=== PATIENT | male | born 1950 | race African-American/Black ===

== ENCOUNTER 2018-11-25 09:31 | Inpatient (IN) | payer MEDICARE, MEDICAID ==
[~2018-11-25] VITALS: Ht 177.8 cm; Wt 110.2 kg
[~2018-11-25 09:31] MED LIST: ALLOPURINOL100 M1 ORAL; ASPIRIN81 MG ORAL; ATORVASTATIN CA20 MG ORAL; CARVEDILOL25 MG ORAL; CATAPRES0.2 MG ORAL; DIGOXIN125 MCG ORAL; DILTIAZEM 24HR120 M1 ORAL; DOCUSATE SODIU100 MG ORAL; ELESTAT5 ML BOTH EYES; FERROUS SULFAT325 MG ORAL; FUROSEMIDE40 MG ORAL; HYDRALAZINE HCL50 MG PO; LANTUS5 UNITS SUBQ; LISINOPRIL10 MG ORAL; METOPROLOL SUCC50 MG ORAL; MILK OF MA400 MG/51 ORAL; NIFEDIPINE ER90 M3 ORAL; NITROGLYCERIN0.4 MG SL; POTASSIUM CHLO20 ME1 ORAL; REDNESS RELIEF15 M1 BOTH EYES; VITAMIN D1000 UNI1 ORAL; WARFARIN SODIU7.5 MG ORAL; ZAROXOLYN2.5 MG ORAL
[2018-11-25] MEDS ORDERED: ZOLOFT25 MG ORAL (09:39)
[2018-11-25] MEDS ORDERED: COZAAR25 MG ORAL (09:39)
[2018-11-25] MEDS ORDERED: ABILIFY2 MG ORAL (09:39)
[2018-11-25] MEDS ORDERED: ATORVASTATIN CA10 MG ORAL (09:39)
[2018-11-25] MEDS ORDERED: COUMADIN1 MG ORAL (09:39)
[2018-11-25] MEDS ORDERED: PROTONIX40 MG ORAL (09:39)
[2018-11-25 09:40] VITALS: BP 127/64
--- NOTE | 2018-11-25 09:40 | NUR ---
ED Nurse Note: BROUGHT IN BY RA 60 FROM HOME DUE TO ALOC. MISSED DIALYSIS TODAY; T/TH/SAT. BS WAS 20 AT SCENE, GLUCAGON GIVEN BY EMS. BS IS 90 AT THE BEDSIDE. PT IS A/OX3.
--- NOTE | 2018-11-25 09:45 | NUR ---
ED Nurse Note: PACEMAKER ON THE LEFT CHEST NOTED
--- NOTE | 2018-11-25 09:51 | Emergency Room Report ---
History of Present Illness General Chief Complaint: Altered Level of Consciousness Source: Medical Record, EMS Present Illness HPI Patient has history of diabetes hypertension and cardiac disease. Patient apparently is on a blood thinner. Patient also has a history of renal failure and is on dialysis. Usually gets dialysis Tuesdays and Saturdays. Patient was TO get dialysis today. Patient apparently was more confused since yesterday and this morning was very difficult to arouse. Paramedics were contacted about the patient here for further evaluation. On arrival they found that the patient was hypoglycemic. They gave patient sugar in the mouth and it appeared to improve but then he was again hypoglycemic and the paramedics gave him one dose of glucagon. Patient now is more responsive but still appears to be confused. No further history is available as time. Symptoms noted to be highly severe. No noted history of fever cough runny nose or sore throat.No other modifying factors. No other associated signs and symptoms. No other complaints were noted. Allergies: Coded Allergies: No Known Allergies (Verified , 07/21/11) Patient History Past Medical History: DM, HTN, CAD, AFib, renal disease, dialysis - Saturday Past Surgical History: other - Right AV fistula Social History Narrative no history of alcohol drug or tobacco use Reviewed Nursing Documentation: PMH: Agreed; PSxH: Agreed Nursing Documentation-PMH Past Medical History: No History, Except For Hx Cardiac Problems: Yes Hx Hypertension: Yes Hx Pacemaker: No Hx Asthma: Yes - PNA Hx COPD: Yes Hx Diabetes: Yes Hx Cancer: No Hx Gastrointestinal Problems: Yes Hx Dialysis: No - POOR KIDNEY FUNCTION Hx Neurological Problems: Yes Hx Cerebrovascular Accident: Yes Hx Headaches: Yes Hx Weakness: Yes - lower extreities Review of Systems All Other Systems: limited - Poor mental status Physical Exam Vital Signs Date Time Temp Pulse Resp B/P (MAP) Pulse Ox O2 Delivery O2 Flow Rate FiO2 11/25/18 09:35 97.3 69 18 110/67 98 Room Air Sp02 EP Interpretation: reviewed, normal General Appearance: alert, other - Appears confused, Chronically Ill Head: atraumatic Eyes: bilateral eye normal inspection ENT: dry mucus membranes Neck: normal inspection, supple, no bony tend Respiratory: normal inspection, lungs clear, normal breath sounds, no respiratory distress, no retraction, no wheezing Cardiovascular #1: no edema, irregularly irregular Gastrointestinal: normal inspection, normal bowel sounds, soft, no hernia Genitourinary: no CVA tenderness Musculoskeletal: normal inspection, back normal Neurologic: alert, responsive, other - Grossly nonfocal Psychiatric: depressed affect Skin: normal inspection, normal color, no rash Procedures Critical Care Time Critical Care Time Patient had a critical medical condition which untreated could potentially result in life or limb threatening injury. Total critical care time excluding procedures was approximately 45 minutes. Medical Decision Making Diagnostic Impression: Primary Impression: Altered level of consciousness Additional Impressions: Hypoglycemia Fluid overload Elevated troponin ER Course Patient presents emergency department today complaining severe weakness shortness of breath hypoglycemia. Differential diagnoses include acute electrolyte abnormality, sepsis, acute DC, dietary noncompliance just name a few.Given the severity of the patient's presentation I felt this is a highly complex patient. This patient required extensive workup. Patient's laboratory workup shows glucose which is appropriate. Patient chest x-ray shows fluid congestion. Given the patient has altered mental status hypoglycemia which require repeated doses of intervention patient will be admitted to telemetry for further treatment case was discussed with Dr. Donohue for admission. Case also discussed with Dr. Francisco Javier Abraham from nephrology. Labs Test 11/25/18 10:20 11/25/18 12:10 White Blood Count 10.6 K/UL (4.8-10.8) Red Blood Count 4.81 M/UL (4.70-6.10) Hemoglobin 15.4 G/DL (14.2-18.0) Hematocrit 48.5 % (42.0-52.0) Mean Corpuscular Volume 101 FL (80-99) Mean Corpuscular Hemoglobin 32.1 PG (27.0-31.0) Mean Corpuscular Hemoglobin Concent 31.8 G/DL (32.0-36.0) Red Cell Distribution Width 15.4 % (11.6-14.8) Platelet Count 201 K/UL (150-450) Mean Platelet Volume 9.7 FL (6.5-10.1) Neutrophils (%) (Auto) 79.3 % (45.0-75.0) Lymphocytes (%) (Auto) 11.3 % (20.0-45.0) Monocytes (%) (Auto) 5.5 % (1.0-10.0) Eosinophils (%) (Auto) 2.6 % (0.0-3.0) Basophils (%) (Auto) 1.2 % (0.0-2.0) Prothrombin Time 16.5 SEC (9.30-11.50) Prothromb Time International Ratio 1.6 (0.9-1.1) Activated Partial Thromboplast Time 28 SEC (23-33) Sodium Level 134 MMOL/L (136-145) Potassium Level 6.3 MMOL/L (3.5-5.1) Chloride Level 93 MMOL/L (98-107) Carbon Dioxide Level 19 MMOL/L (21-32) Anion Gap 22 mmol/L (5-15) Blood Urea Nitrogen 93 mg/dL (7-18) Creatinine 10.2 MG/DL (0.55-1.30) Estimat Glomerular Filtration Rate 6.2 mL/min (>60) Glucose Level 226 MG/DL (74-106) Calcium Level 8.5 MG/DL (8.5-10.1) Total Bilirubin 0.6 MG/DL (0.2-1.0) Aspartate Amino Transf (AST/SGOT) 35 U/L (15-37) Alanine Aminotransferase (ALT/SGPT) 30 U/L (12-78) Alkaline Phosphatase 86 U/L (46-116) Total Creatine Kinase 406 U/L (26-308) Creatine Kinase MB 7.7 NG/ML (0.0-3.6) Creatine Kinase MB Relative Index 1.8 Troponin I 0.078 ng/mL (0.000-0.056) C-Reactive Protein, Quantitative 1.5 mg/dL (0.00-0.90) Pro-B-Type Natriuretic Peptide 35280 pg/mL (0-125) Total Protein 7.8 G/DL (6.4-8.2) Albumin 3.5 G/DL (3.4-5.0) Globulin 4.3 g/dL Albumin/Globulin Ratio 0.8 (1.0-2.7) Lipase 89 U/L (73-393) EKG Diagnostic Results Rate: normal Rhythm: other - Atrial flutter, irregular ST Segments: no acute changes Rhythm Strip Diag. Results EP Interpretation: yes Rate: 80s Rhythm: no PVC's, other - Atrial flutter, no other ectopy Chest X-Ray Diagnostic Results Chest X-Ray Diagnostic Results : Chest X-Ray Ordered: Yes # of Views/Limited/Complete: 1 View Indication: Shortness of Breath EP Interpretation: No Impression: Other - Cardiomegaly, CHF, pacemaker Last Vital Signs Date Time Temp Pulse Resp B/P (MAP) Pulse Ox O2 Delivery O2 Flow Rate FiO2 11/25/18 09:35 97.3 69 18 110/67 98 Room Air Status: improved Disposition: ADMITTED INPATIENT Condition: Serious Viraj Alanis MD Nov 25, 2018 09:51
--- NOTE | 2018-11-25 10:10 | NUR ---
ED Nurse Note: UNABLE TO GET IV ACCESS. CONTACTED SECURITY COMPLIANCE ENGINEER TO DRAW BLOOD. NOTIFIED DR. YEH.
--- NOTE | 2018-11-25 10:13 | NUR ---
ED Nurse Note: no iv access. apple juice was given. bs 90
[2018-11-25] MEDS ORDERED: Heparin 2000 units/Ns 1000ml INJ ONE (10:15)
[2018-11-25] MEDS ORDERED: Lidocaine 1% Plain 30 ml INJ ONE (10:15)
--- NOTE | 2018-11-25 10:15 | NUR ---
ED Nurse Note: VENTILATION EQUIPMENT TENDER AT THE BEDSIDE. PER PT, HE NO LONGER PRODUCE URINE. NOTIFIED DR. YEH. PER DR. YEH, IT'S OK NOT TO COLLECT URINE.
--- NOTE | 2018-11-25 10:20 | NUR ---
ED Nurse Note: RECEIVED PICC ORDERED. PICC LINE TEAM CONTACTED. PT SIGNED PICC LINE CONSENT FORM, VERBALIZED UNDERSTANDING.
[2018-11-25] MEDS ORDERED: Heparin 2000 units/Ns 1000ml INJ SCH (10:30)
[2018-11-25] MEDS ORDERED: Lidocaine 1% Plain 30 ml INJ SCH (10:30)
[2018-11-25 10:38] LABS: BASOPHILS % (AUTO) 1.2 % (0.0-2.0); EOSINOPHILS % (AUTO) 2.6 % (0.0-3.0); HEMATOCRIT 48.5 % (42.0-52.0); HEMOGLOBIN 15.4 G/DL (14.2-18.0); LYMPHOCYTES % (AUTO) 11.3 % (20.0-45.0); MEAN CORPUSCULAR VOLUME 101 FL (80-99); MONOCYTES % (AUTO) 5.5 % (1.0-10.0); NEUTROPHILS % (AUTO) 79.3 % (45.0-75.0); PLATELET COUNT 201 K/UL (150-450); RED BLOOD COUNT 4.81 M/UL (4.70-6.10); RED CELL DISTRIBUTION WIDTH 15.4 % (11.6-14.8); WHITE BLOOD COUNT 10.6 K/UL (4.8-10.8)
[2018-11-25 10:44] LABS: INR 1.6 (0.9-1.1)
--- NOTE | 2018-11-25 10:50 | NUR ---
ED Nurse Note: PT WENT DOWN FOR PICC LINE INSERTION VIA GURNEY
[2018-11-25] MEDS ORDERED: Miralax 17gm pkt ORAL PRN (11:30)
[2018-11-25] MEDS ORDERED: Albuterol/Ipratropium 3ml neb HHN PRN (11:30)
[2018-11-25 11:40] VITALS: BP 146/84
--- NOTE | 2018-11-25 12:04 | Diagnostic Imaging Report ---
Indications: Needs long-term IV access Technique: Ultrasound confirms patent compressible left basilic vein. Total sterile technique, including sterile probe cover and sterile gel, hat, mask, sterile gown, large sterile drape, and preparation with 2% chlorhexidine utilized. Local anesthesia with 1% lidocaine. Under real-time ultrasound guidance, puncture basilic vein using 21-gauge needle, documented and archived, passage 0.018 guidewire under direct fluoroscopy, over which was passed a 5 Green[place]ic peel-away sheath. Guidewire would not pass beyond the innominate vein, despite attempts at manipulating with a Kumpe catheter, presumably due to the presence of a pacemaker. Right-sided access not possible due to the presence of a dialysis fistula. Guidewire was used to determine appropriate catheter length. 5 Green[place]ic Bard dual-lumen power PICC cut to 22 cm. It was inserted through the peel-away sheath. Peel-away sheath and guidewire removed. Catheter fixed to the skin. Both catheter ports aspirated and flushed. Patient tolerated procedure well, without immediate complication. Digital radiograph documents satisfactory catheter tip position, at the level of the left axillary vein. Total fluoroscopy time 149 seconds. Total dose area product [id number] mGycm2 Total number of images: 2 Impression: Placement of left arm PICC, as described, cut short due to inability to pass a guidewire centrally, suitable only for use as a midline Procedure discussed by phone with Dr. Alanis in the emergency room
--- NOTE | 2018-11-25 12:13 | NUR ---
ED Nurse Note: MIDLINE IN PLACED ON THE LEFT UPPER ARM. BS 174;
--- NOTE | 2018-11-25 12:43 | NUR ---
ED Nurse Note: VRE/CRE/MRSA SWAB SENT DOWN TO THE AL[facility]. [place] LIST DONE. WAITING FOR THE REMAINING LAB RESULTS TO COME BACK.
[2018-11-25 12:57] LABS: ALANINE AMINOTRANSFERASE 30 U/L (12-78); ALBUMIN 3.5 G/DL (3.4-5.0); ALBUMIN/GLOBULIN RATIO 0.8 (1.0-2.7); ALKALINE PHOSPHATASE 86 U/L (46-116); ANION GAP 22 mmol/L (5-15); ASPARTATE AMINO TRANSFERASE 35 U/L (15-37); BILIRUBIN,TOTAL 0.6 MG/DL (0.2-1.0); BLOOD UREA NITROGEN 93 mg/dL (7-18); CALCIUM 8.5 MG/DL (8.5-10.1); CARBON DIOXIDE 19 MMOL/L (21-32); CHLORIDE 93 MMOL/L (98-107); CKMB 7.7 NG/ML (0.0-3.6); CREATINE KINASE 406 U/L (26-308); CREATININE 10.2 MG/DL (0.55-1.30); SODIUM 134 MMOL/L (136-145)
[2018-11-25 13:02] LABS: POTASSIUM 6.3 MMOL/L (3.5-5.1)
--- NOTE | 2018-11-25 13:07 | Diagnostic Imaging Report ---
Indication: Cough Technique: One view of the chest Comparison: 10/19/2013 Findings: The heart is enlarged. There is a left chest pacemaker. There is mild interstitial congestion, similar to the prior study. There may be a small amount of pleural fluid on the left Impression: Cardiomegaly with evidence of congestive heart failure and possible left pleural effusion
--- NOTE | 2018-11-25 13:08 | NUR ---
ED Nurse Note: NOTIFIED DR. YEH REGARDING PT'S K OF 6.4, PER DR. YEH, PT IS RENAL FAILURE AND HE IS OKAY TO BE TRANSFER TO TELEMETRY. WILL CALL FOR THE REPORT.
--- NOTE | 2018-11-25 13:11 | NUR ---
ED Nurse Note: TELEPHONE REPORT GIVEN TO KALEIGH GANNON FROM TELEMETRY. ENDORSED TO KALEIGH GANNON THAT POTASSIUM IS 6.3. WILL TRANSFER THE PATIENT.
--- NOTE | 2018-11-25 13:20 | NUR ---
TRANSFER TO FLOOR: Patient transferred to #[id number] as ordered via gurney with mfts. Report given to KALEIGH Covington. Belongings given to patient. No s/s of distress.
--- NOTE | 2018-11-25 13:21 | NUR ---
NURSE NOTES: Patient is transferred from ED and received report from KALEIGH Cruz. Patient is alert and oriented x3. Able to follow direction. Drowsy and fatigue. Left upper arm midline double lumens noted. patent and intact. Skin intact. Inventory check done. Put cna hha on. VSS. Will continue plan of care.
--- NOTE | 2018-11-25 14:01 | History and Physical ---
History of Present Illness General Date patient seen: Nov 25, 2018 Reason for Hospitalization: Altered Level of Consciousness Present Illness HPI 68 year old male with hx of DM, HTN, CAD, AFib, end stage renal disease on dialysis. on Tuesdays and Saturdays brought in to ER because he was apparently more confused and was very difficult to arouse. Paramedics found that the patient was hypoglycemic. They gave patient sugar in the mouth and it appeared to improve but then he was again hypoglycemic and the paramedics gave him one dose of glucagon. He is admitted to telemetry for persistent hypoglycemia. Allergies: Coded Allergies: No Known Allergies (Verified , 07/21/11) Medication History Scheduled Allopurinol* (Allopurinol*), 100 MG ORAL BID, (Reported) Aripiprazole* (Abilify*), Unknown Dose ORAL DAILY, (Reported) Aspirin* (Aspirin*), 81 MG ORAL DAILY, (Reported) Atorvastatin Calcium* (Atorvastatin Calcium*), 10 MG ORAL BEDTIME, (Reported) Atorvastatin Calcium* (Lipitor*), Unknown Dose ORAL BEDTIME, (Reported) Cholecalciferol (Vitamin D3)* (Vitamin D*), 1,000 UNIT ORAL DAILY, (Reported) Digoxin* (Digoxin*), 125 MCG ORAL DAILY, (Reported) Docusate Sodium* (Docusate Sodium*), 100 MG ORAL TID, (Reported) Ferrous Sulfate* (Ferrous Sulfate*), 325 MG ORAL BID, (Reported) Furosemide* (Lasix*), 40 MG ORAL DAILY, (Reported) Hydralazine Hcl* (Hydralazine Hcl*), 50 MG PO EVERY 8 HOURS, (Reported) Insulin Glargine (Lantus), 35 UNITS SUBQ BID, (Reported) Lisinopril* (Lisinopril*), 20 MG ORAL DAILY, (Reported) Losartan Potassium* (Cozaar*), Unknown Dose ORAL DAILY, (Reported) Metolazone (Metolazone), 2.5 MG ORAL DAILY, (Reported) Metoprolol Succinate* (Metoprolol Succinate*), 50 MG ORAL EVERY 8 HOURS, ( Reported) Nifedipine Er* (Nifedipine Er*), 60 MG ORAL BID, (Reported) Nitroglycerin (Nitroglycerin), 0.4 MG SL PRN, (Reported) Pantoprazole* (Protonix*), Unknown Dose ORAL DAILY, (Reported) Potassium Chloride* (K-Dur*), 20 MEQ ORAL DAILY, (Reported) Sertraline Hcl* (Zoloft*), Unknown Dose ORAL DAILY, (Reported) Warfarin Sod* (Warfarin Sod*), 7.5 MG ORAL DAILY, (Reported) Warfarin Sod* (Coumadin*), Unknown Dose ORAL DAILY, (Reported) Patient History Healthcare decision maker Resuscitation status Advanced Directive on File Past Medical/Surgical History Past Medical/Surgical History: (1) Diabetes (2) COPD (chronic obstructive pulmonary disease) (3) ESRF (end stage renal failure) Review of Systems All Other Systems: negative except mentioned in HPI Physical Exam General Appearance: WD/WN Lines, tubes and drains: peripheral HEENT: normocephalic, atraumatic Neck: non-tender, normal alignment Respiratory/Chest: chest wall non-tender, lungs clear Breasts: no masses Cardiovascular/Chest: normal peripheral pulses Abdomen: non tender Last 24 Hour Vital Signs Date Time Temp Pulse Resp B/P (MAP) Pulse Ox O2 Delivery O2 Flow Rate FiO2 11/25/18 11:40 97.3 92 18 146/84 98 Nasal Cannula 2.0 11/25/18 09:40 97.3 92 18 127/64 98 Room Air 11/25/18 09:40 69 18 Room Air 11/25/18 09:35 97.3 69 18 110/67 98 Room Air Laboratory Tests Test 11/25/18 10:20 11/25/18 12:10 White Blood Count 10.6 K/UL (4.8-10.8) Red Blood Count 4.81 M/UL (4.70-6.10) Hemoglobin 15.4 G/DL (14.2-18.0) Hematocrit 48.5 % (42.0-52.0) Mean Corpuscular Volume 101 FL (80-99) H Mean Corpuscular Hemoglobin 32.1 PG (27.0-31.0) H Mean Corpuscular Hemoglobin Concent 31.8 G/DL (32.0-36.0) L Red Cell Distribution Width 15.4 % (11.6-14.8) H Platelet Count 201 K/UL (150-450) Mean Platelet Volume 9.7 FL (6.5-10.1) Neutrophils (%) (Auto) 79.3 % (45.0-75.0) H Lymphocytes (%) (Auto) 11.3 % (20.0-45.0) L Monocytes (%) (Auto) 5.5 % (1.0-10.0) Eosinophils (%) (Auto) 2.6 % (0.0-3.0) Basophils (%) (Auto) 1.2 % (0.0-2.0) Prothrombin Time 16.5 SEC (9.30-11.50) H Prothromb Time International Ratio 1.6 (0.9-1.1) H Activated Partial Thromboplast Time 28 SEC (23-33) Sodium Level 134 MMOL/L (136-145) L Potassium Level 6.3 MMOL/L (3.5-5.1) *H Chloride Level 93 MMOL/L (98-107) L Carbon Dioxide Level 19 MMOL/L (21-32) L Anion Gap 22 mmol/L (5-15) H Blood Urea Nitrogen 93 mg/dL (7-18) H Creatinine 10.2 MG/DL (0.55-1.30) H Estimat Glomerular Filtration Rate 6.2 mL/min (>60) Glucose Level 226 MG/DL (74-106) H Calcium Level 8.5 MG/DL (8.5-10.1) Total Bilirubin 0.6 MG/DL (0.2-1.0) Aspartate Amino Transf (AST/SGOT) 35 U/L (15-37) Alanine Aminotransferase (ALT/SGPT) 30 U/L (12-78) Alkaline Phosphatase 86 U/L (46-116) Total Creatine Kinase 406 U/L (26-308) H Creatine Kinase MB 7.7 NG/ML (0.0-3.6) H Creatine Kinase MB Relative Index 1.8 Troponin I 0.078 ng/mL (0.000-0.056) Pro-B-Type Natriuretic Peptide 89901 pg/mL (0-125) H Total Protein 7.8 G/DL (6.4-8.2) Albumin 3.5 G/DL (3.4-5.0) Globulin 4.3 g/dL Albumin/Globulin Ratio 0.8 (1.0-2.7) L Lipase 89 U/L (73-393) Height (Feet): 5 Height (Inches): 10.00 Weight (Pounds): 250 Medications Current Medications Medications (Trade) Dose Ordered Sig/Divya Route PRN Reason Start Time Stop Time Status Last Admin Dose Admin Acetaminophen (Tylenol) 650 mg Q4H PRN ORAL Fever (temp>100.5F) 11/25/18 11:30 12/25/18 11:29 Albuterol/ Ipratropium (Albuterol/ Ipratropium) 3 ml Q4H PRN HHN Shortness of Breath 11/25/18 11:30 11/30/18 11:29 Allopurinol (Zyloprim) 100 mg BID ORAL 11/25/18 18:00 12/25/18 17:59 Aripiprazole (Abilify) 10 mg DAILY ORAL 11/26/18 09:00 12/26/18 08:59 Chlorhexidine Gluconate (Pia-Hex 2%) 1 applic DAILY@2000 TOPIC 11/25/18 20:00 12/25/18 19:59 Dextrose (Dextrose 50%) 25 ml Q30M PRN IV Hypoglycemia 11/25/18 11:30 12/25/18 11:29 Dextrose (Dextrose 50%) 50 ml Q30M PRN IV Hypoglycemia 11/25/18 11:30 12/25/18 11:29 Digoxin (Lanoxin) 0.125 mg DAILY ORAL 11/26/18 09:00 12/26/18 08:59 Heparin Sodium (Porcine) (Heparin 5000 units/ml) 5,000 units EVERY 12 HOURS SUBQ 11/25/18 21:00 12/25/18 20:59 Hydralazine HCl (Apresoline) 50 mg EVERY 8 HOURS ORAL 11/25/18 14:00 12/25/18 13:59 Nifedipine (Procardia XL) 60 mg BID ORAL 11/25/18 18:00 12/25/18 17:59 Ondansetron HCl (Zofran) 4 mg Q6H PRN IVP Nausea & Vomiting 11/25/18 11:30 12/25/18 11:29 Polyethylene Glycol (Miralax) 17 gm DAILYPRN PRN ORAL Constipation 11/25/18 11:30 12/25/18 11:29 Temazepam (Restoril) 15 mg HSPRN PRN ORAL Insomnia 11/25/18 11:30 2/19/19 11:29 Assessment/Plan Problem List: (1) Acute metabolic encephalopathy ICD Codes: G93.41 - Metabolic encephalopathy SNOMED: 59882111, 257666736 (2) Hypoglycemia ICD Codes: E16.2 - Hypoglycemia, unspecified SNOMED: 260085218 (3) ESRF (end stage renal failure) ICD Codes: N18.6 - End stage renal disease SNOMED: 87437526 (4) COPD (chronic obstructive pulmonary disease) ICD Codes: J44.9 - COPD (chronic obstructive pulmonary disease) SNOMED: 22201772 (5) Diabetes ICD Codes: E11.9 - Diabetes SNOMED: 33637635 Assessment/Plan telemetry neuro evaluation Nephrology for HD symptomatic treatment check electrolytes endocrinology to see Luis Miguel Donohue MD Nov 25, 2018 14:01
[2018-11-25] MEDS: HydrALAZINE 50mg tab ORAL SCH ×2 (14:38→22:00)
--- NOTE | 2018-11-25 14:38 | Consultation ---
Consult Note Consult Note asked to eval for dialysis management Patient has history of diabetes hypertension and cardiac disease. Patient apparently is on a blood thinner. Patient also has a history of renal failure and is on dialysis. Usually gets dialysis Tuesdays and Saturdays. Patient was post get dialysis today. Patient apparently was more confused since yesterday and this morning was very difficult to arouse. Paramedics were contacted about the patient here for further evaluation. On arrival they found that the patient was hypoglycemic. They gave patient sugar in the mouth and it appeared to improve but then he was again hypoglycemic and the paramedics gave him one dose of glucagon. Patient now is more responsive but still appears to be confused. No further history is available as time. Symptoms noted to be highly severe. No noted history of fever cough runny nose or sore throat.No other modifying factors. No other associated signs and symptoms. No other complaints were noted. No Known Allergies (Verified , 07/21/11) Past Medical History: DM, HTN, CAD, AFib, renal disease, dialysis - Saturday Past Surgical History: other - Right AV fistula Social History Narrative no history of alcohol drug or tobacco use Reviewed Nursing Documentation: PMH: Agreed; PSxH: Agreed Nursing Documentation-PMH Past Medical History: No History, Except For Hx Cardiac Problems: Yes Hx Hypertension: Yes Hx Asthma: Yes - PNA Hx COPD: Yes Hx Diabetes: Yes Hx Gastrointestinal Problems: Yes Hx Dialysis: No - POOR KIDNEY FUNCTION Hx Neurological Problems: Yes Hx Cerebrovascular Accident: Yes Hx Headaches: Yes Hx Weakness: Yes - lower extreities examined data reviewed encephalopathic Assessment/Plan ESRD, Presents with ALOC and High K Encephalopathy DM HTN Atrial Fib Flutter elevated Troponin I HD + UF on 1 K bath Iker Keep BP and BS under control Nitro dermal Francisco aJvier Abraham MD Nov 25, 2018 14:38
[2018-11-25] MEDS: D5NS 1,000 ML IV SCH (14:45)
[2018-11-25 15:34] VITALS: BP 126/74
[2018-11-25] MEDS: Nitroglycerin Patch 0.4mg TDERMAL SCH (15:38)
[2018-11-25 16:00] VITALS: BP 104/76
--- NOTE | 2018-11-25 17:05 | NUR ---
NURSE NOTES: Called [facility] and talked with Michael. Patient will be dialyzed tonight.
[2018-11-25] MEDS ORDERED: Allopurinol 100mg Tab ORAL SCH (18:00)
--- NOTE | 2018-11-25 18:35 | NUR ---
NURSE NOTES: Obtained consent for first hemodialysis.
--- NOTE | 2018-11-25 19:10 | NUR ---
NURSE NOTES: Received pt. and report from KALEIGH Covington. Pt. is A/Ox2. Pt. is currently receiving dialysis in bed. IV site is intact, asymptomatic, and patent; currently running D5 NS @50cc/hr. vocal artist is in placed, bed is in the lowest position and locked, call light within reach. No acute distress noted at this time. Will continue plan of care. Addendum: 11/26/18 at 0004 by Jen Oneal Mai, RN ELAN AV shunt. JIMMIE witt currently running D5 NS @ 50cc/hr.
--- NOTE | 2018-11-25 19:25 | NUR ---
HAND-OFF: Report given to KALEIGH Agarwal. Patient is in stable condition and receiving dialysis. Endorsed plan of care.
[2018-11-25 20:00] VITALS: BP 95/49
--- NOTE | 2018-11-25 20:00 | NUR ---
NURSE NOTES: Dialysis nurse, Gerardo, endorsed that she did not remove any fluids and filtered only blood due to low BP.
--- NOTE | 2018-11-25 20:05 | NUR ---
NURSE NOTES: Paged Dr. Abraham to inform that dialysis nurse, Gerardo, did not remove any fluids; only filtered blood due to decreased BP of 90/49. Awaiting call back.
[2018-11-25] MEDS: Dyna-Hex 2% Top Sol 2oz TOPIC SCH (20:25)
[2018-11-25] MEDS: Pantoprazole Inj IVP SCH (20:26)
[2018-11-25] MEDS: Heparin 5000 units/ml inj SUBQ SCH (21:00)
--- NOTE | 2018-11-25 23:12 | Physician Query ---
--------- THIS DOCUMENT IS A PERMANENT PART OF THE MEDICAL RECORD --------- PLEASE COMPLETE DOCUMENT BEFORE SIGNING Dear Dr. Geri ABRAHAM Date: __11/25/18 Geophysics Scientist/CDS Name: Aime KRUGER Geophysics Scientist / CDS Phone # Exercise your independent professional judgment when responding to query. Question asked do not imply a particular answer is desired/expected. Clinical Documentation States: "ENCEPHALOPATHY" documented in Dr. Abraham's Consultation Note "Patient apparently was more confused since yesterday and this morning was very difficult to arouse. Paramedics were contacted about the patient here for further evaluation. On arrival they found that the patient was hypoglycemic. They gave patient sugar in the mouth and it appeared to improve but then he was again hypoglycemic and the paramedics gave him one dose of glucagon" -- documented in ED Report Clinical Findings Show: Na = 134 mmol/l K = 6.3 mmol/l Creatinine = 10.2 mg/dl Glucose = 226 mg/dl Please indicate the nature and chronicity of the condition below: [] Metabolic Encephalopathy [] Toxic Encephalopathy [*] Toxic - Metabolic Encephalopathy [] Progressive Encephalopathy [] Encephalopathy, Other [] Other: [] Not Applicable Severity [] Acute [] Chronic [*] Acute on Chronic [] Unable to determine Condition Present on Admission: [*] Yes [] No []Clinically Undeterminable Please also document in your Progress Notes and/or Discharge Summary and indicate if the condition was present on admission. KARISSA ABRAHAM M.D DATE & TIME [facility]
[2018-11-26] VITALS: BP 105/55
[2018-11-26 04:00] VITALS: BP_SYST 106; BP_SYST 119; BP_DIAS 69; BP_DIAS 70
[2018-11-26] MEDS: HydrALAZINE 50mg tab ORAL SCH (06:00)
--- NOTE | 2018-11-26 06:50 | NUR ---
NURSE NOTES: Pt.'s BP has been low all night. Last BP was 107/61. Non-admit Hydralazine to prevent BP from dropping lower. Informed Dr. Donohue.
--- NOTE | 2018-11-26 07:17 | NUR ---
HAND-OFF: Report given to KALEIGH Covington.
--- NOTE | 2018-11-26 07:19 | NUR ---
NURSE NOTES: Received report from KALEIGH Agarwal. Patient is in stable condition and alert and oriented x3. No acute distress/SOB noted. Patient denies any pain/discomfort at this time. Will continue plan of care.
[2018-11-26 07:21] LABS: BASOPHILS % (AUTO) 1.6 % (0.0-2.0); EOSINOPHILS % (AUTO) 2.8 % (0.0-3.0); HEMATOCRIT 46.4 % (42.0-52.0); HEMOGLOBIN 14.8 G/DL (14.2-18.0); LYMPHOCYTES % (AUTO) 17.1 % (20.0-45.0); MEAN CORPUSCULAR VOLUME 100 FL (80-99); MONOCYTES % (AUTO) 9.7 % (1.0-10.0); NEUTROPHILS % (AUTO) 68.9 % (45.0-75.0); PLATELET COUNT 160 K/UL (150-450); RED BLOOD COUNT 4.66 M/UL (4.70-6.10); RED CELL DISTRIBUTION WIDTH 15.3 % (11.6-14.8); WHITE BLOOD COUNT 8.3 K/UL (4.8-10.8)
[2018-11-26 07:46] LABS: ALANINE AMINOTRANSFERASE 34 U/L (12-78); ALBUMIN 3.9 G/DL (3.4-5.0); ALBUMIN/GLOBULIN RATIO 0.9 (1.0-2.7); ALKALINE PHOSPHATASE 90 U/L (46-116); ANION GAP 21 mmol/L (5-15); ASPARTATE AMINO TRANSFERASE 33 U/L (15-37); BILIRUBIN,TOTAL 0.7 MG/DL (0.2-1.0); BLOOD UREA NITROGEN 82 mg/dL (7-18); CALCIUM 9.2 MG/DL (8.5-10.1); CARBON DIOXIDE 22 MMOL/L (21-32); CHLORIDE 94 MMOL/L (98-107); CREATININE 9.2 MG/DL (0.55-1.30); PHOSPHORUS 6.7 MG/DL (2.5-4.9); POTASSIUM 5.4 MMOL/L (3.5-5.1); SODIUM 137 MMOL/L (136-145)
[2018-11-26 08:00] VITALS: BP 106/70
[2018-11-26] MEDS: ARIPiprazole 10mg tab ORAL SCH (08:48)
[2018-11-26] MEDS: Pantoprazole Inj IVP SCH (08:49)
[2018-11-26] MEDS: Heparin 5000 units/ml inj SUBQ SCH ×2 (08:57→21:40)
[2018-11-26] MEDS ORDERED: Digoxin 0.125mg tab ORAL SCH (09:00)
--- NOTE | 2018-11-26 10:26 | NUR ---
NURSE NOTES: Informed Dr. Donohue that pt's blood culture is positive for gram positive cocci in clusters.
[2018-11-26] MEDS ORDERED: Sodium Polystyrene Sulfonate 15gm Powder ORAL SCH (10:30)
[2018-11-26] MEDS: D5NS 1,000 ML IV SCH (10:42)
[2018-11-26 12:00] VITALS: BP 138/85
--- NOTE | 2018-11-26 12:41 | Pulmonology Progress Note ---
Assessment/Plan Problems: (1) Acute metabolic encephalopathy (2) Hypoglycemia (3) ESRF (end stage renal failure) (4) COPD (chronic obstructive pulmonary disease) (5) Diabetes Assessment/Plan mental status better continue telemetry neuro evaluation Nephrology for HD symptomatic treatment check electrolytes awaiting endocrinology Subjective ROS Limited/Unobtainable: No Constitutional: Reports: no symptoms HEENT: Repors: no symptoms Allergies: Coded Allergies: No Known Allergies (Verified , 07/21/11) Objective Last 24 Hour Vital Signs Date Time Temp Pulse Resp B/P (MAP) Pulse Ox O2 Delivery O2 Flow Rate FiO2 11/26/18 12:00 97.9 93 20 138/85 (102) 98 11/26/18 09:00 Room Air 11/26/18 08:49 77 11/26/18 08:00 97.9 77 18 106/70 (82) 98 11/26/18 08:00 77 11/26/18 06:00 107/61 11/26/18 04:00 97.7 77 18 106/69 (81) 100 11/26/18 03:24 85 11/26/18 00:00 97.2 78 18 105/55 (72) 98 11/25/18 23:26 84 11/25/18 22:00 95/49 11/25/18 21:00 Room Air 11/25/18 20:00 97.7 87 17 95/49 (64) 100 11/25/18 20:00 109 11/25/18 17:16 114 104/76 11/25/18 16:00 98.6 98 20 104/76 (85) 99 11/25/18 16:00 114 11/25/18 15:38 126/74 11/25/18 15:34 96.8 91 18 126/74 (91) 98 11/25/18 14:38 126/74 11/25/18 14:00 Nasal Cannula 2.0 11/25/18 13:20 97.3 92 18 146/84 98 Nasal Cannula 2.0 Intake and Output 11/25/18 11/26/18 19:00 07:00 Intake Total 263 ml 600 ml Balance 263 ml 600 ml Intake IV Total 263 ml 600 ml General Appearance: WD/WN HEENT: normocephalic Cardiovascular: normal peripheral pulses, regular rhythm Abdomen: normal bowel sounds Microbiology Date/Time Source Procedure Growth Status 11/25/18 12:10 Blood Blood Culture - Preliminary Resulted 11/25/18 11:50 Blood Blood Culture - Preliminary Resulted Laboratory Tests 11/26/18 04:35: White Blood Count 8.3, Red Blood Count 4.66L, Hemoglobin 14.8, Hematocrit 46.4, Mean Corpuscular Volume 100H, Mean Corpuscular Hemoglobin 31.9H, Mean Corpuscular Hemoglobin Concent 32.0, Red Cell Distribution Width 15.3H, Platelet Count 160, Mean Platelet Volume 8.0, Neutrophils (%) (Auto) 68.9, Lymphocytes (%) (Auto) 17.1L, Monocytes (%) (Auto) 9.7, Eosinophils (%) (Auto) 2.8, Basophils (%) (Auto) 1.6, Sodium Level 137, Potassium Level 5.4H, Chloride Level 94L, Carbon Dioxide Level 22, Anion Gap 21H, Blood Urea Nitrogen 82H, Creatinine 9.2H, Estimat Glomerular Filtration Rate 6.9, Glucose Level 72#L, Hemoglobin A1c 10.1H, Uric Acid 6.6, Calcium Level 9.2, Phosphorus Level 6.7H, Magnesium Level 2.4, Total Bilirubin 0.7, Aspartate Amino Transf (AST/SGOT) 33, Alanine Aminotransferase (ALT/SGPT) 34, Alkaline Phosphatase 90, Troponin I 0.077H, Pro-B-Type Natriuretic Peptide 65525U, Total Protein 8.2, Albumin 3.9, Globulin 4.3, Albumin/Globulin Ratio 0.9L, Vitamin B12 Level 1176H, Folate 95.1H , Thyroid Stimulating Hormone (TSH) 1.473 Current Medications Medications (Trade) Dose Ordered Sig/Divya Route PRN Reason Start Time Stop Time Status Last Admin Dose Admin Acetaminophen (Tylenol) 650 mg Q4H PRN ORAL Fever (temp>100.5F) 11/25/18 11:30 12/25/18 11:29 Albuterol/ Ipratropium (Albuterol/ Ipratropium) 3 ml Q4H PRN HHN Shortness of Breath 11/25/18 11:30 11/30/18 11:29 Aripiprazole (Abilify) 10 mg DAILY ORAL 11/26/18 09:00 12/26/18 08:59 11/26/18 08:48 Chlorhexidine Gluconate (Pia-Hex 2%) 1 applic DAILY@2000 TOPIC 11/25/18 20:00 12/25/18 19:59 11/25/18 20:25 Dextrose (Dextrose 50%) 25 ml Q30M PRN IV Hypoglycemia 11/25/18 11:30 12/25/18 11:29 Dextrose (Dextrose 50%) 50 ml Q30M PRN IV Hypoglycemia 11/25/18 11:30 12/25/18 11:29 Dextrose/Sodium Chloride 1,000 ml @ 50 mls/hr Q20H IV 11/25/18 14:45 12/25/18 14:44 11/26/18 10:42 Digoxin (Lanoxin) 0.125 mg DAILY ORAL 11/26/18 09:00 12/26/18 08:59 11/26/18 08:49 Heparin Sodium (Porcine) (Heparin 5000 units/ml) 5,000 units EVERY 12 HOURS SUBQ 11/25/18 21:00 12/25/18 20:59 11/26/18 08:57 Hydralazine HCl (Apresoline) 10 mg Q8HR ORAL 11/26/18 14:00 12/26/18 13:59 Nitroglycerin (Ntg) 1 patch Q24H TDERMAL 11/25/18 15:00 12/25/18 14:59 11/25/18 15:38 Ondansetron HCl (Zofran) 4 mg Q6H PRN IVP Nausea & Vomiting 11/25/18 11:30 12/25/18 11:29 Pantoprazole (Protonix) 40 mg EVERY 12 HOURS IVP 11/25/18 21:00 12/25/18 20:59 11/26/18 08:49 Polyethylene Glycol (Miralax) 17 gm DAILYPRN PRN ORAL Constipation 11/25/18 11:30 12/25/18 11:29 Temazepam (Restoril) 15 mg HSPRN PRN ORAL Insomnia 11/25/18 11:30 12/02/18 11:29 Luis Miguel Donohue MD Nov 26, 2018 12:41
--- NOTE | 2018-11-26 13:03 | Consultation ---
History of Present Illness General Chief Complaint: Altered Level of Consciousness Present Illness HPI 68 yo male with history of depression and anxiety, diabetes hypertension and cardiac disease. the pt pw confusion. during the eval the pt was unable to provide meaningful hx. the pt has waxing and waning of consciousness. The pt is forgetful Allergies: Coded Allergies: No Known Allergies (Verified , 07/21/11) Medication History Scheduled Allopurinol* (Allopurinol*), 100 MG ORAL BID, (Reported) Aripiprazole* (Abilify*), Unknown Dose ORAL DAILY, (Reported) Aspirin* (Aspirin*), 81 MG ORAL DAILY, (Reported) Atorvastatin Calcium* (Atorvastatin Calcium*), 10 MG ORAL BEDTIME, (Reported) Atorvastatin Calcium* (Lipitor*), Unknown Dose ORAL BEDTIME, (Reported) Cholecalciferol (Vitamin D3)* (Vitamin D*), 1,000 UNIT ORAL DAILY, (Reported) Digoxin* (Digoxin*), 125 MCG ORAL DAILY, (Reported) Docusate Sodium* (Docusate Sodium*), 100 MG ORAL TID, (Reported) Ferrous Sulfate* (Ferrous Sulfate*), 325 MG ORAL BID, (Reported) Furosemide* (Lasix*), 40 MG ORAL DAILY, (Reported) Hydralazine Hcl* (Hydralazine Hcl*), 50 MG PO EVERY 8 HOURS, (Reported) Insulin Glargine (Lantus), 35 UNITS SUBQ BID, (Reported) Lisinopril* (Lisinopril*), 20 MG ORAL DAILY, (Reported) Losartan Potassium* (Cozaar*), Unknown Dose ORAL DAILY, (Reported) Metolazone (Metolazone), 2.5 MG ORAL DAILY, (Reported) Metoprolol Succinate* (Metoprolol Succinate*), 50 MG ORAL EVERY 8 HOURS, ( Reported) Nifedipine Er* (Nifedipine Er*), 60 MG ORAL BID, (Reported) Nitroglycerin (Nitroglycerin), 0.4 MG SL PRN, (Reported) Pantoprazole* (Protonix*), Unknown Dose ORAL DAILY, (Reported) Potassium Chloride* (K-Dur*), 20 MEQ ORAL DAILY, (Reported) Sertraline Hcl* (Zoloft*), Unknown Dose ORAL DAILY, (Reported) Warfarin Sod* (Warfarin Sod*), 7.5 MG ORAL DAILY, (Reported) Warfarin Sod* (Coumadin*), Unknown Dose ORAL DAILY, (Reported) Patient History Limited by: medical condition History Provided By: Medical Record, PMD Healthcare decision maker Resuscitation status Full Code Advanced Directive on File No Past Medical/Surgical History Past Medical/Surgical History: (1) ESRF (end stage renal failure) (2) Atrial fibrillation with RVR (3) Anemia (4) Pulmonary hypertension (5) Hypercoagulable state (6) COPD (chronic obstructive pulmonary disease) (7) Pneumonia (8) Sepsis (9) UTI (lower urinary tract infection) (10) Diabetes (11) Acute metabolic encephalopathy (12) Hypoglycemia Review of Systems Psychiatric: Reports: prior hx, anxiety, depressed feelings, emotional problems Physical Exam General Appearance: alert, agitated Neurologic: responsive, disoriented, depressed affect Last 24 Hour Vital Signs Date Time Temp Pulse Resp B/P (MAP) Pulse Ox O2 Delivery O2 Flow Rate FiO2 11/26/18 12:00 97.9 93 20 138/85 (102) 98 11/26/18 09:00 Room Air 11/26/18 08:49 77 11/26/18 08:00 97.9 77 18 106/70 (82) 98 11/26/18 08:00 77 11/26/18 06:00 107/61 11/26/18 04:00 97.7 77 18 106/69 (81) 100 11/26/18 03:24 85 11/26/18 00:00 97.2 78 18 105/55 (72) 98 11/25/18 23:26 84 11/25/18 22:00 95/49 11/25/18 21:00 Room Air 11/25/18 20:00 97.7 87 17 95/49 (64) 100 11/25/18 20:00 109 11/25/18 17:16 114 104/76 11/25/18 16:00 98.6 98 20 104/76 (85) 99 11/25/18 16:00 114 11/25/18 15:38 126/74 11/25/18 15:34 96.8 91 18 126/74 (91) 98 11/25/18 14:38 126/74 11/25/18 14:00 Nasal Cannula 2.0 11/25/18 13:20 97.3 92 18 146/84 98 Nasal Cannula 2.0 Intake and Output 11/25/18 11/26/18 18:59 06:59 Intake Total 250 ml 563 ml Balance 250 ml 563 ml Intake IV Total 250 ml 563 ml Laboratory Tests Test 11/26/18 04:35 White Blood Count 8.3 K/UL (4.8-10.8) Red Blood Count 4.66 M/UL (4.70-6.10) L Hemoglobin 14.8 G/DL (14.2-18.0) Hematocrit 46.4 % (42.0-52.0) Mean Corpuscular Volume 100 FL (80-99) H Mean Corpuscular Hemoglobin 31.9 PG (27.0-31.0) H Mean Corpuscular Hemoglobin Concent 32.0 G/DL (32.0-36.0) Red Cell Distribution Width 15.3 % (11.6-14.8) H Platelet Count 160 K/UL (150-450) Mean Platelet Volume 8.0 FL (6.5-10.1) Neutrophils (%) (Auto) 68.9 % (45.0-75.0) Lymphocytes (%) (Auto) 17.1 % (20.0-45.0) L Monocytes (%) (Auto) 9.7 % (1.0-10.0) Eosinophils (%) (Auto) 2.8 % (0.0-3.0) Basophils (%) (Auto) 1.6 % (0.0-2.0) Sodium Level 137 MMOL/L (136-145) Potassium Level 5.4 MMOL/L (3.5-5.1) H Chloride Level 94 MMOL/L (98-107) L Carbon Dioxide Level 22 MMOL/L (21-32) Anion Gap 21 mmol/L (5-15) H Blood Urea Nitrogen 82 mg/dL (7-18) H Creatinine 9.2 MG/DL (0.55-1.30) H Estimat Glomerular Filtration Rate 6.9 mL/min (>60) Glucose Level 72 MG/DL (74-106) #L Hemoglobin A1c 10.1 % (4.3-6.0) H Uric Acid 6.6 MG/DL (2.6-7.2) Calcium Level 9.2 MG/DL (8.5-10.1) Phosphorus Level 6.7 MG/DL (2.5-4.9) H Magnesium Level 2.4 MG/DL (1.8-2.4) Total Bilirubin 0.7 MG/DL (0.2-1.0) Aspartate Amino Transf (AST/SGOT) 33 U/L (15-37) Alanine Aminotransferase (ALT/SGPT) 34 U/L (12-78) Alkaline Phosphatase 90 U/L (46-116) Troponin I 0.077 ng/mL (0.000-0.056) Pro-B-Type Natriuretic Peptide 08145 pg/mL (0-125) H Total Protein 8.2 G/DL (6.4-8.2) Albumin 3.9 G/DL (3.4-5.0) Globulin 4.3 g/dL Albumin/Globulin Ratio 0.9 (1.0-2.7) L Vitamin B12 Level 1176 PG/ML (193-986) H Folate 95.1 NG/ML (8.6-58.9) H Thyroid Stimulating Hormone (TSH) 1.473 uiU/mL (0.358-3.740) Height (Feet): 5 Height (Inches): 10.00 Weight (Pounds): 248 Medications Current Medications Medications (Trade) Dose Ordered Sig/Divya Route PRN Reason Start Time Stop Time Status Last Admin Dose Admin Acetaminophen (Tylenol) 650 mg Q4H PRN ORAL Fever (temp>100.5F) 11/25/18 11:30 12/25/18 11:29 Albuterol/ Ipratropium (Albuterol/ Ipratropium) 3 ml Q4H PRN HHN Shortness of Breath 11/25/18 11:30 11/30/18 11:29 Aripiprazole (Abilify) 10 mg DAILY ORAL 11/26/18 09:00 12/26/18 08:59 11/26/18 08:48 Chlorhexidine Gluconate (Pia-Hex 2%) 1 applic DAILY@2000 TOPIC 11/25/18 20:00 12/25/18 19:59 11/25/18 20:25 Dextrose (Dextrose 50%) 25 ml Q30M PRN IV Hypoglycemia 11/25/18 11:30 12/25/18 11:29 Dextrose (Dextrose 50%) 50 ml Q30M PRN IV Hypoglycemia 11/25/18 11:30 12/25/18 11:29 Dextrose/Sodium Chloride 1,000 ml @ 50 mls/hr Q20H IV 11/25/18 14:45 12/25/18 14:44 11/26/18 10:42 Digoxin (Lanoxin) 0.125 mg DAILY ORAL 11/26/18 09:00 12/26/18 08:59 11/26/18 08:49 Heparin Sodium (Porcine) (Heparin 5000 units/ml) 5,000 units EVERY 12 HOURS SUBQ 11/25/18 21:00 12/25/18 20:59 11/26/18 08:57 Hydralazine HCl (Apresoline) 10 mg Q8HR ORAL 11/26/18 14:00 12/26/18 13:59 Nitroglycerin (Ntg) 1 patch Q24H TDERMAL 11/25/18 15:00 12/25/18 14:59 11/25/18 15:38 Ondansetron HCl (Zofran) 4 mg Q6H PRN IVP Nausea & Vomiting 11/25/18 11:30 12/25/18 11:29 Pantoprazole (Protonix) 40 mg EVERY 12 HOURS IVP 11/25/18 21:00 12/25/18 20:59 11/26/18 08:49 Polyethylene Glycol (Miralax) 17 gm DAILYPRN PRN ORAL Constipation 11/25/18 11:30 12/25/18 11:29 Temazepam (Restoril) 15 mg HSPRN PRN ORAL Insomnia 11/25/18 11:30 12/02/18 11:29 Assessment/Plan Problem List: (1) Acute metabolic encephalopathy ICD Codes: G93.41 - Metabolic encephalopathy SNOMED: 98050334, 603845658 (2) MDD (major depressive disorder), recurrent episode, moderate ICD Codes: F33.1 - Major depressive disorder, recurrent, moderate SNOMED: 02425963, 786065167 (3) Anxiety disorder ICD Codes: F41.9 - Anxiety disorder, unspecified SNOMED: 788859257 Assessment/Plan Abilify 10mg po qam Zoloft 25mg qam provide ro/Glenda Cuellar MD Nov 26, 2018 13:03
[2018-11-26] MEDS ORDERED: HydrALAZINE 10mg Tab ORAL SCH (14:00)
[2018-11-26] MEDS: Nitroglycerin Patch 0.4mg TDERMAL SCH (14:21)
--- NOTE | 2018-11-26 14:42 | Nephrology Progress Note ---
Assessment/Plan Problem List: (1) ESRF (end stage renal failure) (2) Acute metabolic encephalopathy (3) Cardiomyopathy (4) Elevated troponin I level Assessment ESRD, Presents with ALOC and High K Encephalopathy DM HTN Atrial Fib Flutter elevated Troponin I Plan HD done , no UF as BP was low adjust BP meds HD in am 11/27 kayexelate as needed Keep BP and BS under control Nitro dermal echo: global hypokinesis Subjective ROS Limited/Unobtainable: No Constitutional: Reports: malaise, weakness Objective Objective Last 24 Hour Vital Signs Date Time Temp Pulse Resp B/P (MAP) Pulse Ox O2 Delivery O2 Flow Rate FiO2 11/26/18 14:21 114/55 11/26/18 13:41 114/55 11/26/18 12:00 97.9 93 20 138/85 (102) 98 11/26/18 12:00 88 11/26/18 09:00 Room Air 11/26/18 08:49 77 11/26/18 08:00 97.9 77 18 106/70 (82) 98 11/26/18 08:00 77 11/26/18 06:00 107/61 11/26/18 04:00 97.7 77 18 106/69 (81) 100 11/26/18 03:24 85 11/26/18 00:00 97.2 78 18 105/55 (72) 98 11/25/18 23:26 84 11/25/18 22:00 95/49 11/25/18 21:00 Room Air 11/25/18 20:00 97.7 87 17 95/49 (64) 100 11/25/18 20:00 109 11/25/18 17:16 114 104/76 11/25/18 16:00 98.6 98 20 104/76 (85) 99 11/25/18 16:00 114 11/25/18 15:38 126/74 11/25/18 15:34 96.8 91 18 126/74 (91) 98 Intake and Output 11/25/18 11/26/18 18:59 06:59 Intake Total 250 ml 563 ml Balance 250 ml 563 ml Intake IV Total 250 ml 563 ml Laboratory Tests 11/26/18 04:35: White Blood Count 8.3, Red Blood Count 4.66L, Hemoglobin 14.8, Hematocrit 46.4, Mean Corpuscular Volume 100H, Mean Corpuscular Hemoglobin 31.9H, Mean Corpuscular Hemoglobin Concent 32.0, Red Cell Distribution Width 15.3H, Platelet Count 160, Mean Platelet Volume 8.0, Neutrophils (%) (Auto) 68.9, Lymphocytes (%) (Auto) 17.1L, Monocytes (%) (Auto) 9.7, Eosinophils (%) (Auto) 2.8, Basophils (%) (Auto) 1.6, Sodium Level 137, Potassium Level 5.4H, Chloride Level 94L, Carbon Dioxide Level 22, Anion Gap 21H, Blood Urea Nitrogen 82H, Creatinine 9.2H, Estimat Glomerular Filtration Rate 6.9, Glucose Level 72#L, Hemoglobin A1c 10.1H, Uric Acid 6.6, Calcium Level 9.2, Phosphorus Level 6.7H, Magnesium Level 2.4, Total Bilirubin 0.7, Aspartate Amino Transf (AST/SGOT) 33, Alanine Aminotransferase (ALT/SGPT) 34, Alkaline Phosphatase 90, Troponin I 0.077H, Pro-B-Type Natriuretic Peptide 68007X, Total Protein 8.2, Albumin 3.9, Globulin 4.3, Albumin/Globulin Ratio 0.9L, Vitamin B12 Level 1176H, Folate 95.1H , Thyroid Stimulating Hormone (TSH) 1.473 11/26/18 12:40: Troponin I 0.065H Height (Feet): 5 Height (Inches): 10.00 Weight (Pounds): 248 General Appearance: no apparent distress Cardiovascular: arrhythmia Respiratory/Chest: decreased breath sounds Abdomen: distended Francisco Javier Abraham MD Nov 26, 2018 14:42
--- NOTE | 2018-11-26 15:37 | NUR ---
NURSE NOTES: called dialysis spoke with Eric and scheduled for tomorrow
[2018-11-26 15:54] VITALS: BP 101/71
--- NOTE | 2018-11-26 18:07 | NUR ---
CASE MANAGEMENT: REVIEW 68/M BIBA FROM HOME CC: ALOC . MISSED HD SI: FLUID OVERLOAD . ESRD ON HD . A-FIB T 97.3 HR 69 RR 18 BP 146/84 SAT 98% NC/2L GLUCOSE 72 K 5.4 BUN 21 CR 82 TROPONIN I 0.077 BNP 27420 IS: D50W BOLUS X1 HEPARIN INJ X1 LIDOCAINE INJ X1 KAYEXALATE PO X1 DIGOXIN PO X1 PATIENT ADMITTED TO TELEMETRY UNIT 11/25/2018 DCP: PATIENT IS FROM HOME
--- NOTE | 2018-11-26 19:30 | NUR ---
NURSE NOTES: Received pt. from KALEIGH Covington. Observed pt. resting in bed and watching TV. Pt. is A/Ox3. residential monitor is in placed, IV site is intact, asymptomatic and patent. Bed is in the lowest position and locked, call light is within reach. No acute distress noted at this time. Will continue plan of care.
--- NOTE | 2018-11-26 19:40 | NUR ---
HAND-OFF: Report given to KALEIGH Agarwal. Patient is in stable condition. Endorsed parish of care.
[2018-11-26 20:00] VITALS: BP 139/95
[2018-11-26] MEDS: Dyna-Hex 2% Top Sol 2oz TOPIC SCH (20:06)
[2018-11-26] MEDS: HydrALAZINE 10mg Tab ORAL SCH (21:39)
[2018-11-27] VITALS: BP 125/74
[2018-11-27 04:00] VITALS: BP 143/76
[2018-11-27] MEDS: HydrALAZINE 10mg Tab ORAL SCH ×3 (06:06→22:00)
[2018-11-27] MEDS: NovoLOG Insulin Flexpen SUBQ SCH ×4 (06:30→22:06)
[2018-11-27 06:40] LABS: BASOPHILS % (AUTO) 1.3 % (0.0-2.0); EOSINOPHILS % (AUTO) 4.2 % (0.0-3.0); HEMATOCRIT 41.5 % (42.0-52.0); HEMOGLOBIN 13.5 G/DL (14.2-18.0); LYMPHOCYTES % (AUTO) 19.2 % (20.0-45.0); MEAN CORPUSCULAR VOLUME 99 FL (80-99); MONOCYTES % (AUTO) 10.5 % (1.0-10.0); NEUTROPHILS % (AUTO) 64.8 % (45.0-75.0); PLATELET COUNT 149 K/UL (150-450); RED BLOOD COUNT 4.17 M/UL (4.70-6.10); RED CELL DISTRIBUTION WIDTH 15.5 % (11.6-14.8)
--- NOTE | 2018-11-27 07:22 | NUR ---
NURSE NOTES: Contacted [facility] D[facility] and spoke to Tab to confirm that pt. will be receiving dialysis today.
[2018-11-27 07:23] LABS: ALANINE AMINOTRANSFERASE 31 U/L (12-78); ALBUMIN 3.5 G/DL (3.4-5.0); ALBUMIN/GLOBULIN RATIO 0.9 (1.0-2.7); ALKALINE PHOSPHATASE 88 U/L (46-116); ANION GAP 24 mmol/L (5-15); ASPARTATE AMINO TRANSFERASE 29 U/L (15-37); BILIRUBIN,TOTAL 0.7 MG/DL (0.2-1.0); BLOOD UREA NITROGEN 91 mg/dL (7-18); CALCIUM 8.5 MG/DL (8.5-10.1); CARBON DIOXIDE 20 MMOL/L (21-32); CHLORIDE 94 MMOL/L (98-107); CREATININE 11.4 MG/DL (0.55-1.30); PHOSPHORUS 8.8 MG/DL (2.5-4.9); POTASSIUM 4.4 MMOL/L (3.5-5.1); SODIUM 138 MMOL/L (136-145)
--- NOTE | 2018-11-27 07:26 | NUR ---
HAND-OFF: Report given to KALEIGH Romero.
[2018-11-27 08:00] VITALS: BP_SYST 107; BP_SYST 116; BP_DIAS 55; BP_DIAS 59
--- NOTE | 2018-11-27 09:00 | Consultation ---
DATE OF CONSULTATION: 11/27/2018 ENDOCRINOLOGY CONSULTATION CONSULTING PHYSICIAN: Kaiser Alvarado M.D. REFERRING PHYSICIAN: Luis Miguel Donohue M.D. REASON FOR CONSULTATION: Hypoglycemia. HISTORY OF PRESENT ILLNESS: The patient is a 68-year-old male with a history of diabetes, on insulin as an outpatient as well as end-stage renal disease, on hemodialysis, who presented to the hospital with altered mental status. He was hypoglycemic, was treated with glucose load and admitted to the floor for observation and treatment. PAST MEDICAL HISTORY: 1. Diabetes. 2. Hypertension. 3. Coronary artery disease. 4. Atrial fibrillation. 5. End-stage renal disease on Saturday, , and Saturday. MEDICATIONS: Reviewed and reconciled. For diabetes, he is on Lantus 35 units b.i.d. REVIEW OF SYSTEMS: As per HPI. ALLERGIES TO MEDICATIONS: None. FAMILY HISTORY: Noncontributory. SOCIAL HISTORY: No smoking, alcohol, or drug use. LABORATORY VALUES: WBC 8, hemoglobin 14, hematocrit 46, and platelet count 160. Sodium 137, potassium 5.4, chloride 94, bicarb 22, BUN 82, creatinine 9.2, hemoglobin A1c of 10. Troponin 0.07. BNP 22,171. TSH 1.4. PHYSICAL EXAMINATION: GENERAL: He is awake and alert. VITAL SIGNS: Blood pressure is 143/76, pulse 83, temperature 97.8, and respiratory rate 19. HEENT: Pupils are equal and reactive to light. Sclerae anicteric. NECK: No JVD. HEART: Irregular. LUNGS: Clear. ABDOMEN: Positive bowel sounds. EXTREMITIES: Positive for edema. DIAGNOSES: 1. Hypoglycemia secondary to Lantus. 2. Diabetes, out of control. 3. End-stage renal disease, on hemodialysis. 4. CHF. PLAN: 1. Discontinue basal insulin. 2. Start blood glucose monitoring before meals and at bedtime. 3. Once the glucose start rising, we will start scheduled insulin. 4. I will follow the patient closely during hospital stay. Thank you, Dr. Donohue, for the courtesy of this consultation. Kaiser Alvarado M.D. DR: RN/YANNI JOB#: [id number] CC: [place]
[2018-11-27] MEDS: ARIPiprazole 10mg tab ORAL SCH (09:34)
[2018-11-27] MEDS: Heparin 5000 units/ml inj SUBQ SCH ×2 (09:36→22:07)
--- NOTE | 2018-11-27 10:26 | NUR ---
NURSE NOTES: Received pt. from KALEIGH Agarwal. Observed pt. resting in bed and watching TV. Pt. is A/Ox3. regulator assembler is in placed, IV site is intact, asymptomatic and patent. Bed is in the lowest position, x2 side rail up and locked, and call light is within reach. No acute distress noted at this time and patient denies pain. Will continue plan of care. @8:15am Patient had 1 bowel movement and linen changed. @8:30am: Dressing noted small serous exudate. Dressing was changed.
--- NOTE | 2018-11-27 11:53 | Pulmonology Progress Note ---
Assessment/Plan Problems: (1) Acute metabolic encephalopathy (2) Hypoglycemia (3) ESRF (end stage renal failure) (4) COPD (chronic obstructive pulmonary disease) (5) Diabetes Assessment/Plan mental status better continue telemetry neuro evaluation Nephrology for HD symptomatic treatment check electrolytes PT/ot evaluation social service consult for home safety Subjective ROS Limited/Unobtainable: No Constitutional: Reports: no symptoms HEENT: Repors: no symptoms Respiratory: Reports: no symptoms Allergies: Coded Allergies: No Known Allergies (Verified , 07/21/11) Objective Last 24 Hour Vital Signs Date Time Temp Pulse Resp B/P (MAP) Pulse Ox O2 Delivery O2 Flow Rate FiO2 11/27/18 09:00 Room Air 11/27/18 08:00 97.9 90 16 107/59 (75) 96 11/27/18 07:50 87 11/27/18 06:06 120/66 11/27/18 04:00 79 11/27/18 04:00 98.1 72 19 143/76 (98) 97 11/27/18 00:00 98.5 88 18 125/74 (91) 95 11/27/18 00:00 91 11/26/18 21:39 139/95 11/26/18 21:00 Room Air 11/26/18 20:00 98.1 83 19 139/95 (110) 93 11/26/18 19:35 82 11/26/18 16:00 76 11/26/18 15:54 97.7 84 18 101/71 (81) 97 93 11/26/18 15:09 102 11/26/18 14:21 114/55 11/26/18 13:41 114/55 11/26/18 12:00 97.9 93 20 138/85 (102) 98 11/26/18 12:00 88 Intake and Output 11/26/18 11/27/18 19:00 07:00 Intake Total 360 ml Output Total 600 ml Balance 360 ml -600 ml Intake Oral 360 ml Output Urine Total 600 ml # Bowel Movements 3 General Appearance: WD/WN HEENT: normocephalic Respiratory/Chest: chest wall non-tender, lungs clear Cardiovascular: normal peripheral pulses, normal rate Abdomen: normal bowel sounds, soft, non tender Genitourinary: normal external genitalia Neurologic/Psychiatric: apparel stock checker II-XII grossly normal Microbiology Date/Time Source Procedure Growth Status 2/12/19 12:10 Blood Blood Culture - Preliminary Staphylococcus Species Resulted 11/25/18 11:50 Blood Blood Culture - Preliminary Staphylococcus Species Resulted 11/25/18 10:00 Rectum VRE Culture - Final NO VANCOMYCIN RESISTANT ENTEROCOCCUS ... Complete 11/25/18 10:00 Rectum - Final NO CARBAPENEM-RESISTANT ENTEROBACTERI... Complete Laboratory Tests 11/26/18 12:40: Troponin I 0.065H 11/27/18 04:55: Troponin I 0.077H, White Blood Count 6.0, Red Blood Count 4.17L, Hemoglobin 13.5L, Hematocrit 41.5L, Mean Corpuscular Volume 99, Mean Corpuscular Hemoglobin 32.4H, Mean Corpuscular Hemoglobin Concent 32.5, Red Cell Distribution Width 15.5H, Platelet Count 149L, Mean Platelet Volume 7.9, Neutrophils (%) (Auto) 64.8, Lymphocytes (%) (Auto) 19.2L, Monocytes (%) (Auto) 10.5H, Eosinophils (%) (Auto) 4.2H, Basophils (%) (Auto) 1.3, Sodium Level 138, Potassium Level 4.4, Chloride Level 94L, Carbon Dioxide Level 20L, Anion Gap 24H , Blood Urea Nitrogen 91H, Creatinine 11.4H, Estimat Glomerular Filtration Rate 5.5, Glucose Level 92, Uric Acid 7.6H, Calcium Level 8.5, Phosphorus Level 8.8H , Total Bilirubin 0.7, Aspartate Amino Transf (AST/SGOT) 29, Alanine Aminotransferase (ALT/SGPT) 31, Alkaline Phosphatase 88, Pro-B-Type Natriuretic Peptide 64143T, Total Protein 7.4, Albumin 3.5, Globulin 3.9, Albumin/Globulin Ratio 0.9L, Digoxin Level 0.6 Current Medications Medications (Trade) Dose Ordered Sig/Divya Route PRN Reason Start Time Stop Time Status Last Admin Dose Admin Acetaminophen (Tylenol) 650 mg Q4H PRN ORAL Fever (temp>100.5F) 11/25/18 11:30 12/25/18 11:29 Albuterol/ Ipratropium (Albuterol/ Ipratropium) 3 ml Q4H PRN HHN Shortness of Breath 11/25/18 11:30 11/30/18 11:29 Aripiprazole (Abilify) 10 mg DAILY ORAL 11/26/18 09:00 12/26/18 08:59 11/27/18 09:34 Chlorhexidine Gluconate (Pia-Hex 2%) 1 applic DAILY@2000 TOPIC 11/25/18 20:00 12/25/18 19:59 11/26/18 20:06 Dextrose (Dextrose 50%) 25 ml Q30M PRN IV Hypoglycemia 11/27/18 06:30 12/27/18 06:29 Dextrose (Dextrose 50%) 50 ml Q30M PRN IV Hypoglycemia 11/27/18 06:30 12/27/18 06:29 Heparin Sodium (Porcine) (Heparin 5000 units/ml) 5,000 units EVERY 12 HOURS SUBQ 11/25/18 21:00 12/25/18 20:59 11/27/18 09:36 Hydralazine HCl (Apresoline) 10 mg Q8HR ORAL 11/26/18 22:00 12/26/18 13:59 11/27/18 06:06 Insulin Aspart (NovoLOG) BEFORE MEALS AND HS SUBQ 11/27/18 06:30 12/27/18 06:29 Nitroglycerin (Ntg) 1 patch Q24H TDERMAL 11/25/18 15:00 12/25/18 14:59 11/26/18 14:21 Ondansetron HCl (Zofran) 4 mg Q6H PRN IVP Nausea & Vomiting 11/25/18 11:30 12/25/18 11:29 Pantoprazole (Protonix) 40 mg EVERY 12 HOURS ORAL 11/26/18 21:00 12/26/18 20:59 11/27/18 09:34 Polyethylene Glycol (Miralax) 17 gm DAILYPRN PRN ORAL Constipation 11/25/18 11:30 12/25/18 11:29 Temazepam (Restoril) 15 mg HSPRN PRN ORAL Insomnia 11/25/18 11:30 12/02/18 11:29 Luis Miguel Donohue MD Nov 27, 2018 11:53
--- NOTE | 2018-11-27 11:58 | General Progress Note ---
Assessment/Plan Problem List: (1) Acute metabolic encephalopathy ICD Codes: G93.41 - Metabolic encephalopathy SNOMED: 98392415, 888886656 (2) MDD (major depressive disorder), recurrent episode, moderate ICD Codes: F33.1 - Major depressive disorder, recurrent, moderate SNOMED: 21044753, 548941780 (3) Anxiety disorder ICD Codes: F41.9 - Anxiety disorder, unspecified SNOMED: 659715820 Status: stable, progressing Assessment/Plan Abilify 10mg po qam Zoloft 25mg qam provide ro/st. Subjective Neurologic/Psychiatric: Reports: anxiety, depressed Allergies: Coded Allergies: No Known Allergies (Verified , 07/21/11) Subjective the pt is doing better and is more alert nad no agitation Objective Last 24 Hour Vital Signs Date Time Temp Pulse Resp B/P (MAP) Pulse Ox O2 Delivery O2 Flow Rate FiO2 11/27/18 09:00 Room Air 11/27/18 08:00 97.9 90 16 107/59 (75) 96 11/27/18 07:50 87 11/27/18 06:06 120/66 11/27/18 04:00 79 11/27/18 04:00 98.1 72 19 143/76 (98) 97 11/27/18 00:00 98.5 88 18 125/74 (91) 95 11/27/18 00:00 91 11/26/18 21:39 139/95 11/26/18 21:00 Room Air 11/26/18 20:00 98.1 83 19 139/95 (110) 93 11/26/18 19:35 82 11/26/18 16:00 76 11/26/18 15:54 97.7 84 18 101/71 (81) 97 93 11/26/18 15:09 102 11/26/18 14:21 114/55 11/26/18 13:41 114/55 11/26/18 12:00 97.9 93 20 138/85 (102) 98 11/26/18 12:00 88 Intake and Output 11/26/18 11/27/18 19:00 07:00 Intake Total 360 ml Output Total 600 ml Balance 360 ml -600 ml Intake Oral 360 ml Output Urine Total 600 ml # Bowel Movements 3 Laboratory Tests 11/26/18 12:40: Troponin I 0.065H 11/27/18 04:55: Troponin I 0.077H, White Blood Count 6.0, Red Blood Count 4.17L, Hemoglobin 13.5L, Hematocrit 41.5L, Mean Corpuscular Volume 99, Mean Corpuscular Hemoglobin 32.4H, Mean Corpuscular Hemoglobin Concent 32.5, Red Cell Distribution Width 15.5H, Platelet Count 149L, Mean Platelet Volume 7.9, Neutrophils (%) (Auto) 64.8, Lymphocytes (%) (Auto) 19.2L, Monocytes (%) (Auto) 10.5H, Eosinophils (%) (Auto) 4.2H, Basophils (%) (Auto) 1.3, Sodium Level 138, Potassium Level 4.4, Chloride Level 94L, Carbon Dioxide Level 20L, Anion Gap 24H , Blood Urea Nitrogen 91H, Creatinine 11.4H, Estimat Glomerular Filtration Rate 5.5, Glucose Level 92, Uric Acid 7.6H, Calcium Level 8.5, Phosphorus Level 8.8H , Total Bilirubin 0.7, Aspartate Amino Transf (AST/SGOT) 29, Alanine Aminotransferase (ALT/SGPT) 31, Alkaline Phosphatase 88, Pro-B-Type Natriuretic Peptide 34030K, Total Protein 7.4, Albumin 3.5, Globulin 3.9, Albumin/Globulin Ratio 0.9L, Digoxin Level 0.6 Height (Feet): 5 Height (Inches): 10.00 Weight (Pounds): 248 General Appearance: no apparent distress, alert Neurologic: oriented x 3, responsive, normal mood/affect Glenda Rene MD Nov 27, 2018 11:58
[2018-11-27 12:00] VITALS: BP 125/63
--- NOTE | 2018-11-27 13:22 | Nephrology Progress Note ---
Assessment/Plan Problem List: (1) ESRF (end stage renal failure) (2) Acute metabolic encephalopathy (3) Cardiomyopathy (4) Elevated troponin I level Assessment ESRD, Presents with ALOC and High K Encephalopathy DM HTN Atrial Fib Flutter elevated Troponin I Plan HD today , adjust BP meds kayexelate as needed Keep BP and BS under control Nitro dermal echo: global hypokinesis phos binder monitor dig level Subjective ROS Limited/Unobtainable: No Constitutional: Reports: malaise Objective Objective Last 24 Hour Vital Signs Date Time Temp Pulse Resp B/P (MAP) Pulse Ox O2 Delivery O2 Flow Rate FiO2 11/27/18 12:00 98.0 84 16 125/63 (83) 96 11/27/18 11:40 73 11/27/18 09:00 Room Air 11/27/18 08:00 97.9 90 16 107/59 (75) 96 11/27/18 07:50 87 11/27/18 06:06 120/66 11/27/18 04:00 79 11/27/18 04:00 98.1 72 19 143/76 (98) 97 11/27/18 00:00 98.5 88 18 125/74 (91) 95 11/27/18 00:00 91 11/26/18 21:39 139/95 11/26/18 21:00 Room Air 11/26/18 20:00 98.1 83 19 139/95 (110) 93 11/26/18 19:35 82 11/26/18 16:00 76 11/26/18 15:54 97.7 84 18 101/71 (81) 97 93 11/26/18 15:09 102 11/26/18 14:21 114/55 11/26/18 13:41 114/55 Intake and Output 11/26/18 11/27/18 19:00 07:00 Intake Total 360 ml Output Total 600 ml Balance 360 ml -600 ml Intake Oral 360 ml Output Urine Total 600 ml # Bowel Movements 3 Laboratory Tests 11/27/18 04:55: White Blood Count 6.0, Red Blood Count 4.17L, Hemoglobin 13.5L, Hematocrit 41.5L , Mean Corpuscular Volume 99, Mean Corpuscular Hemoglobin 32.4H, Mean Corpuscular Hemoglobin Concent 32.5, Red Cell Distribution Width 15.5H, Platelet Count 149L, Mean Platelet Volume 7.9, Neutrophils (%) (Auto) 64.8, Lymphocytes (%) (Auto) 19.2L, Monocytes (%) (Auto) 10.5H, Eosinophils (%) (Auto ) 4.2H, Basophils (%) (Auto) 1.3, Sodium Level 138, Potassium Level 4.4, Chloride Level 94L, Carbon Dioxide Level 20L, Anion Gap 24H, Blood Urea Nitrogen 91H, Creatinine 11.4H, Estimat Glomerular Filtration Rate 5.5, Glucose Level 92, Uric Acid 7.6H, Calcium Level 8.5, Phosphorus Level 8.8H, Total Bilirubin 0.7, Aspartate Amino Transf (AST/SGOT) 29, Alanine Aminotransferase ( ALT/SGPT) 31, Alkaline Phosphatase 88, Troponin I 0.077H, Pro-B-Type Natriuretic Peptide 22537Z, Total Protein 7.4, Albumin 3.5, Globulin 3.9, Albumin/Globulin Ratio 0.9L, Digoxin Level 0.6 Height (Feet): 5 Height (Inches): 10.00 Weight (Pounds): 248 General Appearance: no apparent distress Cardiovascular: arrhythmia Respiratory/Chest: decreased breath sounds Abdomen: distended Objective no change Francisco Javier Abraham MD Nov 27, 2018 13:22
[2018-11-27] MEDS: Aspirin Baby 81mg ORAL SCH (13:36)
[2018-11-27] MEDS ORDERED: Nitroglycerin Patch 0.4mg TDERMAL SCH (14:00)
[2018-11-27] MEDS: Nitroglycerin Patch 0.4mg TDERMAL SCH (15:00)
[2018-11-27 16:00] VITALS: BP 123/63
--- NOTE | 2018-11-27 17:41 | NUR ---
Social Service Note SW met with patient to assess for home safety. Patient is alert, oriented and verbally responsive. Patient states he lives at home with his Ryan Kaba. Patient states he uses a FWW however has had recent falls at home and states his knees have buckled. Patient receives dialysis T TH Sat but cannot recall which dialysis unit he goes too. Patient states he is seen at his PMD office once a month for blood draws. Patient believes his is his [facility] provider and thinks a nurse visits him from a company. Message left for patient's Ryan [phone] for clarity of home care. patient prefers to go home upon discharge. Will monitor and follow up.
[2018-11-27] MEDS: Docusate 100mg cap ORAL SCH (18:00)
--- NOTE | 2018-11-27 19:20 | NUR ---
HAND-OFF: Report given to KALEIGH Miller.
--- NOTE | 2018-11-27 19:41 | NUR ---
NURSE NOTES: RECEIVED PATIENT RESTING IN BED, NO COMPLAINTS OF PAIN AT THIS TIME. FALL AND ASPIRATION PRECAUTIONS IN PLACE: CALL LIGHT AND BEDSIDE TABLE WITHIN REACH, BED IN LOW POSITION AND BED ALARM ON, HOB ELEVATED 30 DEGREES. PLAN OF CARE REVIEWED.
[2018-11-27 20:00] VITALS: BP 110/68
--- NOTE | 2018-11-27 21:24 | Cardiology Progress Note ---
Assessment/Plan Assessment/Plan (1) acute chf (2) Atrial fibrillation with RVR (3) Anemia (4) Pulmonary hypertension (5) COPD (chronic obstructive pulmonary disease) (6) Hypoxemia 7. abn trop like related to ernal insuf seems to be oka t the momoent dialysis follwo ekg may need acie once stable on dialysis [id number] Subjective Cardiovascular: Denies: chest pain, lightheadedness, palpitations Respiratory: Denies: shortness of breath Gastrointestinal/Abdominal: Denies: abdominal pain Genitourinary: Denies: burning Objective Last 24 Hour Vital Signs Date Time Temp Pulse Resp B/P (MAP) Pulse Ox O2 Delivery O2 Flow Rate FiO2 11/27/18 16:00 97.9 82 16 123/63 (83) 95 11/27/18 15:35 78 11/27/18 15:00 125/63 11/27/18 13:37 84 11/27/18 13:37 125/63 11/27/18 12:00 98.0 84 16 125/63 (83) 96 11/27/18 11:40 73 11/27/18 09:00 Room Air 11/27/18 08:00 97.9 90 16 107/59 (75) 96 11/27/18 07:50 87 11/27/18 06:06 120/66 11/27/18 04:00 79 11/27/18 04:00 98.1 72 19 143/76 (98) 97 11/27/18 00:00 98.5 88 18 125/74 (91) 95 11/27/18 00:00 91 11/26/18 21:39 139/95 General Appearance: no apparent distress, alert, obese Neck: supple Cardiovascular: irregularly irregular Respiratory/Chest: crackles/rales Abdomen: normal bowel sounds, non tender, soft Extremities: non-tender, trace edema Intake and Output 11/26/18 11/27/18 19:00 07:00 Intake Total 360 ml Output Total 600 ml Balance 360 ml -600 ml Intake Oral 360 ml Output Urine Total 600 ml # Bowel Movements 3 Laboratory Tests Test 11/27/18 04:55 White Blood Count 6.0 K/UL (4.8-10.8) Red Blood Count 4.17 M/UL (4.70-6.10) L Hemoglobin 13.5 G/DL (14.2-18.0) L Hematocrit 41.5 % (42.0-52.0) L Mean Corpuscular Volume 99 FL (80-99) Mean Corpuscular Hemoglobin 32.4 PG (27.0-31.0) H Mean Corpuscular Hemoglobin Concent 32.5 G/DL (32.0-36.0) Red Cell Distribution Width 15.5 % (11.6-14.8) H Platelet Count 149 K/UL (150-450) L Mean Platelet Volume 7.9 FL (6.5-10.1) Neutrophils (%) (Auto) 64.8 % (45.0-75.0) Lymphocytes (%) (Auto) 19.2 % (20.0-45.0) L Monocytes (%) (Auto) 10.5 % (1.0-10.0) H Eosinophils (%) (Auto) 4.2 % (0.0-3.0) H Basophils (%) (Auto) 1.3 % (0.0-2.0) Sodium Level 138 MMOL/L (136-145) Potassium Level 4.4 MMOL/L (3.5-5.1) Chloride Level 94 MMOL/L (98-107) L Carbon Dioxide Level 20 MMOL/L (21-32) L Anion Gap 24 mmol/L (5-15) H Blood Urea Nitrogen 91 mg/dL (7-18) H Creatinine 11.4 MG/DL (0.55-1.30) H Estimat Glomerular Filtration Rate 5.5 mL/min (>60) Glucose Level 92 MG/DL (74-106) Uric Acid 7.6 MG/DL (2.6-7.2) H Calcium Level 8.5 MG/DL (8.5-10.1) Phosphorus Level 8.8 MG/DL (2.5-4.9) H Total Bilirubin 0.7 MG/DL (0.2-1.0) Aspartate Amino Transf (AST/SGOT) 29 U/L (15-37) Alanine Aminotransferase (ALT/SGPT) 31 U/L (12-78) Alkaline Phosphatase 88 U/L (46-116) Troponin I 0.077 ng/mL (0.000-0.056) Pro-B-Type Natriuretic Peptide 83863 pg/mL (0-125) H Total Protein 7.4 G/DL (6.4-8.2) Albumin 3.5 G/DL (3.4-5.0) Globulin 3.9 g/dL Albumin/Globulin Ratio 0.9 (1.0-2.7) L Digoxin Level 0.6 NG/ML (0.5-2.0) Microbiology Date/Time Source Procedure Growth Status 11/25/18 12:10 Blood Blood Culture - Preliminary Staphylococcus Species Resulted 11/25/18 11:50 Blood Blood Culture - Preliminary Staphylococcus Species Resulted 11/25/18 10:00 Nasal Nares MRSA Culture - Final NO METHICILLIN RESISTANT STAPH AUREUS... Complete 11/25/18 10:00 Rectum VRE Culture - Final NO VANCOMYCIN RESISTANT ENTEROCOCCUS ... Complete 11/25/18 10:00 Rectum - Final NO CARBAPENEM-RESISTANT ENTEROBACTERI... Complete Preston Perla MD Nov 27, 2018 21:24
[2018-11-27] MEDS: Dyna-Hex 2% Top Sol 2oz TOPIC SCH (22:10)
[2018-11-28] VITALS: BP 126/76
[2018-11-28 04:00] VITALS: BP 115/73
--- NOTE | 2018-11-28 05:15 | Consultation ---
DATE OF CONSULTATION: 11/27/2018 NOTE: INAUDIBLE DICTATION NEUROLOGIC CONSULTATION CONSULTING PHYSICIAN: Gustavo Torres M.D. CHIEF COMPLAINT: This 68-year-old right-handed man with end-stage renal disease, AODM type 2 for years, hypertension, atrial fibrillation, and coronary artery disease. He has also had a stroke in the past, but cannot give a history. The patient was brought to the hospital because he was difficult to arouse. The patient has end-stage renal disease, on hemodialysis. He gets dialysis on Tuesdays, , and Saturdays. He was brought into the emergency room on 11/25/2018. He was confused. He was found to be hypoglycemic. He was given sugar by mouth and did improve. He was given a dose of glucagon by the time he was admitted to telemetry. The patient is blind in the left eye and had a stroke, but cannot tell me exactly when it occurred. There is no family history of neurologic disease. ALLERGIES: No known allergies. PAST MEDICAL HISTORY: PAST MEDICAL ILLNESSES: 1. Gout. On allopurinol 100 mg twice a day. 2. Hypertension. On losartan , , Cozaar and , metoprolol succinate, . . 3. Hyperlipidemia. He is now on atorvastatin. . 4. . FAMILY HISTORY: Unavailable. REVIEW OF SYSTEMS: Unavailable. PHYSICAL EXAMINATION: GENERAL: He is an obese man . VITAL SIGNS: Blood pressure 175/63, respiratory rate and pulse rate of 84. NECK: It is nontender . LUNGS: Clear to auscultation with an occasional wheeze. CARDIOVASCULAR: . ABDOMEN: Mildly obese. Bowel sounds . EXTREMITIES: . in the right upper hand. . NEUROLOGIC: . CRANIAL NERVE EXAMINATION: . IMPRESSION: . renal failure, on hemodialysis, diabetes, . decreased mental status and troponins are a bit high. . Renal failure is also contributing to his altered mental status . contrast CT scan of the brain. It should be CT scan of the brain . Gustavo Torres MD DR: MARRY JOB#: [id number] CC:
[2018-11-28] MEDS: NovoLOG Insulin Flexpen SUBQ SCH ×4 (06:10→21:58)
[2018-11-28] MEDS: HydrALAZINE 10mg Tab ORAL SCH ×3 (06:18→21:26)
--- NOTE | 2018-11-28 06:50 | General Progress Note ---
Assessment/Plan Problem List: (1) Diabetes ICD Codes: E11.9 - Diabetes SNOMED: 94420475 (2) Acute metabolic encephalopathy ICD Codes: G93.41 - Metabolic encephalopathy SNOMED: 45059893, 016194547 (3) Hypoglycemia ICD Codes: E16.2 - Hypoglycemia, unspecified SNOMED: 564843411 (4) COPD (chronic obstructive pulmonary disease) ICD Codes: J44.9 - COPD (chronic obstructive pulmonary disease) SNOMED: 03871551 (5) ESRF (end stage renal failure) ICD Codes: N18.6 - End stage renal disease SNOMED: 01721119 Assessment/Plan no need for basal insulin since glucose values are not elevated continue Novolog sliding scale ac / hs Subjective Allergies: Coded Allergies: No Known Allergies (Verified , 07/21/11) All Systems: reviewed and negative except above Subjective events noted glucose values are stable without hypoglycemia without basal insulin Item Value Date Time Bedside Blood Glucose 148 mg/dl H 11/28/18 0610 Bedside Blood Glucose 158 mg/dl H 11/27/18 2206 Bedside Blood Glucose 104 mg/dl 11/27/18 1630 Bedside Blood Glucose 124 mg/dl H 11/27/18 1226 Bedside Blood Glucose 94 mg/dl 11/27/18 0642 Objective Last 24 Hour Vital Signs Date Time Temp Pulse Resp B/P (MAP) Pulse Ox O2 Delivery O2 Flow Rate FiO2 11/28/18 06:18 140/89 11/28/18 04:00 81 11/28/18 04:00 98.0 88 18 115/73 (87) 97 11/28/18 00:00 97.9 77 19 126/76 (93) 98 11/28/18 00:00 79 11/27/18 22:00 110/68 11/27/18 21:00 Room Air 11/27/18 20:00 100 11/27/18 20:00 98.1 96 19 110/68 (82) 96 11/27/18 16:00 97.9 82 16 123/63 (83) 95 11/27/18 15:35 78 11/27/18 15:00 125/63 11/27/18 13:37 84 11/27/18 13:37 125/63 11/27/18 12:00 98.0 84 16 125/63 (83) 96 11/27/18 11:40 73 11/27/18 09:00 Room Air 11/27/18 08:00 97.9 90 16 107/59 (75) 96 11/27/18 07:50 87 Intake and Output 11/27/18 11/28/18 19:00 07:00 Intake Total 480 ml 240 ml Output Total 400 ml Balance 80 ml 240 ml Intake Oral 480 ml 240 ml Output Urine Total 400 ml # Voids 1 # Bowel Movements 1 2 Height (Feet): 5 Height (Inches): 10.00 Weight (Pounds): 245 General Appearance: no apparent distress Neck: normal alignment Cardiovascular: normal rate Respiratory/Chest: lungs clear Abdomen: normal bowel sounds Objective Current Medications Medications (Trade) Dose Ordered Sig/Divya Route PRN Reason Start Time Stop Time Status Last Admin Dose Admin Acetaminophen (Tylenol) 650 mg Q4H PRN ORAL Fever (temp>100.5F) 11/25/18 11:30 12/25/18 11:29 Albuterol/ Ipratropium (Albuterol/ Ipratropium) 3 ml Q4H PRN HHN Shortness of Breath 11/25/18 11:30 11/30/18 11:29 Aripiprazole (Abilify) 10 mg DAILY ORAL 11/26/18 09:00 12/26/18 08:59 11/27/18 09:34 Aspirin (ASA) 81 mg DAILY ORAL 11/27/18 13:30 12/27/18 13:29 11/27/18 13:36 Chlorhexidine Gluconate (Pia-Hex 2%) 1 applic DAILY@2000 TOPIC 11/25/18 20:00 12/25/18 19:59 11/27/18 22:10 Dextrose (Dextrose 50%) 25 ml Q30M PRN IV Hypoglycemia 11/27/18 06:30 12/27/18 06:29 Dextrose (Dextrose 50%) 50 ml Q30M PRN IV Hypoglycemia 11/27/18 06:30 12/27/18 06:29 Digoxin (Lanoxin) 0.25 mg DAILY ORAL 11/28/18 09:00 12/28/18 08:59 Docusate Sodium (Colace) 100 mg THREE TIMES A DAY ORAL 11/27/18 18:00 12/27/18 17:59 Heparin Sodium (Porcine) (Heparin 5000 units/ml) 5,000 units EVERY 12 HOURS SUBQ 2/12/19 21:00 12/25/18 20:59 11/27/18 22:07 Hydralazine HCl (Apresoline) 10 mg Q8HR ORAL 11/26/18 22:00 12/26/18 13:59 11/28/18 06:18 Insulin Aspart (NovoLOG) BEFORE MEALS AND HS SUBQ 11/27/18 06:30 12/27/18 06:29 11/28/18 06:10 Nitroglycerin (Ntg) 1 patch Q24H TDERMAL 11/25/18 15:00 12/25/18 14:59 11/26/18 14:21 Ondansetron HCl (Zofran) 4 mg Q6H PRN IVP Nausea & Vomiting 11/25/18 11:30 12/25/18 11:29 Pantoprazole (Protonix) 40 mg EVERY 12 HOURS ORAL 11/26/18 21:00 12/26/18 20:59 11/27/18 22:05 Polyethylene Glycol (Miralax) 17 gm DAILYPRN PRN ORAL Constipation 11/25/18 11:30 12/25/18 11:29 Sevelamer Carbonate (Renvela) 2,400 mg THREE TIMES A DAY ORAL 11/27/18 18:00 12/27/18 17:59 Temazepam (Restoril) 15 mg HSPRN PRN ORAL Insomnia 11/25/18 11:30 12/02/18 11:29 Kaiser Alvarado MD Nov 28, 2018 06:50
--- NOTE | 2018-11-28 07:15 | NUR ---
HAND-OFF: Report given to KALEIGH MANDUJANO. PATIENT RESTING IN BED, NO SIGNS OF DISTRESS NOTED.
[2018-11-28 07:52] LABS: ALANINE AMINOTRANSFERASE 29 U/L (12-78); ALBUMIN 3.4 G/DL (3.4-5.0); ALBUMIN/GLOBULIN RATIO 0.8 (1.0-2.7); ALKALINE PHOSPHATASE 89 U/L (46-116); ANION GAP 18 mmol/L (5-15); ASPARTATE AMINO TRANSFERASE 41 U/L (15-37); BILIRUBIN,TOTAL 0.4 MG/DL (0.2-1.0); BLOOD UREA NITROGEN 61 mg/dL (7-18); CALCIUM 8.1 MG/DL (8.5-10.1); CARBON DIOXIDE 26 MMOL/L (21-32); CHLORIDE 94 MMOL/L (98-107); CREATININE 9.8 MG/DL (0.55-1.30); POTASSIUM 3.6 MMOL/L (3.5-5.1); SODIUM 138 MMOL/L (136-145)
[2018-11-28 08:00] VITALS: BP 124/72
[2018-11-28 08:04] LABS: BASOPHILS % (AUTO) 1.6 % (0.0-2.0); EOSINOPHILS % (AUTO) 2.4 % (0.0-3.0); HEMOGLOBIN 13.8 G/DL (14.2-18.0); LYMPHOCYTES % (AUTO) 14.6 % (20.0-45.0); MEAN CORPUSCULAR VOLUME 101 FL (80-99); NEUTROPHILS % (AUTO) 69.4 % (45.0-75.0); PLATELET COUNT 122 K/UL (150-450); RED BLOOD COUNT 4.18 M/UL (4.70-6.10); RED CELL DISTRIBUTION WIDTH 15.5 % (11.6-14.8)
[2018-11-28 08:11] LABS: PHOSPHORUS 8.6 MG/DL (2.5-4.9)
[2018-11-28] MEDS: ARIPiprazole 10mg tab ORAL SCH (09:44)
[2018-11-28] MEDS: Docusate 100mg cap ORAL SCH ×3 (09:44→17:12)
[2018-11-28] MEDS: Aspirin Baby 81mg ORAL SCH (09:45)
[2018-11-28] MEDS: Heparin 5000 units/ml inj SUBQ SCH ×2 (09:47→21:30)
--- NOTE | 2018-11-28 11:09 | NUR ---
NURSE NOTES: Spoke to Dr. Torres to clarify cT head order. States no contrast. Relayed to line service technician.
--- NOTE | 2018-11-28 11:13 | NUR ---
HAND-OFF: Report given to spoke with Nick from [facility] for HD for 11/29/18.
[2018-11-28 12:00] VITALS: BP 131/68
--- NOTE | 2018-11-28 12:08 | Pulmonology Progress Note ---
Assessment/Plan Problems: (1) Acute metabolic encephalopathy (2) Hypoglycemia (3) ESRF (end stage renal failure) (4) COPD (chronic obstructive pulmonary disease) (5) Diabetes Assessment/Plan sitting up in the chair mental status better continue telemetry neuro evaluation Nephrology for HD symptomatic treatment check electrolytes PT/ot evaluation social service consult for home safety Subjective ROS Limited/Unobtainable: No Constitutional: Reports: no symptoms HEENT: Repors: no symptoms Allergies: Coded Allergies: No Known Allergies (Verified , 07/21/11) Objective Last 24 Hour Vital Signs Date Time Temp Pulse Resp B/P (MAP) Pulse Ox O2 Delivery O2 Flow Rate FiO2 11/28/18 09:45 80 11/28/18 09:00 Room Air 11/28/18 08:00 80 11/28/18 08:00 97.5 80 20 124/72 (89) 100 11/28/18 06:18 140/89 11/28/18 04:00 81 11/28/18 04:00 98.0 88 18 115/73 (87) 97 11/28/18 00:00 97.9 77 19 126/76 (93) 98 11/28/18 00:00 79 11/27/18 22:00 110/68 11/27/18 21:00 Room Air 11/27/18 20:00 100 11/27/18 20:00 98.1 96 19 110/68 (82) 96 11/27/18 16:00 97.9 82 16 123/63 (83) 95 11/27/18 15:35 78 11/27/18 15:00 125/63 11/27/18 13:37 84 11/27/18 13:37 125/63 Intake and Output 11/27/18 11/28/18 18:59 06:59 Intake Total 480 ml 240 ml Output Total 400 ml Balance 80 ml 240 ml Intake Oral 480 ml 240 ml Output Urine Total 400 ml # Voids 1 # Bowel Movements 1 2 General Appearance: WD/WN HEENT: normocephalic Respiratory/Chest: chest wall non-tender, lungs clear Cardiovascular: normal peripheral pulses, normal rate Abdomen: normal bowel sounds, soft, non tender Genitourinary: normal external genitalia Neurologic/Psychiatric: no motor/sensory deficits, normal mood/affect Microbiology Date/Time Source Procedure Growth Status 11/25/18 12:10 Blood Blood Culture - Final Staphylococcus Epidermidis Complete Laboratory Tests 11/28/18 06:43: White Blood Count 6.0, Red Blood Count 4.18L, Hemoglobin 13.8L, Hematocrit 42.0 , Mean Corpuscular Volume 101H, Mean Corpuscular Hemoglobin 33.0H, Mean Corpuscular Hemoglobin Concent 32.8, Red Cell Distribution Width 15.5H, Platelet Count 122L, Mean Platelet Volume 7.4, Neutrophils (%) (Auto) 69.4, Lymphocytes (%) (Auto) 14.6L, Monocytes (%) (Auto) 12.0H, Eosinophils (%) (Auto ) 2.4, Basophils (%) (Auto) 1.6, Sodium Level 138, Potassium Level 3.6, Chloride Level 94L, Carbon Dioxide Level 26, Anion Gap 18H, Blood Urea Nitrogen 61H, Creatinine 9.8H, Estimat Glomerular Filtration Rate 6.4, Glucose Level 161H , Uric Acid 5.9, Calcium Level 8.1L, Phosphorus Level 8.6H, Magnesium Level 2.3 , Total Bilirubin 0.4, Aspartate Amino Transf (AST/SGOT) 41H, Alanine Aminotransferase (ALT/SGPT) 29, Alkaline Phosphatase 89, C-Reactive Protein, Quantitative 3.1H, Pro-B-Type Natriuretic Peptide 13482L, Total Protein 7.6, Albumin 3.4, Globulin 4.2, Albumin/Globulin Ratio 0.8L, Digoxin Level 0.8 Current Medications Medications (Trade) Dose Ordered Sig/Divya Route PRN Reason Start Time Stop Time Status Last Admin Dose Admin Acetaminophen (Tylenol) 650 mg Q4H PRN ORAL Fever (temp>100.5F) 11/25/18 11:30 12/25/18 11:29 Albuterol/ Ipratropium (Albuterol/ Ipratropium) 3 ml Q4H PRN HHN Shortness of Breath 11/25/18 11:30 11/30/18 11:29 Aripiprazole (Abilify) 10 mg DAILY ORAL 11/26/18 09:00 12/26/18 08:59 11/28/18 09:44 Aspirin (ASA) 81 mg DAILY ORAL 11/27/18 13:30 12/27/18 13:29 11/28/18 09:45 Chlorhexidine Gluconate (Pia-Hex 2%) 1 applic DAILY@2000 TOPIC 11/25/18 20:00 12/25/18 19:59 11/27/18 22:10 Dextrose (Dextrose 50%) 25 ml Q30M PRN IV Hypoglycemia 11/27/18 06:30 12/27/18 06:29 Dextrose (Dextrose 50%) 50 ml Q30M PRN IV Hypoglycemia 11/27/18 06:30 12/27/18 06:29 Digoxin (Lanoxin) 0.25 mg DAILY ORAL 11/28/18 09:00 12/28/18 08:59 11/28/18 09:45 Docusate Sodium (Colace) 100 mg THREE TIMES A DAY ORAL 11/27/18 18:00 12/27/18 17:59 11/28/18 09:44 Heparin Sodium (Porcine) (Heparin 5000 units/ml) 5,000 units EVERY 12 HOURS SUBQ 11/25/18 21:00 12/25/18 20:59 11/28/18 09:47 Hydralazine HCl (Apresoline) 10 mg Q8HR ORAL 11/26/18 22:00 12/26/18 13:59 11/28/18 06:18 Insulin Aspart (NovoLOG) BEFORE MEALS AND HS SUBQ 11/27/18 06:30 12/27/18 06:29 11/28/18 06:10 Nitroglycerin (Ntg) 1 patch Q24H TDERMAL 11/25/18 15:00 12/25/18 14:59 11/26/18 14:21 Ondansetron HCl (Zofran) 4 mg Q6H PRN IVP Nausea & Vomiting 11/25/18 11:30 12/25/18 11:29 Pantoprazole (Protonix) 40 mg EVERY 12 HOURS ORAL 11/26/18 21:00 12/26/18 20:59 11/28/18 09:45 Polyethylene Glycol (Miralax) 17 gm DAILYPRN PRN ORAL Constipation 11/25/18 11:30 12/25/18 11:29 Sevelamer Carbonate (Renvela) 2,400 mg THREE TIMES A DAY ORAL 11/27/18 18:00 12/27/18 17:59 11/28/18 09:45 Temazepam (Restoril) 15 mg HSPRN PRN ORAL Insomnia 11/25/18 11:30 12/02/18 11:29 Luis Miguel Donohue MD Nov 28, 2018 12:08
--- NOTE | 2018-11-28 12:08 | NUR ---
RD ASSESSMENT & RECOMMENDATIONS SEE CARE ACTIVITY FOR COMPLETE ASSESSMENT DAILY ESTIMATED NEEDS: Needs based on ESRD on HD, 84kg adj 25-30 kcals/kg [id number] total kcals 1.2-1.8 g protein/kg 101-151 g total protein Fluid per MD, on HD NUTRITION DIAGNOSIS: Increased kcal and protein needs r/t renal dysfunction as evidenced by pt w/ ESRD on HD Altered nutrition related lab values r/t DM as evidenced by A1C 10.1. CURRENT DIET:renal puree PO DIET RECOMMENDATIONS: RENAL/ CCHO MED (texture per [employer]IC) ADDITIONAL RECOMMENDATIONS: 1) Add NEPRO x1 daily 2) Nephrovite x1 daily 3) Obtain a calibrated bed scale wt; standing preferred 4) HIGH PROTEIN SNACKS BID in b/w meal s 5) [employer]IC eval for appropriate texture for improved po intake
--- NOTE | 2018-11-28 14:50 | Cardiology Report ---
APPROVED REPORT EXAM: Two-dimensional and M-mode echocardiogram with Doppler and color Doppler. INDICATION Congestive Heart Failure M-Mode DIMENSIONS IVSd1.4 (0.7-1.1cm)Left Atrium (MM)3.9 (1.6-4.0cm) LVDd4.8 (3.5-5.6cm)Aortic Root3.7 (2.0-3.7cm) PWd1.0 (0.7-1.1cm)Aortic Cusp Exc.1.7 (1.5-2.0cm) IVSs2.1 cm LVDs3.5 (2.5-4.0cm) PWs1.1 cm Study quality precludes accurate assessment of regional wall motion. Global left ventricular hypokinesis . Left ventricular ejection fraction estimated to be mildly depressed . Mild left ventricular hypertrophy. Anterior Echo-free space, may be due to pericardial fat or effusion. All other cardiac chamber sizes are not well visualized . Mild aortic valve sclerosis with adequate cusp excursion. Moderately thickened mitral valve leaflets with normal excursion. Mild mitral annulus and aortic root calcification. Echogenic material noted on posterior mitral valve leaflet . Pulmonic valve not well visualized. IVC at size 2.0 cm without physiologic collapse suggestive of increased RA pressure. Pacemaker wire present in the right side chambers. A color flow and spectral Doppler study was performed and revealed: No aortic regurgitation. Mitral diastolic velocities suggest reduced left ventricular relaxation c/w mild LV diastolic dysfunction (Grade I ) Trace mitral regurgitation. Trace tricuspid regurgitation. Tricuspid systolic velocities suggests peak right ventricular systolic pressure of 23 mmHg
--- NOTE | 2018-11-28 15:06 | NUR ---
Social Work This SW followed up with patients spouse, Ryan ([phone]) who is insisting on patient discharging to home with her to assist. Spouse explains patient has been going to dialysis at [facility] ([phone]), [address], [place]. Spouse also is requesting [facility] to follow ([phone] fax: [phone]).
--- NOTE | 2018-11-28 15:15 | NUR ---
P.T Note: P.T evaluation completed and treatment initiated. Please refer to P.T evaluation for current functional status. Pt presented generalized weakness affecting balance and safety in performing ADL/functional mobilities. Pt currently require MIN A X 1 for bed mobilities, and transfers and CGA for gait/ambulation activities using the FWW. Skilled P.T service is warranted to improve strength, balance and endurance to increase safety and independence in functional mobilities. Recommend home with P.T follow up. DME to include FWW and bedside commode if none at home. Thank you this referral.
--- NOTE | 2018-11-28 15:57 | Diagnostic Imaging Report ---
Indications: Altered mental status Technique: Spiral acquisitions obtained through the brain. Angled axial and coronal 5 x 5 mm slices were reconstructed. Total dose length product 1449.98 mGycm. CTDI vol(s) 70.38 mGy. Dose reduction achieved using automated exposure control Comparison: None. Findings: There is minimal age-related prominence of the ventricles and extra axial CSF spaces. There is minimal periventricular deep white matter low-attenuation, consistent with chronic ischemic change. Otherwise normal crook-white differentiation. No acute intracranial hemorrhage nor edema, mass effect, nor midline shift. Intact calvarium. Visualized orbits and sinuses are unremarkable. Impression: Mild chronic and age-related changes, as described Negative for acute intracranial bleed or mass effect The CT scanner at [facility] is accredited by the [employer] and the scans are performed using protocols designed to limit radiation exposure to as low as reasonably achievable to attain images of sufficient resolution adequate for diagnostic evaluation.
[2018-11-28 16:00] VITALS: BP 156/88
[2018-11-28] MEDS: Nitroglycerin Patch 0.4mg TDERMAL SCH (17:19)
--- NOTE | 2018-11-28 17:48 | Nephrology Progress Note ---
Assessment/Plan Problem List: (1) ESRF (end stage renal failure) (2) Acute metabolic encephalopathy (3) Cardiomyopathy (4) Elevated troponin I level Assessment ESRD, Presents with ALOC and High K Encephalopathy DM HTN Atrial Fib Flutter elevated Troponin I Plan HD in am adjust BP meds kayexelate as needed Keep BP and BS under control Nitro dermal echo: global hypokinesis phos binder monitor dig level Subjective ROS Limited/Unobtainable: No Constitutional: Reports: malaise Objective Objective Last 24 Hour Vital Signs Date Time Temp Pulse Resp B/P (MAP) Pulse Ox O2 Delivery O2 Flow Rate FiO2 11/28/18 17:19 156/88 11/28/18 16:00 79 11/28/18 16:00 98.1 80 20 156/88 (110) 97 11/28/18 13:30 131/68 11/28/18 12:00 97.5 84 18 131/68 (89) 100 11/28/18 11:44 87 11/28/18 09:45 80 11/28/18 09:00 Room Air 11/28/18 08:00 80 11/28/18 08:00 97.5 80 20 124/72 (89) 100 11/28/18 06:18 140/89 11/28/18 04:00 81 11/28/18 04:00 98.0 88 18 115/73 (87) 97 11/28/18 00:00 97.9 77 19 126/76 (93) 98 11/28/18 00:00 79 11/27/18 22:00 110/68 11/27/18 21:00 Room Air 11/27/18 20:00 100 11/27/18 20:00 98.1 96 19 110/68 (82) 96 Intake and Output 11/27/18 11/28/18 19:00 07:00 Intake Total 480 ml 240 ml Output Total 400 ml Balance 80 ml 240 ml Intake Oral 480 ml 240 ml Output Urine Total 400 ml # Voids 1 # Bowel Movements 1 2 Laboratory Tests 11/28/18 06:43: White Blood Count 6.0, Red Blood Count 4.18L, Hemoglobin 13.8L, Hematocrit 42.0 , Mean Corpuscular Volume 101H, Mean Corpuscular Hemoglobin 33.0H, Mean Corpuscular Hemoglobin Concent 32.8, Red Cell Distribution Width 15.5H, Platelet Count 122L, Mean Platelet Volume 7.4, Neutrophils (%) (Auto) 69.4, Lymphocytes (%) (Auto) 14.6L, Monocytes (%) (Auto) 12.0H, Eosinophils (%) (Auto ) 2.4, Basophils (%) (Auto) 1.6, Sodium Level 138, Potassium Level 3.6, Chloride Level 94L, Carbon Dioxide Level 26, Anion Gap 18H, Blood Urea Nitrogen 61H, Creatinine 9.8H, Estimat Glomerular Filtration Rate 6.4, Glucose Level 161H , Uric Acid 5.9, Calcium Level 8.1L, Phosphorus Level 8.6H, Magnesium Level 2.3 , Total Bilirubin 0.4, Aspartate Amino Transf (AST/SGOT) 41H, Alanine Aminotransferase (ALT/SGPT) 29, Alkaline Phosphatase 89, C-Reactive Protein, Quantitative 3.1H, Pro-B-Type Natriuretic Peptide 33995E, Total Protein 7.6, Albumin 3.4, Globulin 4.2, Albumin/Globulin Ratio 0.8L, Digoxin Level 0.8 Height (Feet): 5 Height (Inches): 10.00 Weight (Pounds): 245 General Appearance: no apparent distress Objective no change Francisco Javier Abraham MD Nov 28, 2018 17:48
--- NOTE | 2018-11-28 19:08 | Cardiology Progress Note ---
Assessment/Plan Assessment/Plan (1) acute chf (2) Atrial fibrillation with RVR (3) Anemia (4) Pulmonary hypertension (5) COPD (chronic obstructive pulmonary disease) (6) Hypoxemia 7. abn lft like related to renal insuf mentally seem better neuro noted dialysis tomorrow follow ekg may need acie once stable on dialysis follwo tele Subjective Cardiovascular: Denies: chest pain, lightheadedness Respiratory: Denies: shortness of breath Gastrointestinal/Abdominal: Denies: abdominal pain Genitourinary: Reports: no symptoms Objective Last 24 Hour Vital Signs Date Time Temp Pulse Resp B/P (MAP) Pulse Ox O2 Delivery O2 Flow Rate FiO2 11/28/18 17:19 156/88 11/28/18 16:00 79 11/28/18 16:00 98.1 80 20 156/88 (110) 97 11/28/18 13:30 131/68 11/28/18 12:00 97.5 84 18 131/68 (89) 100 11/28/18 11:44 87 11/28/18 09:45 80 11/28/18 09:00 Room Air 11/28/18 08:00 80 11/28/18 08:00 97.5 80 20 124/72 (89) 100 11/28/18 06:18 140/89 11/28/18 04:00 81 11/28/18 04:00 98.0 88 18 115/73 (87) 97 11/28/18 00:00 97.9 77 19 126/76 (93) 98 11/28/18 00:00 79 11/27/18 22:00 110/68 11/27/18 21:00 Room Air 11/27/18 20:00 100 11/27/18 20:00 98.1 96 19 110/68 (82) 96 General Appearance: no apparent distress, alert, obese Neck: supple Cardiovascular: normal rate, regular rhythm Respiratory/Chest: lungs clear Abdomen: normal bowel sounds, non tender, soft Extremities: moderate edema Intake and Output 11/27/18 11/28/18 19:00 07:00 Intake Total 480 ml 240 ml Output Total 400 ml Balance 80 ml 240 ml Intake Oral 480 ml 240 ml Output Urine Total 400 ml # Voids 1 # Bowel Movements 1 2 Laboratory Tests Test 11/28/18 06:43 White Blood Count 6.0 K/UL (4.8-10.8) Red Blood Count 4.18 M/UL (4.70-6.10) L Hemoglobin 13.8 G/DL (14.2-18.0) L Hematocrit 42.0 % (42.0-52.0) Mean Corpuscular Volume 101 FL (80-99) H Mean Corpuscular Hemoglobin 33.0 PG (27.0-31.0) H Mean Corpuscular Hemoglobin Concent 32.8 G/DL (32.0-36.0) Red Cell Distribution Width 15.5 % (11.6-14.8) H Platelet Count 122 K/UL (150-450) L Mean Platelet Volume 7.4 FL (6.5-10.1) Neutrophils (%) (Auto) 69.4 % (45.0-75.0) Lymphocytes (%) (Auto) 14.6 % (20.0-45.0) L Monocytes (%) (Auto) 12.0 % (1.0-10.0) H Eosinophils (%) (Auto) 2.4 % (0.0-3.0) Basophils (%) (Auto) 1.6 % (0.0-2.0) Sodium Level 138 MMOL/L (136-145) Potassium Level 3.6 MMOL/L (3.5-5.1) Chloride Level 94 MMOL/L (98-107) L Carbon Dioxide Level 26 MMOL/L (21-32) Anion Gap 18 mmol/L (5-15) H Blood Urea Nitrogen 61 mg/dL (7-18) H Creatinine 9.8 MG/DL (0.55-1.30) H Estimat Glomerular Filtration Rate 6.4 mL/min (>60) Glucose Level 161 MG/DL (74-106) H Uric Acid 5.9 MG/DL (2.6-7.2) Calcium Level 8.1 MG/DL (8.5-10.1) L Phosphorus Level 8.6 MG/DL (2.5-4.9) H Magnesium Level 2.3 MG/DL (1.8-2.4) Total Bilirubin 0.4 MG/DL (0.2-1.0) Aspartate Amino Transf (AST/SGOT) 41 U/L (15-37) H Alanine Aminotransferase (ALT/SGPT) 29 U/L (12-78) Alkaline Phosphatase 89 U/L (46-116) C-Reactive Protein, Quantitative 3.1 mg/dL (0.00-0.90) H Pro-B-Type Natriuretic Peptide 95847 pg/mL (0-125) H Total Protein 7.6 G/DL (6.4-8.2) Albumin 3.4 G/DL (3.4-5.0) Globulin 4.2 g/dL Albumin/Globulin Ratio 0.8 (1.0-2.7) L Digoxin Level 0.8 NG/ML (0.5-2.0) Preston Perla MD Nov 28, 2018 19:08
[2018-11-28 20:00] VITALS: BP 156/96
[2018-11-28] MEDS: Dyna-Hex 2% Top Sol 2oz TOPIC SCH (20:00)
--- NOTE | 2018-11-28 20:36 | General Progress Note ---
Assessment/Plan Problem List: (1) Acute metabolic encephalopathy ICD Codes: G93.41 - Metabolic encephalopathy SNOMED: 55809819, 961592606 (2) MDD (major depressive disorder), recurrent episode, moderate ICD Codes: F33.1 - Major depressive disorder, recurrent, moderate SNOMED: 53659015, 521513389 (3) Anxiety disorder ICD Codes: F41.9 - Anxiety disorder, unspecified SNOMED: 988401961 Assessment/Plan Abilify 10mg po qam Zoloft 25mg qam provide ro/st. Subjective Neurologic/Psychiatric: Reports: anxiety, depressed, emotional problems Allergies: Coded Allergies: No Known Allergies (Verified , 07/21/11) Subjective the pt is doing better and is more alert nad no agitation Objective Last 24 Hour Vital Signs Date Time Temp Pulse Resp B/P (MAP) Pulse Ox O2 Delivery O2 Flow Rate FiO2 11/28/18 17:19 156/88 11/28/18 16:00 79 11/28/18 16:00 98.1 80 20 156/88 (110) 97 11/28/18 13:30 131/68 11/28/18 12:00 97.5 84 18 131/68 (89) 100 11/28/18 11:44 87 11/28/18 09:45 80 11/28/18 09:00 Room Air 11/28/18 08:00 80 11/28/18 08:00 97.5 80 20 124/72 (89) 100 11/28/18 06:18 140/89 11/28/18 04:00 81 11/28/18 04:00 98.0 88 18 115/73 (87) 97 11/28/18 00:00 97.9 77 19 126/76 (93) 98 11/28/18 00:00 79 11/27/18 22:00 110/68 11/27/18 21:00 Room Air Intake and Output 11/27/18 11/28/18 19:00 07:00 Intake Total 480 ml 240 ml Output Total 400 ml Balance 80 ml 240 ml Intake Oral 480 ml 240 ml Output Urine Total 400 ml # Voids 1 # Bowel Movements 1 2 Laboratory Tests 11/28/18 06:43: White Blood Count 6.0, Red Blood Count 4.18L, Hemoglobin 13.8L, Hematocrit 42.0 , Mean Corpuscular Volume 101H, Mean Corpuscular Hemoglobin 33.0H, Mean Corpuscular Hemoglobin Concent 32.8, Red Cell Distribution Width 15.5H, Platelet Count 122L, Mean Platelet Volume 7.4, Neutrophils (%) (Auto) 69.4, Lymphocytes (%) (Auto) 14.6L, Monocytes (%) (Auto) 12.0H, Eosinophils (%) (Auto ) 2.4, Basophils (%) (Auto) 1.6, Sodium Level 138, Potassium Level 3.6, Chloride Level 94L, Carbon Dioxide Level 26, Anion Gap 18H, Blood Urea Nitrogen 61H, Creatinine 9.8H, Estimat Glomerular Filtration Rate 6.4, Glucose Level 161H , Uric Acid 5.9, Calcium Level 8.1L, Phosphorus Level 8.6H, Magnesium Level 2.3 , Total Bilirubin 0.4, Aspartate Amino Transf (AST/SGOT) 41H, Alanine Aminotransferase (ALT/SGPT) 29, Alkaline Phosphatase 89, C-Reactive Protein, Quantitative 3.1H, Pro-B-Type Natriuretic Peptide 62384H, Total Protein 7.6, Albumin 3.4, Globulin 4.2, Albumin/Globulin Ratio 0.8L, Digoxin Level 0.8 Height (Feet): 5 Height (Inches): 10.00 Weight (Pounds): 245 Glenda Rene MD Nov 28, 2018 20:36
--- NOTE | 2018-11-28 21:06 | NUR ---
HAND-OFF: Report given to KALEIGH Goodrich.
--- NOTE | 2018-11-28 23:00 | Progress Note ---
DATE: 11/28/2018 SUBJECTIVE: The patient is doing better. He is walking this morning using a walker. He was answering questions this morning. We just woke him up. The patient did have a CT scan of the brain done, which revealed no acute lesions. There is a chronic ischemic change, which is minimal. OBJECTIVE: VITAL SIGNS: Blood pressure is 156/88, pulse is 79 to 80, respirations 20, SpO2 is 97, and temperature is 98.1 degrees. MENTAL STATUS: He is lethargic, can do 1 step commands, knows his name, but cannot tell me where he is. He does not know the date including the year. Cranial nerves II through XII revealed essentially no change, a small symmetric extraocular motility and horizontal extraocular motility is full. in the midline. Muscle examination, he moves all 4 extremities fairly symmetrically. Reflexes is 0 in the upper and lower extremities. Coordination could not be done in this patient, he is bedbound at this time. IMPRESSION: The patient is probably sundowning and I just awakened him from sleep, so he is probably still a little confused. Still has a metabolic encephalopathy. Microbiology studies reveal blood cultures positive for Staphylococcus epidermidis, which is probably related to . Other studies are pending. Subdural hematoma was ruled out. He has a metabolic encephalopathy, most likely related to multiple factors including his end-stage renal disease. He may have an underlying dementia as well. Recently, he has small vessel disease from his hypertension and his diabetes. PLAN: Continue to follow the patient. Gustavo Torres MD DR: KONSTANTIN JOB#: [id number] CC:
[2018-11-29] VITALS: BP 140/104
[2018-11-29 04:00] VITALS: BP 128/75
[2018-11-29] MEDS: NovoLOG Insulin Flexpen SUBQ SCH ×2 (06:30→12:21)
[2018-11-29] MEDS: HydrALAZINE 10mg Tab ORAL SCH ×2 (06:37→13:18)
--- NOTE | 2018-11-29 07:14 | NUR ---
NURSE NOTES: Report given to on coming RN
--- NOTE | 2018-11-29 07:16 | NUR ---
NURSE NOTES: Report given to on coming RN
--- NOTE | 2018-11-29 07:20 | NUR ---
NURSE NOTES: Received pt. and report from KALEIGH Goodrich. Patient is resting in bed, sleeping. dragline oiler is in placed. Call light and bed side table within reach, Call light on. Bed is in the lowest position with two side rails up and locked. No acute distress noted at this time. Patient will get Hemodialysis today. Will continue to monitor and follow plan of care.
[2018-11-29 08:00] VITALS: BP 134/72
--- NOTE | 2018-11-29 08:17 | General Progress Note ---
Assessment/Plan Problem List: (1) Diabetes ICD Codes: E11.9 - Diabetes SNOMED: 31466676 (2) Acute metabolic encephalopathy ICD Codes: G93.41 - Metabolic encephalopathy SNOMED: 26228141, 512654113 (3) Hypoglycemia ICD Codes: E16.2 - Hypoglycemia, unspecified SNOMED: 590733695 (4) COPD (chronic obstructive pulmonary disease) ICD Codes: J44.9 - COPD (chronic obstructive pulmonary disease) SNOMED: 15349015 (5) ESRF (end stage renal failure) ICD Codes: N18.6 - End stage renal disease SNOMED: 49196747 Assessment/Plan no need for basal insulin since glucose values are not elevated continue Novolog sliding scale ac / hs Subjective Allergies: Coded Allergies: No Known Allergies (Verified , 07/21/11) All Systems: reviewed and negative except above Subjective events noted glucose values are stable without hypoglycemia without basal insulin Item Value Date Time Bedside Blood Glucose 106 mg/dl 11/29/18 0630 Bedside Blood Glucose 113 mg/dl 11/28/18 2158 Bedside Blood Glucose 143 mg/dl H 11/28/18 1725 Bedside Blood Glucose 138 mg/dl H 11/28/18 1244 Objective Last 24 Hour Vital Signs Date Time Temp Pulse Resp B/P (MAP) Pulse Ox O2 Delivery O2 Flow Rate FiO2 11/29/18 06:37 128/75 11/29/18 04:00 97.5 89 18 128/75 (92) 96 11/29/18 04:00 76 11/29/18 00:00 75 11/29/18 00:00 97.0 79 20 140/104 (116) 98 11/28/18 21:26 156/96 11/28/18 21:00 Room Air 11/28/18 20:00 97.0 84 20 156/96 (116) 100 11/28/18 20:00 83 11/28/18 17:19 156/88 11/28/18 16:00 79 11/28/18 16:00 98.1 80 20 156/88 (110) 97 11/28/18 13:30 131/68 11/28/18 12:00 97.5 84 18 131/68 (89) 100 11/28/18 11:44 87 11/28/18 09:45 80 11/28/18 09:00 Room Air Intake and Output 11/28/18 11/29/18 19:00 07:00 Intake Total 360 ml 120 ml Balance 360 ml 120 ml Intake Oral 360 ml 120 ml # Bowel Movements 1 1 Height (Feet): 5 Height (Inches): 10.00 Weight (Pounds): 243 General Appearance: no apparent distress Neck: normal alignment Cardiovascular: normal rate Respiratory/Chest: decreased breath sounds Abdomen: normal bowel sounds Objective Current Medications Medications (Trade) Dose Ordered Sig/Divya Route PRN Reason Start Time Stop Time Status Last Admin Dose Admin Acetaminophen (Tylenol) 650 mg Q4H PRN ORAL Fever (temp>100.5F) 11/25/18 11:30 12/25/18 11:29 Albuterol/ Ipratropium (Albuterol/ Ipratropium) 3 ml Q4H PRN HHN Shortness of Breath 11/25/18 11:30 11/30/18 11:29 Aripiprazole (Abilify) 10 mg DAILY ORAL 11/26/18 09:00 12/26/18 08:59 11/28/18 09:44 Aspirin (ASA) 81 mg DAILY ORAL 11/27/18 13:30 12/27/18 13:29 11/28/18 09:45 Chlorhexidine Gluconate (Pia-Hex 2%) 1 applic DAILY@2000 TOPIC 11/25/18 20:00 12/25/18 19:59 11/27/18 22:10 Dextrose (Dextrose 50%) 25 ml Q30M PRN IV Hypoglycemia 11/27/18 06:30 12/27/18 06:29 Dextrose (Dextrose 50%) 50 ml Q30M PRN IV Hypoglycemia 11/27/18 06:30 12/27/18 06:29 Digoxin (Lanoxin) 0.25 mg DAILY ORAL 11/28/18 09:00 12/28/18 08:59 11/28/18 09:45 Docusate Sodium (Colace) 100 mg THREE TIMES A DAY ORAL 11/27/18 18:00 12/27/18 17:59 11/28/18 09:44 Heparin Sodium (Porcine) (Heparin 5000 units/ml) 5,000 units EVERY 12 HOURS SUBQ 11/25/18 21:00 12/25/18 20:59 11/28/18 21:30 Hydralazine HCl (Apresoline) 10 mg Q8HR ORAL 11/26/18 22:00 12/26/18 13:59 11/29/18 06:37 Insulin Aspart (NovoLOG) BEFORE MEALS AND HS SUBQ 11/27/18 06:30 12/27/18 06:29 11/28/18 21:58 Nitroglycerin (Ntg) 1 patch Q24H TDERMAL 11/25/18 15:00 12/25/18 14:59 11/28/18 17:19 Ondansetron HCl (Zofran) 4 mg Q6H PRN IVP Nausea & Vomiting 11/25/18 11:30 12/25/18 11:29 Pantoprazole (Protonix) 40 mg EVERY 12 HOURS ORAL 11/26/18 21:00 12/26/18 20:59 11/28/18 21:27 Polyethylene Glycol (Miralax) 17 gm DAILYPRN PRN ORAL Constipation 11/25/18 11:30 12/25/18 11:29 Sevelamer Carbonate (Renvela) 2,400 mg THREE TIMES A DAY ORAL 11/27/18 18:00 12/27/18 17:59 11/28/18 17:18 Temazepam (Restoril) 15 mg HSPRN PRN ORAL Insomnia 11/25/18 11:30 12/02/18 11:29 Kaiser Alvarado MD Nov 29, 2018 08:17
[2018-11-29] MEDS: Heparin 5000 units/ml inj SUBQ SCH (09:00)
[2018-11-29] MEDS: ARIPiprazole 10mg tab ORAL SCH (09:09)
[2018-11-29] MEDS: Docusate 100mg cap ORAL SCH ×2 (09:09→13:17)
[2018-11-29] MEDS: Aspirin Baby 81mg ORAL SCH (09:09)
[2018-11-29] MEDS ORDERED: APRESOLINE10 MG ORAL (10:06)
[2018-11-29] MEDS ORDERED: RENVELA800 MG ORAL (10:06)
[2018-11-29 12:00] VITALS: BP 149/84
--- NOTE | 2018-11-29 12:42 | Cardiology Progress Note ---
Assessment/Plan Assessment/Plan (1) acute chf (2) Atrial fibrillation with RVR (3) Anemia (4) Pulmonary hypertension (5) COPD (chronic obstructive pulmonary disease) (6) Hypoxemia 7. abn trop like related to ernal insuf no acei as hyperkalemic resume luluamvivian per pharmacy decerae dig to 0.125 mg dialy cahbe to metoprolol 25 mg bi may be goign jacy etoday d/w rn Subjective Cardiovascular: Denies: chest pain, lightheadedness Respiratory: Denies: shortness of breath Gastrointestinal/Abdominal: Denies: abdominal pain Genitourinary: Denies: burning Objective Last 24 Hour Vital Signs Date Time Temp Pulse Resp B/P (MAP) Pulse Ox O2 Delivery O2 Flow Rate FiO2 11/29/18 09:09 80 11/29/18 09:00 Room Air 11/29/18 08:00 73 11/29/18 08:00 97.1 80 20 134/72 (92) 97 11/29/18 06:37 128/75 11/29/18 04:00 97.5 89 18 128/75 (92) 96 11/29/18 04:00 76 11/29/18 00:00 75 11/29/18 00:00 97.0 79 20 140/104 (116) 98 11/28/18 21:26 156/96 11/28/18 21:00 Room Air 11/28/18 20:00 97.0 84 20 156/96 (116) 100 11/28/18 20:00 83 11/28/18 17:19 156/88 11/28/18 16:00 79 11/28/18 16:00 98.1 80 20 156/88 (110) 97 11/28/18 13:30 131/68 General Appearance: alert Neck: supple Cardiovascular: normal rate, regular rhythm Respiratory/Chest: lungs clear Extremities: no swelling Intake and Output 11/28/18 11/29/18 18:59 06:59 Intake Total 360 ml 120 ml Balance 360 ml 120 ml Intake Oral 360 ml 120 ml # Bowel Movements 1 1 Preston Perla MD Nov 29, 2018 12:42
[2018-11-29] MEDS ORDERED: Metoprolol 25mg tab ORAL SCH (12:45)
--- NOTE | 2018-11-29 13:07 | Nephrology Progress Note ---
Assessment/Plan Problem List: (1) ESRF (end stage renal failure) (2) Acute metabolic encephalopathy (3) Cardiomyopathy (4) Elevated troponin I level Assessment ESRD, Presents with ALOC and High K Encephalopathy DM HTN Atrial Fib Flutter elevated Troponin I Plan HD in process now- adjust BP meds kayexelate as needed Keep BP and BS under control Nitro dermal echo: global hypokinesis phos binder monitor dig level per cardio Subjective ROS Limited/Unobtainable: No Objective Objective Last 24 Hour Vital Signs Date Time Temp Pulse Resp B/P (MAP) Pulse Ox O2 Delivery O2 Flow Rate FiO2 11/29/18 09:09 80 11/29/18 09:00 Room Air 11/29/18 08:00 73 11/29/18 08:00 97.1 80 20 134/72 (92) 97 11/29/18 06:37 128/75 11/29/18 04:00 97.5 89 18 128/75 (92) 96 11/29/18 04:00 76 11/29/18 00:00 75 11/29/18 00:00 97.0 79 20 140/104 (116) 98 11/28/18 21:26 156/96 11/28/18 21:00 Room Air 11/28/18 20:00 97.0 84 20 156/96 (116) 100 11/28/18 20:00 83 11/28/18 17:19 156/88 11/28/18 16:00 79 11/28/18 16:00 98.1 80 20 156/88 (110) 97 11/28/18 13:30 131/68 Intake and Output 11/28/18 11/29/18 18:59 06:59 Intake Total 360 ml 120 ml Balance 360 ml 120 ml Intake Oral 360 ml 120 ml # Bowel Movements 1 1 Height (Feet): 5 Height (Inches): 10.00 Weight (Pounds): 243 General Appearance: no apparent distress Objective no change Francisco Javier Abraham MD Nov 29, 2018 13:06
[2018-11-29 13:20] VITALS: BP 149/84
[2018-11-29] MEDS ORDERED: Tubing IV Secondary IV ONE (14:58)
--- NOTE | 2018-11-29 14:59 | NUR ---
NURSE NOTES: Patient discharged home per dr. Donohue's order. All discharge instructions explained to patient and , verbalized understanding.Heart monitor removed and returned to color television console monitor. IV removed. ID band removed and placed in shredder. Patient discharged home, self care in stable condition and with private car.
--- NOTE | 2018-11-29 20:45 | Electroencephalogram ---
DATE OF PROCEDURE: 11/28/2018 REQUESTING PHYSICIANS: Luis Miguel Donohue M.D. and Gustavo Torres M.D. HISTORY: This EEG was performed on a 68-year-old gentleman with a history of multiple medical problems including cerebrovascular disease and an alteration in his mental state. The purpose of this EEG was to evaluate the patient for the degree and type of cerebral dysfunction. TECHNICAL NOTE: This EEG was performed on a [employer] with electrodes placed on the scalp according to the International 10-20 system. [id number] and [id number] montages were used. The EEG was technically satisfactory and was performed in the awake, drowsy, and sleep states. OBSERVATIONS: In the best awake state, the background activity consisted of 8-8.5 Hz posteriorly predominant, well developed, alpha waveforms, which attenuated on eye opening. Drowsiness was characterized by dissolution of the alpha rhythm, and the appearance of slower frequencies in the 4-5 Hz theta range. In addition, right frontal polymorphic delta activity was also seen during drowsiness. Stage II sleep was characterized by further slowing of the background in the delta and theta range, the presence of vertex waves, and 14 Hz sleep spindles. No epileptiform discharges were seen. IMPRESSION: This is an abnormal EEG characterized by right frontal polymorphic delta activity seen during drowsiness. COMMENT: This study is consistent with focal dysfunction in the right frontal area. Clinical correlation is recommended. Niall Sidhu M.D., M.S.P.H. DR: RAMONE JOB#: [id number] [place]
--- NOTE | 2018-11-29 21:15 | Consultation ---
DATE OF CONSULTATION: 11/27/2018 CARDIOLOGY CONSULTATION CONSULTING PHYSICIAN: Preston Perla M.D. REFERRING PHYSICIAN: Luis Miguel Donohue M.D. REASON FOR REFERRAL: Shortness of breath. HISTORY OF PRESENT ILLNESS: This is an elderly gentleman, who is somewhat of a poor historian. Initially, the patient was admitted because of alteration in mental status. He tells me that he had actually taken a fall because of his weak knee on the left side. Nevertheless, when he presented to the emergency room, he was confused, very difficult to arouse. Paramedics found the patient to be hypoglycemic and despite treatment for that he became more hypoglycemic. Glucagon was administered. The patient was subsequently brought to the emergency room here at [facility] where he was seen in the emergency room and because of his alteration of mental status he was subsequently admitted to the hospital for further therapy. This consultation requested because the patient appeared to be volume overloaded. Once he is more oriented, he denies having had any chest pain or shortness of breath. There is no PND, he uses 3 or 4 pillows at home. He tells me he does walk around the house where he lives with his and he does not really have any heart pounding or palpitations. Denies any dizziness or lightheadedness episodes. PAST MEDICAL HISTORY: He was last seen here at this hospital in 2012. At that time, he had basically acute congestive heart failure, atrial fibrillation, rapid ventricular response, anemia, pulmonary hypertension, COPD, and hypoxemia. During the subsequent hospitalization, he was also diagnosed with renal failure as well and previously he has had a history of systemic hypertension, hyperlipidemia, diabetes mellitus, anemia, and heart failure felt to be diastolic in origin. ALLERGIES: He is not allergic to any medication. SOCIAL HISTORY: He used to smoke and drink that was 35 years ago. Does not use drugs. He lives at home as mentioned. REVIEW OF SYSTEMS: GASTROINTESTINAL: He denies any nausea, vomiting, diarrhea, or constipation. GENITOURINARY: He makes very little urine. PULMONARY: Denies any coughing or wheezing. CONSTITUTIONAL: Negative. MEDICATIONS: His prior to admission medications reportedly included allopurinol 100 twice a day, Abilify, aspirin 81 mg, Lipitor 10 mg, and vitamin D3 injection 125 mcg daily, Colace, ferrous sulfate, Lasix 40 mg daily, hydralazine 50 mg, insulin, lisinopril 20 mg daily, losartan 25 mg, metolazone 2-1/2 mg, metoprolol 50 mg, nifedipine ER 90 mg, nitroglycerin sublingually, Protonix, potassium, Zoloft and Coumadin. Unfortunately, not clear to me if he was taking all of his medications prior to admission. PHYSICAL EXAMINATION: GENERAL: Shows to be an elderly gentleman somewhat confused, but awake and responsive. NECK: Supple. No jugular venous distention. LUNGS: Clear to auscultation and percussion. CARDIAC: Regular rate and rhythm. No heaves, thrills, or gallops noted. ABDOMEN: Soft, nontender. Positive bowel sounds. EXTREMITIES: He has 1+ edema of the lower extremities. NEUROLOGICAL: He is awake and responsive, but somewhat confused. LABORATORY AND DIAGNOSTIC VALUES: On 11/27/2018, white count 6, hemoglobin 13.5, and platelet count of 149,000. His chemistry panel on 11/27/2018 showed sodium 138, potassium 4.4, chloride 94, bicarbonate 20. BUN of 91, creatinine 11.4, and glucose of 92. His calcium level was 7.6 and phosphorus of 8.8. He has several sets of cardiac enzymes that were drawn, but remained unchanged 0.078, 0.077, 0.065, and 0.077. His proBNP was 17,605. His total protein was 7.4. Albumin of 3.5. His x-rays that he had done prior to that admission and they include a CT scan showed mild chronic age related white matter changes, no acute infarction, mass effect was noted. An echocardiogram has been performed on 11/25/2018 showed global hypokinesis. Left ventricular ejection fraction was felt to be mildly decreased, diastolic relaxation abnormality mild degree was noted, no significant valvular regurgitation was noted. He did also have x-ray of his chest at that time and that showed cardiomegaly with evidence of congestive heart failure. His EKG basically showed atrial flutter with leftward axis and right bundle-branch conduction defect ventricular paced intermittently. The patient has a history of pacemaker implantation as well. ASSESSMENT AND PLAN: 1. Permanent atrial fibrillation, on anticoagulation. 2. Altered mentation. 3. End-stage renal disease, on hemodialysis. 4. History of permanent pacemaker implantation. 5. History of diastolic heart failure. 6. Mild systolic dysfunction. 7. End-stage renal disease. 8. Hypoglycemia. 9. Abnormal troponin, felt to be related to renal insufficiency and decreased clearance with no . 10. COPD. 11. Hypoxemia The patient was seen in cardiac consultation. The patient had improvement in his symptoms. With dialysis, he has done well so far with dialysis. His EKG appears to be rate controlled. He should be on anticoagulation and continued on anticoagulation with Coumadin. The patient have a digoxin level checked again as needed. His digoxin on the day of my visit was 0.6, but prior to that it was less than 0.2 and not sure he was actually taking it. He should be back on his anticoagulation with Coumadin and he has already been seen by . neurology, who feels that the patient likely has metabolic encephalopathy as well as underlying dementia and he needs to be followed as outpatient. He should be considered for resumption of KAYLA inhibitors if okay with Nephrology after he stabilizes in light of the fact that he does have some systolic dysfunction. Preston Perla M.D. DR: MERVIN JOB#: [id number] CC:
--- NOTE | 2018-11-29 22:03 | General Progress Note ---
Assessment/Plan Problem List: (1) Acute metabolic encephalopathy ICD Codes: G93.41 - Metabolic encephalopathy SNOMED: 45259143, 190258907 (2) MDD (major depressive disorder), recurrent episode, moderate ICD Codes: F33.1 - Major depressive disorder, recurrent, moderate SNOMED: 44589832, 861627791 (3) Anxiety disorder ICD Codes: F41.9 - Anxiety disorder, unspecified SNOMED: 636049117 Assessment/Plan Abilify 10mg po qam Zoloft 25mg qam provide ro/st. Subjective Allergies: Coded Allergies: No Known Allergies (Verified , 07/21/11) Subjective the pt is doing better and is more alert nad no agitation Objective Last 24 Hour Vital Signs Date Time Temp Pulse Resp B/P (MAP) Pulse Ox O2 Delivery O2 Flow Rate FiO2 11/29/18 13:20 77 149/84 11/29/18 13:18 149/84 11/29/18 12:00 96.8 77 20 149/84 (105) 98 11/29/18 09:09 80 11/29/18 09:00 Room Air 11/29/18 08:00 73 11/29/18 08:00 97.1 80 20 134/72 (92) 97 11/29/18 06:37 128/75 11/29/18 04:00 97.5 89 18 128/75 (92) 96 11/29/18 04:00 76 11/29/18 00:00 75 11/29/18 00:00 97.0 79 20 140/104 (116) 98 Intake and Output 11/28/18 11/29/18 19:00 07:00 Intake Total 360 ml 120 ml Balance 360 ml 120 ml Intake Oral 360 ml 120 ml # Bowel Movements 1 1 Height (Feet): 5 Height (Inches): 10.00 Weight (Pounds): 243 Glenda Rene MD Nov 29, 2018 22:02
[2018-11-30] MEDS ORDERED: Digoxin 0.125mg tab ORAL SCH (09:00)
--- NOTE | 2018-12-01 13:52 | Discharge Summary ---
Discharge Summary Discharge Summary _ DATE OF ADMISSION: 11/25/2018 DATE OF DISCHARGE: 11/29/2018 DISCHARGED BY: Dr. Donohue REASON FOR ADMISSION: 68 years old male with past medical history of diabetes mellitus, hypertension, coronary artery disease, atrial fibrillation, end-stage renal disease, on hemodialysis, presented to emergency department with altered mental status. Patient was difficult to arouse. Paramedics found that patient was hypoglycemic. Paramedics provided patient with oral sugar. Patient initially improved, but then became hypoglycemic again. Patient was given dose of glucagon by paramedics . Patient was transferred to the emergency department for further management Upon evaluation vital signs were stable. Laboratory workup revealed no leukocytosis, stable hemoglobin and hematocrit. Potassium 6.3,, BUN 93 creatinine 10.2. Glucose at this time was elevated 223. Stable LFT. Troponin with mild elevation 0.078. Pro BNP 85343. Albumin 2.5. EKG revealed atrial flutter with controlled rate. Chest x-ray revealed cardiomegaly, CHF , left pacemaker, possible left pleural effusion. Patient was admitted for further management CONSULTANTS: pantry worker Dr. Perla neurologist Dr. Torres pulmonary Dr. Donohue card clothier Dr. Abraham decorator consultant Dr. Alvarado psychiatrist HOSPITAL COURSE Patient admitted to telemetry floor. Serial troponin were closely monitored, remained with mild elevation. EKG revealed atrial fibrillation , no evidence of acute ischemic changes. Per pantry worker abnormal troponin elevation was likely due to renal disease. Pattern of troponin elevation was not suggestive of acute coronary syndrome. Echocardiogram revealed global left ventricular hypokinesis with mild left ventricular hypertrophy. Right ventricular systolic pressure of 23. Patient was noted to have episode of atrial fibrillation with rapid ventricular response. Rate was controlled with beta-destiny and digoxin. Patient was on anticoagulation with Coumadin to keep INR in therapeutic range. Blood pressure was managed with beta-destiny and hydralazine. No KAYLA inhibitor given hyperkalemia. Consider further addition of isosorbide for management of congestive heart failure. Antiplatelet therapy with aspirin was continued. Statin was continued. Nitro sublingual was on board . GI prophylaxis provided. Linux Security Administrator closely followed . Per decorator consultant , no need for basal insulin, since blood glucose levels were not elevated. Linux Security Administrator recommended to continue sliding scale of insulin as needed. Hypoglycemia resolved. Hemoglobin A1c 10.1 clearly not at goal. Patient need careful further optimization of anti-glycemic regimen as outpatient to minimize risk of hypoglycemia. Supplemental oxygen provided as needed to keep pulse oximetry above 92%. Pulmonary toilet was on standby as needed. Prior to discharge pulse oximetry was stable on room air. Neurology closely followed . Per neurologist, patient had metabolic encephalopathy , most likely related to multiply factors, including end-stage renal disease. Patient may have underlying dementia as well. EEG revealed evidence consistent with focal dysfunction in the right frontal area. CT of the head revealed mild chronic and age-related changes, but was negative for acute intracranial bleeding or mass effect. Psychiatrist followed . Per psychiatrist, in addition to encephalopathy patient had major depressive disorder and anxiety disorder. Reality orientation and supportive therapy provided. Psychiatric medication regimen was optimized. Mental status improved . Patient was patient was working with physical therapist. Patient was stable for discharge home . FINAL DIAGNOSES: Acute CHF Atrial fibrillation with rapid ventricular response Acute metabolic encephalopathy-improved Anemia COPD Hyperkalemia Abnormal troponin , likely related to renal disease End-stage renal disease on hemodialysis Diabetes mellitus out of control ( [id number]) with initial hypoglycemia DISCHARGE MEDICATIONS: See Medication Reconciliation list. DISCHARGE INSTRUCTIONS: Patient was discharged home . Follow up with primary care provider. I have been assigned to dictate discharge summary for this account. I was not involved in the patient's management. Eliana Milner NP Dec 01, 2018 13:52
== END 2018-11-29 14:59 | disposition home or self-care (01) | DRG 637 ==
LOC: EDBD 09:31 → EMR 09:59 → 2E 10:01 → EDBEDREQ 11:54
PROC: 5A1D70Z Performance of Urinary Filtration, Intermittent, Less than 6 Hours Per Day (ICD-10-PCS; principal; 2018-11-25)
PROC: 05H833Z Insertion of Infusion Device into Left Axillary Vein, Percutaneous Approach (ICD-10-PCS; principal; 2018-11-25)
DX: E11.649 Type 2 diabetes mellitus with hypoglycemia without coma (principal); I50.33 Acute on chronic diastolic (congestive) heart failure; I13.2 Hypertensive heart and chronic kidney disease with heart failure and with stage 5 chronic kidney disease, or end stage renal disease; I48.92 Unspecified atrial flutter; F33.9 Major depressive disorder, recurrent, unspecified; F05 Delirium due to known physiological condition; N18.6 End stage renal disease; Z99.2 Dependence on renal dialysis; E11.22 Type 2 diabetes mellitus with diabetic chronic kidney disease; Z79.4 Long term (current) use of insulin; I48.91 Unspecified atrial fibrillation; J44.9 Chronic obstructive pulmonary disease, unspecified; G92 Toxic encephalopathy; E87.70 Fluid overload, unspecified; F41.9 Anxiety disorder, unspecified; R09.02 Hypoxemia; Z95.0 Presence of cardiac pacemaker; I25.10 Atherosclerotic heart disease of native coronary artery without angina pectoris; E87.5 Hyperkalemia; D64.9 Anemia, unspecified
CPT/HCPCS: 36415; 36569; 70450; 71045; 76937; 80053; 80162; 82550; 82553; 82607; 82746; 82962; 83036; 83690; 83735; 83880; 84100; 84443; 84484; 84550; 85025; 85610; 85730; 86140; 87040; 87081; 87181; 93005; 93306; 95819; 99291; J1815

== ENCOUNTER 2018-12-22 16:31 | Inpatient (IN) | payer MEDICARE, MEDICAID ==
[~2018-12-22] VITALS: Ht 175.3 cm; Wt 110.9 kg
[~2018-12-22 16:31] MED LIST changes: +ABILIFY2 MG ORAL; +APRESOLINE10 MG ORAL; +ATORVASTATIN CA10 MG ORAL; +COUMADIN1 MG ORAL; +COZAAR25 MG ORAL; +PROTONIX40 MG ORAL; +RENVELA800 MG ORAL; +ZOLOFT25 MG ORAL
[2018-12-22] MEDS ORDERED: COZAAR100 MG ORAL (16:35)
--- NOTE | 2018-12-22 16:42 | NUR ---
ED Nurse Note: Pt BIBA from home due to complaints of generalized weakness x a couple months and left knee pain 04/22. Non radiating. EMS was initially called at the residence due to ground level fall and noted that pt had no way to get around and could not help him. Pt has right upper arm fistula and attends dialysis T, , S. Last dialysis day was yesterday Saturday. A + O x4.
[2018-12-22 16:44] VITALS: BP 143/75
--- NOTE | 2018-12-22 16:57 | Emergency Room Report ---
History of Present Illness General Chief Complaint: Generalized Weakness Source: Patient Present Illness HPI This is a 68-year-old male with multiple medical problems, complains of generalized weakness for the last several months but has gone progressively worse over the last several days. He has an appointment to look at his left knee, and then when he got home, he was unable to walk a few steps to his house and felt very short of breath and very weak. He denies any chest pain. He states that he's had some coughing and shortness of breath for the last several days it's worse on movement and exertion. He denies any nausea, vomiting, diarrhea.. Allergies: Coded Allergies: No Known Allergies (Verified , 07/21/11) Patient History Past Medical History: HTN, CHF, arrhyth, dialysis Past Surgical History: none Pertinent Family History: none Nursing Documentation-PMH Hx Cardiac Problems: Yes Hx Hypertension: Yes Hx Pacemaker: No Hx Asthma: Yes - PNA Hx COPD: Yes Hx Diabetes: Yes Hx Cancer: No Hx Gastrointestinal Problems: Yes Hx Dialysis: No - POOR KIDNEY FUNCTION Hx Neurological Problems: Yes Hx Cerebrovascular Accident: Yes Hx Headaches: Yes Hx Weakness: Yes - lower extreities Review of Systems All Other Systems: negative except mentioned in HPI Physical Exam Vital Signs Date Time Temp Pulse Resp B/P (MAP) Pulse Ox O2 Delivery O2 Flow Rate FiO2 12/22/18 16:25 97.9 83 19 100/62 97 Room Air 12/22/18 16:44 93 General Appearance: well appearing, no apparent distress Head: normocephalic, atraumatic ENT: hearing grossly normal, normal voice Neck: full range of motion, supple Respiratory: no respiratory distress, rales, speaking full sentences Cardiovascular #1: normal peripheral pulses, regular rate, rhythm, no edema Musculoskeletal: normal inspection, no calf tenderness Neurologic: alert, oriented x3, responsive, research worker encyclopedia III-XII nml as tested Psychiatric: mood/affect normal Skin: no rash Procedures Critical Care Time Critical Care Time Critical care was done on this patient due to the life-threatening hyperkalemia. I spent 35 minutes on this patient, including review of the medical records, multiple examinations, intervention to prevent any life- threatening arrhythmia. This did not include attending to other patients. This did not include any procedures. Medical Decision Making Diagnostic Impression: Primary Impression: Hyperkalemia ER Course Patient has had multiple bedside evaluation. Patient presents significant complexity or wrists requiring emergent intervention. The patient significant hyperkalemia. Patient was given an emergent dose of bicarbonate and Kayexalate. I was concerned about EKG changes. The patient is not tachypnea, tachycardic. I discussed this with the admitting doctor as well. The patient would need to get dialyzed emergently as an inpatient. The patient be admitted to telemetry unit. Laboratory Tests Test 12/22/18 15:55 White Blood Count 9.4 K/UL (4.8-10.8) Red Blood Count 4.35 M/UL (4.70-6.10) L Hemoglobin 14.2 G/DL (14.2-18.0) Hematocrit 43.9 % (42.0-52.0) Mean Corpuscular Volume 101 FL (80-99) H Mean Corpuscular Hemoglobin 32.6 PG (27.0-31.0) H Mean Corpuscular Hemoglobin Concent 32.3 G/DL (32.0-36.0) Red Cell Distribution Width 15.9 % (11.6-14.8) H Platelet Count 164 K/UL (150-450) Mean Platelet Volume 7.5 FL (6.5-10.1) Neutrophils (%) (Auto) 76.4 % (45.0-75.0) H Lymphocytes (%) (Auto) 12.3 % (20.0-45.0) L Monocytes (%) (Auto) 7.0 % (1.0-10.0) Eosinophils (%) (Auto) 2.8 % (0.0-3.0) Basophils (%) (Auto) 1.5 % (0.0-2.0) Prothrombin Time 10.4 SEC (9.30-11.50) Prothrombin Time INR 1.0 (0.9-1.1) Sodium Level 135 MMOL/L (136-145) L Potassium Level 7.6 MMOL/L (3.5-5.1) *H Chloride Level 97 MMOL/L (98-107) L Carbon Dioxide Level 18 MMOL/L (21-32) L Anion Gap 19 mmol/L (5-15) H Blood Urea Nitrogen 72 mg/dL (7-18) H Creatinine 8.2 MG/DL (0.55-1.30) H Estimate Glomerular Filtration Rate 7.9 mL/min (>60) Glucose Level 256 MG/DL (74-106) H Calcium Level 9.8 MG/DL (8.5-10.1) Total Bilirubin 0.3 MG/DL (0.2-1.0) Aspartate Amino Transferase (AST) 23 U/L (15-37) Alanine Aminotransferase (ALT) 32 U/L (12-78) Alkaline Phosphatase 133 U/L (46-116) H Troponin I 0.045 ng/mL (0.000-0.056) Pro-B-Type Natriuretic Peptide 69415 pg/mL (0-125) H Total Protein 9.0 G/DL (6.4-8.2) H Albumin 3.9 G/DL (3.4-5.0) Globulin 5.1 g/dL Albumin/Globulin Ratio 0.8 (1.0-2.7) L EKG Diagnostic Results EKG Time: 17:16 Rate: other - A Fib with intraventricular block. no ST elevation noted Chest X-Ray Diagnostic Results Chest X-Ray Diagnostic Results : Chest X-Ray Ordered: Yes # of Views/Limited/Complete: 1 View Indication: Shortness of Breath Interpretation: other - CHF Last Vital Signs Date Time Temp Pulse Resp B/P (MAP) Pulse Ox O2 Delivery O2 Flow Rate FiO2 12/22/18 16:44 91 25 Room Air 93 12/22/18 16:44 97.9 143/75 93 Status: improved Disposition: ADMITTED INPATIENT Condition: Serious SHANIKA DASILVA Dec 22, 2018 16:57
--- NOTE | 2018-12-22 17:01 | NUR ---
ED Nurse Note: Notified ERMD of pt unable to urinate.
--- NOTE | 2018-12-22 17:02 | NUR ---
ED Nurse Note: Xray at the bedside.
[2018-12-22 17:16] LABS: BASOPHILS % (AUTO) 1.5 % (0.0-2.0); EOSINOPHILS % (AUTO) 2.8 % (0.0-3.0); HEMATOCRIT 43.9 % (42.0-52.0); HEMOGLOBIN 14.2 G/DL (14.2-18.0); LYMPHOCYTES % (AUTO) 12.3 % (20.0-45.0); MEAN CORPUSCULAR VOLUME 101 FL (80-99); NEUTROPHILS % (AUTO) 76.4 % (45.0-75.0); PLATELET COUNT 164 K/UL (150-450); RED BLOOD COUNT 4.35 M/UL (4.70-6.10); RED CELL DISTRIBUTION WIDTH 15.9 % (11.6-14.8); WHITE BLOOD COUNT 9.4 K/UL (4.8-10.8)
[2018-12-22 17:33] LABS: ALANINE AMINOTRANSFERASE 32 U/L (12-78); ALBUMIN 3.9 G/DL (3.4-5.0); ALBUMIN/GLOBULIN RATIO 0.8 (1.0-2.7); ALKALINE PHOSPHATASE 133 U/L (46-116); ANION GAP 19 mmol/L (5-15); ASPARTATE AMINO TRANSFERASE 23 U/L (15-37); BILIRUBIN,TOTAL 0.3 MG/DL (0.2-1.0); BLOOD UREA NITROGEN 72 mg/dL (7-18); CALCIUM 9.8 MG/DL (8.5-10.1); CARBON DIOXIDE 18 MMOL/L (21-32); CHLORIDE 97 MMOL/L (98-107); CREATININE 8.2 MG/DL (0.55-1.30); SODIUM 135 MMOL/L (136-145)
--- NOTE | 2018-12-22 17:36 | NUR ---
ED Nurse Note: Spoke to , According to her, last dialysis day was Saturday12/20/18
[2018-12-22 17:41] LABS: POTASSIUM 7.6 MMOL/L (3.5-5.1)
[2018-12-22] MEDS ORDERED: Sodium Bicarbonate 50ml Carp IV ONE (18:00)
[2018-12-22] MEDS ORDERED: Sodium Polystyrene Sulfonate 15gm Powder ORAL ONE (18:00)
[2018-12-22] MEDS ORDERED: Sodium Polystyrene Sulfon/Sorb 15gm/60ml Susp ORAL SCH (18:15)
[2018-12-22 18:56] VITALS: BP 135/70
--- NOTE | 2018-12-22 19:14 | NUR ---
HAND-OFF: Report given to KALEIGH Hines.
--- NOTE | 2018-12-22 19:15 | NUR ---
ED Nurse Note: Received report from Sammie/KALEIGH. Pt is a/o x4, will continue to monitor.
[2018-12-22] MEDS ORDERED: Albuterol/Ipratropium 3ml neb HHN PRN (21:00)
[2018-12-22] MEDS ORDERED: Mylanta II UD 30ml ORAL PRN (21:00)
[2018-12-22] MEDS ORDERED: Zolpidem 5mg tab ORAL PRN (21:00)
[2018-12-22] MEDS ORDERED: Miralax 17gm pkt ORAL PRN (21:00)
[2018-12-22] MEDS ORDERED: Dextrose 50% 25ml Syringe IV PRN (21:15)
[2018-12-22] MEDS ORDERED: Metoprolol Tartrate 50mg tab ORAL SCH (22:00)
[2018-12-22] MEDS: HydrALAZINE 10mg Tab ORAL SCH (22:00)
[2018-12-22 22:15] VITALS: BP 141/82
--- NOTE | 2018-12-22 22:20 | NUR ---
NURSE NOTES: Received report from Carie Arnett RN vis telephone. Pt came to 2E via estebanepi w/o incident. hall monitor applied and belonging checked. ELAN AV shunt noted, LFA 22G w/ SL, asymptomatic. K 7.6 noted and Kayexalate 30gm was given in ED. Pt had BM and pt was cleaned and repositioned. No respiratory distress in RA. HD by VIP was confirmed and will be done tonight. BS144, Novolog 3Units was given and Tuna sandwich for CCHO M, 1 cup of apple juice was given per pt's request. Will follow plans of care. Addendum: 12/23/18 at 0049 by MAURO RONQUILLO RN HD nurse, came at 2340, 12/22 and HD is in precess. Prior to HD, BP was 141/82 and Hydralazine 10mg was held d/t HD. Will continue to monitor.
[2018-12-22] MEDS ORDERED: Metoprolol Succinate XL 50mg tab ORAL SCH (22:30)
--- NOTE | 2018-12-22 22:30 | NUR ---
TRANSFER TO FLOOR: Patient transferred to [facility] as ordered . Report given to Jason/KALEIGH. Belongings sent with Pt and rechecked with RN. Pt is A/O X4. VSS.
[2018-12-22] MEDS: NovoLOG Insulin Flexpen SUBQ SCH (23:34)
[2018-12-23 02:07] VITALS: BP 109/64
[2018-12-23] MEDS: Morphine Sulfate 2mg/ml Inj(IV/IM USE ONLY) IVP PRN ×2 (02:47→17:24)
[2018-12-23 04:00] VITALS: BP 114/69
[2018-12-23] MEDS: NovoLOG Insulin Flexpen SUBQ SCH ×4 (06:30→21:07)
[2018-12-23] MEDS: HydrALAZINE 10mg Tab ORAL SCH ×3 (07:11→21:06)
--- NOTE | 2018-12-23 07:25 | NUR ---
HAND-OFF: Report given to Monica Green RN.
--- NOTE | 2018-12-23 07:30 | NUR ---
CASE MANAGEMENT:REVIEW 68 YR OLD MALE FROM HOME CC: GENERALIZED WEAKNESS. S/P FALL. LT KNEE PAIN PMH: ESRD ON HD T,TH,SAT SI: HYPERKALEMIA 97.8 83 19 100/62 97% ON RA K+7.6 BUN+72 CR+8.2 BNP+[id number] IS: IV NA BICARBONATE KAYEXALATE PO CXR : TO TELEMETRY UNIT INTERQUAL CRITERIA MET
[2018-12-23 07:33] LABS: EOSINOPHILS % (AUTO) 3.5 % (0.0-3.0); HEMOGLOBIN 13.7 G/DL (14.2-18.0); LYMPHOCYTES % (AUTO) 8.9 % (20.0-45.0); MEAN CORPUSCULAR VOLUME 102 FL (80-99); MONOCYTES % (AUTO) 9.7 % (1.0-10.0); NEUTROPHILS % (AUTO) 75.9 % (45.0-75.0); PLATELET COUNT 142 K/UL (150-450); RED BLOOD COUNT 4.23 M/UL (4.70-6.10); RED CELL DISTRIBUTION WIDTH 16.2 % (11.6-14.8); WHITE BLOOD COUNT 8.2 K/UL (4.8-10.8)
[2018-12-23 07:58] LABS: ALANINE AMINOTRANSFERASE 29 U/L (12-78); ALBUMIN 3.5 G/DL (3.4-5.0); ALBUMIN/GLOBULIN RATIO 0.7 (1.0-2.7); ALKALINE PHOSPHATASE 112 U/L (46-116); ANION GAP 16 mmol/L (5-15); ASPARTATE AMINO TRANSFERASE 22 U/L (15-37); BILIRUBIN,TOTAL 0.3 MG/DL (0.2-1.0); BLOOD UREA NITROGEN 56 mg/dL (7-18); CALCIUM 9.6 MG/DL (8.5-10.1); CARBON DIOXIDE 23 MMOL/L (21-32); CHLORIDE 99 MMOL/L (98-107); CHOLESTEROL 140 MG/DL (< 200); CREATININE 7.3 MG/DL (0.55-1.30); HDL CHOLESTEROL 47 MG/DL (40-60); POTASSIUM 5.4 MMOL/L (3.5-5.1); SODIUM 138 MMOL/L (136-145); TRIGLYCERIDES 125 MG/DL (30-150)
[2018-12-23 08:00] VITALS: BP 115/58
--- NOTE | 2018-12-23 08:00 | NUR ---
NURSE NOTES: Pt in bed in low position, HOB in high fowlers eating breakfast, pt denies pain, Ox3 but doesnt seem confused as he awake and alert but cannot verbalize where he is at but knows he is in a hospital, pt did state he had a bowel movement and is wet and wants to be cleaned, IV site patent and asymptomatic, AV shunt brill and thrill on auscultation, bed alarm on, 2 rails up, urinal at bedside, no s/s of distress or sob noted.
[2018-12-23] MEDS ORDERED: Allopurinol 100mg Tab ORAL SCH (09:00)
--- NOTE | 2018-12-23 10:10 | Diagnostic Imaging Report ---
Indication: Dyspnea Technique: One view of the chest Comparison: 11/25/2018 Findings: The heart is enlarged. There is equivocal mild interstitial congestion, which appears similar to the previous study. There is a left chest pacemaker. Patient's chin obscures the upper mediastinum. Impression: Cardiomegaly. Mild interstitial congestion
[2018-12-23] MEDS: Lisinopril 20mg tab ORAL SCH (10:43)
[2018-12-23] MEDS: ARIPiprazole 10mg tab ORAL SCH (10:44)
[2018-12-23] MEDS: Digoxin 0.125mg tab ORAL SCH (10:44)
[2018-12-23] MEDS: Sertraline 50mg tab ORAL SCH (10:45)
[2018-12-23] MEDS: Heparin 5000 units/ml inj SUBQ SCH ×2 (10:51→21:07)
[2018-12-23 12:00] VITALS: BP 154/90
--- NOTE | 2018-12-23 12:42 | Consultation ---
History of Present Illness General Date patient seen: Dec 23, 2018 Chief Complaint: Generalized Weakness Present Illness HPI 68 year old male with hx of DM, a-fib, ESRF on dialysis presented to ER with CC of increased weakness and inability to walk. He also had an event of mechanical fall and couldn't get up. He lives with his who is one year younger than her and usually takes care of him. Allergies: Coded Allergies: No Known Allergies (Verified , 07/21/11) Medication History Scheduled Allopurinol* (Allopurinol*), 100 MG ORAL BID, (Reported) Aripiprazole* (Abilify*), Unknown Dose ORAL DAILY, (Reported) Aspirin* (Aspirin*), 81 MG ORAL DAILY, (Reported) Atorvastatin Calcium* (Atorvastatin Calcium*), 10 MG ORAL BEDTIME, (Reported) Atorvastatin Calcium* (Lipitor*), Unknown Dose ORAL BEDTIME, (Reported) Cholecalciferol (Vitamin D3)* (Vitamin D*), 1,000 UNIT ORAL DAILY, (Reported) Digoxin* (Digoxin*), 125 MCG ORAL DAILY, (Reported) Docusate Sodium* (Docusate Sodium*), 100 MG ORAL TID, (Reported) Ferrous Sulfate* (Ferrous Sulfate*), 325 MG ORAL BID, (Reported) Furosemide* (Lasix*), 40 MG ORAL DAILY, (Reported) Hydralazine HCl (Hydralazine HCl), 10 MG ORAL Q8HR Hydralazine Hcl* (Hydralazine Hcl*), 50 MG PO EVERY 8 HOURS, (Reported) Insulin Glargine (Lantus), 35 UNITS SUBQ BID, (Reported) Lisinopril* (Lisinopril*), 20 MG ORAL DAILY, (Reported) Losartan Potassium (Cozaar), 100 MG ORAL DAILY, (Reported) Losartan Potassium* (Cozaar*), Unknown Dose ORAL DAILY, (Reported) Metolazone (Metolazone), 2.5 MG ORAL DAILY, (Reported) Metoprolol Succinate* (Metoprolol Succinate*), 50 MG ORAL EVERY 8 HOURS, ( Reported) Nifedipine Er* (Nifedipine Er*), 60 MG ORAL BID, (Reported) Nitroglycerin (Nitroglycerin), 0.4 MG SL PRN, (Reported) Pantoprazole* (Protonix*), Unknown Dose ORAL DAILY, (Reported) Potassium Chloride* (K-Dur*), 20 MEQ ORAL DAILY, (Reported) Sertraline Hcl* (Zoloft*), Unknown Dose ORAL DAILY, (Reported) Sevelamer Carbonate (Renvela), 2,400 MG ORAL THREE TIMES A DAY Warfarin Sod* (Warfarin Sod*), 7.5 MG ORAL DAILY, (Reported) Warfarin Sod* (Coumadin*), Unknown Dose ORAL DAILY, (Reported) Patient History Healthcare decision maker Resuscitation status Full Code Advanced Directive on File Past Medical/Surgical History Past Medical/Surgical History: (1) Atrial fibrillation (2) Cardiomyopathy (3) ESRF (end stage renal failure) (4) Diabetes (5) COPD (chronic obstructive pulmonary disease) (6) Anemia Review of Systems All Other Systems: negative except mentioned in HPI Physical Exam General Appearance: WD/WN Lines, tubes and drains: peripheral HEENT: normocephalic, atraumatic Neck: non-tender, normal alignment Respiratory/Chest: chest wall non-tender, lungs clear Breasts: no masses Cardiovascular/Chest: normal peripheral pulses Abdomen: normal bowel sounds Genitourinary/Rectal: normal genital exam Extremities: normal range of motion Last 24 Hour Vital Signs Date Time Temp Pulse Resp B/P (MAP) Pulse Ox O2 Delivery O2 Flow Rate FiO2 12/23/18 10:45 86 115/58 12/23/18 10:44 86 12/23/18 10:43 115/58 12/23/18 08:51 Room Air 12/23/18 08:00 98.1 86 20 115/58 (77) 94 12/23/18 07:11 114/69 12/23/18 04:00 97.5 80 20 114/69 (84) 100 12/23/18 03:23 81 12/23/18 02:07 109/64 (79) 12/23/18 01:33 Room Air 12/23/18 00:15 85 12/22/18 23:19 95 12/22/18 22:30 98.2 68 20 135/88 99 Room Air 21 68 12/22/18 22:15 98.4 73 20 141/82 (101) 96 12/22/18 22:00 80 114/69 12/22/18 22:00 141/82 12/22/18 21:29 68 10 100 Room Air 21 12/22/18 21:22 68 25 100 Room Air 21 12/22/18 18:56 98.0 97 17 135/70 100 Room Air 93 12/22/18 16:44 91 25 Room Air 93 12/22/18 16:44 97.9 91 25 143/75 93 Room Air 12/22/18 16:25 97.9 83 19 100/62 97 Room Air Laboratory Tests Test 12/22/18 15:55 12/23/18 06:50 White Blood Count 9.4 K/UL (4.8-10.8) 8.2 K/UL (4.8-10.8) Red Blood Count 4.35 M/UL (4.70-6.10) L 4.23 M/UL (4.70-6.10) L Hemoglobin 14.2 G/DL (14.2-18.0) 13.7 G/DL (14.2-18.0) L Hematocrit 43.9 % (42.0-52.0) 43.0 % (42.0-52.0) Mean Corpuscular Volume 101 FL (80-99) H 102 FL (80-99) H Mean Corpuscular Hemoglobin 32.6 PG (27.0-31.0) H 32.3 PG (27.0-31.0) H Mean Corpuscular Hemoglobin Concent 32.3 G/DL (32.0-36.0) 31.9 G/DL (32.0-36.0) L Red Cell Distribution Width 15.9 % (11.6-14.8) H 16.2 % (11.6-14.8) H Platelet Count 164 K/UL (150-450) 142 K/UL (150-450) L Mean Platelet Volume 7.5 FL (6.5-10.1) 7.2 FL (6.5-10.1) Neutrophils (%) (Auto) 76.4 % (45.0-75.0) H 75.9 % (45.0-75.0) H Lymphocytes (%) (Auto) 12.3 % (20.0-45.0) L 8.9 % (20.0-45.0) L Monocytes (%) (Auto) 7.0 % (1.0-10.0) 9.7 % (1.0-10.0) Eosinophils (%) (Auto) 2.8 % (0.0-3.0) 3.5 % (0.0-3.0) H Basophils (%) (Auto) 1.5 % (0.0-2.0) 2.0 % (0.0-2.0) Prothrombin Time 10.4 SEC (9.30-11.50) Prothromb Time International Ratio 1.0 (0.9-1.1) Sodium Level 135 MMOL/L (136-145) L 138 MMOL/L (136-145) Potassium Level 7.6 MMOL/L (3.5-5.1) *H 5.4 MMOL/L (3.5-5.1) H Chloride Level 97 MMOL/L (98-107) L 99 MMOL/L (98-107) Carbon Dioxide Level 18 MMOL/L (21-32) L 23 MMOL/L (21-32) Anion Gap 19 mmol/L (5-15) H 16 mmol/L (5-15) H Blood Urea Nitrogen 72 mg/dL (7-18) H 56 mg/dL (7-18) H Creatinine 8.2 MG/DL (0.55-1.30) H 7.3 MG/DL (0.55-1.30) H Estimat Glomerular Filtration Rate 7.9 mL/min (>60) 9.1 mL/min (>60) Glucose Level 256 MG/DL (74-106) H 117 MG/DL (74-106) #H Calcium Level 9.8 MG/DL (8.5-10.1) 9.6 MG/DL (8.5-10.1) Total Bilirubin 0.3 MG/DL (0.2-1.0) 0.3 MG/DL (0.2-1.0) Aspartate Amino Transf (AST/SGOT) 23 U/L (15-37) 22 U/L (15-37) Alanine Aminotransferase (ALT/SGPT) 32 U/L (12-78) 29 U/L (12-78) Alkaline Phosphatase 133 U/L (46-116) H 112 U/L (46-116) Troponin I 0.045 ng/mL (0.000-0.056) Pro-B-Type Natriuretic Peptide 13691 pg/mL (0-125) H Total Protein 9.0 G/DL (6.4-8.2) H 8.3 G/DL (6.4-8.2) H Albumin 3.9 G/DL (3.4-5.0) 3.5 G/DL (3.4-5.0) Globulin 5.1 g/dL 4.8 g/dL Albumin/Globulin Ratio 0.8 (1.0-2.7) L 0.7 (1.0-2.7) L Hemoglobin A1c 8.6 % (4.3-6.0) H Triglycerides Level 125 MG/DL (30-150) Cholesterol Level 140 MG/DL (< 200) LDL Cholesterol 71 mg/dL (<100) HDL Cholesterol 47 MG/DL (40-60) Cholesterol/HDL Ratio 3.0 (3.3-4.4) L Thyroid Stimulating Hormone (TSH) 1.233 uiU/mL (0.358-3.740) Height (Feet): 5 Height (Inches): 9.00 Weight (Pounds): 239 Medications Current Medications Medications (Trade) Dose Ordered Sig/Divya Route PRN Reason Start Time Stop Time Status Last Admin Dose Admin Acetaminophen (Tylenol) 650 mg Q4H PRN ORAL fever 12/22/18 21:00 01/21/19 20:59 Al Hydroxide/Mg Hydroxide (Mylanta II) 30 ml Q6H PRN ORAL dyspepsia 12/22/18 21:00 01/21/19 20:59 Albuterol/ Ipratropium (Albuterol/ Ipratropium) 3 ml Q6H PRN HHN dyspnea 12/22/18 21:00 12/27/18 20:59 12/22/18 21:25 Allopurinol (Zyloprim) 100 mg BID ORAL 12/23/18 09:00 01/22/19 08:59 12/23/18 10:45 Aripiprazole (Abilify) 10 mg DAILY ORAL 12/23/18 09:00 01/22/19 08:59 12/23/18 10:44 Clonidine HCl (Catapres Tab) 0.1 mg Q4H PRN ORAL SBP>160 12/22/18 21:00 01/21/19 20:59 Dextrose (Dextrose 50%) 25 ml Q30M PRN IV Hypoglycemia 12/22/18 21:15 01/21/19 21:00 Dextrose (Dextrose 50%) 50 ml Q30M PRN IV hypoglycemia 12/22/18 21:15 01/21/19 21:14 Digoxin (Lanoxin) 0.125 mg DAILY ORAL 12/23/18 09:00 01/22/19 08:59 12/23/18 10:44 Furosemide (Lasix) 100 mg EVERY 8 HOURS PRN IV dyspnea 12/22/18 21:00 01/21/19 20:59 Heparin Sodium (Porcine) (Heparin 5000 units/ml) 5,000 units EVERY 12 HOURS SUBQ 12/23/18 09:00 01/22/19 08:59 12/23/18 10:51 Hydralazine HCl (Apresoline) 10 mg Q8HR ORAL 12/22/18 22:00 01/21/19 21:59 12/23/18 07:11 Insulin Aspart (NovoLOG) BEFORE MEALS AND HS SUBQ 12/22/18 21:00 01/21/19 20:59 12/23/18 12:03 Lisinopril (Prinivil) 20 mg DAILY ORAL 12/23/18 09:00 01/22/19 08:59 12/23/18 10:43 Metoprolol Succinate (Toprol XL) 50 mg Q8H ORAL 12/22/18 22:30 01/21/19 22:29 Future Hold Morphine Sulfate (Morphine Sulfate) 1 mg Q4H PRN IVP For Pain 12/22/18 21:00 12/29/18 20:59 12/23/18 02:47 Nifedipine (Procardia XL) 60 mg BID ORAL 12/23/18 09:00 01/22/19 08:59 12/23/18 10:45 Ondansetron HCl (Zofran) 4 mg Q6H PRN IVP Nausea & Vomiting 12/22/18 21:00 01/21/19 20:59 Polyethylene Glycol (Miralax) 17 gm HSPRN PRN ORAL Constipation 12/22/18 21:00 01/21/19 20:59 Sertraline HCl (Zoloft) 25 mg DAILY ORAL 12/23/18 09:00 01/22/19 08:59 12/23/18 10:45 Sevelamer Carbonate (Renvela) 2,400 mg THREE TIMES A DAY ORAL 12/23/18 09:00 01/22/19 08:59 12/23/18 10:44 Zolpidem Tartrate (Ambien) 5 mg HSPRN PRN ORAL Insomnia 12/22/18 21:00 12/29/18 20:59 Assessment/Plan Problem List: (1) Physical debility ICD Codes: R53.81 - Other malaise SNOMED: 59870623 (2) COPD (chronic obstructive pulmonary disease) ICD Codes: J44.9 - COPD (chronic obstructive pulmonary disease) SNOMED: 30686932 (3) ESRF (end stage renal failure) ICD Codes: N18.6 - End stage renal disease SNOMED: 02228925 (4) Hyperkalemia ICD Codes: E87.5 - Hyperkalemia SNOMED: 40640345 (5) Cardiomyopathy ICD Codes: I42.9 - Cardiomyopathy, unspecified SNOMED: 52265057 (6) Diabetes ICD Codes: E11.9 - Diabetes SNOMED: 05012843 Assessment/Plan monitor bed renal and cardiac evaluation optimize cardiac meds respiratory treatment titrate fio2 to sat of 92% check electrolytes. antitussives dvt prophylaxis Luis Miguel Donohue MD Dec 23, 2018 12:42
--- NOTE | 2018-12-23 12:55 | Consultation ---
Consult Note Consult Note I was asked to eval for dialysis management- Known to me from his previous admission This is a 68-year-old male with multiple medical problems, complains of generalized weakness for the last several months but has gone progressively worse over the last several days. He has an appointment to look at his left knee, and then when he got home, he was unable to walk a few steps to his house and felt very short of breath and very weak. He denies any chest pain. He states that he's had some coughing and shortness of breath for the last several days it's worse on movement and exertion. He denies any nausea, vomiting, diarrhea.. No Known Allergies (Verified , 07/21/11) Past Medical History: HTN, CHF, arrhyth, dialysis Past Surgical History: none Pertinent Family History: none Hx Cardiac Problems: Yes Hx Hypertension: Yes Hx Pacemaker: No Hx Asthma: Yes - PNA Hx COPD: Yes Hx Diabetes: Yes Hx Cancer: No Hx Gastrointestinal Problems: Yes Hx Dialysis: No - POOR KIDNEY FUNCTION Hx Neurological Problems: Yes Hx Cerebrovascular Accident: Yes Hx Headaches: Yes Hx Weakness: Yes - lower extreities seen examined already had dialysis last night early this am Assessment/Plan ESRD, Presents with ALOC and High K Encephalopathy DM HTN Atrial Fib Flutter HD + UF on 1 K bath done early am wiill repeat tomorrow Keep BP and BS under control Nitro dermal per orders check dig level for high K Francisco Javier Abraham MD Dec 23, 2018 12:55
[2018-12-23 13:37] LABS: PHOSPHORUS 5.7 MG/DL (2.5-4.9)
[2018-12-23 16:00] VITALS: BP 129/75
--- NOTE | 2018-12-23 17:02 | Cardiology Report ---
APPROVED REPORT EKG Measurement Heart [id number] NM P233 [id number] Atrial flutter with variable AV block with premature ventricular or aberrantly conducted complexes Nonspecific intraventricular block Possible Lateral infarct, age undetermined Abnormal ECG
--- NOTE | 2018-12-23 19:25 | NUR ---
HAND-OFF: Report given to Jmiena FARRIS, [facility] called for HD for 12/24/18.
--- NOTE | 2018-12-23 19:39 | NUR ---
NURSE NOTES: Report received from KALEIGH Pierce. Pt is lying comfortably in semi-fowlers with no signs of distress. Pt is A+Ox3 and denies pain/SOB. Respirations are even and unlabored on room air. Bed is at lowest position, brakes engaged, siderails x3, bed alarm on, and call light within reach. Pt is in stable condition; will continue to monitor.
[2018-12-23 20:00] VITALS: BP 141/93
[2018-12-24] VITALS: BP 132/71
[2018-12-24 04:00] VITALS: BP 108/49
[2018-12-24] MEDS: HydrALAZINE 10mg Tab ORAL SCH ×3 (06:09→22:19)
[2018-12-24] MEDS: NovoLOG Insulin Flexpen SUBQ SCH ×4 (06:12→20:47)
[2018-12-24 07:44] LABS: ALANINE AMINOTRANSFERASE 22 U/L (12-78); ALBUMIN/GLOBULIN RATIO 0.7 (1.0-2.7); ALKALINE PHOSPHATASE 100 U/L (46-116); ANION GAP 17 mmol/L (5-15); ASPARTATE AMINO TRANSFERASE 15 U/L (15-37); BILIRUBIN,TOTAL 0.3 MG/DL (0.2-1.0); BLOOD UREA NITROGEN 71 mg/dL (7-18); CARBON DIOXIDE 22 MMOL/L (21-32); CHLORIDE 97 MMOL/L (98-107); CREATININE 8.9 MG/DL (0.55-1.30); POTASSIUM 5.3 MMOL/L (3.5-5.1); SODIUM 136 MMOL/L (136-145)
--- NOTE | 2018-12-24 07:45 | NUR ---
HAND-OFF: Report given to KALEIGH Barrera. Pt is in stable condition; plan of care endorsed.
[2018-12-24 07:55] LABS: BASOPHILS % (AUTO) 1.4 % (0.0-2.0); EOSINOPHILS % (AUTO) 3.9 % (0.0-3.0); HEMATOCRIT 38.9 % (42.0-52.0); HEMOGLOBIN 12.4 G/DL (14.2-18.0); LYMPHOCYTES % (AUTO) 12.9 % (20.0-45.0); MEAN CORPUSCULAR VOLUME 101 FL (80-99); MONOCYTES % (AUTO) 8.3 % (1.0-10.0); NEUTROPHILS % (AUTO) 73.6 % (45.0-75.0); PLATELET COUNT 128 K/UL (150-450); RED BLOOD COUNT 3.86 M/UL (4.70-6.10); RED CELL DISTRIBUTION WIDTH 15.9 % (11.6-14.8); WHITE BLOOD COUNT 6.4 K/UL (4.8-10.8)
[2018-12-24 08:00] VITALS: BP 108/49
[2018-12-24 08:45] LABS: PHOSPHORUS 5.9 MG/DL (2.5-4.9)
[2018-12-24] MEDS: Lisinopril 20mg tab ORAL SCH (09:00)
[2018-12-24] MEDS: Sertraline 50mg tab ORAL SCH (10:03)
[2018-12-24] MEDS: Digoxin 0.125mg tab ORAL SCH (10:04)
[2018-12-24] MEDS: ARIPiprazole 10mg tab ORAL SCH (10:04)
[2018-12-24] MEDS: Heparin 5000 units/ml inj SUBQ SCH ×2 (10:13→20:48)
[2018-12-24 12:00] VITALS: BP 145/87
--- NOTE | 2018-12-24 12:08 | Pulmonology Progress Note ---
Assessment/Plan Problems: (1) Physical debility (2) COPD (chronic obstructive pulmonary disease) (3) ESRF (end stage renal failure) (4) Hyperkalemia (5) Cardiomyopathy (6) Diabetes Assessment/Plan K better after Hd pt/ot pending sliding scale diabetic diet pt doesn't want to go to a rehab facility Subjective ROS Limited/Unobtainable: No Constitutional: Reports: no symptoms HEENT: Repors: no symptoms Allergies: Coded Allergies: No Known Allergies (Verified , 07/21/11) Objective Last 24 Hour Vital Signs Date Time Temp Pulse Resp B/P (MAP) Pulse Ox O2 Delivery O2 Flow Rate FiO2 12/24/18 10:04 82 12/24/18 06:09 108/49 12/24/18 04:00 98.6 86 18 108/49 (68) 98 12/24/18 04:00 84 12/24/18 00:00 79 12/24/18 00:00 98.3 79 18 132/71 (91) 96 12/23/18 21:06 141/93 12/23/18 21:00 Room Air 12/23/18 20:00 93 12/23/18 20:00 98.6 98 18 141/93 (109) 96 12/23/18 17:54 97.5 12/23/18 17:23 78 129/75 12/23/18 16:19 86 12/23/18 16:00 97.5 78 20 129/75 (93) 95 12/23/18 13:35 154/90 Intake and Output 12/23/18 12/24/18 19:00 07:00 Intake Total 240 ml Output Total 150 ml Balance 240 ml -150 ml Intake Oral 240 ml Output Urine Total 150 ml General Appearance: WD/WN HEENT: atraumatic Respiratory/Chest: chest wall non-tender, lungs clear, normal breath sounds Cardiovascular: normal peripheral pulses, normal rate Abdomen: normal bowel sounds, soft, non tender Genitourinary: normal external genitalia Neurologic/Psychiatric: rail layer II-XII grossly normal Lymphatic: no neck adenopathy Microbiology Date/Time Source Procedure Growth Status 12/22/18 18:05 Nasal Nares MRSA Culture - Final NO METHICILLIN RESISTANT STAPH AUREUS... Complete 12/22/18 18:05 Rectum VRE Culture - Final NO VANCOMYCIN RESISTANT ENTEROCOCCUS ... Complete 12/22/18 18:05 Rectum - Final NO CARBAPENEM-RESISTANT ENTEROBACTERI... Complete Laboratory Tests 12/24/18 05:40: White Blood Count 6.4, Red Blood Count 3.86L, Hemoglobin 12.4L, Hematocrit 38.9L , Mean Corpuscular Volume 101H, Mean Corpuscular Hemoglobin 32.0H, Mean Corpuscular Hemoglobin Concent 31.7L, Red Cell Distribution Width 15.9H, Platelet Count 128L, Mean Platelet Volume 7.1, Neutrophils (%) (Auto) 73.6, Lymphocytes (%) (Auto) 12.9L, Monocytes (%) (Auto) 8.3, Eosinophils (%) (Auto) 3.9H, Basophils (%) (Auto) 1.4, Sodium Level 136, Potassium Level 5.3H, Chloride Level 97L, Carbon Dioxide Level 22, Anion Gap 17H, Blood Urea Nitrogen 71H, Creatinine 8.9H, Estimat Glomerular Filtration Rate 7.2, Glucose Level 207H , Uric Acid 5.7, Calcium Level 9.0, Phosphorus Level 5.9H, Magnesium Level 2.2, Total Bilirubin 0.3, Gamma Glutamyl Transpeptidase 58, Aspartate Amino Transf ( AST/SGOT) 15, Alanine Aminotransferase (ALT/SGPT) 22, Alkaline Phosphatase 100, Troponin I 0.048, Pro-B-Type Natriuretic Peptide 21823P, Total Protein 7.2, Albumin 3.0L, Globulin 4.2, Albumin/Globulin Ratio 0.7L, Vitamin B12 Level 659, Digoxin Level 0.4L Current Medications Medications (Trade) Dose Ordered Sig/Divya Route PRN Reason Start Time Stop Time Status Last Admin Dose Admin Acetaminophen (Tylenol) 650 mg Q4H PRN ORAL fever 12/22/18 21:00 01/21/19 20:59 Albuterol/ Ipratropium (Albuterol/ Ipratropium) 3 ml Q6H PRN HHN dyspnea 12/22/18 21:00 12/27/18 20:59 12/22/18 21:25 Aripiprazole (Abilify) 10 mg DAILY ORAL 12/23/18 09:00 01/22/19 08:59 12/24/18 10:04 Clonidine HCl (Catapres Tab) 0.1 mg Q4H PRN ORAL SBP>160 12/22/18 21:00 01/21/19 20:59 Dextrose (Dextrose 50%) 25 ml Q30M PRN IV Hypoglycemia 12/22/18 21:15 01/21/19 21:00 Dextrose (Dextrose 50%) 50 ml Q30M PRN IV hypoglycemia 12/22/18 21:15 01/21/19 21:14 Digoxin (Lanoxin) 0.125 mg DAILY ORAL 12/23/18 09:00 01/22/19 08:59 12/24/18 10:04 Heparin Sodium (Porcine) (Heparin 5000 units/ml) 5,000 units EVERY 12 HOURS SUBQ 12/23/18 09:00 01/22/19 08:59 12/24/18 10:13 Hydralazine HCl (Apresoline) 10 mg Q8HR ORAL 12/22/18 22:00 01/21/19 21:59 12/24/18 06:09 Insulin Aspart (NovoLOG) BEFORE MEALS AND HS SUBQ 12/22/18 21:00 01/21/19 20:59 12/24/18 06:12 Lisinopril (Prinivil) 20 mg DAILY ORAL 12/23/18 09:00 01/22/19 08:59 12/23/18 10:43 Metoprolol Succinate (Toprol XL) 50 mg Q8H ORAL 12/22/18 22:30 01/21/19 22:29 Future Hold Morphine Sulfate (Morphine Sulfate) 1 mg Q4H PRN IVP For Pain 12/22/18 21:00 12/29/18 20:59 12/23/18 17:24 Nifedipine (Procardia XL) 60 mg BID ORAL 12/23/18 18:00 01/22/19 08:59 12/23/18 17:23 Ondansetron HCl (Zofran) 4 mg Q6H PRN IVP Nausea & Vomiting 12/22/18 21:00 01/21/19 20:59 Pantoprazole (Protonix) 40 mg DAILY ORAL 12/23/18 13:15 01/22/19 13:14 12/24/18 10:04 Polyethylene Glycol (Miralax) 17 gm HSPRN PRN ORAL Constipation 12/22/18 21:00 01/21/19 20:59 Sertraline HCl (Zoloft) 25 mg DAILY ORAL 12/23/18 09:00 01/22/19 08:59 12/24/18 10:03 Sevelamer Carbonate (Renvela) 2,400 mg THREE TIMES A DAY ORAL 12/23/18 09:00 01/22/19 08:59 12/24/18 10:04 Zolpidem Tartrate (Ambien) 5 mg HSPRN PRN ORAL Insomnia 12/22/18 21:00 12/29/18 20:59 Luis Miguel Donohue MD Dec 24, 2018 12:08
--- NOTE | 2018-12-24 13:27 | Nephrology Progress Note ---
Assessment/Plan Problem List: (1) ESRF (end stage renal failure) (2) Hyperkalemia (3) Anemia Assessment ESRD, Presents with ALOC and High K Encephalopathy DM HTN Atrial Fib Flutter Plan HD + UF on 1 K bath done this am Keep BP and BS under control Nitro dermal per orders check dig level for high K Subjective ROS Limited/Unobtainable: No Constitutional: Reports: other - feels stronger Objective Objective Last 24 Hour Vital Signs Date Time Temp Pulse Resp B/P (MAP) Pulse Ox O2 Delivery O2 Flow Rate FiO2 12/24/18 10:04 82 12/24/18 06:09 108/49 12/24/18 04:00 98.6 86 18 108/49 (68) 98 12/24/18 04:00 84 12/24/18 00:00 79 12/24/18 00:00 98.3 79 18 132/71 (91) 96 12/23/18 21:06 141/93 12/23/18 21:00 Room Air 12/23/18 20:00 93 12/23/18 20:00 98.6 98 18 141/93 (109) 96 12/23/18 17:54 97.5 12/23/18 17:23 78 129/75 12/23/18 16:19 86 12/23/18 16:00 97.5 78 20 129/75 (93) 95 12/23/18 13:35 154/90 Intake and Output 12/23/18 12/24/18 18:59 06:59 Intake Total 240 ml Output Total 150 ml Balance 240 ml -150 ml Intake Oral 240 ml Output Urine Total 150 ml Laboratory Tests 12/24/18 05:40: White Blood Count 6.4, Red Blood Count 3.86L, Hemoglobin 12.4L, Hematocrit 38.9L , Mean Corpuscular Volume 101H, Mean Corpuscular Hemoglobin 32.0H, Mean Corpuscular Hemoglobin Concent 31.7L, Red Cell Distribution Width 15.9H, Platelet Count 128L, Mean Platelet Volume 7.1, Neutrophils (%) (Auto) 73.6, Lymphocytes (%) (Auto) 12.9L, Monocytes (%) (Auto) 8.3, Eosinophils (%) (Auto) 3.9H, Basophils (%) (Auto) 1.4, Sodium Level 136, Potassium Level 5.3H, Chloride Level 97L, Carbon Dioxide Level 22, Anion Gap 17H, Blood Urea Nitrogen 71H, Creatinine 8.9H, Estimat Glomerular Filtration Rate 7.2, Glucose Level 207H , Uric Acid 5.7, Calcium Level 9.0, Phosphorus Level 5.9H, Magnesium Level 2.2, Total Bilirubin 0.3, Gamma Glutamyl Transpeptidase 58, Aspartate Amino Transf ( AST/SGOT) 15, Alanine Aminotransferase (ALT/SGPT) 22, Alkaline Phosphatase 100, Troponin I 0.048, Pro-B-Type Natriuretic Peptide 67451M, Total Protein 7.2, Albumin 3.0L, Globulin 4.2, Albumin/Globulin Ratio 0.7L, Vitamin B12 Level 659, Digoxin Level 0.4L Height (Feet): 5 Height (Inches): 9.00 Weight (Pounds): 266 Cardiovascular: normal rate Respiratory/Chest: decreased breath sounds Abdomen: soft Objective no change Francisco Javier Abraham MD Dec 24, 2018 13:27
[2018-12-24 16:00] VITALS: BP 127/69
--- NOTE | 2018-12-24 18:10 | NUR ---
NURSE NOTES: Patient transferred to unit via bed. Received report from Holly FARRIS. Belongings checked at bedside. LFA IV intact. Dressing over right AV fistula c/d/i. Skin is intact, dryness and scabs noted on bilateral legs. Fall precautions maintained. Side rails upx3, bed low and locked, call light in reach, bed alarm armed. Will continue to monitor.
--- NOTE | 2018-12-24 18:18 | NUR ---
Transferred patient to . repot given to Stacey FARRIS
[2018-12-24] MEDS ORDERED: Albuterol/Ipratropium 3ml neb HHN PRN (18:45)
[2018-12-24] MEDS ORDERED: Miralax 17gm pkt ORAL PRN (18:45)
--- NOTE | 2018-12-24 19:37 | NUR ---
HAND-OFF: Report given to Kenn FARRIS. Patient is in stable condition.
--- NOTE | 2018-12-24 19:45 | NUR ---
NURSE NOTES: Received pt lying in bed, AOX4, denies pain, no distress noted. IV R FA patent and intact. R upper arm AV fistula with good bruit and thrill. Bed in lowest position, locked, bed alarm on, side rails up x 2, call light within reach. Will continue to monitor.
[2018-12-24 20:00] VITALS: BP 152/78
[2018-12-24] MEDS: Metoprolol 25mg tab ORAL SCH (20:42)
[2018-12-24] MEDS ORDERED: Zolpidem 5mg tab ORAL PRN (21:00)
[2018-12-24] MEDS: Morphine Sulfate 2mg/ml Inj(IV/IM USE ONLY) IVP PRN (22:13)
[2018-12-25] VITALS: BP 144/73
[2018-12-25 04:00] VITALS: BP 146/75
[2018-12-25] MEDS: Morphine Sulfate 2mg/ml Inj(IV/IM USE ONLY) IVP PRN ×4 (04:55→20:49)
[2018-12-25] MEDS: HydrALAZINE 10mg Tab ORAL SCH ×3 (05:35→23:01)
[2018-12-25] MEDS: NovoLOG Insulin Flexpen SUBQ SCH ×4 (06:04→20:56)
[2018-12-25 06:36] LABS: BASOPHILS % (AUTO) 0.7 % (0.0-2.0); EOSINOPHILS % (AUTO) 2.7 % (0.0-3.0); HEMATOCRIT 39.8 % (42.0-52.0); HEMOGLOBIN 12.9 G/DL (14.2-18.0); LYMPHOCYTES % (AUTO) 14.6 % (20.0-45.0); MEAN CORPUSCULAR VOLUME 101 FL (80-99); MONOCYTES % (AUTO) 11.4 % (1.0-10.0); NEUTROPHILS % (AUTO) 70.6 % (45.0-75.0); PLATELET COUNT 131 K/UL (150-450); RED BLOOD COUNT 3.96 M/UL (4.70-6.10); RED CELL DISTRIBUTION WIDTH 15.9 % (11.6-14.8); WHITE BLOOD COUNT 6.8 K/UL (4.8-10.8)
--- NOTE | 2018-12-25 07:25 | NUR ---
NURSE NOTES: WALKING ROUNDS DONE WITH OUTGOING RN. PATIENT AWAKE IN BED HAVING BREAKFAST. DISCUSSED PLAN OF CARE FOR THE DAY. QUESTIONS ANSWERED. NEEDS MET.DENIES PAIN AT THIS TIME. CALL LIGHT AND PERSONAL ITEMS WITHIN REACH. SR UP AND BED IN LOW AND LOCKED POSITION.
--- NOTE | 2018-12-25 07:30 | NUR ---
HAND-OFF: Report given to KALEIGH Sandoval. Pt in stable condition.
[2018-12-25 07:33] LABS: ALANINE AMINOTRANSFERASE 21 U/L (12-78); ALBUMIN 3.1 G/DL (3.4-5.0); ALBUMIN/GLOBULIN RATIO 0.7 (1.0-2.7); ALKALINE PHOSPHATASE 105 U/L (46-116); ANION GAP 13 mmol/L (5-15); ASPARTATE AMINO TRANSFERASE 12 U/L (15-37); BILIRUBIN,TOTAL 0.3 MG/DL (0.2-1.0); BLOOD UREA NITROGEN 67 mg/dL (7-18); CALCIUM 9.1 MG/DL (8.5-10.1); CARBON DIOXIDE 23 MMOL/L (21-32); CHLORIDE 99 MMOL/L (98-107); CREATININE 8.5 MG/DL (0.55-1.30); PHOSPHORUS 5.1 MG/DL (2.5-4.9); POTASSIUM 5.5 MMOL/L (3.5-5.1); SODIUM 135 MMOL/L (136-145)
[2018-12-25 08:00] VITALS: BP 140/79
[2018-12-25] MEDS: Heparin 5000 units/ml inj SUBQ SCH ×2 (09:00→21:00)
[2018-12-25] MEDS: Sertraline 50mg tab ORAL SCH (09:10)
[2018-12-25] MEDS: ARIPiprazole 10mg tab ORAL SCH (09:11)
[2018-12-25] MEDS: Metoprolol 25mg tab ORAL SCH ×2 (09:11→20:49)
[2018-12-25] MEDS: Digoxin 0.125mg tab ORAL SCH (09:11)
[2018-12-25] MEDS: Lisinopril 20mg tab ORAL SCH (09:11)
--- NOTE | 2018-12-25 09:45 | NUR ---
PT EVALUATION NOTE Patient seen for initial evaluation, see complete evaluation for details. Patient presents with generalized weakness and pain with impaired functional mobility. Patient will benefit from skilled inpatient PT intervention to address strength, balance, safety and functional mobility. Recommend discharge short term SNF vs ARU for further rehab once cleared by MD. Further DME needs to bed determined based on discharge disposition and patient progress. Addendum: 12/25/18 at 1311 by VINNIE BERMAN PT Amended: Links added.
[2018-12-25 12:00] VITALS: BP 137/70
--- NOTE | 2018-12-25 12:01 | Pulmonology Progress Note ---
Assessment/Plan Problems: (1) Physical debility (2) COPD (chronic obstructive pulmonary disease) (3) ESRF (end stage renal failure) (4) Hyperkalemia (5) Cardiomyopathy (6) Diabetes Assessment/Plan c/o left knee pain, XR ordred K better after Hd dialyzed yesterday pt/ot pending sliding scale diabetic diet pt doesn't want to go to a rehab facility Subjective ROS Limited/Unobtainable: No Constitutional: Reports: no symptoms HEENT: Repors: no symptoms Respiratory: Reports: no symptoms Allergies: Coded Allergies: No Known Allergies (Verified , 07/21/11) Objective Last 24 Hour Vital Signs Date Time Temp Pulse Resp B/P (MAP) Pulse Ox O2 Delivery O2 Flow Rate FiO2 12/25/18 09:54 97.5 12/25/18 09:11 77 140/79 12/25/18 09:11 140/79 12/25/18 09:11 77 12/25/18 09:10 77 140/79 12/25/18 09:00 Room Air 12/25/18 08:00 97.5 77 18 140/79 (99) 94 12/25/18 05:35 146/75 12/25/18 04:00 98.6 98 18 146/75 (98) 95 12/25/18 00:00 98.7 81 19 144/73 (96) 96 12/24/18 22:19 149/80 12/24/18 21:00 Room Air 12/24/18 20:42 102 152/78 12/24/18 20:00 98.6 102 19 152/78 (102) 96 12/24/18 17:27 76 127/69 12/24/18 16:00 79 12/24/18 16:00 97.5 76 22 127/69 (88) 98 12/24/18 14:21 145/87 Intake and Output 12/24/18 12/25/18 19:00 07:00 Output Total 2800 ml Balance -2800 ml Hemodialysis UF 2800 ml # Voids 1 General Appearance: WD/WN HEENT: normocephalic, atraumatic Respiratory/Chest: chest wall non-tender, lungs clear Cardiovascular: normal peripheral pulses, normal rate Abdomen: normal bowel sounds, no organomegaly Genitourinary: normal external genitalia Skin: no lesions Neurologic/Psychiatric: manager division II-XII grossly normal Microbiology Date/Time Source Procedure Growth Status 12/22/18 22:00 Nasal Nares MRSA Culture - Final NO METHICILLIN RESISTANT STAPH AUREUS... Complete 12/22/18 18:05 Nasal Nares MRSA Culture - Final NO METHICILLIN RESISTANT STAPH AUREUS... Complete 12/22/18 22:00 Rectum VRE Culture - Final NO VANCOMYCIN RESISTANT ENTEROCOCCUS ... Complete 12/22/18 18:05 Rectum VRE Culture - Final NO VANCOMYCIN RESISTANT ENTEROCOCCUS ... Complete 12/22/18 18:05 Rectum - Final NO CARBAPENEM-RESISTANT ENTEROBACTERI... Complete Laboratory Tests 12/25/18 04:45: White Blood Count 6.8, Red Blood Count 3.96L, Hemoglobin 12.9L, Hematocrit 39.8L , Mean Corpuscular Volume 101H, Mean Corpuscular Hemoglobin 32.6H, Mean Corpuscular Hemoglobin Concent 32.3, Red Cell Distribution Width 15.9H, Platelet Count 131L, Mean Platelet Volume 8.7, Neutrophils (%) (Auto) 70.6, Lymphocytes (%) (Auto) 14.6L, Monocytes (%) (Auto) 11.4H, Eosinophils (%) (Auto ) 2.7, Basophils (%) (Auto) 0.7, Sodium Level 135L, Potassium Level 5.5H, Chloride Level 99, Carbon Dioxide Level 23, Anion Gap 13, Blood Urea Nitrogen 67H, Creatinine 8.5H, Estimat Glomerular Filtration Rate 7.6, Glucose Level 154H , Uric Acid 4.5, Calcium Level 9.1, Phosphorus Level 5.1H, Total Bilirubin 0.3, Aspartate Amino Transf (AST/SGOT) 12L, Alanine Aminotransferase (ALT/SGPT) 21, Alkaline Phosphatase 105, Troponin I 0.030, C-Reactive Protein, Quantitative 7.6H, Pro-B-Type Natriuretic Peptide 47117F, Total Protein 7.4, Albumin 3.1L, Globulin 4.3, Albumin/Globulin Ratio 0.7L Current Medications Medications (Trade) Dose Ordered Sig/Divya Route PRN Reason Start Time Stop Time Status Last Admin Dose Admin Acetaminophen (Tylenol) 650 mg Q4H PRN ORAL fever (temp>100.5F) 12/24/18 21:00 01/21/19 20:59 Albuterol/ Ipratropium (Albuterol/ Ipratropium) 3 ml Q6H PRN HHN dyspnea 12/24/18 18:45 12/27/18 18:44 Aripiprazole (Abilify) 10 mg DAILY ORAL 12/25/18 09:00 01/22/19 08:59 12/25/18 09:11 Clonidine HCl (Catapres Tab) 0.1 mg Q4H PRN ORAL SBP>160 12/24/18 18:45 01/21/19 18:44 Dextrose (Dextrose 50%) 25 ml Q30M PRN IV Hypoglycemia 12/24/18 18:45 01/21/19 21:00 Dextrose (Dextrose 50%) 50 ml Q30M PRN IV hypoglycemia 12/24/18 18:45 01/21/19 21:14 Digoxin (Lanoxin) 0.125 mg DAILY ORAL 12/25/18 09:00 01/22/19 08:59 12/25/18 09:11 Heparin Sodium (Porcine) (Heparin 5000 units/ml) 5,000 units EVERY 12 HOURS SUBQ 12/24/18 21:00 01/22/19 08:59 Hydralazine HCl (Apresoline) 10 mg Q8HR ORAL 12/24/18 22:00 01/21/19 21:59 12/25/18 05:35 Insulin Aspart (NovoLOG) BEFORE MEALS AND HS SUBQ 12/24/18 21:00 01/21/19 20:59 12/25/18 11:29 Lisinopril (Prinivil) 20 mg DAILY ORAL 12/25/18 09:00 01/22/19 08:59 12/25/18 09:11 Metoprolol Tartrate (Lopressor) 25 mg Q12HR ORAL 12/24/18 21:00 01/23/19 20:59 12/25/18 09:11 Morphine Sulfate (Morphine Sulfate) 1 mg Q4H PRN IVP For Pain 12/24/18 18:45 12/29/18 18:44 12/25/18 09:24 Nifedipine (Procardia XL) 60 mg BID ORAL 12/25/18 09:00 01/22/19 08:59 12/25/18 09:10 Ondansetron HCl (Zofran) 4 mg Q6H PRN IVP Nausea & Vomiting 12/24/18 18:45 01/21/19 18:44 Pantoprazole (Protonix) 40 mg DAILY ORAL 12/25/18 09:00 01/22/19 13:14 12/25/18 09:10 Polyethylene Glycol (Miralax) 17 gm HSPRN PRN ORAL Constipation 12/24/18 18:45 01/21/19 18:44 Sertraline HCl (Zoloft) 25 mg DAILY ORAL 12/25/18 09:00 01/22/19 08:59 12/25/18 09:10 Sevelamer Carbonate (Renvela) 2,400 mg THREE TIMES A DAY ORAL 12/25/18 09:00 01/22/19 08:59 12/25/18 09:10 Zolpidem Tartrate (Ambien) 5 mg HSPRN PRN ORAL Insomnia 12/24/18 21:00 12/29/18 20:59 Luis Miguel Donohue MD Dec 25, 2018 12:01
--- NOTE | 2018-12-25 13:34 | NUR ---
CASE MANAGEMENT:REVIEW 12/25/18 SI: COPD. ESRD ON HD 97.7 74 18 137/70 96% ON RA H/H-12.9/39.8 K+5.5 BUN+67 CR+8.5 IS: digoxin po qd lisinopril po qd procardia xl po bid zoloft po qd hydralazine po q8hrs lopressor po q12 : med/surg status 3 east dcp: patient is from home
--- NOTE | 2018-12-25 14:27 | Diagnostic Imaging Report ---
Indication: Left knee pain Technique: 3 views of the left knee Comparison: None Findings: There is degenerative narrowing of the medial joint compartment as well as small osteophytes. The lateral joint space is preserved. No acute fractures. No dislocations. No suprapatellar effusion. There are vascular calcifications Impression: Degenerative changes as described. No acute bony trauma
--- NOTE | 2018-12-25 15:06 | Nephrology Progress Note ---
Assessment/Plan Problem List: (1) ESRF (end stage renal failure) (2) Hyperkalemia (3) Anemia (4) Diabetes Assessment: HgA1c 8.6 Assessment ESRD, Presents with ALOC and High K Encephalopathy DM HTN Atrial Fib Flutter Plan HD + UF on 1 K bath done 12/24 next 12/26 Keep BP and BS under control Nitro dermal per orders check dig levelperiodically Subjective ROS Limited/Unobtainable: No Constitutional: Reports: other - feels better Objective Objective Last 24 Hour Vital Signs Date Time Temp Pulse Resp B/P (MAP) Pulse Ox O2 Delivery O2 Flow Rate FiO2 12/25/18 12:00 97.7 74 18 137/70 (92) 96 12/25/18 09:54 97.5 12/25/18 09:11 77 140/79 12/25/18 09:11 140/79 12/25/18 09:11 77 12/25/18 09:10 77 140/79 12/25/18 09:00 Room Air 12/25/18 08:00 97.5 77 18 140/79 (99) 94 12/25/18 05:35 146/75 12/25/18 04:00 98.6 98 18 146/75 (98) 95 12/25/18 00:00 98.7 81 19 144/73 (96) 96 12/24/18 22:19 149/80 12/24/18 21:00 Room Air 12/24/18 20:42 102 152/78 12/24/18 20:00 98.6 102 19 152/78 (102) 96 12/24/18 17:27 76 127/69 12/24/18 16:00 79 12/24/18 16:00 97.5 76 22 127/69 (88) 98 Intake and Output 12/24/18 12/25/18 19:00 07:00 Output Total 2800 ml Balance -2800 ml Hemodialysis UF 2800 ml # Voids 1 Laboratory Tests 12/25/18 04:45: White Blood Count 6.8, Red Blood Count 3.96L, Hemoglobin 12.9L, Hematocrit 39.8L , Mean Corpuscular Volume 101H, Mean Corpuscular Hemoglobin 32.6H, Mean Corpuscular Hemoglobin Concent 32.3, Red Cell Distribution Width 15.9H, Platelet Count 131L, Mean Platelet Volume 8.7, Neutrophils (%) (Auto) 70.6, Lymphocytes (%) (Auto) 14.6L, Monocytes (%) (Auto) 11.4H, Eosinophils (%) (Auto ) 2.7, Basophils (%) (Auto) 0.7, Sodium Level 135L, Potassium Level 5.5H, Chloride Level 99, Carbon Dioxide Level 23, Anion Gap 13, Blood Urea Nitrogen 67H, Creatinine 8.5H, Estimat Glomerular Filtration Rate 7.6, Glucose Level 154H , Uric Acid 4.5, Calcium Level 9.1, Phosphorus Level 5.1H, Total Bilirubin 0.3, Aspartate Amino Transf (AST/SGOT) 12L, Alanine Aminotransferase (ALT/SGPT) 21, Alkaline Phosphatase 105, Troponin I 0.030, C-Reactive Protein, Quantitative 7.6H, Pro-B-Type Natriuretic Peptide 88088Z, Total Protein 7.4, Albumin 3.1L, Globulin 4.3, Albumin/Globulin Ratio 0.7L Height (Feet): 5 Height (Inches): 9.00 Weight (Pounds): 244 General Appearance: no apparent distress Cardiovascular: normal rate Respiratory/Chest: decreased breath sounds Abdomen: distended Objective no change Francisco Javier Abraham MD Dec 25, 2018 15:06
[2018-12-25 16:00] VITALS: BP 136/69
--- NOTE | 2018-12-25 17:00 | NUR ---
NURSE NOTES: PLACED CALL TO [facility]. AWAITING RETURN CALL FROM ON-CALL NURSE.
--- NOTE | 2018-12-25 19:30 | NUR ---
HAND-OFF: Report given to IGGY LIMON RN.
--- NOTE | 2018-12-25 19:40 | NUR ---
NURSE NOTES: PLACED ANOTHER CALL [facility]. SP[MACEY WITH [facility]. PER [facility] AWARE OF DIALYSIS ORDER TOMORROW. STATES HE WILL BE HERE TOMORROW. INFO ENDORSED TO ONCOMING RN.
[2018-12-25 20:00] VITALS: BP 153/78
--- NOTE | 2018-12-25 20:00 | NUR ---
NURSE NOTES: Patient received in bed, awake, NAD. IV is intact and patent. Call light in reach, will continue to monitor.
[2018-12-26] VITALS: BP 154/95
[2018-12-26 04:00] VITALS: BP 130/67
[2018-12-26] MEDS: Morphine Sulfate 2mg/ml Inj(IV/IM USE ONLY) IVP PRN (04:50)
[2018-12-26] MEDS: HydrALAZINE 10mg Tab ORAL SCH ×2 (06:00→14:00)
[2018-12-26] MEDS: NovoLOG Insulin Flexpen SUBQ SCH ×3 (06:39→17:07)
--- NOTE | 2018-12-26 07:30 | NUR ---
NURSE NOTES: WALKING ROUNDS DONE WITH OUTGOING RN. PATIENT AWAKE AT BEDSIDE. QUESTIONS ANSWERED NEEDS MET. PATIENT WILL RECEIVE HD TODAY AND AWARE. CALL LIGHT WITHIN REACH. ALL PERSONAL BELONGINGS IN ARMS REACH.
--- NOTE | 2018-12-26 07:37 | NUR ---
HAND-OFF: Report given to Lori FARRIS.
[2018-12-26 08:00] VITALS: BP 132/66
[2018-12-26] MEDS: Metoprolol 25mg tab ORAL SCH (09:00)
[2018-12-26] MEDS: Heparin 5000 units/ml inj SUBQ SCH (09:00)
[2018-12-26] MEDS: Lisinopril 20mg tab ORAL SCH (09:00)
--- NOTE | 2018-12-26 11:00 | NUR ---
NURSE NOTES: PATIENT COMPLETED DIALYSIS TREATMENT. AOX4. IN BED. BED IN LOW AND LOCKED POSITION. CALL LIGHT WITHIN REACH.
[2018-12-26 12:00] VITALS: BP 100/55
[2018-12-26] MEDS: Digoxin 0.125mg tab ORAL SCH (12:40)
[2018-12-26] MEDS: ARIPiprazole 10mg tab ORAL SCH (12:40)
[2018-12-26] MEDS: Sertraline 50mg tab ORAL SCH (12:40)
--- NOTE | 2018-12-26 13:37 | Pulmonology Progress Note ---
Assessment/Plan Problems: (1) Physical debility (2) COPD (chronic obstructive pulmonary disease) (3) ESRF (end stage renal failure) (4) Hyperkalemia (5) Cardiomyopathy (6) Diabetes Assessment/Plan c/o left knee pain, XR ordred, no fractures K better after Hd dialyzed yesterday pt/ot pending sliding scale diabetic diet pt doesn't want to go to a rehab facility\ dc home today Subjective ROS Limited/Unobtainable: No Constitutional: Reports: no symptoms HEENT: Repors: no symptoms Allergies: Coded Allergies: No Known Allergies (Verified , 07/21/11) Objective Last 24 Hour Vital Signs Date Time Temp Pulse Resp B/P (MAP) Pulse Ox O2 Delivery O2 Flow Rate FiO2 12/26/18 12:40 82 12/26/18 12:00 97.9 82 20 100/55 (70) 95 12/26/18 09:00 Room Air 12/26/18 09:00 79 132/66 12/26/18 09:00 79 132/66 12/26/18 09:00 132/66 12/26/18 08:43 79 18 Room Air 21 12/26/18 08:00 97.4 70 19 132/66 (88) 95 12/26/18 06:00 130/67 12/26/18 05:20 98.6 12/26/18 04:00 98.9 71 18 130/67 (88) 94 12/26/18 00:00 98.6 75 18 154/95 (114) 96 12/25/18 23:01 160/80 12/25/18 21:00 Room Air 12/25/18 20:49 77 153/78 12/25/18 20:30 77 18 Room Air 21 12/25/18 20:00 97.6 76 18 153/78 (103) 94 12/25/18 17:50 75 136/69 12/25/18 16:00 97.7 75 18 136/69 (91) 97 12/25/18 15:34 137/70 Intake and Output 12/25/18 12/26/18 19:00 07:00 Intake Total 480 ml Output Total 100 ml Balance 480 ml -100 ml Intake Oral 480 ml Output Urine Total 100 ml General Appearance: WD/WN, no acute distress HEENT: normocephalic Respiratory/Chest: chest wall non-tender, lungs clear Cardiovascular: normal peripheral pulses, normal rate Abdomen: normal bowel sounds, soft, non tender Extremities: no cyanosis Skin: no rash, no lesions Current Medications Medications (Trade) Dose Ordered Sig/Divya Route PRN Reason Start Time Stop Time Status Last Admin Dose Admin Acetaminophen (Tylenol) 650 mg Q4H PRN ORAL fever (temp>100.5F) 12/24/18 21:00 01/21/19 20:59 Albuterol/ Ipratropium (Albuterol/ Ipratropium) 3 ml Q6H PRN HHN dyspnea 12/24/18 18:45 12/27/18 18:44 Aripiprazole (Abilify) 10 mg DAILY ORAL 12/25/18 09:00 01/22/19 08:59 12/26/18 12:40 Clonidine HCl (Catapres Tab) 0.1 mg Q4H PRN ORAL SBP>160 12/24/18 18:45 01/21/19 18:44 Dextrose (Dextrose 50%) 25 ml Q30M PRN IV Hypoglycemia 12/24/18 18:45 01/21/19 21:00 Dextrose (Dextrose 50%) 50 ml Q30M PRN IV hypoglycemia 12/24/18 18:45 01/21/19 21:14 Digoxin (Lanoxin) 0.125 mg DAILY ORAL 12/25/18 09:00 01/22/19 08:59 12/26/18 12:40 Heparin Sodium (Porcine) (Heparin 5000 units/ml) 5,000 units EVERY 12 HOURS SUBQ 12/24/18 21:00 01/22/19 08:59 Hydralazine HCl (Apresoline) 10 mg Q8HR ORAL 12/24/18 22:00 01/21/19 21:59 12/25/18 23:01 Insulin Aspart (NovoLOG) BEFORE MEALS AND HS SUBQ 12/24/18 21:00 01/21/19 20:59 12/26/18 06:39 Lisinopril (Prinivil) 20 mg DAILY ORAL 12/25/18 09:00 01/22/19 08:59 12/25/18 09:11 Metoprolol Tartrate (Lopressor) 25 mg Q12HR ORAL 12/24/18 21:00 01/23/19 20:59 12/25/18 20:49 Morphine Sulfate (Morphine Sulfate) 1 mg Q4H PRN IVP For Pain 12/24/18 18:45 12/29/18 18:44 12/26/18 04:50 Nifedipine (Procardia XL) 60 mg BID ORAL 12/25/18 09:00 01/22/19 08:59 12/25/18 17:50 Ondansetron HCl (Zofran) 4 mg Q6H PRN IVP Nausea & Vomiting 12/24/18 18:45 01/21/19 18:44 Pantoprazole (Protonix) 40 mg DAILY ORAL 12/25/18 09:00 01/22/19 13:14 12/26/18 12:40 Polyethylene Glycol (Miralax) 17 gm HSPRN PRN ORAL Constipation 12/24/18 18:45 01/21/19 18:44 Sertraline HCl (Zoloft) 25 mg DAILY ORAL 12/25/18 09:00 01/22/19 08:59 12/26/18 12:40 Sevelamer Carbonate (Renvela) 2,400 mg THREE TIMES A DAY ORAL 12/25/18 09:00 01/22/19 08:59 12/26/18 12:40 Zolpidem Tartrate (Ambien) 5 mg HSPRN PRN ORAL Insomnia 12/24/18 21:00 12/29/18 20:59 Lius Miguel Donohue MD Dec 26, 2018 13:37
--- NOTE | 2018-12-26 13:51 | NUR ---
RD ASSESSMENT & RECOMMENDATIONS SEE CARE ACTIVITY FOR COMPLETE ASSESSMENT DAILY ESTIMATED NEEDS: Needs based on ESRD on HD, 84kg adj 25-30 kcals/kg 6583-7440 total kcals 1.2-1.8 g protein/kg 101-151 g total protein Fluid per MD, on HD NUTRITION DIAGNOSIS: Increased kcal and protein needs r/t renal dysfunction as evidenced by pt w/ ESRD on HD Altered nutrition related lab values r/t DM as evidenced by A1C 8.6 PO DIET RECOMMENDATIONS: RENAL/ CCHO MED (texture per [employer]OR [employer]REATER) ADDITIONAL RECOMMENDATIONS: 1) Obtain a calibrated bed scale wt; standing preferred 2) Nephrovite x1 daily 3) HIGH PROTEIN SNACKS BID in b/w meal s 4) D[employer]REATER eval for appropriate texture for improved po intake Pt was previously on puree texture diet .
--- NOTE | 2018-12-26 14:46 | Nephrology Progress Note ---
Assessment/Plan Problem List: (1) ESRF (end stage renal failure) (2) Hyperkalemia (3) Anemia (4) Diabetes Assessment: HgA1c 8.6 Assessment ESRD, Presents with ALOC and High K Encephalopathy DM HTN Atrial Fib Flutter Plan HD + UF on 1 K bath done 12/26 next 12/29 Keep BP and BS under control Nitro dermal per orders check dig level periodically Subjective ROS Limited/Unobtainable: No Objective Objective Last 24 Hour Vital Signs Date Time Temp Pulse Resp B/P (MAP) Pulse Ox O2 Delivery O2 Flow Rate FiO2 12/26/18 12:40 82 12/26/18 12:00 97.9 82 20 100/55 (70) 95 12/26/18 09:00 Room Air 12/26/18 09:00 79 132/66 12/26/18 09:00 79 132/66 12/26/18 09:00 132/66 12/26/18 08:43 79 18 Room Air 21 12/26/18 08:00 97.4 70 19 132/66 (88) 95 12/26/18 06:00 130/67 12/26/18 05:20 98.6 12/26/18 04:00 98.9 71 18 130/67 (88) 94 12/26/18 00:00 98.6 75 18 154/95 (114) 96 12/25/18 23:01 160/80 12/25/18 21:00 Room Air 12/25/18 20:49 77 153/78 12/25/18 20:30 77 18 Room Air 21 12/25/18 20:00 97.6 76 18 153/78 (103) 94 12/25/18 17:50 75 136/69 12/25/18 16:00 97.7 75 18 136/69 (91) 97 12/25/18 15:34 137/70 Intake and Output 12/25/18 12/26/18 19:00 07:00 Intake Total 480 ml Output Total 100 ml Balance 480 ml -100 ml Intake Oral 480 ml Output Urine Total 100 ml Height (Feet): 5 Height (Inches): 9.00 Weight (Pounds): 244 General Appearance: no apparent distress Cardiovascular: normal rate Respiratory/Chest: lungs clear Abdomen: soft Objective no change Francisco Javier Abraham MD Dec 26, 2018 14:46
[2018-12-26 16:00] VITALS: BP 122/69
--- NOTE | 2018-12-26 18:15 | NUR ---
NURSE NOTES: PATIENT READY FOR DISCHARGE. SPOUSE AT BEDSIDE. DC INSTRUCTIONS REVIEWED AND EXPLAINED TO PATIENT AND . PATIENT EDUCATION FOR RENAL DIET GIVEN. QUESTIONS ANSWERED. VERBALIZED UNDERSTANDING OF INSTRUCTIONS. PATIENT/ WILL F/U WITH RENAL DOCTOR FOR FURTHER DIALYSIS SCHEDULING.
--- NOTE | 2018-12-29 12:13 | Discharge Summary ---
Discharge Summary Discharge Summary _ DATE OF ADMISSION: 12/22/2018 DATE OF DISCHARGE: 12/26/2018 DISCHARGED BY: Dr. Donohue REASON FOR ADMISSION: 68 years old male with history of diabetes mellitus, atrial fibrillation, end- stage renal disease , on hemodialysis, presented to emergency department with chief complaint of increased weakness and inability to walk due to recent mechanical fall. Patient presented with altered level of consciousness and high potassium. Patient lives with his who takes care of him. Upon evaluation vital signs were stable. Laboratory workup revealed no leukocytosis, stable hemoglobin and hematocrit. Chemistry revealed severe hyperkalemia with potassium 7.6. BUN 72, creatinine 8.2, consistent with known history of end-stage renal disease. Troponin - 0.045. Pro BNP 26106. ECG revealed atrial flutter with variable AV block with premature ventricular or aberrantly conducted complexes. Nonspecific intraventricular block. Patient admitted for further management. CONSULTANTS: licensed staff mft Dr. Abraham HOSPITAL COURSE: Patient initially admitted to monitored bed. Hyperkalemia was treated. Supplemental oxygen provided as needed to keep pulse oximetry above 92%. Pulmonary toilet provided as needed. Repeated troponin was negative. DVT prophylaxis provided. Antitussive provided as needed. Hemodialysis was arranged as per licensed staff mft with close monitoring of volumes and cardiorenal parameters. Electrolytes were further corrected as needed. Patient undergone left knee x-ray due to recent mechanical fall at home. X-ray of the left knee revealed degenerative changes, no acute bony trauma. Blood sugar was managed with sliding scale of insulin. DVT and GI prophylaxis provided. Home medication resumed. Blood pressure was managed with multiply antihypertensive medications, including hydralazine, KAYLA inhibito, r beta-destiny, and clonidine as needed was on board as well. Supportive care provided. Bowel regimen instituted. Pain management was addressed as needed. 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 Lipid panel was stable. TSH within normal limits. Patient was working with physical therapy. Fall precautions were maintained. Patient clinically stabilized and was ready for discharge home. FINAL DIAGNOSES: Hyperkalemia-resolved Encephalopathy End-stage renal disease, on hemodialysis Hypertension Atrial fibrillation/flutter COPD Physical debility Diabetes mellitus DISCHARGE MEDICATIONS: See Medication Reconciliation list. DISCHARGE INSTRUCTIONS: Patient was discharged home . Follow up with primary care provider in one week. I have been assigned to dictate discharge summary for this account. I was not involved in the patient's management. Eliana Milner NP Dec 29, 2018 12:13
== END 2018-12-26 18:11 | disposition home or self-care (01) | DRG 640 ==
LOC: EDBD 16:31 → EMR 17:00 → 2E 18:07 → EDBEDREQ 21:30 → 3E 12-24 18:34
PROC: 5A1D70Z Performance of Urinary Filtration, Intermittent, Less than 6 Hours Per Day (ICD-10-PCS; principal; 2018-12-24)
DX: E87.5 Hyperkalemia (principal); N18.6 End stage renal disease; I12.0 Hypertensive chronic kidney disease with stage 5 chronic kidney disease or end stage renal disease; I42.9 Cardiomyopathy, unspecified; G93.40 Encephalopathy, unspecified; I48.92 Unspecified atrial flutter; Z99.2 Dependence on renal dialysis; J44.9 Chronic obstructive pulmonary disease, unspecified; I12.9 Hypertensive chronic kidney disease with stage 1 through stage 4 chronic kidney disease, or unspecified chronic kidney disease; E11.22 Type 2 diabetes mellitus with diabetic chronic kidney disease; R53.81 Other malaise; I48.91 Unspecified atrial fibrillation
CPT/HCPCS: 36415; 71045; 80053; 80061; 80162; 82607; 82962; 82977; 83036; 83735; 83880; 84100; 84443; 84484; 84550; 85025; 85610; 86140; 87081; 93005; 94640; 94664; 96374; 99291; J1815; J7620

== ENCOUNTER 2019-03-13 17:00 | Inpatient (IN) | payer MEDICARE, MEDICAID ==
[~2019-03-13] VITALS: Ht 175.3 cm; Wt 90.7 kg
[~2019-03-13 17:00] MED LIST changes: +COZAAR100 MG ORAL
--- NOTE | 2019-03-13 17:05 | NUR ---
ED Nurse Note: Pt BIBA from home due to weakness x 6 hours, fell on his L knee b/c weakness. No head trauma, no LOC. Pt has dialysis on T--Sat, R thigh fistula. Upon arrival, SOB noted, 93% RA. NC given to pt per ERMD verbal order. Pain 8/10 mirtha. AOx4, other VSS. Will cont to monitor.
[2019-03-13] MEDS ORDERED: dilTIAZem HCl 25mg/5ml Inj IVP ONE ×2 (17:15→18:15)
[2019-03-13] MEDS ORDERED: Solu-MEDROL 125mg Inj IVP ONE (17:15)
--- NOTE | 2019-03-13 17:27 | Emergency Room Report ---
History of Present Illness General Chief Complaint: Generalized Weakness Source: Medical Record Present Illness HPI Patient is a 69 year old male brought in by ems after a fall and increased generalized weakness. Patient had prior hx of ESRD on dialysis every Sat . He had dialysis one day prior to arrival. Patient denies loss of consciousness. He reports injury to right hand, left knee and left ankle. He had recently been started on antibiotics for ear infection. He had prior history of atrial fibrillation. He had been feeling weak throughout the day. He was noted to have increased shortness of breath. Allergies: Coded Allergies: No Known Allergies (Verified , 07/21/11) Patient History Past Medical History: see triage record Reviewed Nursing Documentation: PMH: Agreed; PSxH: Agreed Nursing Documentation-PMH Hx Cardiac Problems: Yes Hx Hypertension: Yes Hx Pacemaker: Yes - Left upper chest Hx Asthma: Yes - PNA Hx COPD: Yes Hx Diabetes: Yes Hx Cancer: No Hx Gastrointestinal Problems: Yes Hx Dialysis: No - POOR KIDNEY FUNCTION Hx Neurological Problems: Yes Hx Cerebrovascular Accident: Yes Hx Headaches: Yes Hx Weakness: Yes - lower extreities Review of Systems All Other Systems: negative except mentioned in HPI Physical Exam Vital Signs Date Time Temp Pulse Resp B/P (MAP) Pulse Ox O2 Delivery O2 Flow Rate FiO2 03/13/19 16:56 98.8 78 25 98/51 (67) 98 Room Air General Appearance: alert, GCS 15, moderate distress, Chronically Ill ENT: normal ENT inspection, hearing grossly normal Neck: supple Respiratory: lungs clear, speaking full sentences Cardiovascular #1: no edema, tachycardia, irregularly irregular Gastrointestinal: normal inspection, soft Musculoskeletal: swelling - right hand no deformity, abrasion, slight swelling to left ankle and right knee Neurologic: alert, responsive, supervisor loading III-XII nml as tested Skin: normal inspection, normal color Medical Decision Making Diagnostic Impression: Primary Impression: ESRF (end stage renal failure) Additional Impressions: Atrial fibrillation with RVR COPD (chronic obstructive pulmonary disease) ER Course Patient presented for increased generalized weakness. Differential diagnosis include was not limited to hypoglycemia, myocardial infarction, electrolyte abnormality among others. Because of complexity of patient's case laboratory testing and imaging studies were ordered. Patient was noted to have recent fall and rapid heartbeat. EKG interpreted by me showed atrial fibrillation with a rate of [address] or T wave changes. Patient was given IV diltiazem. He was noted to have improvement in heart rate after repeat dosage. Difficulty with breathing seemed to improve after rate control. Patient was noted to have laboratory testing with normal potassium and mildly elevated white blood count. This may be due to recent trauma. Troponin was negative. CXR showed cardiomegaly without pulmonary edema. . Dr. Luis Miguel Donohue was contacted for inpatient management due to prior admission. Labs Test 03/13/19 17:10 03/14/19 04:50 Activated Partial Thromboplast Time 27 SEC (23-33) Troponin I 0.093 ng/mL (0.000-0.056) Lipase 202 U/L (73-393) Digoxin Level < 0.2 NG/ML (0.5-2.0) White Blood Count 13.1 K/UL (4.8-10.8) Red Blood Count 3.63 M/UL (4.70-6.10) Hemoglobin 11.8 G/DL (14.2-18.0) Hematocrit 36.1 % (42.0-52.0) Mean Corpuscular Volume 100 FL (80-99) Mean Corpuscular Hemoglobin 32.5 PG (27.0-31.0) Mean Corpuscular Hemoglobin Concent 32.6 G/DL (32.0-36.0) Red Cell Distribution Width 15.3 % (11.6-14.8) Platelet Count 143 K/UL (150-450) Mean Platelet Volume 7.2 FL (6.5-10.1) Neutrophils (%) (Auto) % (45.0-75.0) Lymphocytes (%) (Auto) % (20.0-45.0) Monocytes (%) (Auto) % (1.0-10.0) Eosinophils (%) (Auto) % (0.0-3.0) Basophils (%) (Auto) % (0.0-2.0) Prothrombin Time 22.1 SEC (9.30-11.50) Prothromb Time International Ratio 2.2 (0.9-1.1) Sodium Level 132 MMOL/L (136-145) Potassium Level 4.6 MMOL/L (3.5-5.1) Chloride Level 94 MMOL/L (98-107) Carbon Dioxide Level 23 MMOL/L (21-32) Anion Gap 15 mmol/L (5-15) Blood Urea Nitrogen 53 mg/dL (7-18) Creatinine 7.4 MG/DL (0.55-1.30) Estimat Glomerular Filtration Rate 8.8 mL/min (>60) Glucose Level 319 MG/DL (74-106) Hemoglobin A1c 9.6 % (4.3-6.0) Calcium Level 9.0 MG/DL (8.5-10.1) Total Bilirubin 0.5 MG/DL (0.2-1.0) Aspartate Amino Transf (AST/SGOT) 29 U/L (15-37) Alanine Aminotransferase (ALT/SGPT) 26 U/L (12-78) Alkaline Phosphatase 81 U/L (46-116) Total Protein 7.1 G/DL (6.4-8.2) Albumin 3.3 G/DL (3.4-5.0) Globulin 3.8 g/dL Albumin/Globulin Ratio 0.9 (1.0-2.7) Triglycerides Level 52 MG/DL (30-150) Cholesterol Level 180 MG/DL (< 200) LDL Cholesterol 82 mg/dL (<100) HDL Cholesterol 65 MG/DL (40-60) Cholesterol/HDL Ratio 2.8 (3.3-4.4) Thyroid Stimulating Hormone (TSH) 0.775 uiU/mL (0.358-3.740) EKG Diagnostic Results Rate: tachycardiac - 148 Rhythm: NSR ST Segments: no acute changes Last Vital Signs Date Time Temp Pulse Resp B/P (MAP) Pulse Ox O2 Delivery O2 Flow Rate FiO2 03/13/19 16:56 98.8 78 25 98/51 (67) 98 Room Air Status: improved Disposition: ADMITTED INPATIENT Tj Negrete MD March 13, 2019 17:27
[2019-03-13 17:40] VITALS: BP 129/105
[2019-03-13 17:43] LABS: BASOPHILS % (AUTO) 1.3 % (0.0-2.0); EOSINOPHILS % (AUTO) 0.7 % (0.0-3.0); HEMATOCRIT 37.3 % (42.0-52.0); HEMOGLOBIN 12.9 G/DL (14.2-18.0); LYMPHOCYTES % (AUTO) 9.1 % (20.0-45.0); MEAN CORPUSCULAR VOLUME 95 FL (80-99); MONOCYTES % (AUTO) 6.4 % (1.0-10.0); NEUTROPHILS % (AUTO) 82.4 % (45.0-75.0); PLATELET COUNT 177 K/UL (150-450); RED BLOOD COUNT 3.93 M/UL (4.70-6.10); RED CELL DISTRIBUTION WIDTH 14.8 % (11.6-14.8); WHITE BLOOD COUNT 15.1 K/UL (4.8-10.8)
[2019-03-13 17:43] LABS: ANION GAP 21 mmol/L (5-15); BLOOD UREA NITROGEN 41 mg/dL (7-18); CALCIUM 10.2 MG/DL (8.5-10.1); CARBON DIOXIDE 20 MMOL/L (21-32); CHLORIDE 95 MMOL/L (98-107); CREATININE 6.8 MG/DL (0.55-1.30); POTASSIUM 4.2 MMOL/L (3.5-5.1); SODIUM 136 MMOL/L (136-145)
--- NOTE | 2019-03-13 17:47 | NUR ---
ED Nurse Note: X-ray tech at bedside for imaging.
[2019-03-13 17:49] LABS: INR 2.1 (0.9-1.1)
[2019-03-13 17:55] LABS: ALANINE AMINOTRANSFERASE 30 U/L (12-78); ALBUMIN 3.7 G/DL (3.4-5.0); ALBUMIN/GLOBULIN RATIO 0.9 (1.0-2.7); ALKALINE PHOSPHATASE 92 U/L (46-116); ASPARTATE AMINO TRANSFERASE 40 U/L (15-37); BILIRUBIN,TOTAL 0.8 MG/DL (0.2-1.0)
--- NOTE | 2019-03-13 18:00 | Diagnostic Imaging Report ---
EXAM: XR Right Hand Complete, 3 or More Views CLINICAL HISTORY: PAIN TECHNIQUE: Frontal, lateral and oblique views of the right hand. COMPARISON: No relevant prior studies available. FINDINGS: Bones/joints: No acute fracture. Old fracture of the fifth metacarpal. Degenerative changes and osteopenia. Soft tissues: No radiodense foreign body. Vascular calcifications. IMPRESSION: No acute fracture.
--- NOTE | 2019-03-13 18:01 | Diagnostic Imaging Report ---
EXAM: XR Left Knee, 3 views CLINICAL HISTORY: PAIN TECHNIQUE: Three views of the left knee. COMPARISON: No relevant prior studies available. FINDINGS: Bones/joints: No acute fracture. Severe degenerative changes. Trace effusion. Soft tissues: No radiodense foreign body. Vascular calcification. Mild soft tissue swelling. IMPRESSION: No acute fracture.
--- NOTE | 2019-03-13 18:04 | Diagnostic Imaging Report ---
EXAM: XR Chest, 1 View CLINICAL HISTORY: SOB TECHNIQUE: Frontal view of the chest. COMPARISON: No relevant prior studies available. FINDINGS: Lungs: No consolidation. Pleural space: Unremarkable. No pneumothorax. Heart: cardiomegaly and pacemaker. Mediastinum: Unremarkable. Bones/joints: No acute fracture. IMPRESSION: No acute findings.
[2019-03-13 18:35] VITALS: BP 129/47
--- NOTE | 2019-03-13 19:06 | NUR ---
HAND-OFF: Report given to KALEIGH Guardado.
--- NOTE | 2019-03-13 19:07 | NUR ---
ED Nurse Note: Received report from Kaylee/RN. Pt is A/O X4. HR 128. Cardizen given 1830 by swathi. Waiting for transfer.
[2019-03-13] MEDS ORDERED: Zolpidem 5mg tab ORAL PRN (19:45)
[2019-03-13] MEDS ORDERED: Miralax 17gm pkt ORAL PRN (19:45)
[2019-03-13] MEDS ORDERED: Albuterol/Ipratropium 3ml neb HHN PRN (19:45)
[2019-03-13] MEDS ORDERED: Morphine Sulfate 2mg/ml Inj(IV/IM USE ONLY) IVP PRN (19:45)
--- NOTE | 2019-03-13 20:37 | Diagnostic Imaging Report ---
EXAM: XR Left Ankle Complete, 3 or More Views CLINICAL HISTORY: PAIN TECHNIQUE: Frontal, lateral and oblique views of the left ankle. COMPARISON: No relevant prior studies available. FINDINGS: Bones/joints: No acute fracture. Plantar calcaneal spur. Soft tissues: No radiodense foreign body. Soft tissue swelling. Vascular calcifications. IMPRESSION: No acute fracture.
--- NOTE | 2019-03-13 20:50 | NUR ---
TRANSFER TO FLOOR: Patient transferred to [facility] /236 as ordered . Report given to Jeannette/KALEIGH. Belongings sent with Pt and rechecked with RN. Pt is A/O X4.
[2019-03-13] MEDS ORDERED: Heparin 5000 units/ml inj SUBQ SCH (21:00)
[2019-03-13 21:05] VITALS: BP 141/49
--- NOTE | 2019-03-13 21:05 | NUR ---
NURSE NOTES: Received patient from KALEIGH SNOW from ER via александр. Will initiate plan of care.
[2019-03-13] MEDS: HydrALAZINE 50mg tab ORAL SCH (21:44)
[2019-03-13] MEDS: NovoLOG Insulin Flexpen SUBQ SCH (21:44)
[2019-03-13] MEDS: Metoprolol Tartrate 50mg tab ORAL SCH (21:45)
[2019-03-14] VITALS: BP 126/69
[2019-03-14 04:00] VITALS: BP 138/68
[2019-03-14 05:38] LABS: HEMATOCRIT 36.1 % (42.0-52.0); HEMOGLOBIN 11.8 G/DL (14.2-18.0); MEAN CORPUSCULAR VOLUME 100 FL (80-99); PLATELET COUNT 143 K/UL (150-450); RED BLOOD COUNT 3.63 M/UL (4.70-6.10); RED CELL DISTRIBUTION WIDTH 15.3 % (11.6-14.8); WHITE BLOOD COUNT 13.1 K/UL (4.8-10.8)
[2019-03-14 05:45] LABS: INR 2.2 (0.9-1.1)
[2019-03-14] MEDS: HydrALAZINE 50mg tab ORAL SCH ×3 (05:47→22:00)
[2019-03-14] MEDS: Metoprolol Tartrate 50mg tab ORAL SCH ×3 (05:47→22:00)
[2019-03-14] MEDS: NovoLOG Insulin Flexpen SUBQ SCH ×4 (05:49→21:16)
[2019-03-14 06:18] LABS: ALANINE AMINOTRANSFERASE 26 U/L (12-78); ALBUMIN 3.3 G/DL (3.4-5.0); ALBUMIN/GLOBULIN RATIO 0.9 (1.0-2.7); ALKALINE PHOSPHATASE 81 U/L (46-116); ANION GAP 15 mmol/L (5-15); ASPARTATE AMINO TRANSFERASE 29 U/L (15-37); BILIRUBIN,TOTAL 0.5 MG/DL (0.2-1.0); BLOOD UREA NITROGEN 53 mg/dL (7-18); CARBON DIOXIDE 23 MMOL/L (21-32); CHLORIDE 94 MMOL/L (98-107); CHOLESTEROL 180 MG/DL (< 200); CREATININE 7.4 MG/DL (0.55-1.30); HDL CHOLESTEROL 65 MG/DL (40-60); POTASSIUM 4.6 MMOL/L (3.5-5.1); SODIUM 132 MMOL/L (136-145); TRIGLYCERIDES 52 MG/DL (30-150)
--- NOTE | 2019-03-14 07:25 | NUR ---
HAND-OFF: Report given to Li Coley RN.
--- NOTE | 2019-03-14 07:30 | NUR ---
NURSE NOTES: Report received from Dasia Xiong RN.Pt resting in bed awake ,alert , answers appropriately,no resp distress noted,denies any c/o pain or discomfort,Afib on the monitor,pt with Rt Femoral permacath,and HL to LT hand intact ,skin warm and dry SR up x2 HOB elevated,bed lock in lowest position,will continue with plans of care.
[2019-03-14 08:00] VITALS: BP 113/72
--- NOTE | 2019-03-14 08:24 | History and Physical ---
History of Present Illness General Date patient seen: Mar 14, 2019 Time patient seen: 07:45 Reason for Hospitalization: Generalized Weakness Present Illness HPI 69 years old male with PMH of ESRD on HD, DM, COPD, hypertension, A fib, left upper chest pacemaker, history of CVA, history of heart attack, gout, depression, left eye blindness, recent history of ear infection, presented after he sustained a mechanical fall. Patient denied loss of consciousness He denied dizziness or blackouts. He denied chest pain, he reported some shortness of breath and palpitations. Patient stumbled and fell. Patient reported recurrent falls. Patient usually wheelchair-bound , but can ambulate with walker. Patient reported injury to right hand, left knee, and left ankle. Upon evaluation in the emergency department patient was found to be in atrial fibrillation with rapid ventricular risk response. Patient received diltiazem with improvement in heart rate. Laboratory work-up revealed leukocytosis WBC 15.1, hemoglobin 12.9, hematocrit 37.3. BUN of 41, creatinine 6.8, consistent with known history of end-stage renal disease. Glucose 272. Troponin elevated 0.093. EKG revealed s atrial fibrillation with rapid ventricular response . Chest x-ray revealed no acute cardiopulmonary pathology , no pulmonary edema. Patient was subsequently admitted to direct observational unit for further management. Allergies: Coded Allergies: No Known Allergies (Verified , 07/21/11) Medication History Scheduled Allopurinol* (Allopurinol*), 100 MG ORAL BID, (Reported) Aripiprazole* (Abilify*), Unknown Dose ORAL DAILY, (Reported) Aspirin* (Aspirin*), 81 MG ORAL DAILY, (Reported) Atorvastatin Calcium* (Atorvastatin Calcium*), 10 MG ORAL BEDTIME, (Reported) Atorvastatin Calcium* (Lipitor*), Unknown Dose ORAL BEDTIME, (Reported) Cholecalciferol (Vitamin D3)* (Vitamin D*), 1,000 UNIT ORAL DAILY, (Reported) Digoxin* (Digoxin*), 125 MCG ORAL DAILY, (Reported) Docusate Sodium* (Docusate Sodium*), 100 MG ORAL TID, (Reported) Ferrous Sulfate* (Ferrous Sulfate*), 325 MG ORAL BID, (Reported) Furosemide* (Lasix*), 40 MG ORAL DAILY, (Reported) Hydralazine HCl (Hydralazine HCl), 10 MG ORAL Q8HR Hydralazine Hcl* (Hydralazine Hcl*), 50 MG PO EVERY 8 HOURS, (Reported) Insulin Glargine (Lantus), 35 UNITS SUBQ BID, (Reported) Lisinopril* (Lisinopril*), 20 MG ORAL DAILY, (Reported) Losartan Potassium (Cozaar), 100 MG ORAL DAILY, (Reported) Losartan Potassium* (Cozaar*), Unknown Dose ORAL DAILY, (Reported) Metolazone (Metolazone), 2.5 MG ORAL DAILY, (Reported) Metoprolol Succinate* (Metoprolol Succinate*), 50 MG ORAL EVERY 8 HOURS, ( Reported) Nifedipine Er* (Nifedipine Er*), 60 MG ORAL BID, (Reported) Nitroglycerin (Nitroglycerin), 0.4 MG SL PRN, (Reported) Pantoprazole* (Protonix*), Unknown Dose ORAL DAILY, (Reported) Potassium Chloride* (K-Dur*), 20 MEQ ORAL DAILY, (Reported) Sertraline Hcl* (Zoloft*), Unknown Dose ORAL DAILY, (Reported) Sevelamer Carbonate (Renvela), 2,400 MG ORAL THREE TIMES A DAY Warfarin Sod* (Warfarin Sod*), 7.5 MG ORAL DAILY, (Reported) Warfarin Sod* (Coumadin*), Unknown Dose ORAL DAILY, (Reported) Medications Narrative Patient History Healthcare decision maker N Resuscitation status Full Code Advanced Directive on File Review of Systems Constitutional: Reports: weakness Eye: Reports: other - Left eye blindness ENT: Reports: ear pain - recent hx of ear infection, was prescribed abx by his PMD Respiratory: Reports: shortness of breath Cardiovascular: Reports: no symptoms, other - History of hypertension, atrial fibrillation, heart attack Gastrointestinal: Reports: constipation Genitourinary: Reports: other - ESRD, on HD, gout Musculoskeletal: Reports: muscle stiffness, other - w/chair biound, can ambulate with walker Skin: Reports: dryness Psychiatric: Reports: depressed feelings Neurological: Reports: other - hx of CVA Endocrine: Reports: other - DM Hematologic/Lymphatic: Reports: no symptoms Physical Exam General Appearance: no apparent distress, other - Awake, alert, and oriented x 3 but slow in responses , and forgetful Lines, tubes and drains: peripheral HEENT: normocephalic, atraumatic, anicteric, mucous membranes moist, EOMI, supple Respiratory/Chest: lungs clear, no respiratory distress, no accessory muscle use, other - left sided pacemaker Cardiovascular/Chest: tachycardia, irregularly irregular - A fib with HR 100- 110, other - R thigh HD catheter Abdomen: normal bowel sounds, non tender, soft - obese Extremities: no calf tenderness, normal capillary refill, trace edema - BLE Skin Exam: warm/dry Neurologic: abnormal gait - w/chait bound but can ambulate with walker , alert Musculoskeletal: atrophy - BLE Last 24 Hour Vital Signs Date Time Temp Pulse Resp B/P (MAP) Pulse Ox O2 Delivery O2 Flow Rate FiO2 03/14/19 05:47 116 126/89 03/14/19 05:47 126/89 03/14/19 04:00 98.8 109 20 138/68 (91) 100 03/14/19 04:00 122 03/14/19 04:00 Nasal Cannula 3.0 03/14/19 00:00 Nasal Cannula 3.0 03/14/19 00:00 98.4 103 20 126/69 (88) 100 03/13/19 23:36 106 03/13/19 21:45 133 141/49 03/13/19 21:44 141/49 03/13/19 21:05 97.7 125 28 141/49 (79) 98 03/13/19 21:05 Room Air 3.0 03/13/19 20:50 98.8 124 23 128/53 99 Room Air 4.0 03/13/19 18:35 98.8 110 23 129/47 99 Room Air 4.0 03/13/19 18:09 129 122/98 03/13/19 17:55 131 25 Room Air 03/13/19 17:40 98.8 131 25 129/105 99 Nasal Cannula 4.0 03/13/19 17:39 141 129/105 03/13/19 16:56 98.8 78 25 98/51 (67) 98 Room Air Intake and Output 03/13/19 03/14/19 18:59 06:59 Intake Total 600 ml Balance 600 ml Intake Oral 600 ml # Bowel Movements 4 Laboratory Tests Test 03/13/19 17:10 03/13/19 17:23 03/14/19 04:50 Prothrombin Time 21.3 SEC (9.30-11.50) H 22.1 SEC (9.30-11.50) H Prothromb Time International Ratio 2.1 (0.9-1.1) H 2.2 (0.9-1.1) H Activated Partial Thromboplast Time 27 SEC (23-33) Sodium Level 136 MMOL/L (136-145) 132 MMOL/L (136-145) L Potassium Level 4.2 MMOL/L (3.5-5.1) 4.6 MMOL/L (3.5-5.1) Chloride Level 95 MMOL/L (98-107) L 94 MMOL/L (98-107) L Carbon Dioxide Level 20 MMOL/L (21-32) L 23 MMOL/L (21-32) Anion Gap 21 mmol/L (5-15) H 15 mmol/L (5-15) Blood Urea Nitrogen 41 mg/dL (7-18) H 53 mg/dL (7-18) H Creatinine 6.8 MG/DL (0.55-1.30) H 7.4 MG/DL (0.55-1.30) H Estimat Glomerular Filtration Rate 9.8 mL/min (>60) 8.8 mL/min (>60) Glucose Level 272 MG/DL (74-106) H 319 MG/DL (74-106) H Calcium Level 10.2 MG/DL (8.5-10.1) H 9.0 MG/DL (8.5-10.1) Total Bilirubin 0.8 MG/DL (0.2-1.0) 0.5 MG/DL (0.2-1.0) Aspartate Amino Transf (AST/SGOT) 40 U/L (15-37) H 29 U/L (15-37) Alanine Aminotransferase (ALT/SGPT) 30 U/L (12-78) 26 U/L (12-78) Alkaline Phosphatase 92 U/L (46-116) 81 U/L (46-116) Troponin I 0.093 ng/mL (0.000-0.056) Total Protein 7.9 G/DL (6.4-8.2) 7.1 G/DL (6.4-8.2) Albumin 3.7 G/DL (3.4-5.0) 3.3 G/DL (3.4-5.0) L Globulin 4.2 g/dL 3.8 g/dL Albumin/Globulin Ratio 0.9 (1.0-2.7) L 0.9 (1.0-2.7) L Lipase 202 U/L (73-393) Thyroid Stimulating Hormone (TSH) 1.527 uiU/mL (0.358-3.740) 0.775 uiU/mL (0.358-3.740) Digoxin Level < 0.2 NG/ML (0.5-2.0) L White Blood Count 15.1 K/UL (4.8-10.8) H 13.1 K/UL (4.8-10.8) H Red Blood Count 3.93 M/UL (4.70-6.10) L 3.63 M/UL (4.70-6.10) L Hemoglobin 12.9 G/DL (14.2-18.0) L 11.8 G/DL (14.2-18.0) L Hematocrit 37.3 % (42.0-52.0) L 36.1 % (42.0-52.0) L Mean Corpuscular Volume 95 FL (80-99) 100 FL (80-99) H Mean Corpuscular Hemoglobin 32.8 PG (27.0-31.0) H 32.5 PG (27.0-31.0) H Mean Corpuscular Hemoglobin Concent 34.6 G/DL (32.0-36.0) 32.6 G/DL (32.0-36.0) Red Cell Distribution Width 14.8 % (11.6-14.8) 15.3 % (11.6-14.8) H Platelet Count 177 K/UL (150-450) 143 K/UL (150-450) L Mean Platelet Volume 7.6 FL (6.5-10.1) 7.2 FL (6.5-10.1) Neutrophils (%) (Auto) 82.4 % (45.0-75.0) H % (45.0-75.0) Lymphocytes (%) (Auto) 9.1 % (20.0-45.0) L % (20.0-45.0) Monocytes (%) (Auto) 6.4 % (1.0-10.0) % (1.0-10.0) Eosinophils (%) (Auto) 0.7 % (0.0-3.0) % (0.0-3.0) Basophils (%) (Auto) 1.3 % (0.0-2.0) % (0.0-2.0) Neutrophils % (Manual) Pending Lymphocytes % (Manual) Pending Platelet Estimate Pending Platelet Morphology Pending Hemoglobin A1c 9.6 % (4.3-6.0) H Triglycerides Level 52 MG/DL (30-150) Cholesterol Level 180 MG/DL (< 200) LDL Cholesterol 82 mg/dL (<100) HDL Cholesterol 65 MG/DL (40-60) H Cholesterol/HDL Ratio 2.8 (3.3-4.4) L Microbiology Date/Time Source Procedure Growth Status 03/13/19 18:40 Rectum Received Height (Feet): 5 Height (Inches): 9.00 Weight (Pounds): 210 Medications Current Medications Medications (Trade) Dose Ordered Sig/Divya Route PRN Reason Start Time Stop Time Status Last Admin Dose Admin Acetaminophen (Tylenol) 650 mg Q4H PRN ORAL fever 03/13/19 19:45 04/12/19 19:44 Albuterol/ Ipratropium (Albuterol/ Ipratropium) 3 ml Q6HRT PRN HHN dyspnea 03/13/19 19:45 03/18/19 19:44 Allopurinol (Zyloprim) 100 mg BID ORAL 03/14/19 09:00 04/13/19 08:59 Clonidine HCl (Catapres Tab) 0.1 mg Q4H PRN ORAL For High Blood Pressure 03/13/19 19:45 04/12/19 19:44 Dextrose (Dextrose 50%) 25 ml Q30M PRN IV Hypoglycemia 03/13/19 19:45 04/12/19 19:44 Dextrose (Dextrose 50%) 50 ml Q30M PRN IV Hypoglycemia 03/13/19 19:45 04/12/19 19:44 Digoxin (Lanoxin) 0.125 mg DAILY ORAL 03/14/19 09:00 04/13/19 08:59 Hydralazine HCl (Apresoline) 50 mg EVERY 8 HOURS ORAL 03/13/19 22:00 04/12/19 21:59 03/14/19 05:47 Insulin Aspart (NovoLOG) BEFORE MEALS AND HS SUBQ 03/13/19 21:00 04/12/19 20:59 03/14/19 05:49 Losartan Potassium (Cozaar) 100 mg DAILY ORAL 03/14/19 09:00 04/13/19 08:59 Metoprolol Tartrate (Lopressor) 50 mg EVERY 8 HOURS ORAL 03/13/19 22:00 04/12/19 21:59 03/14/19 05:47 Morphine Sulfate (Morphine Sulfate) 1 mg Q4H PRN IVP For Pain 03/13/19 19:45 03/20/19 19:44 03/13/19 23:33 Ondansetron HCl (Zofran) 4 mg Q6H PRN IVP Nausea & Vomiting 03/13/19 19:45 04/12/19 19:44 Polyethylene Glycol (Miralax) 17 gm HSPRN PRN ORAL Constipation 03/13/19 19:45 04/12/19 19:44 Warfarin Sodium (Coumadin per pharmacy) 1 ea DAILY PRN MISC Per rx protocol 03/13/19 19:45 04/12/19 19:44 Zolpidem Tartrate (Ambien) 5 mg HSPRN PRN ORAL Insomnia 03/13/19 19:45 03/20/19 19:44 Assessment/Plan Status Narrative ASSESSMENT Afib with RVR Elevated troponin Leukocytosis COPD recent ear infection s/p fall hypotension -resolved Hypertensive kidney disease COPD ESRD, on HD DM OOC ([id number]) Hx of CVA PLAN OF CARE [facility] rate control with Digoxin and BB a/coagulation with Coumadin, keep INR in therap. range, INR therapeutic cardio eval pending trend troponin ECG this am start ASA ECHO Venous Duplex BLE BP management with current regimen of BB, ARB and Hydralazine , optimize further as needed lipid panel ok ; TSH WNL BS management, HgA1c -high, add Levemir, continue SSI HD as per nephro, monitor volumes, cardiorenal parameters leuk trending down, no fevers CXR clear, hx of recent ear infection patient just refilled his meds when fall happened. does not remember the names of medications, incomplete hx of ear pain and symptoms leuk trending down, no fevers, no evidence of OE, will hold off on abx until ID evaluation and further recs GI prophylaxis bowel regimen supportive care fall precautions PT eval and Rx case discussed and evaluated by supervising physician Eliana Milner NP Mar 14, 2019 08:24
[2019-03-14] MEDS ORDERED: Allopurinol 100mg Tab ORAL SCH (09:00)
[2019-03-14] MEDS: Digoxin 0.125mg tab ORAL SCH (09:01)
[2019-03-14] MEDS: Aspirin Baby 81mg ORAL SCH (09:01)
[2019-03-14] MEDS: Losartan 50mg tab ORAL SCH (09:01)
[2019-03-14 12:00] VITALS: BP 127/71
--- NOTE | 2019-03-14 13:00 | NUR ---
NURSE NOTES: Dr Abraham at bedside, ordered Hemodialysis today,[facility] called and sched pt for dialysis.
[2019-03-14] MEDS: Levemir Flexpen SUBQ SCH (13:25)
--- NOTE | 2019-03-14 13:26 | Consultation ---
Consult Note Consult Note I was asked to evaluate the patient at the request of Dr avalos for dialysis management 69 years old male with PMH of ESRD on HD, DM, COPD, hypertension, A fib, left upper chest pacemaker, history of CVA, history of heart attack, gout, depression, left eye blindness, recent history of ear infection, presented after he sustained a mechanical fall. Patient denied loss of consciousness He denied dizziness or blackouts. He denied chest pain, he reported some shortness of breath and palpitations. Patient stumbled and fell. Patient reported recurrent falls. Patient usually wheelchair-bound , but can ambulate with walker. Patient reported injury to right hand, left knee, and left ankle. Upon evaluation in the emergency department patient was found to be in atrial fibrillation with rapid ventricular risk response. Patient examined- Has a cath in right femoral area somewhat SOb and slow to respond Tachycardia states that has not been dialysed for one week ! labs reviewed discussed with RN . Assessment/Plan ESRD CHF At fib with FVR DM- High BS HTN Anemia Elevated Troponin I COPD recent ear infection HD today Optimize cardiac condition BP and BS check and control per cardiology per orders Francisco Javier Abraham MD Mar 14, 2019 13:26
[2019-03-14 16:00] VITALS: BP 121/65
--- NOTE | 2019-03-14 16:00 | NUR ---
NURSE NOTES: With ongoing dialysis,HD RN at bedside.Pt resting comfortably ,no c/o presented,tolerating dialysis.
--- NOTE | 2019-03-14 16:24 | NUR ---
CASE MANAGEMENT: INITIAL REVIEW 69 YO M BIBA FROM HOME CC: GEN WEAKNESS PMHx: PACER. PNA. COPD. CVA. ARMENTA. SI:UNCONTROLLED A FIB. T 98.8 HR 78 RR 25 B/P 98/51 SATS 98% ON RA WBC 15.1 CL 95 CO2 20 BUN 41 CR 6.8 GLU 272 CA 10.2 AST 40 TROPONIN 0.093 IS: SOLU MEDROL IV X1 CARDIZEM IV X1 PATIENT ADMITTED TO SDU 03/13/2019 @ 1853 DCP: PATIENT TO BE DISCHARGED TO HOME ONCE MEDICALLY CLEARED. PLAN OF CARE: cardio eval pending trend troponin ECHO Venous Duplex BLE
[2019-03-14] MEDS ORDERED: Warfarin Sodium 5mg ORAL SCH (17:00)
--- NOTE | 2019-03-14 18:00 | NUR ---
NURSE NOTES: Hemodialysis done removed 2l of fluid,pt sitting up on bed eating dinner,no distress presented.
--- NOTE | 2019-03-14 19:30 | NUR ---
HAND-OFF: Report given to Dasia Xiong RN..
[2019-03-14 20:00] VITALS: BP 98/56
[2019-03-15] VITALS (7 sets, daily range): BP systolic 93–131; BP diastolic 58–72
[2019-03-15] MEDS: NovoLOG Insulin Flexpen SUBQ SCH ×5 (05:48→21:00)
[2019-03-15] MEDS: HydrALAZINE 50mg tab ORAL SCH (05:49)
[2019-03-15] MEDS: Metoprolol Tartrate 50mg tab ORAL SCH ×3 (05:49→21:26)
[2019-03-15 06:05] LABS: BASOPHILS % (AUTO) 0.8 % (0.0-2.0); EOSINOPHILS % (AUTO) 2.5 % (0.0-3.0); HEMATOCRIT 40.3 % (42.0-52.0); HEMOGLOBIN 13.2 G/DL (14.2-18.0); LYMPHOCYTES % (AUTO) 8.4 % (20.0-45.0); MEAN CORPUSCULAR VOLUME 102 FL (80-99); MONOCYTES % (AUTO) 7.1 % (1.0-10.0); NEUTROPHILS % (AUTO) 81.2 % (45.0-75.0); PLATELET COUNT 142 K/UL (150-450); RED BLOOD COUNT 3.96 M/UL (4.70-6.10); RED CELL DISTRIBUTION WIDTH 15.5 % (11.6-14.8); WHITE BLOOD COUNT 10.5 K/UL (4.8-10.8)
[2019-03-15 06:08] LABS: INR 2.4 (0.9-1.1)
[2019-03-15 06:37] LABS: % IRON SATURATION 27 % (15-50); IRON 39 ug/dL (50-175); TOTAL IRON BINDING CAPACITY 146 ug/dL (250-450)
[2019-03-15 06:51] LABS: ALANINE AMINOTRANSFERASE 27 U/L (12-78); ALBUMIN 3.1 G/DL (3.4-5.0); ALBUMIN/GLOBULIN RATIO 0.8 (1.0-2.7); ALKALINE PHOSPHATASE 82 U/L (46-116); ANION GAP 14 mmol/L (5-15); ASPARTATE AMINO TRANSFERASE 22 U/L (15-37); BILIRUBIN,TOTAL 0.5 MG/DL (0.2-1.0); BLOOD UREA NITROGEN 53 mg/dL (7-18); CALCIUM 8.9 MG/DL (8.5-10.1); CARBON DIOXIDE 28 MMOL/L (21-32); CHLORIDE 95 MMOL/L (98-107); CREATININE 7.7 MG/DL (0.55-1.30); FERRITIN 1540 NG/ML (8-388); PHOSPHORUS 6.9 MG/DL (2.5-4.9); POTASSIUM 3.6 MMOL/L (3.5-5.1); SODIUM 137 MMOL/L (136-145)
--- NOTE | 2019-03-15 07:24 | NUR ---
HAND-OFF: Report given to KALEIGH Huffman.
--- NOTE | 2019-03-15 07:25 | NUR ---
NURSE NOTES: RECEIVED PATIENT FROM KALEIGH LEE. PATIENT IS LYING IN BED, ASLEEP BUT AROUSABLE. HOOKED TO UNDERGROUND ELECTRICIAN. ON 3L NC. NO SIGNS OF DISTRESS. NOTED BURNT SKIN FROM HOME. IV ON HAND G22, SL. RIGHT FEMORAL PERMACATH FOR HD DIALYSIS. OLD AV SHUNT ON R UA. CALL LIGHT WITHIN REACH. BED AT LOWEST POSITION. SIDE RAILS UP. WILL CONTINUE TO MONITOR.
--- NOTE | 2019-03-15 08:30 | Pulmonology Progress Note ---
Assessment/Plan Assessment/Plan ASSESSMENT Afib with RVR Elevated troponin Leukocytosis-resolved COPD recent ear infection s/p fall hypotension -resolved Hypertensive kidney disease COPD ESRD, on HD DM OOC ([id number]-4.6) Hx of CVA PLAN OF CARE JOSIE rate control with Digoxin and BB a/coagulation with Coumadin, keep INR in therap. range, INR therapeutic cardio eval pending troponin trending down, minimal troponin elevation and absence of chest pain not c/w ACS ECG with persistent A fib, likely permanent started on ASA ECHO prior ECHO in Febr with mild depressed EF, pro BNP elevated, but not indicative in renal patients at home on Lasix and HD, HD pending for today will hold Lasix until cardio eval , given low BP this am already Venous Duplex BLE BP management with current regimen of BB, ARB and Hydralazine , optimize further as needed ( with holding parameters ) lipid panel ok ; TSH WNL BS management, HgA1c -high, added Levemir, continue SSI HD as per nephro, monitor volumes, cardiorenal parameters leuk resolved, no fevers CXR clear, hx of recent ear infection patient just refilled his meds when fall happened. does not remember the names of medications, incomplete hx of ear pain and symptoms leuk resolved, no fevers, no evidence of OE, will hold off on abx until ID evaluation and further recs GI prophylaxis bowel regimen supportive care fall precautions PT eval and Rx transfer to tele case discussed and evaluated by supervising physician Subjective Allergies: Coded Allergies: No Known Allergies (Verified , 07/21/11) Subjective leuk resolved, afebrile denies chest pain, SOB, troponin trending down remains in A fib with tachy 100-110 Objective Last 24 Hour Vital Signs Date Time Temp Pulse Resp B/P (MAP) Pulse Ox O2 Delivery O2 Flow Rate FiO2 03/15/19 07:57 60 18 100 Nasal Cannula 2.0 28 03/15/19 07:57 100 Nasal Cannula 2.0 28 03/15/19 05:49 107/71 03/15/19 05:49 98 107/71 03/15/19 04:00 110 03/15/19 04:00 99.1 110 20 114/68 (83) 99 03/15/19 04:00 Nasal Cannula 3.0 03/15/19 00:00 Nasal Cannula 3.0 03/15/19 00:00 98.4 109 20 114/71 (85) 98 03/14/19 23:37 100 03/14/19 22:00 108/61 03/14/19 22:00 98 108/61 03/14/19 20:00 Nasal Cannula 3.0 03/14/19 20:00 97.7 102 20 98/56 (70) 97 03/14/19 19:23 107 03/14/19 16:00 109 03/14/19 16:00 98.6 102 18 121/65 (83) 94 03/14/19 16:00 Nasal Cannula 3.0 03/14/19 13:26 84 127/71 03/14/19 13:26 127/71 03/14/19 12:00 98.6 84 22 127/71 (89) 100 03/14/19 12:00 128 03/14/19 12:00 Nasal Cannula 3.0 03/14/19 09:34 111 20 99 Nasal Cannula 2.0 28 03/14/19 09:33 99 Nasal Cannula 2.0 28 03/14/19 09:01 113/72 03/14/19 09:01 109 Intake and Output 03/14/19 03/15/19 18:59 06:59 Intake Total 2720 ml 500 ml Balance 2720 ml 500 ml Intake Oral 720 ml 500 ml Hemodialysis 2000 ml # Bowel Movements 2 2 Objective General Appearance: no apparent distress, awake, alert, and oriented x 3 but slow in responses and forgetful Lines, tubes and drains: peripheral HEENT: normocephalic, atraumatic, anicteric, mucous membranes moist, EOMI, supple Respiratory/Chest: lungs clear, no respiratory distress, no accessory muscle use, left sided pacemaker Cardiovascular/Chest: tachycardia, irregularly irregular - A fib with HR 100- 110, R thigh HD catheter Abdomen: normal bowel sounds, non tender, soft - obese Extremities: no calf tenderness, normal capillary refill, trace edema BLE Skin Exam: warm/dry Neurologic: abnormal gait - w/chair bound m but can ambulate with walker , alert Musculoskeletal: atrophy - BLE Microbiology Date/Time Source Procedure Growth Status 03/13/19 18:40 Rectum Received Laboratory Tests 03/14/19 15:15: Digoxin Level 0.5 03/15/19 05:30: Digoxin Level 0.3L, White Blood Count 10.5, Red Blood Count 3.96L, Hemoglobin 13.2L, Hematocrit 40.3L, Mean Corpuscular Volume 102H, Mean Corpuscular Hemoglobin 33.3H, Mean Corpuscular Hemoglobin Concent 32.7, Red Cell Distribution Width 15.5H, Platelet Count 142L, Mean Platelet Volume 8.1, Neutrophils (%) (Auto) 81.2H, Lymphocytes (%) (Auto) 8.4L, Monocytes (%) (Auto) 7.1, Eosinophils (%) (Auto) 2.5, Basophils (%) (Auto) 0.8, Prothrombin Time 24.3H, Prothromb Time International Ratio 2.4H, Sodium Level 137, Potassium Level 3.6, Chloride Level 95L, Carbon Dioxide Level 28, Anion Gap 14, Blood Urea Nitrogen 53H, Creatinine 7.7H, Estimat Glomerular Filtration Rate 8.5, Glucose Level 177#H, Hemoglobin A1c 9.5H, Uric Acid 5.3, Calcium Level 8.9, Phosphorus Level 6.9H, Magnesium Level 2.0, Iron Level 39L, Total Iron Binding Capacity 146L, Percent Iron Saturation 27, Unsaturated Iron Binding 107L, Ferritin 1540H, Total Bilirubin 0.5, Aspartate Amino Transf (AST/SGOT) 22, Alanine Aminotransferase (ALT/SGPT) 27, Alkaline Phosphatase 82, Troponin I 0.062H, C-Reactive Protein, Quantitative 4.2H, Pro-B-Type Natriuretic Peptide 54518E, Total Protein 7.0, Albumin 3.1L, Globulin 3.9, Albumin/Globulin Ratio 0.8L, Vitamin B12 Level 792, Folate 10.3 Current Medications Medications (Trade) Dose Ordered Sig/Divya Route PRN Reason Start Time Stop Time Status Last Admin Dose Admin Acetaminophen (Tylenol) 650 mg Q4H PRN ORAL fever 03/13/19 19:45 04/12/19 19:44 03/14/19 21:17 Albuterol/ Ipratropium (Albuterol/ Ipratropium) 3 ml Q6HRT PRN HHN dyspnea 03/13/19 19:45 03/18/19 19:44 Aspirin (ASA) 81 mg DAILY ORAL 03/14/19 09:00 04/13/19 08:59 03/14/19 09:01 Clonidine HCl (Catapres Tab) 0.1 mg Q4H PRN ORAL for bp of over 160 syst 03/14/19 15:45 04/12/19 19:44 Dextrose (Dextrose 50%) 25 ml Q30M PRN IV Hypoglycemia 03/13/19 19:45 04/12/19 19:44 Dextrose (Dextrose 50%) 50 ml Q30M PRN IV Hypoglycemia 03/13/19 19:45 04/12/19 19:44 Digoxin (Lanoxin) 0.125 mg DAILY ORAL 03/14/19 09:00 04/13/19 08:59 03/14/19 09:01 Hydralazine HCl (Apresoline) 50 mg EVERY 8 HOURS ORAL 03/14/19 22:00 04/12/19 21:59 Insulin Aspart (NovoLOG) BEFORE MEALS AND HS SUBQ 03/13/19 21:00 04/12/19 20:59 03/15/19 05:48 Insulin Detemir (Levemir) 10 units DAILY SUBQ 03/14/19 11:00 04/13/19 10:59 03/14/19 13:25 Losartan Potassium (Cozaar) 100 mg DAILY ORAL 03/14/19 09:00 04/13/19 08:59 03/14/19 09:01 Metoprolol Tartrate (Lopressor) 50 mg EVERY 8 HOURS ORAL 03/13/19 22:00 04/12/19 21:59 03/14/19 13:26 Morphine Sulfate (Morphine Sulfate) 1 mg Q4H PRN IVP For Pain 03/13/19 19:45 03/20/19 19:44 03/13/19 23:33 Ondansetron HCl (Zofran) 4 mg Q6H PRN IVP Nausea & Vomiting 03/13/19 19:45 04/12/19 19:44 Pantoprazole (Protonix) 40 mg DAILY ORAL 03/15/19 09:00 04/14/19 08:59 Polyethylene Glycol (Miralax) 17 gm HSPRN PRN ORAL Constipation 03/13/19 19:45 04/12/19 19:44 Warfarin Sodium (Coumadin per pharmacy) 1 ea DAILY PRN MISC Per rx protocol 03/13/19 19:45 04/12/19 19:44 Warfarin Sodium (Coumadin) 5 mg COUMADIN ORAL 03/15/19 17:00 03/20/19 16:59 Zolpidem Tartrate (Ambien) 5 mg HSPRN PRN ORAL Insomnia 03/13/19 19:45 03/20/19 19:44 Eliana Milner NP Mar 15, 2019 08:30
[2019-03-15] MEDS: Aspirin Baby 81mg ORAL SCH (08:52)
[2019-03-15] MEDS: Digoxin 0.125mg tab ORAL SCH (08:52)
[2019-03-15] MEDS: Losartan 50mg tab ORAL SCH (08:53)
[2019-03-15] MEDS: Levemir Flexpen SUBQ SCH (08:58)
--- NOTE | 2019-03-15 10:04 | NUR ---
NURSE NOTES: PATIENT SEEN WALKING IN THE HALLWAY WITH PT. HR WENT UP. BACK ON BED.NO SIGNS OF DISTRESS. WILL CONTINUE TO MONITOR.
--- NOTE | 2019-03-15 10:09 | Consultation ---
History of Present Illness General Date patient seen: Mar 15, 2019 Chief Complaint: Generalized Weakness Reason for Consultation: Leukocytosis Present Illness HPI Mr. Buchanan is a 69 yo male with PMHx of ESRD on HD, DM, COPD, hypertension, A fib, left upper chest pacemaker, history of CVA, history of heart attack, gout , depression, left eye blindness who presented to the ED on 03/13/19 after a fall. He reports that he just stummbled. No Dizziness, He denies dysuria, fever , chill, ARMENTA, ear pain ( He did have an ear infection a little while ago). In the ED he was afebrile with WBCs of 15. The leukocytosis as since resoved without abx. ID consulted for leukocytosis PMHx/PSHx ESRD on HD DM COPD HTN A fib TN S/P pacemaker, CVA Gout Depression Left eye blindness SocHx No E/T/D FamHx Not contributory Allergies: Coded Allergies: No Known Allergies (Verified , 07/21/11) Medication History Scheduled Allopurinol* (Allopurinol*), 100 MG ORAL BID, (Reported) Aripiprazole* (Abilify*), Unknown Dose ORAL DAILY, (Reported) Aspirin* (Aspirin*), 81 MG ORAL DAILY, (Reported) Atorvastatin Calcium* (Atorvastatin Calcium*), 10 MG ORAL BEDTIME, (Reported) Atorvastatin Calcium* (Lipitor*), Unknown Dose ORAL BEDTIME, (Reported) Cholecalciferol (Vitamin D3)* (Vitamin D*), 1,000 UNIT ORAL DAILY, (Reported) Digoxin* (Digoxin*), 125 MCG ORAL DAILY, (Reported) Docusate Sodium* (Docusate Sodium*), 100 MG ORAL TID, (Reported) Ferrous Sulfate* (Ferrous Sulfate*), 325 MG ORAL BID, (Reported) Furosemide* (Lasix*), 40 MG ORAL DAILY, (Reported) Hydralazine HCl (Hydralazine HCl), 10 MG ORAL Q8HR Hydralazine Hcl* (Hydralazine Hcl*), 50 MG PO EVERY 8 HOURS, (Reported) Insulin Glargine (Lantus), 35 UNITS SUBQ BID, (Reported) Lisinopril* (Lisinopril*), 20 MG ORAL DAILY, (Reported) Losartan Potassium (Cozaar), 100 MG ORAL DAILY, (Reported) Losartan Potassium* (Cozaar*), Unknown Dose ORAL DAILY, (Reported) Metolazone (Metolazone), 2.5 MG ORAL DAILY, (Reported) Metoprolol Succinate* (Metoprolol Succinate*), 50 MG ORAL EVERY 8 HOURS, ( Reported) Nifedipine Er* (Nifedipine Er*), 60 MG ORAL BID, (Reported) Nitroglycerin (Nitroglycerin), 0.4 MG SL PRN, (Reported) Pantoprazole* (Protonix*), Unknown Dose ORAL DAILY, (Reported) Potassium Chloride* (K-Dur*), 20 MEQ ORAL DAILY, (Reported) Sertraline Hcl* (Zoloft*), Unknown Dose ORAL DAILY, (Reported) Sevelamer Carbonate (Renvela), 2,400 MG ORAL THREE TIMES A DAY Warfarin Sod* (Warfarin Sod*), 7.5 MG ORAL DAILY, (Reported) Warfarin Sod* (Coumadin*), Unknown Dose ORAL DAILY, (Reported) Patient History Healthcare decision maker N Resuscitation status Full Code Advanced Directive on File Review of Systems ROS Narrative 12 point ROS negative except as note in the HPI. Physical Exam Last 24 Hour Vital Signs Date Time Temp Pulse Resp B/P (MAP) Pulse Ox O2 Delivery O2 Flow Rate FiO2 03/15/19 08:53 93/58 03/15/19 08:52 59 03/15/19 08:00 97.3 59 20 93/58 (70) 100 03/15/19 07:57 60 18 100 Nasal Cannula 2.0 28 03/15/19 07:57 100 Nasal Cannula 2.0 28 03/15/19 05:49 107/71 03/15/19 05:49 98 107/71 03/15/19 04:00 110 03/15/19 04:00 99.1 110 20 114/68 (83) 99 03/15/19 04:00 Nasal Cannula 3.0 03/15/19 00:00 Nasal Cannula 3.0 03/15/19 00:00 98.4 109 20 114/71 (85) 98 03/14/19 23:37 100 03/14/19 22:00 108/61 03/14/19 22:00 98 108/61 03/14/19 20:00 Nasal Cannula 3.0 03/14/19 20:00 97.7 102 20 98/56 (70) 97 03/14/19 19:23 107 03/14/19 16:00 109 03/14/19 16:00 98.6 102 18 121/65 (83) 94 03/14/19 16:00 Nasal Cannula 3.0 03/14/19 13:26 84 127/71 03/14/19 13:26 127/71 03/14/19 12:00 98.6 84 22 127/71 (89) 100 03/14/19 12:00 128 03/14/19 12:00 Nasal Cannula 3.0 Intake and Output 03/14/19 03/15/19 18:59 06:59 Intake Total 2720 ml 500 ml Balance 2720 ml 500 ml Intake Oral 720 ml 500 ml Hemodialysis 2000 ml # Bowel Movements 2 2 Laboratory Tests Test 03/14/19 15:15 03/15/19 05:30 Digoxin Level 0.5 NG/ML (0.5-2.0) 0.3 NG/ML (0.5-2.0) L White Blood Count 10.5 K/UL (4.8-10.8) Red Blood Count 3.96 M/UL (4.70-6.10) L Hemoglobin 13.2 G/DL (14.2-18.0) L Hematocrit 40.3 % (42.0-52.0) L Mean Corpuscular Volume 102 FL (80-99) H Mean Corpuscular Hemoglobin 33.3 PG (27.0-31.0) H Mean Corpuscular Hemoglobin Concent 32.7 G/DL (32.0-36.0) Red Cell Distribution Width 15.5 % (11.6-14.8) H Platelet Count 142 K/UL (150-450) L Mean Platelet Volume 8.1 FL (6.5-10.1) Neutrophils (%) (Auto) 81.2 % (45.0-75.0) H Lymphocytes (%) (Auto) 8.4 % (20.0-45.0) L Monocytes (%) (Auto) 7.1 % (1.0-10.0) Eosinophils (%) (Auto) 2.5 % (0.0-3.0) Basophils (%) (Auto) 0.8 % (0.0-2.0) Prothrombin Time 24.3 SEC (9.30-11.50) H Prothromb Time International Ratio 2.4 (0.9-1.1) H Sodium Level 137 MMOL/L (136-145) Potassium Level 3.6 MMOL/L (3.5-5.1) Chloride Level 95 MMOL/L (98-107) L Carbon Dioxide Level 28 MMOL/L (21-32) Anion Gap 14 mmol/L (5-15) Blood Urea Nitrogen 53 mg/dL (7-18) H Creatinine 7.7 MG/DL (0.55-1.30) H Estimat Glomerular Filtration Rate 8.5 mL/min (>60) Glucose Level 177 MG/DL (74-106) #H Hemoglobin A1c 9.5 % (4.3-6.0) H Uric Acid 5.3 MG/DL (2.6-7.2) Calcium Level 8.9 MG/DL (8.5-10.1) Phosphorus Level 6.9 MG/DL (2.5-4.9) H Magnesium Level 2.0 MG/DL (1.8-2.4) Iron Level 39 ug/dL (50-175) L Total Iron Binding Capacity 146 ug/dL (250-450) L Percent Iron Saturation 27 % (15-50) Unsaturated Iron Binding 107 ug/dL (112-346) L Ferritin 1540 NG/ML (8-388) H Total Bilirubin 0.5 MG/DL (0.2-1.0) Aspartate Amino Transf (AST/SGOT) 22 U/L (15-37) Alanine Aminotransferase (ALT/SGPT) 27 U/L (12-78) Alkaline Phosphatase 82 U/L (46-116) Troponin I 0.062 ng/mL (0.000-0.056) C-Reactive Protein, Quantitative 4.2 mg/dL (0.00-0.90) H Pro-B-Type Natriuretic Peptide 64715 pg/mL (0-125) H Total Protein 7.0 G/DL (6.4-8.2) Albumin 3.1 G/DL (3.4-5.0) L Globulin 3.9 g/dL Albumin/Globulin Ratio 0.8 (1.0-2.7) L Vitamin B12 Level 792 PG/ML (193-986) Folate 10.3 NG/ML (8.6-58.9) Height (Feet): 5 Height (Inches): 9.00 Weight (Pounds): 210 Medications Current Medications Medications (Trade) Dose Ordered Sig/Divya Route PRN Reason Start Time Stop Time Status Last Admin Dose Admin Acetaminophen (Tylenol) 650 mg Q4H PRN ORAL fever 03/13/19 19:45 04/12/19 19:44 03/14/19 21:17 Albuterol/ Ipratropium (Albuterol/ Ipratropium) 3 ml Q6HRT PRN HHN dyspnea 03/13/19 19:45 03/18/19 19:44 Aspirin (ASA) 81 mg DAILY ORAL 03/14/19 09:00 04/13/19 08:59 03/15/19 08:52 Clonidine HCl (Catapres Tab) 0.1 mg Q4H PRN ORAL for bp of over 160 syst 03/14/19 15:45 04/12/19 19:44 Dextrose (Dextrose 50%) 25 ml Q30M PRN IV Hypoglycemia 03/13/19 19:45 04/12/19 19:44 Dextrose (Dextrose 50%) 50 ml Q30M PRN IV Hypoglycemia 03/13/19 19:45 04/12/19 19:44 Digoxin (Lanoxin) 0.125 mg DAILY ORAL 03/14/19 09:00 04/13/19 08:59 03/15/19 08:52 Hydralazine HCl (Apresoline) 50 mg EVERY 8 HOURS ORAL 03/14/19 22:00 04/12/19 21:59 Insulin Aspart (NovoLOG) BEFORE MEALS AND HS SUBQ 03/13/19 21:00 04/12/19 20:59 03/15/19 05:48 Insulin Detemir (Levemir) 10 units DAILY SUBQ 03/14/19 11:00 04/13/19 10:59 03/15/19 08:58 Losartan Potassium (Cozaar) 100 mg DAILY ORAL 03/14/19 09:00 04/13/19 08:59 03/14/19 09:01 Metoprolol Tartrate (Lopressor) 50 mg EVERY 8 HOURS ORAL 03/13/19 22:00 04/12/19 21:59 03/14/19 13:26 Morphine Sulfate (Morphine Sulfate) 1 mg Q4H PRN IVP For Pain 03/13/19 19:45 03/20/19 19:44 03/13/19 23:33 Ondansetron HCl (Zofran) 4 mg Q6H PRN IVP Nausea & Vomiting 03/13/19 19:45 04/12/19 19:44 Pantoprazole (Protonix) 40 mg DAILY ORAL 03/15/19 09:00 04/14/19 08:59 03/15/19 08:52 Polyethylene Glycol (Miralax) 17 gm HSPRN PRN ORAL Constipation 03/13/19 19:45 04/12/19 19:44 Warfarin Sodium (Coumadin per pharmacy) 1 ea DAILY PRN MISC Per rx protocol 03/13/19 19:45 04/12/19 19:44 Warfarin Sodium (Coumadin) 5 mg COUMADIN ORAL 03/15/19 17:00 03/20/19 16:59 Zolpidem Tartrate (Ambien) 5 mg HSPRN PRN ORAL Insomnia 03/13/19 19:45 03/20/19 19:44 Objective Narrative Gen: NAD HEENT: NCAT, MMM, EOMI, PERRL, No Oral lesion, no scleral icterus, No ear pain NECK: full range of motion, supple, no meningismus, No LAD, No JVD LUNGS: CTAB, No W/C, No Accessory muscle use CARDS: RRR, S1, S2, No M/R/G, ABD: Soft, NT, ND, No R/G, + BS, No HSM, No Masses : Deferred Ext: C/C/E, Pulses 2+ B/L (DP, Rad): NEURO: A/O x 4, Strength and Sensation Grossly intact PSYCH: Mood/affect normal SKIN: Warm/dry, No rashes Assessment/Plan Assessment/Plan: 69 yo male with PMHx of ESRD on HD, DM, COPD, hypertension, A fib, left upper chest pacemaker, history of CVA, history of heart attack, gout, depression, left eye blindness who presented to the ED on 03/13/19 after a fall. Leukocytosis - resolved Likely secondary to fall Aferbile Hx of ear infection S/P Tx ESRD on HD DM COPD HTN A fib TN S/P pacemaker, CVA Gout Depression Left eye blindness PLAN - Continue to monitor off abx - PT/OT - Monitor CBC and Temps Thank you for this consult. We will continue to follow the patient during this hospitalization. Navneet Telles MD Mar 15, 2019 10:09
[2019-03-15] MEDS ORDERED: Morphine Sulfate 2mg/ml Inj(IV/IM USE ONLY) IVP PRN (11:23)
[2019-03-15] MEDS ORDERED: Miralax 17gm pkt ORAL PRN (11:23)
--- NOTE | 2019-03-15 11:24 | NUR ---
TRANSFER TO FLOOR: Patient transferred to [facility] [place] per александр. Report given to Carie Clark RN. Belongings and medications given t NOD. Verta informed of transfer. No signs of distress as of the moment.
--- NOTE | 2019-03-15 11:27 | NUR ---
PT Note PT tiana completed, treatment initiated. Patient's HR increased to 150's during gait training per monitor worker. Patient needs PT to increase his muscle strength and balance to improve his safety in mobility and gait to minimize his risk for falls. Addendum: 03/15/19 at 1128 by DAYNA SANCHEZ PT Amended: Links added.
--- NOTE | 2019-03-15 12:33 | NUR ---
NURSE NOTES: RECEIVED PATIENT A/A/OX4, IN BED. CALM AND COMFORTABLE. NO ACUTE RESP DISTRESS NOTED. PERSONAL BELONGINGS NOTED. DENTURES UPPER/LOWER @ BEDSIDE. ON O2 2L VIA NC. HOB ELEVATED. BLE ELEVATED WITH PILLOWS. KEEP BED IN THE LOWEST POSITION. SIDERAILS ARE UP X3. CALL LIGHT IS WITHIN REACH. WILL CONT TO MONITOR.
[2019-03-15] MEDS ORDERED: Albuterol/Ipratropium 3ml neb HHN PRN (13:00)
--- NOTE | 2019-03-15 13:59 | Nephrology Progress Note ---
Assessment/Plan Problem List: (1) ESRF (end stage renal failure) (2) Hypotension (3) Elevated troponin I level (4) Atrial fibrillation with RVR (5) Anemia Assessment ESRD CHF At [facility] with FVR DM- High BS HTN , NOW LOW BP Anemia Elevated Troponin I COPD recent ear infection Plan Hold BP meds HD 03/14 again 03/16 Optimize cardiac condition BP and BS check and control renal diet Phos binders per cardiology per orders Subjective ROS Limited/Unobtainable: No Constitutional: Reports: malaise, other - more alert and responsive Objective Objective Last 24 Hour Vital Signs Date Time Temp Pulse Resp B/P (MAP) Pulse Ox O2 Delivery O2 Flow Rate FiO2 03/15/19 13:46 106 94/58 03/15/19 13:46 94/58 03/15/19 13:45 106 94/58 (70) 03/15/19 12:00 Nasal Cannula 3.0 03/15/19 12:00 98.0 90 20 101/66 (78) 97 03/15/19 09:00 103 03/15/19 08:53 93/58 03/15/19 08:52 59 03/15/19 08:00 97.3 59 20 93/58 (70) 100 03/15/19 08:00 Nasal Cannula 3.0 03/15/19 07:57 60 18 100 Nasal Cannula 2.0 28 03/15/19 07:57 100 Nasal Cannula 2.0 28 03/15/19 05:49 107/71 03/15/19 05:49 98 107/71 03/15/19 04:00 110 03/15/19 04:00 99.1 110 20 114/68 (83) 99 03/15/19 04:00 Nasal Cannula 3.0 03/15/19 00:00 Nasal Cannula 3.0 03/15/19 00:00 98.4 109 20 114/71 (85) 98 03/14/19 23:37 100 03/14/19 22:00 108/61 03/14/19 22:00 98 108/61 03/14/19 20:00 Nasal Cannula 3.0 03/14/19 20:00 97.7 102 20 98/56 (70) 97 03/14/19 19:23 107 03/14/19 16:00 109 03/14/19 16:00 98.6 102 18 121/65 (83) 94 03/14/19 16:00 Nasal Cannula 3.0 Intake and Output 03/14/19 03/15/19 19:00 07:00 Intake Total 2720 ml 500 ml Balance 2720 ml 500 ml Intake Oral 720 ml 500 ml Hemodialysis 2000 ml # Bowel Movements 2 2 Laboratory Tests 03/14/19 15:15: Digoxin Level 0.5 03/15/19 05:30: Digoxin Level 0.3L, White Blood Count 10.5, Red Blood Count 3.96L, Hemoglobin 13.2L, Hematocrit 40.3L, Mean Corpuscular Volume 102H, Mean Corpuscular Hemoglobin 33.3H, Mean Corpuscular Hemoglobin Concent 32.7, Red Cell Distribution Width 15.5H, Platelet Count 142L, Mean Platelet Volume 8.1, Neutrophils (%) (Auto) 81.2H, Lymphocytes (%) (Auto) 8.4L, Monocytes (%) (Auto) 7.1, Eosinophils (%) (Auto) 2.5, Basophils (%) (Auto) 0.8, Prothrombin Time 24.3H, Prothromb Time International Ratio 2.4H, Sodium Level 137, Potassium Level 3.6, Chloride Level 95L, Carbon Dioxide Level 28, Anion Gap 14, Blood Urea Nitrogen 53H, Creatinine 7.7H, Estimat Glomerular Filtration Rate 8.5, Glucose Level 177#H, Hemoglobin A1c 9.5H, Uric Acid 5.3, Calcium Level 8.9, Phosphorus Level 6.9H, Magnesium Level 2.0, Iron Level 39L, Total Iron Binding Capacity 146L, Percent Iron Saturation 27, Unsaturated Iron Binding 107L, Ferritin 1540H, Total Bilirubin 0.5, Aspartate Amino Transf (AST/SGOT) 22, Alanine Aminotransferase (ALT/SGPT) 27, Alkaline Phosphatase 82, Troponin I 0.062H, C-Reactive Protein, Quantitative 4.2H, Pro-B-Type Natriuretic Peptide 00789G, Total Protein 7.0, Albumin 3.1L, Globulin 3.9, Albumin/Globulin Ratio 0.8L, Vitamin B12 Level 792, Folate 10.3 Height (Feet): 5 Height (Inches): 9.00 Weight (Pounds): 210 Francisco Javier Abraham MD Mar 15, 2019 13:59
[2019-03-15] MEDS ORDERED: Metoprolol Tartrate 50mg tab ORAL SCH (14:00)
[2019-03-15] MEDS ORDERED: HydrALAZINE 50mg tab ORAL SCH (14:00)
--- NOTE | 2019-03-15 14:00 | NUR ---
NURSE NOTES: held the 1400 meds due to SBP <110. patient is calm and verbally responsive. appetite is excellent. no acute resp distress noted. will cont to monitor.
--- NOTE | 2019-03-15 16:02 | NUR ---
NURSE NOTES: relayed 2D echo result to Eliana Milner NP. per eliana cardio will be seeing patient. will cont to monitor.
[2019-03-15] MEDS ORDERED: Warfarin Sodium 5mg ORAL SCH (17:00)
[2019-03-15] MEDS: Docusate 100mg cap ORAL SCH (17:17)
[2019-03-15] MEDS: Warfarin Sodium 5mg ORAL SCH (17:17)
[2019-03-15] MEDS ORDERED: RENA-VITE TABL0.8 M1 PO (17:37)
[2019-03-15] MEDS ORDERED: SERTRALINE HCL50 MG ORAL (17:37)
[2019-03-15] MEDS ORDERED: TRADJENTA5 MG PO (17:37)
[2019-03-15] MEDS ORDERED: WARFARIN SODIUM5 MG ORAL (17:37)
[2019-03-15] MEDS ORDERED: ISOSORBIDE MONO30 M1 PO (17:37)
[2019-03-15] MEDS ORDERED: LOPERAMIDE2 M1 PO (17:37)
[2019-03-15] MEDS ORDERED: CALCIUM ACETAT667 MG PO (17:37)
[2019-03-15] MEDS ORDERED: ABILIFY15 MG ORAL (17:37)
[2019-03-15] MEDS ORDERED: LOSARTAN POTASS50 MG ORAL (17:37)
[2019-03-15] MEDS ORDERED: ATORVASTATIN CA40 MG ORAL (17:37)
[2019-03-15] MEDS ORDERED: METOPROLOL SUC100 MG ORAL (17:37)
[2019-03-15] MEDS ORDERED: METOLAZONE5 MG PO (17:37)
[2019-03-15] MEDS ORDERED: VENTOLIN HFA18 GM INH (17:37)
--- NOTE | 2019-03-15 19:13 | NUR ---
NURSE NOTES: called [facility] and spoke with Valeria to sched for 03/16. awaiting for a callback to confirm. endorsed to Rita.
--- NOTE | 2019-03-15 19:14 | NUR ---
HAND-OFF: Report given to Rita.
--- NOTE | 2019-03-15 19:30 | NUR ---
NURSE NOTES: RECEIVED PATIENT LYING IN BED, AWAKE, ALERT/ORIENTED X4, VERBALLY RESPONSIVE, DENIES PAIN. NO SIGNS AND SYMPTOMS OF ACUTE CARDIO RESPIRATORY DISTRESS/SHORTNESS OF BREATH, DENIES CHEST PAIN. HD PATIENT/RIGHT THIGH PERMACATH, HD 03/14/19 2L REMOVED. ABDOMEN SOFT/NON DISTENDED/NON TENDER, NO N/V/D. URINAL AT BEDSIDE FOR PATIENT USAGE. SIDE RAILS UP X3/BED IN LOWEST POSITION FOR SAFETY. CALL LIGHT WITHIN REACH. NAD. CONTINUE WITH CURRENT PLAN OF CARE.
[2019-03-15] MEDS ORDERED: Zolpidem 5mg tab ORAL PRN (19:45)
[2019-03-16] VITALS: BP 135/71
[2019-03-16 04:00] VITALS: BP 131/79
[2019-03-16] MEDS: Metoprolol Tartrate 50mg tab ORAL SCH (06:00)
[2019-03-16] MEDS: NovoLOG Insulin Flexpen SUBQ SCH ×4 (06:28→21:00)
[2019-03-16 06:57] LABS: INR 2.5 (0.9-1.1)
--- NOTE | 2019-03-16 07:19 | NUR ---
HAND-OFF: Report given to KALEIGH ONTIVEROS.
[2019-03-16 07:27] LABS: ANION GAP 16 mmol/L (5-15); BLOOD UREA NITROGEN 69 mg/dL (7-18); CALCIUM 8.3 MG/DL (8.5-10.1); CARBON DIOXIDE 25 MMOL/L (21-32); CHLORIDE 94 MMOL/L (98-107); CREATININE 10.1 MG/DL (0.55-1.30); SODIUM 135 MMOL/L (136-145)
[2019-03-16 07:39] LABS: BASOPHILS % (AUTO) 0.9 % (0.0-2.0); EOSINOPHILS % (AUTO) 3.8 % (0.0-3.0); HEMATOCRIT 38.3 % (42.0-52.0); HEMOGLOBIN 12.7 G/DL (14.2-18.0); LYMPHOCYTES % (AUTO) 16.1 % (20.0-45.0); MEAN CORPUSCULAR VOLUME 99 FL (80-99); MONOCYTES % (AUTO) 11.5 % (1.0-10.0); NEUTROPHILS % (AUTO) 67.8 % (45.0-75.0); PLATELET COUNT 127 K/UL (150-450); RED BLOOD COUNT 3.89 M/UL (4.70-6.10); RED CELL DISTRIBUTION WIDTH 15.2 % (11.6-14.8); WHITE BLOOD COUNT 8.4 K/UL (4.8-10.8)
[2019-03-16 08:00] VITALS: BP 115/61
--- NOTE | 2019-03-16 08:20 | NUR ---
RADIOLOGY: PCXR COMPLETED 0815 HRS. NF
--- NOTE | 2019-03-16 08:32 | NUR ---
NURSE NOTES: received report from Rita FARRIS. Pt in bed awake having breakfast. Pt on teletypesetter monitor no signs of Cardiac or respiratory distress. Bed in lowest position and locked. Call light within reach. Will continue to follow plan of care. Left thigh AV shunt will have dialysis today. Will continue plan of care.
[2019-03-16] MEDS ORDERED: Digoxin 0.125mg tab ORAL SCH (09:00)
[2019-03-16] MEDS ORDERED: Losartan 50mg tab ORAL SCH ×2 (09:00)
[2019-03-16] MEDS: Digoxin 0.125mg tab ORAL SCH (09:00)
[2019-03-16 09:18] LABS: ALANINE AMINOTRANSFERASE 21 U/L (12-78); ALKALINE PHOSPHATASE 77 U/L (46-116); ASPARTATE AMINO TRANSFERASE 19 U/L (15-37); BILIRUBIN,DIRECT 0.1 MG/DL (0.0-0.3); BILIRUBIN,TOTAL 0.4 MG/DL (0.2-1.0); PHOSPHORUS 8.9 MG/DL (2.5-4.9)
[2019-03-16] MEDS: Aspirin Baby 81mg ORAL SCH (09:27)
[2019-03-16] MEDS: Docusate 100mg cap ORAL SCH ×3 (09:28→17:42)
[2019-03-16] MEDS: Levemir Flexpen SUBQ SCH (09:36)
[2019-03-16] MEDS ORDERED: Tubing IV Secondary IV ONE (09:36)
--- NOTE | 2019-03-16 09:45 | NUR ---
PT NOTE Attempted to see patient for PT treatment. Resting HR currently in the 120's, Nick marsh RN requesting to defer treatment at this time. Will re-attempt later as schedule permits or follow up tomorrow. Azalia cha RN notified.
--- NOTE | 2019-03-16 10:00 | Nephrology Progress Note ---
Assessment/Plan Problem List: (1) ESRF (end stage renal failure) (2) Hypotension (3) Elevated troponin I level (4) Atrial fibrillation with RVR (5) Anemia Assessment ESRD CHF At fib with FVR DM- High BS HTN , NOW LOW BP Anemia Elevated Troponin I COPD recent ear infection Plan Hold BP meds HD 03/14 again 03/16 - NO HEPARIN during HD Optimize cardiac condition BP and BS check and control renal diet adjust Phos binder doses per cardiology per orders Subjective ROS Limited/Unobtainable: No Constitutional: Reports: malaise Objective Objective Last 24 Hour Vital Signs Date Time Temp Pulse Resp B/P (MAP) Pulse Ox O2 Delivery O2 Flow Rate FiO2 03/16/19 08:00 98.0 75 18 115/61 (79) 97 03/16/19 06:00 79 111/63 03/16/19 04:00 Nasal Cannula 3.0 03/16/19 04:00 98.9 113 19 131/79 (96) 100 03/16/19 04:00 113 03/16/19 00:00 104 03/16/19 00:00 98.2 104 19 135/71 (92) 100 03/15/19 21:26 75 111/72 03/15/19 20:15 99 Nasal Cannula 2.0 28 03/15/19 20:14 107 18 99 Nasal Cannula 2.0 28 03/15/19 20:00 104 03/15/19 20:00 Nasal Cannula 3.0 03/15/19 20:00 98.8 104 18 131/72 (91) 99 03/15/19 15:54 98.6 112 18 109/64 (79) 100 03/15/19 13:46 106 94/58 03/15/19 13:46 94/58 03/15/19 13:45 106 94/58 (70) 03/15/19 12:00 Nasal Cannula 3.0 03/15/19 12:00 98.0 90 20 101/66 (78) 97 Intake and Output 03/15/19 03/16/19 18:59 06:59 Intake Total 240 ml 60 ml Output Total 150 ml 100 ml Balance 90 ml -40 ml Intake Oral 240 ml 60 ml Output Urine Total 150 ml 100 ml Laboratory Tests 03/16/19 05:20: Prothrombin Time 24.7H, Prothromb Time International Ratio 2.5H, Sodium Level 135L, Potassium Level 4.0, Chloride Level 94L, Carbon Dioxide Level 25, Anion Gap 16H, Blood Urea Nitrogen 69H, Creatinine 10.1H, Estimat Glomerular Filtration Rate 6.2, Glucose Level 146H, Calcium Level 8.3L 03/16/19 06:27: White Blood Count 8.4, Red Blood Count 3.89L, Hemoglobin 12.7L, Hematocrit 38.3L , Mean Corpuscular Volume 99, Mean Corpuscular Hemoglobin 32.8H, Mean Corpuscular Hemoglobin Concent 33.2, Red Cell Distribution Width 15.2H, Platelet Count 127L, Mean Platelet Volume 8.1, Neutrophils (%) (Auto) 67.8, Lymphocytes (%) (Auto) 16.1L, Monocytes (%) (Auto) 11.5H, Eosinophils (%) (Auto ) 3.8H, Basophils (%) (Auto) 0.9 03/16/19 06:47: Phosphorus Level 8.9H, Total Bilirubin 0.4, Direct Bilirubin 0.1, Aspartate Amino Transf (AST/SGOT) 19, Alanine Aminotransferase (ALT/SGPT) 21, Alkaline Phosphatase 77, Total Protein 6.8, Albumin 3.0L Height (Feet): 5 Height (Inches): 9.00 Weight (Pounds): 210 General Appearance: no apparent distress Cardiovascular: normal rate Respiratory/Chest: decreased breath sounds Abdomen: soft Objective no change Francisco Javier Abraham MD Mar 16, 2019 10:00
--- NOTE | 2019-03-16 10:45 | Diagnostic Imaging Report ---
Indication: Dyspnea Comparison: 03/13/2019 A single view chest radiograph was obtained. Findings: Pulmonary vascularity is mildly prominent but stable. Heart is enlarged. Pacemaker again noted on the left. Minimal right perihilar platelike atelectasis noted. IMPRESSION: Minimal right perihilar atelectasis. No change otherwise
--- NOTE | 2019-03-16 11:26 | Pulmonology Progress Note ---
Assessment/Plan Problems: (1) Atrial fibrillation with RVR (2) Anemia (3) COPD (chronic obstructive pulmonary disease) (4) Pulmonary hypertension (5) ESRF (end stage renal failure) (6) Diabetes (7) Alzheimer's dementia Assessment/Plan rate control respiratory treatment adjust cardiac meds HD by nephrology anticoagulation by cardiology sliding scale pt/ot Subjective ROS Limited/Unobtainable: No Interval Events: heart rate at 110 Constitutional: Reports: no symptoms HEENT: Repors: no symptoms Allergies: Coded Allergies: No Known Allergies (Verified , 07/21/11) Objective Last 24 Hour Vital Signs Date Time Temp Pulse Resp B/P (MAP) Pulse Ox O2 Delivery O2 Flow Rate FiO2 03/16/19 08:00 98.0 75 18 115/61 (79) 97 03/16/19 06:00 79 111/63 03/16/19 04:00 Nasal Cannula 3.0 03/16/19 04:00 98.9 113 19 131/79 (96) 100 03/16/19 04:00 113 03/16/19 00:00 104 03/16/19 00:00 98.2 104 19 135/71 (92) 100 03/15/19 21:26 75 111/72 03/15/19 20:15 99 Nasal Cannula 2.0 28 03/15/19 20:14 107 18 99 Nasal Cannula 2.0 28 03/15/19 20:00 104 03/15/19 20:00 Nasal Cannula 3.0 03/15/19 20:00 98.8 104 18 131/72 (91) 99 03/15/19 15:54 98.6 112 18 109/64 (79) 100 03/15/19 13:46 106 94/58 03/15/19 13:46 94/58 03/15/19 13:45 106 94/58 (70) 03/15/19 12:00 Nasal Cannula 3.0 03/15/19 12:00 98.0 90 20 101/66 (78) 97 Intake and Output 03/15/19 03/16/19 18:59 06:59 Intake Total 240 ml 60 ml Output Total 150 ml 100 ml Balance 90 ml -40 ml Intake Oral 240 ml 60 ml Output Urine Total 150 ml 100 ml General Appearance: WD/WN HEENT: normocephalic, atraumatic Respiratory/Chest: chest wall non-tender, lungs clear Cardiovascular: normal peripheral pulses, normal rate Abdomen: normal bowel sounds, soft, non tender Genitourinary: normal external genitalia Extremities: no clubbing Skin: no rash 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 Complete 03/14/19 18:40 Rectum VRE Culture - Final NO VANCOMYCIN RESISTANT ENTEROCOCCUS ... Complete 03/13/19 18:40 Rectum - Final NO CARBAPENEM-RESISTANT ENTEROBACTERI... Complete Laboratory Tests 03/16/19 05:20: Prothrombin Time 24.7H, Prothromb Time International Ratio 2.5H, Sodium Level 135L, Potassium Level 4.0, Chloride Level 94L, Carbon Dioxide Level 25, Anion Gap 16H, Blood Urea Nitrogen 69H, Creatinine 10.1H, Estimat Glomerular Filtration Rate 6.2, Glucose Level 146H, Calcium Level 8.3L 03/16/19 06:27: White Blood Count 8.4, Red Blood Count 3.89L, Hemoglobin 12.7L, Hematocrit 38.3L , Mean Corpuscular Volume 99, Mean Corpuscular Hemoglobin 32.8H, Mean Corpuscular Hemoglobin Concent 33.2, Red Cell Distribution Width 15.2H, Platelet Count 127L, Mean Platelet Volume 8.1, Neutrophils (%) (Auto) 67.8, Lymphocytes (%) (Auto) 16.1L, Monocytes (%) (Auto) 11.5H, Eosinophils (%) (Auto ) 3.8H, Basophils (%) (Auto) 0.9 03/16/19 06:47: Phosphorus Level 8.9H, Total Bilirubin 0.4, Direct Bilirubin 0.1, Aspartate Amino Transf (AST/SGOT) 19, Alanine Aminotransferase (ALT/SGPT) 21, Alkaline Phosphatase 77, Total Protein 6.8, Albumin 3.0L Current Medications Medications (Trade) Dose Ordered Sig/Divya Route PRN Reason Start Time Stop Time Status Last Admin Dose Admin Acetaminophen (Tylenol) 650 mg Q4H PRN ORAL fever 03/15/19 11:23 04/14/19 11:22 Albuterol/ Ipratropium (Albuterol/ Ipratropium) 3 ml Q6HRT PRN HHN dyspnea 03/15/19 13:00 03/18/19 19:44 Aspirin (ASA) 81 mg DAILY ORAL 03/16/19 09:00 04/13/19 08:59 03/16/19 09:27 Clonidine HCl (Catapres Tab) 0.1 mg Q4H PRN ORAL for bp of over 160 syst 03/15/19 11:25 04/14/19 11:24 Dextrose (Dextrose 50%) 25 ml Q30M PRN IV Hypoglycemia 03/15/19 11:45 04/12/19 19:44 Dextrose (Dextrose 50%) 50 ml Q30M PRN IV Hypoglycemia 03/15/19 11:45 04/12/19 19:44 Digoxin (Lanoxin) 0.125 mg DAILY ORAL 03/16/19 09:00 04/13/19 08:59 Docusate Sodium (Colace) 100 mg THREE TIMES A DAY ORAL 03/15/19 18:00 04/14/19 17:59 03/16/19 09:28 Insulin Aspart (NovoLOG) BEFORE MEALS AND HS SUBQ 03/15/19 11:30 04/12/19 20:59 03/16/19 06:28 Insulin Detemir (Levemir) 10 units DAILY SUBQ 03/16/19 09:00 04/13/19 10:59 03/16/19 09:36 Metoprolol Tartrate (Lopressor) 50 mg EVERY 8 HOURS ORAL 03/15/19 14:00 04/12/19 21:59 Morphine Sulfate (Morphine Sulfate) 1 mg Q4H PRN IVP For Pain 03/15/19 11:23 03/22/19 11:22 Ondansetron HCl (Zofran) 4 mg Q6H PRN IVP Nausea & Vomiting 03/15/19 11:23 04/14/19 11:22 Pantoprazole (Protonix) 40 mg DAILY ORAL 03/16/19 09:00 04/14/19 08:59 03/16/19 09:29 Polyethylene Glycol (Miralax) 17 gm HSPRN PRN ORAL Constipation 03/15/19 11:23 04/14/19 11:22 Sevelamer Carbonate (Renvela) 2,400 mg THREE TIMES A DAY ORAL 03/16/19 13:00 04/14/19 17:59 Warfarin Sodium (Coumadin per pharmacy) 1 ea DAILY PRN MISC Per rx protocol 03/16/19 09:00 04/12/19 19:44 Warfarin Sodium (Coumadin) 5 mg COUMADIN ORAL 03/15/19 17:00 03/20/19 16:59 03/15/19 17:17 Zolpidem Tartrate (Ambien) 5 mg HSPRN PRN ORAL Insomnia 03/15/19 19:45 03/20/19 19:44 Luis Miguel Donoheu MD Mar 16, 2019 11:26
--- NOTE | 2019-03-16 11:32 | Cardiac Electrophysiology PN ---
Subjective Subjective [id number] Objective Last 24 Hour Vital Signs Date Time Temp Pulse Resp B/P (MAP) Pulse Ox O2 Delivery O2 Flow Rate FiO2 03/16/19 08:00 103 03/16/19 08:00 98.0 75 18 115/61 (79) 97 03/16/19 06:00 79 111/63 03/16/19 04:00 Nasal Cannula 3.0 03/16/19 04:00 98.9 113 19 131/79 (96) 100 03/16/19 04:00 113 03/16/19 00:00 104 03/16/19 00:00 98.2 104 19 135/71 (92) 100 03/15/19 21:26 75 111/72 03/15/19 20:15 99 Nasal Cannula 2.0 28 03/15/19 20:14 107 18 99 Nasal Cannula 2.0 28 03/15/19 20:00 104 03/15/19 20:00 Nasal Cannula 3.0 03/15/19 20:00 98.8 104 18 131/72 (91) 99 03/15/19 15:54 98.6 112 18 109/64 (79) 100 03/15/19 13:46 106 94/58 03/15/19 13:46 94/58 03/15/19 13:45 106 94/58 (70) 03/15/19 12:00 Nasal Cannula 3.0 03/15/19 12:00 98.0 90 20 101/66 (78) 97 Intake and Output 03/15/19 03/16/19 18:59 06:59 Intake Total 240 ml 60 ml Output Total 150 ml 100 ml Balance 90 ml -40 ml Intake Oral 240 ml 60 ml Output Urine Total 150 ml 100 ml Laboratory Tests Test 03/16/19 05:20 03/16/19 06:27 03/16/19 06:47 Prothrombin Time 24.7 SEC (9.30-11.50) H Prothromb Time International Ratio 2.5 (0.9-1.1) H Sodium Level 135 MMOL/L (136-145) L Potassium Level 4.0 MMOL/L (3.5-5.1) Chloride Level 94 MMOL/L (98-107) L Carbon Dioxide Level 25 MMOL/L (21-32) Anion Gap 16 mmol/L (5-15) H Blood Urea Nitrogen 69 mg/dL (7-18) H Creatinine 10.1 MG/DL (0.55-1.30) H Estimat Glomerular Filtration Rate 6.2 mL/min (>60) Glucose Level 146 MG/DL (74-106) H Calcium Level 8.3 MG/DL (8.5-10.1) L White Blood Count 8.4 K/UL (4.8-10.8) Red Blood Count 3.89 M/UL (4.70-6.10) L Hemoglobin 12.7 G/DL (14.2-18.0) L Hematocrit 38.3 % (42.0-52.0) L Mean Corpuscular Volume 99 FL (80-99) Mean Corpuscular Hemoglobin 32.8 PG (27.0-31.0) H Mean Corpuscular Hemoglobin Concent 33.2 G/DL (32.0-36.0) Red Cell Distribution Width 15.2 % (11.6-14.8) H Platelet Count 127 K/UL (150-450) L Mean Platelet Volume 8.1 FL (6.5-10.1) Neutrophils (%) (Auto) 67.8 % (45.0-75.0) Lymphocytes (%) (Auto) 16.1 % (20.0-45.0) L Monocytes (%) (Auto) 11.5 % (1.0-10.0) H Eosinophils (%) (Auto) 3.8 % (0.0-3.0) H Basophils (%) (Auto) 0.9 % (0.0-2.0) Phosphorus Level 8.9 MG/DL (2.5-4.9) H Total Bilirubin 0.4 MG/DL (0.2-1.0) Direct Bilirubin 0.1 MG/DL (0.0-0.3) Aspartate Amino Transf (AST/SGOT) 19 U/L (15-37) Alanine Aminotransferase (ALT/SGPT) 21 U/L (12-78) Alkaline Phosphatase 77 U/L (46-116) Total Protein 6.8 G/DL (6.4-8.2) Albumin 3.0 G/DL (3.4-5.0) L Microbiology Date/Time Source Procedure Growth Status 03/13/19 18:40 Nasal Nares MRSA Culture - Final NO METHICILLIN RESISTANT STAPH AUREUS... Complete 03/14/19 18:40 Rectum VRE Culture - Final NO VANCOMYCIN RESISTANT ENTEROCOCCUS ... Complete 03/13/19 18:40 Rectum - Final NO CARBAPENEM-RESISTANT ENTEROBACTERI... Complete Bandar Pina MD Mar 16, 2019 11:32
[2019-03-16 12:00] VITALS: BP 168/66
--- NOTE | 2019-03-16 13:20 | NUR ---
NURSE NOTES: pt receiving dialysis will give med once it is done.
--- NOTE | 2019-03-16 14:48 | NUR ---
NURSE NOTES: Dialysis out put for today 2L.
[2019-03-16 16:00] VITALS: BP 137/71
--- NOTE | 2019-03-16 16:52 | NUR ---
CASE MANAGEMENT:REVIEW 03/16/19 SI: AFIB W/RVR. COPD. 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
--- NOTE | 2019-03-16 17:10 | Consultation ---
Consult Note Consult Note ERROR Assessment/Plan ERROR Daryl Donaldson MD Mar 16, 2019 17:10
--- NOTE | 2019-03-16 17:32 | Diagnostic Imaging Report ---
APPROVED REPORT CPT Code: 75875 Present Symptoms Shortness of breath BILATERAL: Imaging reveals a patent deep venous system bilaterally. There is no evidence of thrombus within the femoral, popliteal or tibial segments. The greater saphenous veins are also within normal limits. Doppler indicates normal spontaneous flow within these segments.
[2019-03-16] MEDS: Warfarin Sodium 5mg ORAL SCH (17:43)
--- NOTE | 2019-03-16 18:22 | Infectious Diseases Prog Note ---
Assessment/Plan Assessment/Plan 69 yo male with PMHx of ESRD on HD, DM, COPD, hypertension, A fib, left upper chest pacemaker, history of CVA, history of heart attack, gout, depression, left eye blindness who presented to the ED on 03/13/19 after a fall. Leukocytosis - resolved Likely secondary to fall Aferbile Lt ear pain x few wks ( no hearling loss or tenderness ) Hx of ear infection S/P Tx ESRD on HD DM COPD HTN A fib WA S/P pacemaker, CVA Gout Depression Left eye blindness PLAN - Continue to monitor off abx - PT/OT - Monitor CBC and Temps - Ct of Temporal bone Subjective Allergies: Coded Allergies: No Known Allergies (Verified , 07/21/11) Subjective Rt ear pain Objective Vital Signs Last 24 Hour Vital Signs Date Time Temp Pulse Resp B/P (MAP) Pulse Ox O2 Delivery O2 Flow Rate FiO2 03/16/19 17:42 65 121/71 03/16/19 12:00 98.2 71 17 168/66 (100) 94 03/16/19 08:00 103 03/16/19 08:00 98.0 75 18 115/61 (79) 97 03/16/19 06:00 79 111/63 03/16/19 04:00 Nasal Cannula 3.0 03/16/19 04:00 98.9 113 19 131/79 (96) 100 03/16/19 04:00 113 03/16/19 00:00 104 03/16/19 00:00 98.2 104 19 135/71 (92) 100 03/15/19 21:26 75 111/72 03/15/19 20:15 99 Nasal Cannula 2.0 28 03/15/19 20:14 107 18 99 Nasal Cannula 2.0 28 03/15/19 20:00 104 03/15/19 20:00 Nasal Cannula 3.0 03/15/19 20:00 98.8 104 18 131/72 (91) 99 Height (Feet): 5 Height (Inches): 9.00 Weight (Pounds): 210 HEENT: mucous membranes moist Respiratory/Chest: normal breath sounds Cardiovascular: regular rhythm Abdomen: non distended Microbiology Date/Time Source Procedure Growth Status 03/13/19 18:40 Nasal Nares MRSA Culture - Final NO METHICILLIN RESISTANT STAPH AUREUS... Complete 03/14/19 18:40 Rectum VRE Culture - Final NO VANCOMYCIN RESISTANT ENTEROCOCCUS ... Complete 03/13/19 18:40 Rectum - Final NO CARBAPENEM-RESISTANT ENTEROBACTERI... Complete Laboratory Tests Test 03/16/19 05:20 03/16/19 06:27 03/16/19 06:47 Prothrombin Time 24.7 SEC (9.30-11.50) H Prothromb Time International Ratio 2.5 (0.9-1.1) H Sodium Level 135 MMOL/L (136-145) L Potassium Level 4.0 MMOL/L (3.5-5.1) Chloride Level 94 MMOL/L (98-107) L Carbon Dioxide Level 25 MMOL/L (21-32) Anion Gap 16 mmol/L (5-15) H Blood Urea Nitrogen 69 mg/dL (7-18) H Creatinine 10.1 MG/DL (0.55-1.30) H Estimat Glomerular Filtration Rate 6.2 mL/min (>60) Glucose Level 146 MG/DL (74-106) H Calcium Level 8.3 MG/DL (8.5-10.1) L White Blood Count 8.4 K/UL (4.8-10.8) Red Blood Count 3.89 M/UL (4.70-6.10) L Hemoglobin 12.7 G/DL (14.2-18.0) L Hematocrit 38.3 % (42.0-52.0) L Mean Corpuscular Volume 99 FL (80-99) Mean Corpuscular Hemoglobin 32.8 PG (27.0-31.0) H Mean Corpuscular Hemoglobin Concent 33.2 G/DL (32.0-36.0) Red Cell Distribution Width 15.2 % (11.6-14.8) H Platelet Count 127 K/UL (150-450) L Mean Platelet Volume 8.1 FL (6.5-10.1) Neutrophils (%) (Auto) 67.8 % (45.0-75.0) Lymphocytes (%) (Auto) 16.1 % (20.0-45.0) L Monocytes (%) (Auto) 11.5 % (1.0-10.0) H Eosinophils (%) (Auto) 3.8 % (0.0-3.0) H Basophils (%) (Auto) 0.9 % (0.0-2.0) Phosphorus Level 8.9 MG/DL (2.5-4.9) H Total Bilirubin 0.4 MG/DL (0.2-1.0) Direct Bilirubin 0.1 MG/DL (0.0-0.3) Aspartate Amino Transf (AST/SGOT) 19 U/L (15-37) Alanine Aminotransferase (ALT/SGPT) 21 U/L (12-78) Alkaline Phosphatase 77 U/L (46-116) Total Protein 6.8 G/DL (6.4-8.2) Albumin 3.0 G/DL (3.4-5.0) L Current Medications Medications (Trade) Dose Ordered Sig/Divya Route PRN Reason Start Time Stop Time Status Last Admin Dose Admin Acetaminophen (Tylenol) 650 mg Q4H PRN ORAL fever 03/15/19 11:23 04/14/19 11:22 Albuterol/ Ipratropium (Albuterol/ Ipratropium) 3 ml Q6HRT PRN HHN dyspnea 03/15/19 13:00 03/18/19 19:44 Aspirin (ASA) 81 mg DAILY ORAL 03/16/19 09:00 04/13/19 08:59 03/16/19 09:27 Clonidine HCl (Catapres Tab) 0.1 mg Q4H PRN ORAL for bp of over 160 syst 03/15/19 11:25 04/14/19 11:24 Dextrose (Dextrose 50%) 25 ml Q30M PRN IV Hypoglycemia 03/15/19 11:45 04/12/19 19:44 Dextrose (Dextrose 50%) 50 ml Q30M PRN IV Hypoglycemia 03/15/19 11:45 04/12/19 19:44 Digoxin (Lanoxin) 0.125 mg DAILY ORAL 03/16/19 09:00 04/13/19 08:59 Docusate Sodium (Colace) 100 mg THREE TIMES A DAY ORAL 03/15/19 18:00 04/14/19 17:59 03/16/19 17:42 Insulin Aspart (NovoLOG) BEFORE MEALS AND HS SUBQ 03/15/19 11:30 04/12/19 20:59 03/16/19 17:35 Insulin Detemir (Levemir) 10 units DAILY SUBQ 03/16/19 09:00 04/13/19 10:59 03/16/19 09:36 Metoprolol Tartrate (Lopressor) 100 mg BID ORAL 03/16/19 18:00 04/12/19 21:59 03/16/19 17:42 Morphine Sulfate (Morphine Sulfate) 1 mg Q4H PRN IVP For Pain 03/15/19 11:23 03/22/19 11:22 Ondansetron HCl (Zofran) 4 mg Q6H PRN IVP Nausea & Vomiting 03/15/19 11:23 04/14/19 11:22 Pantoprazole (Protonix) 40 mg DAILY ORAL 03/16/19 09:00 04/14/19 08:59 03/16/19 09:29 Polyethylene Glycol (Miralax) 17 gm HSPRN PRN ORAL Constipation 03/15/19 11:23 04/14/19 11:22 Sevelamer Carbonate (Renvela) 2,400 mg THREE TIMES A DAY ORAL 03/16/19 13:00 04/14/19 17:59 03/16/19 15:25 Warfarin Sodium (Coumadin per pharmacy) 1 ea DAILY PRN MISC Per rx protocol 03/16/19 09:00 04/12/19 19:44 Warfarin Sodium (Coumadin) 5 mg COUMADIN ORAL 03/15/19 17:00 03/20/19 16:59 03/16/19 17:43 Zolpidem Tartrate (Ambien) 5 mg HSPRN PRN ORAL Insomnia 03/15/19 19:45 03/20/19 19:44 Daryl Donaldson MD Mar 16, 2019 18:22
--- NOTE | 2019-03-16 19:52 | Cardiology Progress Note ---
Assessment/Plan Assessment/Plan heart rate cotrol dialysis acei iff ok with renal ecotrin lunlikey ischmeic event in setting of sig tachy wiht min ab cardaid enzyem in settingof esrd will follow rate control with bb restarted by dr middleton coumadin for strok prevention Objective Last 24 Hour Vital Signs Date Time Temp Pulse Resp B/P (MAP) Pulse Ox O2 Delivery O2 Flow Rate FiO2 03/16/19 17:42 65 121/71 03/16/19 12:00 98.2 71 17 168/66 (100) 94 03/16/19 08:00 103 03/16/19 08:00 98.0 75 18 115/61 (79) 97 03/16/19 06:00 79 111/63 03/16/19 04:00 Nasal Cannula 3.0 03/16/19 04:00 98.9 113 19 131/79 (96) 100 03/16/19 04:00 113 03/16/19 00:00 104 03/16/19 00:00 98.2 104 19 135/71 (92) 100 03/15/19 21:26 75 111/72 03/15/19 20:15 99 Nasal Cannula 2.0 28 03/15/19 20:14 107 18 99 Nasal Cannula 2.0 28 03/15/19 20:00 104 03/15/19 20:00 Nasal Cannula 3.0 03/15/19 20:00 98.8 104 18 131/72 (91) 99 Intake and Output 03/15/19 03/16/19 19:00 07:00 Intake Total 240 ml 60 ml Output Total 150 ml 100 ml Balance 90 ml -40 ml Intake Oral 240 ml 60 ml Output Urine Total 150 ml 100 ml Laboratory Tests Test 03/16/19 05:20 03/16/19 06:27 03/16/19 06:47 Prothrombin Time 24.7 SEC (9.30-11.50) H Prothromb Time International Ratio 2.5 (0.9-1.1) H Sodium Level 135 MMOL/L (136-145) L Potassium Level 4.0 MMOL/L (3.5-5.1) Chloride Level 94 MMOL/L (98-107) L Carbon Dioxide Level 25 MMOL/L (21-32) Anion Gap 16 mmol/L (5-15) H Blood Urea Nitrogen 69 mg/dL (7-18) H Creatinine 10.1 MG/DL (0.55-1.30) H Estimat Glomerular Filtration Rate 6.2 mL/min (>60) Glucose Level 146 MG/DL (74-106) H Calcium Level 8.3 MG/DL (8.5-10.1) L White Blood Count 8.4 K/UL (4.8-10.8) Red Blood Count 3.89 M/UL (4.70-6.10) L Hemoglobin 12.7 G/DL (14.2-18.0) L Hematocrit 38.3 % (42.0-52.0) L Mean Corpuscular Volume 99 FL (80-99) Mean Corpuscular Hemoglobin 32.8 PG (27.0-31.0) H Mean Corpuscular Hemoglobin Concent 33.2 G/DL (32.0-36.0) Red Cell Distribution Width 15.2 % (11.6-14.8) H Platelet Count 127 K/UL (150-450) L Mean Platelet Volume 8.1 FL (6.5-10.1) Neutrophils (%) (Auto) 67.8 % (45.0-75.0) Lymphocytes (%) (Auto) 16.1 % (20.0-45.0) L Monocytes (%) (Auto) 11.5 % (1.0-10.0) H Eosinophils (%) (Auto) 3.8 % (0.0-3.0) H Basophils (%) (Auto) 0.9 % (0.0-2.0) Phosphorus Level 8.9 MG/DL (2.5-4.9) H Total Bilirubin 0.4 MG/DL (0.2-1.0) Direct Bilirubin 0.1 MG/DL (0.0-0.3) Aspartate Amino Transf (AST/SGOT) 19 U/L (15-37) Alanine Aminotransferase (ALT/SGPT) 21 U/L (12-78) Alkaline Phosphatase 77 U/L (46-116) Total Protein 6.8 G/DL (6.4-8.2) Albumin 3.0 G/DL (3.4-5.0) L Microbiology Date/Time Source Procedure Growth Status 03/14/19 18:40 Rectum VRE Culture - Final NO VANCOMYCIN RESISTANT ENTEROCOCCUS ... Complete Preston Perla MD Mar 16, 2019 19:52
[2019-03-16 21:00] VITALS: BP 108/68
--- NOTE | 2019-03-16 21:35 | NUR ---
HAND-OFF: Report given to Ben FARRIS.
[2019-03-16] MEDS: Atorvastatin 20mg tab ORAL SCH (21:41)
--- NOTE | 2019-03-16 22:30 | Consultation ---
DATE OF CONSULTATION: 03/16/2019 CARDIOLOGY CONSULTATION CONSULTING PHYSICIAN: Bandar Pina M.D. REFERRING PHYSICIAN: Luis Miguel Donohue M.D. REASON FOR CONSULTATION: Atrial fibrillation with rapid ventricular response and the patient has a history of pacemaker. HISTORY OF PRESENT ILLNESS: The patient is a 69-year-old gentleman with history of hypertension, diabetes, COPD, history of permanent pacemaker implantation, has history of CVA, , left eye blindness, presented after he had a mechanical fall. The patient denies loss of consciousness. EKG on 03/13/2019 showed atrial fibrillation with rapid ventricular response, heart rate of around 150 beats per minute. The patient received IV Cardizem and heart rate has slightly improved. At the time of my evaluation, the patient has no chest pain or palpitation. Heart rate is 110 to 120s. REVIEW OF SYSTEMS: Negative other than what was mentioned in the history of present illness. PAST MEDICAL HISTORY: As mentioned above. FAMILY HISTORY: Noncontributory. MEDICATIONS: Per reconciliation. PHYSICAL EXAMINATION: VITAL SIGNS: Show blood pressure of 115/61, pulse is 110 to 120, respirations 18, and temperature is 98. HEAD AND NECK: Shows no JVD or carotid bruit. LUNGS: Decreased breath sounds. CARDIOVASCULAR: Irregularly irregular. S1 and S2 with no gallop or murmur. ABDOMEN: Soft. EXTREMITIES: No pitting edema. LABORATORY AND DIAGNOSTIC STUDIES: His EKG showed atrial fibrillation with rapid ventricular response of 148. Labs show white count of 8.4, hemoglobin 12.7, hematocrit of 38.3, and platelet count of 127,000. Sodium 135, potassium 4.0, BUN of 69, creatinine of 10, and glucose of 146. Troponin is 0.08, 0.06, and 0.09. ASSESSMENT AND PLAN: 1. Atrial fibrillation with rapid ventricular response. Digoxin level is only 0.3. He is on digoxin 0.125 mg daily and metoprolol 50 mg every 8 hours, I will increase to 100 mg b.i.d. add Cardizem to his medical regimen. 2. Status post pacemaker. The brand is not clear. We will try to find the pacemaker by interrogating for further evaluation. 3. Troponin elevation. The patient does not have any chest pain, likely due to renal failure. 4. End-stage renal disease, on hemodialysis. 5. Cardiomyopathy. Echocardiogram for ejection fraction of 35% to 40%. The patient is already on hemodialysis and metoprolol. After blood pressure is stabilized, we may add hydralazine and nitrate to his medical regimen. 6. Diabetes, on insulin. It is also of note that the patient is also on anticoagulation with warfarin. INR today is 2.5. Thank you very much, Dr. Donohue, for allowing me to participate in the care of this patient. Please do not hesitate to contact me for any questions regarding my evaluation. Sincerely, Bandar Pina M.D. DR: ROSANGELA JOB#: [id number] CC:
[2019-03-17] VITALS: BP 123/79
--- NOTE | 2019-03-17 02:45 | Consultation ---
DATE OF CONSULTATION: 03/16/2019 CARDIOLOGY CONSULTATION CONSULTING PHYSICIAN: Preston Perla M.D. REFERRING PHYSICIAN: Luis Miguel Donohue M.D. REASON FOR REFERRAL: Atrial fibrillation. HISTORY OF PRESENT ILLNESS: This is an elderly gentleman who is somewhat of a poor historian. Information is obtained from the patient's chart. Apparently, the patient felt weak, called the paramedics, and was brought to the emergency room. [employer] run sheet was reviewed, they indicate that they found the patient sitting in a wheelchair in his living room. He stated that he was feeling weak and short of breath for 6 hours. He apparently was seen by his doctor on that day, was sent home and apparently fell on the way to his home. No loss of consciousness and the patient was brought to the emergency room at [facility]. When he was found, his documented blood pressure by the paramedics is 160/100, subsequently 98/51. He was brought to the emergency room at the [facility]. He has been admitted. He really did not have any chest pain. He does have a history of four pillows for comfort with breathing usage. No PND. He does not have dyspnea on exertion. He denies any pain, pressure, tightness, or heaviness in his chest. Denies any palpitations. Denies any dizziness or lightheadedness. PAST MEDICAL HISTORY: Positive for history of congestive heart failure, atrial fibrillation with rapid ventricular response, anemia, pulmonary hypertension, COPD, hypoxemia, renal insufficiency, systemic hypertension, hyperlipidemia, diabetes mellitus, anemia, diastolic heart failure. It has been noted on prior occasions as well. MEDICATIONS: His prior to admission medications according to the chart include albuterol, Abilify, aspirin 81 mg, Lipitor 40 mg, folic acid, Isordil, Imdur, Tradjenta, losartan, metolazone, metoprolol 100 mg daily, Zoloft, Renvela, and Coumadin 5 mg daily. SOCIAL HISTORY: He quit smoking and drinking and drug use many years ago, none at the present. REVIEW OF SYSTEMS: GASTROINTESTINAL: He does have some constipation. GENITOURINARY: Denies any discomfort on urination. PULMONARY: Denies coughing or wheezing. CONSTITUTIONAL: Denies fever, chills, or night sweats. PHYSICAL EXAMINATION: GENERAL: Shows to be an obese gentleman, in no respiratory distress. NECK: Supple. No jugular venous distention. LUNGS: Clear to auscultation and percussion. CARDIAC: Irregularly irregular. Borderline tachycardic. No heaves, thrills, or gallops noted. ABDOMEN: Soft and obese. Positive bowel sounds. EXTREMITIES: No edema. NEUROLOGICAL: He is awake, alert, responsive. LABORATORY AND DIAGNOSTIC DATA: Laboratory values, white count of 8.4, hemoglobin 12.7, platelet count of 127,000. Sodium 135, potassium 4.0, chloride 95, bicarbonate 25, BUN is 69, creatinine 10.0, glucose of 146, phosphorus is 8.9. His CRP is 4.2. His two sets of cardiac enzymes, 0.086 and 0.062, and a proBNP of 24,000, but a creatinine of 10. Albumin of 3.0. His B12 of 792 and folic acid of 10.3. Coags, INR of 2.5 and digoxin of 0.3. His chest x-ray shows minimal right basilar atelectasis. He did have a venous duplex study of his lower extremities that showed there was no evidence of deep venous thromboses. His electrocardiogram shows atrial fibrillation with rapid ventricular response with heart rates in the 148 range, no significant ST or T-wave abnormalities were noted despite the rapid heart rate. ASSESSMENT AND PLAN: 1. Atrial fibrillation, permanent. 2. History of hypertension. 3. End-stage renal disease, on hemodialysis. 4. Abnormal cardiac enzymes. 5. History of fall. 6. COPD. 7. Diabetes mellitus. 8. History of CVA. Dr. Donohue, this patient was seen in cardiac consultation. The patient's heart rate will be controlled with a combination of beta-blockers. He is on anticoagulation with INR therapeutic. His two sets of cardiac enzymes are minimally abnormal in light of creatinine of 10, really useless. Cardiac enzymes will be repeated. Echocardiogram has already been performed to be reviewed, ejection fraction of 35% to 40% with cardiomyopathy. I do not see any ischemia evaluation on this patient. Echocardiogram shows poor left ventricular systolic function. Review of the old chart indicates the patient has had global hypokinesis on prior occasions as well. This is suggestive of no cardiomyopathy and probable heart failure. In the setting of renal insufficiency, dialysis as planned by Dr. Abraham. The patient has been seen by Dr. Pina as well. Heart rate control will be provided with the use of beta-blockers. Anticoagulation for stroke prevention has already been initiated. The patient is therapeutic on his INR. Repeat cardiac enzymes will be ordered, although I suspect that the abnormality is likely secondary to renal insufficiency. Of note, significant tachycardia without any significantly elevated cardiac enzymes, likely ruling out patient for an acute ischemic event. Preston Perla M.D. DR: ANABELL JOB#: [id number] CC:
[2019-03-17 04:00] VITALS: BP 117/78
[2019-03-17] MEDS: NovoLOG Insulin Flexpen SUBQ SCH ×4 (06:18→22:09)
[2019-03-17 06:37] LABS: INR 2.3 (0.9-1.1)
--- NOTE | 2019-03-17 06:47 | NUR ---
PT. RESTING IN THE BED,DENIES DISCOMFORT,REPORT ENDORSE TO NURSE PEACOCK.
[2019-03-17 07:19] LABS: CHOLESTEROL 195 MG/DL (< 200); HDL CHOLESTEROL 49 MG/DL (40-60); TRIGLYCERIDES 100 MG/DL (30-150)
--- NOTE | 2019-03-17 07:26 | NUR ---
NURSE NOTES: received report from Ben Mota. Pt awake and having breakfast in bed. Pt on ekg monitor no signs of cardiac or respiratory distress. Bed in lowest position and locked. Call light within reach. Will continue to follow plan of care and monitor lab values.
[2019-03-17 08:00] VITALS: BP 130/77
[2019-03-17] MEDS: Levemir Flexpen SUBQ SCH (09:00)
[2019-03-17] MEDS: Docusate 100mg cap ORAL SCH ×3 (09:00→18:00)
[2019-03-17] MEDS: Aspirin Baby 81mg ORAL SCH (09:02)
[2019-03-17] MEDS: Digoxin 0.125mg tab ORAL SCH (09:02)
[2019-03-17 09:20] LABS: ANION GAP 14 mmol/L (5-15); BLOOD UREA NITROGEN 63 mg/dL (7-18); CALCIUM 8.5 MG/DL (8.5-10.1); CARBON DIOXIDE 26 MMOL/L (21-32); CHLORIDE 94 MMOL/L (98-107); CREATININE 8.7 MG/DL (0.55-1.30); POTASSIUM 4.4 MMOL/L (3.5-5.1); SODIUM 134 MMOL/L (136-145)
[2019-03-17 09:23] LABS: ALANINE AMINOTRANSFERASE 19 U/L (12-78); ALBUMIN 2.9 G/DL (3.4-5.0); ALBUMIN/GLOBULIN RATIO 0.8 (1.0-2.7); ALKALINE PHOSPHATASE 75 U/L (46-116); ASPARTATE AMINO TRANSFERASE 18 U/L (15-37); BILIRUBIN,TOTAL 0.4 MG/DL (0.2-1.0); PHOSPHORUS 6.1 MG/DL (2.5-4.9)
--- NOTE | 2019-03-17 09:46 | Infectious Diseases Prog Note ---
Assessment/Plan Assessment/Plan 69 yo male with PMHx of ESRD on HD, DM, COPD, hypertension, A fib, left upper chest pacemaker, history of CVA, history of heart attack, gout, depression, left eye blindness who presented to the ED on 03/13/19 after a fall. Leukocytosis - resolved Likely secondary to fall Aferbile Lt ear pain x few wks ( no hearling loss or tenderness ) Hx of ear infection S/P Tx ESRD on HD DM COPD HTN A fib OH S/P pacemaker, CVA Gout Depression Left eye blindness PLAN - Continue to monitor off abx as he is clinically stable - PT/OT - Monitor CBC and Temps - Ct of Temporal bone Subjective Allergies: Coded Allergies: No Known Allergies (Verified , 07/21/11) Subjective Aferbile Satting well on 3L NC No Leukocytosis Objective Vital Signs Last 24 Hour Vital Signs Date Time Temp Pulse Resp B/P (MAP) Pulse Ox O2 Delivery O2 Flow Rate FiO2 03/17/19 09:02 93 03/17/19 09:01 100 130/77 03/17/19 08:00 97.6 100 20 130/77 (94) 94 03/17/19 07:37 Nasal Cannula 3.0 03/17/19 07:00 80 20 99 Nasal Cannula 2.0 28 03/17/19 07:00 99 Nasal Cannula 2.0 28 03/17/19 04:00 Nasal Cannula 3.0 03/17/19 04:00 98.9 100 20 117/78 (91) 99 03/17/19 04:00 107 03/17/19 00:00 98.6 90 20 123/79 (94) 96 03/17/19 00:00 107 03/17/19 00:00 Nasal Cannula 3.0 03/17/19 00:00 90 20 123/79 (94) 96 03/16/19 21:00 18 108/68 (81) 03/16/19 20:12 99 Nasal Cannula 2.0 28 03/16/19 20:12 124 22 99 Nasal Cannula 2.0 28 03/16/19 20:00 Nasal Cannula 3.0 03/16/19 20:00 98.6 03/16/19 17:42 65 121/71 03/16/19 16:00 97.0 62 18 137/71 (93) 100 03/16/19 16:00 105 03/16/19 16:00 Nasal Cannula 3.0 03/16/19 12:00 113 03/16/19 12:00 Nasal Cannula 3.0 03/16/19 12:00 98.2 71 17 168/66 (100) 94 Height (Feet): 5 Height (Inches): 9.00 Weight (Pounds): 210 Objective GEN: NAD HEENT: NCAT, MMM Respiratory/Chest: CTAB, No W Cardiovascular: RRR, S1, S2 Abdomen: Soft, non distended Microbiology Date/Time Source Procedure Growth Status 03/14/19 18:40 Rectum VRE Culture - Final NO VANCOMYCIN RESISTANT ENTEROCOCCUS ... Complete Laboratory Tests Test 03/17/19 05:52 Prothrombin Time 23.5 SEC (9.30-11.50) H Prothromb Time International Ratio 2.3 (0.9-1.1) H Sodium Level 134 MMOL/L (136-145) L Potassium Level 4.4 MMOL/L (3.5-5.1) Chloride Level 94 MMOL/L (98-107) L Carbon Dioxide Level 26 MMOL/L (21-32) Anion Gap 14 mmol/L (5-15) Blood Urea Nitrogen 63 mg/dL (7-18) H Creatinine 8.7 MG/DL (0.55-1.30) H Estimat Glomerular Filtration Rate 7.4 mL/min (>60) Glucose Level 187 MG/DL (74-106) H Calcium Level 8.5 MG/DL (8.5-10.1) Phosphorus Level 6.1 MG/DL (2.5-4.9) H Total Bilirubin 0.4 MG/DL (0.2-1.0) Aspartate Amino Transf (AST/SGOT) 18 U/L (15-37) Alanine Aminotransferase (ALT/SGPT) 19 U/L (12-78) Alkaline Phosphatase 75 U/L (46-116) Troponin I 0.031 ng/mL (0.000-0.056) Total Protein 6.7 G/DL (6.4-8.2) Albumin 2.9 G/DL (3.4-5.0) L Globulin 3.8 g/dL Albumin/Globulin Ratio 0.8 (1.0-2.7) L Triglycerides Level 100 MG/DL (30-150) Cholesterol Level 195 MG/DL (< 200) LDL Cholesterol 97 mg/dL (<100) HDL Cholesterol 49 MG/DL (40-60) Cholesterol/HDL Ratio 4.0 (3.3-4.4) Current Medications Medications (Trade) Dose Ordered Sig/Divya Route PRN Reason Start Time Stop Time Status Last Admin Dose Admin Acetaminophen (Tylenol) 650 mg Q4H PRN ORAL fever 03/15/19 11:23 04/14/19 11:22 Albuterol/ Ipratropium (Albuterol/ Ipratropium) 3 ml Q6HRT PRN HHN dyspnea 03/15/19 13:00 03/18/19 19:44 Aspirin (ASA) 81 mg DAILY ORAL 03/16/19 09:00 04/13/19 08:59 03/17/19 09:02 Atorvastatin Calcium (Lipitor) 40 mg BEDTIME ORAL 03/16/19 21:00 04/15/19 20:59 03/16/19 21:41 Clonidine HCl (Catapres Tab) 0.1 mg Q4H PRN ORAL for bp of over 160 syst 03/15/19 11:25 04/14/19 11:24 Dextrose (Dextrose 50%) 25 ml Q30M PRN IV Hypoglycemia 03/15/19 11:45 04/12/19 19:44 Dextrose (Dextrose 50%) 50 ml Q30M PRN IV Hypoglycemia 03/15/19 11:45 04/12/19 19:44 Digoxin (Lanoxin) 0.125 mg DAILY ORAL 03/16/19 09:00 04/13/19 08:59 03/17/19 09:02 Docusate Sodium (Colace) 100 mg THREE TIMES A DAY ORAL 03/15/19 18:00 04/14/19 17:59 03/17/19 09:00 Insulin Aspart (NovoLOG) BEFORE MEALS AND HS SUBQ 03/15/19 11:30 04/12/19 20:59 03/17/19 06:18 Insulin Detemir (Levemir) 10 units DAILY SUBQ 03/16/19 09:00 04/13/19 10:59 03/16/19 09:36 Metoprolol Tartrate (Lopressor) 100 mg BID ORAL 03/16/19 18:00 04/12/19 21:59 03/17/19 09:01 Morphine Sulfate (Morphine Sulfate) 1 mg Q4H PRN IVP For Pain 03/15/19 11:23 03/22/19 11:22 Ondansetron HCl (Zofran) 4 mg Q6H PRN IVP Nausea & Vomiting 03/15/19 11:23 04/14/19 11:22 Pantoprazole (Protonix) 40 mg DAILY ORAL 03/16/19 09:00 04/14/19 08:59 03/17/19 09:00 Polyethylene Glycol (Miralax) 17 gm HSPRN PRN ORAL Constipation 03/15/19 11:23 04/14/19 11:22 Sevelamer Carbonate (Renvela) 2,400 mg THREE TIMES A DAY ORAL 03/16/19 13:00 04/14/19 17:59 03/17/19 09:00 Warfarin Sodium (Coumadin per pharmacy) 1 ea DAILY PRN MISC Per rx protocol 03/16/19 09:00 04/12/19 19:44 Warfarin Sodium (Coumadin) 5 mg COUMADIN ORAL 03/15/19 17:00 03/20/19 16:59 03/16/19 17:43 Zolpidem Tartrate (Ambien) 5 mg HSPRN PRN ORAL Insomnia 03/15/19 19:45 03/20/19 19:44 Navneet Telles MD Mar 17, 2019 09:46
--- NOTE | 2019-03-17 10:10 | Cardiac Electrophysiology PN ---
Assessment/Plan Assessment/Plan 1. Atrial fibrillation with rapid ventricular response. Digoxin level is only 0.3. He is on digoxin 0.125 mg daily, metoprolol 100 mg b.i.d. and Coumadin per Rx 2. Status post single chamber [employer] pacemaker. 3. Troponin elevation. The patient does not have any chest pain, likely due to renal failure. 4. End-stage renal disease, on hemodialysis. 5. Cardiomyopathy. Echocardiogram for ejection fraction of 35% to 40%. The patient is already on hemodialysis and metoprolol. After blood pressure is stabilized, we may add hydralazine and nitrate to his medical regimen. 6. Diabetes, on insulin. Subjective Subjective Remained in atrial fib with occasional pacing. Objective Last 24 Hour Vital Signs Date Time Temp Pulse Resp B/P (MAP) Pulse Ox O2 Delivery O2 Flow Rate FiO2 03/17/19 09:02 93 03/17/19 09:01 100 130/77 03/17/19 08:00 97.6 100 20 130/77 (94) 94 03/17/19 07:37 Nasal Cannula 3.0 03/17/19 07:00 80 20 99 Nasal Cannula 2.0 28 03/17/19 07:00 99 Nasal Cannula 2.0 28 03/17/19 04:00 Nasal Cannula 3.0 03/17/19 04:00 98.9 100 20 117/78 (91) 99 03/17/19 04:00 107 03/17/19 00:00 98.6 90 20 123/79 (94) 96 03/17/19 00:00 107 03/17/19 00:00 Nasal Cannula 3.0 03/17/19 00:00 90 20 123/79 (94) 96 03/16/19 21:00 18 108/68 (81) 03/16/19 20:12 99 Nasal Cannula 2.0 28 03/16/19 20:12 124 22 99 Nasal Cannula 2.0 28 03/16/19 20:00 Nasal Cannula 3.0 03/16/19 20:00 98.6 03/16/19 17:42 65 121/71 03/16/19 16:00 97.0 62 18 137/71 (93) 100 03/16/19 16:00 105 03/16/19 16:00 Nasal Cannula 3.0 03/16/19 12:00 113 03/16/19 12:00 Nasal Cannula 3.0 03/16/19 12:00 98.2 71 17 168/66 (100) 94 Intake and Output 03/16/19 03/17/19 19:00 07:00 Intake Total 360 ml Output Total 100 ml 100 ml Balance 260 ml -100 ml Intake Oral 360 ml Output Urine Total 100 ml 100 ml Laboratory Tests Test 03/17/19 05:52 Prothrombin Time 23.5 SEC (9.30-11.50) H Prothromb Time International Ratio 2.3 (0.9-1.1) H Sodium Level 134 MMOL/L (136-145) L Potassium Level 4.4 MMOL/L (3.5-5.1) Chloride Level 94 MMOL/L (98-107) L Carbon Dioxide Level 26 MMOL/L (21-32) Anion Gap 14 mmol/L (5-15) Blood Urea Nitrogen 63 mg/dL (7-18) H Creatinine 8.7 MG/DL (0.55-1.30) H Estimat Glomerular Filtration Rate 7.4 mL/min (>60) Glucose Level 187 MG/DL (74-106) H Calcium Level 8.5 MG/DL (8.5-10.1) Phosphorus Level 6.1 MG/DL (2.5-4.9) H Total Bilirubin 0.4 MG/DL (0.2-1.0) Aspartate Amino Transf (AST/SGOT) 18 U/L (15-37) Alanine Aminotransferase (ALT/SGPT) 19 U/L (12-78) Alkaline Phosphatase 75 U/L (46-116) Troponin I 0.031 ng/mL (0.000-0.056) Total Protein 6.7 G/DL (6.4-8.2) Albumin 2.9 G/DL (3.4-5.0) L Globulin 3.8 g/dL Albumin/Globulin Ratio 0.8 (1.0-2.7) L Triglycerides Level 100 MG/DL (30-150) Cholesterol Level 195 MG/DL (< 200) LDL Cholesterol 97 mg/dL (<100) HDL Cholesterol 49 MG/DL (40-60) Cholesterol/HDL Ratio 4.0 (3.3-4.4) Microbiology Date/Time Source Procedure Growth Status 03/14/19 18:40 Rectum VRE Culture - Final NO VANCOMYCIN RESISTANT ENTEROCOCCUS ... Complete Objective HEAD AND NECK: Shows no JVD or carotid bruit. LUNGS: Decreased breath sounds. CARDIOVASCULAR: Irregularly irregular. S1 and S2 with no gallop or murmur.Pacer left subclavian intact ABDOMEN: Soft. EXTREMITIES: No pitting edema. Bandar Pina MD Mar 17, 2019 10:10
--- NOTE | 2019-03-17 10:15 | Cardiology Progress Note ---
Assessment/Plan Assessment/Plan chronic chf Atrial fibrillation with RVR Anemia Pulmonary hypertension hx COPD (chronic obstructive pulmonary disease) abn trop like related to renal insuf esrd on HD hr is controlled better on bid bb will reveiew echo for lv function will d/w renal piror to choosing chf meds (eduardo i vs hydralazine and isordil) should eventually be on toprol xl tele reviewed d/w dr middleton pacer interrogation per dr middleton Subjective Cardiovascular: Denies: chest pain, lightheadedness Respiratory: Denies: shortness of breath Gastrointestinal/Abdominal: Denies: abdominal pain Genitourinary: Reports: burning Objective Last 24 Hour Vital Signs Date Time Temp Pulse Resp B/P (MAP) Pulse Ox O2 Delivery O2 Flow Rate FiO2 03/17/19 09:02 93 03/17/19 09:01 100 130/77 03/17/19 08:00 97.6 100 20 130/77 (94) 94 03/17/19 07:37 Nasal Cannula 3.0 03/17/19 07:00 80 20 99 Nasal Cannula 2.0 28 03/17/19 07:00 99 Nasal Cannula 2.0 28 03/17/19 04:00 Nasal Cannula 3.0 03/17/19 04:00 98.9 100 20 117/78 (91) 99 03/17/19 04:00 107 03/17/19 00:00 98.6 90 20 123/79 (94) 96 03/17/19 00:00 107 03/17/19 00:00 Nasal Cannula 3.0 03/17/19 00:00 90 20 123/79 (94) 96 03/16/19 21:00 18 108/68 (81) 03/16/19 20:12 99 Nasal Cannula 2.0 28 03/16/19 20:12 124 22 99 Nasal Cannula 2.0 28 03/16/19 20:00 Nasal Cannula 3.0 03/16/19 20:00 98.6 03/16/19 17:42 65 121/71 03/16/19 16:00 97.0 62 18 137/71 (93) 100 03/16/19 16:00 105 03/16/19 16:00 Nasal Cannula 3.0 03/16/19 12:00 113 03/16/19 12:00 Nasal Cannula 3.0 03/16/19 12:00 98.2 71 17 168/66 (100) 94 General Appearance: alert Neck: supple Cardiovascular: normal rate Respiratory/Chest: lungs clear Abdomen: normal bowel sounds, non tender, soft Extremities: no swelling Intake and Output 03/16/19 03/17/19 19:00 07:00 Intake Total 360 ml Output Total 100 ml 100 ml Balance 260 ml -100 ml Intake Oral 360 ml Output Urine Total 100 ml 100 ml Laboratory Tests Test 03/17/19 05:52 Prothrombin Time 23.5 SEC (9.30-11.50) H Prothromb Time International Ratio 2.3 (0.9-1.1) H Sodium Level 134 MMOL/L (136-145) L Potassium Level 4.4 MMOL/L (3.5-5.1) Chloride Level 94 MMOL/L (98-107) L Carbon Dioxide Level 26 MMOL/L (21-32) Anion Gap 14 mmol/L (5-15) Blood Urea Nitrogen 63 mg/dL (7-18) H Creatinine 8.7 MG/DL (0.55-1.30) H Estimat Glomerular Filtration Rate 7.4 mL/min (>60) Glucose Level 187 MG/DL (74-106) H Calcium Level 8.5 MG/DL (8.5-10.1) Phosphorus Level 6.1 MG/DL (2.5-4.9) H Total Bilirubin 0.4 MG/DL (0.2-1.0) Aspartate Amino Transf (AST/SGOT) 18 U/L (15-37) Alanine Aminotransferase (ALT/SGPT) 19 U/L (12-78) Alkaline Phosphatase 75 U/L (46-116) Troponin I 0.031 ng/mL (0.000-0.056) Total Protein 6.7 G/DL (6.4-8.2) Albumin 2.9 G/DL (3.4-5.0) L Globulin 3.8 g/dL Albumin/Globulin Ratio 0.8 (1.0-2.7) L Triglycerides Level 100 MG/DL (30-150) Cholesterol Level 195 MG/DL (< 200) LDL Cholesterol 97 mg/dL (<100) HDL Cholesterol 49 MG/DL (40-60) Cholesterol/HDL Ratio 4.0 (3.3-4.4) Microbiology Date/Time Source Procedure Growth Status 03/14/19 18:40 Rectum VRE Culture - Final NO VANCOMYCIN RESISTANT ENTEROCOCCUS ... Complete Preston Perla MD Mar 17, 2019 10:15
[2019-03-17] MEDS: Lisinopril 10mg tab ORAL SCH (10:59)
--- NOTE | 2019-03-17 11:05 | Nephrology Progress Note ---
Assessment/Plan Problem List: (1) ESRF (end stage renal failure) (2) Elevated troponin I level (3) Atrial fibrillation with RVR (4) Anemia (5) Cardiomyopathy Assessment ESRD CHF- Cardiomyopathy At fib with FVR DM- High BS HTN , NOW LOW BP Anemia Elevated Troponin I COPD recent ear infection Plan Hold BP meds HD again 03/18 - NO HEPARIN during HD Optimize cardiac condition BP and BS check and control renal diet adjust Phos binder doses per cardiology per orders 2D echo Ej Fx 35% Subjective ROS Limited/Unobtainable: No Constitutional: Reports: malaise Objective Objective Last 24 Hour Vital Signs Date Time Temp Pulse Resp B/P (MAP) Pulse Ox O2 Delivery O2 Flow Rate FiO2 03/17/19 10:59 144/71 03/17/19 09:02 93 03/17/19 09:01 100 130/77 03/17/19 08:00 97.6 100 20 130/77 (94) 94 03/17/19 07:37 Nasal Cannula 3.0 03/17/19 07:00 80 20 99 Nasal Cannula 2.0 28 03/17/19 07:00 99 Nasal Cannula 2.0 28 03/17/19 04:00 Nasal Cannula 3.0 03/17/19 04:00 98.9 100 20 117/78 (91) 99 03/17/19 04:00 107 03/17/19 00:00 98.6 90 20 123/79 (94) 96 03/17/19 00:00 107 03/17/19 00:00 Nasal Cannula 3.0 03/17/19 00:00 90 20 123/79 (94) 96 03/16/19 21:00 18 108/68 (81) 03/16/19 20:12 99 Nasal Cannula 2.0 28 03/16/19 20:12 124 22 99 Nasal Cannula 2.0 28 03/16/19 20:00 Nasal Cannula 3.0 03/16/19 20:00 98.6 03/16/19 17:42 65 121/71 03/16/19 16:00 97.0 62 18 137/71 (93) 100 03/16/19 16:00 105 03/16/19 16:00 Nasal Cannula 3.0 03/16/19 12:00 113 03/16/19 12:00 Nasal Cannula 3.0 03/16/19 12:00 98.2 71 17 168/66 (100) 94 Intake and Output 03/16/19 03/17/19 19:00 07:00 Intake Total 360 ml Output Total 100 ml 100 ml Balance 260 ml -100 ml Intake Oral 360 ml Output Urine Total 100 ml 100 ml Laboratory Tests 03/17/19 05:52: Prothrombin Time 23.5H, Prothromb Time International Ratio 2.3H, Sodium Level 134L, Potassium Level 4.4, Chloride Level 94L, Carbon Dioxide Level 26, Anion Gap 14, Blood Urea Nitrogen 63H, Creatinine 8.7H, Estimat Glomerular Filtration Rate 7.4, Glucose Level 187H, Calcium Level 8.5, Phosphorus Level 6.1H, Total Bilirubin 0.4, Aspartate Amino Transf (AST/SGOT) 18, Alanine Aminotransferase ( ALT/SGPT) 19, Alkaline Phosphatase 75, Troponin I 0.031, Total Protein 6.7, Albumin 2.9L, Globulin 3.8, Albumin/Globulin Ratio 0.8L, Triglycerides Level 100 , Cholesterol Level 195, LDL Cholesterol 97, HDL Cholesterol 49, Cholesterol/ HDL Ratio 4.0 Height (Feet): 5 Height (Inches): 9.00 Weight (Pounds): 210 General Appearance: no apparent distress Cardiovascular: tachycardia Respiratory/Chest: decreased breath sounds Abdomen: distended Objective no change Francisco Javier Abraham MD Mar 17, 2019 11:05
--- NOTE | 2019-03-17 11:37 | NUR ---
pt received Levemir late he was away from unit.
--- NOTE | 2019-03-17 11:45 | NUR ---
schedule dialysis with Rod at [facility] nephro.
[2019-03-17 12:00] VITALS: BP 124/84
--- NOTE | 2019-03-17 13:03 | Pulmonology Progress Note ---
Assessment/Plan Problems: (1) Atrial fibrillation with RVR (2) Anemia (3) COPD (chronic obstructive pulmonary disease) (4) Pulmonary hypertension (5) ESRF (end stage renal failure) (6) Diabetes (7) Alzheimer's dementia Assessment/Plan rate is better controlled didn't do PT because of tachycardia respiratory treatment adjust cardiac meds HD by nephrology anticoagulation by cardiology sliding scale pt/ot dc in one day if heart rate is controlled. Subjective ROS Limited/Unobtainable: No Interval Events: chronic afib, controlled now Constitutional: Reports: no symptoms Allergies: Coded Allergies: No Known Allergies (Verified , 07/21/11) Objective Last 24 Hour Vital Signs Date Time Temp Pulse Resp B/P (MAP) Pulse Ox O2 Delivery O2 Flow Rate FiO2 03/17/19 10:59 144/71 03/17/19 09:02 93 03/17/19 09:01 100 130/77 03/17/19 08:00 97.6 100 20 130/77 (94) 94 03/17/19 07:37 Nasal Cannula 3.0 03/17/19 07:00 80 20 99 Nasal Cannula 2.0 28 03/17/19 07:00 99 Nasal Cannula 2.0 28 03/17/19 04:00 Nasal Cannula 3.0 03/17/19 04:00 98.9 100 20 117/78 (91) 99 03/17/19 04:00 107 03/17/19 00:00 98.6 90 20 123/79 (94) 96 03/17/19 00:00 107 03/17/19 00:00 Nasal Cannula 3.0 03/17/19 00:00 90 20 123/79 (94) 96 03/16/19 21:00 18 108/68 (81) 03/16/19 20:12 99 Nasal Cannula 2.0 28 03/16/19 20:12 124 22 99 Nasal Cannula 2.0 28 03/16/19 20:00 Nasal Cannula 3.0 03/16/19 20:00 98.6 03/16/19 17:42 65 121/71 03/16/19 16:00 97.0 62 18 137/71 (93) 100 03/16/19 16:00 105 03/16/19 16:00 Nasal Cannula 3.0 Intake and Output 03/16/19 03/17/19 18:59 06:59 Intake Total 360 ml Output Total 100 ml 100 ml Balance 260 ml -100 ml Intake Oral 360 ml Output Urine Total 100 ml 100 ml General Appearance: WD/WN HEENT: atraumatic Respiratory/Chest: chest wall non-tender, lungs clear Cardiovascular: normal peripheral pulses, normal rate Abdomen: normal bowel sounds, soft, non tender, no scars Extremities: no cyanosis, no clubbing Skin: no rash Microbiology Date/Time Source Procedure Growth Status 03/14/19 18:40 Rectum VRE Culture - Final NO VANCOMYCIN RESISTANT ENTEROCOCCUS ... Complete Laboratory Tests 03/17/19 05:52: Prothrombin Time 23.5H, Prothromb Time International Ratio 2.3H, Sodium Level 134L, Potassium Level 4.4, Chloride Level 94L, Carbon Dioxide Level 26, Anion Gap 14, Blood Urea Nitrogen 63H, Creatinine 8.7H, Estimat Glomerular Filtration Rate 7.4, Glucose Level 187H, Calcium Level 8.5, Phosphorus Level 6.1H, Total Bilirubin 0.4, Aspartate Amino Transf (AST/SGOT) 18, Alanine Aminotransferase ( ALT/SGPT) 19, Alkaline Phosphatase 75, Troponin I 0.031, Total Protein 6.7, Albumin 2.9L, Globulin 3.8, Albumin/Globulin Ratio 0.8L, Triglycerides Level 100 , Cholesterol Level 195, LDL Cholesterol 97, HDL Cholesterol 49, Cholesterol/ HDL Ratio 4.0 Current Medications Medications (Trade) Dose Ordered Sig/Divya Route PRN Reason Start Time Stop Time Status Last Admin Dose Admin Acetaminophen (Tylenol) 650 mg Q4H PRN ORAL fever 03/15/19 11:23 04/14/19 11:22 Albuterol/ Ipratropium (Albuterol/ Ipratropium) 3 ml Q6HRT PRN HHN dyspnea 03/15/19 13:00 03/18/19 19:44 Aspirin (ASA) 81 mg DAILY ORAL 03/16/19 09:00 04/13/19 08:59 03/17/19 09:02 Atorvastatin Calcium (Lipitor) 40 mg BEDTIME ORAL 03/16/19 21:00 04/15/19 20:59 03/16/19 21:41 Clonidine HCl (Catapres Tab) 0.1 mg Q4H PRN ORAL for bp of over 160 syst 03/15/19 11:25 04/14/19 11:24 Dextrose (Dextrose 50%) 25 ml Q30M PRN IV Hypoglycemia 03/15/19 11:45 04/12/19 19:44 Dextrose (Dextrose 50%) 50 ml Q30M PRN IV Hypoglycemia 03/15/19 11:45 04/12/19 19:44 Digoxin (Lanoxin) 0.125 mg DAILY ORAL 03/16/19 09:00 04/13/19 08:59 03/17/19 09:02 Docusate Sodium (Colace) 100 mg THREE TIMES A DAY ORAL 03/15/19 18:00 04/14/19 17:59 03/17/19 09:00 Insulin Aspart (NovoLOG) BEFORE MEALS AND HS SUBQ 03/15/19 11:30 04/12/19 20:59 03/17/19 06:18 Insulin Detemir (Levemir) 10 units DAILY SUBQ 03/16/19 09:00 04/13/19 10:59 03/17/19 09:00 Lisinopril (Zestril) 10 mg DAILY ORAL 03/17/19 10:45 04/16/19 10:44 03/17/19 10:59 Metoprolol Tartrate (Lopressor) 100 mg BID ORAL 03/16/19 18:00 04/12/19 21:59 03/17/19 09:01 Morphine Sulfate (Morphine Sulfate) 1 mg Q4H PRN IVP For Pain 03/15/19 11:23 03/22/19 11:22 Ondansetron HCl (Zofran) 4 mg Q6H PRN IVP Nausea & Vomiting 03/15/19 11:23 04/14/19 11:22 Pantoprazole (Protonix) 40 mg DAILY ORAL 03/16/19 09:00 04/14/19 08:59 03/17/19 09:00 Polyethylene Glycol (Miralax) 17 gm HSPRN PRN ORAL Constipation 03/15/19 11:23 04/14/19 11:22 Sevelamer Carbonate (Renvela) 2,400 mg THREE TIMES A DAY ORAL 03/16/19 13:00 04/14/19 17:59 03/17/19 09:00 Warfarin Sodium (Coumadin per pharmacy) 1 ea DAILY PRN MISC Per rx protocol 03/16/19 09:00 04/12/19 19:44 Warfarin Sodium (Coumadin) 5 mg COUMADIN ORAL 03/15/19 17:00 03/20/19 16:59 03/16/19 17:43 Zolpidem Tartrate (Ambien) 5 mg HSPRN PRN ORAL Insomnia 03/15/19 19:45 03/20/19 19:44 Luis Miguel Donohue MD Mar 17, 2019 13:03
--- NOTE | 2019-03-17 13:55 | NUR ---
RD ASSESSMENT & RECOMMENDATIONS SEE CARE ACTIVITY FOR COMPLETE ASSESSMENT DAILY ESTIMATED NEEDS: Needs based on ESRD on HD, obese 78kg adj 25-30 kcals/kg [id number] total kcals 1.2-1.8 g protein/kg 94-140 g total protein Fluid per MD, on HD NUTRITION DIAGNOSIS: 1) Increased kcal and protein needs r/t renal dysfunction as evidenced by pt w/ ESRD on HD 2) Altered nutrition related lab values r/t DM as evidenced by A1C 9.6 PO DIET RECOMMENDATIONS:--->> DIET CHANGE TO RENAL/ CCHO LOW + 2X PROTEIN PORTIONS ADDITIONAL RECOMMENDATIONS: 1) Obtain a calibrated bed scale wt- pt w/ conflicting wts 2) Nephrovite x1 daily 3) Nepro x1 daily 4) Wound eval for wound photos (L thigh, abdomen) - -
--- NOTE | 2019-03-17 15:28 | Diagnostic Imaging Report ---
Indication: Left ear pain for a few weeks, history of near infections Technique: Noncontrast spiral acquisitions obtained through the temporal bones. High-resolution multiplanar reconstructions were generated. Total dose length product 525.59 mGycm. CTDIvol(s) 43.85 mGy. Radiation dose was minimized using automated exposure control Comparison: none Findings: There is very mild mucosal thickening of the external auditory canal. There is mild thickening of the tympanic membrane. The middle ear cavity is clear. The mastoids are clear. The auditory ossicles appear unremarkable. The internal auditory canal is unremarkable. On the right, there is mucosal thickening of the external auditory canal which is actually slightly more striking than on the left. There is also thickening of the tympanic membrane that is more striking than on the left. The middle ear cavity, mastoids are clear. The middle ear ossicles, inner ear structures, and internal auditory canal are unremarkable. No abnormal lucencies are seen within either temporal bone. Incidentally noted is mild bilateral maxillary sinus mucosal thickening. The mandible is edentulous. There is also some ethmoid sinus mucosal disease. Impression: Bilateral external auditory canal and tympanic membrane mucosal thickening, greater on the right than on the left. This is nonspecific, may be related to stated prior history of ear infections. Consider further evaluation with of otoscopic exam Unremarkable middle and inner ear structures. Unremarkable mastoids Paranasal sinus disease incidentally noted The CT scanner at [facility] is accredited by the [employer] and the scans are performed using protocols designed to limit radiation exposure to as low as reasonably achievable to attain images of sufficient resolution adequate for diagnostic evaluation.
[2019-03-17 16:00] VITALS: BP 123/57
[2019-03-17] MEDS: Warfarin Sodium 5mg ORAL SCH (17:58)
--- NOTE | 2019-03-17 19:57 | NUR ---
HAND-OFF: Report given to Harish RN. pt will have dialysis tomorrow.
[2019-03-17 20:00] VITALS: BP 112/64
--- NOTE | 2019-03-17 20:00 | NUR ---
NURSE NOTES: Received report from Carie Donnelly RN. Patient in bed with HOB elevated at semi fowlers with no complaints of acute pain or discomfort noted at this time. AAO X4 and is able to express needs and wants verbally with no difficulty. Kept clean, dry, and comfortable in bed. IV line intact and patent, Permacath for HD use noted. Patient able to stand up and walk with assistance to the bedside commode and is offered urinal PRN. Safety precaution in place at all times; siderails X3 up, call light within reach, bed in lowest position, brakes and alarm on at all times. Needs and wants anticipated and attended, will continue to plan of care and monitor for any changes noted. HD tomorrow with [facility].
[2019-03-17] MEDS: Atorvastatin 20mg tab ORAL SCH (21:13)
--- NOTE | 2019-03-17 23:02 | NUR ---
NURSE NOTES: Patient placed on continuous cardiac monitoring per protocol and current DX of uncontrolled Afib. Will continue to monitor.
[2019-03-18] VITALS (7 sets, daily range): BP systolic 87–150; BP diastolic 41–81
--- NOTE | 2019-03-18 01:59 | NUR ---
NURSE NOTES: Patient in bed asleep with no S/S of distress at this time. Will continue to monitor
[2019-03-18] MEDS: NovoLOG Insulin Flexpen SUBQ SCH ×4 (06:23→21:00)
--- NOTE | 2019-03-18 07:16 | NUR ---
HAND-OFF: Report given to Carie Donnelly RN. Patient in bed asleep with no complaints of acute pain or distress at this time. Endorsed plan of care.
--- NOTE | 2019-03-18 07:34 | NUR ---
NURSE NOTES: Received report from Harish FARRIS. Pt sitting on the side of the bed. Pt on surveillance monitor no signs of cardiac or respiratory distress. Pt will be having dialysis today. Morning labs unable to be collected will make dialysis nurse aware. Bed in lowest position and locked. Call light within reach. Will continue plan of care.
[2019-03-18] MEDS: Digoxin 0.125mg tab ORAL SCH (09:00)
[2019-03-18] MEDS: Lisinopril 10mg tab ORAL SCH (09:00)
[2019-03-18] MEDS: Aspirin Baby 81mg ORAL SCH (09:41)
[2019-03-18] MEDS: Docusate 100mg cap ORAL SCH ×3 (09:42→18:04)
--- NOTE | 2019-03-18 09:49 | NUR ---
waiting for levemir from pharmacy
[2019-03-18] MEDS: Levemir Flexpen SUBQ SCH (10:38)
--- NOTE | 2019-03-18 11:49 | Pulmonology Progress Note ---
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 Subjective ROS Limited/Unobtainable: No HEENT: Repors: no symptoms Respiratory: Reports: no symptoms Allergies: Coded Allergies: No Known Allergies (Verified , 07/21/11) Objective Last 24 Hour Vital Signs Date Time Temp Pulse Resp B/P (MAP) Pulse Ox O2 Delivery O2 Flow Rate FiO2 03/18/19 04:00 98.4 87 18 150/81 (104) 99 03/18/19 04:00 76 03/18/19 00:00 98.1 85 18 119/72 (88) 100 03/18/19 00:00 83 03/18/19 00:00 Nasal Cannula 3.0 03/17/19 21:00 Nasal Cannula 3.0 03/17/19 21:00 Nasal Cannula 3.0 03/17/19 20:44 99 Nasal Cannula 2.0 28 03/17/19 20:44 80 20 99 Nasal Cannula 2.0 28 03/17/19 20:00 96 03/17/19 20:00 98.2 79 20 112/64 (80) 99 03/17/19 18:04 84 123/57 03/17/19 16:00 84 03/17/19 16:00 Nasal Cannula 3.0 03/17/19 16:00 97.6 66 21 123/57 (79) 97 03/17/19 12:00 Nasal Cannula 3.0 03/17/19 12:00 97.4 82 23 124/84 (97) 94 03/17/19 12:00 85 Intake and Output 03/17/19 03/18/19 19:00 07:00 # Voids 2 100 # Bowel Movements 1 General Appearance: WD/WN HEENT: normocephalic, atraumatic Respiratory/Chest: chest wall non-tender, lungs clear Cardiovascular: normal peripheral pulses, normal rate Abdomen: normal bowel sounds, soft, non tender Genitourinary: normal external genitalia Extremities: no cyanosis Skin: no rash Neurologic/Psychiatric: nozzleman II-XII grossly normal Lymphatic: no neck adenopathy Current Medications Medications (Trade) Dose Ordered Sig/Divya Route PRN Reason Start Time Stop Time Status Last Admin Dose Admin Acetaminophen (Tylenol) 650 mg Q4H PRN ORAL fever 03/15/19 11:23 04/14/19 11:22 Albuterol/ Ipratropium (Albuterol/ Ipratropium) 3 ml Q6HRT PRN HHN dyspnea 03/15/19 13:00 03/18/19 19:44 Aspirin (ASA) 81 mg DAILY ORAL 03/16/19 09:00 04/13/19 08:59 03/18/19 09:41 Atorvastatin Calcium (Lipitor) 40 mg BEDTIME ORAL 03/16/19 21:00 04/15/19 20:59 03/17/19 21:13 Clonidine HCl (Catapres Tab) 0.1 mg Q4H PRN ORAL for bp of over 160 syst 03/15/19 11:25 04/14/19 11:24 Dextrose (Dextrose 50%) 25 ml Q30M PRN IV Hypoglycemia 03/15/19 11:45 04/12/19 19:44 Dextrose (Dextrose 50%) 50 ml Q30M PRN IV Hypoglycemia 03/15/19 11:45 04/12/19 19:44 Digoxin (Lanoxin) 0.125 mg DAILY ORAL 03/16/19 09:00 04/13/19 08:59 03/17/19 09:02 Docusate Sodium (Colace) 100 mg THREE TIMES A DAY ORAL 03/15/19 18:00 04/14/19 17:59 03/18/19 09:42 Insulin Aspart (NovoLOG) BEFORE MEALS AND HS SUBQ 03/15/19 11:30 04/12/19 20:59 03/18/19 06:23 Insulin Detemir (Levemir) 10 units DAILY SUBQ 03/16/19 09:00 04/13/19 10:59 03/18/19 10:38 Lisinopril (Zestril) 10 mg DAILY ORAL 03/17/19 10:45 04/16/19 10:44 03/17/19 10:59 Metoprolol Tartrate (Lopressor) 100 mg BID ORAL 03/16/19 18:00 04/12/19 21:59 03/17/19 18:04 Morphine Sulfate (Morphine Sulfate) 1 mg Q4H PRN IVP For Pain 03/15/19 11:23 03/22/19 11:22 Ondansetron HCl (Zofran) 4 mg Q6H PRN IVP Nausea & Vomiting 03/15/19 11:23 04/14/19 11:22 Pantoprazole (Protonix) 40 mg DAILY ORAL 03/16/19 09:00 04/14/19 08:59 03/18/19 09:41 Polyethylene Glycol (Miralax) 17 gm HSPRN PRN ORAL Constipation 03/15/19 11:23 04/14/19 11:22 Sevelamer Carbonate (Renvela) 2,400 mg THREE TIMES A DAY ORAL 03/16/19 13:00 04/14/19 17:59 03/18/19 09:41 Warfarin Sodium (Coumadin per pharmacy) 1 ea DAILY PRN MISC Per rx protocol 03/16/19 09:00 04/12/19 19:44 Warfarin Sodium (Coumadin) 5 mg COUMADIN ORAL 03/15/19 17:00 03/20/19 16:59 03/17/19 17:58 Zolpidem Tartrate (Ambien) 5 mg HSPRN PRN ORAL Insomnia 03/15/19 19:45 03/20/19 19:44 Luis Miguel Dnoohue MD Mar 18, 2019 11:48
--- NOTE | 2019-03-18 13:12 | Nephrology Progress Note ---
Assessment/Plan Problem List: (1) ESRF (end stage renal failure) (2) Elevated troponin I level (3) Atrial fibrillation with RVR (4) Anemia (5) Cardiomyopathy Assessment ESRD CHF- Cardiomyopathy At fib with FVR DM- High BS HTN , NOW LOW BP Anemia Elevated Troponin I COPD recent ear infection Plan Hold BP meds HD again 03/18 - NO HEPARIN during HD Optimize cardiac condition BP and BS check and control renal diet adjust Phos binder doses per cardiology per orders 2D echo Ej Fx 35% Subjective ROS Limited/Unobtainable: No Constitutional: Reports: malaise, weakness Objective Objective Last 24 Hour Vital Signs Date Time Temp Pulse Resp B/P (MAP) Pulse Ox O2 Delivery O2 Flow Rate FiO2 03/18/19 12:30 110/78 (89) 03/18/19 12:00 98.1 86 21 87/41 (56) 95 03/18/19 08:00 98.1 68 21 126/76 (93) 99 03/18/19 04:00 98.4 87 18 150/81 (104) 99 03/18/19 04:00 76 03/18/19 00:00 98.1 85 18 119/72 (88) 100 03/18/19 00:00 83 03/18/19 00:00 Nasal Cannula 3.0 03/17/19 21:00 Nasal Cannula 3.0 03/17/19 21:00 Nasal Cannula 3.0 03/17/19 20:44 99 Nasal Cannula 2.0 28 03/17/19 20:44 80 20 99 Nasal Cannula 2.0 28 03/17/19 20:00 96 03/17/19 20:00 98.2 79 20 112/64 (80) 99 03/17/19 18:04 84 123/57 03/17/19 16:00 84 03/17/19 16:00 Nasal Cannula 3.0 03/17/19 16:00 97.6 66 21 123/57 (79) 97 Intake and Output 03/17/19 03/18/19 19:00 07:00 # Voids 2 100 # Bowel Movements 1 Height (Feet): 5 Height (Inches): 9.00 Weight (Pounds): 200 General Appearance: no apparent distress, lethargic Respiratory/Chest: decreased breath sounds Abdomen: distended Objective no change Francisco Javier Abraham MD Mar 18, 2019 13:12
--- NOTE | 2019-03-18 13:27 | Infectious Diseases Prog Note ---
Assessment/Plan Assessment/Plan 69 yo male with PMHx of ESRD on HD, DM, COPD, hypertension, A fib, left upper chest pacemaker, history of CVA, history of heart attack, gout, depression, left eye blindness who presented to the ED on 03/13/19 after a fall. Leukocytosis - resolved Likely secondary to fall Aferbile Lt ear pain x few wks ( no hearling loss or tenderness ) Hx of ear infection S/P Tx ESRD on HD DM COPD HTN A fib [place] S/P pacemaker, CVA Gout Depression Left eye blindness PLAN - Continue to monitor off abx as he is clinically stable - PT/OT - Monitor CBC and Temps - Ct of Temporal bone Subjective Allergies: Coded Allergies: No Known Allergies (Verified , 07/21/11) Subjective Aferbile Satting well on 2L NC No Leukocytosis Objective Vital Signs Last 24 Hour Vital Signs Date Time Temp Pulse Resp B/P (MAP) Pulse Ox O2 Delivery O2 Flow Rate FiO2 03/18/19 12:30 110/78 (89) 03/18/19 12:00 98.1 86 21 87/41 (56) 95 03/18/19 08:00 98.1 68 21 126/76 (93) 99 03/18/19 04:00 98.4 87 18 150/81 (104) 99 03/18/19 04:00 76 03/18/19 00:00 98.1 85 18 119/72 (88) 100 03/18/19 00:00 83 03/18/19 00:00 Nasal Cannula 3.0 03/17/19 21:00 Nasal Cannula 3.0 03/17/19 21:00 Nasal Cannula 3.0 03/17/19 20:44 99 Nasal Cannula 2.0 28 03/17/19 20:44 80 20 99 Nasal Cannula 2.0 28 03/17/19 20:00 96 03/17/19 20:00 98.2 79 20 112/64 (80) 99 03/17/19 18:04 84 123/57 03/17/19 16:00 84 03/17/19 16:00 Nasal Cannula 3.0 03/17/19 16:00 97.6 66 21 123/57 (79) 97 Height (Feet): 5 Height (Inches): 9.00 Weight (Pounds): 200 Objective GEN: NAD, Satting well HEENT: NCAT, MMM Respiratory/Chest: CTAB, No W Cardiovascular: RRR, S1, S2 Abdomen: Soft, non distended Current Medications Medications (Trade) Dose Ordered Sig/Divya Route PRN Reason Start Time Stop Time Status Last Admin Dose Admin Acetaminophen (Tylenol) 650 mg Q4H PRN ORAL fever 03/15/19 11:23 04/14/19 11:22 Albuterol/ Ipratropium (Albuterol/ Ipratropium) 3 ml Q6HRT PRN HHN dyspnea 03/15/19 13:00 03/18/19 19:44 Aspirin (ASA) 81 mg DAILY ORAL 03/16/19 09:00 04/13/19 08:59 03/18/19 09:41 Atorvastatin Calcium (Lipitor) 40 mg BEDTIME ORAL 03/16/19 21:00 04/15/19 20:59 03/17/19 21:13 Clonidine HCl (Catapres Tab) 0.1 mg Q4H PRN ORAL for bp of over 160 syst 03/15/19 11:25 04/14/19 11:24 Dextrose (Dextrose 50%) 25 ml Q30M PRN IV Hypoglycemia 03/15/19 11:45 04/12/19 19:44 Dextrose (Dextrose 50%) 50 ml Q30M PRN IV Hypoglycemia 03/15/19 11:45 04/12/19 19:44 Digoxin (Lanoxin) 0.125 mg DAILY ORAL 03/16/19 09:00 04/13/19 08:59 03/17/19 09:02 Docusate Sodium (Colace) 100 mg THREE TIMES A DAY ORAL 03/15/19 18:00 04/14/19 17:59 03/18/19 09:42 Insulin Aspart (NovoLOG) BEFORE MEALS AND HS SUBQ 03/15/19 11:30 04/12/19 20:59 03/18/19 06:23 Insulin Detemir (Levemir) 10 units DAILY SUBQ 03/16/19 09:00 04/13/19 10:59 03/18/19 10:38 Lisinopril (Zestril) 10 mg DAILY ORAL 03/19/19 09:00 04/16/19 10:44 Metoprolol Tartrate (Lopressor) 100 mg BID ORAL 03/16/19 18:00 04/12/19 21:59 03/17/19 18:04 Morphine Sulfate (Morphine Sulfate) 1 mg Q4H PRN IVP For Pain 03/15/19 11:23 03/22/19 11:22 Ondansetron HCl (Zofran) 4 mg Q6H PRN IVP Nausea & Vomiting 03/15/19 11:23 04/14/19 11:22 Pantoprazole (Protonix) 40 mg DAILY ORAL 03/16/19 09:00 04/14/19 08:59 03/18/19 09:41 Polyethylene Glycol (Miralax) 17 gm HSPRN PRN ORAL Constipation 03/15/19 11:23 04/14/19 11:22 Sevelamer Carbonate (Renvela) 2,400 mg THREE TIMES A DAY ORAL 03/16/19 13:00 04/14/19 17:59 03/18/19 09:41 Warfarin Sodium (Coumadin per pharmacy) 1 ea DAILY PRN MISC Per rx protocol 03/16/19 09:00 04/12/19 19:44 Warfarin Sodium (Coumadin) 5 mg COUMADIN ORAL 03/15/19 17:00 03/20/19 16:59 03/17/19 17:58 Zolpidem Tartrate (Ambien) 5 mg HSPRN PRN ORAL Insomnia 03/15/19 19:45 03/20/19 19:44 Navneet Telles MD Mar 18, 2019 13:27
--- NOTE | 2019-03-18 13:32 | Cardiology Report ---
APPROVED REPORT EXAM: Two-dimensional and M-mode echocardiogram with Doppler and color Doppler. INDICATION Shortness of breath M-Mode DIMENSIONS IVSd1.5 (0.7-1.1cm)Left Atrium (MM)4.2 (1.6-4.0cm) LVDd4.2 (3.5-5.6cm)Aortic Root3.3 (2.0-3.7cm) PWd1.6 (0.7-1.1cm)Aortic Cusp Exc.1.7 (1.5-2.0cm) LVDs3.4 (2.5-4.0cm) PWs2.0 cm Technically difficult study due to poor acoustic windows. Study quality precludes accurate assessment of regional wall motion. Normal left ventricular chamber size. Global left ventricular hypokinesis. Left ventricular ejection fraction estimated to be 25-30 %. Mild left ventricular hypertrophy. No evidence of pericardial effusion. Mild bi-atrial enlargement. Right ventricular chamber size is at upper limits of normal. Focal aortic valve sclerosis with adequate cusp excursion. Mildly thickened mitral valve leaflets with normal excursion. Moderate mitral annulus and aortic root calcification. Pulmonic valve not well visualized. Pacemaker wire in right sided chambers noted. Normal tricuspid valve structure. IVC dilated at 2.2 cm with physiological collapse. A color flow and spectral Doppler study was performed and revealed: Trace aortic regurgitation. Mild mitral regurgitation. Mitral diastolic velocities suggest mild left ventricular diastolic dysfunction (Grade I). Mild tricuspid regurgitation. Tricuspid systolic velocities suggests peak right ventricular systolic pressure of 30 mmHg. Trace pulmonic regurgitation present.
--- NOTE | 2019-03-18 14:53 | Cardiac Electrophysiology PN ---
Assessment/Plan Assessment/Plan 1. Atrial fibrillation with rapid ventricular response. Digoxin level is only 0.3. He is on digoxin 0.125 mg daily, metoprolol 100 mg b.i.d. and Coumadin per Rx 2. Status post single chamber [employer] pacemaker. Interrogate as out patient 3. Troponin elevation. The patient does not have any chest pain, likely due to renal failure. 4. End-stage renal disease, on hemodialysis. 5. Cardiomyopathy. Echocardiogram for ejection fraction of 35% to 40%. The patient is already on hemodialysis and metoprolol and Lisinopril 10 6. Diabetes, on insulin. Subjective Subjective Remained in atrial fib with controlled rate Objective Last 24 Hour Vital Signs Date Time Temp Pulse Resp B/P (MAP) Pulse Ox O2 Delivery O2 Flow Rate FiO2 03/18/19 12:30 110/78 (89) 03/18/19 12:00 98.1 86 21 87/41 (56) 95 03/18/19 08:00 98.1 68 21 126/76 (93) 99 03/18/19 04:00 98.4 87 18 150/81 (104) 99 03/18/19 04:00 76 03/18/19 00:00 98.1 85 18 119/72 (88) 100 03/18/19 00:00 83 03/18/19 00:00 Nasal Cannula 3.0 03/17/19 21:00 Nasal Cannula 3.0 03/17/19 21:00 Nasal Cannula 3.0 03/17/19 20:44 99 Nasal Cannula 2.0 28 03/17/19 20:44 80 20 99 Nasal Cannula 2.0 28 03/17/19 20:00 96 03/17/19 20:00 98.2 79 20 112/64 (80) 99 03/17/19 18:04 84 123/57 03/17/19 16:00 84 03/17/19 16:00 Nasal Cannula 3.0 03/17/19 16:00 97.6 66 21 123/57 (79) 97 Intake and Output 03/17/19 03/18/19 19:00 07:00 # Voids 2 100 # Bowel Movements 1 Objective HEAD AND NECK: Shows no JVD LUNGS: Decreased breath sounds. CARDIOVASCULAR: Irregularly irregular. S1 and S2 with no gallop or murmur.Pacer left subclavian intact ABDOMEN: Soft. EXTREMITIES: No pitting edema. Bandar Pina MD Mar 18, 2019 14:53
--- NOTE | 2019-03-18 16:25 | NUR ---
CASE MANAGEMENT:REVIEW 03/18/19 SI: AFIB W/RVR. COPD. ESRF 98.1 86 21 110/78 95% ON 3L/NC IS: LISINOPRIL PO QD LOPRESSOR PO BID ASA PO QD DIGOXIN PO QD LEVEMIR SQ QD PROTONIX PO QD COUMADIN 5MG PO X1 : TELEMETRY STATUS DCP:FROM HOME PLAN: SCHEDULED FOR DIALYSIS TODAY
[2019-03-18 16:28] LABS: INR 2.9 (0.9-1.1)
[2019-03-18] MEDS ORDERED: Cathflo Alteplase 2mg Inj INJ ONE (18:00)
[2019-03-18] MEDS ORDERED: Warfarin Sodium 2.5mg ORAL ONE (18:00)
--- NOTE | 2019-03-18 20:28 | NUR ---
HAND-OFF: Report given to Jabari FARRIS. pt stable no signs of cardiac or resp. distress. Pt had dialysis to day and 1.5L were collected. Also Cath amelie was put on permacath and will remain there. Endorsed Night RN to call Dr. Rojas to confirm when Cath flow can be taken out of permacath.
--- NOTE | 2019-03-18 20:28 | Cardiology Progress Note ---
Assessment/Plan Assessment/Plan chronic chf cardiomyopathy Atrial fibrillation with RVR Anemia Pulmonary hypertension hx COPD (chronic obstructive pulmonary disease) abn trop like related to renal insuf esrd on HD hr is controlled better on bid bb agree with dig will reveiew echo for lv function should eventually be on toprol xl tele reviewed d/w dr middleton pacer interrogation per dr middleton lisiopril 20 mg dialy metoprol 100 mg bid lipitor 40 qhs coumadin dig 0.125 qd Subjective Cardiovascular: Denies: chest pain, lightheadedness Respiratory: Denies: shortness of breath Gastrointestinal/Abdominal: Denies: abdominal pain Genitourinary: Reports: no symptoms, burning Objective Last 24 Hour Vital Signs Date Time Temp Pulse Resp B/P (MAP) Pulse Ox O2 Delivery O2 Flow Rate FiO2 03/18/19 18:16 145 72/96 03/18/19 16:00 98.1 93 22 141/74 (96) 95 03/18/19 16:00 93 03/18/19 12:30 110/78 (89) 03/18/19 12:00 98.1 86 21 87/41 (56) 95 03/18/19 12:00 89 03/18/19 09:00 Nasal Cannula 3.0 03/18/19 08:00 88 03/18/19 08:00 98.1 68 21 126/76 (93) 99 03/18/19 04:00 98.4 87 18 150/81 (104) 99 03/18/19 04:00 76 03/18/19 00:00 98.1 85 18 119/72 (88) 100 03/18/19 00:00 83 03/18/19 00:00 Nasal Cannula 3.0 03/17/19 21:00 Nasal Cannula 3.0 03/17/19 21:00 Nasal Cannula 3.0 03/17/19 20:44 99 Nasal Cannula 2.0 28 03/17/19 20:44 80 20 99 Nasal Cannula 2.0 28 General Appearance: no apparent distress, alert Neck: supple Cardiovascular: irregularly irregular Respiratory/Chest: lungs clear Abdomen: normal bowel sounds, non tender, soft Extremities: no swelling Intake and Output 03/17/19 03/18/19 18:59 06:59 # Voids 2 100 # Bowel Movements 1 Laboratory Tests Test 03/18/19 16:00 Prothrombin Time 29.0 SEC (9.30-11.50) H Prothromb Time International Ratio 2.9 (0.9-1.1) H Preston Perla MD Mar 18, 2019 20:28
--- NOTE | 2019-03-18 20:29 | NUR ---
NURSE NOTES: Got report from Azalia FARRIS. Pt in stable condition. Denies any pain. No s/s of distress or discomfort noted. Pt resting in bed comfortably. Bed in low and locked position, call light within reach, bedside table within reach. Continue to monitor.
[2019-03-18] MEDS: Atorvastatin 20mg tab ORAL SCH (21:17)
[2019-03-19] VITALS: BP 110/78
[2019-03-19 04:00] VITALS: BP 127/78
[2019-03-19] MEDS: NovoLOG Insulin Flexpen SUBQ SCH ×3 (06:29→16:30)
--- NOTE | 2019-03-19 07:00 | NUR ---
HAND-OFF: Report given to Vianca FARRIS. endorsed plan of care.
--- NOTE | 2019-03-19 07:20 | NUR ---
NURSE NOTES: Report received from Viraj Barboza RN.Pt awake,alert sitting up on side of bed noted no resp distress, on 2 L NC,denies any c/o pain or discomfort,Afib on the monitor,IV site to LH intact ,HD pt with Perma cath to RT femoral site,with old whitt to LT hip and Lt side of abdomen, skin warm and dry,call berger within teach at bedside,SR up x2,bed lock in lowest position,will continue with plans of care.
[2019-03-19 08:11] VITALS: BP 112/74
[2019-03-19] MEDS: Aspirin Baby 81mg ORAL SCH (08:43)
[2019-03-19] MEDS: Docusate 100mg cap ORAL SCH ×3 (08:43→18:00)
[2019-03-19] MEDS: Digoxin 0.125mg tab ORAL SCH (08:44)
--- NOTE | 2019-03-19 08:59 | Infectious Diseases Prog Note ---
Assessment/Plan Assessment/Plan 69 yo male with PMHx of ESRD on HD, DM, COPD, hypertension, A fib, left upper chest pacemaker, history of CVA, history of heart attack, gout, depression, left eye blindness who presented to the ED on 03/13/19 after a fall. Leukocytosis - resolved Likely secondary to fall Aferbile Lt ear pain x few wks ( no hearing loss or tenderness ) Hx of ear infection S/P Tx ESRD on HD DM COPD HTN A fib NV S/P pacemaker, CVA Gout Depression Left eye blindness PLAN - Continue to monitor off abx as he is clinically stable - PT/OT - Monitor CBC and Temps - Ct of Temporal bone Subjective Allergies: Coded Allergies: No Known Allergies (Verified , 07/21/11) Subjective Aferbile No Leukocytosis Objective Vital Signs Last 24 Hour Vital Signs Date Time Temp Pulse Resp B/P (MAP) Pulse Ox O2 Delivery O2 Flow Rate FiO2 03/19/19 08:44 81 112/74 03/19/19 08:44 81 03/19/19 08:43 112/74 03/19/19 08:11 98.9 81 20 112/74 (87) 96 03/19/19 04:00 89 03/19/19 04:00 98.3 93 20 127/78 (94) 95 03/19/19 00:00 103 03/19/19 00:00 98.9 83 20 110/78 (89) 95 03/18/19 23:43 100 Nasal Cannula 2.0 28 03/18/19 21:00 Nasal Cannula 3.0 03/18/19 20:00 95 03/18/19 20:00 99.0 80 20 105/73 (84) 100 03/18/19 18:16 145 72/96 03/18/19 16:00 98.1 93 22 141/74 (96) 95 03/18/19 16:00 93 03/18/19 12:30 110/78 (89) 03/18/19 12:00 98.1 86 21 87/41 (56) 95 03/18/19 12:00 89 03/18/19 09:00 Nasal Cannula 3.0 Height (Feet): 5 Height (Inches): 9.00 Weight (Pounds): 200 Objective GEN: Comfortable HEENT: NCAT, MMM Respiratory/Chest: CTAB, No W Cardiovascular: RRR, S1, S2 Abdomen: Soft, non distended Laboratory Tests Test 03/18/19 16:00 Prothrombin Time 29.0 SEC (9.30-11.50) H Prothromb Time International Ratio 2.9 (0.9-1.1) H Current Medications Medications (Trade) Dose Ordered Sig/Divya Route PRN Reason Start Time Stop Time Status Last Admin Dose Admin Acetaminophen (Tylenol) 650 mg Q4H PRN ORAL fever 03/15/19 11:23 04/14/19 11:22 Aspirin (ASA) 81 mg DAILY ORAL 03/16/19 09:00 04/13/19 08:59 03/19/19 08:43 Atorvastatin Calcium (Lipitor) 40 mg BEDTIME ORAL 03/16/19 21:00 04/15/19 20:59 03/18/19 21:17 Clonidine HCl (Catapres Tab) 0.1 mg Q4H PRN ORAL for bp of over 160 syst 03/15/19 11:25 04/14/19 11:24 Dextrose (Dextrose 50%) 25 ml Q30M PRN IV Hypoglycemia 03/15/19 11:45 04/12/19 19:44 Dextrose (Dextrose 50%) 50 ml Q30M PRN IV Hypoglycemia 03/15/19 11:45 04/12/19 19:44 Digoxin (Lanoxin) 0.125 mg DAILY ORAL 03/16/19 09:00 04/13/19 08:59 03/19/19 08:44 Docusate Sodium (Colace) 100 mg THREE TIMES A DAY ORAL 03/15/19 18:00 04/14/19 17:59 03/19/19 08:43 Insulin Aspart (NovoLOG) BEFORE MEALS AND HS SUBQ 03/15/19 11:30 04/12/19 20:59 03/18/19 18:17 Insulin Detemir (Levemir) 10 units DAILY SUBQ 03/16/19 09:00 04/13/19 10:59 03/18/19 10:38 Lisinopril (Prinivil) 20 mg DAILY ORAL 03/19/19 09:00 04/18/19 08:59 03/19/19 08:43 Metoprolol Tartrate (Lopressor) 100 mg BID ORAL 03/16/19 18:00 04/12/19 21:59 03/19/19 08:44 Morphine Sulfate (Morphine Sulfate) 1 mg Q4H PRN IVP For Pain 03/15/19 11:23 03/22/19 11:22 Ondansetron HCl (Zofran) 4 mg Q6H PRN IVP Nausea & Vomiting 03/15/19 11:23 04/14/19 11:22 Pantoprazole (Protonix) 40 mg DAILY ORAL 03/16/19 09:00 04/14/19 08:59 03/19/19 08:44 Polyethylene Glycol (Miralax) 17 gm HSPRN PRN ORAL Constipation 03/15/19 11:23 04/14/19 11:22 Sevelamer Carbonate (Renvela) 2,400 mg THREE TIMES A DAY ORAL 03/16/19 13:00 04/14/19 17:59 03/19/19 08:44 Warfarin Sodium (Coumadin per pharmacy) 1 ea DAILY PRN MISC Per rx protocol 03/16/19 09:00 04/12/19 19:44 Zolpidem Tartrate (Ambien) 5 mg HSPRN PRN ORAL Insomnia 03/15/19 19:45 03/20/19 19:44 03/18/19 21:18 Navneet Telles MD Mar 19, 2019 08:59
[2019-03-19] MEDS ORDERED: Lisinopril 20mg tab ORAL SCH (09:00)
[2019-03-19] MEDS ORDERED: Lisinopril 10mg tab ORAL SCH (09:00)
--- NOTE | 2019-03-19 09:00 | NUR ---
NURSE NOTES: Up to bedside commode,noted SOB with minimal activity such as transfer from bed to BSC.Pt with BM to mod amount of brown soft stools.
[2019-03-19] MEDS: Levemir Flexpen SUBQ SCH (09:08)
[2019-03-19 09:51] LABS: INR 3.1 (0.9-1.1)
--- NOTE | 2019-03-19 11:30 | NUR ---
NURSE NOTES: Dr Donohue at bedside,seen pt,stable,discharge orders to home ordered.Pt informed re discharge orders.
[2019-03-19] MEDS ORDERED: Digoxin ORAL (11:38)
[2019-03-19] MEDS ORDERED: PRINIVIL20 MG ORAL (11:38)
[2019-03-19] MEDS ORDERED: METOPROLOL TAR100 M1 ORAL (11:38)
--- NOTE | 2019-03-19 11:39 | Pulmonology Progress Note ---
Assessment/Plan Problems: (1) Atrial fibrillation with RVR (2) Anemia (3) COPD (chronic obstructive pulmonary disease) (4) Pulmonary hypertension (5) ESRF (end stage renal failure) (6) Diabetes (7) Alzheimer's dementia Assessment/Plan rate is better controlled respiratory treatment adjust cardiac meds HD by nephrology anticoagulation by cardiology sliding scale pt/ot dc home Subjective ROS Limited/Unobtainable: No Constitutional: Reports: no symptoms HEENT: Repors: no symptoms Allergies: Coded Allergies: No Known Allergies (Verified , 07/21/11) Objective Last 24 Hour Vital Signs Date Time Temp Pulse Resp B/P (MAP) Pulse Ox O2 Delivery O2 Flow Rate FiO2 03/19/19 08:44 81 112/74 03/19/19 08:44 81 03/19/19 08:43 112/74 03/19/19 08:11 98.9 81 20 112/74 (87) 96 03/19/19 04:00 89 03/19/19 04:00 98.3 93 20 127/78 (94) 95 03/19/19 00:00 103 03/19/19 00:00 98.9 83 20 110/78 (89) 95 03/18/19 23:43 100 Nasal Cannula 2.0 28 03/18/19 21:00 Nasal Cannula 3.0 03/18/19 20:00 95 03/18/19 20:00 99.0 80 20 105/73 (84) 100 03/18/19 18:16 145 72/96 03/18/19 16:00 98.1 93 22 141/74 (96) 95 03/18/19 16:00 93 03/18/19 12:30 110/78 (89) 03/18/19 12:00 98.1 86 21 87/41 (56) 95 03/18/19 12:00 89 Intake and Output 03/18/19 03/19/19 19:00 07:00 Output Total 200 ml Balance -200 ml Output Urine Total 200 ml # Voids 2 General Appearance: WD/WN HEENT: atraumatic, anicteric Respiratory/Chest: chest wall non-tender, lungs clear Cardiovascular: normal peripheral pulses, normal rate Abdomen: normal bowel sounds, soft, non tender, no organomegaly 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, alert Lymphatic: no neck adenopathy Laboratory Tests 03/18/19 16:00: Prothrombin Time 29.0H, Prothromb Time International Ratio 2.9H 03/19/19 08:30: Prothrombin Time 30.7H, Prothromb Time International Ratio 3.1H Current Medications Medications (Trade) Dose Ordered Sig/Divya Route PRN Reason Start Time Stop Time Status Last Admin Dose Admin Acetaminophen (Tylenol) 650 mg Q4H PRN ORAL fever 03/15/19 11:23 04/14/19 11:22 Aspirin (ASA) 81 mg DAILY ORAL 03/16/19 09:00 04/13/19 08:59 03/19/19 08:43 Atorvastatin Calcium (Lipitor) 40 mg BEDTIME ORAL 03/16/19 21:00 04/15/19 20:59 03/18/19 21:17 Clonidine HCl (Catapres Tab) 0.1 mg Q4H PRN ORAL for bp of over 160 syst 03/15/19 11:25 04/14/19 11:24 Dextrose (Dextrose 50%) 25 ml Q30M PRN IV Hypoglycemia 03/15/19 11:45 04/12/19 19:44 Dextrose (Dextrose 50%) 50 ml Q30M PRN IV Hypoglycemia 03/15/19 11:45 04/12/19 19:44 Digoxin (Lanoxin) 0.125 mg DAILY ORAL 03/16/19 09:00 04/13/19 08:59 03/19/19 08:44 Docusate Sodium (Colace) 100 mg THREE TIMES A DAY ORAL 03/15/19 18:00 04/14/19 17:59 03/19/19 08:43 Insulin Aspart (NovoLOG) BEFORE MEALS AND HS SUBQ 03/15/19 11:30 04/12/19 20:59 03/18/19 18:17 Insulin Detemir (Levemir) 10 units DAILY SUBQ 03/16/19 09:00 04/13/19 10:59 03/19/19 09:08 Lisinopril (Prinivil) 20 mg DAILY ORAL 03/19/19 09:00 04/18/19 08:59 03/19/19 08:43 Metoprolol Tartrate (Lopressor) 100 mg BID ORAL 03/16/19 18:00 04/12/19 21:59 03/19/19 08:44 Morphine Sulfate (Morphine Sulfate) 1 mg Q4H PRN IVP For Pain 03/15/19 11:23 03/22/19 11:22 Ondansetron HCl (Zofran) 4 mg Q6H PRN IVP Nausea & Vomiting 03/15/19 11:23 04/14/19 11:22 Pantoprazole (Protonix) 40 mg DAILY ORAL 03/16/19 09:00 04/14/19 08:59 03/19/19 08:44 Polyethylene Glycol (Miralax) 17 gm HSPRN PRN ORAL Constipation 03/15/19 11:23 04/14/19 11:22 Sevelamer Carbonate (Renvela) 2,400 mg THREE TIMES A DAY ORAL 03/16/19 13:00 04/14/19 17:59 03/19/19 08:44 Warfarin Sodium (Coumadin per pharmacy) 1 ea DAILY PRN MISC Per rx protocol 03/16/19 09:00 04/12/19 19:44 Warfarin Sodium (Coumadin) 1 mg ONCE ORAL 03/19/19 17:00 03/19/19 19:00 Zolpidem Tartrate (Ambien) 5 mg HSPRN PRN ORAL Insomnia 03/15/19 19:45 03/20/19 19:44 03/18/19 21:18 Luis Miguel Donohue MD Mar 19, 2019 11:39
[2019-03-19 12:03] VITALS: BP 125/65
--- NOTE | 2019-03-19 14:28 | Nephrology Progress Note ---
Assessment/Plan Problem List: (1) ESRF (end stage renal failure) (2) Elevated troponin I level (3) Atrial fibrillation with RVR (4) Anemia (5) Cardiomyopathy Assessment ESRD CHF- Cardiomyopathy At fib with FVR DM- High BS HTN , NOW LOW BP Anemia Elevated Troponin I COPD recent ear infection Plan Hold BP meds HD again 03/20 if not discharged - NO HEPARIN during HD Optimize cardiac condition BP and BS check and control renal diet adjust Phos binder doses per cardiology per orders 2D echo Ej Fx 35% Subjective ROS Limited/Unobtainable: No Constitutional: Reports: weakness Objective Objective Last 24 Hour Vital Signs Date Time Temp Pulse Resp B/P (MAP) Pulse Ox O2 Delivery O2 Flow Rate FiO2 03/19/19 12:03 98.2 82 20 125/65 (85) 92 03/19/19 12:00 88 03/19/19 09:00 Nasal Cannula 3.0 03/19/19 08:44 81 112/74 03/19/19 08:44 81 03/19/19 08:43 112/74 03/19/19 08:11 98.9 81 20 112/74 (87) 96 03/19/19 08:00 96 03/19/19 04:00 89 03/19/19 04:00 98.3 93 20 127/78 (94) 95 03/19/19 00:00 103 03/19/19 00:00 98.9 83 20 110/78 (89) 95 03/18/19 23:43 100 Nasal Cannula 2.0 28 03/18/19 21:00 Nasal Cannula 3.0 03/18/19 20:00 95 03/18/19 20:00 99.0 80 20 105/73 (84) 100 03/18/19 18:16 145 72/96 03/18/19 16:00 98.1 93 22 141/74 (96) 95 03/18/19 16:00 93 Intake and Output 03/18/19 03/19/19 19:00 07:00 Output Total 200 ml Balance -200 ml Output Urine Total 200 ml # Voids 2 Laboratory Tests 03/18/19 16:00: Prothrombin Time 29.0H, Prothromb Time International Ratio 2.9H 03/19/19 08:30: Prothrombin Time 30.7H, Prothromb Time International Ratio 3.1H Height (Feet): 5 Height (Inches): 9.00 Weight (Pounds): 200 General Appearance: no apparent distress Cardiovascular: normal rate Respiratory/Chest: decreased breath sounds Abdomen: soft Objective no change Francisco Javier Abraham MD Mar 19, 2019 14:28
--- NOTE | 2019-03-19 15:00 | NUR ---
NURSE NOTES: Pt's Verta at bedside,inform re discharge orders.continuous pillowcase cutter Alisa inform pt for discharge needing ambulance,said to order ambulance thru other nursing order.
--- NOTE | 2019-03-19 15:00 | NUR ---
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
[2019-03-19 16:00] VITALS: BP 157/97
[2019-03-19] MEDS ORDERED: Warfarin Sodium 1mg ORAL SCH (17:00)
--- NOTE | 2019-03-19 17:55 | NUR ---
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
[2019-03-19 18:00] VITALS: BP 157/97
--- NOTE | 2019-03-20 12:13 | Discharge Summary ---
Discharge Summary Discharge Summary _ DATE OF ADMISSION: 03/13/2019 DATE OF DISCHARGE: 03/19/2019 DISCHARGED BY: Dr. Luis Miguel Donohue CONSULTANTS: Dr. Francisco Javier Donaldson BRIEF HOSPITAL COURSE: Patient is a 69-year-old male, with past medical history of end-stage renal disease on hemodialysis, diabetes mellitus, COPD, hypertension, atrial fibrillation, left upper chest pacemaker, history of CVA, history of OH, gout, depression, left eye blindness and recent ear infection, presented to ED after he sustained a mechanical fall. Patient denied loss of consciousness. Denied dizziness or blackouts. Denied chest pain. He reported some shortness of breath and palpitations. Patient stumbled and fell. He reported recurrent falls. Patient was usually wheelchair-bound but was able to ambulate with a walker. He complained of injury to the right hand, left knee and left ankle. On evaluation at ED, patient was found to be in atrial fibrillation with rapid ventricular response. He was given diltiazem with improvement of heart rate. Laboratory work-up revealed leukocytosis. WBC 15, hemoglobin 13, hematocrit 37. BUN was 41, creatinine 6.8, consistent with no known history of end-stage renal disease. Troponin was elevated to 0.0 93. Chest x-ray revealed no acute cardiopulmonary pathology, no pulmonary edema. X-rays of the left knee hand and ankle were negative for acute fracture. He was then admitted for further evaluation of rapid A. fib, elevated troponin, leukocytosis, COPD and recent fall. He was admitted to [facility]. He was given rate control with digoxin and beta- destiny. He was given anticoagulation with Coumadin. He was placed on fall precautions. He was given GI prophylaxis. Glucose was monitored. Hemoglobin A1c was elevated to 9.6. He was given Levemir and NovoLog sliding scale. Pathology Transcriptionist was consulted. He was given inpatient hemodialysis. Patient had a cath on the right femoral. Patient stated he was not dialyzed for a week. Phosphorus level was elevated. Phosphate binders were increased to 2400 mg tid. ID was consulted. There was no fever. He had a recent ear infection. There was no evidence of active infection. He was observed off antibiotic treatment. He underwent cardiac evaluation. Cardiac enzymes were minimally abnormal in light of elevated creatinine. Echocardiogram done showed ejection fraction of 35 to 40% with cardiomyopathy. Heart rate was controlled on digoxin 0.125 mg daily and metoprolol. Metoprolol dose was increased 200 mg twice daily. Lisinopril was added to his regimen. Venous duplex was negative for acute DVT. Patient had a single-chamber Medtronic pacemaker. He was advised to have pacemaker interrogated as outpatient. CT scan of the auditory canal showed bilateral external auditory canal and tympanic membrane mucosal thickening, unremarkable middle and inner ear structures, unremarkable mastoids. Heart rate was controlled. Leukocytosis resolved. He was eventually cleared for discharge. FINAL DIAGNOSES: Atrial fibrillation with RVR, resolved Cardiomyopathy End-stage renal failure, on hemodialysis Elevated troponin due to troponin leak Anemia Hypertension Diabetes mellitus [id number] Left ear pain with history of recent ear infection COPD OH status post pacemaker Gout Depression Left eye blindness This post fall DISPOSITION: Patient was discharged home. DISCHARGE MEDICATIONS: Refer to Discharge Medication List. DISCHARGE INSTRUCTIONS: Follow-up in a week. I have been assigned to complete a discharge summary on this account, I was not involved with the patient's management. Liz Betancourt NP Mar 20, 2019 12:13
[2019-03-22] MEDS ORDERED: COZAAR50 MG ORAL (08:26)
[2019-03-22] MEDS ORDERED: ZAROXOLYN (08:26)
== END 2019-03-19 18:39 | disposition home or self-care (01) | DRG 308 ==
LOC: EDBD 17:00 → EDBEDREQ 17:26 → EMR 17:30 → EDBEDREQ 18:11 → 2W 18:53 → EDBEDREQ 20:07 → EDBEDREQSVC 20:39 → EDBEDREQ 20:39 → 2E 03-15 11:20
PROC: 5A1D70Z Performance of Urinary Filtration, Intermittent, Less than 6 Hours Per Day (ICD-10-PCS; principal; 2019-03-14)
DX: I48.91 Unspecified atrial fibrillation (principal); N18.6 End stage renal disease; I12.0 Hypertensive chronic kidney disease with stage 5 chronic kidney disease or end stage renal disease; Z99.2 Dependence on renal dialysis; E11.65 Type 2 diabetes mellitus with hyperglycemia; Z95.0 Presence of cardiac pacemaker; J44.9 Chronic obstructive pulmonary disease, unspecified; Z79.01 Long term (current) use of anticoagulants; I42.9 Cardiomyopathy, unspecified; D64.9 Anemia, unspecified; I25.2 Old myocardial infarction; M10.9 Gout, unspecified; F32.9 Major depressive disorder, single episode, unspecified; H54.62 Unqualified visual loss, left eye, normal vision right eye; Z91.81 History of falling; Z86.73 Personal history of transient ischemic attack (TIA), and cerebral infarction without residual deficits; S69.91XA Unspecified injury of right wrist, hand and finger(s), initial encounter; W19.XXXA Unspecified fall, initial encounter; S89.92XA Unspecified injury of left lower leg, initial encounter; I95.9 Hypotension, unspecified; G30.9 Alzheimer's disease, unspecified; F02.80 Dementia in other diseases classified elsewhere, unspecified severity, without behavioral disturbance, psychotic disturbance, mood disturbance, and anxiety; H92.02 Otalgia, left ear
CPT/HCPCS: 36415; 70480; 71045; 80048; 80053; 80061; 80076; 80162; 82607; 82728; 82746; 82962; 83036; 83540; 83550; 83690; 83735; 83880; 84100; 84443; 84484; 84550; 85007; 85025; 85610; 85730; 86140; 87081; 87517; 93005; 93306; 93970; 94664; 96374; 96375; 99285; J1815; S5561

== ENCOUNTER 2019-05-23 16:03 | Inpatient (IN) | payer MEDICARE, MEDICAID ==
[~2019-05-23] VITALS: Ht 177.8 cm; Wt 84.8 kg
[~2019-05-23 16:03] MED LIST changes: +ABILIFY15 MG ORAL; +ATORVASTATIN CA40 MG ORAL; +CALCIUM ACETAT667 MG PO; +COZAAR50 MG ORAL; +Digoxin ORAL; +ISOSORBIDE MONO30 M1 PO; +LOPERAMIDE2 M1 PO; +LOSARTAN POTASS50 MG ORAL; +METOLAZONE5 MG PO; +METOPROLOL SUC100 MG ORAL; +METOPROLOL TAR100 M1 ORAL; +PRINIVIL20 MG ORAL; +RENA-VITE TABL0.8 M1 PO; +SERTRALINE HCL50 MG ORAL; +TRADJENTA5 MG PO; +VENTOLIN HFA18 GM INH; +WARFARIN SODIUM5 MG ORAL; +ZAROXOLYN
--- NOTE | 2019-05-23 16:03 | NUR ---
ED Nurse Note: PER EMS BS 94.
--- NOTE | 2019-05-23 16:08 | Emergency Room Report ---
History of Present Illness General Chief Complaint: Dyspnea/Respdistress Source: EMS Present Illness HPI 69-year-old male AO x1 presents with acute dyspnea, patient was at the [facility] not taking his oxygen, he is oxygen dependent has a history of COPD he was hypoxic down to the low 80s, patient is not answering questions, he is currently on a nonrebreather, history is limited secondary to patient's dementia. Onset prior to arrival, severity is severe, aggravated by not taking his oxygen , alleviated by taking his oxygen, characterization is shortness of breath Allergies: Coded Allergies: No Known Allergies (Verified , 07/21/11) Patient History Limited by: medical condition - Dementia Past Medical History: see triage record Social History: Reports: smoking - History former smoker Reviewed Nursing Documentation: PMH: Agreed; PSxH: Agreed Nursing Documentation-PMH Hx Cardiac Problems: No - RENAL FAILURE ,DIALYSIS M.W.F Hx Hypertension: Yes Hx Pacemaker: Yes Hx Asthma: Yes Hx COPD: Yes Hx Diabetes: Yes - SHUNT RT UPPER ARM ,CENTRAL LINE LEFT CHEST Hx Cancer: No Hx Gastrointestinal Problems: No Hx Dialysis: No - POOR KIDNEY FUNCTION Hx Neurological Problems: Yes Hx Cerebrovascular Accident: Yes Hx Headaches: Yes Hx Weakness: Yes - lower extremity Review of Systems All Other Systems: limited - Dementia Physical Exam Vital Signs Date Time Temp Pulse Resp B/P (MAP) Pulse Ox O2 Delivery O2 Flow Rate FiO2 05/23/19 15:56 98.4 86 20 127/66 (86) 95 Simple Mask 15.0 Sp02 EP Interpretation: reviewed, normal General Appearance: no apparent distress, alert Head: normocephalic, atraumatic Eyes: bilateral eye PERRL, bilateral eye EOMI ENT: uvula midline, moist mucus membranes Neck: supple, thyroid normal, supple/symm/no masses Respiratory: lungs clear, no respiratory distress, no retraction, no accessory muscle use, other - on non rebreather Cardiovascular #1: normal peripheral pulses, no edema, no gallop, no murmur, tachycardia Gastrointestinal: non tender, soft, no guarding, no rebound Musculoskeletal: normal inspection Neurologic: alert - Alert and oriented x1, responsive Psychiatric: mood/affect normal Skin: no rash, warm/dry Medical Decision Making Diagnostic Impression: Primary Impression: Dyspnea Qualified Codes: R06.03 - Acute respiratory distress Additional Impressions: Hypoxia UTI (lower urinary tract infection) ER Course 69-year-old male presents with agitation at the alf, patient found to have a UTI, may have been causing him to feel agitated, patient is noncombative now, tolerating supplemental O2, will send patient up to telemetry for observation, antibiotic started, patient is admitted to And in no acute distress Ceftriaxone 1g started Laboratory Tests Test 05/23/19 15:59 05/23/19 16:20 05/23/19 16:26 Arterial Blood pH 7.557 (7.350-7.450) Arterial Blood Partial Pressure CO2 29.4 mmHg (35.0-45.0) L Arterial Blood Partial Pressure O2 98.0 mmHg (75.0-100.0) Arterial Blood HCO3 25.6 mmol/L (22.0-26.0) Arterial Blood Oxygen Saturation 97.6 % (95-100) Arterial Blood Base Excess 3.7 (-2-2) H Ted Test Positive White Blood Count 10.6 K/UL (4.8-10.8) Red Blood Count 3.17 M/UL (4.70-6.10) L Hemoglobin 9.6 G/DL (14.2-18.0) L Hematocrit 29.8 % (42.0-52.0) L Mean Corpuscular Volume 94 FL (80-99) Mean Corpuscular Hemoglobin 30.2 PG (27.0-31.0) Mean Corpuscular Hemoglobin Concent 32.2 G/DL (32.0-36.0) Red Cell Distribution Width 15.1 % (11.6-14.8) H Platelet Count 260 K/UL (150-450) Mean Platelet Volume 6.0 FL (6.5-10.1) L Neutrophils (%) (Auto) 78.9 % (45.0-75.0) H Lymphocytes (%) (Auto) 12.4 % (20.0-45.0) L Monocytes (%) (Auto) 6.4 % (1.0-10.0) Eosinophils (%) (Auto) 1.6 % (0.0-3.0) Basophils (%) (Auto) 0.8 % (0.0-2.0) Prothrombin Time 64.9 SEC (9.30-11.50) H Prothrombin Time INR 6.8 (0.9-1.1) *H PTT > 150 SEC (23-33) *H Sodium Level 136 MMOL/L (136-145) Potassium Level 3.1 MMOL/L (3.5-5.1) L Chloride Level 98 MMOL/L (98-107) Carbon Dioxide Level 27 MMOL/L (21-32) Anion Gap 11 mmol/L (5-15) Blood Urea Nitrogen 16 mg/dL (7-18) Creatinine 4.9 MG/DL (0.55-1.30) H Estimate Glomerular Filtration Rate 14.3 mL/min (>60) Glucose Level 111 MG/DL (74-106) H Lactic Acid Level 1.90 mmol/L (0.4-2.0) Calcium Level 9.3 MG/DL (8.5-10.1) Phosphorus Level 2.1 MG/DL (2.5-4.9) L Magnesium Level 1.7 MG/DL (1.8-2.4) L Total Bilirubin 0.6 MG/DL (0.2-1.0) Aspartate Amino Transferase (AST) 21 U/L (15-37) Alanine Aminotransferase (ALT) 13 U/L (12-78) Alkaline Phosphatase 166 U/L (46-116) H Total Creatine Kinase 98 U/L (26-308) Creatine Kinase MB 3.0 NG/ML (0.0-3.6) Creatine Kinase MB Relative Index 3.0 Troponin I 0.003 ng/mL (0.000-0.056) Pro-B-Type Natriuretic Peptide 78028 pg/mL (0-125) H Total Protein 7.2 G/DL (6.4-8.2) Albumin 2.2 G/DL (3.4-5.0) L Globulin 5.0 g/dL Albumin/Globulin Ratio 0.4 (1.0-2.7) L Lipase 42 U/L (73-393) L Urine Color Brown Urine Appearance Turbid Urine pH 8 (4.5-8.0) Urine Specific [place] 1.015 (1.005-1.035) Urine Protein 4+ (NEGATIVE) H Urine Glucose (UA) 1+ (NEGATIVE) H Urine Ketones 1+ (NEGATIVE) H Urine Blood 5+ (NEGATIVE) H Urine Nitrite Negative (NEGATIVE) Urine Bilirubin Negative (NEGATIVE) Urine Urobilinogen Normal MG/DL (0.0-1.0) Urine Leukocyte Esterase 3+ (NEGATIVE) H Urine RBC Tntc /HPF (0 - 0) H Urine WBC Tntc /HPF (0 - 0) H Urine Squamous Epithelial Cells Many /LPF (NONE/OCC) H Urine Bacteria Many /HPF (NONE) H EKG Diagnostic Results EKG Time: 16:07 EP Interpretation: Atrial fibrillation, rate 110, QTc 544, no acute ST elevations, normal axis Rate: tachycardiac Rhythm: other - atrial fibrillation ST Segments: no acute changes Rhythm Strip Diag. Results Rhythm Strip Time: 16:10 EP Interpretation: yes Rate: 96 Rhythm: NSR, no PVC's, no ectopy Chest X-Ray Diagnostic Results Chest X-Ray Diagnostic Results : Chest X-Ray Ordered: Yes Indication: Shortness of Breath EP Interpretation: Yes Interpretation: no consolidation, no pneumothorax, no acute cardiopulmonary disease Impression: No acute disease Electronically Signed by: Daniel Gonzalez MD Last Vital Signs Date Time Temp Pulse Resp B/P (MAP) Pulse Ox O2 Delivery O2 Flow Rate FiO2 05/23/19 15:56 98.4 86 20 127/66 (86) 95 Simple Mask 15.0 Disposition: ADMITTED INPATIENT Condition: Stable Daniel Gonzalez MD May 23, 2019 16:08
[2019-05-23 16:09] VITALS: BP 127/66
--- NOTE | 2019-05-23 16:10 | NUR ---
ED Nurse Note: Pt NOA MENDOZA#58 from [facility] d/t low SPo2. Per EMT pt's SPo2 87% at the facility. Pt saturation 97% on room air in the ER. Pt is A&O x1, V/S noted with no s/s of acute distres noted at this time. Blood and urine sent down to the lab.
[2019-05-23 16:43] LABS: BASOPHILS % (AUTO) 0.8 % (0.0-2.0); EOSINOPHILS % (AUTO) 1.6 % (0.0-3.0); HEMATOCRIT 29.8 % (42.0-52.0); HEMOGLOBIN 9.6 G/DL (14.2-18.0); LYMPHOCYTES % (AUTO) 12.4 % (20.0-45.0); MEAN CORPUSCULAR VOLUME 94 FL (80-99); MONOCYTES % (AUTO) 6.4 % (1.0-10.0); NEUTROPHILS % (AUTO) 78.9 % (45.0-75.0); PLATELET COUNT 260 K/UL (150-450); RED BLOOD COUNT 3.17 M/UL (4.70-6.10); RED CELL DISTRIBUTION WIDTH 15.1 % (11.6-14.8); WHITE BLOOD COUNT 10.6 K/UL (4.8-10.8)
[2019-05-23 17:10] LABS: APPEARANCE,URINE TURBID; BILIRUBIN, URINE NEGATIVE (NEGATIVE); COLOR,URINE BROWN; GLUCOSE, URINE (UA) 1+ (NEGATIVE); KETONES,URINE 1+ (NEGATIVE); LEUKOCYTE ESTERASE ,URINE 3+ (NEGATIVE); NITRITE,URINE NEGATIVE (NEGATIVE); PH,URINE 8 (4.5-8.0); PROTEIN,URINE 4+ (NEGATIVE); UROBILINOGEN,URINE NORMAL MG/DL (0.0-1.0)
[2019-05-23 17:28] LABS: ANION GAP 11 mmol/L (5-15); BLOOD UREA NITROGEN 16 mg/dL (7-18); CALCIUM 9.3 MG/DL (8.5-10.1); CARBON DIOXIDE 27 MMOL/L (21-32); CHLORIDE 98 MMOL/L (98-107); CREATININE 4.9 MG/DL (0.55-1.30); POTASSIUM 3.1 MMOL/L (3.5-5.1); SODIUM 136 MMOL/L (136-145)
[2019-05-23 17:31] LABS: INR 6.8 (0.9-1.1)
[2019-05-23 17:32] LABS: PARTIAL THROMBOPLASTIN TIME > 150 SEC (23-33)
[2019-05-23 17:34] LABS: ALANINE AMINOTRANSFERASE 13 U/L (12-78); ALBUMIN 2.2 G/DL (3.4-5.0); ALBUMIN/GLOBULIN RATIO 0.4 (1.0-2.7); ALKALINE PHOSPHATASE 166 U/L (46-116); ASPARTATE AMINO TRANSFERASE 21 U/L (15-37); BILIRUBIN,TOTAL 0.6 MG/DL (0.2-1.0); CREATINE KINASE 98 U/L (26-308); PHOSPHORUS 2.1 MG/DL (2.5-4.9)
[2019-05-23] MEDS ORDERED: cefTRIAXone 1 GM in NS 55 ML IVPB ONE (17:45)
--- NOTE | 2019-05-23 18:00 | NUR ---
ED Nurse Note: Pt's name is Ryan Buchanan and her phone #
[2019-05-23 18:09] VITALS: BP 100/60
[2019-05-23] MEDS ORDERED: Hydromorphone 0.5mg/0.5ml inj IVP PRN (18:15)
[2019-05-23] MEDS ORDERED: Metoclopramide 10mg/2ml Inj IVP PRN (18:15)
[2019-05-23] MEDS ORDERED: Mylanta II UD 30ml ORAL PRN (18:15)
[2019-05-23] MEDS ORDERED: Albuterol/Ipratropium 3ml neb HHN PRN (18:15)
--- NOTE | 2019-05-23 19:25 | NUR ---
HAND-OFF: Report given to KALEIGH Henry.
--- NOTE | 2019-05-23 20:20 | NUR ---
Hand Off: Tranfered patient to KALEIGH Hawk.
[2019-05-23 21:00] VITALS: BP 143/90
--- NOTE | 2019-05-23 21:00 | NUR ---
NURSE NOTES: Received patient from KALEIGH Henry. patient is AO X2, responsive to name and simple commands, denies pain at this time. patient is on 2 L O2 via NC. no s/sx of respiratory distress noted at this time. registered nurse cardiac telemetry placed showing A-fib. noted skin alterations. No IV access at this time. Dialysis port noted on left upper chest. belongings noted and at patient's bedside. bed in lowest position and locked, siderails up X3, call light within reach. will continue to monitor.
--- NOTE | 2019-05-23 21:36 | NUR ---
NURSE NOTES: left message for MD regarding abnormal lab values. awaiting call back.
--- NOTE | 2019-05-23 21:38 | NUR ---
NURSE NOTES: received call back from MD regarding abnormal lab values. will carry out orders as per physician.
[2019-05-23] MEDS ORDERED: Potassium Phosphate 30 MM in NS 275 ML IV ONE (22:45)
--- NOTE | 2019-05-23 22:59 | Pulmonology Progress Note ---
Assessment/Plan Assessment/Plan Pulmonary Consultation HPI Patient is a 69-year-old male with a history of Alzheimers Dementia, COPD, Hypertension, Pacemaker, CKD on HD, Previous CVA, chronic weakness, Diabetes, AO x1, presents with acute dyspnea, patient was [facility] the [facility] not taking his oxygen, he is oxygen dependent, has a history of COPD, he was hypoxic down to the low 80s, history is limited secondary to patient's dementia. Noted to have UTI in he ED, CXR clear. 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 Allergies: No Known Allergies Past Medical History: Alzheimers Dementia, COPD, Hypertension, Pacemaker, CKD on HD, Previous CVA, chronic weakness, Diabetes All Other Systems: limited Physical Exam Vital Signs Noted Date Time Temp Pulse Resp B/P (MAP) Pulse Ox O2 Delivery O2 Flow Rate FiO2 05/23/19 15:56 98.4 86 20 127/66 (86) 95 Simple Mask 15.0 General Appearance: no apparent distress, alert Head: normocephalic, atraumatic Eyes: bilateral eye PERRL, bilateral eye EOMI ENT: uvula midline, moist mucus membranes Neck: supple, thyroid normal, supple/symmetrical/no masses Respiratory: lungs clear, no respiratory distress, no retraction, no accessory muscle use, other - on non rebreather Cardiovascular: normal HS, normal peripheral pulses, no gallop, no murmur, tachycardia, irregular Gastrointestinal: non tender, soft, no guarding, no rebound Musculoskeletal: normal inspection Neurologic: awake, oriented x1, responsive Skin: no rash, warm/dry, no edema Impression: Dyspnea COPD Hypoxia UTI (lower urinary tract infection) Alzheimer Dementa HTN Plan - O2 PRN - HHN - R/O DVT/PE - IV Antibiotics for UTI - Monitor labs - PPX Laboratory Tests Test 05/23/19 15:59 05/23/19 16:20 05/23/19 16:26 Arterial Blood pH 7.557 (7.350-7.450) Arterial Blood Partial Pressure CO2 29.4 mmHg (35.0-45.0) L Arterial Blood Partial Pressure O2 98.0 mmHg (75.0-100.0) Arterial Blood HCO3 25.6 mmol/L (22.0-26.0) Arterial Blood Oxygen Saturation 97.6 % (95-100) Arterial Blood Base Excess 3.7 (-2-2) H Ted Test Positive White Blood Count 10.6 K/UL (4.8-10.8) Red Blood Count 3.17 M/UL (4.70-6.10) L Hemoglobin 9.6 G/DL (14.2-18.0) L Hematocrit 29.8 % (42.0-52.0) L Mean Corpuscular Volume 94 FL (80-99) Mean Corpuscular Hemoglobin 30.2 PG (27.0-31.0) Mean Corpuscular Hemoglobin Concent 32.2 G/DL (32.0-36.0) Red Cell Distribution Width 15.1 % (11.6-14.8) H Platelet Count 260 K/UL (150-450) Mean Platelet Volume 6.0 FL (6.5-10.1) L Neutrophils (%) (Auto) 78.9 % (45.0-75.0) H Lymphocytes (%) (Auto) 12.4 % (20.0-45.0) L Monocytes (%) (Auto) 6.4 % (1.0-10.0) Eosinophils (%) (Auto) 1.6 % (0.0-3.0) Basophils (%) (Auto) 0.8 % (0.0-2.0) Prothrombin Time 64.9 SEC (9.30-11.50) H Prothrombin Time INR 6.8 (0.9-1.1) *H PTT > 150 SEC (23-33) *H Sodium Level 136 MMOL/L (136-145) Potassium Level 3.1 MMOL/L (3.5-5.1) L Chloride Level 98 MMOL/L (98-107) Carbon Dioxide Level 27 MMOL/L (21-32) Anion Gap 11 mmol/L (5-15) Blood Urea Nitrogen 16 mg/dL (7-18) Creatinine 4.9 MG/DL (0.55-1.30) H Estimate Glomerular Filtration Rate 14.3 mL/min (>60) Glucose Level 111 MG/DL (74-106) H Lactic Acid Level 1.90 mmol/L (0.4-2.0) Calcium Level 9.3 MG/DL (8.5-10.1) Phosphorus Level 2.1 MG/DL (2.5-4.9) L Magnesium Level 1.7 MG/DL (1.8-2.4) L Total Bilirubin 0.6 MG/DL (0.2-1.0) Aspartate Amino Transferase (AST) 21 U/L (15-37) Alanine Aminotransferase (ALT) 13 U/L (12-78) Alkaline Phosphatase 166 U/L (46-116) H Total Creatine Kinase 98 U/L (26-308) Creatine Kinase MB 3.0 NG/ML (0.0-3.6) Creatine Kinase MB Relative Index 3.0 Troponin I 0.003 ng/mL (0.000-0.056) Pro-B-Type Natriuretic Peptide 23768 pg/mL (0-125) H Total Protein 7.2 G/DL (6.4-8.2) Albumin 2.2 G/DL (3.4-5.0) L Globulin 5.0 g/dL Albumin/Globulin Ratio 0.4 (1.0-2.7) L Lipase 42 U/L (73-393) L Urine Color Brown Urine Appearance Turbid Urine pH 8 (4.5-8.0) Urine Specific [place] 1.015 (1.005-1.035) Urine Protein 4+ (NEGATIVE) H Urine Glucose (UA) 1+ (NEGATIVE) H Urine Ketones 1+ (NEGATIVE) H Urine Blood 5+ (NEGATIVE) H Urine Nitrite Negative (NEGATIVE) Urine Bilirubin Negative (NEGATIVE) Urine Urobilinogen Normal MG/DL (0.0-1.0) Urine Leukocyte Esterase 3+ (NEGATIVE) H Urine RBC Tntc /HPF (0 - 0) H Urine WBC Tntc /HPF (0 - 0) H Urine Squamous Epithelial Cells Many /LPF (NONE/OCC) H Urine Bacteria Many /HPF (NONE) H EKG: Atrial fibrillation, rate 110, QTc 544, no acute ST elevations, normal axis Chest X-Ray: no consolidation, no pneumothorax, no acute cardiopulmonary disease Subjective ROS Limited/Unobtainable: No Allergies: Coded Allergies: No Known Allergies (Verified , 07/21/11) Objective Last 24 Hour Vital Signs Date Time Temp Pulse Resp B/P (MAP) Pulse Ox O2 Delivery O2 Flow Rate FiO2 05/23/19 20:10 97.9 110 15 97/57 100 Nasal Cannula 2.0 05/23/19 18:09 97.9 100 18 100/60 100 Nasal Cannula 2.0 05/23/19 16:09 98.4 98 20 127/66 95 Simple Mask 15.0 05/23/19 16:09 98 16 Room Air 97 05/23/19 15:56 98.4 86 20 127/66 (86) 95 Simple Mask 15.0 Laboratory Tests 05/23/19 15:59: Arterial Blood pH 7.557*H, Arterial Blood Partial Pressure CO2 29.4L, Arterial Blood Partial Pressure O2 98.0, Arterial Blood HCO3 25.6, Arterial Blood Oxygen Saturation 97.6, Arterial Blood Base Excess 3.7H, Ted Test Positive 05/23/19 16:20: White Blood Count 10.6, Red Blood Count 3.17L, Hemoglobin 9.6L, Hematocrit 29.8L , Mean Corpuscular Volume 94, Mean Corpuscular Hemoglobin 30.2, Mean Corpuscular Hemoglobin Concent 32.2, Red Cell Distribution Width 15.1H, Platelet Count 260, Mean Platelet Volume 6.0L, Neutrophils (%) (Auto) 78.9H, Lymphocytes (%) (Auto) 12.4L, Monocytes (%) (Auto) 6.4, Eosinophils (%) (Auto) 1.6, Basophils (%) (Auto) 0.8, Prothrombin Time 64.9H, Prothromb Time International Ratio 6.8*H, Activated Partial Thromboplast Time > 150*H, Sodium Level 136, Potassium Level 3.1L, Chloride Level 98, Carbon Dioxide Level 27, Anion Gap 11, Blood Urea Nitrogen 16, Creatinine 4.9H, Estimat Glomerular Filtration Rate 14.3, Glucose Level 111H, Lactic Acid Level 1.90, Calcium Level 9.3, Phosphorus Level 2.1L, Magnesium Level 1.7L, Total Bilirubin 0.6, Aspartate Amino Transf (AST/SGOT) 21, Alanine Aminotransferase (ALT/SGPT) 13, Alkaline Phosphatase 166H, Total Creatine Kinase 98, Creatine Kinase MB 3.0, Creatine Kinase MB Relative Index 3.0, Troponin I 0.003, Pro-B-Type Natriuretic Peptide 18295A, Total Protein 7.2, Albumin 2.2L, Globulin 5.0, Albumin/Globulin Ratio 0.4L, Lipase 42L 05/23/19 16:26: Urine Color Brown, Urine Appearance Turbid, Urine pH 8, Urine Specific [place] 1.015, Urine Protein 4+H, Urine Glucose (UA) 1+H, Urine Ketones 1+H, Urine Blood 5+H, Urine Nitrite Negative, Urine Bilirubin Negative, Urine Urobilinogen Normal, Urine Leukocyte Esterase 3+H, Urine RBC TntcH, Urine WBC TntcH, Urine Squamous Epithelial Cells ManyH, Urine Bacteria ManyH Current Medications Medications (Trade) Dose Ordered Sig/Divya Route PRN Reason Start Time Stop Time Status Last Admin Dose Admin Acetaminophen (Tylenol) 650 mg Q4H PRN ORAL Mild Pain (Pain Scale 1-3) 05/23/19 18:15 06/22/19 18:14 Acetaminophen (Tylenol) 650 mg Q4H PRN ORAL fever (temp>100.5F) 05/23/19 18:15 06/22/19 18:14 Al Hydroxide/Mg Hydroxide (Mylanta II) 30 ml Q6H PRN ORAL dyspepsia 05/23/19 18:15 06/22/19 18:14 Albuterol/ Ipratropium (Albuterol/ Ipratropium) 3 ml Q6H PRN HHN Shortness of Breath 05/23/19 18:15 05/28/19 18:14 Aripiprazole (Abilify) 15 mg DAILY ORAL 05/24/19 09:00 06/23/19 08:59 Atorvastatin Calcium (Lipitor) 40 mg DAILY ORAL 05/24/19 09:00 06/23/19 08:59 Ceftriaxone Sodium 1 gm/ Dextrose 55 ml @ 110 mls/hr Q24H IVPB 05/24/19 18:00 05/31/19 17:59 Dextrose (Dextrose 50%) 25 ml Q30M PRN IV Hypoglycemia 05/23/19 18:15 06/22/19 18:14 Dextrose (Dextrose 50%) 50 ml Q30M PRN IV Hypoglycemia 05/23/19 18:15 06/22/19 18:14 Diphenhydramine HCl (Benadryl) 25 mg Q6H PRN ORAL Itching/Pruritis 05/23/19 18:15 06/22/19 18:14 Hydromorphone HCl (Dilaudid) 0.5 mg Q6H PRN IVP Severe Pain (Pain Scale 7-10) 05/23/19 18:15 05/30/19 18:14 Isosorbide Mononitrate (Imdur) 60 mg DAILY ORAL 05/24/19 09:00 06/23/19 08:59 Lisinopril (Prinivil) 20 mg DAILY ORAL 05/24/19 09:00 06/23/19 08:59 Lorazepam (Ativan) 1 mg Q4H PRN ORAL For Anxiety 05/23/19 18:15 05/30/19 18:14 Metoclopramide HCl (Reglan) 10 mg Q6H PRN IVP Nausea & Vomiting 05/23/19 18:15 06/22/19 18:14 Ondansetron HCl (Zofran) 4 mg Q6H PRN IVP Nausea & Vomiting 05/23/19 18:15 06/22/19 18:14 Pantoprazole (Protonix) 40 mg DAILY ORAL 05/24/19 09:00 06/23/19 08:59 Prochlorperazine (Compazine) 10 mg Q6H PRN IVP Nausea & Vomiting 05/23/19 18:15 06/22/19 18:14 Sertraline HCl (Zoloft) 50 mg DAILY ORAL 05/24/19 09:00 06/23/19 08:59 Sevelamer Carbonate (Renvela) 2,400 mg THREE TIMES A DAY ORAL 05/24/19 09:00 06/23/19 08:59 Temazepam (Restoril) 15 mg HSPRN PRN ORAL Insomnia 05/23/19 18:15 05/30/19 18:14 Vitamin B Complex/ Vit C/Folic Acid (Nephrovite) 1 tab DAILY ORAL 05/24/19 09:00 06/23/19 08:59 Navneet Bond MD May 23, 2019 22:59
--- NOTE | 2019-05-23 23:00 | NUR ---
NURSE NOTES: Received call from Dr. Bond regarding orders. will carry out.
[2019-05-23] MEDS ORDERED: cefTRIAXone 1 GM in D5W 55 ML IVPB SCH (23:15)
[2019-05-24] VITALS: BP 154/69
[2019-05-24 02:45] LABS: BASOPHILS % (AUTO) 1.4 % (0.0-2.0); EOSINOPHILS % (AUTO) 2.5 % (0.0-3.0); HEMATOCRIT 33.9 % (42.0-52.0); HEMOGLOBIN 10.4 G/DL (14.2-18.0); LYMPHOCYTES % (AUTO) 14.5 % (20.0-45.0); MEAN CORPUSCULAR VOLUME 98 FL (80-99); MONOCYTES % (AUTO) 8.8 % (1.0-10.0); NEUTROPHILS % (AUTO) 72.8 % (45.0-75.0); PLATELET COUNT 230 K/UL (150-450); RED BLOOD COUNT 3.46 M/UL (4.70-6.10); RED CELL DISTRIBUTION WIDTH 16.3 % (11.6-14.8); WHITE BLOOD COUNT 7.6 K/UL (4.8-10.8)
[2019-05-24 03:03] LABS: % IRON SATURATION 41 % (15-50); IRON 37 ug/dL (50-175); TOTAL IRON BINDING CAPACITY 91 ug/dL (250-450)
[2019-05-24] MEDS: Albuterol/Ipratropium 3ml neb HHN SCH ×6 (03:03→22:16)
[2019-05-24 03:07] LABS: INR 7.5 (0.9-1.1)
[2019-05-24 03:11] LABS: PHOSPHORUS 2.8 MG/DL (2.5-4.9)
[2019-05-24 03:14] LABS: ALANINE AMINOTRANSFERASE 9 U/L (12-78); ALBUMIN 2.3 G/DL (3.4-5.0); ALBUMIN/GLOBULIN RATIO 0.4 (1.0-2.7); ALKALINE PHOSPHATASE 176 U/L (46-116); ANION GAP 9 mmol/L (5-15); ASPARTATE AMINO TRANSFERASE 24 U/L (15-37); BILIRUBIN,TOTAL 0.5 MG/DL (0.2-1.0); BLOOD UREA NITROGEN 18 mg/dL (7-18); CALCIUM 9.2 MG/DL (8.5-10.1); CARBON DIOXIDE 29 MMOL/L (21-32); CHLORIDE 99 MMOL/L (98-107); CHOLESTEROL 150 MG/DL (< 200); CREATININE 5.3 MG/DL (0.55-1.30); FERRITIN 1820 NG/ML (8-388); HDL CHOLESTEROL 49 MG/DL (40-60); POTASSIUM 3.2 MMOL/L (3.5-5.1); SODIUM 137 MMOL/L (136-145); TRIGLYCERIDES 73 MG/DL (30-150)
--- NOTE | 2019-05-24 03:55 | NUR ---
NURSE NOTES: left message for MD regarding patient's PT and INR values. awaiting call back.
[2019-05-24 04:00] VITALS: BP 154/85
[2019-05-24] MEDS ORDERED: Potassium Phosphate 30 MM in NS 275 ML IV SCH (05:00)
--- NOTE | 2019-05-24 07:40 | NUR ---
NURSE NOTES: Received bedside report from Bernice FARRIS. Pt. in bed, asleep but arousable. No sign of distress noted. On O2 at 2LPM via NC. No grimacing noted. IV site at right hand #[id number]. in placed patent/intact running K phos. Pt. pick-up by nuclear med nurse for VQ scan. Will cont. to monitor.
--- NOTE | 2019-05-24 07:42 | NUR ---
HAND-OFF: Report given to KALEIGH Bella. patient is in stable condition.
[2019-05-24 08:00] VITALS: BP 141/61
[2019-05-24] MEDS ORDERED: Atorvastatin 20mg tab ORAL SCH (09:00)
[2019-05-24] MEDS: Nephrovite tab (Rena-Vite) ORAL SCH (09:18)
[2019-05-24] MEDS: Sertraline 50mg tab ORAL SCH (09:19)
[2019-05-24] MEDS: Lisinopril 20mg tab ORAL SCH (09:19)
[2019-05-24] MEDS: Imdur 30mg tab ORAL SCH (09:19)
--- NOTE | 2019-05-24 09:47 | History and Physical ---
History of Present Illness General Date patient seen: May 24, 2019 Time patient seen: 11:00 Reason for Hospitalization: Dyspnea/Respdistress Present Illness HPI 69 year oldmalewith a PMH of a fib on AC, ESRD on HD, anemia, htn, DM, COPD, HFPEF [facility] Patient was also noted to be encephalopathic and refusing to use oxygen. Patient was also found to have UTI and placed on rocephin on admission. patient is a poor historian and unable to provide adequate history. Allergies: Coded Allergies: No Known Allergies (Verified , 07/21/11) Medication History Scheduled Aripiprazole* (Abilify*), 15 MG ORAL DAILY, (Reported) Aspirin* (Aspirin*), 81 MG ORAL DAILY, (Reported) Atorvastatin Calcium* (Atorvastatin Calcium*), 40 MG ORAL DAILY, (Reported) Calcium Acetate (Calcium Acetate), 1,334 MG PO TID, (Reported) Folic Acid/Vitamin B Comp W-C (Gail-Saranya Tablet), 0.8 MG PO DAILY, (Reported) Isosorbide Mononitrate (Isosorbide Mononitrate Er), 60 MG PO DAILY, (Reported) Linagliptin (Tradjenta), 5 MG PO DAILY, (Reported) Lisinopril* (Prinivil*), 20 MG ORAL DAILY Losartan Potassium* (Losartan Potassium*), 50 MG ORAL DAILY, (Reported) Losartan Potassium* (Cozaar*), 50 MG ORAL DAILY, (Reported) Metolazone (Metolazone), 5 MG PO DAILY, (Reported) Metoprolol Succinate* (Metoprolol Succinate*), 100 MG ORAL DAILY, (Reported) Metoprolol Tartrate* (Metoprolol Tartrate*), 100 MG ORAL BID Pantoprazole* (Protonix*), 40 MG ORAL DAILY, (Reported) Sertraline Hcl* (Zoloft*), 50 MG ORAL DAILY, (Reported) Sevelamer Carbonate (Renvela), 2,400 MG ORAL THREE TIMES A DAY Warfarin Sod* (Warfarin Sod*), 5 MG ORAL DAILY, (Reported) [Digoxin], 0.125 MG ORAL DAILY Miscellaneous Medications Albuterol Sulfate (Ventolin Hfa), 1 PUFF INH, (Reported) Loperamide Hcl (Loperamide), 2 MG PO, (Reported) [zaroxolyn], (Reported) Patient History History Provided By: Medical Record Healthcare decision maker Resuscitation status Full Code Advanced Directive on File No Past Medical/Surgical History Past Medical/Surgical History: (1) Anemia (2) Cardiomyopathy (3) Pulmonary hypertension (4) COPD (chronic obstructive pulmonary disease) (5) ESRF (end stage renal failure) (6) Cardiomyopathy Review of Systems ROS Narrative patient is poor and unreliable historian, ros is limited Physical Exam General Appearance: WD/WN, no apparent distress, alert, other - mask Lines, tubes and drains: central line, other - left dialysis catheter Neck: normal alignment, supple Respiratory/Chest: crackles/rales, rhonchi - bilaterally Cardiovascular/Chest: normal rate, regular rhythm, no JVD Abdomen: non tender, soft, no organomegaly Extremities: normal range of motion, non-tender 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, responsive, disoriented Last 24 Hour Vital Signs Date Time Temp Pulse Resp B/P (MAP) Pulse Ox O2 Delivery O2 Flow Rate FiO2 05/24/19 09:19 141/61 05/24/19 09:19 141/61 05/24/19 08:00 2.0 05/24/19 08:00 97.6 75 18 141/61 (87) 97 05/24/19 07:14 28 05/24/19 07:14 94 16 96 Nasal Cannula 3.0 32 05/24/19 07:04 93 18 90 Room Air 21 05/24/19 04:00 2.0 05/24/19 04:00 97.7 92 18 154/85 (108) 97 05/24/19 04:00 95 05/24/19 03:24 89 18 98 Nasal Cannula 2.0 28 05/24/19 03:15 28 05/24/19 03:14 87 18 97 Nasal Cannula 2.0 28 05/24/19 00:00 97.5 75 18 154/69 (97) 95 05/24/19 00:00 93 05/24/19 00:00 2.0 05/23/19 21:02 Nasal Cannula 2.0 05/23/19 21:00 98.5 95 24 143/90 (107) 98 05/23/19 20:10 97.9 110 15 97/57 100 Nasal Cannula 2.0 05/23/19 18:09 97.9 100 18 100/60 100 Nasal Cannula 2.0 05/23/19 16:09 98.4 98 20 127/66 95 Simple Mask 15.0 05/23/19 16:09 98 16 Room Air 97 05/23/19 15:56 98.4 86 20 127/66 (86) 95 Simple Mask 15.0 Intake and Output 05/23/19 05/24/19 19:00 07:00 Intake Total 55 ml 347.5 ml Output Total 140 ml Balance -85 ml 347.5 ml Intake Oral 0 ml IV Total 55 ml 347.5 ml Output Urine Total 140 ml # Voids 1 # Bowel Movements 2 Laboratory Tests Test 05/23/19 15:59 05/23/19 16:20 05/23/19 16:26 05/24/19 02:30 Arterial Blood pH 7.557 (7.350-7.450) Arterial Blood Partial Pressure CO2 29.4 mmHg (35.0-45.0) L Arterial Blood Partial Pressure O2 98.0 mmHg (75.0-100.0) Arterial Blood HCO3 25.6 mmol/L (22.0-26.0) Arterial Blood Oxygen Saturation 97.6 % (95-100) Arterial Blood Base Excess 3.7 (-2-2) H Ted Test Positive White Blood Count 10.6 K/UL (4.8-10.8) 7.6 K/UL (4.8-10.8) Red Blood Count 3.17 M/UL (4.70-6.10) L 3.46 M/UL (4.70-6.10) L Hemoglobin 9.6 G/DL (14.2-18.0) L 10.4 G/DL (14.2-18.0) L Hematocrit 29.8 % (42.0-52.0) L 33.9 % (42.0-52.0) L Mean Corpuscular Volume 94 FL (80-99) 98 FL (80-99) Mean Corpuscular Hemoglobin 30.2 PG (27.0-31.0) 30.2 PG (27.0-31.0) Mean Corpuscular Hemoglobin Concent 32.2 G/DL (32.0-36.0) 30.8 G/DL (32.0-36.0) L Red Cell Distribution Width 15.1 % (11.6-14.8) H 16.3 % (11.6-14.8) H Platelet Count 260 K/UL (150-450) 230 K/UL (150-450) Mean Platelet Volume 6.0 FL (6.5-10.1) L 6.1 FL (6.5-10.1) L Neutrophils (%) (Auto) 78.9 % (45.0-75.0) H 72.8 % (45.0-75.0) Lymphocytes (%) (Auto) 12.4 % (20.0-45.0) L 14.5 % (20.0-45.0) L Monocytes (%) (Auto) 6.4 % (1.0-10.0) 8.8 % (1.0-10.0) Eosinophils (%) (Auto) 1.6 % (0.0-3.0) 2.5 % (0.0-3.0) Basophils (%) (Auto) 0.8 % (0.0-2.0) 1.4 % (0.0-2.0) Prothrombin Time 64.9 SEC (9.30-11.50) H 71.2 SEC (9.30-11.50) H Prothromb Time International Ratio 6.8 (0.9-1.1) *H 7.5 (0.9-1.1) *H Activated Partial Thromboplast Time > 150 SEC (23-33) *H 57 SEC (23-33) H Sodium Level 136 MMOL/L (136-145) 137 MMOL/L (136-145) Potassium Level 3.1 MMOL/L (3.5-5.1) L 3.2 MMOL/L (3.5-5.1) L Chloride Level 98 MMOL/L (98-107) 99 MMOL/L (98-107) Carbon Dioxide Level 27 MMOL/L (21-32) 29 MMOL/L (21-32) Anion Gap 11 mmol/L (5-15) 9 mmol/L (5-15) Blood Urea Nitrogen 16 mg/dL (7-18) 18 mg/dL (7-18) Creatinine 4.9 MG/DL (0.55-1.30) H 5.3 MG/DL (0.55-1.30) H Estimat Glomerular Filtration Rate 14.3 mL/min (>60) 13.1 mL/min (>60) Glucose Level 111 MG/DL (74-106) H 86 MG/DL (74-106) Lactic Acid Level 1.90 mmol/L (0.4-2.0) Calcium Level 9.3 MG/DL (8.5-10.1) 9.2 MG/DL (8.5-10.1) Phosphorus Level 2.1 MG/DL (2.5-4.9) L 2.8 MG/DL (2.5-4.9) Magnesium Level 1.7 MG/DL (1.8-2.4) L 1.9 MG/DL (1.8-2.4) Total Bilirubin 0.6 MG/DL (0.2-1.0) 0.5 MG/DL (0.2-1.0) Aspartate Amino Transf (AST/SGOT) 21 U/L (15-37) 24 U/L (15-37) Alanine Aminotransferase (ALT/SGPT) 13 U/L (12-78) 9 U/L (12-78) L Alkaline Phosphatase 166 U/L (46-116) H 176 U/L (46-116) H Total Creatine Kinase 98 U/L (26-308) Creatine Kinase MB 3.0 NG/ML (0.0-3.6) Creatine Kinase MB Relative Index 3.0 Troponin I 0.003 ng/mL (0.000-0.056) 0.000 ng/mL (0.000-0.056) Pro-B-Type Natriuretic Peptide 63325 pg/mL (0-125) H 30278 pg/mL (0-125) H Total Protein 7.2 G/DL (6.4-8.2) 7.5 G/DL (6.4-8.2) Albumin 2.2 G/DL (3.4-5.0) L 2.3 G/DL (3.4-5.0) L Globulin 5.0 g/dL 5.2 g/dL Albumin/Globulin Ratio 0.4 (1.0-2.7) L 0.4 (1.0-2.7) L Lipase 42 U/L (73-393) L Urine Color Brown Urine Appearance Turbid Urine pH 8 (4.5-8.0) Urine Specific [place] 1.015 (1.005-1.035) Urine Protein 4+ (NEGATIVE) H Urine Glucose (UA) 1+ (NEGATIVE) H Urine Ketones 1+ (NEGATIVE) H Urine Blood 5+ (NEGATIVE) H Urine Nitrite Negative (NEGATIVE) Urine Bilirubin Negative (NEGATIVE) Urine Urobilinogen Normal MG/DL (0.0-1.0) Urine Leukocyte Esterase 3+ (NEGATIVE) H Urine RBC Tntc /HPF (0 - 0) H Urine WBC Tntc /HPF (0 - 0) H Urine Squamous Epithelial Cells Many /LPF (NONE/OCC) H Urine Bacteria Many /HPF (NONE) H D-Dimer 1.47 mg/L FEU (0.00-0.49) H Hemoglobin A1c 6.1 % (4.3-6.0) H Uric Acid 5.2 MG/DL (2.6-7.2) Iron Level 37 ug/dL (50-175) L Total Iron Binding Capacity 91 ug/dL (250-450) L Percent Iron Saturation 41 % (15-50) Unsaturated Iron Binding 54 ug/dL (112-346) L Ferritin 1820 NG/ML (8-388) H C-Reactive Protein, Quantitative 20.4 mg/dL (0.00-0.90) H Triglycerides Level 73 MG/DL (30-150) Cholesterol Level 150 MG/DL (< 200) LDL Cholesterol 79 mg/dL (<100) HDL Cholesterol 49 MG/DL (40-60) Cholesterol/HDL Ratio 3.1 (3.3-4.4) L Vitamin B12 Level 835 PG/ML (193-986) Folate 15.1 NG/ML (8.6-58.9) Microbiology Date/Time Source Procedure Growth Status 05/23/19 16:26 Urine,Clean Catch Urine Culture - Preliminary Resulted Height (Feet): 5 Height (Inches): 10.00 Weight (Pounds): 203 Medications Current Medications Medications (Trade) Dose Ordered Sig/Divya Route PRN Reason Start Time Stop Time Status Last Admin Dose Admin Acetaminophen (Tylenol) 650 mg Q4H PRN ORAL Mild Pain (Pain Scale 1-3) 05/23/19 18:15 06/22/19 18:14 Acetaminophen (Tylenol) 650 mg Q4H PRN ORAL fever (temp>100.5F) 05/23/19 18:15 06/22/19 18:14 Al Hydroxide/Mg Hydroxide (Mylanta II) 30 ml Q6H PRN ORAL dyspepsia 05/23/19 18:15 06/22/19 18:14 Albuterol/ Ipratropium (Albuterol/ Ipratropium) 3 ml Q4HRT HHN 05/24/19 03:00 05/29/19 02:59 05/24/19 07:04 Albuterol/ Ipratropium (Albuterol/ Ipratropium) 3 ml Q6H PRN HHN Shortness of Breath 05/23/19 18:15 05/28/19 18:14 Aripiprazole (Abilify) 15 mg DAILY ORAL 05/24/19 09:00 06/23/19 08:59 05/24/19 09:19 Atorvastatin Calcium (Lipitor) 40 mg DAILY ORAL 05/24/19 09:00 06/23/19 08:59 05/24/19 09:19 Ceftriaxone Sodium 1 gm/ Dextrose 55 ml @ 110 mls/hr Q24H IVPB 05/24/19 18:00 05/31/19 17:59 Dextrose (Dextrose 50%) 25 ml Q30M PRN IV Hypoglycemia 05/23/19 18:15 06/22/19 18:14 Dextrose (Dextrose 50%) 50 ml Q30M PRN IV Hypoglycemia 05/23/19 18:15 06/22/19 18:14 Diphenhydramine HCl (Benadryl) 25 mg Q6H PRN ORAL Itching/Pruritis 05/23/19 18:15 06/22/19 18:14 Hydromorphone HCl (Dilaudid) 0.5 mg Q6H PRN IVP Severe Pain (Pain Scale 7-10) 05/23/19 18:15 05/30/19 18:14 Isosorbide Mononitrate (Imdur) 60 mg DAILY ORAL 05/24/19 09:00 06/23/19 08:59 05/24/19 09:19 Lisinopril (Prinivil) 20 mg DAILY ORAL 05/24/19 09:00 06/23/19 08:59 05/24/19 09:19 Lorazepam (Ativan) 1 mg Q4H PRN ORAL For Anxiety 05/23/19 18:15 05/30/19 18:14 Metoclopramide HCl (Reglan) 10 mg Q6H PRN IVP Nausea & Vomiting 05/23/19 18:15 06/22/19 18:14 Ondansetron HCl (Zofran) 4 mg Q6H PRN IVP Nausea & Vomiting 05/23/19 18:15 06/22/19 18:14 Pantoprazole (Protonix) 40 mg DAILY ORAL 05/24/19 09:00 06/23/19 08:59 05/24/19 09:19 Potassium Phosphate 30 mm/ Sodium Chloride 285 ml @ 47.5 mls/hr ONCE IV 05/24/19 05:00 05/24/19 11:00 05/24/19 05:48 Prochlorperazine (Compazine) 10 mg Q6H PRN IVP Nausea & Vomiting 05/23/19 18:15 06/22/19 18:14 Sertraline HCl (Zoloft) 50 mg DAILY ORAL 05/24/19 09:00 06/23/19 08:59 05/24/19 09:19 Sevelamer Carbonate (Renvela) 2,400 mg THREE TIMES A DAY ORAL 05/24/19 09:00 06/23/19 08:59 05/24/19 09:19 Temazepam (Restoril) 15 mg HSPRN PRN ORAL Insomnia 05/23/19 18:15 05/30/19 18:14 Vitamin B Complex/ Vit C/Folic Acid (Nephrovite) 1 tab DAILY ORAL 05/24/19 09:00 06/23/19 08:59 05/24/19 09:18 Assessment/Plan Diagnosis [place]: ~69 year oldmalewith a PMH of a fib on AC, ESRD on HD, anemia, htn, DM, COPD, HFPEF presented for acute hypoxemic respiratory failure # Acute Hypoxic Repiratory Failure likely 2/2 chf exacerbation - cardiac medications - echo - HD for fluid removal - RT - breathing treatments - Pulm Consult - f/u CXR # Supratherapeutic INR - hold coumadin - vit k +/- FFP if patient bleed - daily INR # Hyponatremia likely hypervolemic from chf - HD - CTM # ESRD - HD by Nephrology # Afib, rate controlled - cardiac meds - hold coumadin # Iron deficiency anemia - iron replacement # Full Code # Dispo- SNF (prior resident) Angie Locke DO May 24, 2019 09:47
--- NOTE | 2019-05-24 10:24 | Consultation ---
Consult Note Consult Note Asked to eval for dialysis management Know to me from his recent admission 69-year-old male AO x1 presents with acute dyspnea, patient was at the convalescent house not taking his oxygen, he is oxygen dependent has a history of COPD he was hypoxic down to the low 80s, patient is not answering questions, he is currently on a nonrebreather, history is limited secondary to patient's dementia. Onset prior to arrival, severity is severe, aggravated by not taking his oxygen , alleviated by taking his oxygen, characterization is shortness of breath No Known Allergies (Verified , 07/21/11) Hx Cardiac Problems: No - RENAL FAILURE ,DIALYSIS M.W.F Hx Hypertension: Yes Hx Pacemaker: Yes Hx Asthma: Yes Hx COPD: Yes Hx Diabetes: Yes - SHUNT RT UPPER ARM ,CENTRAL LINE LEFT CHEST Hx Dialysis: No - POOR KIDNEY FUNCTION Hx Neurological Problems: Yes Hx Cerebrovascular Accident: Yes Hx Headaches: Yes Hx Weakness: Yes - lower extremity interviewed examined data reviwed discussed with KALEIGH Bella Assessment/Plan presents with SOB: CHF vs COPD Exacerbation ESRD CHF with previous Echo showing Ej Fx 25 % h/o At fib DM HTN Anemia COPD recent ear infection HD ordered last night , not carried out- to be done today megan [facility] cardiac condition BP and BS check and control Discussed with Dr Chucky Hayes and Dig per orders Francisco Javier Abraham MD May 24, 2019 10:24
--- NOTE | 2019-05-24 10:32 | Diagnostic Imaging Report ---
EXAM: XR Chest, 1 View CLINICAL HISTORY: SOB TECHNIQUE: Frontal view of the chest. COMPARISON: No relevant prior studies available. FINDINGS: Lungs: Vascular congestion and probably interstitial edema. Pleural space: Blunting of the left costophrenic angle that may be from effusion or pleural thickening. No pneumothorax. Heart: Cardiomegaly and pacemaker. Mediastinum: Unremarkable. Bones/joints: No acute fracture. Tubes, lines and devices: Vascular catheter in the SVC. Upper abdomen: Surgical clips in the upper abdomen. IMPRESSION: Vascular congestion and probably interstitial edema.
--- NOTE | 2019-05-24 10:42 | Diagnostic Imaging Report ---
EXAM: NM Lung Perfusion and Ventilation Scan CLINICAL HISTORY: PE TECHNIQUE: Nuclear Medicine ventilation and perfusion images of the lungs were obtained in multiple projections following radiopharmaceutical inhalation followed by injection of Tc99m MAA. COMPARISON: No relevant prior studies available. FINDINGS: Ventilation: Unremarkable. No ventilation defects. Perfusion: Unremarkable. No perfusion defects. IMPRESSION: No findings to suggest pulmonary embolism.
[2019-05-24 12:00] VITALS: BP 135/74
[2019-05-24] MEDS: Docusate 100mg cap ORAL SCH ×2 (13:00→17:41)
--- NOTE | 2019-05-24 14:34 | NUR ---
Cardiology : ECHO REPORT Technically difficult study due to poor acoustical windows. Study quality precludes accurate assessment of regional wall motion. Normal left ventricular chamber size extend visualized . Anteroseptal hypokinesis. Left ventricular ejection fraction estimated to be 40-45%. No evidence of left ventricular hypertrophy. Anterior Echo-free space, may be due to pericardial fat or effusion. All other cardiac chamber sizes are within normal limits. Focal aortic valve sclerosis with adequate cusp excursion. Thickened mitral valve leaflets with normal excursion. Mitral annulus and aortic root calcification. Normal pulmonic valve structure. Normal tricuspid valve structure. IVC at normal size with physiologic collapse. Pacemaker wire present in the right side chambers. A color flow and spectral Doppler study was performed and revealed: No aortic insufficiency. Mild mitral regurgitation. Mitral inflow velocities indicates possible pseudo normalization pattern implying moderately elevated left atrial pressure (Grade II ). Mild tricuspid regurgitation. Tricuspid systolic velocities suggests peak right ventricular systolic pressure of 41mmHg,consistent with mild pulmonary HTN.
[2019-05-24] MEDS ORDERED: Tubing IV Secondary IV ONE (15:21)
[2019-05-24] MEDS ORDERED: NS 275ml ONE (15:21)
--- NOTE | 2019-05-24 15:49 | NUR ---
PT note PT tiana completed, treatment initiated. Patient has muscle weakness and poor sitting and standing balance, requiring assist of 2 persons in mobility. Patient needs PT services to increase his muscle strength and balance to improve his functional mobility and gait. Addendum: 05/24/19 at 1549 by DAYNA SANCHEZ PT Amended: Links added.
[2019-05-24 16:00] VITALS: BP 119/61
[2019-05-24] MEDS: cefTRIAXone 1gm/D5W 55ml IVPB SCH ×2 (17:40)
--- NOTE | 2019-05-24 17:58 | NUR ---
NURSE NOTES: Seen by Dr. Bond and informed him regarding VQ scan result negative. Also showed him the bump on upper chest next to port-a-cath of dialysis. Dr. Bond palpated it. Pt. didn't complain of pain. Dr. Bond said to RN just notify Dr. Haq. Will cont. to monitor.
--- NOTE | 2019-05-24 19:33 | NUR ---
NURSE NOTES: Called Dr. Haq office regarding elevated HR 140-[address] Espinal is concrete wall grinder operator for Dr. Haq.
--- NOTE | 2019-05-24 19:40 | NUR ---
NURSE NOTES: Dr. Espinal called back and ordered to give Coreg 3.125mg. now instead of 2100 dose. And call him back if pt. still having elevated HR.
--- NOTE | 2019-05-24 19:50 | NUR ---
HAND-OFF: Report given to J Luis FARRIS. Endorsed to him just in case pt. HR still elevated after Coreg 3.125mg. dose to call him back.
--- NOTE | 2019-05-24 19:51 | NUR ---
NURSE NOTES: Received pt from KALEIGH Jain. pt is awake resting in bed. Iv site intact. Bed locked in lowest position, alarm on, call light within reach. Will continue with plan of care.
[2019-05-24 20:00] VITALS: BP 121/67
--- NOTE | 2019-05-24 21:05 | Pulmonology Progress Note ---
Assessment/Plan Assessment/Plan Pulmonary Progress Note HPI Patient is a 69-year-old male with a history of Alzheimers Dementia, COPD, Hypertension, Pacemaker, CKD on HD, Previous CVA, chronic weakness, Diabetes, AO x1, presents with acute dyspnea, patient was at the convalescent house not taking his oxygen, he is oxygen dependent, has a history of COPD, he was hypoxic down to the low 80s, history is limited secondary to patient's dementia. Noted to have UTI in he ED, CXR clear. 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 Allergies: No Known Allergies Past Medical History: Alzheimers Dementia, COPD, Hypertension, Pacemaker, CKD on HD, Previous CVA, chronic weakness, Diabetes All Other Systems: limited Physical Exam Vital Signs Noted Date Time Temp Pulse Resp B/P (MAP) Pulse Ox O2 Delivery O2 Flow Rate FiO2 05/23/19 15:56 98.4 86 20 127/66 (86) 95 Simple Mask 15.0 General Appearance: no apparent distress, alert Head: normocephalic, atraumatic Eyes: bilateral eye PERRL, bilateral eye EOMI ENT: uvula midline, moist mucus membranes Neck: supple, thyroid normal, supple/symmetrical/no masses Respiratory: lungs clear, no respiratory distress, no retraction, no accessory muscle use, other - on non rebreather Cardiovascular: normal HS, normal peripheral pulses, no gallop, no murmur, tachycardia, irregular Gastrointestinal: non tender, soft, no guarding, no rebound Musculoskeletal: normal inspection Neurologic: awake, oriented x1, responsive Skin: no rash, warm/dry, no edema Impression: Dyspnea COPD Hypoxia UTI (lower urinary tract infection) Alzheimer Dementa HTN Plan - O2 PRN - HHN - R/O DVT/PE - IV Antibiotics for UTI - Monitor labs - PPX Laboratory Tests Test 05/23/19 15:59 05/23/19 16:20 05/23/19 16:26 Arterial Blood pH 7.557 (7.350-7.450) Arterial Blood Partial Pressure CO2 29.4 mmHg (35.0-45.0) L Arterial Blood Partial Pressure O2 98.0 mmHg (75.0-100.0) Arterial Blood HCO3 25.6 mmol/L (22.0-26.0) Arterial Blood Oxygen Saturation 97.6 % (95-100) Arterial Blood Base Excess 3.7 (-2-2) H Ted Test Positive White Blood Count 10.6 K/UL (4.8-10.8) Red Blood Count 3.17 M/UL (4.70-6.10) L Hemoglobin 9.6 G/DL (14.2-18.0) L Hematocrit 29.8 % (42.0-52.0) L Mean Corpuscular Volume 94 FL (80-99) Mean Corpuscular Hemoglobin 30.2 PG (27.0-31.0) Mean Corpuscular Hemoglobin Concent 32.2 G/DL (32.0-36.0) Red Cell Distribution Width 15.1 % (11.6-14.8) H Platelet Count 260 K/UL (150-450) Mean Platelet Volume 6.0 FL (6.5-10.1) L Neutrophils (%) (Auto) 78.9 % (45.0-75.0) H Lymphocytes (%) (Auto) 12.4 % (20.0-45.0) L Monocytes (%) (Auto) 6.4 % (1.0-10.0) Eosinophils (%) (Auto) 1.6 % (0.0-3.0) Basophils (%) (Auto) 0.8 % (0.0-2.0) Prothrombin Time 64.9 SEC (9.30-11.50) H Prothrombin Time INR 6.8 (0.9-1.1) *H PTT > 150 SEC (23-33) *H Sodium Level 136 MMOL/L (136-145) Potassium Level 3.1 MMOL/L (3.5-5.1) L Chloride Level 98 MMOL/L (98-107) Carbon Dioxide Level 27 MMOL/L (21-32) Anion Gap 11 mmol/L (5-15) Blood Urea Nitrogen 16 mg/dL (7-18) Creatinine 4.9 MG/DL (0.55-1.30) H Estimate Glomerular Filtration Rate 14.3 mL/min (>60) Glucose Level 111 MG/DL (74-106) H Lactic Acid Level 1.90 mmol/L (0.4-2.0) Calcium Level 9.3 MG/DL (8.5-10.1) Phosphorus Level 2.1 MG/DL (2.5-4.9) L Magnesium Level 1.7 MG/DL (1.8-2.4) L Total Bilirubin 0.6 MG/DL (0.2-1.0) Aspartate Amino Transferase (AST) 21 U/L (15-37) Alanine Aminotransferase (ALT) 13 U/L (12-78) Alkaline Phosphatase 166 U/L (46-116) H Total Creatine Kinase 98 U/L (26-308) Creatine Kinase MB 3.0 NG/ML (0.0-3.6) Creatine Kinase MB Relative Index 3.0 Troponin I 0.003 ng/mL (0.000-0.056) Pro-B-Type Natriuretic Peptide 75217 pg/mL (0-125) H Total Protein 7.2 G/DL (6.4-8.2) Albumin 2.2 G/DL (3.4-5.0) L Globulin 5.0 g/dL Albumin/Globulin Ratio 0.4 (1.0-2.7) L Lipase 42 U/L (73-393) L Urine Color Brown Urine Appearance Turbid Urine pH 8 (4.5-8.0) Urine Specific [place] 1.015 (1.005-1.035) Urine Protein 4+ (NEGATIVE) H Urine Glucose (UA) 1+ (NEGATIVE) H Urine Ketones 1+ (NEGATIVE) H Urine Blood 5+ (NEGATIVE) H Urine Nitrite Negative (NEGATIVE) Urine Bilirubin Negative (NEGATIVE) Urine Urobilinogen Normal MG/DL (0.0-1.0) Urine Leukocyte Esterase 3+ (NEGATIVE) H Urine RBC Tntc /HPF (0 - 0) H Urine WBC Tntc /HPF (0 - 0) H Urine Squamous Epithelial Cells Many /LPF (NONE/OCC) H Urine Bacteria Many /HPF (NONE) H EKG: Atrial fibrillation, rate 110, QTc 544, no acute ST elevations, normal axis Chest X-Ray: no consolidation, no pneumothorax, no acute cardiopulmonary disease Subjective ROS Limited/Unobtainable: No Allergies: Coded Allergies: No Known Allergies (Verified , 07/21/11) Objective Last 24 Hour Vital Signs Date Time Temp Pulse Resp B/P (MAP) Pulse Ox O2 Delivery O2 Flow Rate FiO2 05/24/19 20:08 135 154/101 05/24/19 19:39 63 18 95 Nasal Cannula 3.0 32 05/24/19 19:27 51 18 89 Nasal Cannula 4.0 36 05/24/19 16:01 111 05/24/19 16:00 4.0 05/24/19 16:00 98.2 78 20 119/61 (80) 100 05/24/19 14:21 95 21 97 Nasal Cannula 4.0 36 05/24/19 14:13 94 19 95 Nasal Cannula 4.0 36 05/24/19 12:00 97.0 67 20 135/74 (94) 96 05/24/19 12:00 4.0 05/24/19 11:33 115 05/24/19 11:07 98 05/24/19 11:07 98 141/61 05/24/19 10:39 98 20 96 Nasal Cannula 4.0 36 05/24/19 10:30 96 20 89 Nasal Cannula 2.0 28 05/24/19 09:19 141/61 05/24/19 09:19 141/61 05/24/19 09:00 Nasal Cannula 4.0 05/24/19 08:07 111 05/24/19 08:00 2.0 05/24/19 08:00 97.6 75 18 141/61 (87) 97 05/24/19 07:14 28 05/24/19 07:14 94 16 96 Nasal Cannula 3.0 32 05/24/19 07:04 93 18 90 Room Air 21 05/24/19 04:00 2.0 05/24/19 04:00 97.7 92 18 154/85 (108) 97 05/24/19 04:00 95 05/24/19 03:24 89 18 98 Nasal Cannula 2.0 28 05/24/19 03:15 28 05/24/19 03:14 87 18 97 Nasal Cannula 2.0 28 05/24/19 00:00 97.5 75 18 154/69 (97) 95 05/24/19 00:00 93 05/24/19 00:00 2.0 Intake and Output 05/23/19 05/24/19 18:59 06:59 Intake Total 55 ml 347.5 ml Output Total 140 ml Balance -85 ml 347.5 ml IV Total 55 ml 347.5 ml Output Urine Total 140 ml # Voids 1 # Bowel Movements 2 Microbiology Date/Time Source Procedure Growth Status 05/23/19 16:26 Urine,Clean Catch Urine Culture - Preliminary Resulted Laboratory Tests 05/24/19 02:30: White Blood Count 7.6, Red Blood Count 3.46L, Hemoglobin 10.4L, Hematocrit 33.9L , Mean Corpuscular Volume 98, Mean Corpuscular Hemoglobin 30.2, Mean Corpuscular Hemoglobin Concent 30.8L, Red Cell Distribution Width 16.3H, Platelet Count 230, Mean Platelet Volume 6.1L, Neutrophils (%) (Auto) 72.8, Lymphocytes (%) (Auto) 14.5L, Monocytes (%) (Auto) 8.8, Eosinophils (%) (Auto) 2.5, Basophils (%) (Auto) 1.4, Prothrombin Time 71.2H, Prothromb Time International Ratio 7.5*H, Activated Partial Thromboplast Time 57H, D-Dimer 1.47H, Sodium Level 137, Potassium Level 3.2L, Chloride Level 99, Carbon Dioxide Level 29, Anion Gap 9, Blood Urea Nitrogen 18, Creatinine 5.3H, Estimat Glomerular Filtration Rate 13.1, Glucose Level 86, Hemoglobin A1c 6.1H, Uric Acid 5.2, Calcium Level 9.2, Phosphorus Level 2.8, Magnesium Level 1.9, Iron Level 37L, Total Iron Binding Capacity 91L, Percent Iron Saturation 41, Unsaturated Iron Binding 54L, Ferritin 1820H, Total Bilirubin 0.5, Aspartate Amino Transf (AST/SGOT) 24, Alanine Aminotransferase (ALT/SGPT) 9L, Alkaline Phosphatase 176H, Troponin I 0.000, C-Reactive Protein, Quantitative 20.4H, Pro- B-Type Natriuretic Peptide 63280D, Total Protein 7.5, Albumin 2.3L, Globulin 5.2 , Albumin/Globulin Ratio 0.4L, Triglycerides Level 73, Cholesterol Level 150, LDL Cholesterol 79, HDL Cholesterol 49, Cholesterol/HDL Ratio 3.1L, Vitamin B12 Level 835, Folate 15.1, Hepatitis B Surface Antigen [Pending] Current Medications Medications (Trade) Dose Ordered Sig/Divya Route PRN Reason Start Time Stop Time Status Last Admin Dose Admin Acetaminophen (Tylenol) 650 mg Q4H PRN ORAL Mild Pain (Pain Scale 1-3) 05/23/19 18:15 06/22/19 18:14 Acetaminophen (Tylenol) 650 mg Q4H PRN ORAL fever (temp>100.5F) 05/23/19 18:15 06/22/19 18:14 Albuterol/ Ipratropium (Albuterol/ Ipratropium) 3 ml Q4HRT HHN 05/24/19 03:00 05/29/19 02:59 05/24/19 19:26 Albuterol/ Ipratropium (Albuterol/ Ipratropium) 3 ml Q6H PRN HHN Shortness of Breath 05/23/19 18:15 05/28/19 18:14 Aripiprazole (Abilify) 15 mg DAILY ORAL 05/24/19 09:00 06/23/19 08:59 05/24/19 09:19 Atorvastatin Calcium (Lipitor) 40 mg QHS ORAL 05/25/19 21:00 06/23/19 08:59 Carvedilol (Coreg) 3.125 mg EVERY 12 HOURS ORAL 05/24/19 21:00 06/23/19 20:59 Ceftriaxone Sodium 1 gm/ Dextrose 55 ml @ 110 mls/hr Q24H IVPB 05/24/19 18:00 05/31/19 17:59 05/24/19 17:40 Dextrose (Dextrose 50%) 25 ml Q30M PRN IV Hypoglycemia 05/23/19 18:15 06/22/19 18:14 Dextrose (Dextrose 50%) 50 ml Q30M PRN IV Hypoglycemia 05/23/19 18:15 06/22/19 18:14 Diphenhydramine HCl (Benadryl) 25 mg Q6H PRN ORAL Itching/Pruritis 05/23/19 18:15 06/22/19 18:14 Docusate Sodium (Colace) 100 mg THREE TIMES A DAY ORAL 05/24/19 13:00 06/23/19 12:59 05/24/19 17:41 Hydromorphone HCl (Dilaudid) 0.5 mg Q6H PRN IVP Severe Pain (Pain Scale 7-10) 05/23/19 18:15 05/30/19 18:14 Isosorbide Mononitrate (Imdur) 60 mg DAILY ORAL 05/24/19 09:00 06/23/19 08:59 05/24/19 09:19 Lisinopril (Prinivil) 20 mg DAILY ORAL 05/24/19 09:00 06/23/19 08:59 05/24/19 09:19 Lorazepam (Ativan) 1 mg Q4H PRN ORAL For Anxiety 05/23/19 18:15 05/30/19 18:14 Metoclopramide HCl (Reglan) 10 mg Q6H PRN IVP Nausea & Vomiting 05/23/19 18:15 06/22/19 18:14 Ondansetron HCl (Zofran) 4 mg Q6H PRN IVP Nausea & Vomiting 05/23/19 18:15 06/22/19 18:14 Pantoprazole (Protonix) 40 mg EVERY 12 HOURS ORAL 05/24/19 21:00 06/23/19 20:59 Prochlorperazine (Compazine) 10 mg Q6H PRN IVP Nausea & Vomiting 05/23/19 18:15 06/22/19 18:14 Sertraline HCl (Zoloft) 50 mg DAILY ORAL 05/24/19 09:00 06/23/19 08:59 05/24/19 09:19 Sevelamer Carbonate (Renvela) 1,600 mg THREE TIMES A DAY ORAL 05/24/19 13:00 06/23/19 08:59 05/24/19 17:41 Temazepam (Restoril) 15 mg HSPRN PRN ORAL Insomnia 05/23/19 18:15 05/30/19 18:14 Vitamin B Complex/ Vit C/Folic Acid (Nephrovite) 1 tab DAILY ORAL 05/24/19 09:00 06/23/19 08:59 05/24/19 09:18 Navneet Bond MD May 24, 2019 21:05
[2019-05-25] VITALS: BP 133/72
--- NOTE | 2019-05-25 | NUR ---
NURSE NOTES: Contacted Dr. Espinal in regard to pt V-tach episode of 5 beats. Order received from Dr. Espinal to administer a one time dose of Coreg 3.125mg. Order carried out.
[2019-05-25] MEDS: Albuterol/Ipratropium 3ml neb HHN SCH ×6 (02:43→23:00)
[2019-05-25] MEDS: LORazepam 1mg tab ORAL PRN ×3 (03:59→15:38)
[2019-05-25 04:00] VITALS: BP 122/82
--- NOTE | 2019-05-25 07:20 | NUR ---
HAND-OFF: Report given to KALEIGH Hester. Endorsed plan of care.
--- NOTE | 2019-05-25 07:55 | NUR ---
Received patient from Svetlana Dietz. Patient in bed awake, confused. Agitated towards staff. attempting to get out of bed. Safety precautions in place. Side rails X3 up. Call berger within reach. Reassurance provided to patient. IV line is infiltrated. Will attempt to insert once patient is calm. Will monitor patient throughout the shift.
[2019-05-25 08:00] VITALS: BP 135/74
[2019-05-25] MEDS: Sertraline 50mg tab ORAL SCH (09:01)
[2019-05-25] MEDS: Nephrovite tab (Rena-Vite) ORAL SCH (09:02)
[2019-05-25] MEDS: Imdur 30mg tab ORAL SCH (09:02)
[2019-05-25] MEDS: Docusate 100mg cap ORAL SCH ×3 (09:02→17:15)
[2019-05-25] MEDS: Lisinopril 20mg tab ORAL SCH (09:03)
--- NOTE | 2019-05-25 10:00 | NUR ---
Dr. Saravia made aware of critical lab result INR of 6.8, PT 65.4. Patient has no active bleeding noted. Levels improved as compared from yesterday. No new orders obtained
--- NOTE | 2019-05-25 10:24 | NUR ---
SWALLOW/SPEECH THERAPY NOTE: REFERRED FOR SWALLOW EVALUATION BY DR. DURON, SEE FULL REPORT TO FOLLOW. DYSPHAGIA RISK FACTORS FOR THIS 69 Y.O.M.: ACUTE ISSUES: SOB, HYPOXIC RESP FAILURE ON 2 LITERS NC RR 20-24, LUNGS HAVE VASCULAR CONGESTION AND PROBABLE INTERSTITIAL EDEMA, HIGH PULSE H/O PNA (NOTED IN HX FOR 07/2011 ADMIT), OROPHARYNGEAL DYSPHAGIA, OBESITY, DM, DEMENTIA, CVA, GERD (ON MEDS AT SNF), COPD, ESRD WITH HD, HFPEF (HEART FAILURE WITH PRESERVED EJECTION FRACTION, [place] WITH PACEMAKER, GLAUCOMA L EYE BLIND, ON DEPRESSION AND ALBUTEROL MEDS AT SNF. NO POLST/AD REGARDING ARTIFICIAL NUTRITION AT [facility] ON A RENAL PUREED AND NECTAR THICK LIQUID DIET AND RECENTLY UPGRADED TO [facility] (CHOPPED) AND NTL AND SEEING ST FOR DYSPHAGIA, DIET TEXTURE ANALYSIS AND COGNITIVE-COMMUNICATIVE THERAPY. AT [facility] [place], [place] 03/[address] RD HAD PATIENT ON CCHO-LOW AND MED AND DARLENE REGULAR TEXTURE AND THIN LIQUID DIET BUT NOT SEEN BY VIDEO EDITOR. ALSO RECOMMENDED 2 X PROTEIN PORTIONS AND NEPRHOVITE ONE CAN DAILY. CURRENTLY NPO EXCEPT MEDS/ICE CHIPS AND START RENAL DIET IF PASSES SWALLOW EVAL AND ALERT. PATIENT IS ALERT BUT REFUSING SOME PROCEDURES. WANTS TO EAT/DRINK BY MOUTH NOW. ASKING FOR SKELTON AND EGGS. SOB AT REST WITH 2 LITERS 02 NC. RR TENDS TO BE 20-24. ADMITS TO COUGHING ON THIN LIQUIDS WILL HOLD ON THIN LIQUID TRIAL FOR NOW DUE TO QUESTIONABLE NEGATIVE CXR AND LUNG STATUS. INITIAL IMPRESSIONS: S/S OF AT LEAST A MILD OROPHARYNGEAL DYSPHAGIA WITH OVERALL MILD INCREASE IN ORAL PREP AND OROPHARYNGEAL TRANSIT TIMES. APPEARED TO HAVE A GROSSLY FUNCTIONAL SWALLOW WITH NO ORAL RESIDUE NOR OVERT S/S OF ASPIRATION WITH NECTAR THICK LIQUIDS TSP/CUP PUREED TSP HAD MILDLY INCREASED 5-7 SECOND TRANSIT TIMES (TENDED TO CHEW IT UNNECESSARILY) W/O ORAL RESIDUE NOR OVERT ASPIRATION WILL HOLD ON MASTICATED SOLIDS FOR NOW (HAS UPPER/LOWER FULL DENTURES) POOR ABILITY TO FOLLOW ORAL COMMANDS BUT TONGUE/LIPS ARE GROSSLY FUNCTIONAL AND VOICE IS CLEAR. RECOMMENDATIONS CONSERVATIVELY, CONSIDER COMPLETING A MODIFIED BARIUM SWALLOW STUDY TO FURTHER ASSESS SWALLOW, DETERMINE SILENT ASPIRATION RISK/ETIOLOGY, AND ATTEMPT TRIAL TX. IF PO GIVEN FOR QUALITY OF LIFE, INITIATE PUREED AND NECTAR THICK LIQUID DIET AND CCHO-LOW RENAL DIET RECOMMENDED BY RD ON 6/5/[address] UPDATES THEIR EVAL. SEND NEPHROVITE ONE CAN DAILY. SKILLED DYSPHAGIA MANGEMENT AND TX AND COGNITIVE-COMMUNICATION EVAL/TX EDUCATED/TRAINED RN JOSHUA IN POSTED ASPIRATION AND REFLUX PRECAUTIONS. LEFT MESSAGE WITH DR DURON.
[2019-05-25 10:28] LABS: BASOPHILS % (AUTO) 2.7 % (0.0-2.0); EOSINOPHILS % (AUTO) 3.5 % (0.0-3.0); HEMATOCRIT 31.5 % (42.0-52.0); HEMOGLOBIN 9.7 G/DL (14.2-18.0); LYMPHOCYTES % (AUTO) 11.9 % (20.0-45.0); MEAN CORPUSCULAR VOLUME 96 FL (80-99); MONOCYTES % (AUTO) 13.7 % (1.0-10.0); NEUTROPHILS % (AUTO) 68.1 % (45.0-75.0); PLATELET COUNT 199 K/UL (150-450); RED BLOOD COUNT 3.27 M/UL (4.70-6.10); RED CELL DISTRIBUTION WIDTH 15.9 % (11.6-14.8); WHITE BLOOD COUNT 8.8 K/UL (4.8-10.8)
[2019-05-25 10:29] LABS: ALANINE AMINOTRANSFERASE 11 U/L (12-78); ALBUMIN/GLOBULIN RATIO 0.4 (1.0-2.7); ALKALINE PHOSPHATASE 165 U/L (46-116); ANION GAP 8 mmol/L (5-15); ASPARTATE AMINO TRANSFERASE 21 U/L (15-37); BILIRUBIN,TOTAL 0.4 MG/DL (0.2-1.0); BLOOD UREA NITROGEN 17 mg/dL (7-18); CALCIUM 8.9 MG/DL (8.5-10.1); CARBON DIOXIDE 32 MMOL/L (21-32); CHLORIDE 99 MMOL/L (98-107); CREATININE 5.5 MG/DL (0.55-1.30); PHOSPHORUS 3.6 MG/DL (2.5-4.9); POTASSIUM 3.7 MMOL/L (3.5-5.1); SODIUM 139 MMOL/L (136-145)
[2019-05-25 10:44] LABS: INR 6.8 (0.9-1.1)
[2019-05-25 12:00] VITALS: BP 114/56
--- NOTE | 2019-05-25 12:14 | Nephrology Progress Note ---
Assessment/Plan Problem List: (1) ESRF (end stage renal failure) (2) Cardiomyopathy (3) COPD (chronic obstructive pulmonary disease) (4) Anemia Assessment presents with SOB: CHF vs COPD Exacerbation ESRD CHF with previous Echo showing Ej Fx 40 % h/o At fib DM HTN Anemia COPD recent ear infection Plan HD done 05/24 next Optimize cardiac condition BP and BS check and control Discussed with Dr Chucky Hayes and Dig per orders Subjective ROS Limited/Unobtainable: No Constitutional: Reports: malaise Objective Objective Last 24 Hour Vital Signs Date Time Temp Pulse Resp B/P (MAP) Pulse Ox O2 Delivery O2 Flow Rate FiO2 05/25/19 12:00 97.8 97 20 114/56 (75) 100 05/25/19 12:00 2.0 05/25/19 11:04 72 20 99 Nasal Cannula 2.0 28 05/25/19 10:57 61 22 99 Nasal Cannula 2.0 28 05/25/19 09:03 135/74 05/25/19 09:02 118 135/74 05/25/19 09:02 135/74 05/25/19 09:00 126 05/25/19 09:00 Nasal Cannula 2.0 05/25/19 08:00 2.0 05/25/19 08:00 97.9 118 20 135/74 (94) 100 05/25/19 07:21 Room Air 21 05/25/19 07:21 Room Air 21 05/25/19 04:00 110 05/25/19 04:00 98.5 110 24 122/82 (95) 95 05/25/19 04:00 2.0 05/25/19 02:50 72 18 99 Nasal Cannula 2.0 28 05/25/19 02:40 62 20 98 Nasal Cannula 2.0 28 05/25/19 01:33 112 100/67 05/25/19 00:00 97.9 117 18 133/72 (92) 94 05/25/19 00:00 117 05/25/19 00:00 2.0 05/24/19 22:21 70 18 97 Room Air 21 05/24/19 22:10 68 18 97 Room Air 21 05/24/19 21:00 Nasal Cannula 2.0 05/24/19 20:08 135 154/101 05/24/19 20:00 97.7 122 19 121/67 (85) 93 05/24/19 20:00 122 05/24/19 19:39 63 18 95 Nasal Cannula 3.0 32 05/24/19 19:27 51 18 89 Nasal Cannula 4.0 36 05/24/19 16:01 111 05/24/19 16:00 4.0 05/24/19 16:00 98.2 78 20 119/61 (80) 100 05/24/19 14:21 95 21 97 Nasal Cannula 4.0 36 05/24/19 14:13 94 19 95 Nasal Cannula 4.0 36 Intake and Output 05/24/19 05/25/19 19:00 07:00 Output Total 6000 ml Balance -6000 ml Hemodialysis UF 6000 ml # Voids 1 # Bowel Movements 2 2 Laboratory Tests 05/25/19 08:55: White Blood Count 8.8, Red Blood Count 3.27L, Hemoglobin 9.7L, Hematocrit 31.5L , Mean Corpuscular Volume 96, Mean Corpuscular Hemoglobin 29.6, Mean Corpuscular Hemoglobin Concent 30.7L, Red Cell Distribution Width 15.9H, Platelet Count 199, Mean Platelet Volume 6.0L, Neutrophils (%) (Auto) 68.1, Lymphocytes (%) (Auto) 11.9L, Monocytes (%) (Auto) 13.7H, Eosinophils (%) (Auto ) 3.5H, Basophils (%) (Auto) 2.7H, Prothrombin Time 65.4H, Prothromb Time International Ratio 6.8*H, Sodium Level 139, Potassium Level 3.7, Chloride Level 99, Carbon Dioxide Level 32, Anion Gap 8, Blood Urea Nitrogen 17, Creatinine 5.5H, Estimat Glomerular Filtration Rate 12.5, Glucose Level 81, Uric Acid 5.7, Calcium Level 8.9, Phosphorus Level 3.6, Magnesium Level 2.4, Total Bilirubin 0.4, Aspartate Amino Transf (AST/SGOT) 21, Alanine Aminotransferase (ALT/SGPT) 11L, Alkaline Phosphatase 165H, Total Protein 6.8, Albumin 2.0L, Globulin 4.8, Albumin/Globulin Ratio 0.4L, Digoxin Level 0.7 Height (Feet): 5 Height (Inches): 10.00 Weight (Pounds): 196 General Appearance: no apparent distress Cardiovascular: tachycardia Respiratory/Chest: decreased breath sounds Abdomen: distended Francisco Javier Abraham MD May 25, 2019 12:14
--- NOTE | 2019-05-25 12:46 | General Progress Note ---
Assessment/Plan Status: stable Assessment/Plan: 69 year oldrola a PMH of a fib on AC, ESRD on HD, anemia, htn, DM, COPD, HFPEF presented for acute hypoxemic respiratory failure # Acute Hypoxic Repiratory Failure likely 2/2 chf exacerbation - cardiac medications - echo - HD for fluid removal per Dr. Chen - RT - breathing treatments - Pulm Consult appreciated # Supratherapeutic INR - hold coumadin - vit k +/- FFP if patient bleeds - daily INR needed # Hyponatremia likely hypervolemic from chf - HD - CTM # ESRD - HD by Nephrology # Afib, rate is moderately controlled and overnight with 4 beat VT vs widened QRS. Will notify Dr. Stone to follow up. - cardiac meds - hold coumadin # Iron deficiency anemia - iron replacement # Dysphagia with aspiration risk - Discussed with ST - Dietary adjustment - Daily ST and adjustments as needed # Full Code # Dispo- SNF (prior resident) Subjective ROS Limited/Unobtainable: Yes Allergies: Coded Allergies: No Known Allergies (Verified , 07/21/11) Subjective Reports having things to do and when asked about it, then is not able to explain. Objective Last 24 Hour Vital Signs Date Time Temp Pulse Resp B/P (MAP) Pulse Ox O2 Delivery O2 Flow Rate FiO2 05/25/19 12:00 97.8 97 20 114/56 (75) 100 05/25/19 12:00 2.0 05/25/19 11:04 72 20 99 Nasal Cannula 2.0 28 05/25/19 10:57 61 22 99 Nasal Cannula 2.0 28 05/25/19 09:03 135/74 05/25/19 09:02 118 135/74 05/25/19 09:02 135/74 05/25/19 09:00 126 05/25/19 09:00 Nasal Cannula 2.0 05/25/19 08:00 2.0 05/25/19 08:00 97.9 118 20 135/74 (94) 100 05/25/19 07:21 Room Air 21 05/25/19 07:21 Room Air 21 05/25/19 04:00 110 05/25/19 04:00 98.5 110 24 122/82 (95) 95 05/25/19 04:00 2.0 05/25/19 02:50 72 18 99 Nasal Cannula 2.0 28 05/25/19 02:40 62 20 98 Nasal Cannula 2.0 28 05/25/19 01:33 112 100/67 05/25/19 00:00 97.9 117 18 133/72 (92) 94 05/25/19 00:00 117 05/25/19 00:00 2.0 05/24/19 22:21 70 18 97 Room Air 21 05/24/19 22:10 68 18 97 Room Air 21 05/24/19 21:00 Nasal Cannula 2.0 05/24/19 20:08 135 154/101 05/24/19 20:00 97.7 122 19 121/67 (85) 93 05/24/19 20:00 122 05/24/19 19:39 63 18 95 Nasal Cannula 3.0 32 05/24/19 19:27 51 18 89 Nasal Cannula 4.0 36 05/24/19 16:01 111 05/24/19 16:00 4.0 05/24/19 16:00 98.2 78 20 119/61 (80) 100 05/24/19 14:21 95 21 97 Nasal Cannula 4.0 36 05/24/19 14:13 94 19 95 Nasal Cannula 4.0 36 Intake and Output 05/24/19 05/25/19 19:00 07:00 Output Total 6000 ml Balance -6000 ml Hemodialysis UF 6000 ml # Voids 1 # Bowel Movements 2 2 Laboratory Tests 05/25/19 08:55: White Blood Count 8.8, Red Blood Count 3.27L, Hemoglobin 9.7L, Hematocrit 31.5L , Mean Corpuscular Volume 96, Mean Corpuscular Hemoglobin 29.6, Mean Corpuscular Hemoglobin Concent 30.7L, Red Cell Distribution Width 15.9H, Platelet Count 199, Mean Platelet Volume 6.0L, Neutrophils (%) (Auto) 68.1, Lymphocytes (%) (Auto) 11.9L, Monocytes (%) (Auto) 13.7H, Eosinophils (%) (Auto ) 3.5H, Basophils (%) (Auto) 2.7H, Prothrombin Time 65.4H, Prothromb Time International Ratio 6.8*H, Sodium Level 139, Potassium Level 3.7, Chloride Level 99, Carbon Dioxide Level 32, Anion Gap 8, Blood Urea Nitrogen 17, Creatinine 5.5H, Estimat Glomerular Filtration Rate 12.5, Glucose Level 81, Uric Acid 5.7, Calcium Level 8.9, Phosphorus Level 3.6, Magnesium Level 2.4, Total Bilirubin 0.4, Aspartate Amino Transf (AST/SGOT) 21, Alanine Aminotransferase (ALT/SGPT) 11L, Alkaline Phosphatase 165H, Total Protein 6.8, Albumin 2.0L, Globulin 4.8, Albumin/Globulin Ratio 0.4L, Digoxin Level 0.7 Height (Feet): 5 Height (Inches): 10.00 Weight (Pounds): 196 General Appearance: WD/WN EENT: PERRL/EOMI Neck: normal alignment Cardiovascular: normal rate Respiratory/Chest: lungs clear Abdomen: normal bowel sounds Extremities: normal range of motion Neurologic: rounder hand II-XII grossly normal Skin: normal pigmentation Riccardo Saravia MD May 25, 2019 12:46
--- NOTE | 2019-05-25 13:16 | NUR ---
SWALLOW/SPEECH THERAPY NOTE: COMPLETED MOD BARIUM SWALLOW STUDY, SEE FULL REPORT TO FOLLOW IN ST CARE ACTIVITY SECTION. INITIAL IMPRESSIONS: MODERATE TO SEVERE OROPHARYNGEAL TRANSIT TIMES WITH OVERALL INCREASED TRANSIT TIMES DUE TO SENSORIMOTOR DEFICITS. NO SIGNIFICANT ASPIRATION NOR PENETRATION BUT HAS HIGH RISK FOR CHRONIC TRACE ASPIRATION WITH ALL CONSISTENCIES PARTICULARLY IF PRECAUTIONS AND SWALLOWING STRATEGIES ARE NOT USED. LESS EFFICIENT WITH THICKER CONSISTENCIES OF HONEY AND PUREED TSP. WILL REVIEW AGAIN BUT PATIENT MAY HAVE HAD A SILENT AND TRACE (BUT NOT SIGNIFICANT) ASPIRATION TO DEEP LARYNGEAL PENETRATION WITH NECTAR THICK LIQUIDS STRAW SEQUENTAIL AFTER THE SWALLOW (? DUE TO REDUCED PHARYNGEAL MOTILITY). NO SEQUENTIAL SIPS NOR USE OF STRAW RECOMMENDED. DEFICITS AND COMPONENTS THAT INCREASE ASPIRATION/PENETRATION RISK AND REDUCE SWALLOWING EFFICIENCY ARE THE FOLLOWING: ORAL PREP ORAL APRAXIA / AWARENESS / SENSATION DEFICITS Oral Impairment Lip Closure (CUED TO CLOSE LIPS FOR CUP (MOUTH WAS OPEN BETTER WITH CUES) Tongue Control Bolus transport/lingual motion Oral residue Initiation pharyngeal swallow very delayed extra/2nd swallow Pharyngeal Impairment Laryngeal elevation (LE) Ant. hyoid excursion Epiglottic movement Laryngeal vestibule closure Pharyngeal stripping wave pharyngoesophageal segment opening Tongue base retraction Pharyngeal residue Decrease pharyngeal sensation ESOPHAGEAL PHASE GROSSLY FUNCTIONAL BUT LIMITED VIEW due to shoulder obstruction and lateral view BENEFITS FROM MORE TIME, SOMETIMES EXTRA SWALLOW (NOT CONSISTENT AND VERY DELAYED DUE TO CLEAR OROPHARYNGEAL RESIDUE DUE TO POOR SENSATION IN PHARYNX), AND LIQUID WASH. POOR FOLLOWING OTHER TX STRATEGIES BUT MAY BENEFIT FROM CUES TO SWALLOW HARD 2X. RECOMMENDATIONS: PATIENT IS NOT RECEPTIVE TO NONORAL FEEDINGS AND MAY NOT BE RECEPTIVE TO DYSPHAGIA DIET SINCE HE IS ASKING FOR HAMBURGER, EGGS, AND SKELTON. FOR QUALITY OF LIFE, CONSIDER INITIATE PO INTAKE OF LIQUIFIED PUREED LIKE NECTAR THICK SOUP CONSISTENCY WITH NECTAR THICK LIQUIDS TSP TO VERY SMALL SIP AND WITH OTHER POSTED ASPIRATION AND REFLUX PRECAUTIONS AND ONE TO ONE FEEDING. PER RD LAST ADMIT RENAL AND CCHO-LOW DIET TYPE UNTIL THEY ASSESS FOR THIS ADMIT. DR ZAMARRIPA (WHO IS NOW ON SERVICE FOR PATIENT) AGREES WITH RECOMMENDATIONS. SKILLED DYSPHAGIA MANAGEMENT AND TX EDUCATED/TRAINED RN (JOSHUA) IN POSTED ASPIRATION / REFLUX PRECAUTIONS. D/W PATIENT WHO MAY LATER REFUSED DIET TEXTURES SO WILL CONSIDER MEAL SUPERVISION WITH UPGRADED DIETS IF INTAKE POOR.
--- NOTE | 2019-05-25 13:37 | NUR ---
Emt ParamedicRegional Office Coordinator 69 Y/O Male [facility]BC[facility] CC: Low O2 sat SI: Hypoxia VS: BP: 97/57 HR: 110 RR 15 02 Sat 100% (NC-2L) T: 97.9 NT: RBC 3.17 HgB 9.6 Hct 29.8 INR 6.8 PT 64.9 PTT >150 UR protein 4+ UR ketones 1+ Potassium 3.1 Creatinine 4.9 Glucose random 111 Phosphorus 2.1 Magnesium 1.7 Alkaline Phosp 42 NT-proBNP 80797 Arterial Blood 7.557; 29.4; 3.7 NM VQ Scan w/ Lung Perfusion: negative IS: none Admitted to Telemetry Telemetry status DCP: Pending Hospital Stay
[2019-05-25 16:00] VITALS: BP 126/80
[2019-05-25] MEDS: cefTRIAXone 1gm/D5W 55ml IVPB SCH ×2 (17:04)
--- NOTE | 2019-05-25 18:35 | Cardiac Electrophysiology PN ---
Subjective Subjective [id number] Objective Last 24 Hour Vital Signs Date Time Temp Pulse Resp B/P (MAP) Pulse Ox O2 Delivery O2 Flow Rate FiO2 05/25/19 16:00 96.9 123 20 126/80 (95) 99 05/25/19 16:00 126 05/25/19 16:00 2.0 05/25/19 15:14 61 18 99 Nasal Cannula 2.0 28 05/25/19 15:04 59 20 99 Nasal Cannula 2.0 28 05/25/19 12:00 97.8 97 20 114/56 (75) 100 05/25/19 12:00 122 05/25/19 12:00 2.0 05/25/19 11:04 72 20 99 Nasal Cannula 2.0 28 05/25/19 10:57 61 22 99 Nasal Cannula 2.0 28 05/25/19 09:03 135/74 05/25/19 09:02 118 135/74 05/25/19 09:02 135/74 05/25/19 09:00 126 05/25/19 09:00 Nasal Cannula 2.0 05/25/19 08:00 2.0 05/25/19 08:00 97.9 118 20 135/74 (94) 100 05/25/19 07:21 Room Air 21 05/25/19 07:21 Room Air 21 05/25/19 04:00 110 05/25/19 04:00 98.5 110 24 122/82 (95) 95 05/25/19 04:00 2.0 05/25/19 02:50 72 18 99 Nasal Cannula 2.0 28 05/25/19 02:40 62 20 98 Nasal Cannula 2.0 28 05/25/19 01:33 112 100/67 05/25/19 00:00 97.9 117 18 133/72 (92) 94 05/25/19 00:00 117 05/25/19 00:00 2.0 05/24/19 22:21 70 18 97 Room Air 21 05/24/19 22:10 68 18 97 Room Air 21 05/24/19 21:00 Nasal Cannula 2.0 05/24/19 20:08 135 154/101 05/24/19 20:00 97.7 122 19 121/67 (85) 93 05/24/19 20:00 122 05/24/19 19:39 63 18 95 Nasal Cannula 3.0 32 05/24/19 19:27 51 18 89 Nasal Cannula 4.0 36 Intake and Output 05/24/19 05/25/19 18:59 06:59 Intake Total 0 ml Output Total 6000 ml Balance -6000 ml Intake Oral 0 ml Hemodialysis UF 6000 ml # Voids 1 # Bowel Movements 2 2 Laboratory Tests Test 05/25/19 08:55 White Blood Count 8.8 K/UL (4.8-10.8) Red Blood Count 3.27 M/UL (4.70-6.10) L Hemoglobin 9.7 G/DL (14.2-18.0) L Hematocrit 31.5 % (42.0-52.0) L Mean Corpuscular Volume 96 FL (80-99) Mean Corpuscular Hemoglobin 29.6 PG (27.0-31.0) Mean Corpuscular Hemoglobin Concent 30.7 G/DL (32.0-36.0) L Red Cell Distribution Width 15.9 % (11.6-14.8) H Platelet Count 199 K/UL (150-450) Mean Platelet Volume 6.0 FL (6.5-10.1) L Neutrophils (%) (Auto) 68.1 % (45.0-75.0) Lymphocytes (%) (Auto) 11.9 % (20.0-45.0) L Monocytes (%) (Auto) 13.7 % (1.0-10.0) H Eosinophils (%) (Auto) 3.5 % (0.0-3.0) H Basophils (%) (Auto) 2.7 % (0.0-2.0) H Prothrombin Time 65.4 SEC (9.30-11.50) H Prothromb Time International Ratio 6.8 (0.9-1.1) *H Sodium Level 139 MMOL/L (136-145) Potassium Level 3.7 MMOL/L (3.5-5.1) Chloride Level 99 MMOL/L (98-107) Carbon Dioxide Level 32 MMOL/L (21-32) Anion Gap 8 mmol/L (5-15) Blood Urea Nitrogen 17 mg/dL (7-18) Creatinine 5.5 MG/DL (0.55-1.30) H Estimat Glomerular Filtration Rate 12.5 mL/min (>60) Glucose Level 81 MG/DL (74-106) Uric Acid 5.7 MG/DL (2.6-7.2) Calcium Level 8.9 MG/DL (8.5-10.1) Phosphorus Level 3.6 MG/DL (2.5-4.9) Magnesium Level 2.4 MG/DL (1.8-2.4) Total Bilirubin 0.4 MG/DL (0.2-1.0) Aspartate Amino Transf (AST/SGOT) 21 U/L (15-37) Alanine Aminotransferase (ALT/SGPT) 11 U/L (12-78) L Alkaline Phosphatase 165 U/L (46-116) H Total Protein 6.8 G/DL (6.4-8.2) Albumin 2.0 G/DL (3.4-5.0) L Globulin 4.8 g/dL Albumin/Globulin Ratio 0.4 (1.0-2.7) L Digoxin Level 0.7 NG/ML (0.5-2.0) Microbiology Date/Time Source Procedure Growth Status 05/23/19 16:25 Blood Blood Culture - Preliminary NO GROWTH AFTER 24 HOURS Resulted 05/23/19 16:20 Blood Blood Culture - Preliminary NO GROWTH AFTER 24 HOURS Resulted 05/23/19 16:26 Urine,Clean Catch Urine Culture - Preliminary Gram Positive Cocci Resulted Bandar Pina MD May 25, 2019 18:35
--- NOTE | 2019-05-25 19:40 | NUR ---
NURSE NOTES: Received pt and report from KALEIGH Hester. Observed pt resting in bed with both eyes closed; arousable to voice. Pt is A/Ox1. director clinical data is in placed, IV site intact, asymptomatic, and patent. Bed is in the lowest position and locked. Call light within reach. No signs/symptoms of acute distress noted at this time. Will continue plan of care.
--- NOTE | 2019-05-25 19:50 | NUR ---
HAND-OFF: Report given to Svetlana Agarwal.Patient stable at time of hand off. Plan of care endorsed.
[2019-05-25 20:00] VITALS: BP 143/89
[2019-05-25] MEDS: Atorvastatin 20mg tab ORAL SCH (21:49)
[2019-05-25] MEDS: Carvedilol 12.5mg tab ORAL SCH (21:50)
--- NOTE | 2019-05-25 21:50 | Pulmonology Progress Note ---
Assessment/Plan Assessment/Plan Pulmonary Progress Note HPI Patient is a 69-year-old male with a history of Alzheimers Dementia, COPD, Hypertension, Pacemaker, CKD on HD, Previous CVA, chronic weakness, Diabetes, AO x1, presents with acute dyspnea, patient was at the convalescent house not taking his oxygen, he is oxygen dependent, has a history of COPD, he was hypoxic down to the low 80s, history is limited secondary to patient's dementia. Noted to have UTI in he ED, CXR clear. 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 Allergies: No Known Allergies Past Medical History: Alzheimers Dementia, COPD, Hypertension, Pacemaker, CKD on HD, Previous CVA, chronic weakness, Diabetes All Other Systems: limited Physical Exam Vital Signs Noted General Appearance: no apparent distress, alert Head: normocephalic, atraumatic Eyes: bilateral eye PERRL, bilateral eye EOMI ENT: uvula midline, moist mucus membranes Neck: supple, thyroid normal, supple/symmetrical/no masses Respiratory: lungs clear, no respiratory distress, no retraction, no accessory muscle use, other - on non rebreather Cardiovascular: normal HS, normal peripheral pulses, no gallop, no murmur, tachycardia, irregular Gastrointestinal: non tender, soft, no guarding, no rebound Musculoskeletal: normal inspection Neurologic: awake, oriented x1, responsive Skin: no rash, warm/dry, no edema Impression: Dyspnea COPD Hypoxia UTI (lower urinary tract infection) Alzheimer Dementa HTN Plan - O2 PRN - HHN - R/O DVT/PE - IV Antibiotics for UTI - Monitor labs - PPX Laboratory Tests Test 05/23/19 15:59 05/23/19 16:20 05/23/19 16:26 Arterial Blood pH 7.557 (7.350-7.450) Arterial Blood Partial Pressure CO2 29.4 mmHg (35.0-45.0) L Arterial Blood Partial Pressure O2 98.0 mmHg (75.0-100.0) Arterial Blood HCO3 25.6 mmol/L (22.0-26.0) Arterial Blood Oxygen Saturation 97.6 % (95-100) Arterial Blood Base Excess 3.7 (-2-2) H Ted Test Positive White Blood Count 10.6 K/UL (4.8-10.8) Red Blood Count 3.17 M/UL (4.70-6.10) L Hemoglobin 9.6 G/DL (14.2-18.0) L Hematocrit 29.8 % (42.0-52.0) L Mean Corpuscular Volume 94 FL (80-99) Mean Corpuscular Hemoglobin 30.2 PG (27.0-31.0) Mean Corpuscular Hemoglobin Concent 32.2 G/DL (32.0-36.0) Red Cell Distribution Width 15.1 % (11.6-14.8) H Platelet Count 260 K/UL (150-450) Mean Platelet Volume 6.0 FL (6.5-10.1) L Neutrophils (%) (Auto) 78.9 % (45.0-75.0) H Lymphocytes (%) (Auto) 12.4 % (20.0-45.0) L Monocytes (%) (Auto) 6.4 % (1.0-10.0) Eosinophils (%) (Auto) 1.6 % (0.0-3.0) Basophils (%) (Auto) 0.8 % (0.0-2.0) Prothrombin Time 64.9 SEC (9.30-11.50) H Prothrombin Time INR 6.8 (0.9-1.1) *H PTT > 150 SEC (23-33) *H Sodium Level 136 MMOL/L (136-145) Potassium Level 3.1 MMOL/L (3.5-5.1) L Chloride Level 98 MMOL/L (98-107) Carbon Dioxide Level 27 MMOL/L (21-32) Anion Gap 11 mmol/L (5-15) Blood Urea Nitrogen 16 mg/dL (7-18) Creatinine 4.9 MG/DL (0.55-1.30) H Estimate Glomerular Filtration Rate 14.3 mL/min (>60) Glucose Level 111 MG/DL (74-106) H Lactic Acid Level 1.90 mmol/L (0.4-2.0) Calcium Level 9.3 MG/DL (8.5-10.1) Phosphorus Level 2.1 MG/DL (2.5-4.9) L Magnesium Level 1.7 MG/DL (1.8-2.4) L Total Bilirubin 0.6 MG/DL (0.2-1.0) Aspartate Amino Transferase (AST) 21 U/L (15-37) Alanine Aminotransferase (ALT) 13 U/L (12-78) Alkaline Phosphatase 166 U/L (46-116) H Total Creatine Kinase 98 U/L (26-308) Creatine Kinase MB 3.0 NG/ML (0.0-3.6) Creatine Kinase MB Relative Index 3.0 Troponin I 0.003 ng/mL (0.000-0.056) Pro-B-Type Natriuretic Peptide 68920 pg/mL (0-125) H Total Protein 7.2 G/DL (6.4-8.2) Albumin 2.2 G/DL (3.4-5.0) L Globulin 5.0 g/dL Albumin/Globulin Ratio 0.4 (1.0-2.7) L Lipase 42 U/L (73-393) L Urine Color Brown Urine Appearance Turbid Urine pH 8 (4.5-8.0) Urine Specific [place] 1.015 (1.005-1.035) Urine Protein 4+ (NEGATIVE) H Urine Glucose (UA) 1+ (NEGATIVE) H Urine Ketones 1+ (NEGATIVE) H Urine Blood 5+ (NEGATIVE) H Urine Nitrite Negative (NEGATIVE) Urine Bilirubin Negative (NEGATIVE) Urine Urobilinogen Normal MG/DL (0.0-1.0) Urine Leukocyte Esterase 3+ (NEGATIVE) H Urine RBC Tntc /HPF (0 - 0) H Urine WBC Tntc /HPF (0 - 0) H Urine Squamous Epithelial Cells Many /LPF (NONE/OCC) H Urine Bacteria Many /HPF (NONE) H EKG: Atrial fibrillation, rate 110, QTc 544, no acute ST elevations, normal axis Chest X-Ray: no consolidation, no pneumothorax, no acute cardiopulmonary disease Subjective Allergies: Coded Allergies: No Known Allergies (Verified , 07/21/11) Objective Last 24 Hour Vital Signs Date Time Temp Pulse Resp B/P (MAP) Pulse Ox O2 Delivery O2 Flow Rate FiO2 05/25/19 20:00 98.3 117 19 143/89 (107) 99 05/25/19 20:00 2.0 05/25/19 19:22 95 18 100 Nasal Cannula 2.0 28 05/25/19 19:12 95 20 100 Nasal Cannula 2.0 28 05/25/19 19:00 126 126/80 05/25/19 16:00 96.9 123 20 126/80 (95) 99 05/25/19 16:00 126 05/25/19 16:00 2.0 05/25/19 15:14 61 18 99 Nasal Cannula 2.0 28 05/25/19 15:04 59 20 99 Nasal Cannula 2.0 28 05/25/19 12:00 97.8 97 20 114/56 (75) 100 05/25/19 12:00 122 05/25/19 12:00 2.0 05/25/19 11:04 72 20 99 Nasal Cannula 2.0 28 05/25/19 10:57 61 22 99 Nasal Cannula 2.0 28 05/25/19 09:03 135/74 05/25/19 09:02 118 135/74 05/25/19 09:02 135/74 05/25/19 09:00 126 05/25/19 09:00 Nasal Cannula 2.0 05/25/19 08:00 2.0 05/25/19 08:00 97.9 118 20 135/74 (94) 100 05/25/19 07:21 Room Air 21 05/25/19 07:21 Room Air 21 05/25/19 04:00 110 05/25/19 04:00 98.5 110 24 122/82 (95) 95 05/25/19 04:00 2.0 05/25/19 02:50 72 18 99 Nasal Cannula 2.0 28 05/25/19 02:40 62 20 98 Nasal Cannula 2.0 28 05/25/19 01:33 112 100/67 05/25/19 00:00 97.9 117 18 133/72 (92) 94 05/25/19 00:00 117 05/25/19 00:00 2.0 05/24/19 22:21 70 18 97 Room Air 21 05/24/19 22:10 68 18 97 Room Air 21 Intake and Output 05/24/19 05/25/19 18:59 06:59 Intake Total 0 ml Output Total 6000 ml Balance -6000 ml Intake Oral 0 ml Hemodialysis UF 6000 ml # Voids 1 # Bowel Movements 2 2 Microbiology Date/Time Source Procedure Growth Status 05/23/19 16:25 Blood Blood Culture - Preliminary NO GROWTH AFTER 24 HOURS Resulted 05/23/19 16:20 Blood Blood Culture - Preliminary NO GROWTH AFTER 24 HOURS Resulted 05/23/19 16:26 Urine,Clean Catch Urine Culture - Preliminary Gram Positive Cocci Resulted Laboratory Tests 05/25/19 08:55: White Blood Count 8.8, Red Blood Count 3.27L, Hemoglobin 9.7L, Hematocrit 31.5L , Mean Corpuscular Volume 96, Mean Corpuscular Hemoglobin 29.6, Mean Corpuscular Hemoglobin Concent 30.7L, Red Cell Distribution Width 15.9H, Platelet Count 199, Mean Platelet Volume 6.0L, Neutrophils (%) (Auto) 68.1, Lymphocytes (%) (Auto) 11.9L, Monocytes (%) (Auto) 13.7H, Eosinophils (%) (Auto ) 3.5H, Basophils (%) (Auto) 2.7H, Prothrombin Time 65.4H, Prothromb Time International Ratio 6.8*H, Sodium Level 139, Potassium Level 3.7, Chloride Level 99, Carbon Dioxide Level 32, Anion Gap 8, Blood Urea Nitrogen 17, Creatinine 5.5H, Estimat Glomerular Filtration Rate 12.5, Glucose Level 81, Uric Acid 5.7, Calcium Level 8.9, Phosphorus Level 3.6, Magnesium Level 2.4, Total Bilirubin 0.4, Aspartate Amino Transf (AST/SGOT) 21, Alanine Aminotransferase (ALT/SGPT) 11L, Alkaline Phosphatase 165H, Total Protein 6.8, Albumin 2.0L, Globulin 4.8, Albumin/Globulin Ratio 0.4L, Digoxin Level 0.7 Current Medications Medications (Trade) Dose Ordered Sig/Divya Route PRN Reason Start Time Stop Time Status Last Admin Dose Admin Acetaminophen (Tylenol) 650 mg Q4H PRN ORAL Mild Pain (Pain Scale 1-3) 05/23/19 18:15 06/22/19 18:14 Acetaminophen (Tylenol) 650 mg Q4H PRN ORAL fever (temp>100.5F) 05/23/19 18:15 06/22/19 18:14 Albuterol/ Ipratropium (Albuterol/ Ipratropium) 3 ml Q4HRT HHN 05/24/19 03:00 05/29/19 02:59 05/25/19 19:12 Albuterol/ Ipratropium (Albuterol/ Ipratropium) 3 ml Q6H PRN HHN Shortness of Breath 05/23/19 18:15 05/28/19 18:14 Aripiprazole (Abilify) 15 mg DAILY ORAL 05/24/19 09:00 06/23/19 08:59 05/25/19 09:02 Atorvastatin Calcium (Lipitor) 40 mg QHS ORAL 05/25/19 21:00 06/23/19 08:59 Carvedilol (Coreg) 12.5 mg EVERY 12 HOURS ORAL 05/25/19 21:00 06/23/19 20:59 Ceftriaxone Sodium 1 gm/ Dextrose 55 ml @ 110 mls/hr Q24H IVPB 05/24/19 18:00 05/31/19 17:59 05/25/19 17:04 Dextrose (Dextrose 50%) 25 ml Q30M PRN IV Hypoglycemia 05/23/19 18:15 06/22/19 18:14 Dextrose (Dextrose 50%) 50 ml Q30M PRN IV Hypoglycemia 05/23/19 18:15 06/22/19 18:14 Digoxin (Lanoxin) 0.125 mg DAILY ORAL 05/26/19 09:00 06/25/19 08:59 Diphenhydramine HCl (Benadryl) 25 mg Q6H PRN ORAL Itching/Pruritis 05/23/19 18:15 06/22/19 18:14 Docusate Sodium (Colace) 100 mg THREE TIMES A DAY ORAL 05/24/19 13:00 06/23/19 12:59 05/25/19 12:50 Hydromorphone HCl (Dilaudid) 0.5 mg Q6H PRN IVP Severe Pain (Pain Scale 7-10) 05/23/19 18:15 05/30/19 18:14 Isosorbide Mononitrate (Imdur) 60 mg DAILY ORAL 05/24/19 09:00 06/23/19 08:59 05/25/19 09:02 Lisinopril (Zestril) 10 mg DAILY ORAL 05/26/19 09:00 06/23/19 08:59 Lorazepam (Ativan) 1 mg Q4H PRN ORAL For Anxiety 05/23/19 18:15 05/30/19 18:14 05/25/19 15:38 Metoclopramide HCl (Reglan) 10 mg Q6H PRN IVP Nausea & Vomiting 05/23/19 18:15 06/22/19 18:14 Ondansetron HCl (Zofran) 4 mg Q6H PRN IVP Nausea & Vomiting 05/23/19 18:15 06/22/19 18:14 Pantoprazole (Protonix) 40 mg EVERY 12 HOURS ORAL 05/24/19 21:00 06/23/19 20:59 05/25/19 09:03 Prochlorperazine (Compazine) 10 mg Q6H PRN IVP Nausea & Vomiting 05/23/19 18:15 06/22/19 18:14 Sertraline HCl (Zoloft) 50 mg DAILY ORAL 05/24/19 09:00 06/23/19 08:59 05/25/19 09:01 Sevelamer Carbonate (Renvela) 1,600 mg THREE TIMES A DAY ORAL 05/24/19 13:00 06/23/19 08:59 05/25/19 17:03 Temazepam (Restoril) 15 mg HSPRN PRN ORAL Insomnia 05/23/19 18:15 05/30/19 18:14 Vitamin B Complex/ Vit C/Folic Acid (Nephrovite) 1 tab DAILY ORAL 05/24/19 09:00 06/23/19 08:59 05/25/19 09:02 Navneet Bond MD May 25, 2019 21:50
--- NOTE | 2019-05-25 23:30 | Consultation ---
DATE OF CONSULTATION: 05/25/2019 CARDIOLOGY CONSULTATION CONSULTING PHYSICIAN: Bandar Pina M.D. REFERRING PHYSICIAN: Maurizio Haq M.D. REASON FOR CONSULTATION: Management of wide complex tachycardia and atrial fibrillation. HISTORY OF PRESENT ILLNESS: The patient is a 69-year-old gentleman with history of hypertension and chronic atrial fibrillation as well as end-stage renal disease, on hemodialysis, diabetes, COPD, and anemia, as well as heart failure with preserved ejection fraction, presented with acute respiratory failure from fdc. The patient was also encephalopathic and was refusing to use oxygen. The patient was also found to have urinary tract infection and was started on antibiotic on admission. The patient has already been on anticoagulation with Coumadin as well. He has multiple runs of wide complex tachycardia lasting up to 20 beats. Cardiac electrophysiology consultation was obtained for further evaluation. REVIEW OF SYSTEMS: Negative other than what was mentioned in the history of present illness. PAST MEDICAL HISTORY: As mentioned above. MEDICATION: Per reconciliation. FAMILY HISTORY: Noncontributory. SOCIAL HISTORY: [facility] resident. Does not smoke or drink alcohol. PHYSICAL EXAMINATION: VITAL SIGNS: Show blood pressure of 126/80, pulse was as high as 126, respirations 18, and temperature is 97. HEAD AND NECK: Showed no JVD. LUNGS: Decreased breath sounds. CARDIOVASCULAR: Shows irregular irregular S1 and S2 with no gallop or murmur. The dialysis access is in the left chest. ABDOMEN: Soft. EXTREMITIES: A 1+ pitting edema. LABORATORY AND DIAGNOSTIC DATA: His EKG shows atrial fibrillation with a rapid ventricular response of 104 beats per minute. His telemetry strip showed burst of atrial fibrillation with rapid ventricular response, heart rate up to 150s, as well as wide complex tachycardia with rate of up to 170 beats per minute, which was irregular. His echocardiogram showed ejection fraction of 40 to 45 percent. His labs show white count of 8.8, hemoglobin 9.7, hematocrit of 31.5, and platelet count of 199,000. Sodium 139, potassium 3.7, BUN of 17, creatinine 5.5, and glucose of 81. His BNP is 30,000. Troponins are negative x3. ASSESSMENT AND PLAN: 1. Wide complex tachycardia. This is likely due to atrial fibrillation with rapid ventricular response and aberrant conduction. His rhythm is very irregular again suggestive of atrial fibrillation with aberrancy during tachycardia. His echocardiogram showed EF of 40 to 45 percent. At this time, we will treat the patient medically. 2. Atrial fibrillation with rapid ventricular response. I would maximize the beta-destiny. Increase the Coreg to 12.5 mg b.i.d. I would discontinue Imdur to allow higher dose of beta-destiny. I may need to decrease the dose of lisinopril to give him a higher dose of beta-destiny for better rate control response of his ventricle. The patient is also on digoxin. Digoxin level is 0.7 and I will put him on digoxin 0.125 mg daily and repeat at this level. The patient is also on Coumadin and his INR initially was 7.5, and now it is 6.8, and he is on Coumadin per pharmacy. 3. Hypertension. Continue current medical therapy. 4. Congestive heart failure with EF of 40 to 45 percent, could be due to atrial fibrillation with rapid ventricular response and myopathy. Again, maximize AV hawk destiny as well as digoxin. 5. COPD. 6. UTI. On antibiotics. 7. End-stage renal disease, on hemodialysis. Thank you very much for allowing me to participate in the care of this patient. Please do not hesitate to contact me for any questions regarding my evaluation. Bandar Pina M.D. DR: CHANTEL JOB#: [id number] CC:
[2019-05-26] VITALS: BP 112/73
[2019-05-26] MEDS: Albuterol/Ipratropium 3ml neb HHN SCH ×6 (02:15→23:28)
[2019-05-26 04:00] VITALS: BP 126/65
[2019-05-26 07:14] LABS: BASOPHILS % (AUTO) 0.6 % (0.0-2.0); EOSINOPHILS % (AUTO) 4.3 % (0.0-3.0); LYMPHOCYTES % (AUTO) 12.9 % (20.0-45.0); MEAN CORPUSCULAR VOLUME 97 FL (80-99); MONOCYTES % (AUTO) 7.8 % (1.0-10.0); NEUTROPHILS % (AUTO) 74.4 % (45.0-75.0); PLATELET COUNT 190 K/UL (150-450); RED BLOOD COUNT 3.41 M/UL (4.70-6.10); RED CELL DISTRIBUTION WIDTH 15.1 % (11.6-14.8); WHITE BLOOD COUNT 9.2 K/UL (4.8-10.8)
[2019-05-26] MEDS: Carvedilol 12.5mg tab ORAL SCH ×2 (07:21→21:19)
[2019-05-26] MEDS: Imdur 30mg tab ORAL SCH (07:21)
--- NOTE | 2019-05-26 07:37 | NUR ---
NURSE NOTES: Report received from KALEIGH Agarwal. Pt shows no signs of distress, A+Ox1/2, denies pain/SOB. Respirations are even and unlabored on 2 L NC. IV site is patent and intact and saline locked. Bed is at lowest position, brakes engaged, siderails x2, bed alarm on, and call light within reach. Pt is in stable condition at this time; will continue to monitor. Pt to have dialysis today. B/P meds on hold.
[2019-05-26 07:45] LABS: ANION GAP 10 mmol/L (5-15); BLOOD UREA NITROGEN 22 mg/dL (7-18); CALCIUM 8.5 MG/DL (8.5-10.1); CARBON DIOXIDE 29 MMOL/L (21-32); CHLORIDE 101 MMOL/L (98-107); CREATININE 6.8 MG/DL (0.55-1.30); POTASSIUM 3.9 MMOL/L (3.5-5.1); SODIUM 140 MMOL/L (136-145)
--- NOTE | 2019-05-26 07:53 | NUR ---
HAND-OFF: Report given to KALEIGH Hess.
[2019-05-26 08:00] VITALS: BP 124/74
[2019-05-26] MEDS: Docusate 100mg cap ORAL SCH ×3 (08:15→17:19)
[2019-05-26] MEDS: Lisinopril 10mg tab ORAL SCH (08:16)
[2019-05-26] MEDS: Nephrovite tab (Rena-Vite) ORAL SCH (08:21)
[2019-05-26] MEDS: Sertraline 50mg tab ORAL SCH (08:31)
[2019-05-26] MEDS ORDERED: Digoxin 0.125mg tab ORAL SCH (09:00)
--- NOTE | 2019-05-26 09:34 | NUR ---
NURSE NOTES: Pt is positive for MRSA nares. Left message with Dr. Saravia; awaiting response.
--- NOTE | 2019-05-26 09:55 | NUR ---
NURSE NOTES: Dr. Saravia ordered contact isolation and bactroban BID x 5 days. Orders noted and carried out.
--- NOTE | 2019-05-26 10:02 | NUR ---
Social Work This Sw received a consult due to a home safety evaluation. Patient is from [facility]. This SW spoke with medical records who explains patient was his own decision maker (or Sister, Gerson Rush: [phone] or partner, Ryan Kaba: [phone]). Patient is currently receiving dialysis and appears to show some slight confusion. This sW made attempts to contact sister and partner (no answer on both numbers, no voicemail available). Patient is longterm resident at SNF with plans to return upon discharge. SW to follow further, as needed. This Sw unable to observe any current signs of any neglect or abuse at this time.
[2019-05-26 12:00] VITALS: BP 107/64
--- NOTE | 2019-05-26 12:19 | Nephrology Progress Note ---
Assessment/Plan Problem List: (1) ESRF (end stage renal failure) (2) Cardiomyopathy (3) COPD (chronic obstructive pulmonary disease) (4) Anemia Assessment presents with SOB: CHF vs COPD Exacerbation ESRD CHF with previous Echo showing Ej Fx 40 % h/o At fib DM HTN Anemia COPD recent ear infection Plan HD done 05/24 next - currently in process when patient seen Optimize cardiac condition BP and BS check and control Discussed with Dr Chucky Hayes and Dig per orders Subjective ROS Limited/Unobtainable: No Constitutional: Reports: malaise Objective Objective Last 24 Hour Vital Signs Date Time Temp Pulse Resp B/P (MAP) Pulse Ox O2 Delivery O2 Flow Rate FiO2 05/26/19 11:06 119 Nasal Cannula 2.0 28 05/26/19 11:06 Nasal Cannula 2.0 28 05/26/19 08:33 118 05/26/19 08:16 124/74 05/26/19 08:00 96.8 118 20 124/74 (91) 100 05/26/19 08:00 2.0 05/26/19 06:57 119 Nasal Cannula 2.0 28 05/26/19 06:57 Nasal Cannula 2.0 28 05/26/19 04:00 2.0 05/26/19 04:00 97.9 103 19 126/65 (85) 100 05/26/19 03:41 103 05/26/19 02:25 92 18 100 Nasal Cannula 2.0 28 05/26/19 02:15 91 20 100 Nasal Cannula 2.0 28 05/26/19 00:00 98.0 105 20 112/73 (86) 99 05/25/19 23:24 110 05/25/19 23:10 99 18 100 Nasal Cannula 2.0 28 05/25/19 23:00 98 20 100 Nasal Cannula 2.0 28 05/25/19 21:50 115 148/83 05/25/19 21:00 Nasal Cannula 2.0 05/25/19 20:00 98.3 117 19 143/89 (107) 99 05/25/19 20:00 110 05/25/19 20:00 2.0 05/25/19 19:22 95 18 100 Nasal Cannula 2.0 28 05/25/19 19:12 95 20 100 Nasal Cannula 2.0 28 05/25/19 19:00 126 126/80 05/25/19 16:00 96.9 123 20 126/80 (95) 99 05/25/19 16:00 126 05/25/19 16:00 2.0 05/25/19 15:14 61 18 99 Nasal Cannula 2.0 28 05/25/19 15:04 59 20 99 Nasal Cannula 2.0 28 Intake and Output 05/25/19 05/26/19 19:00 07:00 Intake Total 250 ml Balance 250 ml Intake Oral 250 ml # Voids 2 # Bowel Movements 2 3 Laboratory Tests 05/26/19 06:05: White Blood Count 9.2, Red Blood Count 3.41L, Hemoglobin 10.0L, Hematocrit 33.0L , Mean Corpuscular Volume 97, Mean Corpuscular Hemoglobin 29.5, Mean Corpuscular Hemoglobin Concent 30.5L, Red Cell Distribution Width 15.1H, Platelet Count 190, Mean Platelet Volume 5.8L, Neutrophils (%) (Auto) 74.4, Lymphocytes (%) (Auto) 12.9L, Monocytes (%) (Auto) 7.8, Eosinophils (%) (Auto) 4.3H, Basophils (%) (Auto) 0.6, Sodium Level 140, Potassium Level 3.9, Chloride Level 101, Carbon Dioxide Level 29, Anion Gap 10, Blood Urea Nitrogen 22H, Creatinine 6.8H, Estimat Glomerular Filtration Rate 9.8, Glucose Level 98, Calcium Level 8.5, Pro-B-Type Natriuretic Peptide 77921M, Digoxin Level 0.5 Height (Feet): 5 Height (Inches): 10.00 Weight (Pounds): 191 General Appearance: no apparent distress Objective no change Francisco Javier Abraham MD May 26, 2019 12:19
--- NOTE | 2019-05-26 13:46 | General Progress Note ---
Assessment/Plan Status: stable Assessment/Plan: 69 year oldrola a PMH of a fib on AC, ESRD on HD, anemia, htn, DM, COPD, HFPEF presented for acute hypoxemic respiratory failure # Acute Hypoxic Repiratory Failure likely 2/2 chf exacerbation - cardiac medications - echo with preserved EF - HD for fluid removal per Dr. Chen. HD 05/26 - RT - breathing treatments - Pulm Consult appreciated # Supratherapeutic INR - hold coumadin - vit k +/- FFP if patient bleeds - daily INR needed - Pharmacy to dose. # Hyponatremia likely hypervolemic from chf - HD - CTM # ESRD - HD by Nephrology # Afib with episodes of WCT and AF with aberrancy, Dr. Stone consultation appreciated. - cardiac meds being adjusted. - hold coumadin # Iron deficiency anemia - iron replacement # Dysphagia with aspiration risk - Discussed with ST - Dietary adjustment - Daily ST and adjustments as needed # Full Code # Dispo- SNF (prior resident) Subjective ROS Limited/Unobtainable: Yes Allergies: Coded Allergies: No Known Allergies (Verified , 07/21/11) Subjective Reports diarrhea Objective Last 24 Hour Vital Signs Date Time Temp Pulse Resp B/P (MAP) Pulse Ox O2 Delivery O2 Flow Rate FiO2 05/26/19 12:00 97.1 122 20 107/64 (78) 96 05/26/19 12:00 2.0 05/26/19 12:00 127 05/26/19 11:06 119 Nasal Cannula 2.0 28 05/26/19 11:06 Nasal Cannula 2.0 28 05/26/19 09:00 Nasal Cannula 2.0 05/26/19 08:33 118 05/26/19 08:16 124/74 05/26/19 08:00 96.8 118 20 124/74 (91) 100 05/26/19 08:00 2.0 05/26/19 08:00 112 05/26/19 06:57 119 Nasal Cannula 2.0 28 05/26/19 06:57 Nasal Cannula 2.0 28 05/26/19 04:00 2.0 05/26/19 04:00 97.9 103 19 126/65 (85) 100 05/26/19 03:41 103 05/26/19 02:25 92 18 100 Nasal Cannula 2.0 28 05/26/19 02:15 91 20 100 Nasal Cannula 2.0 28 05/26/19 00:00 98.0 105 20 112/73 (86) 99 05/25/19 23:24 110 05/25/19 23:10 99 18 100 Nasal Cannula 2.0 28 05/25/19 23:00 98 20 100 Nasal Cannula 2.0 28 05/25/19 21:50 115 148/83 05/25/19 21:00 Nasal Cannula 2.0 05/25/19 20:00 98.3 117 19 143/89 (107) 99 05/25/19 20:00 110 05/25/19 20:00 2.0 05/25/19 19:22 95 18 100 Nasal Cannula 2.0 28 05/25/19 19:12 95 20 100 Nasal Cannula 2.0 28 05/25/19 19:00 126 126/80 05/25/19 16:00 96.9 123 20 126/80 (95) 99 05/25/19 16:00 126 05/25/19 16:00 2.0 05/25/19 15:14 61 18 99 Nasal Cannula 2.0 28 05/25/19 15:04 59 20 99 Nasal Cannula 2.0 28 Intake and Output 05/25/19 05/26/19 19:00 07:00 Intake Total 250 ml Balance 250 ml Intake Oral 250 ml # Voids 2 # Bowel Movements 2 3 Laboratory Tests 05/26/19 06:05: White Blood Count 9.2, Red Blood Count 3.41L, Hemoglobin 10.0L, Hematocrit 33.0L , Mean Corpuscular Volume 97, Mean Corpuscular Hemoglobin 29.5, Mean Corpuscular Hemoglobin Concent 30.5L, Red Cell Distribution Width 15.1H, Platelet Count 190, Mean Platelet Volume 5.8L, Neutrophils (%) (Auto) 74.4, Lymphocytes (%) (Auto) 12.9L, Monocytes (%) (Auto) 7.8, Eosinophils (%) (Auto) 4.3H, Basophils (%) (Auto) 0.6, Sodium Level 140, Potassium Level 3.9, Chloride Level 101, Carbon Dioxide Level 29, Anion Gap 10, Blood Urea Nitrogen 22H, Creatinine 6.8H, Estimat Glomerular Filtration Rate 9.8, Glucose Level 98, Calcium Level 8.5, Pro-B-Type Natriuretic Peptide [id number], Digoxin Level 0.5 Height (Feet): 5 Height (Inches): 10.00 Weight (Pounds): 191 General Appearance: WD/WN EENT: PERRL/EOMI Neck: non-tender Cardiovascular: normal peripheral pulses, normal rate Respiratory/Chest: lungs clear Abdomen: non tender, soft Extremities: normal range of motion Neurologic: operations vice president II-XII grossly normal Skin: normal pigmentation Riccardo Saravia MD May 26, 2019 13:46
[2019-05-26] MEDS: LORazepam 1mg tab ORAL PRN (14:21)
--- NOTE | 2019-05-26 14:57 | Cardiac Electrophysiology PN ---
Assessment/Plan Assessment/Plan 1. Wide complex tachycardia. This is likely due to atrial fibrillation with rapid ventricular response and aberrant conduction. His rhythm is very irregular again suggestive of atrial fibrillation with aberrancy during tachycardia. His echocardiogram showed EF of 40 to 45 percent. At this time, we will treat the patient medically. 2. Atrial fibrillation with rapid ventricular response.On Coreg to 12.5 mg bid, Lisinopril 10 daily and digoxin 0.125 mg daily and repeat at this level. The patient is also on Coumadin and his INR initially was 7.5, and now it is 6.8, and he is on Coumadin per pharmacy. 3. Hypertension. Continue current medical therapy. 4. Congestive heart failure with EF of 40 to 45 percent, could be due to atrial fibrillation with rapid ventricular response and tachy induced myopathy. On Dig, Coreg, Lisinopril and HD 5. COPD. 6. UTI. On antibiotics. 7. End-stage renal disease, on hemodialysis. SIN RN Subjective Subjective In fib at times up to 150s when agitated on tele.Had HD today Objective Last 24 Hour Vital Signs Date Time Temp Pulse Resp B/P (MAP) Pulse Ox O2 Delivery O2 Flow Rate FiO2 05/26/19 12:00 97.1 122 20 107/64 (78) 96 05/26/19 12:00 2.0 05/26/19 12:00 127 05/26/19 11:06 119 Nasal Cannula 2.0 28 05/26/19 11:06 Nasal Cannula 2.0 28 05/26/19 09:00 Nasal Cannula 2.0 05/26/19 08:33 118 05/26/19 08:16 124/74 05/26/19 08:00 96.8 118 20 124/74 (91) 100 05/26/19 08:00 2.0 05/26/19 08:00 112 05/26/19 06:57 119 Nasal Cannula 2.0 28 05/26/19 06:57 Nasal Cannula 2.0 28 05/26/19 04:00 2.0 05/26/19 04:00 97.9 103 19 126/65 (85) 100 05/26/19 03:41 103 05/26/19 02:25 92 18 100 Nasal Cannula 2.0 28 05/26/19 02:15 91 20 100 Nasal Cannula 2.0 28 05/26/19 00:00 98.0 105 20 112/73 (86) 99 05/25/19 23:24 110 05/25/19 23:10 99 18 100 Nasal Cannula 2.0 28 05/25/19 23:00 98 20 100 Nasal Cannula 2.0 28 05/25/19 21:50 115 148/83 05/25/19 21:00 Nasal Cannula 2.0 05/25/19 20:00 98.3 117 19 143/89 (107) 99 05/25/19 20:00 110 05/25/19 20:00 2.0 05/25/19 19:22 95 18 100 Nasal Cannula 2.0 28 05/25/19 19:12 95 20 100 Nasal Cannula 2.0 28 05/25/19 19:00 126 126/80 05/25/19 16:00 96.9 123 20 126/80 (95) 99 05/25/19 16:00 126 05/25/19 16:00 2.0 05/25/19 15:14 61 18 99 Nasal Cannula 2.0 28 05/25/19 15:04 59 20 99 Nasal Cannula 2.0 28 Intake and Output 05/25/19 05/26/19 19:00 07:00 Intake Total 250 ml Balance 250 ml Intake Oral 250 ml # Voids 2 # Bowel Movements 2 3 Laboratory Tests Test 05/26/19 06:05 White Blood Count 9.2 K/UL (4.8-10.8) Red Blood Count 3.41 M/UL (4.70-6.10) L Hemoglobin 10.0 G/DL (14.2-18.0) L Hematocrit 33.0 % (42.0-52.0) L Mean Corpuscular Volume 97 FL (80-99) Mean Corpuscular Hemoglobin 29.5 PG (27.0-31.0) Mean Corpuscular Hemoglobin Concent 30.5 G/DL (32.0-36.0) L Red Cell Distribution Width 15.1 % (11.6-14.8) H Platelet Count 190 K/UL (150-450) Mean Platelet Volume 5.8 FL (6.5-10.1) L Neutrophils (%) (Auto) 74.4 % (45.0-75.0) Lymphocytes (%) (Auto) 12.9 % (20.0-45.0) L Monocytes (%) (Auto) 7.8 % (1.0-10.0) Eosinophils (%) (Auto) 4.3 % (0.0-3.0) H Basophils (%) (Auto) 0.6 % (0.0-2.0) Sodium Level 140 MMOL/L (136-145) Potassium Level 3.9 MMOL/L (3.5-5.1) Chloride Level 101 MMOL/L (98-107) Carbon Dioxide Level 29 MMOL/L (21-32) Anion Gap 10 mmol/L (5-15) Blood Urea Nitrogen 22 mg/dL (7-18) H Creatinine 6.8 MG/DL (0.55-1.30) H Estimat Glomerular Filtration Rate 9.8 mL/min (>60) Glucose Level 98 MG/DL (74-106) Calcium Level 8.5 MG/DL (8.5-10.1) Pro-B-Type Natriuretic Peptide 67177 pg/mL (0-125) H Digoxin Level 0.5 NG/ML (0.5-2.0) Microbiology Date/Time Source Procedure Growth Status 05/23/19 16:25 Blood Blood Culture - Preliminary NO GROWTH AFTER 48 HOURS Resulted 05/23/19 16:20 Blood Blood Culture - Preliminary NO GROWTH AFTER 48 HOURS Resulted 05/23/19 16:26 Urine,Clean Catch Urine Culture - Final Enterococcus Faecalis Complete Objective HEAD AND NECK: Showed no JVD. LUNGS: Decreased breath sounds. CARDIOVASCULAR: Shows irregular irregular S1 and S2 with no gallop or murmur. The dialysis access is in the left chest. ABDOMEN: Soft. EXTREMITIES: 1+ pitting edema. Bandar Pina MD May 26, 2019 14:57
--- NOTE | 2019-05-26 15:09 | NUR ---
NURSE NOTES:WOUND CARE NOTES: Pt observed by staff to have developed two partial thickness pressure injuries sacral cleft (proximal)(L)0.4cm x (W)0.3cm. Base of wound moist and viable Non-blanching erythema without induration periwound. (distal at perianal ) (L)1.7cm x (W)0.5cm. Base of wound [id number]. Borders macerated. Non-Blanching erythema without induration periwound. Non-blanching erythema with fluctuance noted to L heel . Non-blanching erythema with fluctuance noted to R heel. L 4th metatarsal is necrotic but dry . Recommendations: Please follow-up with PCP regarding Necrotic L 4th metatarsal. Apply Moisture Barrier Paste to Buttocks. Cover with Optifoam drsg . Change every 3 days and prn. Apply Cavilon Skin Barrier to both heels. Cover each heel with Optifoam drsg.Change every 7 days and PRN. Apply Betadine to L 4th metatarsal daily. Reposition at least every 2 hours or as tolerated. Off-load heels with pillow.
--- NOTE | 2019-05-26 15:49 | NUR ---
RD ASSESSMENT & RECOMMENDATIONS SEE CARE ACTIVITY FOR COMPLETE ASSESSMENT DAILY ESTIMATED NEEDS: Needs based on ESRD on HD, obese 78kg adj 25-30 kcals/kg [id number] total kcals 1.2-1.8 g protein/kg 94-140 g total protein Fluid per MD, on HD mL/kg total fluid mLs NUTRITION DIAGNOSIS: * Increased kcal and protein needs r/t renal dysfunction, wound healing as evidenced by pt w/ ESRD on HD, pt admitted w/ two partial thickness pressure injuries sacral cleft, currently w/ poor PO * Swallowing difficulty R/T dysphagia as evidenced by MBSS, w/ rec for liquify pureed, NTL CURRENT DIET:RENAL, CCHO LOW (liquify pureed, NTL) PO DIET RECOMMENDATIONS: RENAL, CCHO MED/ texture per MERRY GO ROUND OPERATOR ADDITIONAL RECOMMENDATIONS: 1) Obtain a calibrated bed scale wt, dry wt post HD 2) Wound healing: Add Nephrovite x 1, ZnSO4 220mg QD x 10 days : Juan 1pkt BID 3) Nepro TID w/ meals while on liquify pureed, NTL texture diet 4) Consider NISS: h/o DM -
[2019-05-26 16:00] VITALS: BP 133/90
--- NOTE | 2019-05-26 17:01 | Pulmonology Progress Note ---
Assessment/Plan Assessment/Plan Pulmonary Progress Note HPI Patient is a 69-year-old male with a history of Alzheimers Dementia, COPD, CHF with EF 25%, Hypertension, Pacemaker, CKD on HD, Previous CVA, chronic weakness , Diabetes, AO x1, presents with acute dyspnea, patient was at the convalescent house not taking his oxygen, he is oxygen dependent, has a history of COPD, he was hypoxic down to the low 80s, history is limited secondary to patient's dementia. Noted to have UTI in he ED, CXR clear. 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 Allergies: No Known Allergies Past Medical History: Alzheimers Dementia, COPD, Hypertension, CHF with EF 25% , Pacemaker, CKD on HD, Previous CVA, chronic weakness, Diabetes All Other Systems: limited Physical Exam Vital Signs Noted General Appearance: no apparent distress, alert Head: normocephalic, atraumatic Eyes: bilateral eye PERRL, bilateral eye EOMI ENT: uvula midline, moist mucus membranes Neck: supple, thyroid normal, supple/symmetrical/no masses Respiratory: lungs clear, no respiratory distress, no retraction, no accessory muscle use, other - on non rebreather Cardiovascular: normal HS, normal peripheral pulses, no gallop, no murmur, tachycardia, irregular Gastrointestinal: non tender, soft, no guarding, no rebound Musculoskeletal: normal inspection Neurologic: awake, oriented x1, responsive Skin: no rash, warm/dry, no edema Impression: Dyspnea CHF with EF 25% HTN COPD Hypoxia UTI (lower urinary tract infection) Alzheimer Dementa Plan - O2 PRN - HHN - R/O DVT/PE - IV Antibiotics for UTI - Monitor labs - PPX Laboratory Tests Noted EKG: Atrial fibrillation, rate 110, QTc 544, no acute ST elevations, normal axis Chest X-Ray: no consolidation, no pneumothorax, no acute cardiopulmonary disease Subjective ROS Limited/Unobtainable: No Allergies: Coded Allergies: No Known Allergies (Verified , 07/21/11) Objective Last 24 Hour Vital Signs Date Time Temp Pulse Resp B/P (MAP) Pulse Ox O2 Delivery O2 Flow Rate FiO2 05/26/19 16:00 2.0 05/26/19 16:00 97.5 110 20 133/90 (104) 93 05/26/19 15:08 60 18 100 Nasal Cannula 2.0 28 05/26/19 14:55 65 16 97 Nasal Cannula 2.0 28 05/26/19 12:00 97.1 122 20 107/64 (78) 96 05/26/19 12:00 2.0 05/26/19 12:00 127 05/26/19 11:06 119 Nasal Cannula 2.0 28 05/26/19 11:06 Nasal Cannula 2.0 28 05/26/19 09:00 Nasal Cannula 2.0 05/26/19 08:33 118 05/26/19 08:16 124/74 05/26/19 08:00 96.8 118 20 124/74 (91) 100 05/26/19 08:00 2.0 05/26/19 08:00 112 05/26/19 06:57 119 Nasal Cannula 2.0 28 05/26/19 06:57 Nasal Cannula 2.0 28 05/26/19 04:00 2.0 05/26/19 04:00 97.9 103 19 126/65 (85) 100 05/26/19 03:41 103 05/26/19 02:25 92 18 100 Nasal Cannula 2.0 05/26/19 02:15 91 20 100 Nasal Cannula 2.0 28 05/26/19 00:00 98.0 105 20 112/73 (86) 99 05/25/19 23:24 110 05/25/19 23:10 99 18 100 Nasal Cannula 2.0 28 05/25/19 23:00 98 20 100 Nasal Cannula 2.0 28 05/25/19 21:50 115 148/83 05/25/19 21:00 Nasal Cannula 2.0 05/25/19 20:00 98.3 117 19 143/89 (107) 99 05/25/19 20:00 110 05/25/19 20:00 2.0 05/25/19 19:22 95 18 100 Nasal Cannula 2.0 28 05/25/19 19:12 95 20 100 Nasal Cannula 2.0 28 05/25/19 19:00 126 126/80 Intake and Output 05/25/19 05/26/19 19:00 07:00 Intake Total 250 ml Balance 250 ml Intake Oral 250 ml # Voids 2 # Bowel Movements 2 3 Laboratory Tests 05/26/19 06:05: White Blood Count 9.2, Red Blood Count 3.41L, Hemoglobin 10.0L, Hematocrit 33.0L , Mean Corpuscular Volume 97, Mean Corpuscular Hemoglobin 29.5, Mean Corpuscular Hemoglobin Concent 30.5L, Red Cell Distribution Width 15.1H, Platelet Count 190, Mean Platelet Volume 5.8L, Neutrophils (%) (Auto) 74.4, Lymphocytes (%) (Auto) 12.9L, Monocytes (%) (Auto) 7.8, Eosinophils (%) (Auto) 4.3H, Basophils (%) (Auto) 0.6, Sodium Level 140, Potassium Level 3.9, Chloride Level 101, Carbon Dioxide Level 29, Anion Gap 10, Blood Urea Nitrogen 22H, Creatinine 6.8H, Estimat Glomerular Filtration Rate 9.8, Glucose Level 98, Calcium Level 8.5, Pro-B-Type Natriuretic Peptide 58271O, Digoxin Level 0.5 Current Medications Medications (Trade) Dose Ordered Sig/Divya Route PRN Reason Start Time Stop Time Status Last Admin Dose Admin Acetaminophen (Tylenol) 650 mg Q4H PRN ORAL Mild Pain (Pain Scale 1-3) 05/23/19 18:15 06/22/19 18:14 Acetaminophen (Tylenol) 650 mg Q4H PRN ORAL fever (temp>100.5F) 05/23/19 18:15 06/22/19 18:14 Albuterol/ Ipratropium (Albuterol/ Ipratropium) 3 ml Q4HRT HHN 05/24/19 03:00 05/29/19 02:59 05/26/19 15:04 Albuterol/ Ipratropium (Albuterol/ Ipratropium) 3 ml Q6H PRN HHN Shortness of Breath 05/23/19 18:15 05/28/19 18:14 Aripiprazole (Abilify) 15 mg DAILY ORAL 05/24/19 09:00 06/23/19 08:59 05/25/19 09:02 Atorvastatin Calcium (Lipitor) 40 mg QHS ORAL 05/25/19 21:00 06/23/19 08:59 05/25/19 21:49 Carvedilol (Coreg) 12.5 mg EVERY 12 HOURS ORAL 05/25/19 21:00 06/23/19 20:59 05/25/19 21:50 Ceftriaxone Sodium 1 gm/ Dextrose 55 ml @ 110 mls/hr Q24H IVPB 8/11/19 18:00 05/31/19 17:59 05/25/19 17:04 Dextrose (Dextrose 50%) 25 ml Q30M PRN IV Hypoglycemia 05/23/19 18:15 06/22/19 18:14 Dextrose (Dextrose 50%) 50 ml Q30M PRN IV Hypoglycemia 05/23/19 18:15 06/22/19 18:14 Digoxin (Lanoxin) 0.125 mg DAILY ORAL 05/26/19 09:00 06/25/19 08:59 05/26/19 08:33 Diphenhydramine HCl (Benadryl) 25 mg Q6H PRN ORAL Itching/Pruritis 05/23/19 18:15 06/22/19 18:14 Docusate Sodium (Colace) 100 mg THREE TIMES A DAY ORAL 05/24/19 13:00 06/23/19 12:59 05/25/19 12:50 Hydromorphone HCl (Dilaudid) 0.5 mg Q6H PRN IVP Severe Pain (Pain Scale 7-10) 05/23/19 18:15 05/30/19 18:14 Isosorbide Mononitrate (Imdur) 60 mg DAILY ORAL 05/24/19 09:00 06/23/19 08:59 05/25/19 09:02 Lisinopril (Zestril) 10 mg DAILY ORAL 05/26/19 09:00 06/23/19 08:59 Lorazepam (Ativan) 1 mg Q4H PRN ORAL For Anxiety 05/23/19 18:15 05/30/19 18:14 05/26/19 14:21 Metoclopramide HCl (Reglan) 10 mg Q6H PRN IVP Nausea & Vomiting 05/23/19 18:15 06/22/19 18:14 Mupirocin (Bactroban Oint) 1 applic BID TOPIC 05/26/19 11:00 05/30/19 18:01 05/26/19 12:10 Ondansetron HCl (Zofran) 4 mg Q6H PRN IVP Nausea & Vomiting 05/23/19 18:15 06/22/19 18:14 Pantoprazole (Protonix) 40 mg EVERY 12 HOURS ORAL 05/24/19 21:00 06/23/19 20:59 05/26/19 08:32 Prochlorperazine (Compazine) 10 mg Q6H PRN IVP Nausea & Vomiting 05/23/19 18:15 06/22/19 18:14 Sertraline HCl (Zoloft) 50 mg DAILY ORAL 05/24/19 09:00 06/23/19 08:59 05/26/19 08:31 Sevelamer Carbonate (Renvela) 1,600 mg THREE TIMES A DAY ORAL 05/24/19 13:00 06/23/19 08:59 05/26/19 12:10 Temazepam (Restoril) 15 mg HSPRN PRN ORAL Insomnia 05/23/19 18:15 05/30/19 18:14 05/25/19 23:25 Vitamin B Complex/ Vit C/Folic Acid (Nephrovite) 1 tab DAILY ORAL 05/24/19 09:00 06/23/19 08:59 05/26/19 08:21 Navneet Bond MD May 26, 2019 17:01
[2019-05-26] MEDS: cefTRIAXone 1gm/D5W 55ml IVPB SCH ×2 (17:22)
--- NOTE | 2019-05-26 19:31 | NUR ---
HAND-OFF: Report given to KALEIGH Agarwal. Pt is in stable condition. Plan of care endorsed.
--- NOTE | 2019-05-26 19:42 | NUR ---
NURSE NOTES: Received pt and report from KALEIGH Hess. Observed pt resting in bed with both eyes closed; arousable to voice. Pt is A/Ox1; confused. model maker fiberglass is in placed, IV site intact, asymptomatic, and patent. Bed is in the lowest position and locked. Call light within reach. No signs/symptoms of acute distress noted at this time. Will continue plan of care.
[2019-05-26 20:00] VITALS: BP 130/74
[2019-05-26] MEDS: Atorvastatin 20mg tab ORAL SCH (21:19)
[2019-05-27] VITALS: BP 134/66
[2019-05-27] MEDS: LORazepam 1mg tab ORAL PRN (01:42)
--- NOTE | 2019-05-27 01:47 | NUR ---
NURSE NOTES: Pt keeps taking off hospital gown, pulling off pick remover, and attempted to pull on Permacath multiple times through out night. Administered Ativan 1mg PO for agitation.
[2019-05-27] MEDS: Albuterol/Ipratropium 3ml neb HHN SCH ×6 (02:37→23:10)
[2019-05-27 04:00] VITALS: BP 143/83
[2019-05-27 07:22] LABS: BASOPHILS % (AUTO) 0.9 % (0.0-2.0); EOSINOPHILS % (AUTO) 4.4 % (0.0-3.0); HEMATOCRIT 34.9 % (42.0-52.0); HEMOGLOBIN 10.5 G/DL (14.2-18.0); LYMPHOCYTES % (AUTO) 16.6 % (20.0-45.0); MEAN CORPUSCULAR VOLUME 98 FL (80-99); MONOCYTES % (AUTO) 10.1 % (1.0-10.0); PLATELET COUNT 191 K/UL (150-450); RED BLOOD COUNT 3.57 M/UL (4.70-6.10); RED CELL DISTRIBUTION WIDTH 15.9 % (11.6-14.8); WHITE BLOOD COUNT 8.5 K/UL (4.8-10.8)
[2019-05-27 07:29] LABS: ANION GAP 7 mmol/L (5-15); BLOOD UREA NITROGEN 17 mg/dL (7-18); CALCIUM 8.4 MG/DL (8.5-10.1); CARBON DIOXIDE 29 MMOL/L (21-32); CHLORIDE 104 MMOL/L (98-107); CREATININE 5.5 MG/DL (0.55-1.30); POTASSIUM 4.5 MMOL/L (3.5-5.1); SODIUM 140 MMOL/L (136-145)
--- NOTE | 2019-05-27 07:51 | NUR ---
HAND-OFF: Report given to KALEIGH Mora.
[2019-05-27 08:00] VITALS: BP 145/83
--- NOTE | 2019-05-27 08:34 | Cardiology Report ---
APPROVED REPORT EXAM: Two-dimensional and M-mode echocardiogram with Doppler and color Doppler. INDICATION S.O.B M-Mode DIMENSIONS IVSd1.9 (0.7-1.1cm)Left Atrium (MM)3.1 (1.6-4.0cm) LVDd4.6 (3.5-5.6cm)Aortic Root3.0 (2.0-3.7cm) PWd1.4 (0.7-1.1cm)Aortic Cusp Exc.1.7 (1.5-2.0cm) IVSs2.2 cm LVDs3.8 (2.5-4.0cm) PWs1.2 cm Technically difficult study due to poor acoustical windows. Study quality precludes accurate assessment of regional wall motion. Normal left ventricular chamber size extend visualized . Anteroseptal hypokinesis. Left ventricular ejection fraction estimated to be 40-45%. No evidence of left ventricular hypertrophy. Anterior Echo-free space, may be due to pericardial fat or effusion. All other cardiac chamber sizes are within normal limits. Focal aortic valve sclerosis with normal cusp excursion. Thickened mitral valve leaflets with normal excursion. Mitral annulus and aortic root calcification. Normal pulmonic valve structure. Normal tricuspid valve structure. IVC at normal size with physiologic collapse. Pacemaker wire present in the right side chambers. A color flow and spectral Doppler study was performed and revealed: No aortic insufficiency. Mild mitral regurgitation. Mitral inflow velocities indicates possible pseudo normalization pattern implying moderately elevated left atrial pressure (Grade II ). Mild tricuspid regurgitation. Tricuspid systolic velocities suggests peak right ventricular systolic pressure of 41mmHg,consistent with mild pulmonary HTN.
--- NOTE | 2019-05-27 09:32 | General Progress Note ---
Assessment/Plan Status: stable Assessment/Plan: 69 year oldrola a PMH of a fib on AC, ESRD on HD, anemia, htn, DM, COPD, HFPEF presented for acute hypoxemic respiratory failure # Acute Hypoxic Repiratory Failure likely 2/2 chf exacerbation - cardiac medications - echo with preserved EF - HD for fluid removal per Dr. Chen. HD 05/26 - RT - breathing treatments - Pulm Consult appreciated # Supratherapeutic INR - hold coumadin - vit k +/- FFP if patient bleeds - daily INR needed - Pharmacy to dose. # Hyponatremia likely hypervolemic from chf - HD - CTM # ESRD - HD by Nephrology # Afib with episodes of WCT and AF with aberrancy, Dr. Stone consultation appreciated. Dr. Villegas covering today. - cardiac meds being adjusted. 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 - Await recommendations. Likely not surgical intervention. # Full Code # Dispo- SNF (prior resident) - Request PT and OT evaluation for mobility Subjective ROS Limited/Unobtainable: Yes Allergies: Coded Allergies: No Known Allergies (Verified , 07/21/11) Subjective Reports feeling better today. Ate 50 % breakfast. Patient has not been out of bed since admission. Objective Last 24 Hour Vital Signs Date Time Temp Pulse Resp B/P (MAP) Pulse Ox O2 Delivery O2 Flow Rate FiO2 05/27/19 06:37 94 20 100 Nasal Cannula 2.0 05/27/19 06:28 90 20 99 Nasal Cannula 2.0 05/27/19 06:28 99 Nasal Cannula 2.0 05/27/19 04:00 2.0 05/27/19 04:00 96 05/27/19 04:00 97.9 96 20 143/83 (103) 96 05/27/19 02:50 120 20 100 Nasal Cannula 2.0 05/27/19 02:41 117 22 100 Nasal Cannula 2.0 05/27/19 00:00 96.8 103 21 134/66 (88) 97 05/27/19 00:00 103 05/26/19 23:36 102 16 100 Nasal Cannula 2.0 05/26/19 23:28 107 18 99 Nasal Cannula 2.0 28 05/26/19 21:19 105 130/74 05/26/19 21:00 Nasal Cannula 2.0 05/26/19 20:00 98.2 105 22 130/74 (92) 100 05/26/19 20:00 2.0 05/26/19 20:00 130 05/26/19 19:41 90 18 100 Nasal Cannula 2.0 28 05/26/19 19:34 99 Nasal Cannula 2.0 28 05/26/19 19:33 97 16 97 Nasal Cannula 2.0 28 05/26/19 16:00 110 05/26/19 16:00 2.0 05/26/19 16:00 97.5 110 20 133/90 (104) 93 05/26/19 15:08 60 18 100 Nasal Cannula 2.0 28 05/26/19 14:55 65 16 97 Nasal Cannula 2.0 28 05/26/19 12:00 97.1 122 20 107/64 (78) 96 05/26/19 12:00 2.0 05/26/19 12:00 127 05/26/19 11:06 119 Nasal Cannula 2.0 28 05/26/19 11:06 Nasal Cannula 2.0 28 Intake and Output 05/26/19 05/27/19 19:00 07:00 Intake Total 120 ml 150 ml Output Total 2500 ml Balance -2380 ml 150 ml Intake Oral 120 ml 150 ml Hemodialysis UF 2500 ml # Bowel Movements 4 Laboratory Tests 05/27/19 06:50: White Blood Count 8.5, Red Blood Count 3.57L, Hemoglobin 10.5L, Hematocrit 34.9L , Mean Corpuscular Volume 98, Mean Corpuscular Hemoglobin 29.3, Mean Corpuscular Hemoglobin Concent 30.0L, Red Cell Distribution Width 15.9H, Platelet Count 191, Mean Platelet Volume 5.7L, Neutrophils (%) (Auto) 68.0, Lymphocytes (%) (Auto) 16.6L, Monocytes (%) (Auto) 10.1H, Eosinophils (%) (Auto ) 4.4H, Basophils (%) (Auto) 0.9, Sodium Level 140, Potassium Level 4.5, Chloride Level 104, Carbon Dioxide Level 29, Anion Gap 7, Blood Urea Nitrogen 17 , Creatinine 5.5H, Estimat Glomerular Filtration Rate 12.5, Glucose Level 95, Hemoglobin A1c 6.0, Calcium Level 8.4L Height (Feet): 5 Height (Inches): 10.00 Weight (Pounds): 189 General Appearance: moderate distress EENT: PERRL/EOMI Neck: non-tender Cardiovascular: normal rate, irregularly irregular Abdomen: normal bowel sounds, non tender Edema: trace edema Neurologic: bmet II-XII grossly normal Riccardo Saravia MD May 27, 2019 09:32
--- NOTE | 2019-05-27 09:48 | Cardiology Progress Note ---
Assessment/Plan Status: stable Assessment/Plan Assessment/Plan Assessment/Plan 1. Wide complex tachycardia. Atrial fibrillation No evidence of pre excitation His echocardiogram showed EF of 40 to 45 percent. Increase coreg to 25 mg BID D/c digoxin in light of renal disease and hyperkalemia 2. Elevated INR Hold coumadin per pharmacy 3. Hypertension. Continue current medical therapy. 4. Congestive heart failure with EF of 40 to 45 percent Multifactorial Ischemia evaluation when stable due to risk factors 5. COPD. stable 6. UTI. On antibiotics. 7. End-stage renal disease, on hemodialysis. Subjective Cardiovascular: Reports: no symptoms Respiratory: Reports: no symptoms Gastrointestinal/Abdominal: Reports: no symptoms Genitourinary: Reports: no symptoms Subjective Coverage for [place] Remains tachycardic but rates better controlled, BP stable, no acute events, no distress, nursing notes reviewed, d/w Internal medicine Objective Last 24 Hour Vital Signs Date Time Temp Pulse Resp B/P (MAP) Pulse Ox O2 Delivery O2 Flow Rate FiO2 05/27/19 08:00 2.0 05/27/19 08:00 97.9 109 18 145/83 (103) 96 05/27/19 06:37 94 20 100 Nasal Cannula 2.0 28 05/27/19 06:28 90 20 99 Nasal Cannula 2.0 28 05/27/19 06:28 99 Nasal Cannula 2.0 28 05/27/19 04:00 2.0 05/27/19 04:00 96 05/27/19 04:00 97.9 96 20 143/83 (103) 96 05/27/19 02:50 120 20 100 Nasal Cannula 2.0 28 05/27/19 02:41 117 22 100 Nasal Cannula 2.0 28 05/27/19 00:00 96.8 103 21 134/66 (88) 97 05/27/19 00:00 103 05/26/19 23:36 102 16 100 Nasal Cannula 2.0 28 05/26/19 23:28 107 18 99 Nasal Cannula 2.0 28 05/26/19 21:19 105 130/74 05/26/19 21:00 Nasal Cannula 2.0 05/26/19 20:00 98.2 105 22 130/74 (92) 100 05/26/19 20:00 2.0 05/26/19 20:00 130 05/26/19 19:41 90 18 100 Nasal Cannula 2.0 28 05/26/19 19:34 99 Nasal Cannula 2.0 28 05/26/19 19:33 97 16 97 Nasal Cannula 2.0 28 05/26/19 16:00 110 05/26/19 16:00 2.0 05/26/19 16:00 97.5 110 20 133/90 (104) 93 05/26/19 15:08 60 18 100 Nasal Cannula 2.0 28 05/26/19 14:55 65 16 97 Nasal Cannula 2.0 28 05/26/19 12:00 97.1 122 20 107/64 (78) 96 05/26/19 12:00 2.0 05/26/19 12:00 127 05/26/19 11:06 119 Nasal Cannula 2.0 28 05/26/19 11:06 Nasal Cannula 2.0 28 General Appearance: no apparent distress, alert EENT: PERRL/EOMI, normal ENT inspection, TMs normal, pharynx normal Neck: non-tender, normal alignment, supple, normal inspection, no JVD Rhythm: Afib Cardiovascular: regularly irregular Respiratory/Chest: chest wall non-tender, lungs clear, normal breath sounds Abdomen: normal bowel sounds, non tender, soft, no organomegaly, no mass Extremities: normal range of motion, non-tender, normal inspection, no calf tenderness, no swelling 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, no motor/sensory deficits Intake and Output 05/26/19 05/27/19 19:00 07:00 Intake Total 120 ml 150 ml Output Total 2500 ml Balance -2380 ml 150 ml Intake Oral 120 ml 150 ml Hemodialysis UF 2500 ml # Bowel Movements 4 Laboratory Tests Test 05/27/19 06:50 White Blood Count 8.5 K/UL (4.8-10.8) Red Blood Count 3.57 M/UL (4.70-6.10) L Hemoglobin 10.5 G/DL (14.2-18.0) L Hematocrit 34.9 % (42.0-52.0) L Mean Corpuscular Volume 98 FL (80-99) Mean Corpuscular Hemoglobin 29.3 PG (27.0-31.0) Mean Corpuscular Hemoglobin Concent 30.0 G/DL (32.0-36.0) L Red Cell Distribution Width 15.9 % (11.6-14.8) H Platelet Count 191 K/UL (150-450) Mean Platelet Volume 5.7 FL (6.5-10.1) L Neutrophils (%) (Auto) 68.0 % (45.0-75.0) Lymphocytes (%) (Auto) 16.6 % (20.0-45.0) L Monocytes (%) (Auto) 10.1 % (1.0-10.0) H Eosinophils (%) (Auto) 4.4 % (0.0-3.0) H Basophils (%) (Auto) 0.9 % (0.0-2.0) Sodium Level 140 MMOL/L (136-145) Potassium Level 4.5 MMOL/L (3.5-5.1) Chloride Level 104 MMOL/L (98-107) Carbon Dioxide Level 29 MMOL/L (21-32) Anion Gap 7 mmol/L (5-15) Blood Urea Nitrogen 17 mg/dL (7-18) Creatinine 5.5 MG/DL (0.55-1.30) H Estimat Glomerular Filtration Rate 12.5 mL/min (>60) Glucose Level 95 MG/DL (74-106) Hemoglobin A1c 6.0 % (4.3-6.0) Calcium Level 8.4 MG/DL (8.5-10.1) L Microbiology Date/Time Source Procedure Growth Status 05/26/19 13:00 Stool Clostridium difficile Toxin Assay - Final Complete Filsoof,Navneet Darnell MD May 27, 2019 09:48
[2019-05-27] MEDS: Sertraline 50mg tab ORAL SCH (10:33)
[2019-05-27] MEDS: Docusate 100mg cap ORAL SCH ×3 (10:33→18:04)
[2019-05-27] MEDS: Nephrovite tab (Rena-Vite) ORAL SCH (10:33)
[2019-05-27] MEDS: Lisinopril 10mg tab ORAL SCH (10:34)
[2019-05-27] MEDS: Imdur 30mg tab ORAL SCH (10:34)
[2019-05-27 12:00] VITALS: BP 126/71
--- NOTE | 2019-05-27 13:06 | NUR ---
SWALLOW/SPEECH THERAPY NOTE: SWALLOW STATUS: REVIEWED MODIFIED BARIUM SWALLOW STUDY IMAGES, COMPLETED REPORT. PATIENT'S GOALS FOR INTAKE NOT MET AND VERY POOR BUT HE IS NOT RECEPTIVE TO NONORAL FEEDINGS AT THIS TIME. PER RN, PATIENT IS VERY LETHARGIC SO WILL HOLD ON PO TRIALS AT THIS TIME. NO POLST REGARDING TUBE FEEDINGS VERSUS COMFORT FEEDING PREFERENCES. GOALS MET FOR STAFF EDUCATED/TRAINED IN POSTED ASPIRATION AND REFLUX PRECAUTIONS. RECEPTIVE TO NGT AND POSSIBLE PEG LONG HE CAN HAVE SOME ORAL GRAT. NEEDED SOME CUES TO PLACE HOB AT 90 DEGREES WHEN FEEDING PATIENT SO HE DOES NOT ASPIRATE. PLAN: CONSIDER NONORAL FEEDINGS PO INTAKE IS POOR AND HAS BEEN SINCE TRANSFER FROM SNF. AFTER CXR, CONSIDER PLACING NGT 12 MAL[place]SIAN FOR NOW AND GI CONSULT (DR TANG) OK PER DR ZAMARRIPA FOR POSSIBLE PEG. CONTINUE WITH ORAL GRAT ONLY WHEN ALERT. CALORIE COUNT AND MAKE SURE HE RECEIVES HIGH RAJESH SUP. INCREASE INTAKE DURING MEALS. SEE PLAN OF CARE IN MBSS REPORT
--- NOTE | 2019-05-27 13:47 | Nephrology Progress Note ---
Assessment/Plan Problem List: (1) ESRF (end stage renal failure) (2) Cardiomyopathy (3) COPD (chronic obstructive pulmonary disease) (4) Anemia Assessment presents with SOB: CHF vs COPD Exacerbation ESRD CHF with previous Echo showing Ej Fx 40 % h/o At fib DM HTN Anemia COPD recent ear infection Plan HD next Optimize cardiac condition BP and BS check and control Discussed with Dr Chucky Hayes and Dig adjust mind altering meds per PMD per orders Subjective ROS Limited/Unobtainable: No Constitutional: Reports: malaise Objective Objective Last 24 Hour Vital Signs Date Time Temp Pulse Resp B/P (MAP) Pulse Ox O2 Delivery O2 Flow Rate FiO2 05/27/19 12:00 2.0 05/27/19 12:00 97.6 108 18 126/71 (89) 96 05/27/19 10:34 145/83 05/27/19 10:34 145/83 05/27/19 10:19 90 20 100 Nasal Cannula 2.0 28 05/27/19 10:08 84 18 98 Nasal Cannula 2.0 28 05/27/19 09:00 Nasal Cannula 2.0 05/27/19 08:00 2.0 05/27/19 08:00 97.9 109 18 145/83 (103) 96 05/27/19 08:00 116 05/27/19 06:37 94 20 100 Nasal Cannula 2.0 28 05/27/19 06:28 90 20 99 Nasal Cannula 2.0 28 05/27/19 06:28 99 Nasal Cannula 2.0 28 05/27/19 04:00 2.0 05/27/19 04:00 96 05/27/19 04:00 97.9 96 20 143/83 (103) 96 05/27/19 02:50 120 20 100 Nasal Cannula 2.0 28 05/27/19 02:41 117 22 100 Nasal Cannula 2.0 28 05/27/19 00:00 96.8 103 21 134/66 (88) 97 05/27/19 00:00 103 05/26/19 23:36 102 16 100 Nasal Cannula 2.0 28 05/26/19 23:28 107 18 99 Nasal Cannula 2.0 28 05/26/19 21:19 105 130/74 05/26/19 21:00 Nasal Cannula 2.0 05/26/19 20:00 98.2 105 22 130/74 (92) 100 05/26/19 20:00 2.0 05/26/19 20:00 130 05/26/19 19:41 90 18 100 Nasal Cannula 2.0 28 05/26/19 19:34 99 Nasal Cannula 2.0 28 05/26/19 19:33 97 16 97 Nasal Cannula 2.0 28 05/26/19 16:00 110 05/26/19 16:00 2.0 05/26/19 16:00 97.5 110 20 133/90 (104) 93 05/26/19 15:08 60 18 100 Nasal Cannula 2.0 28 05/26/19 14:55 65 16 97 Nasal Cannula 2.0 28 Intake and Output 05/26/19 05/27/19 19:00 07:00 Intake Total 120 ml 150 ml Output Total 2500 ml Balance -2380 ml 150 ml Intake Oral 120 ml 150 ml Hemodialysis UF 2500 ml # Bowel Movements 4 Laboratory Tests 05/27/19 06:50: White Blood Count 8.5, Red Blood Count 3.57L, Hemoglobin 10.5L, Hematocrit 34.9L , Mean Corpuscular Volume 98, Mean Corpuscular Hemoglobin 29.3, Mean Corpuscular Hemoglobin Concent 30.0L, Red Cell Distribution Width 15.9H, Platelet Count 191, Mean Platelet Volume 5.7L, Neutrophils (%) (Auto) 68.0, Lymphocytes (%) (Auto) 16.6L, Monocytes (%) (Auto) 10.1H, Eosinophils (%) (Auto ) 4.4H, Basophils (%) (Auto) 0.9, Sodium Level 140, Potassium Level 4.5, Chloride Level 104, Carbon Dioxide Level 29, Anion Gap 7, Blood Urea Nitrogen 17 , Creatinine 5.5H, Estimat Glomerular Filtration Rate 12.5, Glucose Level 95, Hemoglobin A1c 6.0, Calcium Level 8.4L 05/27/19 09:35: Prothrombin Time 48.6H, Prothromb Time International Ratio 5.0H Height (Feet): 5 Height (Inches): 10.00 Weight (Pounds): 188 General Appearance: no apparent distress Objective no change Francisco Javier Abraham MD May 27, 2019 13:47
--- NOTE | 2019-05-27 15:27 | Diagnostic Imaging Report ---
Indication: Dyspnea Comparison: 05/24/2019 A single view chest radiograph was obtained. Findings: Mild vascular congestion is present but stable. Left jugular permacath and pacemaker again noted. Cardiomegaly is present. IMPRESSION: Mild pulmonary vascular congestion. No interval change
[2019-05-27 16:00] VITALS: BP 116/75
--- NOTE | 2019-05-27 17:18 | Consultation ---
History of Present Illness General Date patient seen: May 27, 2019 Reason for Hospitalization: Dyspnea/Respdistress Present Illness HPI This is a very pleasant 69-year-old male with multiple medical comorbidities who is a shelter resident that presented to [facility] with respiratory insufficiency. Patient was admitted for care and management. During admission patient was identified to have necrosis and gangrene of his distal ray/foot/toe. Surgery was called to evaluate and assist with care and management. Patient seen, patient evaluate, chart reviewed. Allergies: Coded Allergies: No Known Allergies (Verified , 07/21/11) Medication History Scheduled Aripiprazole* (Abilify*), 15 MG ORAL DAILY, (Reported) Aspirin* (Aspirin*), 81 MG ORAL DAILY, (Reported) Atorvastatin Calcium* (Atorvastatin Calcium*), 40 MG ORAL DAILY, (Reported) Calcium Acetate (Calcium Acetate), 1,334 MG PO TID, (Reported) Folic Acid/Vitamin B Comp W-C (Gail-Saranya Tablet), 0.8 MG PO DAILY, (Reported) Isosorbide Mononitrate (Isosorbide Mononitrate Er), 60 MG PO DAILY, (Reported) Linagliptin (Tradjenta), 5 MG PO DAILY, (Reported) Lisinopril* (Prinivil*), 20 MG ORAL DAILY Losartan Potassium* (Losartan Potassium*), 50 MG ORAL DAILY, (Reported) Losartan Potassium* (Cozaar*), 50 MG ORAL DAILY, (Reported) Metolazone (Metolazone), 5 MG PO DAILY, (Reported) Metoprolol Succinate* (Metoprolol Succinate*), 100 MG ORAL DAILY, (Reported) Metoprolol Tartrate* (Metoprolol Tartrate*), 100 MG ORAL BID Pantoprazole* (Protonix*), 40 MG ORAL DAILY, (Reported) Sertraline Hcl* (Zoloft*), 50 MG ORAL DAILY, (Reported) Sevelamer Carbonate (Renvela), 2,400 MG ORAL THREE TIMES A DAY Warfarin Sod* (Warfarin Sod*), 5 MG ORAL DAILY, (Reported) [Digoxin], 0.125 MG ORAL DAILY Miscellaneous Medications Albuterol Sulfate (Ventolin Hfa), 1 PUFF INH, (Reported) Loperamide Hcl (Loperamide), 2 MG PO, (Reported) [zaroxolyn], (Reported) Patient History Limited by: medical condition History Provided By: Patient, Medical Record, PMD Healthcare decision maker SELF Resuscitation status Full Code Advanced Directive on File No Past Medical/Surgical History Past Medical/Surgical History: (1) Alzheimer's dementia (2) Dyspnea (3) Hypoxia (4) Cardiomyopathy (5) Atrial fibrillation with RVR (6) Anemia (7) Pulmonary hypertension (8) Hypercoagulable state (9) COPD (chronic obstructive pulmonary disease) (10) Pneumonia (11) Sepsis (12) UTI (lower urinary tract infection) (13) Diabetes (14) Acute metabolic encephalopathy (15) ESRF (end stage renal failure) (16) MDD (major depressive disorder), recurrent episode, moderate (17) Acute metabolic encephalopathy (18) Cardiomyopathy (19) Elevated troponin I level (20) Episode of generalized weakness (21) Atrial fibrillation Review of Systems Review of Symptoms General ROS: no weight loss or fever Psychological ROS: no depression or mood changes, no memory loss Ophthalmic ROS: no visual changes or eye irritation ENT ROS: no nasal congestion, hearing loss, dizziness Allergy and Immunology ROS: no allergic symptoms or urticaria Hematological and Lymphatic ROS: no swollen glands, unusual bleeding or bruising Endocrine ROS: no polyuria, polydipsia, weight changes, temperature intolerance Respiratory ROS: no cough, shortness of breath, or wheezing Cardiovascular ROS: no chest pain or dyspnea on exertion Gastrointestinal ROS: denies abdominal pain, no bright red blood in stool. Musculoskeletal ROS: no myalgias or arthralgias Neurological ROS: no TIA or stroke symptoms Dermatological ROS: no new or changing skin lesions, rashes or pruritis Physical Exam Physical Exam General appearance: alert, cooperative, no distress, appears stated age Head: Normocephalic, without obvious abnormality, atraumatic Eyes: conjunctivae/corneas clear. PERRL, EOM's intact. Fundi benign Throat: Lips, mucosa, and tongue normal. Teeth and gums normal Neck: supple, symmetrical, trachea midline, no adenopathy, thyroid: not enlarged, symmetric, no tenderness/mass/nodules, no carotid bruit and no JVD Lungs: clear to auscultation bilaterally Heart: regular rate and rhythm, S1, S2 normal, no murmur, click, rub or gallop Abdomen: soft, non-tender. Bowel sounds normal. No masses, no organomegaly Extremities: extremities normal, atraumatic, no cyanosis or edema. ray gangrene dry Pulses: 2+ and symmetric Skin: Skin color, texture, turgor normal. No rashes or lesions Neurologic: Grossly normal Last 24 Hour Vital Signs Date Time Temp Pulse Resp B/P (MAP) Pulse Ox O2 Delivery O2 Flow Rate FiO2 05/27/19 16:00 98.1 117 18 116/75 (89) 20 05/27/19 16:00 2.0 05/27/19 15:11 84 20 100 Nasal Cannula 2.0 28 05/27/19 15:00 80 20 98 Nasal Cannula 2.0 28 05/27/19 14:09 137 05/27/19 12:00 2.0 05/27/19 12:00 97.6 108 18 126/71 (89) 96 05/27/19 12:00 137 05/27/19 10:34 145/83 05/27/19 10:34 145/83 05/27/19 10:19 90 20 100 Nasal Cannula 2.0 05/27/19 10:08 84 18 98 Nasal Cannula 2.0 28 05/27/19 09:00 Nasal Cannula 2.0 05/27/19 08:00 2.0 05/27/19 08:00 97.9 109 18 145/83 (103) 96 05/27/19 08:00 116 05/27/19 06:37 94 20 100 Nasal Cannula 2.0 28 05/27/19 06:28 90 20 99 Nasal Cannula 2.0 05/27/19 06:28 99 Nasal Cannula 2.0 28 05/27/19 04:00 2.0 05/27/19 04:00 96 05/27/19 04:00 97.9 96 20 143/83 (103) 96 05/27/19 02:50 120 20 100 Nasal Cannula 2.0 05/27/19 02:41 117 22 100 Nasal Cannula 2.0 05/27/19 00:00 96.8 103 21 134/66 (88) 97 05/27/19 00:00 103 05/26/19 23:36 102 16 100 Nasal Cannula 2.0 05/26/19 23:28 107 18 99 Nasal Cannula 2.0 05/26/19 21:19 105 130/74 05/26/19 21:00 Nasal Cannula 2.0 05/26/19 20:00 98.2 105 22 130/74 (92) 100 05/26/19 20:00 2.0 05/26/19 20:00 130 05/26/19 19:41 90 18 100 Nasal Cannula 2.0 28 05/26/19 19:34 99 Nasal Cannula 2.0 28 05/26/19 19:33 97 16 97 Nasal Cannula 2.0 28 Intake and Output 05/26/19 05/27/19 19:00 07:00 Intake Total 120 ml 150 ml Output Total 2500 ml Balance -2380 ml 150 ml Intake Oral 120 ml 150 ml Hemodialysis UF 2500 ml # Bowel Movements 4 Laboratory Tests Test 05/27/19 06:50 05/27/19 09:35 White Blood Count 8.5 K/UL (4.8-10.8) Red Blood Count 3.57 M/UL (4.70-6.10) L Hemoglobin 10.5 G/DL (14.2-18.0) L Hematocrit 34.9 % (42.0-52.0) L Mean Corpuscular Volume 98 FL (80-99) Mean Corpuscular Hemoglobin 29.3 PG (27.0-31.0) Mean Corpuscular Hemoglobin Concent 30.0 G/DL (32.0-36.0) L Red Cell Distribution Width 15.9 % (11.6-14.8) H Platelet Count 191 K/UL (150-450) Mean Platelet Volume 5.7 FL (6.5-10.1) L Neutrophils (%) (Auto) 68.0 % (45.0-75.0) Lymphocytes (%) (Auto) 16.6 % (20.0-45.0) L Monocytes (%) (Auto) 10.1 % (1.0-10.0) H Eosinophils (%) (Auto) 4.4 % (0.0-3.0) H Basophils (%) (Auto) 0.9 % (0.0-2.0) Sodium Level 140 MMOL/L (136-145) Potassium Level 4.5 MMOL/L (3.5-5.1) Chloride Level 104 MMOL/L (98-107) Carbon Dioxide Level 29 MMOL/L (21-32) Anion Gap 7 mmol/L (5-15) Blood Urea Nitrogen 17 mg/dL (7-18) Creatinine 5.5 MG/DL (0.55-1.30) H Estimat Glomerular Filtration Rate 12.5 mL/min (>60) Glucose Level 95 MG/DL (74-106) Hemoglobin A1c 6.0 % (4.3-6.0) Calcium Level 8.4 MG/DL (8.5-10.1) L Prothrombin Time 48.6 SEC (9.30-11.50) H Prothromb Time International Ratio 5.0 (0.9-1.1) H Height (Feet): 5 Height (Inches): 10.00 Weight (Pounds): 188 Medications Current Medications Medications (Trade) Dose Ordered Sig/Divya Route PRN Reason Start Time Stop Time Status Last Admin Dose Admin Acetaminophen (Tylenol) 650 mg Q4H PRN ORAL Mild Pain (Pain Scale 1-3) 05/23/19 18:15 06/22/19 18:14 Acetaminophen (Tylenol) 650 mg Q4H PRN ORAL fever (temp>100.5F) 05/23/19 18:15 06/22/19 18:14 Albuterol/ Ipratropium (Albuterol/ Ipratropium) 3 ml Q4HRT HHN 05/24/19 03:00 05/29/19 02:59 05/27/19 15:10 Albuterol/ Ipratropium (Albuterol/ Ipratropium) 3 ml Q6H PRN HHN Shortness of Breath 05/23/19 18:15 05/28/19 18:14 Aripiprazole (Abilify) 15 mg DAILY ORAL 05/24/19 09:00 06/23/19 08:59 05/27/19 10:34 Atorvastatin Calcium (Lipitor) 40 mg QHS ORAL 05/25/19 21:00 06/23/19 08:59 05/26/19 21:19 Carvedilol (Coreg) 25 mg EVERY 12 HOURS ORAL 05/27/19 21:00 06/23/19 20:59 Ceftriaxone Sodium 1 gm/ Dextrose 55 ml @ 110 mls/hr Q24H IVPB 05/24/19 18:00 05/31/19 17:59 05/26/19 17:22 Dextrose (Dextrose 50%) 25 ml Q30M PRN IV Hypoglycemia 05/23/19 18:15 06/22/19 18:14 Dextrose (Dextrose 50%) 50 ml Q30M PRN IV Hypoglycemia 05/23/19 18:15 06/22/19 18:14 Diphenhydramine HCl (Benadryl) 25 mg Q6H PRN ORAL Itching/Pruritis 05/23/19 18:15 06/22/19 18:14 Docusate Sodium (Colace) 100 mg THREE TIMES A DAY ORAL 05/24/19 13:00 06/23/19 12:59 05/27/19 14:08 Hydromorphone HCl (Dilaudid) 0.5 mg Q6H PRN IVP Severe Pain (Pain Scale 7-10) 05/23/19 18:15 05/30/19 18:14 Isosorbide Mononitrate (Imdur) 60 mg DAILY ORAL 05/24/19 09:00 06/23/19 08:59 05/27/19 10:34 Lisinopril (Zestril) 10 mg DAILY ORAL 05/26/19 09:00 06/23/19 08:59 05/27/19 10:34 Lorazepam (Ativan) 1 mg Q4H PRN ORAL For Anxiety 05/23/19 18:15 05/30/19 18:14 05/27/19 01:42 Metoclopramide HCl (Reglan) 10 mg Q6H PRN IVP Nausea & Vomiting 05/23/19 18:15 06/22/19 18:14 Mupirocin (Bactroban Oint) 1 applic BID TOPIC 05/26/19 11:00 05/30/19 18:01 05/27/19 11:26 Ondansetron HCl (Zofran) 4 mg Q6H PRN IVP Nausea & Vomiting 05/23/19 18:15 06/22/19 18:14 Pantoprazole (Protonix) 40 mg EVERY 12 HOURS ORAL 05/24/19 21:00 06/23/19 20:59 05/27/19 10:35 Prochlorperazine (Compazine) 10 mg Q6H PRN IVP Nausea & Vomiting 05/23/19 18:15 06/22/19 18:14 Sertraline HCl (Zoloft) 50 mg DAILY ORAL 05/24/19 09:00 06/23/19 08:59 05/27/19 10:33 Sevelamer Carbonate (Renvela) 1,600 mg THREE TIMES A DAY ORAL 05/24/19 13:00 06/23/19 08:59 05/27/19 14:07 Temazepam (Restoril) 15 mg HSPRN PRN ORAL Insomnia 05/23/19 18:15 05/30/19 18:14 05/26/19 21:19 Vitamin B Complex/ Vit C/Folic Acid (Nephrovite) 1 tab DAILY ORAL 05/24/19 09:00 06/23/19 08:59 05/27/19 10:33 Assessment/Plan Problem List: (1) Gangrene of toe Assessment & Plan: Patient with two partial thickness pressure injuries sacral cleft (proximal)(L)0.4cm x (W)0.3cm. Base of wound moist and viable Non- blanching erythema without induration periwound. (distal at perianal ) (L)1.7cm x (W)0.5cm. Base of wound moist and viable. Borders macerated. Non-Blanching erythema without induration periwound. Non-blanching erythema with fluctuance noted to L heel . Non-blanching erythema with fluctuance noted to R heel. L 4th metatarsal is necrotic but dry . Recommendations: Necrotic L 4th metatarsal. etiology potentially vascular vs trauma. will order studies and work up. Apply Moisture Barrier Paste to Buttocks. Cover with Optifoam drsg . Change every 3 days and prn. Apply Cavilon Skin Barrier to both heels. Cover each heel with Optifoam drsg.Change every 7 days and PRN. Apply Betadine to L 4th metatarsal daily. Reposition at least every 2 hours or as tolerated. Off-load heels with pillow. ICD Codes: I96 - Gangrene, not elsewhere classified SNOMED: [id number] Killian Doyle May 27, 2019 17:18
[2019-05-27] MEDS: cefTRIAXone 1gm/D5W 55ml IVPB SCH ×2 (18:04)
--- NOTE | 2019-05-27 19:00 | NUR ---
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 WILL CONT TO MONITOR.
--- NOTE | 2019-05-27 19:25 | NUR ---
HAND-OFF: Report given to .LISSY FARRIS.
--- NOTE | 2019-05-27 19:26 | NUR ---
NURSE NOTES: Received pt from KALEIGH Mora. Pt is awake and resting in bed. Iv site intact. Tolerating room air. Bed locked in lowest position, bed locked, call light within reach. Will continue with plan of care.
--- NOTE | 2019-05-27 19:54 | Pulmonology Progress Note ---
Assessment/Plan Assessment/Plan Pulmonary Progress Note HPI Patient is a 69-year-old male with a history of Alzheimers Dementia, COPD, CHF with EF 25%, Hypertension, Pacemaker, CKD on HD, Previous CVA, chronic weakness , Diabetes, AO x1, presents with acute dyspnea, patient was at the convalescent house not taking his oxygen, he is oxygen dependent, has a history of COPD, he was hypoxic down to the low 80s, history is limited secondary to patient's dementia. Noted to have UTI in he ED, CXR clear. V/Q negative, has coagulopathy Previously on anticoagulation THERMOCOUPLE TESTER for atrial fibrillation Allergies: No Known Allergies Past Medical History: Alzheimers Dementia, COPD, Hypertension, CHF with EF 25% , Pacemaker, CKD on HD, Previous CVA, chronic weakness, Diabetes All Other Systems: limited Physical Exam Vital Signs Noted General Appearance: no apparent distress, alert Head: normocephalic, atraumatic Eyes: bilateral eye PERRL, bilateral eye EOMI ENT: uvula midline, moist mucus membranes Neck: supple, thyroid normal, supple/symmetrical/no masses Respiratory: lungs clear, no respiratory distress, no retraction, no accessory muscle use, other - on non rebreather Cardiovascular: normal HS, normal peripheral pulses, no gallop, no murmur, tachycardia, irregular Gastrointestinal: non tender, soft, no guarding, no rebound Musculoskeletal: normal inspection Neurologic: awake, oriented x1, responsive Skin: no rash, warm/dry, no edema Impression: Dyspnea CHF with EF 25% HTN COPD Hypoxia UTI (lower urinary tract infection) Alzheimer Dementa Plan - O2 PRN - HHN - R/O DVT/PE - IV Antibiotics for UTI - Monitor labs - PPX Laboratory Tests Noted EKG: Atrial fibrillation, rate 110, QTc 544, no acute ST elevations, normal axis Chest X-Ray: no consolidation, no pneumothorax, no acute cardiopulmonary disease Subjective ROS Limited/Unobtainable: No Allergies: Coded Allergies: No Known Allergies (Verified , 07/21/11) Objective Last 24 Hour Vital Signs Date Time Temp Pulse Resp B/P (MAP) Pulse Ox O2 Delivery O2 Flow Rate FiO2 05/27/19 19:36 75 20 100 Nasal Cannula 2.0 05/27/19 19:27 98 Nasal Cannula 2.0 05/27/19 19:27 72 20 98 Nasal Cannula 2.0 05/27/19 16:00 98.1 117 18 116/75 (89) 20 05/27/19 16:00 128 05/27/19 16:00 2.0 05/27/19 15:11 84 20 100 Nasal Cannula 2.0 28 05/27/19 15:00 80 20 98 Nasal Cannula 2.0 28 05/27/19 14:09 137 05/27/19 12:00 2.0 05/27/19 12:00 97.6 108 18 126/71 (89) 96 05/27/19 12:00 137 05/27/19 10:34 145/83 05/27/19 10:34 145/83 05/27/19 10:19 90 20 100 Nasal Cannula 2.0 28 05/27/19 10:08 84 18 98 Nasal Cannula 2.0 28 05/27/19 09:00 Nasal Cannula 2.0 05/27/19 08:00 2.0 05/27/19 08:00 97.9 109 18 145/83 (103) 96 05/27/19 08:00 116 05/27/19 06:37 94 20 100 Nasal Cannula 2.0 28 05/27/19 06:28 90 20 99 Nasal Cannula 2.0 28 05/27/19 06:28 99 Nasal Cannula 2.0 28 05/27/19 04:00 2.0 05/27/19 04:00 96 05/27/19 04:00 97.9 96 20 143/83 (103) 96 05/27/19 02:50 120 20 100 Nasal Cannula 2.0 28 05/27/19 02:41 117 22 100 Nasal Cannula 2.0 28 05/27/19 00:00 96.8 103 21 134/66 (88) 97 05/27/19 00:00 103 05/26/19 23:36 102 16 100 Nasal Cannula 2.0 28 05/26/19 23:28 107 18 99 Nasal Cannula 2.0 28 05/26/19 21:19 105 130/74 05/26/19 21:00 Nasal Cannula 2.0 05/26/19 20:00 98.2 105 22 130/74 (92) 100 05/26/19 20:00 2.0 05/26/19 20:00 130 Intake and Output 05/26/19 05/27/19 19:00 07:00 Intake Total 120 ml 150 ml Output Total 2500 ml Balance -2380 ml 150 ml Intake Oral 120 ml 150 ml Hemodialysis UF 2500 ml # Bowel Movements 4 Microbiology Date/Time Source Procedure Growth Status 05/26/19 13:00 Stool Stool Culture - Preliminary NORMAL FECAL RAJ. Resulted 05/26/19 13:00 Stool Clostridium difficile Toxin Assay - Final Complete Laboratory Tests 05/27/19 06:50: White Blood Count 8.5, Red Blood Count 3.57L, Hemoglobin 10.5L, Hematocrit 34.9L , Mean Corpuscular Volume 98, Mean Corpuscular Hemoglobin 29.3, Mean Corpuscular Hemoglobin Concent 30.0L, Red Cell Distribution Width 15.9H, Platelet Count 191, Mean Platelet Volume 5.7L, Neutrophils (%) (Auto) 68.0, Lymphocytes (%) (Auto) 16.6L, Monocytes (%) (Auto) 10.1H, Eosinophils (%) (Auto ) 4.4H, Basophils (%) (Auto) 0.9, Sodium Level 140, Potassium Level 4.5, Chloride Level 104, Carbon Dioxide Level 29, Anion Gap 7, Blood Urea Nitrogen 17 , Creatinine 5.5H, Estimat Glomerular Filtration Rate 12.5, Glucose Level 95, Hemoglobin A1c 6.0, Calcium Level 8.4L 05/27/19 09:35: Prothrombin Time 48.6H, Prothromb Time International Ratio 5.0H Current Medications Medications (Trade) Dose Ordered Sig/Divya Route PRN Reason Start Time Stop Time Status Last Admin Dose Admin Acetaminophen (Tylenol) 650 mg Q4H PRN ORAL Mild Pain (Pain Scale 1-3) 05/23/19 18:15 06/22/19 18:14 Acetaminophen (Tylenol) 650 mg Q4H PRN ORAL fever (temp>100.5F) 05/23/19 18:15 06/22/19 18:14 Albuterol/ Ipratropium (Albuterol/ Ipratropium) 3 ml Q4HRT HHN 05/24/19 03:00 05/29/19 02:59 05/27/19 19:27 Albuterol/ Ipratropium (Albuterol/ Ipratropium) 3 ml Q6H PRN HHN Shortness of Breath 05/23/19 18:15 05/28/19 18:14 Aripiprazole (Abilify) 15 mg DAILY ORAL 05/24/19 09:00 06/23/19 08:59 05/27/19 10:34 Atorvastatin Calcium (Lipitor) 40 mg QHS ORAL 05/25/19 21:00 06/23/19 08:59 05/26/19 21:19 Carvedilol (Coreg) 25 mg EVERY 12 HOURS ORAL 05/27/19 21:00 06/23/19 20:59 Ceftriaxone Sodium 1 gm/ Dextrose 55 ml @ 110 mls/hr Q24H IVPB 05/24/19 18:00 05/31/19 17:59 05/27/19 18:04 Dextrose (Dextrose 50%) 25 ml Q30M PRN IV Hypoglycemia 05/23/19 18:15 06/22/19 18:14 Dextrose (Dextrose 50%) 50 ml Q30M PRN IV Hypoglycemia 05/23/19 18:15 06/22/19 18:14 Diphenhydramine HCl (Benadryl) 25 mg Q6H PRN ORAL Itching/Pruritis 05/23/19 18:15 06/22/19 18:14 Docusate Sodium (Colace) 100 mg THREE TIMES A DAY ORAL 05/24/19 13:00 06/23/19 12:59 05/27/19 18:04 Hydromorphone HCl (Dilaudid) 0.5 mg Q6H PRN IVP Severe Pain (Pain Scale 7-10) 05/23/19 18:15 05/30/19 18:14 Isosorbide Mononitrate (Imdur) 60 mg DAILY ORAL 05/24/19 09:00 06/23/19 08:59 05/27/19 10:34 Lisinopril (Zestril) 10 mg DAILY ORAL 05/26/19 09:00 06/23/19 08:59 05/27/19 10:34 Lorazepam (Ativan) 1 mg Q4H PRN ORAL For Anxiety 05/23/19 18:15 05/30/19 18:14 05/27/19 01:42 Metoclopramide HCl (Reglan) 10 mg Q6H PRN IVP Nausea & Vomiting 05/23/19 18:15 06/22/19 18:14 Mupirocin (Bactroban Oint) 1 applic BID TOPIC 05/26/19 11:00 05/30/19 18:01 05/27/19 18:03 Ondansetron HCl (Zofran) 4 mg Q6H PRN IVP Nausea & Vomiting 05/23/19 18:15 06/22/19 18:14 Pantoprazole (Protonix) 40 mg EVERY 12 HOURS ORAL 05/24/19 21:00 06/23/19 20:59 05/27/19 10:35 Prochlorperazine (Compazine) 10 mg Q6H PRN IVP Nausea & Vomiting 05/23/19 18:15 06/22/19 18:14 Sertraline HCl (Zoloft) 50 mg DAILY ORAL 05/24/19 09:00 06/23/19 08:59 05/27/19 10:33 Sevelamer Carbonate (Renvela) 1,600 mg THREE TIMES A DAY ORAL 05/24/19 13:00 06/23/19 08:59 05/27/19 18:04 Temazepam (Restoril) 15 mg HSPRN PRN ORAL Insomnia 05/23/19 18:15 05/30/19 18:14 05/26/19 21:19 Vitamin B Complex/ Vit C/Folic Acid (Nephrovite) 1 tab DAILY ORAL 05/24/19 09:00 06/23/19 08:59 05/27/19 10:33 Navneet Bond MD May 27, 2019 19:54
[2019-05-27 20:00] VITALS: BP 121/68
[2019-05-27] MEDS: Atorvastatin 20mg tab ORAL SCH (21:42)
[2019-05-27] MEDS: Carvedilol 25mg Tab ORAL SCH (21:43)
--- NOTE | 2019-05-27 21:51 | General Progress Note ---
Assessment/Plan Status: stable Assessment/Plan: Assessment - CVA / AMS / Delirium - compromised swallow - elevated INR - COPD - CHF, reduced EF Recommendations - Will d/w family re PEG - will place feeding tube once INR corrected - aspiration precautions - Elevate HOB Thank you Lara La MD Subjective Allergies: Coded Allergies: No Known Allergies (Verified , 07/21/11) Objective Last 24 Hour Vital Signs Date Time Temp Pulse Resp B/P (MAP) Pulse Ox O2 Delivery O2 Flow Rate FiO2 05/27/19 21:43 110 123/65 05/27/19 19:36 75 20 100 Nasal Cannula 2.0 28 05/27/19 19:27 98 Nasal Cannula 2.0 28 05/27/19 19:27 72 20 98 Nasal Cannula 2.0 28 05/27/19 16:00 98.1 117 18 116/75 (89) 20 05/27/19 16:00 128 05/27/19 16:00 2.0 05/27/19 15:11 84 20 100 Nasal Cannula 2.0 05/27/19 15:00 80 20 98 Nasal Cannula 2.0 28 05/27/19 14:09 137 05/27/19 12:00 2.0 05/27/19 12:00 97.6 108 18 126/71 (89) 96 05/27/19 12:00 137 05/27/19 10:34 145/83 05/27/19 10:34 145/83 05/27/19 10:19 90 20 100 Nasal Cannula 2.0 05/27/19 10:08 84 18 98 Nasal Cannula 2.0 05/27/19 09:00 Nasal Cannula 2.0 05/27/19 08:00 2.0 05/27/19 08:00 97.9 109 18 145/83 (103) 96 05/27/19 08:00 116 05/27/19 06:37 94 20 100 Nasal Cannula 2.0 05/27/19 06:28 90 20 99 Nasal Cannula 2.0 05/27/19 06:28 99 Nasal Cannula 2.0 28 05/27/19 04:00 2.0 05/27/19 04:00 96 05/27/19 04:00 97.9 96 20 143/83 (103) 96 05/27/19 02:50 120 20 100 Nasal Cannula 2.0 19 02:41 117 22 100 Nasal Cannula 2.0 28 05/27/19 00:00 96.8 103 21 134/66 (88) 97 05/27/19 00:00 103 05/26/19 23:36 102 16 100 Nasal Cannula 2.0 28 05/26/19 23:28 107 18 99 Nasal Cannula 2.0 28 Intake and Output 05/26/19 05/27/19 19:00 07:00 Intake Total 120 ml 150 ml Output Total 2500 ml Balance -2380 ml 150 ml Intake Oral 120 ml 150 ml Hemodialysis UF 2500 ml # Bowel Movements 4 Laboratory Tests 05/27/19 06:50: White Blood Count 8.5, Red Blood Count 3.57L, Hemoglobin 10.5L, Hematocrit 34.9L , Mean Corpuscular Volume 98, Mean Corpuscular Hemoglobin 29.3, Mean Corpuscular Hemoglobin Concent 30.0L, Red Cell Distribution Width 15.9H, Platelet Count 191, Mean Platelet Volume 5.7L, Neutrophils (%) (Auto) 68.0, Lymphocytes (%) (Auto) 16.6L, Monocytes (%) (Auto) 10.1H, Eosinophils (%) (Auto ) 4.4H, Basophils (%) (Auto) 0.9, Sodium Level 140, Potassium Level 4.5, Chloride Level 104, Carbon Dioxide Level 29, Anion Gap 7, Blood Urea Nitrogen 17 , Creatinine 5.5H, Estimat Glomerular Filtration Rate 12.5, Glucose Level 95, Hemoglobin A1c 6.0, Calcium Level 8.4L 05/27/19 09:35: Prothrombin Time 48.6H, Prothromb Time International Ratio 5.0H Height (Feet): 5 Height (Inches): 10.00 Weight (Pounds): 188 Lara La MD May 27, 2019 21:51
[2019-05-28] VITALS: BP_SYST 142; BP_SYST 160; BP_DIAS 92; BP_DIAS 99
[2019-05-28] MEDS: Albuterol/Ipratropium 3ml neb HHN SCH ×6 (02:59→23:26)
[2019-05-28 04:00] VITALS: BP_SYST 125; BP_SYST 150; BP_DIAS 61; BP_DIAS 90
--- NOTE | 2019-05-28 07:26 | NUR ---
HAND-OFF: Report given to KALEIGH Heller. Endorsed plan of care.
--- NOTE | 2019-05-28 07:26 | NUR ---
NURSE NOTES: Report received from KALEIGH Dietz. Patient asleep comfortably. In 2LNC. No breathing distress noticed. Bed on lowest position, side rails upx3, brakes engaged, alarm on. Call light within easy reach.
[2019-05-28 07:30] LABS: ALANINE AMINOTRANSFERASE 6 U/L (12-78); ALBUMIN 1.8 G/DL (3.4-5.0); ALBUMIN/GLOBULIN RATIO 0.4 (1.0-2.7); ALKALINE PHOSPHATASE 172 U/L (46-116); ANION GAP 7 mmol/L (5-15); ASPARTATE AMINO TRANSFERASE 16 U/L (15-37); BASOPHILS % (AUTO) 0.6 % (0.0-2.0); BILIRUBIN,TOTAL 0.4 MG/DL (0.2-1.0); BLOOD UREA NITROGEN 23 mg/dL (7-18); CALCIUM 8.5 MG/DL (8.5-10.1); CARBON DIOXIDE 29 MMOL/L (21-32); CHLORIDE 103 MMOL/L (98-107); CREATININE 6.8 MG/DL (0.55-1.30); EOSINOPHILS % (AUTO) 3.8 % (0.0-3.0); HEMATOCRIT 30.9 % (42.0-52.0); HEMOGLOBIN 9.3 G/DL (14.2-18.0); LYMPHOCYTES % (AUTO) 19.4 % (20.0-45.0); MEAN CORPUSCULAR VOLUME 97 FL (80-99); NEUTROPHILS % (AUTO) 67.2 % (45.0-75.0); PHOSPHORUS 4.2 MG/DL (2.5-4.9); PLATELET COUNT 186 K/UL (150-450); POTASSIUM 4.6 MMOL/L (3.5-5.1); RED BLOOD COUNT 3.18 M/UL (4.70-6.10); RED CELL DISTRIBUTION WIDTH 15.6 % (11.6-14.8); SODIUM 139 MMOL/L (136-145); WHITE BLOOD COUNT 9.3 K/UL (4.8-10.8)
[2019-05-28 08:00] VITALS: BP 125/67
[2019-05-28 08:11] LABS: INR 5.5 (0.9-1.1)
[2019-05-28] MEDS: Imdur 30mg tab ORAL SCH (09:00)
[2019-05-28] MEDS: Carvedilol 25mg Tab ORAL SCH ×2 (09:00→21:53)
[2019-05-28] MEDS: Lisinopril 10mg tab ORAL SCH (09:00)
[2019-05-28] MEDS: Docusate 100mg cap ORAL SCH ×3 (09:00→18:02)
--- NOTE | 2019-05-28 09:41 | Cardiology Progress Note ---
Assessment/Plan Status: stable Assessment/Plan Assessment/Plan Assessment/Plan 1. Wide complex tachycardia. Atrial fibrillation No evidence of pre excitation His echocardiogram showed EF of 40 to 45 percent. Increase coreg to 25 mg BID D/c digoxin in light of renal disease and hyperkalemia 2. Elevated INR Hold coumadin per pharmacy PEG tube to be placed when INR <2 3. Hypertension. Continue current medical therapy. 4. Congestive heart failure with EF of 40 to 45 percent Multifactorial Ischemia evaluation when stable due to risk factors 5. COPD. stable 6. UTI. On antibiotics. 7. End-stage renal disease, on hemodialysis. Subjective Cardiovascular: Reports: no symptoms Respiratory: Reports: no symptoms Gastrointestinal/Abdominal: Reports: no symptoms Genitourinary: Reports: no symptoms Subjective Coverage for [place] Remains tachycardic but rates better controlled, BP stable, no acute events, no distress, nursing notes reviewed, d/w Internal medicine INR 5.5 today Objective Last 24 Hour Vital Signs Date Time Temp Pulse Resp B/P (MAP) Pulse Ox O2 Delivery O2 Flow Rate FiO2 05/28/19 08:00 97.2 82 20 125/67 (86) 98 05/28/19 08:00 82 05/28/19 07:22 98 20 99 Nasal Cannula 2.0 28 05/28/19 07:07 99 Nasal Cannula 2.0 28 05/28/19 07:05 83 16 99 Nasal Cannula 2.0 28 05/28/19 04:00 97.9 88 20 125/61 (82) 98 05/28/19 04:00 88 05/28/19 04:00 2.0 05/28/19 03:09 98 20 99 Nasal Cannula 2.0 28 05/28/19 02:59 97 20 98 Nasal Cannula 2.0 28 05/28/19 00:00 97.8 129 20 160/99 (119) 100 05/28/19 00:00 129 05/27/19 23:20 100 20 99 Nasal Cannula 2.0 28 05/27/19 23:10 103 20 99 Nasal Cannula 2.0 28 05/27/19 21:43 110 123/65 05/27/19 21:00 Nasal Cannula 2.0 05/27/19 20:00 129 05/27/19 20:00 97.7 129 20 121/68 (85) 98 05/27/19 20:00 2.0 05/27/19 19:36 75 20 100 Nasal Cannula 2.0 28 05/27/19 19:27 98 Nasal Cannula 2.0 28 05/27/19 19:27 72 20 98 Nasal Cannula 2.0 28 05/27/19 16:00 98.1 117 18 116/75 (89) 20 05/27/19 16:00 128 05/27/19 16:00 2.0 05/27/19 15:11 84 20 100 Nasal Cannula 2.0 28 05/27/19 15:00 80 20 98 Nasal Cannula 2.0 28 05/27/19 14:09 137 05/27/19 12:00 2.0 05/27/19 12:00 97.6 108 18 126/71 (89) 96 05/27/19 12:00 137 05/27/19 10:34 145/83 05/27/19 10:34 145/83 05/27/19 10:19 90 20 100 Nasal Cannula 2.0 28 05/27/19 10:08 84 18 98 Nasal Cannula 2.0 28 General Appearance: no apparent distress, alert EENT: PERRL/EOMI, normal ENT inspection, TMs normal, pharynx normal Neck: non-tender, supple, normal inspection Rhythm: Afib Cardiovascular: regularly irregular, tachycardia Respiratory/Chest: chest wall non-tender, lungs clear, normal breath sounds, no respiratory distress, no accessory muscle use, respiratory distress Abdomen: normal bowel sounds, non tender, soft, no organomegaly, no mass Extremities: normal range of motion, non-tender, normal inspection, no calf tenderness, no swelling Neurologic: rn bariatric II-XII grossly normal, no motor/sensory deficits Intake and Output 05/27/19 05/28/19 19:00 07:00 Intake Total 360 ml Balance 360 ml Intake Oral 360 ml # Voids 2 # Bowel Movements 1 Laboratory Tests Test 05/28/19 05:55 White Blood Count 9.3 K/UL (4.8-10.8) Red Blood Count 3.18 M/UL (4.70-6.10) L Hemoglobin 9.3 G/DL (14.2-18.0) L Hematocrit 30.9 % (42.0-52.0) L Mean Corpuscular Volume 97 FL (80-99) Mean Corpuscular Hemoglobin 29.2 PG (27.0-31.0) Mean Corpuscular Hemoglobin Concent 30.1 G/DL (32.0-36.0) L Red Cell Distribution Width 15.6 % (11.6-14.8) H Platelet Count 186 K/UL (150-450) Mean Platelet Volume 5.5 FL (6.5-10.1) L Neutrophils (%) (Auto) 67.2 % (45.0-75.0) Lymphocytes (%) (Auto) 19.4 % (20.0-45.0) L Monocytes (%) (Auto) 9.0 % (1.0-10.0) Eosinophils (%) (Auto) 3.8 % (0.0-3.0) H Basophils (%) (Auto) 0.6 % (0.0-2.0) Prothrombin Time 53.0 SEC (9.30-11.50) H Prothromb Time International Ratio 5.5 (0.9-1.1) *H Sodium Level 139 MMOL/L (136-145) Potassium Level 4.6 MMOL/L (3.5-5.1) Chloride Level 103 MMOL/L (98-107) Carbon Dioxide Level 29 MMOL/L (21-32) Anion Gap 7 mmol/L (5-15) Blood Urea Nitrogen 23 mg/dL (7-18) H Creatinine 6.8 MG/DL (0.55-1.30) H Estimat Glomerular Filtration Rate 9.8 mL/min (>60) Glucose Level 117 MG/DL (74-106) H Uric Acid 7.1 MG/DL (2.6-7.2) Calcium Level 8.5 MG/DL (8.5-10.1) Phosphorus Level 4.2 MG/DL (2.5-4.9) Magnesium Level 2.1 MG/DL (1.8-2.4) Total Bilirubin 0.4 MG/DL (0.2-1.0) Aspartate Amino Transf (AST/SGOT) 16 U/L (15-37) Alanine Aminotransferase (ALT/SGPT) 6 U/L (12-78) L Alkaline Phosphatase 172 U/L (46-116) H C-Reactive Protein, Quantitative 15.4 mg/dL (0.00-0.90) H Pro-B-Type Natriuretic Peptide 43405 pg/mL (0-125) H Total Protein 6.6 G/DL (6.4-8.2) Albumin 1.8 G/DL (3.4-5.0) L Globulin 4.8 g/dL Albumin/Globulin Ratio 0.4 (1.0-2.7) L Digoxin Level 1.0 NG/ML (0.5-2.0) Microbiology Date/Time Source Procedure Growth Status 05/26/19 13:00 Stool Stool Culture - Preliminary NORMAL FECAL RAJ. Resulted 05/26/19 13:00 Stool Clostridium difficile Toxin Assay - Final Complete Navneet Villegas MD May 28, 2019 09:41
[2019-05-28] MEDS: Sertraline 50mg tab ORAL SCH (09:57)
[2019-05-28] MEDS: Nephrovite tab (Rena-Vite) ORAL SCH (09:57)
--- NOTE | 2019-05-28 10:03 | General Progress Note ---
Assessment/Plan Status: stable Assessment/Plan: Assessment - CVA / AMS / Delirium - compromised swallow - elevated INR - COPD - CHF, reduced EF Recommendations - Will d/w family re PEG - will place feeding tube once INR corrected - aspiration precautions - Elevate HOB Subjective Allergies: Coded Allergies: No Known Allergies (Verified , 07/21/11) Subjective above noted awake minimally interactive unable to contact family at this time Objective Last 24 Hour Vital Signs Date Time Temp Pulse Resp B/P (MAP) Pulse Ox O2 Delivery O2 Flow Rate FiO2 05/28/19 08:00 97.2 82 20 125/67 (86) 98 05/28/19 08:00 82 05/28/19 07:22 98 20 99 Nasal Cannula 2.0 28 05/28/19 07:07 99 Nasal Cannula 2.0 28 05/28/19 07:05 83 16 99 Nasal Cannula 2.0 28 05/28/19 04:00 97.9 88 20 125/61 (82) 98 05/28/19 04:00 88 05/28/19 04:00 2.0 05/28/19 03:09 98 20 99 Nasal Cannula 2.0 28 05/28/19 02:59 97 20 98 Nasal Cannula 2.0 28 05/28/19 00:00 97.8 129 20 160/99 (119) 100 05/28/19 00:00 129 05/27/19 23:20 100 20 99 Nasal Cannula 2.0 28 05/27/19 23:10 103 20 99 Nasal Cannula 2.0 28 05/27/19 21:43 110 123/65 05/27/19 21:00 Nasal Cannula 2.0 05/27/19 20:00 129 05/27/19 20:00 97.7 129 20 121/68 (85) 98 05/27/19 20:00 2.0 05/27/19 19:36 75 20 100 Nasal Cannula 2.0 28 05/27/19 19:27 98 Nasal Cannula 2.0 28 05/27/19 19:27 72 20 98 Nasal Cannula 2.0 28 05/27/19 16:00 98.1 117 18 116/75 (89) 20 05/27/19 16:00 128 05/27/19 16:00 2.0 05/27/19 15:11 84 20 100 Nasal Cannula 2.0 28 05/27/19 15:00 80 20 98 Nasal Cannula 2.0 28 05/27/19 14:09 137 05/27/19 12:00 2.0 05/27/19 12:00 97.6 108 18 126/71 (89) 96 05/27/19 12:00 137 05/27/19 10:34 145/83 05/27/19 10:34 145/83 05/27/19 10:19 90 20 100 Nasal Cannula 2.0 28 05/27/19 10:08 84 18 98 Nasal Cannula 2.0 28 Intake and Output 05/27/19 05/28/19 19:00 07:00 Intake Total 360 ml Balance 360 ml Intake Oral 360 ml # Voids 2 # Bowel Movements 1 Laboratory Tests 05/28/19 05:55: White Blood Count 9.3, Red Blood Count 3.18L, Hemoglobin 9.3L, Hematocrit 30.9L , Mean Corpuscular Volume 97, Mean Corpuscular Hemoglobin 29.2, Mean Corpuscular Hemoglobin Concent 30.1L, Red Cell Distribution Width 15.6H, Platelet Count 186, Mean Platelet Volume 5.5L, Neutrophils (%) (Auto) 67.2, Lymphocytes (%) (Auto) 19.4L, Monocytes (%) (Auto) 9.0, Eosinophils (%) (Auto) 3.8H, Basophils (%) (Auto) 0.6, Prothrombin Time 53.0H, Prothromb Time International Ratio 5.5*H, Sodium Level 139, Potassium Level 4.6, Chloride Level 103, Carbon Dioxide Level 29, Anion Gap 7, Blood Urea Nitrogen 23H, Creatinine 6.8H, Estimat Glomerular Filtration Rate 9.8, Glucose Level 117H, Uric Acid 7.1, Calcium Level 8.5, Phosphorus Level 4.2, Magnesium Level 2.1, Total Bilirubin 0.4, Aspartate Amino Transf (AST/SGOT) 16, Alanine Aminotransferase (ALT/SGPT) 6L, Alkaline Phosphatase 172H, C-Reactive Protein, Quantitative 15.4H, Pro-B-Type Natriuretic Peptide 04892O, Total Protein 6.6, Albumin 1.8L, Globulin 4.8, Albumin/Globulin Ratio 0.4L, Digoxin Level 1.0 Height (Feet): 5 Height (Inches): 10.00 Weight (Pounds): 195 Objective WDWn obese AA man NCAT supple CTA RRR abd soft no edema Lara La MD May 28, 2019 10:03
--- NOTE | 2019-05-28 11:45 | Nephrology Progress Note ---
Assessment/Plan Problem List: (1) ESRF (end stage renal failure) (2) Cardiomyopathy (3) COPD (chronic obstructive pulmonary disease) (4) Anemia Assessment presents with SOB: CHF vs COPD Exacerbation ESRD CHF with previous Echo showing Ej Fx 40 % h/o At fib DM HTN Anemia COPD recent ear infection Plan HD next Optimize cardiac condition BP and BS check and control Discussed with Dr Chucky Hayes and Dig adjust mind altering meds per PMD per orders med surg?? Subjective ROS Limited/Unobtainable: No Constitutional: Reports: weakness Objective Objective Last 24 Hour Vital Signs Date Time Temp Pulse Resp B/P (MAP) Pulse Ox O2 Delivery O2 Flow Rate FiO2 05/28/19 08:00 97.2 82 20 125/67 (86) 98 05/28/19 08:00 82 05/28/19 07:22 98 20 99 Nasal Cannula 2.0 28 05/28/19 07:07 99 Nasal Cannula 2.0 28 05/28/19 07:05 83 16 99 Nasal Cannula 2.0 28 05/28/19 04:00 97.9 88 20 125/61 (82) 98 05/28/19 04:00 88 05/28/19 04:00 2.0 05/28/19 03:09 98 20 99 Nasal Cannula 2.0 28 05/28/19 02:59 97 20 98 Nasal Cannula 2.0 28 05/28/19 00:00 97.8 129 20 160/99 (119) 100 05/28/19 00:00 129 05/27/19 23:20 100 20 99 Nasal Cannula 2.0 28 05/27/19 23:10 103 20 99 Nasal Cannula 2.0 28 05/27/19 21:43 110 123/65 05/27/19 21:00 Nasal Cannula 2.0 05/27/19 20:00 129 05/27/19 20:00 97.7 129 20 121/68 (85) 98 05/27/19 20:00 2.0 05/27/19 19:36 75 20 100 Nasal Cannula 2.0 28 05/27/19 19:27 98 Nasal Cannula 2.0 28 05/27/19 19:27 72 20 98 Nasal Cannula 2.0 28 05/27/19 16:00 98.1 117 18 116/75 (89) 20 05/27/19 16:00 128 05/27/19 16:00 2.0 05/27/19 15:11 84 20 100 Nasal Cannula 2.0 28 05/27/19 15:00 80 20 98 Nasal Cannula 2.0 28 05/27/19 14:09 137 05/27/19 12:00 2.0 05/27/19 12:00 97.6 108 18 126/71 (89) 96 05/27/19 12:00 137 Intake and Output 05/27/19 05/28/19 19:00 07:00 Intake Total 360 ml Balance 360 ml Intake Oral 360 ml # Voids 2 # Bowel Movements 1 Laboratory Tests 05/28/19 05:55: White Blood Count 9.3, Red Blood Count 3.18L, Hemoglobin 9.3L, Hematocrit 30.9L , Mean Corpuscular Volume 97, Mean Corpuscular Hemoglobin 29.2, Mean Corpuscular Hemoglobin Concent 30.1L, Red Cell Distribution Width 15.6H, Platelet Count 186, Mean Platelet Volume 5.5L, Neutrophils (%) (Auto) 67.2, Lymphocytes (%) (Auto) 19.4L, Monocytes (%) (Auto) 9.0, Eosinophils (%) (Auto) 3.8H, Basophils (%) (Auto) 0.6, Prothrombin Time 53.0H, Prothromb Time International Ratio 5.5*H, Sodium Level 139, Potassium Level 4.6, Chloride Level 103, Carbon Dioxide Level 29, Anion Gap 7, Blood Urea Nitrogen 23H, Creatinine 6.8H, Estimat Glomerular Filtration Rate 9.8, Glucose Level 117H, Uric Acid 7.1, Calcium Level 8.5, Phosphorus Level 4.2, Magnesium Level 2.1, Total Bilirubin 0.4, Aspartate Amino Transf (AST/SGOT) 16, Alanine Aminotransferase (ALT/SGPT) 6L, Alkaline Phosphatase 172H, C-Reactive Protein, Quantitative 15.4H, Pro-B-Type Natriuretic Peptide [id number], Total Protein 6.6, Albumin 1.8L, Globulin 4.8, Albumin/Globulin Ratio 0.4L, Digoxin Level 1.0 Height (Feet): 5 Height (Inches): 10.00 Weight (Pounds): 195 General Appearance: no apparent distress Objective no change Francisco Javier Abraham MD May 28, 2019 11:45
[2019-05-28 12:00] VITALS: BP 130/75
--- NOTE | 2019-05-28 12:03 | General Progress Note ---
Assessment/Plan Status: stable Assessment/Plan: 69 year oldrola a PMH of a fib on AC, ESRD on HD, anemia, htn, DM, COPD, HFPEF presented for acute hypoxemic respiratory failure # Acute Hypoxic Repiratory Failure likely 2/2 chf exacerbation - cardiac medications - echo with preserved EF 40-45 % - HD for fluid removal per Dr. Chen. HD 05/28 - RT - breathing treatments - Pulm Consult appreciated # Supratherapeutic INR - hold coumadin - vit k +/- FFP if patient bleeds - daily INR needed - Pharmacy to dose. # Hyponatremia likely hypervolemic from chf - HD - CTM # ESRD - HD by Nephrology, HD 05/28 # Afib with episodes of WCT and AF with aberrancy, Dr. Stone consultation appreciated. Dr. Villegas covering today.Digoxin was stopped and Carvedilol 25 mg BID - cardiac meds being adjusted. - hold coumadin # Iron deficiency anemia - iron replacement # UTI due to Enterococcus F - Per sensitivities only Ampicillin and Vancomycin are appropriate. - Stop CTX and start Vancomycin per pharmacy today # Dysphagia with aspiration risk - Discussed with ST - Dietary adjustment - Daily ST and adjustments as needed - GI consultation for PEG completed. 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 - Await recommendations. Likely not surgical intervention. # Full Code # Dispo- SNF (prior resident) - Request PT and OT evaluation for mobility Subjective ROS Limited/Unobtainable: Yes Allergies: Coded Allergies: No Known Allergies (Verified , 07/21/11) All Systems: reviewed and negative except above Subjective Reports feeling better today. Ate 50 % breakfast. Patient has not been out of bed since admission. Objective Last 24 Hour Vital Signs Date Time Temp Pulse Resp B/P (MAP) Pulse Ox O2 Delivery O2 Flow Rate FiO2 05/28/19 09:00 Nasal Cannula 2.0 05/28/19 08:00 97.2 82 20 125/67 (86) 98 05/28/19 08:00 82 05/28/19 07:22 98 20 99 Nasal Cannula 2.0 28 05/28/19 07:07 99 Nasal Cannula 2.0 28 05/28/19 07:05 83 16 99 Nasal Cannula 2.0 28 05/28/19 04:00 97.9 88 20 125/61 (82) 98 05/28/19 04:00 88 05/28/19 04:00 2.0 05/28/19 03:09 98 20 99 Nasal Cannula 2.0 28 05/28/19 02:59 97 20 98 Nasal Cannula 2.0 28 05/28/19 00:00 97.8 129 20 160/99 (119) 100 05/28/19 00:00 129 05/27/19 23:20 100 20 99 Nasal Cannula 2.0 28 05/27/19 23:10 103 20 99 Nasal Cannula 2.0 28 05/27/19 21:43 110 123/65 05/27/19 21:00 Nasal Cannula 2.0 05/27/19 20:00 129 05/27/19 20:00 97.7 129 20 121/68 (85) 98 05/27/19 20:00 2.0 05/27/19 19:36 75 20 100 Nasal Cannula 2.0 28 05/27/19 19:27 98 Nasal Cannula 2.0 28 05/27/19 19:27 72 20 98 Nasal Cannula 2.0 28 05/27/19 16:00 98.1 117 18 116/75 (89) 20 05/27/19 16:00 128 05/27/19 16:00 2.0 05/27/19 15:11 84 20 100 Nasal Cannula 2.0 28 05/27/19 15:00 80 20 98 Nasal Cannula 2.0 28 05/27/19 14:09 137 Intake and Output 05/27/19 05/28/19 19:00 07:00 Intake Total 360 ml Balance 360 ml Intake Oral 360 ml # Voids 2 # Bowel Movements 1 Laboratory Tests 05/28/19 05:55: White Blood Count 9.3, Red Blood Count 3.18L, Hemoglobin 9.3L, Hematocrit 30.9L , Mean Corpuscular Volume 97, Mean Corpuscular Hemoglobin 29.2, Mean Corpuscular Hemoglobin Concent 30.1L, Red Cell Distribution Width 15.6H, Platelet Count 186, Mean Platelet Volume 5.5L, Neutrophils (%) (Auto) 67.2, Lymphocytes (%) (Auto) 19.4L, Monocytes (%) (Auto) 9.0, Eosinophils (%) (Auto) 3.8H, Basophils (%) (Auto) 0.6, Prothrombin Time 53.0H, Prothromb Time International Ratio 5.5*H, Sodium Level 139, Potassium Level 4.6, Chloride Level 103, Carbon Dioxide Level 29, Anion Gap 7, Blood Urea Nitrogen 23H, Creatinine 6.8H, Estimat Glomerular Filtration Rate 9.8, Glucose Level 117H, Uric Acid 7.1, Calcium Level 8.5, Phosphorus Level 4.2, Magnesium Level 2.1, Total Bilirubin 0.4, Aspartate Amino Transf (AST/SGOT) 16, Alanine Aminotransferase (ALT/SGPT) 6L, Alkaline Phosphatase 172H, C-Reactive Protein, Quantitative 15.4H, Pro-B-Type Natriuretic Peptide 88589D, Total Protein 6.6, Albumin 1.8L, Globulin 4.8, Albumin/Globulin Ratio 0.4L, Digoxin Level 1.0 Height (Feet): 5 Height (Inches): 10.00 Weight (Pounds): 195 General Appearance: WD/WN EENT: PERRL/EOMI Cardiovascular: normal rate Respiratory/Chest: lungs clear Abdomen: non tender 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
--- NOTE | 2019-05-28 13:19 | Pulmonology Progress Note ---
Assessment/Plan Assessment/Plan Pulmonary Progress Note HPI Patient is a 69-year-old male with a history of Alzheimers Dementia, COPD, CHF with EF 25%, Hypertension, Pacemaker, CKD on HD, Previous CVA, chronic weakness , Diabetes, AO x1, presents with acute dyspnea, patient was at the convalescent house not taking his oxygen, he is oxygen dependent, has a history of COPD, he was hypoxic down to the low 80s, history is limited secondary to patient's dementia. 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 Allergies: No Known Allergies Past Medical History: Alzheimers Dementia, COPD, Hypertension, CHF with EF 25% , Pacemaker, CKD on HD, Previous CVA, chronic weakness, Diabetes All Other Systems: limited Physical Exam Vital Signs Noted General Appearance: no apparent distress, alert Head: normocephalic, atraumatic Eyes: bilateral eye PERRL, bilateral eye EOMI ENT: uvula midline, moist mucus membranes Neck: supple, thyroid normal, supple/symmetrical/no masses Respiratory: lungs clear, no respiratory distress, no retraction, no accessory muscle use, other - on non rebreather Cardiovascular: normal HS, normal peripheral pulses, no gallop, no murmur, tachycardia, irregular Gastrointestinal: non tender, soft, no guarding, no rebound Musculoskeletal: normal inspection Neurologic: awake, oriented x1, responsive Skin: no rash, warm/dry, no edema Impression: Dyspnea CHF with EF 25% HTN COPD Hypoxia - VQ negative for PE UTI (lower urinary tract infection) Alzheimer Dementia Plan - O2 PRN - HHN - IV Antibiotics for UTI - Monitor labs - PPX Laboratory Tests Noted EKG: Atrial fibrillation, rate 110, QTc 544, no acute ST elevations, normal axis Chest X-Ray: no consolidation, no pneumothorax, no acute cardiopulmonary disease Subjective ROS Limited/Unobtainable: No Allergies: Coded Allergies: No Known Allergies (Verified , 07/21/11) Objective Last 24 Hour Vital Signs Date Time Temp Pulse Resp B/P (MAP) Pulse Ox O2 Delivery O2 Flow Rate FiO2 05/28/19 12:41 84 18 99 Nasal Cannula 2.0 28 05/28/19 12:32 84 16 98 Nasal Cannula 2.0 28 05/28/19 09:00 84 125/67 05/28/19 09:00 125/67 05/28/19 09:00 125/67 05/28/19 09:00 Nasal Cannula 2.0 05/28/19 08:00 97.2 82 20 125/67 (86) 98 05/28/19 08:00 82 05/28/19 07:22 98 20 99 Nasal Cannula 2.0 28 05/28/19 07:07 99 Nasal Cannula 2.0 28 05/28/19 07:05 83 16 99 Nasal Cannula 2.0 28 05/28/19 04:00 97.9 88 20 125/61 (82) 98 05/28/19 04:00 88 05/28/19 04:00 2.0 05/28/19 03:09 98 20 99 Nasal Cannula 2.0 28 05/28/19 02:59 97 20 98 Nasal Cannula 2.0 28 05/28/19 00:00 97.8 129 20 160/99 (119) 100 05/28/19 00:00 129 05/27/19 23:20 100 20 99 Nasal Cannula 2.0 28 05/27/19 23:10 103 20 99 Nasal Cannula 2.0 28 05/27/19 21:43 110 123/65 05/27/19 21:00 Nasal Cannula 2.0 05/27/19 20:00 129 05/27/19 20:00 97.7 129 20 121/68 (85) 98 05/27/19 20:00 2.0 05/27/19 19:36 75 20 100 Nasal Cannula 2.0 28 05/27/19 19:27 98 Nasal Cannula 2.0 28 05/27/19 19:27 72 20 98 Nasal Cannula 2.0 28 05/27/19 16:00 98.1 117 18 116/75 (89) 20 05/27/19 16:00 128 05/27/19 16:00 2.0 05/27/19 15:11 84 20 100 Nasal Cannula 2.0 28 05/27/19 15:00 80 20 98 Nasal Cannula 2.0 28 05/27/19 14:09 137 Intake and Output 05/27/19 05/28/19 19:00 07:00 Intake Total 360 ml Balance 360 ml Intake Oral 360 ml # Voids 2 # Bowel Movements 1 Microbiology Date/Time Source Procedure Growth Status 05/26/19 13:00 Stool Stool Culture - Preliminary NORMAL FECAL RAJ. Resulted 05/26/19 13:00 Stool Clostridium difficile Toxin Assay - Final Complete Laboratory Tests 05/28/19 05:55: White Blood Count 9.3, Red Blood Count 3.18L, Hemoglobin 9.3L, Hematocrit 30.9L , Mean Corpuscular Volume 97, Mean Corpuscular Hemoglobin 29.2, Mean Corpuscular Hemoglobin Concent 30.1L, Red Cell Distribution Width 15.6H, Platelet Count 186, Mean Platelet Volume 5.5L, Neutrophils (%) (Auto) 67.2, Lymphocytes (%) (Auto) 19.4L, Monocytes (%) (Auto) 9.0, Eosinophils (%) (Auto) 3.8H, Basophils (%) (Auto) 0.6, Prothrombin Time 53.0H, Prothromb Time International Ratio 5.5*H, Sodium Level 139, Potassium Level 4.6, Chloride Level 103, Carbon Dioxide Level 29, Anion Gap 7, Blood Urea Nitrogen 23H, Creatinine 6.8H, Estimat Glomerular Filtration Rate 9.8, Glucose Level 117H, Uric Acid 7.1, Calcium Level 8.5, Phosphorus Level 4.2, Magnesium Level 2.1, Total Bilirubin 0.4, Aspartate Amino Transf (AST/SGOT) 16, Alanine Aminotransferase (ALT/SGPT) 6L, Alkaline Phosphatase 172H, C-Reactive Protein, Quantitative 15.4H, Pro-B-Type Natriuretic Peptide [id number], Total Protein 6.6, Albumin 1.8L, Globulin 4.8, Albumin/Globulin Ratio 0.4L, Digoxin Level 1.0 Current Medications Medications (Trade) Dose Ordered Sig/Divya Route PRN Reason Start Time Stop Time Status Last Admin Dose Admin Acetaminophen (Tylenol) 650 mg Q4H PRN ORAL Mild Pain (Pain Scale 1-3) 05/23/19 18:15 06/22/19 18:14 Acetaminophen (Tylenol) 650 mg Q4H PRN ORAL fever (temp>100.5F) 05/23/19 18:15 06/22/19 18:14 Albuterol/ Ipratropium (Albuterol/ Ipratropium) 3 ml Q4HRT HHN 05/24/19 03:00 05/29/19 02:59 05/28/19 12:29 Albuterol/ Ipratropium (Albuterol/ Ipratropium) 3 ml Q6H PRN HHN Shortness of Breath 05/23/19 18:15 05/28/19 18:14 Aripiprazole (Abilify) 15 mg DAILY ORAL 05/24/19 09:00 06/23/19 08:59 05/28/19 09:58 Atorvastatin Calcium (Lipitor) 40 mg QHS ORAL 05/25/19 21:00 06/23/19 08:59 05/27/19 21:42 Carvedilol (Coreg) 25 mg EVERY 12 HOURS ORAL 05/27/19 21:00 06/23/19 20:59 05/27/19 21:43 Dextrose (Dextrose 50%) 25 ml Q30M PRN IV Hypoglycemia 05/23/19 18:15 06/22/19 18:14 Dextrose (Dextrose 50%) 50 ml Q30M PRN IV Hypoglycemia 05/23/19 18:15 06/22/19 18:14 Diphenhydramine HCl (Benadryl) 25 mg Q6H PRN ORAL Itching/Pruritis 05/23/19 18:15 06/22/19 18:14 Docusate Sodium (Colace) 100 mg THREE TIMES A DAY ORAL 05/24/19 13:00 06/23/19 12:59 05/27/19 18:04 Hydromorphone HCl (Dilaudid) 0.5 mg Q6H PRN IVP Severe Pain (Pain Scale 7-10) 05/23/19 18:15 05/30/19 18:14 Isosorbide Mononitrate (Imdur) 60 mg DAILY ORAL 05/24/19 09:00 06/23/19 08:59 05/27/19 10:34 Lisinopril (Zestril) 10 mg DAILY ORAL 05/26/19 09:00 06/23/19 08:59 05/27/19 10:34 Lorazepam (Ativan) 1 mg Q4H PRN ORAL For Anxiety 05/23/19 18:15 05/30/19 18:14 05/27/19 01:42 Metoclopramide HCl (Reglan) 10 mg Q6H PRN IVP Nausea & Vomiting 05/23/19 18:15 06/22/19 18:14 Mupirocin (Bactroban Oint) 1 applic BID TOPIC 05/26/19 11:00 05/30/19 18:01 05/28/19 10:00 Ondansetron HCl (Zofran) 4 mg Q6H PRN IVP Nausea & Vomiting 05/23/19 18:15 06/22/19 18:14 Pantoprazole (Protonix) 40 mg EVERY 12 HOURS ORAL 05/24/19 21:00 06/23/19 20:59 05/28/19 09:57 Prochlorperazine (Compazine) 10 mg Q6H PRN IVP Nausea & Vomiting 05/23/19 18:15 06/22/19 18:14 Sertraline HCl (Zoloft) 50 mg DAILY ORAL 05/24/19 09:00 06/23/19 08:59 05/28/19 09:57 Sevelamer Carbonate (Renvela) 1,600 mg THREE TIMES A DAY ORAL 05/24/19 13:00 06/23/19 08:59 05/28/19 12:19 Temazepam (Restoril) 15 mg HSPRN PRN ORAL Insomnia 05/23/19 18:15 05/30/19 18:14 05/26/19 21:19 Vancomycin HCl (Vanco rx to dose) 1 ea DAILY PRN MISC Per rx protocol 05/28/19 12:00 06/27/19 11:59 Vancomycin HCl/ Dextrose 275 ml @ 137.5 mls/ hr ONCE IVPB 05/28/19 15:00 05/28/19 17:00 Vitamin B Complex/ Vit C/Folic Acid (Nephrovite) 1 tab DAILY ORAL 05/24/19 09:00 06/23/19 08:59 05/28/19 09:57 Navneet Bond MD May 28, 2019 13:19
--- NOTE | 2019-05-28 14:17 | Consultation ---
Consult Note Assessment/Plan A/ 1) Gangrene left 4th toe 2) DM 2 3) ESRD 4) CHF P 1) Recommend vasc consult 2) Will order wound care, X-ray left foot 3) Need vascular and medical clearance prior to toe amputation Will follow Thank you Indio Griffin DPM May 28, 2019 14:17
--- NOTE | 2019-05-28 14:19 | Surgery Progress Note ---
Surgery Progress Note Subjective Additional Comments no acute events podiatry input noted INR 5 labs noted exam unchanged Objective Last 24 Hour Vital Signs Date Time Temp Pulse Resp B/P (MAP) Pulse Ox O2 Delivery O2 Flow Rate FiO2 05/28/19 12:41 84 18 99 Nasal Cannula 2.0 28 05/28/19 12:32 84 16 98 Nasal Cannula 2.0 28 05/28/19 12:00 97.1 84 20 130/75 (93) 97 05/28/19 12:00 84 05/28/19 09:00 84 125/67 05/28/19 09:00 125/67 05/28/19 09:00 125/67 05/28/19 09:00 Nasal Cannula 2.0 05/28/19 08:00 97.2 82 20 125/67 (86) 98 05/28/19 08:00 82 05/28/19 07:22 98 20 99 Nasal Cannula 2.0 28 05/28/19 07:07 99 Nasal Cannula 2.0 28 05/28/19 07:05 83 16 99 Nasal Cannula 2.0 28 05/28/19 04:00 97.9 88 20 125/61 (82) 98 05/28/19 04:00 88 05/28/19 04:00 2.0 05/28/19 03:09 98 20 99 Nasal Cannula 2.0 28 05/28/19 02:59 97 20 98 Nasal Cannula 2.0 28 05/28/19 00:00 97.8 129 20 160/99 (119) 100 05/28/19 00:00 129 05/27/19 23:20 100 20 99 Nasal Cannula 2.0 28 05/27/19 23:10 103 20 99 Nasal Cannula 2.0 28 05/27/19 21:43 110 123/65 05/27/19 21:00 Nasal Cannula 2.0 05/27/19 20:00 129 05/27/19 20:00 97.7 129 20 121/68 (85) 98 05/27/19 20:00 2.0 05/27/19 19:36 75 20 100 Nasal Cannula 2.0 28 05/27/19 19:27 98 Nasal Cannula 2.0 28 05/27/19 19:27 72 20 98 Nasal Cannula 2.0 28 05/27/19 16:00 98.1 117 18 116/75 (89) 20 05/27/19 16:00 128 05/27/19 16:00 2.0 05/27/19 15:11 84 20 100 Nasal Cannula 2.0 28 05/27/19 15:00 80 20 98 Nasal Cannula 2.0 28 I&O Intake and Output 05/27/19 05/28/19 19:00 07:00 Intake Total 360 ml Balance 360 ml Intake Oral 360 ml # Voids 2 # Bowel Movements 1 Dressing: dry Drains: other Cardiovascular: RSR Respiratory: clear Abdomen: soft, present bowel sounds Extremities: cyanosis Laboratory Tests Test 05/28/19 05:55 White Blood Count 9.3 K/UL (4.8-10.8) Red Blood Count 3.18 M/UL (4.70-6.10) L Hemoglobin 9.3 G/DL (14.2-18.0) L Hematocrit 30.9 % (42.0-52.0) L Mean Corpuscular Volume 97 FL (80-99) Mean Corpuscular Hemoglobin 29.2 PG (27.0-31.0) Mean Corpuscular Hemoglobin Concent 30.1 G/DL (32.0-36.0) L Red Cell Distribution Width 15.6 % (11.6-14.8) H Platelet Count 186 K/UL (150-450) Mean Platelet Volume 5.5 FL (6.5-10.1) L Neutrophils (%) (Auto) 67.2 % (45.0-75.0) Lymphocytes (%) (Auto) 19.4 % (20.0-45.0) L Monocytes (%) (Auto) 9.0 % (1.0-10.0) Eosinophils (%) (Auto) 3.8 % (0.0-3.0) H Basophils (%) (Auto) 0.6 % (0.0-2.0) Prothrombin Time 53.0 SEC (9.30-11.50) H Prothromb Time International Ratio 5.5 (0.9-1.1) *H Sodium Level 139 MMOL/L (136-145) Potassium Level 4.6 MMOL/L (3.5-5.1) Chloride Level 103 MMOL/L (98-107) Carbon Dioxide Level 29 MMOL/L (21-32) Anion Gap 7 mmol/L (5-15) Blood Urea Nitrogen 23 mg/dL (7-18) H Creatinine 6.8 MG/DL (0.55-1.30) H Estimat Glomerular Filtration Rate 9.8 mL/min (>60) Glucose Level 117 MG/DL (74-106) H Uric Acid 7.1 MG/DL (2.6-7.2) Calcium Level 8.5 MG/DL (8.5-10.1) Phosphorus Level 4.2 MG/DL (2.5-4.9) Magnesium Level 2.1 MG/DL (1.8-2.4) Total Bilirubin 0.4 MG/DL (0.2-1.0) Aspartate Amino Transf (AST/SGOT) 16 U/L (15-37) Alanine Aminotransferase (ALT/SGPT) 6 U/L (12-78) L Alkaline Phosphatase 172 U/L (46-116) H C-Reactive Protein, Quantitative 15.4 mg/dL (0.00-0.90) H Pro-B-Type Natriuretic Peptide 22451 pg/mL (0-125) H Total Protein 6.6 G/DL (6.4-8.2) Albumin 1.8 G/DL (3.4-5.0) L Globulin 4.8 g/dL Albumin/Globulin Ratio 0.4 (1.0-2.7) L Digoxin Level 1.0 NG/ML (0.5-2.0) Plan Problems: (1) Gangrene of toe Assessment & Plan: Patient with two partial thickness pressure injuries sacral cleft (proximal)(L)0.4cm x (W)0.3cm. Base of wound moist and viable Non- blanching erythema without induration periwound. (distal at perianal ) (L)1.7cm x (W)0.5cm. Base of wound moist and viable. Borders macerated. Non-Blanching erythema without induration periwound. Non-blanching erythema with fluctuance noted to L heel . Non-blanching erythema with fluctuance noted to R heel. L 4th metatarsal is necrotic but dry . appreciate podiatry input plan for amputation after vascular and medical clearance INR elevated will monitor Recommendations: Necrotic L 4th metatarsal. etiology potentially vascular vs trauma. will order studies and work up. Apply Moisture Barrier Paste to Buttocks. Cover with Optifoam drsg . Change every 3 days and prn. Apply Cavilon Skin Barrier to both heels. Cover each heel with Optifoam drsg.Change every 7 days and PRN. Apply Betadine to L 4th metatarsal daily. Reposition at least every 2 hours or as tolerated. Off-load heels with pillow. Killian Doyle May 28, 2019 14:19
--- NOTE | 2019-05-28 14:58 | NUR ---
HAND-OFF: Report given to KALEIGH Francois. Patient in stable condition.
--- NOTE | 2019-05-28 14:58 | NUR ---
TRANSFER TO FLOOR: Patient transferred to [facility], per Dr. Babcock. Report given to KALEIGH Francois. Belongings and medications given to KALEIGH Francois. Pt. in stable condition.
[2019-05-28] MEDS ORDERED: Vancomycin 1.5gm Premix IVPB SCH (15:00)
[2019-05-28 16:00] VITALS: BP 128/65
--- NOTE | 2019-05-28 16:41 | Diagnostic Imaging Report ---
Indication: Left foot pain Technique: 3 views left foot Comparison: None Findings: There is lateral deviation of the first interphalangeal joint and mild hammertoe deformity of the second through fifth digits. No acute fractures. No dislocations. Bones appear osteoporotic. There are extensive vascular calcifications. No definite ulcers, osseous erosions, or osteolytic defects. Impression: Findings as noted. No definite acute process
[2019-05-28] MEDS: LORazepam 1mg tab ORAL PRN (18:02)
--- NOTE | 2019-05-28 18:30 | Consultation ---
DATE OF CONSULTATION: 05/28/2019 CONSULTING PHYSICIAN: Indio Griffin D.P.M. REQUESTING PHYSICIANS: 1. Dr. Saravia and. 2. Killian Doyle M.D. REASON FOR CONSULTATION: Gangrene of the left fourth toe. HISTORY OF PRESENT ILLNESS: The patient is a 69-year-old male, who was admitted to [facility] on May 23, 2019 for shortness of breath and respiratory failure. The patient currently is minimally verbal, confused, and history was obtained through chart review. PAST MEDICAL HISTORY: Significant for end-stage renal disease, on hemodialysis, anemia, hypertension, diabetes mellitus, COPD, CHF, and AFib. MEDICATIONS: Per DEC and include vancomycin and Bactroban ointment. Remaining per DEC. ALLERGIES: He has no known drug allergies. SOCIAL HISTORY: The patient resides in a long term facility. FAMILY HISTORY: Noncontributory. REVIEW OF SYSTEMS: Unobtainable. PHYSICAL EXAMINATION: VITAL SIGNS: Temperature is 97.1, respiration rate is 18, pulse is 84, blood pressure is 125/67, and saturating 99% on two liters. LOWER EXTREMITY PHYSICAL EXAM: Vascular, nonpalpable pedal pulses noted bilaterally. Feet are equally warm. No edema or cyanosis is noted. DERMATOLOGICAL: There is dry necrosis noted at the left fourth toe. No signs of acute infection are noted. There is no malodor. No purulence or drainage noted from the site. No periwound erythema is noted. The area is dry. Remaining skin integrity in bilateral feet and ankles are intact. MUSCULOSKELETAL: No gross deformities are noted. The patient currently is bed-bound. LABORATORY DATA: White blood cell count is 9.3, hemoglobin and hematocrit is 9.3 and 30.9, and platelet count is 186,000. BUN is 23 and creatinine is 6.8. Hemoglobin A1c is 6.0. Glucose is 117. Uric acid 7.1. Albumin is 1.8. INR 5.5. No lower extremity imaging is noted. ASSESSMENT: 1. Gangrene of the left fourth toe. 2. Diabetes mellitus. 3. End-stage renal disease. 4. Congestive heart failure. PLAN: 1. Recommend Vascular Surgery consult. Dr. Doherty has been contacted. 2. We will order wound care for the left fourth toe as well as x-rays of the left foot. 3. Need Vascular and Medical clearance prior to any toe amputation. Thank you for the courtesy of this consultation. We will continue to follow. Indio Griffin D.P.M. DR: JIGNESH JOB#: [id number] CC: [email or web address]
[2019-05-28] MEDS ORDERED: Metoclopramide 10mg/2ml Inj IVP PRN (18:45)
--- NOTE | 2019-05-28 19:33 | NUR ---
HAND-OFF: Report given to Preston FARRIS.
[2019-05-28] MEDS: Hydromorphone 0.5mg/0.5ml inj IVP PRN (19:57)
[2019-05-28 20:00] VITALS: BP 128/65
[2019-05-28] MEDS: Atorvastatin 20mg tab ORAL SCH (21:52)
[2019-05-29] VITALS: BP 132/65
[2019-05-29] MEDS: LORazepam 1mg tab ORAL PRN ×3 (00:21→21:29)
--- NOTE | 2019-05-29 00:52 | NUR ---
NURSE NOTES: Received patient in bed but constantly trying to get out, bed alarm on, yellow socks on. Patient continuously taking gown off. IV access asymptomatic, flushes easily.
[2019-05-29 04:00] VITALS: BP 130/72
[2019-05-29] MEDS: Hydromorphone 0.5mg/0.5ml inj IVP PRN ×2 (06:07→18:46)
[2019-05-29 07:04] LABS: BASOPHILS % (AUTO) 1.7 % (0.0-2.0); EOSINOPHILS % (AUTO) 3.7 % (0.0-3.0); HEMATOCRIT 38.2 % (42.0-52.0); HEMOGLOBIN 11.6 G/DL (14.2-18.0); LYMPHOCYTES % (AUTO) 18.3 % (20.0-45.0); MEAN CORPUSCULAR VOLUME 97 FL (80-99); MONOCYTES % (AUTO) 9.1 % (1.0-10.0); NEUTROPHILS % (AUTO) 67.2 % (45.0-75.0); PLATELET COUNT 172 K/UL (150-450); RED BLOOD COUNT 3.95 M/UL (4.70-6.10); RED CELL DISTRIBUTION WIDTH 15.7 % (11.6-14.8); WHITE BLOOD COUNT 8.5 K/UL (4.8-10.8)
[2019-05-29 07:05] LABS: ANION GAP 8 mmol/L (5-15); BLOOD UREA NITROGEN 16 mg/dL (7-18); CALCIUM 8.8 MG/DL (8.5-10.1); CARBON DIOXIDE 30 MMOL/L (21-32); CHLORIDE 101 MMOL/L (98-107); CREATININE 5.7 MG/DL (0.55-1.30); POTASSIUM 4.5 MMOL/L (3.5-5.1); SODIUM 139 MMOL/L (136-145)
--- NOTE | 2019-05-29 07:20 | NUR ---
HAND-OFF: Report given to KALEIGH Gray.
--- NOTE | 2019-05-29 07:52 | NUR ---
NURSE NOTES: Patient received sleeping in bed, no signs of respiratory distress with nasal cannula on at 2L. No signs of pain observed. IV site patent and intact. Bed alarm is on. Bed locked in lowest position. Call light placed within reach, will continue to monitor.
[2019-05-29 08:00] VITALS: BP 127/72
[2019-05-29] MEDS: Carvedilol 25mg Tab ORAL SCH ×2 (09:00→20:12)
[2019-05-29] MEDS: Imdur 30mg tab ORAL SCH (09:00)
[2019-05-29] MEDS: Docusate 100mg cap ORAL SCH ×3 (09:00→18:00)
[2019-05-29] MEDS: Sertraline 50mg tab ORAL SCH (09:00)
[2019-05-29] MEDS: Lisinopril 10mg tab ORAL SCH (09:00)
[2019-05-29] MEDS: Nephrovite tab (Rena-Vite) ORAL SCH (09:00)
[2019-05-29] MEDS ORDERED: Vancomycin 500mg/D5W 110ml IVPB SCH ×2 (10:00)
--- NOTE | 2019-05-29 10:38 | Nephrology Progress Note ---
Assessment/Plan Problem List: (1) ESRF (end stage renal failure) (2) Cardiomyopathy Assessment: 40% Ej Fx (3) COPD (chronic obstructive pulmonary disease) (4) Anemia Assessment presents with SOB: CHF vs COPD Exacerbation ESRD CHF with previous Echo showing Ej Fx 40 % h/o At fib DM HTN Anemia COPD recent ear infection Plan HD next Optimize cardiac condition BP and BS check and control Discussed with Dr Chucky Hayes and Dig adjust mind altering meds per PMD per orders med surg?? Subjective ROS Limited/Unobtainable: No Constitutional: Reports: malaise Objective Objective Last 24 Hour Vital Signs Date Time Temp Pulse Resp B/P (MAP) Pulse Ox O2 Delivery O2 Flow Rate FiO2 05/29/19 09:00 Nasal Cannula 2.0 05/29/19 08:00 98.0 72 18 127/72 (90) 98 05/29/19 07:25 100 Nasal Cannula 3.0 32 05/29/19 06:37 97.2 05/29/19 04:00 97.7 72 18 130/72 (91) 99 05/29/19 03:00 Nasal Cannula 2.0 28 05/29/19 03:00 Room Air 2.0 28 05/29/19 00:00 97.2 79 20 132/65 (87) 100 05/28/19 23:57 Nasal Cannula 2.0 05/28/19 23:40 72 18 100 Nasal Cannula 2.0 28 05/28/19 23:26 91 20 96 Nasal Cannula 2.0 05/28/19 21:53 96 128/65 05/28/19 20:21 99 Nasal Cannula 2.0 05/28/19 20:11 96 20 99 Nasal Cannula 2.0 28 05/28/19 20:11 94 20 95 Room Air 21 05/28/19 20:00 97.9 104 20 128/65 (86) 94 05/28/19 16:01 90 18 99 Nasal Cannula 2.0 28 05/28/19 16:00 97.6 81 20 128/65 (86) 94 05/28/19 15:51 111 16 98 Nasal Cannula 2.0 28 05/28/19 12:41 84 18 99 Nasal Cannula 2.0 28 05/28/19 12:32 84 16 98 Nasal Cannula 2.0 28 05/28/19 12:00 97.1 84 20 130/75 (93) 97 05/28/19 12:00 84 Intake and Output 05/28/19 05/29/19 18:59 06:59 Intake Total 210 ml 350 ml Balance 210 ml 350 ml Intake Oral 210 ml 350 ml # Bowel Movements 1 Laboratory Tests 05/29/19 06:28: White Blood Count 8.5, Red Blood Count 3.95L, Hemoglobin 11.6L, Hematocrit 38.2L , Mean Corpuscular Volume 97, Mean Corpuscular Hemoglobin 29.4, Mean Corpuscular Hemoglobin Concent 30.4L, Red Cell Distribution Width 15.7H, Platelet Count 172, Mean Platelet Volume 6.4L, Neutrophils (%) (Auto) 67.2, Lymphocytes (%) (Auto) 18.3L, Monocytes (%) (Auto) 9.1, Eosinophils (%) (Auto) 3.7H, Basophils (%) (Auto) 1.7, Sodium Level 139, Potassium Level 4.5, Chloride Level 101, Carbon Dioxide Level 30, Anion Gap 8, Blood Urea Nitrogen 16, Creatinine 5.7H, Estimat Glomerular Filtration Rate 12.0, Glucose Level 100, Calcium Level 8.8, Phosphorus Level 4.0, Random Vancomycin Level 16.9 Height (Feet): 5 Height (Inches): 10.00 Weight (Pounds): 195 General Appearance: no apparent distress Objective no change Francisco Javier Abraham MD May 29, 2019 10:38
--- NOTE | 2019-05-29 11:35 | General Progress Note ---
Assessment/Plan Status: stable Assessment/Plan: 69 year oldrola a PMH of a fib on AC, ESRD on HD, anemia, htn, DM, COPD, HFPEF presented for acute hypoxemic respiratory failure # Acute Hypoxic Repiratory Failure likely 2/2 chf exacerbation - cardiac medications - echo with preserved EF 40-45 % - HD for fluid removal per Dr. Chen. HD 05/28 and next 05/30 - RT - breathing treatments - Pulm Consult appreciated # Supratherapeutic INR - hold coumadin - vit k +/- FFP if patient bleeds - daily INR needed - Pharmacy to dose. # Hyponatremia likely hypervolemic from chf - HD - CTM # ESRD - HD by Nephrology, Last HD 05/28 # Afib with episodes of WCT and AF with aberrancy, Dr. Stone consultation appreciated. Dr. Villegas covering this week. Digoxin was stopped and Carvedilol 25 mg BID - cardiac meds being adjusted. - hold coumadin for now # Iron deficiency anemia - iron replacement # UTI due to Enterococcus F - Per sensitivities only Ampicillin and Vancomycin are appropriate. - Stop CTX and start Vancomycin per pharmacy today # Dysphagia with aspiration risk - Discussed with ST - Dietary adjustment - Daily ST and adjustments as needed - GI consultation for PEG completed. 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 - Await recommendations. Podiatry consult noted and vascular surgery pending. # Full Code # Dispo- SNF (prior resident) - Request PT and OT evaluation for mobility Subjective Allergies: Coded Allergies: No Known Allergies (Verified , 07/21/11) All Systems: reviewed and negative except above Subjective Reports feeling better today. Ate 50 % breakfast. Patient has not been out of bed since admission. Objective Last 24 Hour Vital Signs Date Time Temp Pulse Resp B/P (MAP) Pulse Ox O2 Delivery O2 Flow Rate FiO2 05/29/19 09:00 Nasal Cannula 2.0 05/29/19 08:00 98.0 72 18 127/72 (90) 98 05/29/19 07:25 100 Nasal Cannula 3.0 32 05/29/19 06:37 97.2 05/29/19 04:00 97.7 72 18 130/72 (91) 99 05/29/19 03:00 Nasal Cannula 2.0 28 05/29/19 03:00 Room Air 2.0 28 05/29/19 00:00 97.2 79 20 132/65 (87) 100 05/28/19 23:57 Nasal Cannula 2.0 05/28/19 23:40 72 18 100 Nasal Cannula 2.0 28 05/28/19 23:26 91 20 96 Nasal Cannula 2.0 28 05/28/19 21:53 96 128/65 05/28/19 20:21 99 Nasal Cannula 2.0 28 05/28/19 20:11 96 20 99 Nasal Cannula 2.0 28 05/28/19 20:11 94 20 95 Room Air 21 05/28/19 20:00 97.9 104 20 128/65 (86) 94 05/28/19 16:01 90 18 99 Nasal Cannula 2.0 05/28/19 16:00 97.6 81 20 128/65 (86) 94 05/28/19 15:51 111 16 98 Nasal Cannula 2.0 05/28/19 12:41 84 18 99 Nasal Cannula 2.0 05/28/19 12:32 84 16 98 Nasal Cannula 2.0 28 05/28/19 12:00 97.1 84 20 130/75 (93) 97 05/28/19 12:00 84 Intake and Output 05/28/19 05/29/19 19:00 07:00 Intake Total 210 ml 350 ml Balance 210 ml 350 ml Intake Oral 210 ml 350 ml # Bowel Movements 1 Laboratory Tests 05/29/19 06:28: White Blood Count 8.5, Red Blood Count 3.95L, Hemoglobin 11.6L, Hematocrit 38.2L , Mean Corpuscular Volume 97, Mean Corpuscular Hemoglobin 29.4, Mean Corpuscular Hemoglobin Concent 30.4L, Red Cell Distribution Width 15.7H, Platelet Count 172, Mean Platelet Volume 6.4L, Neutrophils (%) (Auto) 67.2, Lymphocytes (%) (Auto) 18.3L, Monocytes (%) (Auto) 9.1, Eosinophils (%) (Auto) 3.7H, Basophils (%) (Auto) 1.7, Sodium Level 139, Potassium Level 4.5, Chloride Level 101, Carbon Dioxide Level 30, Anion Gap 8, Blood Urea Nitrogen 16, Creatinine 5.7H, Estimat Glomerular Filtration Rate 12.0, Glucose Level 100, Calcium Level 8.8, Phosphorus Level 4.0, Random Vancomycin Level 16.9 Height (Feet): 5 Height (Inches): 10.00 Weight (Pounds): 195 General Appearance: WD/WN EENT: PERRL/EOMI Neck: non-tender Cardiovascular: normal rate Respiratory/Chest: lungs clear Abdomen: non tender Neurologic: water purification chemist II-XII grossly normal Riccardo Saravia MD May 29, 2019 11:35
[2019-05-29 12:00] VITALS: BP 130/82
--- NOTE | 2019-05-29 12:39 | Cardiology Progress Note ---
Assessment/Plan Status: stable Assessment/Plan Assessment/Plan Assessment/Plan 1. Wide complex tachycardia. Atrial fibrillation No evidence of pre excitation His echocardiogram showed EF of 40 to 45 percent. Increase coreg to 25 mg BID D/c digoxin in light of renal disease and hyperkalemia 2. Elevated INR Hold coumadin per pharmacy PEG tube to be placed when INR <2 3. Hypertension. Continue current medical therapy. 4. Congestive heart failure with EF of 40 to 45 percent Multifactorial Ischemia evaluation when stable due to risk factors 5. COPD. stable 6. UTI. On antibiotics. 7. End-stage renal disease, on hemodialysis. Subjective Cardiovascular: Reports: no symptoms Respiratory: Reports: no symptoms Gastrointestinal/Abdominal: Reports: no symptoms Genitourinary: Reports: no symptoms Subjective Coverage for [place] Remains tachycardic but rates better controlled, BP stable, no acute events, no distress, nursing notes reviewed, d/w Internal medicine INR 5.5 today Objective Last 24 Hour Vital Signs Date Time Temp Pulse Resp B/P (MAP) Pulse Ox O2 Delivery O2 Flow Rate FiO2 05/29/19 12:00 98.6 79 18 130/82 (98) 97 05/29/19 09:00 Nasal Cannula 2.0 05/29/19 08:00 98.0 72 18 127/72 (90) 98 05/29/19 07:25 100 Nasal Cannula 3.0 32 05/29/19 06:37 97.2 05/29/19 04:00 97.7 72 18 130/72 (91) 99 05/29/19 03:00 Nasal Cannula 2.0 28 05/29/19 03:00 Room Air 2.0 28 05/29/19 00:00 97.2 79 20 132/65 (87) 100 05/28/19 23:57 Nasal Cannula 2.0 05/28/19 23:40 72 18 100 Nasal Cannula 2.0 28 05/28/19 23:26 91 20 96 Nasal Cannula 2.0 28 05/28/19 21:53 96 128/65 05/28/19 20:21 99 Nasal Cannula 2.0 28 05/28/19 20:11 96 20 99 Nasal Cannula 2.0 28 05/28/19 20:11 94 20 95 Room Air 21 05/28/19 20:00 97.9 104 20 128/65 (86) 94 05/28/19 16:01 90 18 99 Nasal Cannula 2.0 28 05/28/19 16:00 97.6 81 20 128/65 (86) 94 05/28/19 15:51 111 16 98 Nasal Cannula 2.0 28 05/28/19 12:41 84 18 99 Nasal Cannula 2.0 28 General Appearance: no apparent distress, alert EENT: PERRL/EOMI, normal ENT inspection, TMs normal, pharynx normal Neck: non-tender, normal alignment, supple, normal inspection, no JVD, abnormal alignment Rhythm: Afib Cardiovascular: normal rate, regularly irregular Respiratory/Chest: chest wall non-tender, lungs clear, normal breath sounds, no respiratory distress Abdomen: normal bowel sounds, non tender, soft, no organomegaly Extremities: normal range of motion, non-tender, normal inspection, no calf tenderness Neurologic: rock splitter II-XII grossly normal, no motor/sensory deficits Intake and Output 05/28/19 05/29/19 19:00 07:00 Intake Total 210 ml 350 ml Balance 210 ml 350 ml Intake Oral 210 ml 350 ml # Bowel Movements 1 Laboratory Tests Test 05/29/19 06:28 White Blood Count 8.5 K/UL (4.8-10.8) Red Blood Count 3.95 M/UL (4.70-6.10) L Hemoglobin 11.6 G/DL (14.2-18.0) L Hematocrit 38.2 % (42.0-52.0) L Mean Corpuscular Volume 97 FL (80-99) Mean Corpuscular Hemoglobin 29.4 PG (27.0-31.0) Mean Corpuscular Hemoglobin Concent 30.4 G/DL (32.0-36.0) L Red Cell Distribution Width 15.7 % (11.6-14.8) H Platelet Count 172 K/UL (150-450) Mean Platelet Volume 6.4 FL (6.5-10.1) L Neutrophils (%) (Auto) 67.2 % (45.0-75.0) Lymphocytes (%) (Auto) 18.3 % (20.0-45.0) L Monocytes (%) (Auto) 9.1 % (1.0-10.0) Eosinophils (%) (Auto) 3.7 % (0.0-3.0) H Basophils (%) (Auto) 1.7 % (0.0-2.0) Sodium Level 139 MMOL/L (136-145) Potassium Level 4.5 MMOL/L (3.5-5.1) Chloride Level 101 MMOL/L (98-107) Carbon Dioxide Level 30 MMOL/L (21-32) Anion Gap 8 mmol/L (5-15) Blood Urea Nitrogen 16 mg/dL (7-18) Creatinine 5.7 MG/DL (0.55-1.30) H Estimat Glomerular Filtration Rate 12.0 mL/min (>60) Glucose Level 100 MG/DL (74-106) Calcium Level 8.8 MG/DL (8.5-10.1) Phosphorus Level 4.0 MG/DL (2.5-4.9) Random Vancomycin Level 16.9 ug/mL Microbiology Date/Time Source Procedure Growth Status 05/26/19 13:00 Stool Stool Culture - Preliminary NORMAL FECAL RAJ. Resulted 05/26/19 13:00 Stool Clostridium difficile Toxin Assay - Final Complete FilsoNavneet dodge MD May 29, 2019 12:39
--- NOTE | 2019-05-29 13:19 | CDS Physician Query ---
Clarification is required for compliance, coding accuracy, and to reflect severity of illness for this patient Dear Dr. Saravia Date: 05/29/19 CDS: Sparkle Aguillon "Heart Failure / CHF" documented in the progress note. Ejection fraction 40-45 % Please Clarify: Acuity [ ] Acute [ ] Chronic [x ] Acute on Chronic Type [ ] Systolic [ x] Diastolic [ ] Systolic & Diastolic (Combined) [ ] Other: Present on Admission: []x Yes [] No [] Clinically Undetermined Riccardo Saravia Physician signature Date Please also document in your Progress Notes and/or Discharge Summary and indicate if the condition was present on admission. [place]
--- NOTE | 2019-05-29 13:39 | Surgery Progress Note ---
Surgery Progress Note Subjective Additional Comments no acute events comfortable stable no complaints. labs noted exam stable. Objective Last 24 Hour Vital Signs Date Time Temp Pulse Resp B/P (MAP) Pulse Ox O2 Delivery O2 Flow Rate FiO2 05/29/19 12:00 98.6 79 18 130/82 (98) 97 05/29/19 09:00 Nasal Cannula 2.0 05/29/19 08:00 98.0 72 18 127/72 (90) 98 05/29/19 07:25 100 Nasal Cannula 3.0 32 05/29/19 06:37 97.2 05/29/19 04:00 97.7 72 18 130/72 (91) 99 05/29/19 03:00 Nasal Cannula 2.0 28 05/29/19 03:00 Room Air 2.0 28 05/29/19 00:00 97.2 79 20 132/65 (87) 100 05/28/19 23:57 Nasal Cannula 2.0 05/28/19 23:40 72 18 100 Nasal Cannula 2.0 28 05/28/19 23:26 91 20 96 Nasal Cannula 2.0 28 05/28/19 21:53 96 128/65 05/28/19 20:21 99 Nasal Cannula 2.0 28 05/28/19 20:11 96 20 99 Nasal Cannula 2.0 28 05/28/19 20:11 94 20 95 Room Air 21 05/28/19 20:00 97.9 104 20 128/65 (86) 94 05/28/19 16:01 90 18 99 Nasal Cannula 2.0 28 05/28/19 16:00 97.6 81 20 128/65 (86) 94 05/28/19 15:51 111 16 98 Nasal Cannula 2.0 28 I&O Intake and Output 05/28/19 05/29/19 19:00 07:00 Intake Total 210 ml 350 ml Balance 210 ml 350 ml Intake Oral 210 ml 350 ml # Bowel Movements 1 Dressing: dry Wound: other Drains: other Cardiovascular: RSR Respiratory: clear Abdomen: non-tender, present bowel sounds Extremities: cyanosis, other Laboratory Tests Test 05/29/19 06:28 White Blood Count 8.5 K/UL (4.8-10.8) Red Blood Count 3.95 M/UL (4.70-6.10) L Hemoglobin 11.6 G/DL (14.2-18.0) L Hematocrit 38.2 % (42.0-52.0) L Mean Corpuscular Volume 97 FL (80-99) Mean Corpuscular Hemoglobin 29.4 PG (27.0-31.0) Mean Corpuscular Hemoglobin Concent 30.4 G/DL (32.0-36.0) L Red Cell Distribution Width 15.7 % (11.6-14.8) H Platelet Count 172 K/UL (150-450) Mean Platelet Volume 6.4 FL (6.5-10.1) L Neutrophils (%) (Auto) 67.2 % (45.0-75.0) Lymphocytes (%) (Auto) 18.3 % (20.0-45.0) L Monocytes (%) (Auto) 9.1 % (1.0-10.0) Eosinophils (%) (Auto) 3.7 % (0.0-3.0) H Basophils (%) (Auto) 1.7 % (0.0-2.0) Sodium Level 139 MMOL/L (136-145) Potassium Level 4.5 MMOL/L (3.5-5.1) Chloride Level 101 MMOL/L (98-107) Carbon Dioxide Level 30 MMOL/L (21-32) Anion Gap 8 mmol/L (5-15) Blood Urea Nitrogen 16 mg/dL (7-18) Creatinine 5.7 MG/DL (0.55-1.30) H Estimat Glomerular Filtration Rate 12.0 mL/min (>60) Glucose Level 100 MG/DL (74-106) Calcium Level 8.8 MG/DL (8.5-10.1) Phosphorus Level 4.0 MG/DL (2.5-4.9) Random Vancomycin Level 16.9 ug/mL Plan Problems: (1) Gangrene of toe Assessment & Plan: Patient with two partial thickness pressure injuries sacral cleft (proximal)(L)0.4cm x (W)0.3cm. Base of wound moist and viable Non- blanching erythema without induration periwound. (distal at perianal ) (L)1.7cm x (W)0.5cm. Base of wound moist and viable. Borders macerated. Non-Blanching erythema without induration periwound. Non-blanching erythema with fluctuance noted to L heel . Non-blanching erythema with fluctuance noted to R heel. L 4th metatarsal is necrotic but dry . appreciate podiatry input plan for amputation after vascular and medical clearance INR elevated will monitor Recommendations: Necrotic L 4th metatarsal. etiology potentially vascular vs trauma. will order studies and work up. Apply Moisture Barrier Paste to Buttocks. Cover with Optifoam drsg . Change every 3 days and prn. Apply Cavilon Skin Barrier to both heels. Cover each heel with Optifoam drsg.Change every 7 days and PRN. Apply Betadine to L 4th metatarsal daily. Reposition at least every 2 hours or as tolerated. Off-load heels with pillow. Killian Doyle May 29, 2019 13:39
[2019-05-29 16:00] VITALS: BP 129/81
--- NOTE | 2019-05-29 16:57 | Pulmonology Progress Note ---
Assessment/Plan Assessment/Plan Pulmonary Progress Note HPI Patient is a 69-year-old male with a history of Alzheimers Dementia, COPD, CHF with EF 25%, Hypertension, Pacemaker, CKD on HD, Previous CVA, chronic weakness , Diabetes, AO x1, presents with acute dyspnea, patient was at the convalescent house not taking his oxygen, he is oxygen dependent, has a history of COPD, he was hypoxic down to the low 80s, history is limited secondary to patient's dementia. Noted to have UTI, CXR pulm congestion, elevated NPA, V/Q negative, has coagulopathy associated with coumadin now improving Previously on anticoagulation [facility] for atrial fibrillation Allergies: No Known Allergies Past Medical History: Alzheimers Dementia, COPD, Hypertension, CHF with EF 25% , Pacemaker, CKD on HD, Previous CVA, chronic weakness, Diabetes All Other Systems: limited Physical Exam Vital Signs Noted General Appearance: no apparent distress, alert Head: normocephalic, atraumatic Eyes: bilateral eye PERRL, bilateral eye EOMI ENT: uvula midline, moist mucus membranes Neck: supple, thyroid normal, supple/symmetrical/no masses Respiratory: lungs clear, no respiratory distress, no retraction, no accessory muscle use, other - on non rebreather Cardiovascular: normal HS, normal peripheral pulses, no gallop, no murmur, tachycardia, irregular Gastrointestinal: non tender, soft, no guarding, no rebound Musculoskeletal: normal inspection Neurologic: awake, oriented x1, responsive Skin: no rash, warm/dry, no edema Impression: Dyspnea CHF with EF 25% HTN COPD Hypoxia - VQ negative for PE UTI (lower urinary tract infection) Alzheimer Dementia Plan - O2 PRN - HHN - IV Antibiotics for UTI - Monitor labs - PPX Laboratory Tests Noted EKG: Atrial fibrillation, rate 110, QTc 544, no acute ST elevations, normal axis Chest X-Ray: no consolidation, no pneumothorax, no acute cardiopulmonary disease Subjective ROS Limited/Unobtainable: No Allergies: Coded Allergies: No Known Allergies (Verified , 07/21/11) Objective Last 24 Hour Vital Signs Date Time Temp Pulse Resp B/P (MAP) Pulse Ox O2 Delivery O2 Flow Rate FiO2 05/29/19 16:00 98.2 69 18 129/81 (97) 97 05/29/19 12:00 98.6 79 18 130/82 (98) 97 05/29/19 09:00 Nasal Cannula 2.0 05/29/19 08:00 98.0 72 18 127/72 (90) 98 05/29/19 07:25 100 Nasal Cannula 3.0 32 05/29/19 06:37 97.2 05/29/19 04:00 97.7 72 18 130/72 (91) 99 05/29/19 03:00 Nasal Cannula 2.0 28 05/29/19 03:00 Room Air 2.0 28 05/29/19 00:00 97.2 79 20 132/65 (87) 100 05/28/19 23:57 Nasal Cannula 2.0 05/28/19 23:40 72 18 100 Nasal Cannula 2.0 28 05/28/19 23:26 91 20 96 Nasal Cannula 2.0 28 05/28/19 21:53 96 128/65 05/28/19 20:21 99 Nasal Cannula 2.0 28 05/28/19 20:11 96 20 99 Nasal Cannula 2.0 28 05/28/19 20:11 94 20 95 Room Air 21 05/28/19 20:00 97.9 104 20 128/65 (86) 94 Intake and Output 05/28/19 05/29/19 19:00 07:00 Intake Total 210 ml 350 ml Balance 210 ml 350 ml Intake Oral 210 ml 350 ml # Bowel Movements 1 Laboratory Tests 05/29/19 06:28: White Blood Count 8.5, Red Blood Count 3.95L, Hemoglobin 11.6L, Hematocrit 38.2L , Mean Corpuscular Volume 97, Mean Corpuscular Hemoglobin 29.4, Mean Corpuscular Hemoglobin Concent 30.4L, Red Cell Distribution Width 15.7H, Platelet Count 172, Mean Platelet Volume 6.4L, Neutrophils (%) (Auto) 67.2, Lymphocytes (%) (Auto) 18.3L, Monocytes (%) (Auto) 9.1, Eosinophils (%) (Auto) 3.7H, Basophils (%) (Auto) 1.7, Sodium Level 139, Potassium Level 4.5, Chloride Level 101, Carbon Dioxide Level 30, Anion Gap 8, Blood Urea Nitrogen 16, Creatinine 5.7H, Estimat Glomerular Filtration Rate 12.0, Glucose Level 100, Calcium Level 8.8, Phosphorus Level 4.0, Random Vancomycin Level 16.9 Current Medications Medications (Trade) Dose Ordered Sig/Divya Route PRN Reason Start Time Stop Time Status Last Admin Dose Admin Acetaminophen (Tylenol) 650 mg Q4H PRN ORAL Mild Pain (Pain Scale 1-3) 05/28/19 18:45 06/27/19 18:44 Acetaminophen (Tylenol) 650 mg Q4H PRN ORAL fever (temp>100.5F) 05/28/19 18:45 06/22/19 18:44 Aripiprazole (Abilify) 15 mg DAILY ORAL 05/29/19 09:00 06/23/19 08:59 Atorvastatin Calcium (Lipitor) 40 mg QHS ORAL 05/28/19 21:00 06/23/19 08:59 05/28/19 21:52 Carvedilol (Coreg) 25 mg EVERY 12 HOURS ORAL 05/28/19 21:00 06/23/19 20:59 05/28/19 21:53 Dextrose (Dextrose 50%) 25 ml Q30M PRN IV Hypoglycemia 05/28/19 18:45 06/22/19 18:14 Dextrose (Dextrose 50%) 50 ml Q30M PRN IV Hypoglycemia 05/28/19 18:45 06/22/19 18:14 Diphenhydramine HCl (Benadryl) 25 mg Q6H PRN ORAL Itching/Pruritis 05/28/19 18:45 06/27/19 18:44 05/29/19 08:37 Docusate Sodium (Colace) 100 mg THREE TIMES A DAY ORAL 05/29/19 09:00 06/23/19 12:59 Hydromorphone HCl (Dilaudid) 0.5 mg Q6H PRN IVP Severe Pain (Pain Scale 7-10) 05/28/19 18:45 06/04/19 18:44 05/29/19 06:07 Isosorbide Mononitrate (Imdur) 60 mg DAILY ORAL 05/29/19 09:00 06/23/19 08:59 Lisinopril (Zestril) 10 mg DAILY ORAL 05/29/19 09:00 06/23/19 08:59 Lorazepam (Ativan) 1 mg Q4H PRN ORAL For Anxiety 05/28/19 22:15 05/30/19 18:14 05/29/19 05:00 Metoclopramide HCl (Reglan) 10 mg Q6H PRN IVP Nausea & Vomiting 05/28/19 18:45 06/27/19 18:44 Mupirocin (Bactroban Oint) 1 applic BID TOPIC 05/29/19 09:00 05/30/19 18:01 05/29/19 10:34 Ondansetron HCl (Zofran) 4 mg Q6H PRN IVP Nausea & Vomiting 05/28/19 18:45 06/27/19 18:44 Pantoprazole (Protonix) 40 mg EVERY 12 HOURS ORAL 05/28/19 21:00 06/23/19 20:59 05/28/19 21:52 Prochlorperazine (Compazine) 10 mg Q6H PRN IVP Nausea & Vomiting 05/28/19 18:45 06/27/19 18:44 Sertraline HCl (Zoloft) 50 mg DAILY ORAL 05/29/19 09:00 06/23/19 08:59 Sevelamer Carbonate (Renvela) 1,600 mg THREE TIMES A DAY ORAL 05/29/19 09:00 06/23/19 08:59 Temazepam (Restoril) 15 mg HSPRN PRN ORAL Insomnia 05/29/19 21:00 05/30/19 20:59 Vancomycin HCl (Vanco rx to dose) 1 ea DAILY PRN MISC Per rx protocol 05/28/19 18:45 06/27/19 18:44 Vitamin B Complex/ Vit C/Folic Acid (Nephrovite) 1 tab DAILY ORAL 05/29/19 09:00 06/23/19 08:59 Navneet Bond MD May 29, 2019 16:57
--- NOTE | 2019-05-29 19:02 | NUR ---
HAND-OFF: Report given to Preston FARRIS.
--- NOTE | 2019-05-29 19:23 | NUR ---
NURSE NOTES: Received patient asleep in bed, no s/s of acute distress, easily arousble by name. IV access asymptomatic, wrapped in kerlix, flushes easily. Fall and safety precautions taken, texture modifications for diet order noted.
--- NOTE | 2019-05-29 19:43 | NUR ---
CASE MANAGEMENT: REVIEW SI: HYPOXIA . GANGRENE OF TOE / LEFT 4TH . COPD . ESRD ON HD T 97.2 HR 72 RR 18 BP 127/72 SAT 98% NC/3L H/H 11.6/38.2 CR 5.7 IS: ISOSORBIDE PO TID NEPHROVITE PO QD COREG PO Q12HR WOUND CARE QD HD PRN MED/SURG STATUS DCP: PATIENT IS FROM CV TERRACE PLAN: AMPUTATION PENDING VASCULAR AND MEDICAL CLEARANCE
[2019-05-29 20:00] VITALS: BP 131/83
[2019-05-29] MEDS: Atorvastatin 20mg tab ORAL SCH (20:12)
--- NOTE | 2019-05-29 21:26 | General Progress Note ---
Assessment/Plan Status: stable Assessment/Plan: Assessment - CVA / AMS / Delirium - compromised swallow - elevated INR - COPD - CHF, reduced EF Recommendations - Family agreed to PEG - will place feeding tube next week once INR corrected - aspiration precautions - Elevate HOB Subjective Allergies: Coded Allergies: No Known Allergies (Verified , 07/21/11) Subjective above noted awake minimally interactive d/w , agreed to proceed with PEG Objective Last 24 Hour Vital Signs Date Time Temp Pulse Resp B/P (MAP) Pulse Ox O2 Delivery O2 Flow Rate FiO2 05/29/19 20:12 69 129/81 05/29/19 16:00 98.2 69 18 129/81 (97) 97 05/29/19 12:00 98.6 79 18 130/82 (98) 97 05/29/19 09:00 Nasal Cannula 2.0 05/29/19 08:00 98.0 72 18 127/72 (90) 98 05/29/19 07:25 100 Nasal Cannula 3.0 32 05/29/19 06:37 97.2 05/29/19 04:00 97.7 72 18 130/72 (91) 99 05/29/19 03:00 Nasal Cannula 2.0 28 05/29/19 03:00 Room Air 2.0 28 05/29/19 00:00 97.2 79 20 132/65 (87) 100 05/28/19 23:57 Nasal Cannula 2.0 05/28/19 23:40 72 18 100 Nasal Cannula 2.0 28 05/28/19 23:26 91 20 96 Nasal Cannula 2.0 28 05/28/19 21:53 96 128/65 Intake and Output 05/28/19 05/29/19 19:00 07:00 Intake Total 210 ml 350 ml Balance 210 ml 350 ml Intake Oral 210 ml 350 ml # Bowel Movements 1 Laboratory Tests 05/29/19 06:28: White Blood Count 8.5, Red Blood Count 3.95L, Hemoglobin 11.6L, Hematocrit 38.2L , Mean Corpuscular Volume 97, Mean Corpuscular Hemoglobin 29.4, Mean Corpuscular Hemoglobin Concent 30.4L, Red Cell Distribution Width 15.7H, Platelet Count 172, Mean Platelet Volume 6.4L, Neutrophils (%) (Auto) 67.2, Lymphocytes (%) (Auto) 18.3L, Monocytes (%) (Auto) 9.1, Eosinophils (%) (Auto) 3.7H, Basophils (%) (Auto) 1.7, Sodium Level 139, Potassium Level 4.5, Chloride Level 101, Carbon Dioxide Level 30, Anion Gap 8, Blood Urea Nitrogen 16, Creatinine 5.7H, Estimat Glomerular Filtration Rate 12.0, Glucose Level 100, Calcium Level 8.8, Phosphorus Level 4.0, Random Vancomycin Level 16.9 Height (Feet): 5 Height (Inches): 10.00 Weight (Pounds): 184 Objective WDWn obese AA man NCAT supple CTA RRR abd soft no edema Lara La MD May 29, 2019 21:26
--- NOTE | 2019-05-29 22:31 | General Progress Note ---
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 Afib, Dementia, assisted resident, non ambulatory 2+ femorals absent popliteal pedal pulses with intact dopplers Thrombosed right arm av shunt with no thrill Chest permcath c/d/i Rec Medical optimization in progress CT angio aorta to both feet to delineate his vasculopathy Will strongly benefit from selective left leg angiogram & percutaneous revascularization prior to left toe gangrene amputation For permanent HD access; will also need arm duplex and bilateral arm venogram prior to new arm av shunt d/w pt's nurse d/w pmd & podiatry Kobe Doherty MD May 29, 2019 22:31
--- NOTE | 2019-05-29 22:58 | Diagnostic Imaging Report ---
APPROVED REPORT CPT Code: 25063 Comments Pre-Op RIGHT LEG: Common femoral artery waveform analysis is within normal limits at rest. Color flow duplex sonography reveals calcification throughout the superficial femoral and popliteal arteries. There is no evidence of significant stenosis or occlusion within this segment. A mild (30-49%) stenosis is seen in the distal dorsalis pedis artery. The distal posterior and anterior arteries are also mildly calcified. The Doppler tibial artery waveform analysis is compatible with minimal ischemia at rest. LEFT LEG: Common femoral artery waveform analysis is within normal limits at rest. Color flow duplex sonography reveals calcification throughout the superficial femoral and popliteal arteries. There is no evidence of significant stenosis or occlusion within this segment. A mild (30-49%) stenosis is seen in the distal dorsalis pedis artery. The distal posterior and anterior arteries are also mildly calcified. The Doppler tibial artery waveform analysis is compatible with minimal ischemia at rest.
--- NOTE | 2019-05-29 22:59 | Diagnostic Imaging Report ---
APPROVED REPORT CPT Code: 23062 Present Symptoms Comments: Screening BILATERAL: Imaging reveals a patent deep venous system bilaterally. There is no evidence of thrombus within the common femoral, superficial femoral, popliteal or tibial segments. The greater saphenous veins are within normal limits. Doppler indicates normal spontaneous flow within these segments.
[2019-05-30] VITALS (7 sets, daily range): BP systolic 72–136; BP diastolic 41–70
[2019-05-30] MEDS: LORazepam 1mg tab ORAL PRN (05:02)
[2019-05-30 07:33] LABS: BASOPHILS % (AUTO) 1.2 % (0.0-2.0); EOSINOPHILS % (AUTO) 3.9 % (0.0-3.0); HEMATOCRIT 34.8 % (42.0-52.0); LYMPHOCYTES % (AUTO) 22.4 % (20.0-45.0); MEAN CORPUSCULAR VOLUME 94 FL (80-99); MONOCYTES % (AUTO) 8.2 % (1.0-10.0); NEUTROPHILS % (AUTO) 64.3 % (45.0-75.0); PLATELET COUNT 210 K/UL (150-450); RED CELL DISTRIBUTION WIDTH 15.5 % (11.6-14.8); WHITE BLOOD COUNT 9.1 K/UL (4.8-10.8)
--- NOTE | 2019-05-30 07:35 | NUR ---
HAND-OFF: Report given to KALEIGH Gauthier.
--- NOTE | 2019-05-30 07:36 | NUR ---
NURSE NOTES: Received report from Preston/RN, Patient is AO x1, Awake, on 2L nasal canula. No acute distress/SOB noted, lying semi-badillo, resting comfortably. IV site patent, no bleeding or infiltration noted. Side rails up x3. Bed in lowest position and locked. call light within reach. Will continue plan of care.
[2019-05-30 07:37] LABS: ALANINE AMINOTRANSFERASE 13 U/L (12-78); ALBUMIN/GLOBULIN RATIO 0.4 (1.0-2.7); ALKALINE PHOSPHATASE 200 U/L (46-116); ANION GAP 8 mmol/L (5-15); ASPARTATE AMINO TRANSFERASE 54 U/L (15-37); BILIRUBIN,TOTAL 0.7 MG/DL (0.2-1.0); BLOOD UREA NITROGEN 23 mg/dL (7-18); CALCIUM 8.8 MG/DL (8.5-10.1); CARBON DIOXIDE 30 MMOL/L (21-32); CHLORIDE 100 MMOL/L (98-107); CREATININE 6.9 MG/DL (0.55-1.30); PHOSPHORUS 4.9 MG/DL (2.5-4.9); POTASSIUM 5.5 MMOL/L (3.5-5.1); SODIUM 138 MMOL/L (136-145)
[2019-05-30 08:07] LABS: INR 5.7 (0.9-1.1)
--- NOTE | 2019-05-30 08:15 | General Progress Note ---
Assessment/Plan Status: stable Assessment/Plan: Assessment/Plan: Assessment - CVA / AMS / Delirium - compromised swallow - elevated INR - COPD - CHF, reduced EF Recommendations - Family agreed to PEG - will place feeding tube next week once INR corrected - aspiration precautions - Elevate HOB Subjective ROS Limited/Unobtainable: No Allergies: Coded Allergies: No Known Allergies (Verified , 07/21/11) Objective Last 24 Hour Vital Signs Date Time Temp Pulse Resp B/P (MAP) Pulse Ox O2 Delivery O2 Flow Rate FiO2 05/30/19 04:00 97.9 73 20 127/62 (83) 97 05/30/19 00:00 97.9 70 22 116/60 (78) 97 05/29/19 22:20 Nasal Cannula 2.0 05/29/19 20:12 69 129/81 05/29/19 20:00 98.8 82 22 131/83 (99) 97 05/29/19 16:00 98.2 69 18 129/81 (97) 97 05/29/19 12:00 98.6 79 18 130/82 (98) 97 05/29/19 09:00 Nasal Cannula 2.0 Intake and Output 05/29/19 05/30/19 19:00 07:00 Intake Total 350 ml Balance 350 ml Intake Oral 350 ml # Bowel Movements 1 Laboratory Tests 05/30/19 06:20: White Blood Count 9.1, Red Blood Count 3.70L, Hemoglobin 11.0L, Hematocrit 34.8L , Mean Corpuscular Volume 94, Mean Corpuscular Hemoglobin 29.9, Mean Corpuscular Hemoglobin Concent 31.7L, Red Cell Distribution Width 15.5H, Platelet Count 210, Mean Platelet Volume 6.2L, Neutrophils (%) (Auto) 64.3, Lymphocytes (%) (Auto) 22.4, Monocytes (%) (Auto) 8.2, Eosinophils (%) (Auto) 3.9H, Basophils (%) (Auto) 1.2, Prothrombin Time 54.9H, Prothromb Time International Ratio 5.7*H, Sodium Level 138, Potassium Level 5.5H, Chloride Level 100, Carbon Dioxide Level 30, Anion Gap 8, Blood Urea Nitrogen 23H, Creatinine 6.9H, Estimat Glomerular Filtration Rate 9.7, Glucose Level 99, Uric Acid 6.9, Calcium Level 8.8, Phosphorus Level 4.9, Magnesium Level 2.2, Total Bilirubin 0.7, Aspartate Amino Transf (AST/SGOT) 54H, Alanine Aminotransferase ( ALT/SGPT) 13, Alkaline Phosphatase 200H, C-Reactive Protein, Quantitative 17.4H , Pro-B-Type Natriuretic Peptide 44142W, Total Protein 7.5, Albumin 2.0L, Globulin 5.5, Albumin/Globulin Ratio 0.4L Height (Feet): 5 Height (Inches): 10.00 Weight (Pounds): 185 General Appearance: no apparent distress EENT: PERRL/EOMI Neck: supple Cardiovascular: normal rate Respiratory/Chest: decreased breath sounds Abdomen: normal bowel sounds, non tender, soft Extremities: non-tender Jose C Kinney MD May 30, 2019 08:15
[2019-05-30] MEDS: Nephrovite tab (Rena-Vite) ORAL SCH (09:39)
[2019-05-30] MEDS: Sertraline 50mg tab ORAL SCH (09:39)
[2019-05-30] MEDS: Docusate 100mg cap ORAL SCH ×3 (09:39→18:46)
[2019-05-30] MEDS: Carvedilol 25mg Tab ORAL SCH ×2 (09:39→21:00)
[2019-05-30] MEDS: Lisinopril 10mg tab ORAL SCH (09:40)
[2019-05-30] MEDS: Imdur 30mg tab ORAL SCH (09:40)
--- NOTE | 2019-05-30 09:52 | Cardiology Progress Note ---
Assessment/Plan Status: stable Assessment/Plan Assessment/Plan Assessment/Plan 1. Wide complex tachycardia. Atrial fibrillation No evidence of pre excitation His echocardiogram showed EF of 40 to 45 percent. Increase coreg to 25 mg BID D/c digoxin in light of renal disease and hyperkalemia 2. Elevated INR Hold coumadin per pharmacy FFP Vitamin K PEG tube to be placed when INR <2 3. Hypertension. Continue current medical therapy. 4. Congestive heart failure with EF of 40 to 45 percent Multifactorial Ischemia evaluation when stable due to risk factors 5. COPD. stable 6. UTI. On antibiotics. 7. End-stage renal disease, on hemodialysis. Subjective Cardiovascular: Reports: no symptoms Respiratory: Reports: no symptoms Gastrointestinal/Abdominal: Reports: no symptoms Genitourinary: Reports: no symptoms Subjective Coverage for [place] Remains tachycardic but rates better controlled, BP stable, no acute events, no distress, nursing notes reviewed, d/w Internal medicine INR 5.7 today Plant for PEG when INR corrected Objective Last 24 Hour Vital Signs Date Time Temp Pulse Resp B/P (MAP) Pulse Ox O2 Delivery O2 Flow Rate FiO2 05/30/19 09:40 136/67 05/30/19 09:40 136/67 05/30/19 09:39 94 136/67 05/30/19 08:00 98.1 94 23 136/67 (90) 97 05/30/19 04:00 97.9 73 20 127/62 (83) 97 05/30/19 00:00 97.9 70 22 116/60 (78) 97 05/29/19 22:20 Nasal Cannula 2.0 05/29/19 20:12 69 129/81 05/29/19 20:00 98.8 82 22 131/83 (99) 97 05/29/19 16:00 98.2 69 18 129/81 (97) 97 05/29/19 12:00 98.6 79 18 130/82 (98) 97 General Appearance: no apparent distress EENT: PERRL/EOMI, normal ENT inspection Neck: non-tender, normal alignment, supple, normal inspection, no JVD Rhythm: NSR, Afib Cardiovascular: regularly irregular Respiratory/Chest: chest wall non-tender, lungs clear Abdomen: normal bowel sounds, non tender, no organomegaly Extremities: normal range of motion, non-tender, no calf tenderness 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, no motor/sensory deficits, disoriented Intake and Output 05/29/19 05/30/19 19:00 07:00 Intake Total 350 ml Balance 350 ml Intake Oral 350 ml # Bowel Movements 1 Laboratory Tests Test 05/30/19 06:20 White Blood Count 9.1 K/UL (4.8-10.8) Red Blood Count 3.70 M/UL (4.70-6.10) L Hemoglobin 11.0 G/DL (14.2-18.0) L Hematocrit 34.8 % (42.0-52.0) L Mean Corpuscular Volume 94 FL (80-99) Mean Corpuscular Hemoglobin 29.9 PG (27.0-31.0) Mean Corpuscular Hemoglobin Concent 31.7 G/DL (32.0-36.0) L Red Cell Distribution Width 15.5 % (11.6-14.8) H Platelet Count 210 K/UL (150-450) Mean Platelet Volume 6.2 FL (6.5-10.1) L Neutrophils (%) (Auto) 64.3 % (45.0-75.0) Lymphocytes (%) (Auto) 22.4 % (20.0-45.0) Monocytes (%) (Auto) 8.2 % (1.0-10.0) Eosinophils (%) (Auto) 3.9 % (0.0-3.0) H Basophils (%) (Auto) 1.2 % (0.0-2.0) Prothrombin Time 54.9 SEC (9.30-11.50) H Prothromb Time International Ratio 5.7 (0.9-1.1) *H Sodium Level 138 MMOL/L (136-145) Potassium Level 5.5 MMOL/L (3.5-5.1) H Chloride Level 100 MMOL/L (98-107) Carbon Dioxide Level 30 MMOL/L (21-32) Anion Gap 8 mmol/L (5-15) Blood Urea Nitrogen 23 mg/dL (7-18) H Creatinine 6.9 MG/DL (0.55-1.30) H Estimat Glomerular Filtration Rate 9.7 mL/min (>60) Glucose Level 99 MG/DL (74-106) Uric Acid 6.9 MG/DL (2.6-7.2) Calcium Level 8.8 MG/DL (8.5-10.1) Phosphorus Level 4.9 MG/DL (2.5-4.9) Magnesium Level 2.2 MG/DL (1.8-2.4) Total Bilirubin 0.7 MG/DL (0.2-1.0) Aspartate Amino Transf (AST/SGOT) 54 U/L (15-37) H Alanine Aminotransferase (ALT/SGPT) 13 U/L (12-78) Alkaline Phosphatase 200 U/L (46-116) H C-Reactive Protein, Quantitative 17.4 mg/dL (0.00-0.90) H Pro-B-Type Natriuretic Peptide 70234 pg/mL (0-125) H Total Protein 7.5 G/DL (6.4-8.2) Albumin 2.0 G/DL (3.4-5.0) L Globulin 5.5 g/dL Albumin/Globulin Ratio 0.4 (1.0-2.7) L Navneet Villegas MD May 30, 2019 09:52
--- NOTE | 2019-05-30 10:09 | Nephrology Progress Note ---
Assessment/Plan Problem List: (1) ESRF (end stage renal failure) (2) Cardiomyopathy Assessment: 40% Ej Fx (3) COPD (chronic obstructive pulmonary disease) (4) Anemia Assessment presents with SOB: CHF vs COPD Exacerbation ESRD CHF with previous Echo showing Ej Fx 40 % h/o At fib DM HTN Anemia COPD recent ear infection Plan HD next Optimize cardiac condition BP and BS check and control Discussed with Dr Chucky Hayes and Dig adjust mind altering meds per PMD per orders med surg?? Subjective ROS Limited/Unobtainable: No Constitutional: Reports: malaise Objective Objective Last 24 Hour Vital Signs Date Time Temp Pulse Resp B/P (MAP) Pulse Ox O2 Delivery O2 Flow Rate FiO2 05/30/19 10:02 97 Nasal Cannula 3.0 32 05/30/19 09:40 136/67 05/30/19 09:40 136/67 05/30/19 09:39 94 136/67 05/30/19 08:00 98.1 94 23 136/67 (90) 97 05/30/19 04:00 97.9 73 20 127/62 (83) 97 05/30/19 00:00 97.9 70 22 116/60 (78) 97 05/29/19 22:20 Nasal Cannula 2.0 05/29/19 20:12 69 129/81 05/29/19 20:00 98.8 82 22 131/83 (99) 97 05/29/19 16:00 98.2 69 18 129/81 (97) 97 05/29/19 12:00 98.6 79 18 130/82 (98) 97 Intake and Output 05/29/19 05/30/19 19:00 07:00 Intake Total 350 ml Balance 350 ml Intake Oral 350 ml # Bowel Movements 1 Laboratory Tests 05/30/19 06:20: White Blood Count 9.1, Red Blood Count 3.70L, Hemoglobin 11.0L, Hematocrit 34.8L , Mean Corpuscular Volume 94, Mean Corpuscular Hemoglobin 29.9, Mean Corpuscular Hemoglobin Concent 31.7L, Red Cell Distribution Width 15.5H, Platelet Count 210, Mean Platelet Volume 6.2L, Neutrophils (%) (Auto) 64.3, Lymphocytes (%) (Auto) 22.4, Monocytes (%) (Auto) 8.2, Eosinophils (%) (Auto) 3.9H, Basophils (%) (Auto) 1.2, Prothrombin Time 54.9H, Prothromb Time International Ratio 5.7*H, Sodium Level 138, Potassium Level 5.5H, Chloride Level 100, Carbon Dioxide Level 30, Anion Gap 8, Blood Urea Nitrogen 23H, Creatinine 6.9H, Estimat Glomerular Filtration Rate 9.7, Glucose Level 99, Uric Acid 6.9, Calcium Level 8.8, Phosphorus Level 4.9, Magnesium Level 2.2, Total Bilirubin 0.7, Aspartate Amino Transf (AST/SGOT) 54H, Alanine Aminotransferase ( ALT/SGPT) 13, Alkaline Phosphatase 200H, C-Reactive Protein, Quantitative 17.4H , Pro-B-Type Natriuretic Peptide [id number], Total Protein 7.5, Albumin 2.0L, Globulin 5.5, Albumin/Globulin Ratio 0.4L Height (Feet): 5 Height (Inches): 10.00 Weight (Pounds): 185 General Appearance: confused Cardiovascular: tachycardia Respiratory/Chest: decreased breath sounds Abdomen: distended Objective no change Francisco Javier Abraham MD May 30, 2019 10:09
--- NOTE | 2019-05-30 11:38 | NUR ---
PT Note No treatment this date; patient having dialysis.
--- NOTE | 2019-05-30 13:22 | NUR ---
NURSE NOTES: Called primary MD regarding INR 5.7, and left message with Zachery. Addendum: 05/30/19 at 1525 by KHADAR LOCKHART RN NURSE NOTES: pt was seen and examined by covering MD for Dr. Haq and informed him about high INR 5.76 and potassium5.5 and received NNO at this time.
[2019-05-30] MEDS: Hydromorphone 0.5mg/0.5ml inj IVP PRN (14:00)
--- NOTE | 2019-05-30 15:26 | General Progress Note ---
Assessment/Plan Status: stable Assessment/Plan: 69 year oldrola a PMH of a fib on AC, ESRD on HD, anemia, htn, DM, COPD, HFPEF presented for acute hypoxemic respiratory failure # Acute Hypoxic Repiratory Failure likely 2/2 chf exacerbation - cardiac medications - echo with preserved EF 40-45 % - HD for fluid removal per Dr. Chen. HD 05/28 and next 05/30 - RT - breathing treatments - Pulm Consult appreciated # Supratherapeutic INR - hold coumadin - vit k +/- FFP if patient bleeds -> will give vit k IV x 1 05/30 - daily INR needed - Pharmacy to dose. # Hyponatremia likely hypervolemic from chf - HD - CTM # ESRD - HD by Nephrology, Last HD 05/28 # Afib with episodes of WCT and AF with aberrancy, Dr. Stone consultation appreciated. Dr. Villegas covering this week. Digoxin was stopped and Carvedilol 25 mg BID - cardiac meds being adjusted. - hold coumadin for now # Iron deficiency anemia - iron replacement # UTI due to Enterococcus F - Per sensitivities only Ampicillin and Vancomycin are appropriate. - Stop CTX and start Vancomycin per pharmacy today # Dysphagia with aspiration risk - Discussed with ST - Dietary adjustment - Daily ST and adjustments as needed - GI consultation for PEG completed. 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 - Await recommendations. Podiatry consult noted and vascular surgery pending. - Angiogram at [facility] th per request by vascular surg, transfer center aware # Full Code # Dispo- SNF (prior resident) - Request PT and OT evaluation for mobility I spent 38 min in addition to usual care on chart review including labs, studies , documentation by RN, MDs and OSH records. Subjective Date patient seen: May 30, 2019 Allergies: Coded Allergies: No Known Allergies (Verified , 07/21/11) Subjective no new complaints k up this am s/p HD INR remains elevated no e/o active bleeding Hb stable Objective Last 24 Hour Vital Signs Date Time Temp Pulse Resp B/P (MAP) Pulse Ox O2 Delivery O2 Flow Rate FiO2 05/30/19 10:02 97 Nasal Cannula 3.0 32 05/30/19 09:40 136/67 05/30/19 09:40 136/67 05/30/19 09:39 94 136/67 05/30/19 09:00 Nasal Cannula 2.0 05/30/19 08:00 98.1 94 23 136/67 (90) 97 05/30/19 04:00 97.9 73 20 127/62 (83) 97 05/30/19 00:00 97.9 70 22 116/60 (78) 97 05/29/19 22:20 Nasal Cannula 2.0 05/29/19 20:12 69 129/81 05/29/19 20:00 98.8 82 22 131/83 (99) 97 05/29/19 16:00 98.2 69 18 129/81 (97) 97 Intake and Output 05/29/19 05/30/19 19:00 07:00 Intake Total 350 ml Balance 350 ml Intake Oral 350 ml # Bowel Movements 1 Laboratory Tests 05/30/19 06:20: White Blood Count 9.1, Red Blood Count 3.70L, Hemoglobin 11.0L, Hematocrit 34.8L , Mean Corpuscular Volume 94, Mean Corpuscular Hemoglobin 29.9, Mean Corpuscular Hemoglobin Concent 31.7L, Red Cell Distribution Width 15.5H, Platelet Count 210, Mean Platelet Volume 6.2L, Neutrophils (%) (Auto) 64.3, Lymphocytes (%) (Auto) 22.4, Monocytes (%) (Auto) 8.2, Eosinophils (%) (Auto) 3.9H, Basophils (%) (Auto) 1.2, Prothrombin Time 54.9H, Prothromb Time International Ratio 5.7*H, Sodium Level 138, Potassium Level 5.5H, Chloride Level 100, Carbon Dioxide Level 30, Anion Gap 8, Blood Urea Nitrogen 23H, Creatinine 6.9H, Estimat Glomerular Filtration Rate 9.7, Glucose Level 99, Uric Acid 6.9, Calcium Level 8.8, Phosphorus Level 4.9, Magnesium Level 2.2, Total Bilirubin 0.7, Aspartate Amino Transf (AST/SGOT) 54H, Alanine Aminotransferase ( ALT/SGPT) 13, Alkaline Phosphatase 200H, C-Reactive Protein, Quantitative 17.4H , Pro-B-Type Natriuretic Peptide [id number], Total Protein 7.5, Albumin 2.0L, Globulin 5.5, Albumin/Globulin Ratio 0.4L Height (Feet): 5 Height (Inches): 10.00 Weight (Pounds): 185 Objective General Appearance: WD/WN EENT: PERRL/EOMI Neck: non-tender Cardiovascular: normal rate Respiratory/Chest: lungs clear Abdomen: non tender 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
[2019-05-30] MEDS ORDERED: Sodium Polystyrene Sulfonate 15gm Powder ORAL ONE (15:30)
--- NOTE | 2019-05-30 16:48 | Pulmonology Progress Note ---
Assessment/Plan Assessment/Plan Pulmonary Progress Note HPI Patient is a 69-year-old male with a history of Alzheimers Dementia, COPD, CHF with EF 25%, Hypertension, Pacemaker, CKD on HD, Previous CVA, chronic weakness , Diabetes, AO x1, presents with acute dyspnea, patient was at the conval[facility] house not taking his oxygen, he is oxygen dependent, has a history of COPD, he was hypoxic down to the low 80s, history is limited secondary to patient's dementia. 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 Stable overnight Allergies: No Known Allergies Past Medical History: Alzheimers Dementia, COPD, Hypertension, CHF with EF 25% , Pacemaker, CKD on HD, Previous CVA, chronic weakness, Diabetes All Other Systems: limited Physical Exam Vital Signs Noted General Appearance: no apparent distress, alert Head: normocephalic, atraumatic Eyes: bilateral eye PERRL, bilateral eye EOMI ENT: uvula midline, moist mucus membranes Neck: supple, thyroid normal, supple/symmetrical/no masses Respiratory: lungs clear, no respiratory distress, no retraction, no accessory muscle use, other - on non rebreather Cardiovascular: normal HS, normal peripheral pulses, no gallop, no murmur, tachycardia, irregular Gastrointestinal: non tender, soft, no guarding, no rebound Musculoskeletal: normal inspection Neurologic: awake, oriented x1, responsive Skin: no rash, warm/dry, no edema Impression: Dyspnea CHF with EF 25% HTN COPD Hypoxia - VQ negative for PE UTI (lower urinary tract infection) Alzheimer Dementia Plan - O2 PRN - HHN - IV Antibiotics for UTI - Monitor labs - PPX Laboratory Tests Noted EKG: Atrial fibrillation, rate 110, QTc 544, no acute ST elevations, normal axis Chest X-Ray: no consolidation, no pneumothorax, no acute cardiopulmonary disease Subjective ROS Limited/Unobtainable: No Allergies: Coded Allergies: No Known Allergies (Verified , 07/21/11) Objective Last 24 Hour Vital Signs Date Time Temp Pulse Resp B/P (MAP) Pulse Ox O2 Delivery O2 Flow Rate FiO2 05/30/19 10:02 97 Nasal Cannula 3.0 32 05/30/19 09:40 136/67 05/30/19 09:40 136/67 8/17/19 09:39 94 136/67 05/30/19 09:00 Nasal Cannula 2.0 05/30/19 08:00 98.1 94 23 136/67 (90) 97 05/30/19 04:00 97.9 73 20 127/62 (83) 97 05/30/19 00:00 97.9 70 22 116/60 (78) 97 05/29/19 22:20 Nasal Cannula 2.0 05/29/19 20:12 69 129/81 05/29/19 20:00 98.8 82 22 131/83 (99) 97 Intake and Output 05/29/19 05/30/19 18:59 06:59 Intake Total 350 ml Balance 350 ml Intake Oral 350 ml # Bowel Movements 1 Laboratory Tests 05/30/19 06:20: White Blood Count 9.1, Red Blood Count 3.70L, Hemoglobin 11.0L, Hematocrit 34.8L , Mean Corpuscular Volume 94, Mean Corpuscular Hemoglobin 29.9, Mean Corpuscular Hemoglobin Concent 31.7L, Red Cell Distribution Width 15.5H, Platelet Count 210, Mean Platelet Volume 6.2L, Neutrophils (%) (Auto) 64.3, Lymphocytes (%) (Auto) 22.4, Monocytes (%) (Auto) 8.2, Eosinophils (%) (Auto) 3.9H, Basophils (%) (Auto) 1.2, Prothrombin Time 54.9H, Prothromb Time International Ratio 5.7*H, Sodium Level 138, Potassium Level 5.5H, Chloride Level 100, Carbon Dioxide Level 30, Anion Gap 8, Blood Urea Nitrogen 23H, Creatinine 6.9H, Estimat Glomerular Filtration Rate 9.7, Glucose Level 99, Uric Acid 6.9, Calcium Level 8.8, Phosphorus Level 4.9, Magnesium Level 2.2, Total Bilirubin 0.7, Aspartate Amino Transf (AST/SGOT) 54H, Alanine Aminotransferase ( ALT/SGPT) 13, Alkaline Phosphatase 200H, C-Reactive Protein, Quantitative 17.4H , Pro-B-Type Natriuretic Peptide 57005C, Total Protein 7.5, Albumin 2.0L, Globulin 5.5, Albumin/Globulin Ratio 0.4L Current Medications Medications (Trade) Dose Ordered Sig/Divya Route PRN Reason Start Time Stop Time Status Last Admin Dose Admin Acetaminophen (Tylenol) 650 mg Q4H PRN ORAL Mild Pain (Pain Scale 1-3) 05/28/19 18:45 06/27/19 18:44 Acetaminophen (Tylenol) 650 mg Q4H PRN ORAL fever (temp>100.5F) 05/28/19 18:45 06/22/19 18:44 Aripiprazole (Abilify) 15 mg DAILY ORAL 05/29/19 09:00 06/23/19 08:59 05/30/19 09:39 Atorvastatin Calcium (Lipitor) 40 mg QHS ORAL 05/28/19 21:00 06/23/19 08:59 05/29/19 20:12 Carvedilol (Coreg) 25 mg EVERY 12 HOURS ORAL 05/28/19 21:00 06/23/19 20:59 05/30/19 09:39 Dextrose (Dextrose 50%) 25 ml Q30M PRN IV Hypoglycemia 05/28/19 18:45 06/22/19 18:14 Dextrose (Dextrose 50%) 50 ml Q30M PRN IV Hypoglycemia 05/28/19 18:45 06/22/19 18:14 Diphenhydramine HCl (Benadryl) 25 mg Q6H PRN ORAL Itching/Pruritis 05/28/19 18:45 06/27/19 18:44 05/30/19 01:58 Docusate Sodium (Colace) 100 mg THREE TIMES A DAY ORAL 05/29/19 09:00 06/23/19 12:59 05/30/19 12:29 Hydromorphone HCl (Dilaudid) 0.5 mg Q6H PRN IVP Severe Pain (Pain Scale 7-10) 05/28/19 18:45 06/04/19 18:44 05/30/19 14:00 Isosorbide Mononitrate (Imdur) 60 mg DAILY ORAL 05/29/19 09:00 06/23/19 08:59 05/30/19 09:40 Lisinopril (Zestril) 10 mg DAILY ORAL 05/29/19 09:00 06/23/19 08:59 05/30/19 09:40 Lorazepam (Ativan) 1 mg Q4H PRN ORAL For Anxiety 05/28/19 22:15 05/30/19 18:14 05/30/19 05:02 Metoclopramide HCl (Reglan) 10 mg Q6H PRN IVP Nausea & Vomiting 05/28/19 18:45 06/27/19 18:44 Mupirocin (Bactroban Oint) 1 applic BID TOPIC 05/29/19 09:00 05/30/19 18:01 05/30/19 11:01 Ondansetron HCl (Zofran) 4 mg Q6H PRN IVP Nausea & Vomiting 05/28/19 18:45 06/27/19 18:44 Pantoprazole (Protonix) 40 mg EVERY 12 HOURS ORAL 05/28/19 21:00 06/23/19 20:59 05/30/19 09:40 Prochlorperazine (Compazine) 10 mg Q6H PRN IVP Nausea & Vomiting 05/28/19 18:45 06/27/19 18:44 Sertraline HCl (Zoloft) 50 mg DAILY ORAL 05/29/19 09:00 06/23/19 08:59 05/30/19 09:39 Sevelamer Carbonate (Renvela) 1,600 mg THREE TIMES A DAY ORAL 05/29/19 09:00 06/23/19 08:59 05/30/19 12:29 Temazepam (Restoril) 15 mg HSPRN PRN ORAL Insomnia 05/29/19 21:00 05/30/19 20:59 Vancomycin HCl (Vanco rx to dose) 1 ea DAILY PRN MISC Per rx protocol 05/28/19 18:45 06/27/19 18:44 Vitamin B Complex/ Vit C/Folic Acid (Nephrovite) 1 tab DAILY ORAL 05/29/19 09:00 06/23/19 08:59 05/30/19 09:39 Navneet Bond MD May 30, 2019 16:48
--- NOTE | 2019-05-30 19:55 | NUR ---
NURSE NOTES: Patient is AO x1, eyes closed, responsive to name and tactile stimulation, on 2L nasal canula. Lying semi-badillo, resting, no difficulty breathing noted. IV site patent, asymptomatic, L dialysis port dressing clean dry and intact. Side rails up x3. Bed in lowest position and locked, bed alarm on. call light within reach. In report received that patient had dialysis and had 2.5 L removed. Will continue plan of care.
--- NOTE | 2019-05-30 20:42 | NUR ---
NURSE NOTES: Pt BP low at 80's over 50's, placed in trendelenberg and called MD for orders
--- NOTE | 2019-05-30 20:56 | NUR ---
NURSE NOTES: Called MD Haq, who returned my call within 1 minute. Pt BP is very low, taken multiple times now 72/45, pulse ox will not read at this time, on 2 L NC, HR 72-80, RR 20. Received order for 250 ml bolus NS to be inputted and carrier out. will continue to monitor patient.
[2019-05-30] MEDS: Atorvastatin 20mg tab ORAL SCH (21:00)
[2019-05-30] MEDS ORDERED: NS 250 ML IVPB ONE ×2 (21:15→22:45)
--- NOTE | 2019-05-30 21:30 | NUR ---
NURSE NOTES: Left voicemail with [facility], Dr Khanna is covering and am awaiting a response regarding pt low BP 68/40. will continue to monitor and await orders. Pt is responsive to name, pulse ranges from 60-98.
--- NOTE | 2019-05-30 22:53 | NUR ---
NURSE NOTES: Called Dr Haq, Dr Khanna is covering and returned my call. Told him BP remains low following the 250 ml bolus. Ordered another 250 ml bolus. BP prior to admin of second bolus is 68/40 mm Hg. Will continue to monitor pt.
--- NOTE | 2019-05-30 23:00 | Consultation ---
DATE OF CONSULTATION: 05/29/2019 VASCULAR SURGERY CONSULTATION CONSULTING PHYSICIAN: Kobe Doherty M.D. REFERRING PHYSICIAN: Nikolai Griffin D.P.M. REASON FOR CONSULTATION: Left fourth toe gangrene. HISTORY OF PRESENT ILLNESS: The patient is a 69-year-old male, who is a skilled nursing resident. He is currently in [facility]. The patient suffers from end-stage renal failure, on hemodialysis through a chest tunneled Perma-catheter. The patient was found to have left fourth toe gangrene. Vascular Surgery was consulted for further evaluation. The patient is awake, but confused. All the history obtained from the medical records. PAST MEDICAL HISTORY: As above. Nonambulatory skilled nursing resident; end-stage renal failure, on hemodialysis; right chest Perma-catheter; history of thrombosed right arm AV shunt placed by other physician; diabetes mellitus; paroxysmal atrial fibrillation, on anticoagulation; encephalopathy; dementia; and calcific PAD. MEDICATIONS: See attached MAR. ALLERGIES: No known drug allergies. SOCIAL HISTORY: Unobtainable. FAMILY HISTORY: Unobtainable. REVIEW OF SYSTEMS: Unobtainable due to altered mental status. PHYSICAL EXAMINATION: VITAL SIGNS: The patient is currently afebrile at 97.7 degrees, heart rate is 100, blood pressure is 140/58, and respirations 18. GENERAL: The patient is awake, but confused. He has palpable radial pulses. Right arm AV shunt has absent thrill. Site is clean, dry, and intact. CHEST: Perma-cath site is clean, dry, and intact. LUNGS: Clear to auscultation. HEART: Rate is irregular. ABDOMEN: Soft and nontender. EXTREMITIES: He has palpable femoral pulses. Absent popliteal and pedal pulses bilaterally. Feet are warm. He does have intact pedal Dopplers. Left fourth toe had a dry distal toe gangrene with no infection. IMPRESSION: 1. 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 2. Multiple risk factors with history of end-stage renal failure, on hemodialysis; thrombosed right arm AV shunt, currently on dialysis through chest Perma-catheter; diabetes mellitus; hypertension; arrhythmia; atrial fibrillation, on Coumadin anticoagulation; nonambulatory skilled nursing resident; dementia; and poor nutrition, failed swallow. PLAN AND RECOMMENDATIONS: 1. Medical optimization in progress. We will complete his noninvasive imaging with duplex and CT angiography of the aorta and lower extremity to delineate his vasculopathy. Should also have bilateral arm vein mapping and duplex. 2. The patient will strongly benefit from selective left leg angiography to assess for percutaneous revascularization prior to left fourth toe gangrene amputation by Podiatry service. 3. As for more permanent hemodialysis access, the patient will require bilateral upper arm venogram to assess the vein and central veins prior to new arm AV shunt placement. The above was discussed at length with the patient's nurse and the primary and Podiatry service. Kobe Doherty M.D. DR: Yue JOB#: [id number] CC: Maurizio Haq M.D.; Fax#: [phone] NIKOLAI GRIFFIN D.P.M. ; FAX#: [phone] Gaby Cavanaugh M.D. [facility]
--- NOTE | 2019-05-30 23:12 | NUR ---
NURSE NOTES: BP increased to 91/56, will continue to monitor.
[2019-05-31] VITALS (7 sets, daily range): BP systolic 78–122; BP diastolic 55–92
[2019-05-31 04:39] LABS: BASOPHILS % (AUTO) 1.1 % (0.0-2.0); EOSINOPHILS % (AUTO) 2.4 % (0.0-3.0); HEMATOCRIT 35.8 % (42.0-52.0); HEMOGLOBIN 10.9 G/DL (14.2-18.0); LYMPHOCYTES % (AUTO) 21.6 % (20.0-45.0); MEAN CORPUSCULAR VOLUME 97 FL (80-99); MONOCYTES % (AUTO) 8.2 % (1.0-10.0); NEUTROPHILS % (AUTO) 66.7 % (45.0-75.0); PLATELET COUNT 196 K/UL (150-450); RED CELL DISTRIBUTION WIDTH 15.2 % (11.6-14.8); WHITE BLOOD COUNT 9.3 K/UL (4.8-10.8)
[2019-05-31 04:58] LABS: AMMONIA 25 umol/L (11-32)
[2019-05-31 05:02] LABS: ALANINE AMINOTRANSFERASE 8 U/L (12-78); ALBUMIN/GLOBULIN RATIO 0.4 (1.0-2.7); ALKALINE PHOSPHATASE 190 U/L (46-116); ANION GAP 10 mmol/L (5-15); ASPARTATE AMINO TRANSFERASE 24 U/L (15-37); BILIRUBIN,TOTAL 0.6 MG/DL (0.2-1.0); BLOOD UREA NITROGEN 19 mg/dL (7-18); CALCIUM 8.7 MG/DL (8.5-10.1); CARBON DIOXIDE 26 MMOL/L (21-32); CHLORIDE 105 MMOL/L (98-107); GAMMA GLUTAMYL TRANSPEPTIDASE 26 U/L (5-85); PHOSPHORUS 4.7 MG/DL (2.5-4.9); POTASSIUM 4.6 MMOL/L (3.5-5.1); SODIUM 141 MMOL/L (136-145)
[2019-05-31] MEDS: Hydromorphone 0.5mg/0.5ml inj IVP PRN ×2 (05:39→21:53)
--- NOTE | 2019-05-31 05:48 | General Progress Note ---
Assessment/Plan Status: stable Assessment/Plan: Assessment/Plan: Assessment - CVA / AMS / Delirium - compromised swallow - elevated INR - COPD - CHF, reduced EF Recommendations - Family agreed to PEG - will place feeding tube this week once INR corrected - aspiration precautions - Elevate HOB Subjective ROS Limited/Unobtainable: Yes Allergies: Coded Allergies: No Known Allergies (Verified , 07/21/11) Objective Last 24 Hour Vital Signs Date Time Temp Pulse Resp B/P (MAP) Pulse Ox O2 Delivery O2 Flow Rate FiO2 05/31/19 04:00 96.8 99 21 101/64 (76) 95 05/31/19 00:00 97.0 115 21 94/60 (71) 95 05/30/19 21:00 Nasal Cannula 2.0 05/30/19 21:00 85 72/45 05/30/19 20:55 97.2 85 20 72/45 (54) 05/30/19 20:00 97.8 85 21 82/41 (55) 95 05/30/19 19:59 97 Nasal Cannula 3.0 32 05/30/19 16:00 98.7 96 18 104/70 (81) 96 05/30/19 12:00 98.0 98 20 114/65 (81) 97 05/30/19 10:02 97 Nasal Cannula 3.0 32 05/30/19 09:40 136/67 05/30/19 09:40 136/67 05/30/19 09:39 94 136/67 05/30/19 09:00 Nasal Cannula 2.0 05/30/19 08:00 98.1 94 23 136/67 (90) 97 Intake and Output 05/30/19 05/31/19 19:00 07:00 Output Total 2500 ml Balance -2500 ml Hemodialysis UF 2500 ml Laboratory Tests 05/30/19 06:20: White Blood Count 9.1, Red Blood Count 3.70L, Hemoglobin 11.0L, Hematocrit 34.8L , Mean Corpuscular Volume 94, Mean Corpuscular Hemoglobin 29.9, Mean Corpuscular Hemoglobin Concent 31.7L, Red Cell Distribution Width 15.5H, Platelet Count 210, Mean Platelet Volume 6.2L, Neutrophils (%) (Auto) 64.3, Lymphocytes (%) (Auto) 22.4, Monocytes (%) (Auto) 8.2, Eosinophils (%) (Auto) 3.9H, Basophils (%) (Auto) 1.2, Prothrombin Time 54.9H, Prothromb Time International Ratio 5.7*H, Sodium Level 138, Potassium Level 5.5H, Chloride Level 100, Carbon Dioxide Level 30, Anion Gap 8, Blood Urea Nitrogen 23H, Creatinine 6.9H, Estimat Glomerular Filtration Rate 9.7, Glucose Level 99, Uric Acid 6.9, Calcium Level 8.8, Phosphorus Level 4.9, Magnesium Level 2.2, Total Bilirubin 0.7, Aspartate Amino Transf (AST/SGOT) 54H, Alanine Aminotransferase ( ALT/SGPT) 13, Alkaline Phosphatase 200H, C-Reactive Protein, Quantitative 17.4H , Pro-B-Type Natriuretic Peptide 99067B, Total Protein 7.5, Albumin 2.0L, Globulin 5.5, Albumin/Globulin Ratio 0.4L 05/31/19 04:30: White Blood Count 9.3, Red Blood Count 3.70L, Hemoglobin 10.9L, Hematocrit 35.8L , Mean Corpuscular Volume 97, Mean Corpuscular Hemoglobin 29.3, Mean Corpuscular Hemoglobin Concent 30.4L, Red Cell Distribution Width 15.2H, Platelet Count 196, Mean Platelet Volume 5.9L, Neutrophils (%) (Auto) 66.7, Lymphocytes (%) (Auto) 21.6, Monocytes (%) (Auto) 8.2, Eosinophils (%) (Auto) 2.4, Basophils (%) (Auto) 1.1, Sodium Level 141, Potassium Level 4.6, Chloride Level 105, Carbon Dioxide Level 26, Anion Gap 10, Blood Urea Nitrogen 19H, Creatinine 6.0H, Estimat Glomerular Filtration Rate 11.3, Glucose Level 103, Uric Acid 6.0, Calcium Level 8.7, Phosphorus Level 4.7, Magnesium Level 2.1, Total Bilirubin 0.6, Aspartate Amino Transf (AST/SGOT) 24, Alanine Aminotransferase (ALT/SGPT) 8L, Alkaline Phosphatase 190H, C-Reactive Protein, Quantitative 19.2H, Pro-B-Type Natriuretic Peptide 23125V, Total Protein 7.1, Albumin 2.0L, Globulin 5.1, Albumin/Globulin Ratio 0.4L, Gamma Glutamyl Transpeptidase 26, Ammonia 25, Random Vancomycin Level 17.7 Height (Feet): 5 Height (Inches): 10.00 Weight (Pounds): 186 General Appearance: no apparent distress EENT: normal ENT inspection Neck: supple Cardiovascular: normal rate Respiratory/Chest: decreased breath sounds Abdomen: normal bowel sounds, non tender, soft Extremities: non-tender Jose C Kinney MD May 31, 2019 05:48
[2019-05-31 07:01] LABS: INR 6.2 (0.9-1.1)
--- NOTE | 2019-05-31 07:11 | NUR ---
HAND-OFF: Report given to KALEIGH Lombardo.
--- NOTE | 2019-05-31 07:19 | NUR ---
HAND-OFF: Report given to Munira Endorsed critical lab value of INR 6.2 to follow up. Left voicemail with the exchange. Dr Alcala is covering for Dr Haq and [facility] [place] [facility] [place] if new orders are given or to receive acknowledgement of results
--- NOTE | 2019-05-31 07:22 | NUR ---
NURSE NOTES: Pt awake, A/O x 1, anxious. Dressing on , CDI, bed alarm on. bed in low position. fall precaution maintained. will continue to monitor.
--- NOTE | 2019-05-31 07:59 | NUR ---
Left message to Dr. Alcala regarding INR 6.2, Hr 124, pts anxious. waiting for call back.
--- NOTE | 2019-05-31 08:12 | NUR ---
MD called back , phone call got disconnected. left second message to MD re INR 6.2, HR 124, anxiety.
[2019-05-31] MEDS: Lisinopril 10mg tab ORAL SCH (08:23)
[2019-05-31] MEDS: Carvedilol 25mg Tab ORAL SCH ×2 (08:24→21:00)
[2019-05-31] MEDS: Imdur 30mg tab ORAL SCH (08:25)
[2019-05-31] MEDS: Nephrovite tab (Rena-Vite) ORAL SCH (08:26)
[2019-05-31] MEDS: Sertraline 50mg tab ORAL SCH (08:26)
[2019-05-31] MEDS ORDERED: Vancomycin 500mg/D5W 110ml IVPB ONE ×2 (09:00)
[2019-05-31] MEDS: Docusate 100mg cap ORAL SCH ×3 (09:00→17:09)
--- NOTE | 2019-05-31 09:46 | Cardiology Progress Note ---
Assessment/Plan Status: stable Assessment/Plan Assessment/Plan Assessment/Plan 1. Wide complex tachycardia. Atrial fibrillation No evidence of pre excitation His echocardiogram showed EF of 40 to 45 percent. Increase coreg to 25 mg BID Prn cardizem rates >110 D/c digoxin in light of renal disease and hyperkalemia 2. Elevated INR Hold coumadin per pharmacy FFP Vitamin K PEG tube to be placed when INR <2 3. Hypertension. Continue current medical therapy. 4. Congestive heart failure with EF of 40 to 45 percent Multifactorial Ischemia evaluation when stable due to risk factors 5. COPD. stable 6. UTI. On antibiotics. 7. End-stage renal disease, on hemodialysis. Subjective Cardiovascular: Reports: no symptoms Respiratory: Reports: no symptoms Gastrointestinal/Abdominal: Reports: no symptoms Subjective Coverage for [place] Remains tachycardic but rates better controlled, BP stable, no acute events, no distress, nursing notes reviewed, d/w Internal medicine INR increasing to 6 today, s/p vitamin K on 05/30 Plant for PEG when INR corrected Objective Last 24 Hour Vital Signs Date Time Temp Pulse Resp B/P (MAP) Pulse Ox O2 Delivery O2 Flow Rate FiO2 05/31/19 08:25 122/92 05/31/19 08:24 124 122/92 05/31/19 08:23 122/92 05/31/19 08:00 97.5 124 22 122/92 (102) 95 05/31/19 04:00 96.8 99 21 101/64 (76) 95 05/31/19 00:00 97.0 115 21 94/60 (71) 95 05/30/19 21:00 Nasal Cannula 2.0 05/30/19 21:00 85 72/45 05/30/19 20:55 97.2 85 20 72/45 (54) 05/30/19 20:00 97.8 85 21 82/41 (55) 95 05/30/19 19:59 97 Nasal Cannula 3.0 32 05/30/19 16:00 98.7 96 18 104/70 (81) 96 05/30/19 12:00 98.0 98 20 114/65 (81) 97 05/30/19 10:02 97 Nasal Cannula 3.0 32 General Appearance: no apparent distress, alert EENT: PERRL/EOMI, normal ENT inspection, TMs normal, pharynx normal Neck: non-tender, normal alignment, supple, normal inspection, no JVD Rhythm: Afib Cardiovascular: regularly irregular, tachycardia Respiratory/Chest: chest wall non-tender, lungs clear, normal breath sounds Abdomen: normal bowel sounds, non tender, soft, no organomegaly Extremities: normal range of motion 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: 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 grossly normal, no motor/sensory deficits Intake and Output 05/30/19 05/31/19 19:00 07:00 Intake Total 350 ml Output Total 2500 ml 2500 ml Balance -2500 ml -2150 ml Intake Oral 350 ml Hemodialysis UF 2500 ml 2500 ml # Voids 4 # Bowel Movements 1 Laboratory Tests Test 05/31/19 04:30 05/31/19 06:32 White Blood Count 9.3 K/UL (4.8-10.8) Red Blood Count 3.70 M/UL (4.70-6.10) L Hemoglobin 10.9 G/DL (14.2-18.0) L Hematocrit 35.8 % (42.0-52.0) L Mean Corpuscular Volume 97 FL (80-99) Mean Corpuscular Hemoglobin 29.3 PG (27.0-31.0) Mean Corpuscular Hemoglobin Concent 30.4 G/DL (32.0-36.0) L Red Cell Distribution Width 15.2 % (11.6-14.8) H Platelet Count 196 K/UL (150-450) Mean Platelet Volume 5.9 FL (6.5-10.1) L Neutrophils (%) (Auto) 66.7 % (45.0-75.0) Lymphocytes (%) (Auto) 21.6 % (20.0-45.0) Monocytes (%) (Auto) 8.2 % (1.0-10.0) Eosinophils (%) (Auto) 2.4 % (0.0-3.0) Basophils (%) (Auto) 1.1 % (0.0-2.0) Sodium Level 141 MMOL/L (136-145) Potassium Level 4.6 MMOL/L (3.5-5.1) Chloride Level 105 MMOL/L (98-107) Carbon Dioxide Level 26 MMOL/L (21-32) Anion Gap 10 mmol/L (5-15) Blood Urea Nitrogen 19 mg/dL (7-18) H Creatinine 6.0 MG/DL (0.55-1.30) H Estimat Glomerular Filtration Rate 11.3 mL/min (>60) Glucose Level 103 MG/DL (74-106) Uric Acid 6.0 MG/DL (2.6-7.2) Calcium Level 8.7 MG/DL (8.5-10.1) Phosphorus Level 4.7 MG/DL (2.5-4.9) Magnesium Level 2.1 MG/DL (1.8-2.4) Total Bilirubin 0.6 MG/DL (0.2-1.0) Gamma Glutamyl Transpeptidase 26 U/L (5-85) Aspartate Amino Transf (AST/SGOT) 24 U/L (15-37) Alanine Aminotransferase (ALT/SGPT) 8 U/L (12-78) L Alkaline Phosphatase 190 U/L (46-116) H Ammonia 25 umol/L (11-32) C-Reactive Protein, Quantitative 19.2 mg/dL (0.00-0.90) H Pro-B-Type Natriuretic Peptide 97288 pg/mL (0-125) H Total Protein 7.1 G/DL (6.4-8.2) Albumin 2.0 G/DL (3.4-5.0) L Globulin 5.1 g/dL Albumin/Globulin Ratio 0.4 (1.0-2.7) L Random Vancomycin Level 17.7 ug/mL Prothrombin Time 59.6 SEC (9.30-11.50) H Prothromb Time International Ratio 6.2 (0.9-1.1) *H Navneet Villegas MD May 31, 2019 09:46
--- NOTE | 2019-05-31 09:47 | NUR ---
NURSE NOTES: Received new order from Dr. Alcala
[2019-05-31] MEDS ORDERED: Phytonadione 1 MG in D5W 55 ML IVPB ONE (10:00)
--- NOTE | 2019-05-31 11:01 | Pulmonology Progress Note ---
Assessment/Plan Assessment/Plan Pulmonary Progress Note HPI Patient is a 69-year-old male with a history of Alzheimers Dementia, COPD, CHF with EF 25%, Hypertension, Pacemaker, CKD on HD, Previous CVA, chronic weakness , Diabetes, AO x1, presents with acute dyspnea, patient was at the convalescent house not taking his oxygen, he is oxygen dependent, has a history of COPD, he was hypoxic down to the low 80s, history is limited secondary to patient's dementia. 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 Stable overnight Allergies: No Known Allergies Past Medical History: Alzheimers Dementia, COPD, Hypertension, CHF with EF 25% , Pacemaker, CKD on HD, Previous CVA, chronic weakness, Diabetes All Other Systems: limited Physical Exam Vital Signs Noted General Appearance: no apparent distress, alert Head: normocephalic, atraumatic Eyes: bilateral eye PERRL, bilateral eye EOMI ENT: uvula midline, moist mucus membranes Neck: supple, thyroid normal, supple/symmetrical/no masses Respiratory: lungs clear, no respiratory distress, no retraction, no accessory muscle use, other - on non rebreather Cardiovascular: normal HS, normal peripheral pulses, no gallop, no murmur, tachycardia, irregular Gastrointestinal: non tender, soft, no guarding, no rebound Musculoskeletal: normal inspection Neurologic: awake, oriented x1, responsive Skin: no rash, warm/dry, no edema Impression: Dyspnea CHF with EF 25% HTN COPD Hypoxia - VQ negative for PE UTI (lower urinary tract infection) Alzheimer Dementia Plan - O2 PRN - HHN - IV Antibiotics for UTI - Monitor labs - PPX Laboratory Tests Noted EKG: Atrial fibrillation, rate 110, QTc 544, no acute ST elevations, normal axis Chest X-Ray: no consolidation, no pneumothorax, no acute cardiopulmonary disease Subjective ROS Limited/Unobtainable: No Allergies: Coded Allergies: No Known Allergies (Verified , 07/21/11) Objective Last 24 Hour Vital Signs Date Time Temp Pulse Resp B/P (MAP) Pulse Ox O2 Delivery O2 Flow Rate FiO2 05/31/19 09:00 Nasal Cannula 2.0 05/31/19 08:25 122/92 05/31/19 08:24 124 122/92 05/31/19 08:23 122/92 05/31/19 08:00 97.5 124 22 122/92 (102) 95 05/31/19 04:00 96.8 99 21 101/64 (76) 95 05/31/19 00:00 97.0 115 21 94/60 (71) 95 05/30/19 21:00 Nasal Cannula 2.0 05/30/19 21:00 85 72/45 05/30/19 20:55 97.2 85 20 72/45 (54) 05/30/19 20:00 97.8 85 21 82/41 (55) 95 05/30/19 19:59 97 Nasal Cannula 3.0 32 05/30/19 16:00 98.7 96 18 104/70 (81) 96 05/30/19 12:00 98.0 98 20 114/65 (81) 97 Intake and Output 05/30/19 05/31/19 19:00 07:00 Intake Total 350 ml Output Total 2500 ml 2500 ml Balance -2500 ml -2150 ml Intake Oral 350 ml Hemodialysis UF 2500 ml 2500 ml # Voids 4 # Bowel Movements 1 Laboratory Tests 05/31/19 04:30: White Blood Count 9.3, Red Blood Count 3.70L, Hemoglobin 10.9L, Hematocrit 35.8L , Mean Corpuscular Volume 97, Mean Corpuscular Hemoglobin 29.3, Mean Corpuscular Hemoglobin Concent 30.4L, Red Cell Distribution Width 15.2H, Platelet Count 196, Mean Platelet Volume 5.9L, Neutrophils (%) (Auto) 66.7, Lymphocytes (%) (Auto) 21.6, Monocytes (%) (Auto) 8.2, Eosinophils (%) (Auto) 2.4, Basophils (%) (Auto) 1.1, Sodium Level 141, Potassium Level 4.6, Chloride Level 105, Carbon Dioxide Level 26, Anion Gap 10, Blood Urea Nitrogen 19H, Creatinine 6.0H, Estimat Glomerular Filtration Rate 11.3, Glucose Level 103, Uric Acid 6.0, Calcium Level 8.7, Phosphorus Level 4.7, Magnesium Level 2.1, Total Bilirubin 0.6, Gamma Glutamyl Transpeptidase 26, Aspartate Amino Transf ( AST/SGOT) 24, Alanine Aminotransferase (ALT/SGPT) 8L, Alkaline Phosphatase 190H , Ammonia 25, C-Reactive Protein, Quantitative 19.2H, Pro-B-Type Natriuretic Peptide 56651H, Total Protein 7.1, Albumin 2.0L, Globulin 5.1, Albumin/Globulin Ratio 0.4L, Random Vancomycin Level 17.7 05/31/19 06:32: Prothrombin Time 59.6H, Prothromb Time International Ratio 6.2*H Current Medications Medications (Trade) Dose Ordered Sig/Divya Route PRN Reason Start Time Stop Time Status Last Admin Dose Admin Acetaminophen (Tylenol) 650 mg Q4H PRN ORAL Mild Pain (Pain Scale 1-3) 05/28/19 18:45 06/27/19 18:44 Acetaminophen (Tylenol) 650 mg Q4H PRN ORAL fever (temp>100.5F) 05/28/19 18:45 06/22/19 18:44 Aripiprazole (Abilify) 15 mg DAILY ORAL 05/29/19 09:00 06/23/19 08:59 05/31/19 08:24 Atorvastatin Calcium (Lipitor) 40 mg QHS ORAL 05/28/19 21:00 06/23/19 08:59 05/29/19 20:12 Carvedilol (Coreg) 25 mg EVERY 12 HOURS ORAL 05/28/19 21:00 06/23/19 20:59 05/31/19 08:24 Dextrose (Dextrose 50%) 25 ml Q30M PRN IV Hypoglycemia 05/28/19 18:45 06/22/19 18:14 Dextrose (Dextrose 50%) 50 ml Q30M PRN IV Hypoglycemia 05/28/19 18:45 06/22/19 18:14 Diphenhydramine HCl (Benadryl) 25 mg Q6H PRN ORAL Itching/Pruritis 05/28/19 18:45 06/27/19 18:44 05/30/19 01:58 Docusate Sodium (Colace) 100 mg THREE TIMES A DAY ORAL 05/29/19 09:00 06/23/19 12:59 05/30/19 18:46 Hydromorphone HCl (Dilaudid) 0.5 mg Q6H PRN IVP Severe Pain (Pain Scale 7-10) 05/28/19 18:45 06/04/19 18:44 05/31/19 05:39 Isosorbide Mononitrate (Imdur) 60 mg DAILY ORAL 05/29/19 09:00 06/23/19 08:59 05/31/19 08:25 Lisinopril (Zestril) 10 mg DAILY ORAL 05/29/19 09:00 06/23/19 08:59 05/31/19 08:23 Metoclopramide HCl (Reglan) 10 mg Q6H PRN IVP Nausea & Vomiting 05/28/19 18:45 06/27/19 18:44 Ondansetron HCl (Zofran) 4 mg Q6H PRN IVP Nausea & Vomiting 05/28/19 18:45 06/27/19 18:44 Pantoprazole (Protonix) 40 mg EVERY 12 HOURS ORAL 05/28/19 21:00 06/23/19 20:59 05/31/19 08:26 Prochlorperazine (Compazine) 10 mg Q6H PRN IVP Nausea & Vomiting 05/28/19 18:45 06/27/19 18:44 Quetiapine Fumarate (SEROquel) 12.5 mg Q8H PRN ORAL aggitation 05/31/19 09:00 06/30/19 08:59 Sertraline HCl (Zoloft) 50 mg DAILY ORAL 05/29/19 09:00 06/23/19 08:59 05/31/19 08:26 Sevelamer Carbonate (Renvela) 1,600 mg THREE TIMES A DAY ORAL 05/29/19 09:00 06/23/19 08:59 05/31/19 08:26 Vancomycin HCl (Vanco rx to dose) 1 ea DAILY PRN MISC Per rx protocol 05/28/19 18:45 06/27/19 18:44 Vitamin B Complex/ Vit C/Folic Acid (Nephrovite) 1 tab DAILY ORAL 05/29/19 09:00 06/23/19 08:59 05/31/19 08:26 Navneet Bond MD May 31, 2019 11:01
--- NOTE | 2019-05-31 12:39 | Nephrology Progress Note ---
Assessment/Plan Problem List: (1) ESRF (end stage renal failure) (2) Cardiomyopathy Assessment: 40% Ej Fx (3) COPD (chronic obstructive pulmonary disease) (4) Anemia Assessment presents with SOB: CHF vs COPD Exacerbation ESRD CHF with previous Echo showing Ej Fx 40 % h/o At fib DM HTN Anemia COPD recent ear infection Plan HD next Optimize cardiac condition BP and BS check and control Discussed with Dr Chucky Hayes and Dig adjust mind altering meds per PMD per orders med surg?? Subjective ROS Limited/Unobtainable: No Constitutional: Reports: malaise Objective Objective Last 24 Hour Vital Signs Date Time Temp Pulse Resp B/P (MAP) Pulse Ox O2 Delivery O2 Flow Rate FiO2 05/31/19 12:00 97.7 103 18 98/55 (69) 92 05/31/19 09:00 Nasal Cannula 2.0 05/31/19 08:25 122/92 05/31/19 08:24 124 122/92 05/31/19 08:23 122/92 05/31/19 08:00 97.5 124 22 122/92 (102) 95 05/31/19 04:00 96.8 99 21 101/64 (76) 95 05/31/19 00:00 97.0 115 21 94/60 (71) 95 05/30/19 21:00 Nasal Cannula 2.0 05/30/19 21:00 85 72/45 05/30/19 20:55 97.2 85 20 72/45 (54) 05/30/19 20:00 97.8 85 21 82/41 (55) 95 05/30/19 19:59 97 Nasal Cannula 3.0 32 05/30/19 16:00 98.7 96 18 104/70 (81) 96 Intake and Output 05/30/19 05/31/19 19:00 07:00 Intake Total 350 ml Output Total 2500 ml 2500 ml Balance -2500 ml -2150 ml Intake Oral 350 ml Hemodialysis UF 2500 ml 2500 ml # Voids 4 # Bowel Movements 1 Laboratory Tests 05/31/19 04:30: White Blood Count 9.3, Red Blood Count 3.70L, Hemoglobin 10.9L, Hematocrit 35.8L , Mean Corpuscular Volume 97, Mean Corpuscular Hemoglobin 29.3, Mean Corpuscular Hemoglobin Concent 30.4L, Red Cell Distribution Width 15.2H, Platelet Count 196, Mean Platelet Volume 5.9L, Neutrophils (%) (Auto) 66.7, Lymphocytes (%) (Auto) 21.6, Monocytes (%) (Auto) 8.2, Eosinophils (%) (Auto) 2.4, Basophils (%) (Auto) 1.1, Sodium Level 141, Potassium Level 4.6, Chloride Level 105, Carbon Dioxide Level 26, Anion Gap 10, Blood Urea Nitrogen 19H, Creatinine 6.0H, Estimat Glomerular Filtration Rate 11.3, Glucose Level 103, Uric Acid 6.0, Calcium Level 8.7, Phosphorus Level 4.7, Magnesium Level 2.1, Total Bilirubin 0.6, Gamma Glutamyl Transpeptidase 26, Aspartate Amino Transf ( AST/SGOT) 24, Alanine Aminotransferase (ALT/SGPT) 8L, Alkaline Phosphatase 190H , Ammonia 25, C-Reactive Protein, Quantitative 19.2H, Pro-B-Type Natriuretic Peptide 70667Y, Total Protein 7.1, Albumin 2.0L, Globulin 5.1, Albumin/Globulin Ratio 0.4L, Random Vancomycin Level 17.7 05/31/19 06:32: Prothrombin Time 59.6H, Prothromb Time International Ratio 6.2*H Height (Feet): 5 Height (Inches): 10.00 Weight (Pounds): 186 General Appearance: no apparent distress Cardiovascular: normal rate Respiratory/Chest: decreased breath sounds Abdomen: soft Objective no change Francisco Javier Abraham MD May 31, 2019 12:39
--- NOTE | 2019-05-31 12:57 | NUR ---
NURSE NOTES: call [facility] regarding HD 06/01/2019, waiting for HD nurse to call back. Addendum: 05/31/19 at 1622 by Munira Chase RN received call back from [facility] nurse regarding 06/01/2019 appt, will see pt .
--- NOTE | 2019-05-31 13:05 | NUR ---
NURSE NOTES: Received telephone consent from Sendy Davis (pts ), regarding EGD/PEG placement .
--- NOTE | 2019-05-31 16:19 | NUR ---
NURSE NOTES: Pts BP low, 78/55, HR 97, 2 L via NC, sat 98% O2 . left message to MD, waiting for call Back.
--- NOTE | 2019-05-31 16:20 | NUR ---
NURSE NOTES: NURSE NOTES: Received new order for low BP /IVF bolus and CBC stat. Will continue to monitor.
[2019-05-31 17:12] LABS: BASOPHILS % (AUTO) 2.6 % (0.0-2.0); EOSINOPHILS % (AUTO) 2.4 % (0.0-3.0); HEMATOCRIT 29.4 % (42.0-52.0); HEMOGLOBIN 9.7 G/DL (14.2-18.0); LYMPHOCYTES % (AUTO) 16.5 % (20.0-45.0); MEAN CORPUSCULAR VOLUME 90 FL (80-99); MONOCYTES % (AUTO) 8.5 % (1.0-10.0); NEUTROPHILS % (AUTO) 69.9 % (45.0-75.0); PLATELET COUNT 203 K/UL (150-450); RED BLOOD COUNT 3.26 M/UL (4.70-6.10); RED CELL DISTRIBUTION WIDTH 14.5 % (11.6-14.8); WHITE BLOOD COUNT 10.5 K/UL (4.8-10.8)
--- NOTE | 2019-05-31 17:23 | NUR ---
NURSE NOTES: Dressing changed per order sacral and heels. BLE elevated on pillow. turned and repositioned q2hrs. will continue to monitor. Addendum: 05/31/19 at 1736 by Munira Chase RN used Betadine left 4th toe, open to air.
--- NOTE | 2019-05-31 17:28 | NUR ---
NURSE NOTES: Patient is AO x1, eyes closed, responsive to name and tactile stimulation, on 2L nasal canula. Lying semi-badillo, resting, no difficulty breathing noted. IV site patent, asymptomatic, L dialysis port dressing clean dry and intact. Side rails up x3. Bed in lowest position and locked, bed alarm on. call light within reach. Will continue plan of care.
--- NOTE | 2019-05-31 17:36 | General Progress Note ---
Assessment/Plan Status: stable Assessment/Plan: 69 year oldrola a PMH of a fib on AC, ESRD on HD, anemia, htn, DM, COPD, HFPEF presented for acute hypoxemic respiratory failure #Toxic metabolic encephalopathy #Hospital delirium - non violent restraints - prn seroquel 12.5 for agitation - delirium precautions # Acute Hypoxic Repiratory Failure likely 2/2 chf exacerbation - cardiac medications - echo with preserved EF 40-45 % - HD for fluid removal per Dr. Chen. HD 05/28 and next 05/30 - RT - breathing treatments - Pulm Consult appreciated # Supratherapeutic INR - hold coumadin - vit k +/- FFP if patient bleeds -> 2.5mg vit po given 05/31 - daily INR needed - Pharmacy to dose. # Hyponatremia likely hypervolemic from chf - HD - CTM # ESRD - HD by Nephrology, Last HD 05/28 # Afib with episodes of WCT and AF with aberrancy, Dr. Stone consultation appreciated. Dr. Villegas covering this week. Digoxin was stopped and Carvedilol 25 mg BID - cardiac meds being adjusted. - hold coumadin for now # Iron deficiency anemia - iron replacement # UTI due to Enterococcus F - Per sensitivities only Ampicillin and Vancomycin are appropriate. - Stop CTX and start Vancomycin per pharmacy today # Dysphagia with aspiration risk - Discussed with ST - Dietary adjustment - Daily ST and adjustments as needed - GI consultation for PEG completed. 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 - Await recommendations. Podiatry consult noted and vascular surgery pending. - Angiogram at [facility] per request by vascular surg, transfer center aware # Full Code # Dispo- SNF (prior resident) - Request PT and OT evaluation for mobility I spent 38 min in addition to usual care on chart review including labs, studies , documentation by RN, MDs and OSH records. Subjective Date patient seen: May 31, 2019 Allergies: Coded Allergies: No Known Allergies (Verified , 07/21/11) Subjective Agitated requiring restraints and sedation Objective Last 24 Hour Vital Signs Date Time Temp Pulse Resp B/P (MAP) Pulse Ox O2 Delivery O2 Flow Rate FiO2 05/31/19 16:00 97.7 97 18 78/55 (63) 98 05/31/19 12:00 97.7 103 18 98/55 (69) 92 05/31/19 09:00 Nasal Cannula 2.0 05/31/19 08:25 122/92 05/31/19 08:24 124 122/92 05/31/19 08:23 122/92 05/31/19 08:00 97.5 124 22 122/92 (102) 95 05/31/19 04:00 96.8 99 21 101/64 (76) 95 05/31/19 00:00 97.0 115 21 94/60 (71) 95 05/30/19 21:00 Nasal Cannula 2.0 05/30/19 21:00 85 72/45 05/30/19 20:55 97.2 85 20 72/45 (54) 05/30/19 20:00 97.8 85 21 82/41 (55) 95 05/30/19 19:59 97 Nasal Cannula 3.0 32 Intake and Output 05/30/19 05/31/19 19:00 07:00 Intake Total 350 ml Output Total 2500 ml 2500 ml Balance -2500 ml -2150 ml Intake Oral 350 ml Hemodialysis UF 2500 ml 2500 ml # Voids 4 # Bowel Movements 1 Laboratory Tests 05/31/19 04:30: White Blood Count 9.3, Red Blood Count 3.70L, Hemoglobin 10.9L, Hematocrit 35.8L , Mean Corpuscular Volume 97, Mean Corpuscular Hemoglobin 29.3, Mean Corpuscular Hemoglobin Concent 30.4L, Red Cell Distribution Width 15.2H, Platelet Count 196, Mean Platelet Volume 5.9L, Neutrophils (%) (Auto) 66.7, Lymphocytes (%) (Auto) 21.6, Monocytes (%) (Auto) 8.2, Eosinophils (%) (Auto) 2.4, Basophils (%) (Auto) 1.1, Sodium Level 141, Potassium Level 4.6, Chloride Level 105, Carbon Dioxide Level 26, Anion Gap 10, Blood Urea Nitrogen 19H, Creatinine 6.0H, Estimat Glomerular Filtration Rate 11.3, Glucose Level 103, Uric Acid 6.0, Calcium Level 8.7, Phosphorus Level 4.7, Magnesium Level 2.1, Total Bilirubin 0.6, Gamma Glutamyl Transpeptidase 26, Aspartate Amino Transf ( AST/SGOT) 24, Alanine Aminotransferase (ALT/SGPT) 8L, Alkaline Phosphatase 190H , Ammonia 25, C-Reactive Protein, Quantitative 19.2H, Pro-B-Type Natriuretic Peptide 44300T, Total Protein 7.1, Albumin 2.0L, Globulin 5.1, Albumin/Globulin Ratio 0.4L, Random Vancomycin Level 17.7 05/31/19 06:32: Prothrombin Time 59.6H, Prothromb Time International Ratio 6.2*H 05/31/19 16:58: White Blood Count 10.5, Red Blood Count 3.26L, Hemoglobin 9.7L, Hematocrit 29.4L , Mean Corpuscular Volume 90, Mean Corpuscular Hemoglobin 29.8, Mean Corpuscular Hemoglobin Concent 33.1, Red Cell Distribution Width 14.5, Platelet Count 203, Mean Platelet Volume 5.7L, Neutrophils (%) (Auto) 69.9, Lymphocytes ( %) (Auto) 16.5L, Monocytes (%) (Auto) 8.5, Eosinophils (%) (Auto) 2.4, Basophils (%) (Auto) 2.6H Height (Feet): 5 Height (Inches): 10.00 Weight (Pounds): 186 Objective General Appearance: WD/WN EENT: PERRL/EOMI Neck: non-tender Cardiovascular: normal rate Respiratory/Chest: lungs clear Abdomen: non tender 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
[2019-05-31] MEDS: Atorvastatin 20mg tab ORAL SCH (21:51)
[2019-06-01] VITALS: BP 90/64
[2019-06-01 04:00] VITALS: BP 91/61
--- NOTE | 2019-06-01 07:38 | NUR ---
HAND-OFF: Report given to KALEIGH Hester.
--- NOTE | 2019-06-01 08:01 | NUR ---
NURSE NOTES: Received patient from Svetlana Huerta. Patient sleeping at bedside. arousable to name. B/L wrist restraints in place will follow protocol. O2 at 2L/min via NC. NPO for CTA of abdominal aorta and bilateral leg run off with IV contrast today. Will follow.
[2019-06-01 09:00] VITALS: BP 124/66
[2019-06-01] MEDS: Imdur 30mg tab ORAL SCH (09:00)
--- NOTE | 2019-06-01 09:04 | Nephrology Progress Note ---
Assessment/Plan Problem List: (1) ESRF (end stage renal failure) (2) Cardiomyopathy Assessment: 40% Ej Fx (3) COPD (chronic obstructive pulmonary disease) (4) Anemia (5) Acute metabolic encephalopathy Assessment presents with SOB: CHF vs COPD Exacerbation ESRD CHF with previous Echo showing Ej Fx 40 % h/o At fib DM HTN Anemia COPD recent ear infection Plan HD next Optimize cardiac condition BP and BS check and control Discussed with Dr Chucky Hayes and Dig adjust mind altering meds per PMD per orders med surg?? Subjective ROS Limited/Unobtainable: No Constitutional: Reports: malaise Objective Objective Last 24 Hour Vital Signs Date Time Temp Pulse Resp B/P (MAP) Pulse Ox O2 Delivery O2 Flow Rate FiO2 06/01/19 04:00 98.5 92 21 91/61 (71) 95 06/01/19 00:00 99.0 94 21 90/64 (73) 95 05/31/19 22:01 98 Nasal Cannula 2.0 28 05/31/19 21:00 90 90/61 05/31/19 21:00 Nasal Cannula 2.0 05/31/19 20:00 99.9 90 18 90/61 (71) 97 05/31/19 17:46 98.2 85 18 103/58 (73) 98 05/31/19 16:00 97.7 97 18 78/55 (63) 98 05/31/19 12:00 97.7 103 18 98/55 (69) 92 Intake and Output 05/31/19 06/01/19 19:00 07:00 Intake Total 100 ml 200 ml Output Total 5070 ml Balance 100 ml -4870 ml Intake Oral 100 ml 200 ml Output Urine Total 70 ml Hemodialysis UF 5000 ml # Voids 6 # Bowel Movements 2 Laboratory Tests 05/31/19 16:58: White Blood Count 10.5, Red Blood Count 3.26L, Hemoglobin 9.7L, Hematocrit 29.4L , Mean Corpuscular Volume 90, Mean Corpuscular Hemoglobin 29.8, Mean Corpuscular Hemoglobin Concent 33.1, Red Cell Distribution Width 14.5, Platelet Count 203, Mean Platelet Volume 5.7L, Neutrophils (%) (Auto) 69.9, Lymphocytes ( %) (Auto) 16.5L, Monocytes (%) (Auto) 8.5, Eosinophils (%) (Auto) 2.4, Basophils (%) (Auto) 2.6H Height (Feet): 5 Height (Inches): 10.00 Weight (Pounds): 185 General Appearance: no apparent distress, confused Cardiovascular: normal rate Respiratory/Chest: decreased breath sounds Abdomen: distended Objective no change Francisco Javier Abraham MD Jun 01, 2019 09:04
[2019-06-01] MEDS: Nephrovite tab (Rena-Vite) ORAL SCH (09:52)
[2019-06-01] MEDS: Sertraline 50mg tab ORAL SCH (09:52)
[2019-06-01] MEDS: Docusate 100mg cap ORAL SCH ×3 (09:52→17:30)
--- NOTE | 2019-06-01 10:30 | NUR ---
P.T Note: P.T services not given. Pt currently receiving dialysis. Will reattempt tomorrow.
--- NOTE | 2019-06-01 10:30 | NUR ---
P.T WEEKLY PROGRESS NOTES: late entry 05/29/19 PATIENT DEMONSTRATED SLOW PROGRESS DURING THE COURSE OF 1 WK THERAPY SESSION. PROGRESS IS LIMITED BY MULTIPLE MEDICAL ISSUES AND POOR ACTIVITY TOLERANCE. PATIENT IS PARTICIPATIVE AND MOTIVATED IN THERAPY. PATIENT CURRENTLY REQUIRES MOD/MAX A X 1 FOR TURNING/ROLLING AND SUPINE TO/FROM SIT. PATIENT ABLE SIT AT THE EOB WITH BUE SUPPORT X 10-15 MINS , WAS ABLE TO INITIATE SIT TO/FROM STAND TRANSITION HOWEVER NOT ABLE TO FULLY STAND DESPITE MAX A. PATIENT SHOULD CONTINUE TO BENEFIT FROM SKILLED P.T SERVICES TO INCREASE HIS STRENGTH, BALANCE AND ACTIVITY TOLERANCE TO INCREASE MOBILITY INDEPENDENCE. WILL CONTINUE WITH POC UNTIL D/C. RECOMMENDATION: SNF FOR FURTHER REHAB.
--- NOTE | 2019-06-01 11:12 | Surgery Progress Note ---
Surgery Progress Note Subjective Additional Comments no acute events comfortable exam unchanged. labs ntoed Objective Last 24 Hour Vital Signs Date Time Temp Pulse Resp B/P (MAP) Pulse Ox O2 Delivery O2 Flow Rate FiO2 06/01/19 09:00 98.6 77 20 124/66 (85) 100 06/01/19 09:00 124/66 06/01/19 04:00 98.5 92 21 91/61 (71) 95 06/01/19 00:00 99.0 94 21 90/64 (73) 95 05/31/19 22:01 98 Nasal Cannula 2.0 28 05/31/19 21:00 90 90/61 05/31/19 21:00 Nasal Cannula 2.0 05/31/19 20:00 99.9 90 18 90/61 (71) 97 05/31/19 17:46 98.2 85 18 103/58 (73) 98 05/31/19 16:00 97.7 97 18 78/55 (63) 98 05/31/19 12:00 97.7 103 18 98/55 (69) 92 I&O Intake and Output 05/31/19 06/01/19 19:00 07:00 Intake Total 100 ml 200 ml Output Total 5070 ml Balance 100 ml -4870 ml Intake Oral 100 ml 200 ml Output Urine Total 70 ml Hemodialysis UF 5000 ml # Voids 6 # Bowel Movements 2 Dressing: dry Wound: other Drains: other Cardiovascular: RSR Respiratory: decreased breath sounds Abdomen: soft, non-tender, present bowel sounds Extremities: cyanosis Laboratory Tests Test 05/31/19 16:58 White Blood Count 10.5 K/UL (4.8-10.8) Red Blood Count 3.26 M/UL (4.70-6.10) L Hemoglobin 9.7 G/DL (14.2-18.0) L Hematocrit 29.4 % (42.0-52.0) L Mean Corpuscular Volume 90 FL (80-99) Mean Corpuscular Hemoglobin 29.8 PG (27.0-31.0) Mean Corpuscular Hemoglobin Concent 33.1 G/DL (32.0-36.0) Red Cell Distribution Width 14.5 % (11.6-14.8) Platelet Count 203 K/UL (150-450) Mean Platelet Volume 5.7 FL (6.5-10.1) L Neutrophils (%) (Auto) 69.9 % (45.0-75.0) Lymphocytes (%) (Auto) 16.5 % (20.0-45.0) L Monocytes (%) (Auto) 8.5 % (1.0-10.0) Eosinophils (%) (Auto) 2.4 % (0.0-3.0) Basophils (%) (Auto) 2.6 % (0.0-2.0) H Plan Problems: (1) Gangrene of toe Assessment & Plan: Patient with two partial thickness pressure injuries sacral cleft (proximal)(L)0.4cm x (W)0.3cm. Base of wound moist and viable Non- blanching erythema without induration periwound. (distal at perianal ) (L)1.7cm x (W)0.5cm. Base of wound moist and viable. Borders macerated. Non-Blanching erythema without induration periwound. Non-blanching erythema with fluctuance noted to L heel . Non-blanching erythema with fluctuance noted to R heel. L 4th metatarsal is necrotic but dry . appreciate podiatry input plan for amputation after vascular and medical clearance INR elevated will monitor appreciate vascular input 1. Medical optimization in progress. We will complete his noninvasive imaging with duplex and CT angiography of the aorta and lower extremity to delineate his vasculopathy. Should also have bilateral arm vein mapping and duplex. 2. The patient will strongly benefit from selective left leg angiography to assess for percutaneous revascularization prior to left fourth toe gangrene amputation by Podiatry service. 3. As for more permanent hemodialysis access, the patient will require bilateral upper arm venogram to assess the vein and central veins prior to new arm AV shunt placement. Recommendations: Necrotic L 4th metatarsal. etiology potentially vascular vs trauma. will order studies and work up. Apply Moisture Barrier Paste to Buttocks. Cover with Optifoam drsg . Change every 3 days and prn. Apply Cavilon Skin Barrier to both heels. Cover each heel with Optifoam drsg.Change every 7 days and PRN. Apply Betadine to L 4th metatarsal daily. Reposition at least every 2 hours or as tolerated. Off-load heels with pillow. Killian Doyle Jun 01, 2019 11:12
[2019-06-01 12:00] VITALS: BP 94/64
--- NOTE | 2019-06-01 12:40 | General Progress Note ---
Assessment/Plan Status: stable Assessment/Plan: 69 year oldrola a PMH of a fib on AC, ESRD on HD, anemia, htn, DM, COPD, HFPEF presented for acute hypoxemic respiratory failure #Toxic metabolic encephalopathy #Hospital delirium - non violent restraints - prn seroquel 12.5 for agitation - delirium precautions # Acute Hypoxic Repiratory Failure likely 2/2 chf exacerbation - cardiac medications - echo with preserved EF 40-45 % - HD for fluid removal per Dr. Chen. HD 05/28, 05/30 and next 06/01 - RT - breathing treatments - Pulm Consult appreciated # Supratherapeutic INR - hold coumadin - vit k +/- FFP if patient bleeds -> 2.5mg vit po given 05/31 - daily INR needed - Pharmacy to dose. - heme consult - check actor VIII, PTT , PT, dic panel # Hyponatremia likely hypervolemic from chf - HD - CTM # ESRD - HD by Nephrology, Last HD 05/28 # Afib with episodes of WCT and AF with aberrancy, Dr. Stone consultation appreciated. Dr. Villegas covering this week. Digoxin was stopped and Carvedilol 25 mg BID - cardiac meds being adjusted. - hold coumadin for now # Iron deficiency anemia - iron replacement # UTI due to Enterococcus F - Per sensitivities only Ampicillin and Vancomycin are appropriate. - Stop CTX and start Vancomycin per pharmacy today # Dysphagia with aspiration risk - Discussed with ST - Dietary adjustment - Daily ST and adjustments as needed - GI consultation for PEG completed. 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 - Await recommendations. Podiatry consult noted and vascular surgery pending. - Angiogram at [facility] per request by vascular surg, transfer center aware # Full Code # Dispo- SNF (prior resident) - Request PT and OT evaluation for mobility Subjective Allergies: Coded Allergies: No Known Allergies (Verified , 07/21/11) Objective Last 24 Hour Vital Signs Date Time Temp Pulse Resp B/P (MAP) Pulse Ox O2 Delivery O2 Flow Rate FiO2 06/01/19 09:00 Nasal Cannula 2.0 06/01/19 09:00 98.6 77 20 124/66 (85) 100 06/01/19 09:00 124/66 06/01/19 07:05 98 Nasal Cannula 2.0 28 06/01/19 04:00 98.5 92 21 91/61 (71) 95 06/01/19 00:00 99.0 94 21 90/64 (73) 95 05/31/19 22:01 98 Nasal Cannula 2.0 28 05/31/19 21:00 90 90/61 05/31/19 21:00 Nasal Cannula 2.0 05/31/19 20:00 99.9 90 18 90/61 (71) 97 05/31/19 17:46 98.2 85 18 103/58 (73) 98 05/31/19 16:00 97.7 97 18 78/55 (63) 98 Intake and Output 05/31/19 06/01/19 19:00 07:00 Intake Total 100 ml 200 ml Output Total 5070 ml Balance 100 ml -4870 ml Intake Oral 100 ml 200 ml Output Urine Total 70 ml Hemodialysis UF 5000 ml # Voids 6 # Bowel Movements 2 Laboratory Tests 05/31/19 16:58: White Blood Count 10.5, Red Blood Count 3.26L, Hemoglobin 9.7L, Hematocrit 29.4L , Mean Corpuscular Volume 90, Mean Corpuscular Hemoglobin 29.8, Mean Corpuscular Hemoglobin Concent 33.1, Red Cell Distribution Width 14.5, Platelet Count 203, Mean Platelet Volume 5.7L, Neutrophils (%) (Auto) 69.9, Lymphocytes ( %) (Auto) 16.5L, Monocytes (%) (Auto) 8.5, Eosinophils (%) (Auto) 2.4, Basophils (%) (Auto) 2.6H Height (Feet): 5 Height (Inches): 10.00 Weight (Pounds): 185 ChuckyAngie olmedo DO Jun 01, 2019 12:40
--- NOTE | 2019-06-01 12:56 | Diagnostic Imaging Report ---
INDICATION: Left fourth toe gangrene TECHNIQUE: IV administration nonionic contrast. Arterial phase spiral acquisitions obtained through the abdomen, pelvis, and bilateral lower extremities. Multiplanar and 3-D reconstructions were generated. Total dose length product 2489 mGycm. CTDIvol(s) 8, 113, 10, 6, 6 mGy. Radiation dose was minimized using automated exposure control COMPARISON: No comparison CT studies. Reference is made to duplex scan dated 05/29/2019 FINDINGS Abdominal aorta: There are calcified mural plaques with no significant stenosis of the abdominal aorta. Patent nonstenotic celiac axis and proximal branches. Patent nonstenotic bilateral renal arteries. Patent nonstenotic superior mesenteric artery. Right lower extremity: There is atherosclerotic plaquing without significant stenosis of the right common, external, and internal iliac arteries. There is calcific plaquing but no significant stenosis of the common and profunda femoral arteries. The superficial femoral artery demonstrates mural plaquing but no significant stenosis. The popliteal artery is likewise patent and nonstenotic. The tibial vessels are somewhat difficult to assess due to the presence of heavy calcification. There is high origin of the posterior tibial artery, which takes off at the level of the knee joint. This results in the tibioperoneal trunk giving rise to the anterior tibial artery and the peroneal artery. The posterior tibial artery is patent over most of its length, with multiple nonsignificant or borderline significant stenoses, forms posterior plantar vessels which are patent. There is suggestion of a borderline significant stenosis of the anterior tibial artery origin. There is extensive diffuse disease of the mid to distal anterior tibial artery, with multiple focal near occlusive stenoses versus occlusions. The dorsalis pedis artery is patent, however. The peroneal artery is diffusely diseased over this length, with multiple high-grade stenoses versus focal occlusions proximally, probable complete occlusion distally. Left lower extremity: Patient nonstenotic external iliac, common iliac, internal iliac arteries, with nonobstructive calcified mural plaquing. Patent and nonstenotic common femoral and profunda femoral arteries. There is variant anatomy of the profunda branch coming off of the superficial femoral artery. The superficial femoral artery demonstrates atherosclerotic plaquing without evidence of significant stenosis. No significant stenosis of the popliteal artery is demonstrated. As on the right, evaluation of the trifurcation is limited by epigastric sclerotic plaquing. As on the right, there is optimal origin of the posterior tibial artery at the level of the knee joint, with the tibioperoneal trunk giving rise to the anterior tibial and peroneal arteries. The posterior tibial artery is the dominant runoff vessel, demonstrating multiple borderline significant stenoses distally but remaining patent to the ankle and giving off sizable plantar vessels. The tibioperoneal trunk is patent and nonstenotic. The anterior tibial artery demonstrates multiple diffuse high-grade stenoses, particularly distally but appears to be patent over its length and provide a patent dorsalis pedis artery. The peroneal artery likewise appears to reach the ankle. Nonvascular: Gas bubbles are seen within the soft tissues and possibly the distal phalanx of the left fourth toe. Dense stool versus previously ingested contrast is seen in the distal sigmoid and rectum. No evidence of diverticulosis or diverticulitis. The appendix is normal. No small bowel distention. No free or loculated intraperitoneal gas or fluid. There is a small umbilical hernia which contains only fat. The distal esophagus, stomach, duodenum are unremarkable. The liver demonstrates a slight degree of surface nodularity, particularly inferiorly, suspicious for cirrhotic change. No focal abnormality. The gallbladder probably demonstrates small calcified gallstones. No biliary ductal dilatation. The pancreas is somewhat atrophic. The spleen is unremarkable. The right adrenal is unremarkable. The left adrenal is diffusely bulky without definite discrete mass. The right kidney demonstrates an interpolar region cyst. The left kidney is unremarkable. No renal or ureteral calculi, hydronephrosis, or hydroureter demonstrated. No pelvic mass or adenopathy. No retroperitoneal or mesenteric mass or adenopathy. The heart is mildly enlarged, contains pacemaker wires. There is suggestion of left ventricular hypertrophy. There is compressive atelectasis at the left lung base. The right lung base is clear. There is evidence of bilateral gynecomastia. There is mild generalized edema of the subcutaneous fat IMPRESSION: Right lower extremity demonstrates no evidence of significant suprageniculate stenosis. Tibial vessels are difficult to assess due to the presence of heavy calcification. There appears to be good runoff via the posterior tibial artery. There appears to be distal occlusive disease of the peroneal artery, multifocal near occlusive stenoses versus occlusions of the distal anterior tibial artery Left lower extremity demonstrates no evidence of significant supragenicular stenosis. Tibial vessels are difficult to assess due to the presence hepatic calcification. There appears to be good runoff dominant runoff vessel is the posterior tibial artery which nonetheless demonstrates multiple borderline significant stenoses distally. The anterior tibial artery demonstrates multiple diffuse high-grade stenoses but appears to be patent. The peroneal artery is patent and reaches the ankle Gas bubbles within the soft tissue and possibly the distal phalanx of the left fourth toe. This may be related to stated clinical history of ulceration but possibility of gas gangrene should also be considered. Correlate with clinical findings Possible slight hepatic surface nodularity, could indicate early cirrhotic change. Correlate with clinical history and findings Probable cholelithiasis Cardiomegaly with likely left ventricular hypertrophy Other findings as noted, including bilateral gynecomastia, generalized edema of the subcutaneous fat, left basilar compressive atelectasis, fat-containing umbilical hernia, right renal cyst, pacemaker The CT scanner at [facility] is accredited by the [employer] and the scans are performed using protocols designed to limit radiation exposure to as low as reasonably achievable to attain images of sufficient resolution adequate for diagnostic evaluation.
--- NOTE | 2019-06-01 13:37 | NUR ---
RD ASSESSMENT & RECOMMENDATIONS SEE CARE ACTIVITY FOR COMPLETE ASSESSMENT DAILY ESTIMATED NEEDS: Needs based on ESRD on HD, obese 78kg adj 25-30 kcals/kg 1181-7439 total kcals 1.2-1.8 g protein/kg 94-140 g total protein Fluid per MD, on HD NUTRITION DIAGNOSIS: * Increased kcal and protein needs r/t renal dysfunction, wound healing as evidenced by pt w/ ESRD on HD, pt admitted w/ two partial thickness pressure injuries sacral cleft, currently w/ poor PO * Swallowing difficulty R/T dysphagia as evidenced by MBSS, w/ rec for liquify pureed, NTL, fair to poor po intake. CURRENT DIET:RENAL, CCHO LOW (liquify pureed, NTL) PO DIET RECOMMENDATIONS: RENAL, CCHO MED/ texture per AS400 CONSULTANT ENTERAL NUTRITION RECOMMENDATIONS: IF INDICATED: NEPRO @47ml/hr x24 hrs to provide 1128ml, 2030, 91g pro, 820ml free H2O - If indicated, start nepro @17ml/hr, advance as tolerated 10ml/hr q4-6 hrs to goal - Flush per MD, HOB over 30 degrees. PARENTERAL NUTRITION RECOMMENDATIONS: D/AA Rate: ADDITIONAL RECOMMENDATIONS: 1) Obtain a calibrated bed scale wt, dry wt post HD 2) Wound healing: Juan 1pkt BID Add Nephrovite x 1 3) Nepro TID w/ meals while on liquify pureed, NTL texture diet 4) Consider NISS: h/o DM (poor po intake currently, BG wnl) 5) TF recs as above for PEG placement W/ TF rec to add Prosource qdaily to better meet est pro needs
--- NOTE | 2019-06-01 14:03 | NUR ---
SPEECH PATHOLOGY; SWALLOW/SPEECH THERAPY NOTE: S: PATIENT CLEARED FOR ST INTERVENTION BY KALEIGH LEWIS. P.O. INTAKE REMAINS INSUFFICIENT TO SUPPORT NUTRITION/HYDRATION NEEDS PATIENT LETHARGIC ORAL DEBRIS/FOOD PARTICLES NOTED IN PATIENTS MOUTH FROM PRIOR MEAL PATIENT TOO LETHARGIC FOR SAFE P.O. INTAKE AT THIS TIME. P: CONSIDER NON/ORAL FEEDING MANAGEMENT VIA PEG FOR PRIMARY MODE OF NUTRITION/HYDRATION/MEDICATION SUPPORT WITH P.O. IN SMALL AMOUNTS ONLY FOR ORAL GRATIFICATION
--- NOTE | 2019-06-01 14:45 | Pulmonology Progress Note ---
Assessment/Plan Assessment/Plan Pulmonary Progress Note HPI Patient is a 69-year-old male with a history of Alzheimers Dementia, COPD, CHF with EF 25%, Hypertension, Pacemaker, CKD on HD, Previous CVA, chronic weakness , Diabetes, AO x1, presents with acute dyspnea, patient was at the convalescent house not taking his oxygen, he is oxygen dependent, has a history of COPD, he was hypoxic down to the low 80s, history is limited secondary to patient's dementia. Noted to have UTI, CXR pulm congestion, elevated NPA, V/Q negative, has coagulopathy associated with coumadin now improving. Left toe vascular compromise Previously on anticoagulation [employer] for atrial fibrillation Stable overnight Allergies: No Known Allergies Past Medical History: Alzheimers Dementia, COPD, Hypertension, CHF with EF 25% , Pacemaker, CKD on HD, Previous CVA, chronic weakness, Diabetes All Other Systems: limited Physical Exam Vital Signs Noted General Appearance: no apparent distress, alert Head: normocephalic, atraumatic Eyes: bilateral eye PERRL, bilateral eye EOMI ENT: uvula midline, moist mucus membranes Neck: supple, thyroid normal, supple/symmetrical/no masses Respiratory: lungs clear, no respiratory distress, no retraction, no accessory muscle use, other - on non rebreather Cardiovascular: normal HS, normal peripheral pulses, no gallop, no murmur, tachycardia, irregular Gastrointestinal: non tender, soft, no guarding, no rebound Musculoskeletal: normal inspection Neurologic: awake, oriented x1, responsive Skin: no rash, warm/dry, no edema Impression: Dyspnea CHF with EF 25% HTN COPD Hypoxia - VQ negative for PE UTI (lower urinary tract infection) Alzheimer Dementia Plan - O2 PRN - HHN - IV Antibiotics for UTI - Monitor labs - PPX Laboratory Tests Noted EKG: Atrial fibrillation, rate 110, QTc 544, no acute ST elevations, normal axis Chest X-Ray: no consolidation, no pneumothorax, no acute cardiopulmonary disease Subjective ROS Limited/Unobtainable: No Allergies: Coded Allergies: No Known Allergies (Verified , 07/21/11) Objective Last 24 Hour Vital Signs Date Time Temp Pulse Resp B/P (MAP) Pulse Ox O2 Delivery O2 Flow Rate FiO2 06/01/19 12:00 96.7 87 20 94/64 (74) 96 06/01/19 09:00 Nasal Cannula 2.0 06/01/19 09:00 98.6 77 20 124/66 (85) 100 06/01/19 09:00 124/66 06/01/19 07:05 98 Nasal Cannula 2.0 28 06/01/19 04:00 98.5 92 21 91/61 (71) 95 06/01/19 00:00 99.0 94 21 90/64 (73) 95 05/31/19 22:01 98 Nasal Cannula 2.0 28 05/31/19 21:00 90 90/61 05/31/19 21:00 Nasal Cannula 2.0 05/31/19 20:00 99.9 90 18 90/61 (71) 97 05/31/19 17:46 98.2 85 18 103/58 (73) 98 05/31/19 16:00 97.7 97 18 78/55 (63) 98 Intake and Output 05/31/19 06/01/19 19:00 07:00 Intake Total 100 ml 200 ml Output Total 5070 ml Balance 100 ml -4870 ml Intake Oral 100 ml 200 ml Output Urine Total 70 ml Hemodialysis UF 5000 ml # Voids 6 # Bowel Movements 2 Laboratory Tests 05/31/19 16:58: White Blood Count 10.5, Red Blood Count 3.26L, Hemoglobin 9.7L, Hematocrit 29.4L , Mean Corpuscular Volume 90, Mean Corpuscular Hemoglobin 29.8, Mean Corpuscular Hemoglobin Concent 33.1, Red Cell Distribution Width 14.5, Platelet Count 203, Mean Platelet Volume 5.7L, Neutrophils (%) (Auto) 69.9, Lymphocytes ( %) (Auto) 16.5L, Monocytes (%) (Auto) 8.5, Eosinophils (%) (Auto) 2.4, Basophils (%) (Auto) 2.6H 06/01/19 13:45: Prothrombin Time [Pending], Prothromb Time International Ratio [Pending], Activated Partial Thromboplast Time [Pending], Fibrinogen [Pending], Fibrin Degradation Products, Quant [Pending], D-Dimer [Pending], Coagulation Factor VIII [Pending] Current Medications Medications (Trade) Dose Ordered Sig/Divya Route PRN Reason Start Time Stop Time Status Last Admin Dose Admin Acetaminophen (Tylenol) 650 mg Q4H PRN ORAL Mild Pain (Pain Scale 1-3) 05/28/19 18:45 9/14/19 18:44 Acetaminophen (Tylenol) 650 mg Q4H PRN ORAL fever (temp>100.5F) 05/28/19 18:45 06/22/19 18:44 Aripiprazole (Abilify) 15 mg DAILY ORAL 05/29/19 09:00 06/23/19 08:59 06/01/19 09:52 Atorvastatin Calcium (Lipitor) 40 mg QHS ORAL 05/28/19 21:00 06/23/19 08:59 05/31/19 21:51 Carvedilol (Coreg) 25 mg EVERY 12 HOURS ORAL 06/01/19 21:00 06/23/19 20:59 Dextrose (Dextrose 50%) 25 ml Q30M PRN IV Hypoglycemia 05/28/19 18:45 06/22/19 18:14 Dextrose (Dextrose 50%) 50 ml Q30M PRN IV Hypoglycemia 05/28/19 18:45 06/22/19 18:14 Diphenhydramine HCl (Benadryl) 25 mg Q6H PRN ORAL Itching/Pruritis 05/28/19 18:45 06/27/19 18:44 05/30/19 01:58 Docusate Sodium (Colace) 100 mg THREE TIMES A DAY ORAL 05/29/19 09:00 06/23/19 12:59 06/01/19 09:52 Isosorbide Mononitrate (Imdur) 60 mg DAILY ORAL 05/29/19 09:00 06/23/19 08:59 05/31/19 08:25 Lisinopril (Zestril) 10 mg DAILY ORAL 06/02/19 09:00 06/23/19 08:59 Metoclopramide HCl (Reglan) 10 mg Q6H PRN IVP Nausea & Vomiting 05/28/19 18:45 06/27/19 18:44 Ondansetron HCl (Zofran) 4 mg Q6H PRN IVP Nausea & Vomiting 05/28/19 18:45 06/27/19 18:44 Pantoprazole (Protonix) 40 mg EVERY 12 HOURS ORAL 05/28/19 21:00 06/23/19 20:59 06/01/19 09:52 Prochlorperazine (Compazine) 10 mg Q6H PRN IVP Nausea & Vomiting 05/28/19 18:45 06/27/19 18:44 Quetiapine Fumarate (SEROquel) 12.5 mg Q8H PRN ORAL aggitation 05/31/19 09:00 06/30/19 08:59 05/31/19 15:40 Sertraline HCl (Zoloft) 50 mg DAILY ORAL 05/29/19 09:00 06/23/19 08:59 06/01/19 09:52 Sevelamer Carbonate (Renvela) 1,600 mg THREE TIMES A DAY ORAL 05/29/19 09:00 06/23/19 08:59 06/01/19 09:52 Vancomycin HCl (Vanco rx to dose) 1 ea DAILY PRN MISC Per rx protocol 05/28/19 18:45 06/27/19 18:44 Vitamin B Complex/ Vit C/Folic Acid (Nephrovite) 1 tab DAILY ORAL 05/29/19 09:00 06/23/19 08:59 06/01/19 09:52 Navneet Bond MD Jun 01, 2019 14:45
[2019-06-01 15:34] LABS: INR 1.3 (0.9-1.1)
[2019-06-01 16:00] VITALS: BP 94/64
--- NOTE | 2019-06-01 16:05 | Cardiac Electrophysiology PN ---
Assessment/Plan Assessment/Plan 1. Wide complex tachycardia. This is likely due to atrial fibrillation with rapid ventricular response and aberrant conduction. His rhythm is very irregular again suggestive of atrial fibrillation with aberrancy during tachycardia. EF of 40 to 45 percent. 2. Atrial fibrillation with rapid ventricular response.On Coreg to 12.5 mg bid and digoxin 0.125 mg daily. On Coumadin per pharmacy. 3. Hypertension. Stable. 4. Congestive heart failure with EF of 40 to 45 percent, could be due to atrial fibrillation with rapid ventricular response and tachy induced myopathy. On Dig, Coreg, Lisinopril, isordil and HD 5. COPD. 6. UTI. On antibiotics. 7. End-stage renal disease, on hemodialysis. 8. PVD with Ischemic left fourth toe dry gangrene with calcific multilevel arterial occlusive disease and absent popliteal and pedal pulses. Strongly benefit from selective left leg angiography to assess for percutaneous revascularization prior to left fourth toe gangrene amputation by Podiatry service per Dr Doherty 9. Thrombosed right arm AV shunt, currently on dialysis through chest Perma-catheter SIN RN Subjective Subjective Off tele. No events Objective Last 24 Hour Vital Signs Date Time Temp Pulse Resp B/P (MAP) Pulse Ox O2 Delivery O2 Flow Rate FiO2 06/01/19 12:00 96.7 87 20 94/64 (74) 96 06/01/19 09:00 Nasal Cannula 2.0 06/01/19 09:00 98.6 77 20 124/66 (85) 100 06/01/19 09:00 124/66 06/01/19 07:05 98 Nasal Cannula 2.0 28 06/01/19 04:00 98.5 92 21 91/61 (71) 95 06/01/19 00:00 99.0 94 21 90/64 (73) 95 05/31/19 22:01 98 Nasal Cannula 2.0 28 05/31/19 21:00 90 90/61 05/31/19 21:00 Nasal Cannula 2.0 05/31/19 20:00 99.9 90 18 90/61 (71) 97 05/31/19 17:46 98.2 85 18 103/58 (73) 98 05/31/19 16:00 97.7 97 18 78/55 (63) 98 Intake and Output 05/31/19 06/01/19 19:00 07:00 Intake Total 100 ml 200 ml Output Total 5070 ml Balance 100 ml -4870 ml Intake Oral 100 ml 200 ml Output Urine Total 70 ml Hemodialysis UF 5000 ml # Voids 6 # Bowel Movements 2 Laboratory Tests Test 05/31/19 16:58 06/01/19 13:45 White Blood Count 10.5 K/UL (4.8-10.8) Red Blood Count 3.26 M/UL (4.70-6.10) L Hemoglobin 9.7 G/DL (14.2-18.0) L Hematocrit 29.4 % (42.0-52.0) L Mean Corpuscular Volume 90 FL (80-99) Mean Corpuscular Hemoglobin 29.8 PG (27.0-31.0) Mean Corpuscular Hemoglobin Concent 33.1 G/DL (32.0-36.0) Red Cell Distribution Width 14.5 % (11.6-14.8) Platelet Count 203 K/UL (150-450) Mean Platelet Volume 5.7 FL (6.5-10.1) L Neutrophils (%) (Auto) 69.9 % (45.0-75.0) Lymphocytes (%) (Auto) 16.5 % (20.0-45.0) L Monocytes (%) (Auto) 8.5 % (1.0-10.0) Eosinophils (%) (Auto) 2.4 % (0.0-3.0) Basophils (%) (Auto) 2.6 % (0.0-2.0) H Prothrombin Time 14.0 SEC (9.30-11.50) H Prothromb Time International Ratio 1.3 (0.9-1.1) H Activated Partial Thromboplast Time 39 SEC (23-33) H Fibrinogen 352 mg/dL (200-400) Fibrin Degradation Products, Quant Pending D-Dimer 1.46 mg/L FEU (0.00-0.49) H Coagulation Factor VIII Pending Objective HEAD AND NECK: No JVD. LUNGS: Decreased breath sounds. CARDIOVASCULAR: Shows irregular irregular S1 and S2 with no gallop or murmur. The dialysis access is in the left chest. ABDOMEN: Soft. EXTREMITIES: 1+ pitting edema. Bandar Pina MD Jun 01, 2019 16:05
--- NOTE | 2019-06-01 18:09 | Consultation ---
History of Present Illness General Chief Complaint: Dyspnea/Respdistress Present Illness Allergies: Coded Allergies: No Known Allergies (Verified , 07/21/11) Medication History Scheduled Aripiprazole* (Abilify*), 15 MG ORAL DAILY, (Reported) Aspirin* (Aspirin*), 81 MG ORAL DAILY, (Reported) Atorvastatin Calcium* (Atorvastatin Calcium*), 40 MG ORAL DAILY, (Reported) Calcium Acetate (Calcium Acetate), 1,334 MG PO TID, (Reported) Folic Acid/Vitamin B Comp W-C (Gail-Saranya Tablet), 0.8 MG PO DAILY, (Reported) Isosorbide Mononitrate (Isosorbide Mononitrate Er), 60 MG PO DAILY, (Reported) Linagliptin (Tradjenta), 5 MG PO DAILY, (Reported) Lisinopril* (Prinivil*), 20 MG ORAL DAILY Losartan Potassium* (Losartan Potassium*), 50 MG ORAL DAILY, (Reported) Losartan Potassium* (Cozaar*), 50 MG ORAL DAILY, (Reported) Metolazone (Metolazone), 5 MG PO DAILY, (Reported) Metoprolol Succinate* (Metoprolol Succinate*), 100 MG ORAL DAILY, (Reported) Metoprolol Tartrate* (Metoprolol Tartrate*), 100 MG ORAL BID Pantoprazole* (Protonix*), 40 MG ORAL DAILY, (Reported) Sertraline Hcl* (Zoloft*), 50 MG ORAL DAILY, (Reported) Sevelamer Carbonate (Renvela), 2,400 MG ORAL THREE TIMES A DAY Warfarin Sod* (Warfarin Sod*), 5 MG ORAL DAILY, (Reported) [Digoxin], 0.125 MG ORAL DAILY Miscellaneous Medications Albuterol Sulfate (Ventolin Hfa), 1 PUFF INH, (Reported) Loperamide Hcl (Loperamide), 2 MG PO, (Reported) [zaroxolyn], (Reported) Patient History Healthcare decision maker SELF Resuscitation status Full Code Advanced Directive on File No Physical Exam Last 24 Hour Vital Signs Date Time Temp Pulse Resp B/P (MAP) Pulse Ox O2 Delivery O2 Flow Rate FiO2 06/01/19 16:00 98.7 87 20 94/64 (74) 96 06/01/19 12:00 96.7 87 20 94/64 (74) 96 06/01/19 09:00 Nasal Cannula 2.0 06/01/19 09:00 98.6 77 20 124/66 (85) 100 06/01/19 09:00 124/66 06/01/19 07:05 98 Nasal Cannula 2.0 28 06/01/19 04:00 98.5 92 21 91/61 (71) 95 06/01/19 00:00 99.0 94 21 90/64 (73) 95 05/31/19 22:01 98 Nasal Cannula 2.0 28 05/31/19 21:00 90 90/61 05/31/19 21:00 Nasal Cannula 2.0 05/31/19 20:00 99.9 90 18 90/61 (71) 97 Intake and Output 05/31/19 06/01/19 19:00 07:00 Intake Total 100 ml 200 ml Output Total 5070 ml Balance 100 ml -4870 ml Intake Oral 100 ml 200 ml Output Urine Total 70 ml Hemodialysis UF 5000 ml # Voids 6 # Bowel Movements 2 Laboratory Tests Test 06/01/19 13:45 Prothrombin Time 14.0 SEC (9.30-11.50) H Prothromb Time International Ratio 1.3 (0.9-1.1) H Activated Partial Thromboplast Time 39 SEC (23-33) H Fibrinogen 352 mg/dL (200-400) Fibrin Degradation Products, Quant Pending D-Dimer 1.46 mg/L FEU (0.00-0.49) H Coagulation Factor VIII Pending Height (Feet): 5 Height (Inches): 10.00 Weight (Pounds): 186 Medications Current Medications Medications (Trade) Dose Ordered Sig/Divya Route PRN Reason Start Time Stop Time Status Last Admin Dose Admin Acetaminophen (Tylenol) 650 mg Q4H PRN ORAL Mild Pain (Pain Scale 1-3) 05/28/19 18:45 06/27/19 18:44 Acetaminophen (Tylenol) 650 mg Q4H PRN ORAL fever (temp>100.5F) 05/28/19 18:45 06/22/19 18:44 Aripiprazole (Abilify) 15 mg DAILY ORAL 05/29/19 09:00 06/23/19 08:59 06/01/19 09:52 Atorvastatin Calcium (Lipitor) 40 mg QHS ORAL 05/28/19 21:00 06/23/19 08:59 05/31/19 21:51 Carvedilol (Coreg) 25 mg EVERY 12 HOURS ORAL 06/01/19 21:00 06/23/19 20:59 Dextrose (Dextrose 50%) 25 ml Q30M PRN IV Hypoglycemia 05/28/19 18:45 06/22/19 18:14 Dextrose (Dextrose 50%) 50 ml Q30M PRN IV Hypoglycemia 05/28/19 18:45 06/22/19 18:14 Diphenhydramine HCl (Benadryl) 25 mg Q6H PRN ORAL Itching/Pruritis 05/28/19 18:45 06/27/19 18:44 05/30/19 01:58 Docusate Sodium (Colace) 100 mg THREE TIMES A DAY ORAL 05/29/19 09:00 06/23/19 12:59 06/01/19 17:30 Isosorbide Mononitrate (Imdur) 60 mg DAILY ORAL 05/29/19 09:00 06/23/19 08:59 05/31/19 08:25 Lisinopril (Zestril) 10 mg DAILY ORAL 06/02/19 09:00 06/23/19 08:59 Metoclopramide HCl (Reglan) 10 mg Q6H PRN IVP Nausea & Vomiting 05/28/19 18:45 06/27/19 18:44 Ondansetron HCl (Zofran) 4 mg Q6H PRN IVP Nausea & Vomiting 05/28/19 18:45 06/27/19 18:44 Pantoprazole (Protonix) 40 mg EVERY 12 HOURS ORAL 05/28/19 21:00 06/23/19 20:59 06/01/19 09:52 Prochlorperazine (Compazine) 10 mg Q6H PRN IVP Nausea & Vomiting 05/28/19 18:45 06/27/19 18:44 Quetiapine Fumarate (SEROquel) 12.5 mg Q8H PRN ORAL aggitation 05/31/19 09:00 06/30/19 08:59 05/31/19 15:40 Sertraline HCl (Zoloft) 50 mg DAILY ORAL 05/29/19 09:00 06/23/19 08:59 06/01/19 09:52 Sevelamer Carbonate (Renvela) 1,600 mg THREE TIMES A DAY ORAL 05/29/19 09:00 06/23/19 08:59 06/01/19 17:30 Vancomycin HCl (Vanco rx to dose) 1 ea DAILY PRN MISC Per rx protocol 05/28/19 18:45 06/27/19 18:44 Vitamin B Complex/ Vit C/Folic Acid (Nephrovite) 1 tab DAILY ORAL 05/29/19 09:00 06/23/19 08:59 06/01/19 09:52 Assessment/Plan Assessment/Plan: Hematology Consultation Note DOS: 06/01/19 RFC: Ongoing supertherapeutic inr REQ MD: Geremias Khan ID 69-year-old gentleman with history of hypertension and chronic atrial fibrillation as well as end-stage renal disease, on hemodialysis, diabetes, COPD, and anemia, as well as heart failure with preserved ejection fraction, presented with [facility] failure from jail. The patient was also encephalopathic and was refusing to use oxygen. The patient was also found to have urinary tract infection and was started on antibiotic on admission. The patient has already been on anticoagulation with Coumadin as well. He has multiple runs of wide complex tachycardia lasting up to 20 beats. Aso at this time has supertherapeutic inr and heme consulted for eval, ffp was given REVIEW OF SYSTEMS: Negative other than what was mentioned in the history of present illness. PAST MEDICAL HISTORY: As mentioned above. MEDICATION: Per reconciliation. FAMILY HISTORY: Noncontributory. SOCIAL HISTORY: care home resident. Does not smoke or drink alcohol. PHYSICAL EXAMINATION: VITAL SIGNS: Show blood pressure of 126/80, pulse was as high as 126, respirations 18, and temperature is 97. HEAD AND NECK: Showed no JVD. LUNGS: Decreased breath sounds. CARDIOVASCULAR: Shows irregular irregular S1 and S2 with no gallop or murmur. The dialysis access is in the left chest. ABDOMEN: Soft. EXTREMITIES: A 1+ pitting edema. LABORATORY AND DIAGNOSTIC DATA: reviewed Imaging: noted Assessment and Recs: # Supertherapeutic INR -- ongoing, without probably cause, reviewed patient's labs, she has elevation in both PT/PTT(intrinsic pathway), the cause of this can be Factor V deficiency (can also occur due to abxor inhibitor to FV), Factor Xdeficiency(can occur with coumadin and a/w amyloid), vit K (late), prothrombin deficiency,& hypofibrinogenemia (in this case likely coumadin related --> Factor V and Factor X ordered, results pending --> for acquired causesruel out DIC, severe vit K deficiency, advaned liver disease, factor V inhibitor, Factor VIII inhibitor (Have orderd a mixing study) --> thrombin ordered and fibrinogen --> vitamin K to be given IV or PO for maximal absorption if rise in pt/ptt/inr in next several days --> also may consider ffp if further rise in pt/ptt/inr --> HOLD COUMADIN # Anemia of chronic disease due to underlying chronic medical issues, multifactorial --> Anemia workup has been ordered, rule out gi bleed --> No evidence of hemolysis is noted, peripheral smear has been reviewed. --> Hgb goal >7. Transfuse prn. --> Epogen or iron at this time is not particularly indicated --> Medications have been reviewed # Toxic metabolic encephalopathy --> per neuro with hosp delirium --> non violent restraints # Acute Hypoxic Repiratory Failure likely 2/2 chf exacerbation --> HD for fluid removal per renal prn --> pulm eval diuresis prn # Hyponatremia likely hypervolemic from chf --> HD --> CTM # ESRD --> HD by Nephrology, Last HD 05/28, 06/01 # Afib with episodes of WCT --> per renal # UTI due to Enterococcus F --> abx The timing of this note does not necessarily reflect the time of the patient was seen. GREATLY APPRECIATE CONSULTATION. Kendell Fitzgerald MD Jun 01, 2019 18:09
--- NOTE | 2019-06-01 19:30 | NUR ---
NURSE NOTES: Patient asleep in bed, no signs or complaints of pain, not in acute respiratory distress. On bilateral soft wrist restraints. On right arm precaution. Call light in reach. Bed in lowest position, lock engaged and alarm on. Will continue to monitor.
--- NOTE | 2019-06-01 19:45 | NUR ---
HAND-OFF: Report given to Svetlana Culp. Plan of care endorsed.
[2019-06-01 20:00] VITALS: BP 130/68
--- NOTE | 2019-06-01 20:05 | NUR ---
CASE MANAGEMENT: REVIEW SI: GANGRENE OF TOE / LEFT 4TH . COPD . ESRD ON HD T 96.7 HR 87 RR 20 BP 90/64 SAT 95% NC/2L FACTOR V PENDING , FACTOR X PENDING IS: ISOSORBIDE PO TID NEPHROVITE PO QD COREG PO Q12HR WOUND CARE QD HD PRN NPO BILATERAL WRIST RESTRAINTS MED/SURG STATUS DCP: PATIENT IS FROM [facility]
[2019-06-01] MEDS: Carvedilol 25mg Tab ORAL SCH (20:39)
[2019-06-01] MEDS: Atorvastatin 20mg tab ORAL SCH (20:40)
--- NOTE | 2019-06-01 21:27 | General Progress Note ---
Assessment/Plan Status: stable Assessment/Plan: Assessment - CVA / AMS / Delirium - compromised swallow - elevated INR - w/u per heme - COPD - CHF, reduced EF Recommendations - Family agreed to PEG - will place feeding tube once coags stablized - aspiration precautions - Elevate HOB Subjective Allergies: Coded Allergies: No Known Allergies (Verified , 07/21/11) Subjective above noted awake but confused INR better today Heme noted Objective Last 24 Hour Vital Signs Date Time Temp Pulse Resp B/P (MAP) Pulse Ox O2 Delivery O2 Flow Rate FiO2 06/01/19 21:00 Nasal Cannula 2.0 06/01/19 20:39 88 130/68 06/01/19 20:00 98.7 88 19 130/68 (88) 94 06/01/19 16:00 98.7 87 20 94/64 (74) 96 06/01/19 12:00 96.7 87 20 94/64 (74) 96 06/01/19 09:00 Nasal Cannula 2.0 06/01/19 09:00 98.6 77 20 124/66 (85) 100 06/01/19 09:00 124/66 06/01/19 07:05 98 Nasal Cannula 2.0 28 06/01/19 04:00 98.5 92 21 91/61 (71) 95 06/01/19 00:00 99.0 94 21 90/64 (73) 95 05/31/19 22:01 98 Nasal Cannula 2.0 28 Intake and Output 05/31/19 06/01/19 19:00 07:00 Intake Total 100 ml 200 ml Output Total 5070 ml Balance 100 ml -4870 ml Intake Oral 100 ml 200 ml Output Urine Total 70 ml Hemodialysis UF 5000 ml # Voids 6 # Bowel Movements 2 Laboratory Tests 06/01/19 13:45: Prothrombin Time 14.0H, Prothromb Time International Ratio 1.3H, Activated Partial Thromboplast Time 39H, Fibrinogen 352, Fibrin Degradation Products, Quant [Pending], D-Dimer 1.46H, Coagulation Factor VIII [Pending] Height (Feet): 5 Height (Inches): 10.00 Weight (Pounds): 186 Objective WDWn obese AA man NCAT supple CTA RRR abd soft no edema Lara La MD Jun 01, 2019 21:27
[2019-06-02] VITALS: BP_SYST 104; BP_SYST 124; BP_DIAS 60; BP_DIAS 66
[2019-06-02 04:00] VITALS: BP_SYST 131; BP_SYST 134; BP_DIAS 91; BP_DIAS 93
--- NOTE | 2019-06-02 04:34 | NUR ---
HAND-OFF: Report given to KALEIGH Gold.
[2019-06-02 06:21] LABS: BASOPHILS % (AUTO) 0.8 % (0.0-2.0); HEMATOCRIT 34.6 % (42.0-52.0); HEMOGLOBIN 10.5 G/DL (14.2-18.0); LYMPHOCYTES % (AUTO) 11.1 % (20.0-45.0); MEAN CORPUSCULAR VOLUME 96 FL (80-99); MONOCYTES % (AUTO) 8.1 % (1.0-10.0); NEUTROPHILS % (AUTO) 79.1 % (45.0-75.0); PLATELET COUNT 189 K/UL (150-450); RED BLOOD COUNT 3.61 M/UL (4.70-6.10); RED CELL DISTRIBUTION WIDTH 15.2 % (11.6-14.8); WHITE BLOOD COUNT 14.1 K/UL (4.8-10.8)
[2019-06-02 06:41] LABS: ANION GAP 10 mmol/L (5-15); BLOOD UREA NITROGEN 21 mg/dL (7-18); CALCIUM 8.9 MG/DL (8.5-10.1); CARBON DIOXIDE 27 MMOL/L (21-32); CHLORIDE 107 MMOL/L (98-107); CREATININE 5.9 MG/DL (0.55-1.30); POTASSIUM 4.6 MMOL/L (3.5-5.1); SODIUM 144 MMOL/L (136-145)
[2019-06-02 07:01] LABS: INR 1.3 (0.9-1.1)
--- NOTE | 2019-06-02 07:28 | NUR ---
HAND-OFF: Report given to KALEIGH Gimenez. Addendum: 06/02/19 at [id number] by MARY ESCOTO RN RN NURSE NOTES: WRONG PATIENT
--- NOTE | 2019-06-02 07:29 | NUR ---
HAND-OFF: Report given to KALEIGH Antonio.
--- NOTE | 2019-06-02 07:57 | NUR ---
NURSE NOTES: received report from KALEIGH Gold. patient in bed. alert. confused. verbally responsive. no respiratory distress noted on 2l via NC. no pain at this time. perma cath for HD on Lt upper chest. R fistula not working. IV on RFA 18g. intact. contact isolation. PPE at all times. soft restraint on both wrist. skin intact. fall risk. bed in the lowest position. call light within reach. alarm on. will continue to provide plan of care.
[2019-06-02 08:00] VITALS: BP 120/68
[2019-06-02] MEDS: Sertraline 50mg tab ORAL SCH (09:28)
[2019-06-02] MEDS: Lisinopril 10mg tab ORAL SCH (09:29)
[2019-06-02] MEDS: Carvedilol 25mg Tab ORAL SCH ×2 (09:29→21:00)
[2019-06-02] MEDS: Docusate 100mg cap ORAL SCH ×3 (09:29→17:52)
[2019-06-02] MEDS: Imdur 30mg tab ORAL SCH (09:29)
[2019-06-02] MEDS: Nephrovite tab (Rena-Vite) ORAL SCH (09:29)
--- NOTE | 2019-06-02 11:38 | NUR ---
NURSE NOTES: seen by , salon/spa manager. MD wants to know when patient would be transfered to [facility].
--- NOTE | 2019-06-02 11:55 | Podiatric Progress Note ---
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 - Pt awaiting transfer to [facility] for possible re-vasc procedure and then further amp of L 4th toe. - Cont Betadine dressing to L 4th toe. - Cont B/L LE off-loading measures. - Tx per specialists. Will follow Recs. - Will cont with local wound care for now. - Podiatry will cont to monitor. Subjective Reason for consult Left fourth digit dry gangrene. Constitutional: no symptoms Allergies: Coded Allergies: No Known Allergies (Verified , 07/21/11) Subjective Pt seen bedside, resting comfortably. Appears NAD. Pt seen for Left foot fourth digit dry gangrene. Objective Exam Last 24 Hour Vital Signs Date Time Temp Pulse Resp B/P (MAP) Pulse Ox O2 Delivery O2 Flow Rate FiO2 06/02/19 09:36 97 Nasal Cannula 2.0 28 06/02/19 09:29 120/68 06/02/19 09:29 77 120/68 06/02/19 09:29 120/68 06/02/19 09:00 Nasal Cannula 2.0 06/02/19 08:00 98.2 77 17 120/68 (85) 98 06/02/19 04:00 98.8 64 18 134/93 (107) 95 06/02/19 00:00 97.6 79 19 104/66 (79) 94 06/01/19 21:00 Nasal Cannula 2.0 06/01/19 20:39 88 130/68 06/01/19 20:00 98.7 88 19 130/68 (88) 94 06/01/19 20:00 94 Nasal Cannula 2.0 28 06/01/19 16:00 98.7 87 20 94/64 (74) 96 06/01/19 12:00 96.7 87 20 94/64 (74) 96 Laboratory Tests Test 06/01/19 13:45 06/02/19 05:05 Prothrombin Time 14.0 SEC (9.30-11.50) H 13.7 SEC (9.30-11.50) H Prothromb Time International Ratio 1.3 (0.9-1.1) H 1.3 (0.9-1.1) H Activated Partial Thromboplast Time 39 SEC (23-33) H 39 SEC (23-33) H Fibrinogen 352 mg/dL (200-400) Fibrin Degradation Products, Quant Pending D-Dimer 1.46 mg/L FEU (0.00-0.49) H Coagulation Factor VIII Pending White Blood Count 14.1 K/UL (4.8-10.8) H Red Blood Count 3.61 M/UL (4.70-6.10) L Hemoglobin 10.5 G/DL (14.2-18.0) L Hematocrit 34.6 % (42.0-52.0) L Mean Corpuscular Volume 96 FL (80-99) Mean Corpuscular Hemoglobin 29.1 PG (27.0-31.0) Mean Corpuscular Hemoglobin Concent 30.3 G/DL (32.0-36.0) L Red Cell Distribution Width 15.2 % (11.6-14.8) H Platelet Count 189 K/UL (150-450) Mean Platelet Volume 6.2 FL (6.5-10.1) L Neutrophils (%) (Auto) 79.1 % (45.0-75.0) H Lymphocytes (%) (Auto) 11.1 % (20.0-45.0) L Monocytes (%) (Auto) 8.1 % (1.0-10.0) Eosinophils (%) (Auto) 1.0 % (0.0-3.0) Basophils (%) (Auto) 0.8 % (0.0-2.0) Sodium Level 144 MMOL/L (136-145) Potassium Level 4.6 MMOL/L (3.5-5.1) Chloride Level 107 MMOL/L (98-107) Carbon Dioxide Level 27 MMOL/L (21-32) Anion Gap 10 mmol/L (5-15) Blood Urea Nitrogen 21 mg/dL (7-18) H Creatinine 5.9 MG/DL (0.55-1.30) H Estimat Glomerular Filtration Rate 11.5 mL/min (>60) Glucose Level 148 MG/DL (74-106) H Calcium Level 8.9 MG/DL (8.5-10.1) Microbiology Date/Time Source Procedure Growth Status 05/23/19 16:25 Blood Blood Culture - Final NO GROWTH AFTER 5 DAYS Complete 05/23/19 10:38 Nasal Nares MRSA Culture - Final Staphylococcus Aureus - Mrsa Complete 05/26/19 13:00 Stool Stool Culture - Final NO SALMONELLA,SHIGELLA,OR CAMPYLOBACT... Complete 05/23/19 16:26 Urine,Clean Catch Urine Culture - Final Enterococcus Faecalis Complete Dermatological Dermatological Narrative PHYSICAL EXAMINATION: LOWER EXTREMITY PHYSICAL EXAM: Vascular, 0/4 DP/PT pulses. Normal temp differential. No edema or cyanosis is noted. DERMATOLOGICAL: There is dry necrosis noted at the left fourth toe. (-) acute SOI of infection, purulence or drainage noted from L 4th toe. No periwound erythema is noted. The area is dry. Remaining skin integrity in bilateral feet and ankles are intact. MUSCULOSKELETAL: No gross deformities are noted. The patient currently is bed-bound. [place] DPM Jun 02, 2019 11:55
[2019-06-02 12:00] VITALS: BP 135/79
--- NOTE | 2019-06-02 12:00 | Nephrology Progress Note ---
Assessment/Plan Problem List: (1) ESRF (end stage renal failure) (2) Cardiomyopathy Assessment: 40% Ej Fx (3) COPD (chronic obstructive pulmonary disease) (4) Anemia (5) Acute metabolic encephalopathy Assessment presents with SOB: CHF vs COPD Exacerbation ESRD CHF with previous Echo showing Ej Fx 40 % h/o At fib DM HTN Anemia COPD recent ear infection Plan HD next Optimize cardiac condition BP and BS check and control Discussed with Dr Chucky Hayes and Dig adjust mind altering meds per PMD per orders med surg?? Subjective ROS Limited/Unobtainable: No Constitutional: Reports: malaise Objective Objective Last 24 Hour Vital Signs Date Time Temp Pulse Resp B/P (MAP) Pulse Ox O2 Delivery O2 Flow Rate FiO2 06/02/19 09:36 97 Nasal Cannula 2.0 28 06/02/19 09:29 120/68 06/02/19 09:29 77 120/68 06/02/19 09:29 120/68 06/02/19 09:00 Nasal Cannula 2.0 06/02/19 08:00 98.2 77 17 120/68 (85) 98 06/02/19 04:00 98.8 64 18 134/93 (107) 95 06/02/19 00:00 97.6 79 19 104/66 (79) 94 06/01/19 21:00 Nasal Cannula 2.0 06/01/19 20:39 88 130/68 06/01/19 20:00 98.7 88 19 130/68 (88) 94 06/01/19 20:00 94 Nasal Cannula 2.0 28 06/01/19 16:00 98.7 87 20 94/64 (74) 96 Intake and Output 06/01/19 06/02/19 19:00 07:00 Intake Total 200 ml 250 ml Output Total 2000 ml Balance -1800 ml 250 ml Intake Oral 200 ml 250 ml Hemodialysis UF 2000 ml # Voids 2 Laboratory Tests 06/01/19 13:45: Prothrombin Time 14.0H, Prothromb Time International Ratio 1.3H, Activated Partial Thromboplast Time 39H, Fibrinogen 352, Fibrin Degradation Products, Quant [Pending], D-Dimer 1.46H, Coagulation Factor VIII [Pending] 06/02/19 05:05: Prothrombin Time 13.7H, Prothromb Time International Ratio 1.3H, Activated Partial Thromboplast Time 39H, White Blood Count 14.1H, Red Blood Count 3.61L, Hemoglobin 10.5L, Hematocrit 34.6L, Mean Corpuscular Volume 96, Mean Corpuscular Hemoglobin 29.1, Mean Corpuscular Hemoglobin Concent 30.3L, Red Cell Distribution Width 15.2H, Platelet Count 189, Mean Platelet Volume 6.2L, Neutrophils (%) (Auto) 79.1H, Lymphocytes (%) (Auto) 11.1L, Monocytes (%) (Auto ) 8.1, Eosinophils (%) (Auto) 1.0, Basophils (%) (Auto) 0.8, Sodium Level 144, Potassium Level 4.6, Chloride Level 107, Carbon Dioxide Level 27, Anion Gap 10, Blood Urea Nitrogen 21H, Creatinine 5.9H, Estimat Glomerular Filtration Rate 11.5, Glucose Level 148H, Calcium Level 8.9 Height (Feet): 5 Height (Inches): 10.00 Weight (Pounds): 186 General Appearance: no apparent distress, lethargic Cardiovascular: normal rate Respiratory/Chest: decreased breath sounds Abdomen: distended Objective no change Francisco Javier Abraham MD Jun 02, 2019 12:00
--- NOTE | 2019-06-02 14:00 | Pulmonology Progress Note ---
Assessment/Plan Assessment/Plan Pulmonary Progress Note HPI Patient is a 69-year-old male with a history of Alzheimers Dementia, COPD, CHF with EF 25%, Hypertension, Pacemaker, CKD on HD, Previous CVA, chronic weakness , Diabetes, AO x1, presents with acute dyspnea, patient was at the convalescent house not taking his oxygen, he is oxygen dependent, has a history of COPD, he was hypoxic down to the low 80s, history is limited secondary to patient's dementia. Noted to have UTI, CXR pulm congestion, elevated NPA, V/Q negative, has coagulopathy associated with coumadin now improving. Left toe vascular compromise Previously on anticoagulation [employer] for atrial fibrillation Stable overnight Allergies: No Known Allergies Past Medical History: Alzheimers Dementia, COPD, Hypertension, CHF with EF 25% , Pacemaker, CKD on HD, Previous CVA, chronic weakness, Diabetes All Other Systems: limited Physical Exam Vital Signs Noted General Appearance: no apparent distress, alert Head: normocephalic, atraumatic Eyes: bilateral eye PERRL, bilateral eye EOMI ENT: uvula midline, moist mucus membranes Neck: supple, thyroid normal, supple/symmetrical/no masses Respiratory: lungs clear, no respiratory distress, no retraction, no accessory muscle use, other - on non rebreather Cardiovascular: normal HS, normal peripheral pulses, no gallop, no murmur, tachycardia, irregular Gastrointestinal: non tender, soft, no guarding, no rebound Musculoskeletal: normal inspection Neurologic: awake, oriented x1, responsive Skin: no rash, warm/dry, no edema Impression: Dyspnea CHF with EF 25% HTN COPD Hypoxia - VQ negative for PE UTI (lower urinary tract infection) Alzheimer Dementia Plan - O2 PRN - HHN - HD per renal - IV Antibiotics for UTI - Monitor labs - PPX Laboratory Tests Noted EKG: Atrial fibrillation, rate 110, QTc 544, no acute ST elevations, normal axis Chest X-Ray: no consolidation, no pneumothorax, no acute cardiopulmonary disease Subjective ROS Limited/Unobtainable: No Allergies: Coded Allergies: No Known Allergies (Verified , 07/21/11) Objective Last 24 Hour Vital Signs Date Time Temp Pulse Resp B/P (MAP) Pulse Ox O2 Delivery O2 Flow Rate FiO2 06/02/19 12:00 98.3 72 18 135/79 (97) 97 06/02/19 09:36 97 Nasal Cannula 2.0 28 06/02/19 09:29 120/68 06/02/19 09:29 77 120/68 06/02/19 09:29 120/68 06/02/19 09:00 Nasal Cannula 2.0 06/02/19 08:00 98.2 77 17 120/68 (85) 98 06/02/19 04:00 98.8 64 18 134/93 (107) 95 06/02/19 00:00 97.6 79 19 104/66 (79) 94 06/01/19 21:00 Nasal Cannula 2.0 06/01/19 20:39 88 130/68 06/01/19 20:00 98.7 88 19 130/68 (88) 94 06/01/19 20:00 94 Nasal Cannula 2.0 28 06/01/19 16:00 98.7 87 20 94/64 (74) 96 Intake and Output 06/01/19 06/02/19 19:00 07:00 Intake Total 200 ml 250 ml Output Total 2000 ml Balance -1800 ml 250 ml Intake Oral 200 ml 250 ml Hemodialysis UF 2000 ml # Voids 2 Laboratory Tests 06/02/19 05:05: White Blood Count 14.1H, Red Blood Count 3.61L, Hemoglobin 10.5L, Hematocrit 34.6L, Mean Corpuscular Volume 96, Mean Corpuscular Hemoglobin 29.1, Mean Corpuscular Hemoglobin Concent 30.3L, Red Cell Distribution Width 15.2H, Platelet Count 189, Mean Platelet Volume 6.2L, Neutrophils (%) (Auto) 79.1H, Lymphocytes (%) (Auto) 11.1L, Monocytes (%) (Auto) 8.1, Eosinophils (%) (Auto) 1.0, Basophils (%) (Auto) 0.8, Prothrombin Time 13.7H, Prothromb Time International Ratio 1.3H, Activated Partial Thromboplast Time 39H, Sodium Level 144, Potassium Level 4.6, Chloride Level 107, Carbon Dioxide Level 27, Anion Gap 10, Blood Urea Nitrogen 21H, Creatinine 5.9H, Estimat Glomerular Filtration Rate 11.5, Glucose Level 148H, Calcium Level 8.9 Current Medications Medications (Trade) Dose Ordered Sig/Divya Route PRN Reason Start Time Stop Time Status Last Admin Dose Admin Acetaminophen (Tylenol) 650 mg Q4H PRN ORAL Mild Pain (Pain Scale 1-3) 05/28/19 18:45 06/27/19 18:44 Acetaminophen (Tylenol) 650 mg Q4H PRN ORAL fever (temp>100.5F) 05/28/19 18:45 06/22/19 18:44 Aripiprazole (Abilify) 15 mg DAILY ORAL 05/29/19 09:00 06/23/19 08:59 06/02/19 09:28 Atorvastatin Calcium (Lipitor) 40 mg QHS ORAL 05/28/19 21:00 06/23/19 08:59 06/01/19 20:40 Carvedilol (Coreg) 25 mg EVERY 12 HOURS ORAL 06/01/19 21:00 06/23/19 20:59 06/02/19 09:29 Dextrose (Dextrose 50%) 25 ml Q30M PRN IV Hypoglycemia 05/28/19 18:45 06/22/19 18:14 Dextrose (Dextrose 50%) 50 ml Q30M PRN IV Hypoglycemia 05/28/19 18:45 06/22/19 18:14 Diphenhydramine HCl (Benadryl) 25 mg Q6H PRN ORAL Itching/Pruritis 05/28/19 18:45 06/27/19 18:44 05/30/19 01:58 Docusate Sodium (Colace) 100 mg THREE TIMES A DAY ORAL 05/29/19 09:00 06/23/19 12:59 06/02/19 12:20 Isosorbide Mononitrate (Imdur) 60 mg DAILY ORAL 05/29/19 09:00 06/23/19 08:59 06/02/19 09:29 Lisinopril (Zestril) 10 mg DAILY ORAL 06/02/19 09:00 06/23/19 08:59 06/02/19 09:29 Metoclopramide HCl (Reglan) 10 mg Q6H PRN IVP Nausea & Vomiting 05/28/19 18:45 06/27/19 18:44 Ondansetron HCl (Zofran) 4 mg Q6H PRN IVP Nausea & Vomiting 05/28/19 18:45 06/27/19 18:44 Pantoprazole (Protonix) 40 mg EVERY 12 HOURS ORAL 05/28/19 21:00 06/23/19 20:59 06/02/19 09:29 Prochlorperazine (Compazine) 10 mg Q6H PRN IVP Nausea & Vomiting 05/28/19 18:45 06/27/19 18:44 Quetiapine Fumarate (SEROquel) 12.5 mg Q8H PRN ORAL aggitation 05/31/19 09:00 06/30/19 08:59 05/31/19 15:40 Sertraline HCl (Zoloft) 50 mg DAILY ORAL 05/29/19 09:00 06/23/19 08:59 06/02/19 09:28 Sevelamer Carbonate (Renvela) 1,600 mg THREE TIMES A DAY ORAL 05/29/19 09:00 06/23/19 08:59 06/02/19 12:20 Vancomycin HCl (Vanco rx to dose) 1 ea DAILY PRN MISC Per rx protocol 05/28/19 18:45 06/27/19 18:44 Vitamin B Complex/ Vit C/Folic Acid (Nephrovite) 1 tab DAILY ORAL 05/29/19 09:00 06/23/19 08:59 06/02/19 09:29 Navneet Bond MD Jun 02, 2019 14:00
--- NOTE | 2019-06-02 14:04 | Hematology/Onc Progress Note ---
Assessment/Plan Assessment/Plan Assessment and Recs: # Supertherapeutic INR -- ongoing, without probably cause, reviewed patient's labs, she has elevation in both PT/PTT(intrinsic pathway), the cause of this can be Factor V deficiency (can also occur due to abxor inhibitor to FV), Factor Xdeficiency(can occur with coumadin and a/w amyloid), vit K (late), prothrombin deficiency,& hypofibrinogenemia (in this case likely coumadin related --> inr trend 6-->1.3-->1.3 --> Factor V and Factor X ordered, results pending --> Have orderd a mixing study for aquired causes --> thrombin ordered and fibrinogen --> vitamin K to be given IV or PO for maximal absorption if rise in pt/ptt/inr in next several days --> also may consider ffp if further rise in pt/ptt/inr --> HOLD COUMADIN # Anemia of chronic disease due to underlying chronic medical issues, multifactorial --> Anemia workup has been ordered, rule out gi bleed --> No evidence of hemolysis is noted, peripheral smear has been reviewed. --> Hgb goal >7. Transfuse prn. --> Epogen or iron at this time is not particularly indicated --> Medications have been reviewed # Toxic metabolic encephalopathy --> per neuro with hosp delirium --> non violent restraints # Acute Hypoxic Repiratory Failure likely 2/2 chf exacerbation --> HD for fluid removal per renal prn --> pulm eval diuresis prn # Hyponatremia likely hypervolemic from chf --> HD --> CTM # ESRD --> HD by Nephrology, Last HD 05/28, 06/01 # Afib with episodes of WCT --> per renal # UTI due to Enterococcus F --> abx # Left 4th toe gangrene --> pending tx [facility] [place] The timing of this note does not necessarily reflect the time of the patient was seen. GREATLY APPRECIATE CONSULTATION. Subjective Constitutional: Denies: no symptoms, chills, fever, malaise, weakness, other HEENT: Denies: no symptoms, eye pain, blurred vision, tearing, double vision, ear pain, ear discharge, nose pain, nose congestion, throat pain, throat swelling, mouth pain, mouth swelling, other Cardiovascular: Denies: no symptoms, chest pain, edema, irregular heart rate, lightheadedness, palpitations, syncope, other Respiratory: Denies: no symptoms, cough, shortness of breath, SOB with excertion, SOB at rest, sputum, wheezing, other Gastrointestinal/Abdominal: Denies: no symptoms, abdomen distended, abdominal pain, black stools, tarry stools, blood in stool, constipated, diarrhea, difficulty swallowing, nausea, poor appetite, poor fluid intake, rectal bleeding , vomiting, other Genitourinary: Denies: no symptoms, burning, discharge, frequency, flank pain, hematuria, incontinence, pain, urgency, other Neurologic/Psychiatric: Denies: no symptoms, anxiety, depressed, emotional problems, headache, numbness, paresthesia, pre-existing deficit, seizure, tingling, tremors, weakness, other Endocrine: Denies: no symptoms, excessive sweating, flushing, intolerance to cold, intolerance to heat, increased hunger, increased thirst, increased urine, unexplained weight gain, unexplained weight loss, other Allergies: Coded Allergies: No Known Allergies (Verified , 07/21/11) Subjective 06/02: no events, no bleeding reported, no f/c, no major changes Objective Objective Current Medications Medications (Trade) Dose Ordered Sig/Divya Route PRN Reason Start Time Stop Time Status Last Admin Dose Admin Acetaminophen (Tylenol) 650 mg Q4H PRN ORAL Mild Pain (Pain Scale 1-3) 05/28/19 18:45 06/27/19 18:44 Acetaminophen (Tylenol) 650 mg Q4H PRN ORAL fever (temp>100.5F) 05/28/19 18:45 06/22/19 18:44 Aripiprazole (Abilify) 15 mg DAILY ORAL 05/29/19 09:00 06/23/19 08:59 06/02/19 09:28 Atorvastatin Calcium (Lipitor) 40 mg QHS ORAL 05/28/19 21:00 06/23/19 08:59 06/01/19 20:40 Carvedilol (Coreg) 25 mg EVERY 12 HOURS ORAL 06/01/19 21:00 06/23/19 20:59 06/02/19 09:29 Dextrose (Dextrose 50%) 25 ml Q30M PRN IV Hypoglycemia 05/28/19 18:45 06/22/19 18:14 Dextrose (Dextrose 50%) 50 ml Q30M PRN IV Hypoglycemia 05/28/19 18:45 06/22/19 18:14 Diphenhydramine HCl (Benadryl) 25 mg Q6H PRN ORAL Itching/Pruritis 05/28/19 18:45 06/27/19 18:44 05/30/19 01:58 Docusate Sodium (Colace) 100 mg THREE TIMES A DAY ORAL 05/29/19 09:00 06/23/19 12:59 06/02/19 12:20 Isosorbide Mononitrate (Imdur) 60 mg DAILY ORAL 05/29/19 09:00 06/23/19 08:59 06/02/19 09:29 Lisinopril (Zestril) 10 mg DAILY ORAL 06/02/19 09:00 06/23/19 08:59 06/02/19 09:29 Metoclopramide HCl (Reglan) 10 mg Q6H PRN IVP Nausea & Vomiting 05/28/19 18:45 06/27/19 18:44 Ondansetron HCl (Zofran) 4 mg Q6H PRN IVP Nausea & Vomiting 05/28/19 18:45 06/27/19 18:44 Pantoprazole (Protonix) 40 mg EVERY 12 HOURS ORAL 05/28/19 21:00 06/23/19 20:59 06/02/19 09:29 Prochlorperazine (Compazine) 10 mg Q6H PRN IVP Nausea & Vomiting 05/28/19 18:45 06/27/19 18:44 Quetiapine Fumarate (SEROquel) 12.5 mg Q8H PRN ORAL aggitation 05/31/19 09:00 06/30/19 08:59 05/31/19 15:40 Sertraline HCl (Zoloft) 50 mg DAILY ORAL 05/29/19 09:00 06/23/19 08:59 06/02/19 09:28 Sevelamer Carbonate (Renvela) 1,600 mg THREE TIMES A DAY ORAL 05/29/19 09:00 06/23/19 08:59 06/02/19 12:20 Vancomycin HCl (Vanco rx to dose) 1 ea DAILY PRN MISC Per rx protocol 05/28/19 18:45 06/27/19 18:44 Vitamin B Complex/ Vit C/Folic Acid (Nephrovite) 1 tab DAILY ORAL 05/29/19 09:00 06/23/19 08:59 06/02/19 09:29 Last 24 Hour Vital Signs Date Time Temp Pulse Resp B/P (MAP) Pulse Ox O2 Delivery O2 Flow Rate FiO2 06/02/19 12:00 98.3 72 18 135/79 (97) 97 06/02/19 09:36 97 Nasal Cannula 2.0 28 06/02/19 09:29 120/68 06/02/19 09:29 77 120/68 06/02/19 09:29 120/68 06/02/19 09:00 Nasal Cannula 2.0 06/02/19 08:00 98.2 77 17 120/68 (85) 98 06/02/19 04:00 98.8 64 18 134/93 (107) 95 06/02/19 00:00 97.6 79 19 104/66 (79) 94 06/01/19 21:00 Nasal Cannula 2.0 06/01/19 20:39 88 130/68 06/01/19 20:00 98.7 88 19 130/68 (88) 94 06/01/19 20:00 94 Nasal Cannula 2.0 28 06/01/19 16:00 98.7 87 20 94/64 (74) 96 06/01/19 12:00 96.7 87 20 94/64 (74) 96 06/01/19 09:00 Nasal Cannula 2.0 06/01/19 09:00 98.6 77 20 124/66 (85) 100 06/01/19 09:00 124/66 06/01/19 07:05 98 Nasal Cannula 2.0 28 06/01/19 04:00 98.5 92 21 91/61 (71) 95 06/01/19 00:00 99.0 94 21 90/64 (73) 95 05/31/19 22:01 98 Nasal Cannula 2.0 28 05/31/19 21:00 90 90/61 05/31/19 21:00 Nasal Cannula 2.0 05/31/19 20:00 99.9 90 18 90/61 (71) 97 05/31/19 17:46 98.2 85 18 103/58 (73) 98 8/18/19 16:00 97.7 97 18 78/55 (63) 98 Intake and Output 06/01/19 06/02/19 19:00 07:00 Intake Total 200 ml 250 ml Output Total 2000 ml Balance -1800 ml 250 ml Intake Oral 200 ml 250 ml Hemodialysis UF 2000 ml # Voids 2 Labs Test 05/31/19 04:30 05/31/19 06:32 05/31/19 16:58 06/01/19 05:05 White Blood Count 9.3 K/UL (4.8-10.8) 10.5 K/UL (4.8-10.8) Red Blood Count 3.70 M/UL (4.70-6.10) 3.26 M/UL (4.70-6.10) Hemoglobin 10.9 G/DL (14.2-18.0) 9.7 G/DL (14.2-18.0) Hematocrit 35.8 % (42.0-52.0) 29.4 % (42.0-52.0) Mean Corpuscular Volume 97 FL (80-99) 90 FL (80-99) Mean Corpuscular Hemoglobin 29.3 PG (27.0-31.0) 29.8 PG (27.0-31.0) Mean Corpuscular Hemoglobin Concent 30.4 G/DL (32.0-36.0) 33.1 G/DL (32.0-36.0) Red Cell Distribution Width 15.2 % (11.6-14.8) 14.5 % (11.6-14.8) Platelet Count 196 K/UL (150-450) 203 K/UL (150-450) Mean Platelet Volume 5.9 FL (6.5-10.1) 5.7 FL (6.5-10.1) Neutrophils (%) (Auto) 66.7 % (45.0-75.0) 69.9 % (45.0-75.0) Lymphocytes (%) (Auto) 21.6 % (20.0-45.0) 16.5 % (20.0-45.0) Monocytes (%) (Auto) 8.2 % (1.0-10.0) 8.5 % (1.0-10.0) Eosinophils (%) (Auto) 2.4 % (0.0-3.0) 2.4 % (0.0-3.0) Basophils (%) (Auto) 1.1 % (0.0-2.0) 2.6 % (0.0-2.0) Sodium Level 141 MMOL/L (136-145) Potassium Level 4.6 MMOL/L (3.5-5.1) Chloride Level 105 MMOL/L (98-107) Carbon Dioxide Level 26 MMOL/L (21-32) Anion Gap 10 mmol/L (5-15) Blood Urea Nitrogen 19 mg/dL (7-18) Creatinine 6.0 MG/DL (0.55-1.30) Estimat Glomerular Filtration Rate 11.3 mL/min (>60) Glucose Level 103 MG/DL (74-106) Uric Acid 6.0 MG/DL (2.6-7.2) Calcium Level 8.7 MG/DL (8.5-10.1) Phosphorus Level 4.7 MG/DL (2.5-4.9) Magnesium Level 2.1 MG/DL (1.8-2.4) Total Bilirubin 0.6 MG/DL (0.2-1.0) Gamma Glutamyl Transpeptidase 26 U/L (5-85) Aspartate Amino Transf (AST/SGOT) 24 U/L (15-37) Alanine Aminotransferase (ALT/SGPT) 8 U/L (12-78) Alkaline Phosphatase 190 U/L (46-116) Ammonia 25 umol/L (11-32) C-Reactive Protein, Quantitative 19.2 mg/dL (0.00-0.90) Pro-B-Type Natriuretic Peptide 83477 pg/mL (0-125) Total Protein 7.1 G/DL (6.4-8.2) Albumin 2.0 G/DL (3.4-5.0) Globulin 5.1 g/dL Albumin/Globulin Ratio 0.4 (1.0-2.7) Random Vancomycin Level 17.7 ug/mL Prothrombin Time 59.6 SEC (9.30-11.50) Prothromb Time International Ratio 6.2 (0.9-1.1) Test 06/01/19 13:45 06/02/19 05:05 Prothrombin Time 14.0 SEC (9.30-11.50) 13.7 SEC (9.30-11.50) Prothromb Time International Ratio 1.3 (0.9-1.1) 1.3 (0.9-1.1) Activated Partial Thromboplast Time 39 SEC (23-33) 39 SEC (23-33) Fibrinogen 352 mg/dL (200-400) D-Dimer 1.46 mg/L FEU (0.00-0.49) White Blood Count 14.1 K/UL (4.8-10.8) Red Blood Count 3.61 M/UL (4.70-6.10) Hemoglobin 10.5 G/DL (14.2-18.0) Hematocrit 34.6 % (42.0-52.0) Mean Corpuscular Volume 96 FL (80-99) Mean Corpuscular Hemoglobin 29.1 PG (27.0-31.0) Mean Corpuscular Hemoglobin Concent 30.3 G/DL (32.0-36.0) Red Cell Distribution Width 15.2 % (11.6-14.8) Platelet Count 189 K/UL (150-450) Mean Platelet Volume 6.2 FL (6.5-10.1) Neutrophils (%) (Auto) 79.1 % (45.0-75.0) Lymphocytes (%) (Auto) 11.1 % (20.0-45.0) Monocytes (%) (Auto) 8.1 % (1.0-10.0) Eosinophils (%) (Auto) 1.0 % (0.0-3.0) Basophils (%) (Auto) 0.8 % (0.0-2.0) Sodium Level 144 MMOL/L (136-145) Potassium Level 4.6 MMOL/L (3.5-5.1) Chloride Level 107 MMOL/L (98-107) Carbon Dioxide Level 27 MMOL/L (21-32) Anion Gap 10 mmol/L (5-15) Blood Urea Nitrogen 21 mg/dL (7-18) Creatinine 5.9 MG/DL (0.55-1.30) Estimat Glomerular Filtration Rate 11.5 mL/min (>60) Glucose Level 148 MG/DL (74-106) Calcium Level 8.9 MG/DL (8.5-10.1) Height (Feet): 5 Height (Inches): 10.00 Weight (Pounds): 186 Objective PHYSICAL EXAMINATION: VITAL SIGNS: Show blood pressure of 126/80, pulse was as high as 126, respirations 18, and temperature is 97. HEAD AND NECK: Showed no JVD. LUNGS: Decreased breath sounds. CARDIOVASCULAR: Shows irregular irregular S1 and S2 with no gallop or murmur. The dialysis access is in the left chest. ABDOMEN: Soft. EXTREMITIES: A 1+ pitting edema. Left 4th toe gangrene in dressing Kendell Fitzgerald MD Jun 02, 2019 14:04
--- NOTE | 2019-06-02 15:16 | NUR ---
NURSE NOTES: scheduled HD with [facility] on 06/03/2019. spoke to Osman.
--- NOTE | 2019-06-02 15:17 | Surgery Progress Note ---
Surgery Progress Note Subjective Additional Comments leukocytosis otherwise stable Objective Last 24 Hour Vital Signs Date Time Temp Pulse Resp B/P (MAP) Pulse Ox O2 Delivery O2 Flow Rate FiO2 06/02/19 12:00 98.3 72 18 135/79 (97) 97 06/02/19 09:36 97 Nasal Cannula 2.0 28 06/02/19 09:29 120/68 06/02/19 09:29 77 120/68 06/02/19 09:29 120/68 06/02/19 09:00 Nasal Cannula 2.0 06/02/19 08:00 98.2 77 17 120/68 (85) 98 06/02/19 04:00 98.8 64 18 134/93 (107) 95 06/02/19 00:00 97.6 79 19 104/66 (79) 94 06/01/19 21:00 Nasal Cannula 2.0 06/01/19 20:39 88 130/68 06/01/19 20:00 98.7 88 19 130/68 (88) 94 06/01/19 20:00 94 Nasal Cannula 2.0 28 06/01/19 16:00 98.7 87 20 94/64 (74) 96 I&O Intake and Output 06/01/19 06/02/19 19:00 07:00 Intake Total 200 ml 250 ml Output Total 2000 ml Balance -1800 ml 250 ml Intake Oral 200 ml 250 ml Hemodialysis UF 2000 ml # Voids 2 Dressing: dry Wound: other Drains: other Cardiovascular: RSR Respiratory: clear Abdomen: non-tender, present bowel sounds Extremities: cyanosis Laboratory Tests Test 06/02/19 05:05 White Blood Count 14.1 K/UL (4.8-10.8) H Red Blood Count 3.61 M/UL (4.70-6.10) L Hemoglobin 10.5 G/DL (14.2-18.0) L Hematocrit 34.6 % (42.0-52.0) L Mean Corpuscular Volume 96 FL (80-99) Mean Corpuscular Hemoglobin 29.1 PG (27.0-31.0) Mean Corpuscular Hemoglobin Concent 30.3 G/DL (32.0-36.0) L Red Cell Distribution Width 15.2 % (11.6-14.8) H Platelet Count 189 K/UL (150-450) Mean Platelet Volume 6.2 FL (6.5-10.1) L Neutrophils (%) (Auto) 79.1 % (45.0-75.0) H Lymphocytes (%) (Auto) 11.1 % (20.0-45.0) L Monocytes (%) (Auto) 8.1 % (1.0-10.0) Eosinophils (%) (Auto) 1.0 % (0.0-3.0) Basophils (%) (Auto) 0.8 % (0.0-2.0) Prothrombin Time 13.7 SEC (9.30-11.50) H Prothromb Time International Ratio 1.3 (0.9-1.1) H Activated Partial Thromboplast Time 39 SEC (23-33) H Sodium Level 144 MMOL/L (136-145) Potassium Level 4.6 MMOL/L (3.5-5.1) Chloride Level 107 MMOL/L (98-107) Carbon Dioxide Level 27 MMOL/L (21-32) Anion Gap 10 mmol/L (5-15) Blood Urea Nitrogen 21 mg/dL (7-18) H Creatinine 5.9 MG/DL (0.55-1.30) H Estimat Glomerular Filtration Rate 11.5 mL/min (>60) Glucose Level 148 MG/DL (74-106) H Calcium Level 8.9 MG/DL (8.5-10.1) Plan Problems: (1) Gangrene of toe Assessment & Plan: Patient with two partial thickness pressure injuries sacral cleft (proximal)(L)0.4cm x (W)0.3cm. Base of wound moist and viable Non- blanching erythema without induration periwound. (distal at perianal ) (L)1.7cm x (W)0.5cm. Base of wound moist and viable. Borders macerated. Non-Blanching erythema without induration periwound. Non-blanching erythema with fluctuance noted to L heel . Non-blanching erythema with fluctuance noted to R heel. L 4th metatarsal is necrotic but dry . appreciate podiatry input plan for amputation after vascular and medical clearance INR elevated will monitor appreciate vascular input 1. Medical optimization in progress. We will complete his noninvasive imaging with duplex and CT angiography of the aorta and lower extremity to delineate his vasculopathy. Should also have bilateral arm vein mapping and duplex. 2. The patient will strongly benefit from selective left leg angiography to assess for percutaneous revascularization prior to left fourth toe gangrene amputation by Podiatry service. 3. As for more permanent hemodialysis access, the patient will require bilateral upper arm venogram to assess the vein and central veins prior to new arm AV shunt placement. Recommendations: Necrotic L 4th metatarsal. etiology potentially vascular vs trauma. will order studies and work up. Apply Moisture Barrier Paste to Buttocks. Cover with Optifoam drsg . Change every 3 days and prn. Apply Cavilon Skin Barrier to both heels. Cover each heel with Optifoam drsg.Change every 7 days and PRN. Apply Betadine to L 4th metatarsal daily. Reposition at least every 2 hours or as tolerated. Off-load heels with pillow. Pt awaiting transfer to [facility] for possible re-vasc procedure and then further amp of L 4th toe. Killian Doyle Jun 02, 2019 15:17
[2019-06-02 16:00] VITALS: BP 140/80
--- NOTE | 2019-06-02 16:07 | NUR ---
SPEECH PATHOLOGY: SWALLOW/SPEECH THERAPY NOTE/WEEKLY SUMMARY: S: PATIENT CLEARED FOR ST INTERVENTION BY KALEIGH TOLENTINO. PATIENT SEEN FOR DYSPHAGIA (SEE SWALLOW EVAL FOR DETAILS) P.O. INTAKE REMAINS INSUFFICIENT TO SUPPORT NUTRITION/HYDRATION AND WOUND HEALING NEEDS, THEREFORE GOAL NOT MET GOALS MET FOR STAFF TRAINING WITH RETURN DEMONSTRATION RE: MEALTIME PROTOCOL POSTED AT BEDSIDE TO MINIMIZE RISK OF ASPIRATION PATIENT LETHARGIC AND PRESENTS WITH MULTIPLE MEDICAL COMPLICATIONS ORAL DEBRIS/FOOD PARTICLES NOTED IN PATIENTS MOUTH FROM PRIOR MEAL PATIENT TOO LETHARGIC TO PARTICIPATE IN P.O. INTAKE AT THIS TIME P: CONSIDER NON/ORAL FEEDING MANAGEMENT TO SUPPORT NUTRITION/HYDRATION AND WOUND HEALING NEEDS WITH P.O. FOR ORAL GRATIFICATION ONLY .
--- NOTE | 2019-06-02 17:33 | General Progress Note ---
Assessment/Plan Status: stable Assessment/Plan: 69 year oldmalewith a PMH of a fib on AC, ESRD on HD, anemia, htn, DM, COPD, HFPEF presented for acute hypoxemic respiratory failure # elevated wbc 2/2 Left foot 4th metatarsal dry gangrene? - no diarrhea, fever, cough or sign on exam including any wounds, source may be left toe - ctm cbc in am - id consult - cont current abx: vanco # UTI due to Enterococcus F - patient on vanco since 05/28? - pansensitive # Left foot 4th metatarsal dry gangrene - Surgical consultation appreciated. - podiatry consult appreciated - vascular consul appreciated plan: - Angiogram at [facility] th per request by vascular surg, transfer center aware: patient denied #Toxic metabolic encephalopathy #Hospital delirium - non violent restraints - prn seroquel 12.5 for agitation - delirium precautions # Acute Hypoxic Repiratory Failure likely 2/2 chf exacerbation- resolved - cardiac medications - echo with preserved EF 40-45 % - HD for fluid removal per Dr. Chen. HD 05/28, 05/30 and next 06/01 - RT - breathing treatments - Pulm Consult appreciated # Supratherapeutic INR - hold coumadin - vit k +/- FFP if patient bleeds -> 2.5mg vit po given 05/31 - daily INR needed - Pharmacy to dose. - heme consult, appreciate reqs f/u factors ordered - check actor VIII, PTT , PT, dic panel # Hyponatremia likely hypervolemic from chf - HD - CTM # ESRD - HD by Nephrology, Last HD 05/28 # Afib with episodes of WCT and AF with aberrancy, Dr. Stone consultation appreciated. Dr. Villegas covering this week. Digoxin was stopped and Carvedilol 25 mg BID - cont cardiac meds, management per cards - hold coumadin for now # Iron deficiency anemia - iron replacement # Dysphagia with aspiration risk - Discussed with ST - Dietary adjustment - Daily ST and adjustments as needed - GI consultation for PEG completed. Will proceed once INR is < 2, likely next week # Full Code # Dispo- SNF (prior resident) - Request PT and OT evaluation for mobility Subjective Allergies: Coded Allergies: No Known Allergies (Verified , 07/21/11) Subjective uto 2/2 patient not responding verbally per rn he has woken up throughout the day and eaten puree without coughing no diarrhea, no fevers, wbc elevated Objective Last 24 Hour Vital Signs Date Time Temp Pulse Resp B/P (MAP) Pulse Ox O2 Delivery O2 Flow Rate FiO2 06/02/19 16:00 98.4 79 18 140/80 (100) 98 06/02/19 12:00 98.3 72 18 135/79 (97) 97 06/02/19 09:36 97 Nasal Cannula 2.0 28 06/02/19 09:29 120/68 06/02/19 09:29 77 120/68 06/02/19 09:29 120/68 06/02/19 09:00 Nasal Cannula 2.0 06/02/19 08:00 98.2 77 17 120/68 (85) 98 06/02/19 04:00 98.8 64 18 134/93 (107) 95 06/02/19 00:00 97.6 79 19 104/66 (79) 94 06/01/19 21:00 Nasal Cannula 2.0 06/01/19 20:39 88 130/68 06/01/19 20:00 98.7 88 19 130/68 (88) 94 06/01/19 20:00 94 Nasal Cannula 2.0 28 Intake and Output 06/01/19 06/02/19 19:00 07:00 Intake Total 200 ml 250 ml Output Total 2000 ml Balance -1800 ml 250 ml Intake Oral 200 ml 250 ml Hemodialysis UF 2000 ml # Voids 2 Laboratory Tests 06/02/19 05:05: White Blood Count 14.1H, Red Blood Count 3.61L, Hemoglobin 10.5L, Hematocrit 34.6L, Mean Corpuscular Volume 96, Mean Corpuscular Hemoglobin 29.1, Mean Corpuscular Hemoglobin Concent 30.3L, Red Cell Distribution Width 15.2H, Platelet Count 189, Mean Platelet Volume 6.2L, Neutrophils (%) (Auto) 79.1H, Lymphocytes (%) (Auto) 11.1L, Monocytes (%) (Auto) 8.1, Eosinophils (%) (Auto) 1.0, Basophils (%) (Auto) 0.8, Prothrombin Time 13.7H, Prothromb Time International Ratio 1.3H, Activated Partial Thromboplast Time 39H, Sodium Level 144, Potassium Level 4.6, Chloride Level 107, Carbon Dioxide Level 27, Anion Gap 10, Blood Urea Nitrogen 21H, Creatinine 5.9H, Estimat Glomerular Filtration Rate 11.5, Glucose Level 148H, Calcium Level 8.9 06/02/19 15:23: Thrombin Time [Pending] Height (Feet): 5 Height (Inches): 10.00 Weight (Pounds): 186 Objective gen: fatigues, opens eyes, does not answer or follow commands cv: rrr,no m,r,g resp: ctab chest: left hd catheter with no surrounding erythema abd: soft non tender, no masses ext: left 4th digit gangrenous toe, no foul smell or active discharge, + tenderness Angie Locke DO Jun 02, 2019 17:33
--- NOTE | 2019-06-02 18:00 | NUR ---
NURSE NOTES: RN tried to get urine sample for urinalysis using strait cath and obtained 1ml. patient ESRD with HD. on condom cath no urine output all day.
--- NOTE | 2019-06-02 19:12 | Cardiac Electrophysiology PN ---
Assessment/Plan Assessment/Plan 1. Wide complex tachycardia, likely due to atrial fibrillation with rapid ventricular response and aberrant conduction. EF of 40 to 45 percent. 2. Atrial fibrillation with rapid ventricular response.On Coreg 12.5 mg bid and digoxin 0.125 mg daily. On Coumadin per pharmacy. 3. Hypertension. Stable. 4. Congestive heart failure with EF of 40 to 45 percent, could be due to atrial fibrillation with rapid ventricular response and tachy induced myopathy. On Dig, Coreg, Lisinopril, isordil and HD 5. COPD. 6. Fever and UTI. On antibiotics. 7. End-stage renal disease, on hemodialysis. 8. PVD with Ischemic left fourth toe dry gangrene with calcific multilevel arterial occlusive disease and absent popliteal and pedal pulses. Strongly benefit from selective left leg angiography to assess for percutaneous revascularization prior to left fourth toe gangrene amputation by Podiatry service per Dr Doherty 9. Thrombosed right arm AV shunt, currently on dialysis through chest Perma-catheter SIN RN Subjective Subjective No events. On Abx Objective Last 24 Hour Vital Signs Date Time Temp Pulse Resp B/P (MAP) Pulse Ox O2 Delivery O2 Flow Rate FiO2 06/02/19 16:00 98.4 79 18 140/80 (100) 98 06/02/19 12:00 98.3 72 18 135/79 (97) 97 06/02/19 09:36 97 Nasal Cannula 2.0 28 06/02/19 09:29 120/68 06/02/19 09:29 77 120/68 06/02/19 09:29 120/68 06/02/19 09:00 Nasal Cannula 2.0 06/02/19 08:00 98.2 77 17 120/68 (85) 98 06/02/19 04:00 98.8 64 18 134/93 (107) 95 06/02/19 00:00 97.6 79 19 104/66 (79) 94 06/01/19 21:00 Nasal Cannula 2.0 06/01/19 20:39 88 130/68 06/01/19 20:00 98.7 88 19 130/68 (88) 94 06/01/19 20:00 94 Nasal Cannula 2.0 28 Intake and Output 06/01/19 06/02/19 19:00 07:00 Intake Total 200 ml 250 ml Output Total 2000 ml Balance -1800 ml 250 ml Intake Oral 200 ml 250 ml Hemodialysis UF 2000 ml # Voids 2 Laboratory Tests Test 06/02/19 05:05 06/02/19 15:23 White Blood Count 14.1 K/UL (4.8-10.8) H Red Blood Count 3.61 M/UL (4.70-6.10) L Hemoglobin 10.5 G/DL (14.2-18.0) L Hematocrit 34.6 % (42.0-52.0) L Mean Corpuscular Volume 96 FL (80-99) Mean Corpuscular Hemoglobin 29.1 PG (27.0-31.0) Mean Corpuscular Hemoglobin Concent 30.3 G/DL (32.0-36.0) L Red Cell Distribution Width 15.2 % (11.6-14.8) H Platelet Count 189 K/UL (150-450) Mean Platelet Volume 6.2 FL (6.5-10.1) L Neutrophils (%) (Auto) 79.1 % (45.0-75.0) H Lymphocytes (%) (Auto) 11.1 % (20.0-45.0) L Monocytes (%) (Auto) 8.1 % (1.0-10.0) Eosinophils (%) (Auto) 1.0 % (0.0-3.0) Basophils (%) (Auto) 0.8 % (0.0-2.0) Prothrombin Time 13.7 SEC (9.30-11.50) H Prothromb Time International Ratio 1.3 (0.9-1.1) H Activated Partial Thromboplast Time 39 SEC (23-33) H Sodium Level 144 MMOL/L (136-145) Potassium Level 4.6 MMOL/L (3.5-5.1) Chloride Level 107 MMOL/L (98-107) Carbon Dioxide Level 27 MMOL/L (21-32) Anion Gap 10 mmol/L (5-15) Blood Urea Nitrogen 21 mg/dL (7-18) H Creatinine 5.9 MG/DL (0.55-1.30) H Estimat Glomerular Filtration Rate 11.5 mL/min (>60) Glucose Level 148 MG/DL (74-106) H Calcium Level 8.9 MG/DL (8.5-10.1) Thrombin Time Pending Objective HEAD AND NECK: No JVD. LUNGS: Decreased breath sounds. CARDIOVASCULAR: Shows irregular irregular S1 and S2 with no gallop or murmur. The dialysis access is in the left chest. ABDOMEN: Soft. EXTREMITIES: 1+ pitting edema. Bandar Pina MD Jun 02, 2019 19:12
--- NOTE | 2019-06-02 19:37 | NUR ---
HAND-OFF: Report given to KALEIGH Astudillo.
--- NOTE | 2019-06-02 19:47 | NUR ---
NURSE NOTES: Received report from KALEIGH Castro. Patient A&Ox1. On nasal cannula. Complains of pain. Will medicate per MD order. IV intact, patent, and saline locked. Bed in lowest position with call light in reach. Will continue with plan of care.
[2019-06-02 20:00] VITALS: BP 99/59
--- NOTE | 2019-06-02 20:07 | General Progress Note ---
Assessment/Plan Status: stable Assessment/Plan: Assessment - CVA / AMS / Delirium - compromised swallow - elevated INR - resolved - COPD - CHF, reduced EF Recommendations - Family agreed to PEG - PEG placement Thday am if OK with consultants - aspiration precautions - Elevate HOB Subjective Allergies: Coded Allergies: No Known Allergies (Verified , 07/21/11) Subjective above noted confused INR noted d/w heme re PEG placement Objective Last 24 Hour Vital Signs Date Time Temp Pulse Resp B/P (MAP) Pulse Ox O2 Delivery O2 Flow Rate FiO2 06/02/19 19:22 97 Nasal Cannula 2.0 28 06/02/19 16:00 98.4 79 18 140/80 (100) 98 06/02/19 12:00 98.3 72 18 135/79 (97) 97 06/02/19 09:36 97 Nasal Cannula 2.0 28 06/02/19 09:29 120/68 06/02/19 09:29 77 120/68 06/02/19 09:29 120/68 06/02/19 09:00 Nasal Cannula 2.0 06/02/19 08:00 98.2 77 17 120/68 (85) 98 06/02/19 04:00 98.8 64 18 134/93 (107) 95 06/02/19 00:00 97.6 79 19 104/66 (79) 94 06/01/19 21:00 Nasal Cannula 2.0 06/01/19 20:39 88 130/68 Intake and Output 06/01/19 06/02/19 19:00 07:00 Intake Total 200 ml 250 ml Output Total 2000 ml Balance -1800 ml 250 ml Intake Oral 200 ml 250 ml Hemodialysis UF 2000 ml # Voids 2 Laboratory Tests 06/02/19 05:05: White Blood Count 14.1H, Red Blood Count 3.61L, Hemoglobin 10.5L, Hematocrit 34.6L, Mean Corpuscular Volume 96, Mean Corpuscular Hemoglobin 29.1, Mean Corpuscular Hemoglobin Concent 30.3L, Red Cell Distribution Width 15.2H, Platelet Count 189, Mean Platelet Volume 6.2L, Neutrophils (%) (Auto) 79.1H, Lymphocytes (%) (Auto) 11.1L, Monocytes (%) (Auto) 8.1, Eosinophils (%) (Auto) 1.0, Basophils (%) (Auto) 0.8, Prothrombin Time 13.7H, Prothromb Time International Ratio 1.3H, Activated Partial Thromboplast Time 39H, Sodium Level 144, Potassium Level 4.6, Chloride Level 107, Carbon Dioxide Level 27, Anion Gap 10, Blood Urea Nitrogen 21H, Creatinine 5.9H, Estimat Glomerular Filtration Rate 11.5, Glucose Level 148H, Calcium Level 8.9 06/02/19 15:23: Thrombin Time [Pending] Height (Feet): 5 Height (Inches): 10.00 Weight (Pounds): 186 Objective WDWn obese AA man NCAT supple CTA RRR abd soft no edema Lara La MD Jun 02, 2019 20:07
[2019-06-02] MEDS: Atorvastatin 20mg tab ORAL SCH ×2 (21:00→21:45)
[2019-06-02] MEDS ORDERED: HYDROcodone/Acetamin 10/325 tab ORAL PRN (21:15)
--- NOTE | 2019-06-02 21:18 | Infectious Diseases Prog Note ---
Assessment/Plan Assessment/Plan Full consult to follow: A) 1) enterococcus uti 2) new onset leukocytosis, ? sepsis, ams 3) left foot 4 toe gangrene - dry P) 1) vancomycin for now 2) reculture, monitor labs, check chest x-ray 3) plan on revascularization 4) thank you Subjective Allergies: Coded Allergies: No Known Allergies (Verified , 07/21/11) Objective Vital Signs Last 24 Hour Vital Signs Date Time Temp Pulse Resp B/P (MAP) Pulse Ox O2 Delivery O2 Flow Rate FiO2 06/02/19 19:22 97 Nasal Cannula 2.0 28 06/02/19 16:00 98.4 79 18 140/80 (100) 98 06/02/19 12:00 98.3 72 18 135/79 (97) 97 06/02/19 09:36 97 Nasal Cannula 2.0 28 06/02/19 09:29 120/68 06/02/19 09:29 77 120/68 06/02/19 09:29 120/68 06/02/19 09:00 Nasal Cannula 2.0 06/02/19 08:00 98.2 77 17 120/68 (85) 98 06/02/19 04:00 98.8 64 18 134/93 (107) 95 06/02/19 00:00 97.6 79 19 104/66 (79) 94 Height (Feet): 5 Height (Inches): 10.00 Weight (Pounds): 186 Laboratory Tests Test 06/02/19 05:05 06/02/19 15:23 White Blood Count 14.1 K/UL (4.8-10.8) H Red Blood Count 3.61 M/UL (4.70-6.10) L Hemoglobin 10.5 G/DL (14.2-18.0) L Hematocrit 34.6 % (42.0-52.0) L Mean Corpuscular Volume 96 FL (80-99) Mean Corpuscular Hemoglobin 29.1 PG (27.0-31.0) Mean Corpuscular Hemoglobin Concent 30.3 G/DL (32.0-36.0) L Red Cell Distribution Width 15.2 % (11.6-14.8) H Platelet Count 189 K/UL (150-450) Mean Platelet Volume 6.2 FL (6.5-10.1) L Neutrophils (%) (Auto) 79.1 % (45.0-75.0) H Lymphocytes (%) (Auto) 11.1 % (20.0-45.0) L Monocytes (%) (Auto) 8.1 % (1.0-10.0) Eosinophils (%) (Auto) 1.0 % (0.0-3.0) Basophils (%) (Auto) 0.8 % (0.0-2.0) Prothrombin Time 13.7 SEC (9.30-11.50) H Prothromb Time International Ratio 1.3 (0.9-1.1) H Activated Partial Thromboplast Time 39 SEC (23-33) H Sodium Level 144 MMOL/L (136-145) Potassium Level 4.6 MMOL/L (3.5-5.1) Chloride Level 107 MMOL/L (98-107) Carbon Dioxide Level 27 MMOL/L (21-32) Anion Gap 10 mmol/L (5-15) Blood Urea Nitrogen 21 mg/dL (7-18) H Creatinine 5.9 MG/DL (0.55-1.30) H Estimat Glomerular Filtration Rate 11.5 mL/min (>60) Glucose Level 148 MG/DL (74-106) H Calcium Level 8.9 MG/DL (8.5-10.1) Thrombin Time Pending Current Medications Medications (Trade) Dose Ordered Sig/Divya Route PRN Reason Start Time Stop Time Status Last Admin Dose Admin Acetaminophen (Tylenol) 650 mg Q4H PRN ORAL Mild Pain (Pain Scale 1-3) 05/28/19 18:45 06/27/19 18:44 Acetaminophen (Tylenol) 650 mg Q4H PRN ORAL fever (temp>100.5F) 05/28/19 18:45 06/22/19 18:44 Aripiprazole (Abilify) 15 mg DAILY ORAL 05/29/19 09:00 06/23/19 08:59 06/02/19 09:28 Atorvastatin Calcium (Lipitor) 40 mg QHS ORAL 05/28/19 21:00 06/23/19 08:59 06/01/19 20:40 Carvedilol (Coreg) 25 mg EVERY 12 HOURS ORAL 06/01/19 21:00 06/23/19 20:59 06/02/19 09:29 Dextrose (Dextrose 50%) 25 ml Q30M PRN IV Hypoglycemia 05/28/19 18:45 06/22/19 18:14 Dextrose (Dextrose 50%) 50 ml Q30M PRN IV Hypoglycemia 05/28/19 18:45 06/22/19 18:14 Diphenhydramine HCl (Benadryl) 25 mg Q6H PRN ORAL Itching/Pruritis 05/28/19 18:45 06/27/19 18:44 05/30/19 01:58 Docusate Sodium (Colace) 100 mg THREE TIMES A DAY ORAL 05/29/19 09:00 06/23/19 12:59 06/02/19 17:52 Isosorbide Mononitrate (Imdur) 60 mg DAILY ORAL 05/29/19 09:00 06/23/19 08:59 06/02/19 09:29 Lisinopril (Zestril) 10 mg DAILY ORAL 06/02/19 09:00 06/23/19 08:59 06/02/19 09:29 Metoclopramide HCl (Reglan) 10 mg Q6H PRN IVP Nausea & Vomiting 05/28/19 18:45 06/27/19 18:44 Ondansetron HCl (Zofran) 4 mg Q6H PRN IVP Nausea & Vomiting 05/28/19 18:45 06/27/19 18:44 Pantoprazole (Protonix) 40 mg EVERY 12 HOURS ORAL 05/28/19 21:00 06/23/19 20:59 06/02/19 09:29 Prochlorperazine (Compazine) 10 mg Q6H PRN IVP Nausea & Vomiting 05/28/19 18:45 06/27/19 18:44 Quetiapine Fumarate (SEROquel) 12.5 mg Q8H PRN ORAL aggitation 05/31/19 09:00 06/30/19 08:59 05/31/19 15:40 Sertraline HCl (Zoloft) 50 mg DAILY ORAL 05/29/19 09:00 06/23/19 08:59 06/02/19 09:28 Sevelamer Carbonate (Renvela) 1,600 mg THREE TIMES A DAY ORAL 05/29/19 09:00 06/23/19 08:59 06/02/19 17:52 Vancomycin HCl (Vanco rx to dose) 1 ea DAILY PRN MISC Per rx protocol 05/28/19 18:45 06/27/19 18:44 Vitamin B Complex/ Vit C/Folic Acid (Nephrovite) 1 tab DAILY ORAL 05/29/19 09:00 06/23/19 08:59 06/02/19 09:29 Ilya Thornton MD Jun 02, 2019 21:18
--- NOTE | 2019-06-02 23:30 | Consultation ---
DATE OF CONSULTATION: 06/02/2019 HISTORY OF PRESENT ILLNESS: The patient is a 69-year-old male who I am familiar with from [facility]. The patient has a history of dementia, anxiety, depression. He was recently started on Abilify as well as Zoloft. The patient is more confused than baseline. He has been pulling out his IV lines and is having waxing and waning consciousness, not able to be engaged during the evaluation, memory impairment. PAST PSYCHIATRIC HISTORY: Dementia, anxiety. PAST MEDICAL HISTORY: Significant for cardiomyopathy, atrial fibrillation, anemia, hypertension, COPD, pneumonia, sepsis, UTI, diabetes. ALLERGIES: No known drug allergies. SUBSTANCE ABUSE HISTORY: No known history of illicit drug use or alcohol. MENTAL STATUS EXAMINATION: The patient is having waxing and waning consciousness, disoriented. Mood is agitated. Affect is flat. Thought process, disorganized. Thought content, no suicidal or homicidal ideations. ASSESSMENT: [place] I Acute encephalopathy. Dementia. Major depressive disorder. Anxiety disorder . [place] II Deferred. [place] III As above. [place] IV Low [place] V 20 PLAN: 1. The patient will be continued on Abilify. 2. Zoloft 50 mg in the morning. 3. Continue restraints. Glenda Rene M.D. DR: Shahab JOB#: [id number] CC: [email or web address]
[2019-06-03] VITALS: BP 104/57
[2019-06-03 04:00] VITALS: BP 129/69
[2019-06-03 06:48] LABS: BASOPHILS % (AUTO) 0.8 % (0.0-2.0); EOSINOPHILS % (AUTO) 0.7 % (0.0-3.0); HEMATOCRIT 31.8 % (42.0-52.0); HEMOGLOBIN 9.7 G/DL (14.2-18.0); LYMPHOCYTES % (AUTO) 10.1 % (20.0-45.0); MEAN CORPUSCULAR VOLUME 96 FL (80-99); MONOCYTES % (AUTO) 6.6 % (1.0-10.0); NEUTROPHILS % (AUTO) 81.9 % (45.0-75.0); PLATELET COUNT 115 K/UL (150-450); RED BLOOD COUNT 3.32 M/UL (4.70-6.10); RED CELL DISTRIBUTION WIDTH 15.7 % (11.6-14.8); WHITE BLOOD COUNT 14.4 K/UL (4.8-10.8)
[2019-06-03 07:09] LABS: ANION GAP 10 mmol/L (5-15); BLOOD UREA NITROGEN 32 mg/dL (7-18); CALCIUM 8.6 MG/DL (8.5-10.1); CARBON DIOXIDE 25 MMOL/L (21-32); CHLORIDE 108 MMOL/L (98-107); CREATININE 7.2 MG/DL (0.55-1.30); POTASSIUM 4.9 MMOL/L (3.5-5.1); SODIUM 143 MMOL/L (136-145)
--- NOTE | 2019-06-03 07:29 | NUR ---
HAND-OFF: Report given to Cedric Silva RN.
--- NOTE | 2019-06-03 07:30 | NUR ---
NURSE NOTES: Received pt in bed. AO x 1. On NS 2 L. IV on 18g intact and patent, with saline lock. Bed in the lowest, locked, and alarm on. Bilateral soft restraints on. Skin intact and pulse present. Call light within reach. Will continue to monitor
[2019-06-03 08:00] VITALS: BP 125/72
[2019-06-03] MEDS: Docusate 100mg cap ORAL SCH ×3 (08:40→18:00)
[2019-06-03] MEDS: Lisinopril 10mg tab ORAL SCH (08:40)
[2019-06-03] MEDS: Imdur 30mg tab ORAL SCH (08:40)
[2019-06-03 08:41] LABS: ALANINE AMINOTRANSFERASE 8 U/L (12-78); ALBUMIN 1.7 G/DL (3.4-5.0); ALKALINE PHOSPHATASE 192 U/L (46-116); ASPARTATE AMINO TRANSFERASE 26 U/L (15-37); BILIRUBIN,DIRECT 0.2 MG/DL (0.0-0.3); BILIRUBIN,TOTAL 0.8 MG/DL (0.2-1.0); PHOSPHORUS 3.5 MG/DL (2.5-4.9)
[2019-06-03] MEDS: Carvedilol 25mg Tab ORAL SCH (08:41)
[2019-06-03] MEDS: Nephrovite tab (Rena-Vite) ORAL SCH (08:41)
[2019-06-03] MEDS: Sertraline 50mg tab ORAL SCH (08:41)
--- NOTE | 2019-06-03 09:31 | Diagnostic Imaging Report ---
Indication: Shortness of breath Technique: One view of the chest Comparison: 05/27/2019 Findings: Left chest pacemaker, left jugular tunneled dialysis catheter are again demonstrated. Some atelectatic changes are seen in the left perihilar region. There is slight blunting of the left costophrenic sulcus which appears improved. There is decreased interstitial congestion. No definite acute infiltrates. The heart is borderline enlarged. Impression: Decreased interstitial congestion, since prior study of 05/27/2019 Decreased left pleural effusion Other stable findings as described
--- NOTE | 2019-06-03 11:30 | Hematology/Onc Progress Note ---
Assessment/Plan Assessment/Plan Assessment and Recs: # Supertherapeutic INR -- ongoing, without probably cause, reviewed patient's labs, she has elevation in both PT/PTT(intrinsic pathway), the cause of this can be Factor V deficiency (can also occur due to abxor inhibitor to FV), Factor Xdeficiency(can occur with coumadin and a/w amyloid), vit K (late), prothrombin deficiency,& hypofibrinogenemia (in this case likely coumadin related --> inr trend 6-->1.3-->1.3 --> Factor V and Factor X ordered, results pending --> Have orderd a mixing study for aquired causes --> thrombin ordered and fibrinogen is 352 --> vitamin K to be given IV or PO for maximal absorption if rise in pt/ptt/inr in next several days (have ordered for 06/03) PROCEDURE TOMORROW --> also may consider ffp if further rise in pt/ptt/inr --> HOLD COUMADIN # Anemia of chronic disease due to underlying chronic medical issues, multifactorial --> Anemia workup has been ordered, rule out gi bleed --> No evidence of hemolysis is noted, peripheral smear has been reviewed. --> Hgb goal >7. Transfuse prn. 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 GREATLY APPRECIATE CONSULTATION. Subjective Allergies: Coded Allergies: No Known Allergies (Verified , 07/21/11) Subjective 06/02: no events, no bleeding reported, no f/c, no major changes 06/03 no events, on abx, imaging reviewed, vs stable Objective Objective Current Medications Medications (Trade) Dose Ordered Sig/Divya Route PRN Reason Start Time Stop Time Status Last Admin Dose Admin Acetaminophen (Tylenol) 650 mg Q4H PRN ORAL Mild Pain (Pain Scale 1-3) 05/28/19 18:45 06/27/19 18:44 Acetaminophen (Tylenol) 650 mg Q4H PRN ORAL fever (temp>100.5F) 05/28/19 18:45 06/22/19 18:44 Acetaminophen/ Hydrocodone Bitart ([place] 10/325) 1 tab Q6H PRN ORAL For Pain 4-10 06/02/19 21:15 06/09/19 21:14 Aripiprazole (Abilify) 15 mg DAILY ORAL 05/29/19 09:00 06/23/19 08:59 06/03/19 08:41 Atorvastatin Calcium (Lipitor) 40 mg QHS ORAL 05/28/19 21:00 06/23/19 08:59 06/01/19 20:40 Carvedilol (Coreg) 25 mg EVERY 12 HOURS ORAL 06/01/19 21:00 06/23/19 20:59 06/03/19 08:41 Dextrose (Dextrose 50%) 25 ml Q30M PRN IV Hypoglycemia 05/28/19 18:45 06/22/19 18:14 Dextrose (Dextrose 50%) 50 ml Q30M PRN IV Hypoglycemia 05/28/19 18:45 06/22/19 18:14 Diphenhydramine HCl (Benadryl) 25 mg Q6H PRN ORAL Itching/Pruritis 05/28/19 18:45 06/27/19 18:44 05/30/19 01:58 Docusate Sodium (Colace) 100 mg THREE TIMES A DAY ORAL 05/29/19 09:00 06/23/19 12:59 06/03/19 08:40 Isosorbide Mononitrate (Imdur) 60 mg DAILY ORAL 05/29/19 09:00 06/23/19 08:59 06/03/19 08:40 Lisinopril (Zestril) 10 mg DAILY ORAL 06/02/19 09:00 06/23/19 08:59 06/03/19 08:40 Metoclopramide HCl (Reglan) 10 mg Q6H PRN IVP Nausea & Vomiting 05/28/19 18:45 06/27/19 18:44 Ondansetron HCl (Zofran) 4 mg Q6H PRN IVP Nausea & Vomiting 05/28/19 18:45 06/27/19 18:44 Pantoprazole (Protonix) 40 mg EVERY 12 HOURS ORAL 05/28/19 21:00 06/23/19 20:59 06/03/19 08:41 Prochlorperazine (Compazine) 10 mg Q6H PRN IVP Nausea & Vomiting 05/28/19 18:45 06/27/19 18:44 Quetiapine Fumarate (SEROquel) 12.5 mg Q8H PRN ORAL aggitation 05/31/19 09:00 06/30/19 08:59 05/31/19 15:40 Sertraline HCl (Zoloft) 50 mg DAILY ORAL 05/29/19 09:00 06/23/19 08:59 06/03/19 08:41 Sevelamer Carbonate (Renvela) 1,600 mg THREE TIMES A DAY ORAL 05/29/19 09:00 06/23/19 08:59 06/03/19 08:41 Vancomycin HCl (Vanco rx to dose) 1 ea DAILY PRN MISC Per rx protocol 05/28/19 18:45 06/27/19 18:44 Vitamin B Complex/ Vit C/Folic Acid (Nephrovite) 1 tab DAILY ORAL 05/29/19 09:00 06/23/19 08:59 06/03/19 08:41 Last 24 Hour Vital Signs Date Time Temp Pulse Resp B/P (MAP) Pulse Ox O2 Delivery O2 Flow Rate FiO2 06/03/19 09:00 Nasal Cannula 2.0 06/03/19 08:41 99 125/72 06/03/19 08:40 125/72 06/03/19 08:40 125/72 06/03/19 08:07 95 Nasal Cannula 2.0 28 06/03/19 08:00 98.6 99 19 125/72 (89) 97 06/03/19 04:00 98.3 113 20 129/69 (89) 96 06/03/19 00:00 98.1 99 18 104/57 (73) 96 06/02/19 21:00 Nasal Cannula 2.0 06/02/19 21:00 103 99/59 06/02/19 20:00 98.3 103 20 99/59 (72) 96 06/02/19 19:22 97 Nasal Cannula 2.0 28 06/02/19 16:00 98.4 79 18 140/80 (100) 98 06/02/19 12:00 98.3 72 18 135/79 (97) 97 06/02/19 09:36 97 Nasal Cannula 2.0 28 06/02/19 09:29 120/68 06/02/19 09:29 77 120/68 06/02/19 09:29 120/68 06/02/19 09:00 Nasal Cannula 2.0 06/02/19 08:00 98.2 77 17 120/68 (85) 98 06/02/19 04:00 98.8 64 18 134/93 (107) 95 06/02/19 00:00 97.6 79 19 104/66 (79) 94 06/01/19 21:00 Nasal Cannula 2.0 06/01/19 20:39 88 130/68 06/01/19 20:00 98.7 88 19 130/68 (88) 94 06/01/19 20:00 94 Nasal Cannula 2.0 28 06/01/19 16:00 98.7 87 20 94/64 (74) 96 06/01/19 12:00 96.7 87 20 94/64 (74) 96 Intake and Output 06/02/19 06/03/19 19:00 07:00 Intake Total 640 ml Balance 640 ml Intake Oral 640 ml # Voids 2 1 # Bowel Movements 1 Labs Test 05/31/19 16:58 06/01/19 05:05 06/01/19 13:45 06/02/19 05:05 White Blood Count 10.5 K/UL (4.8-10.8) 14.1 K/UL (4.8-10.8) Red Blood Count 3.26 M/UL (4.70-6.10) 3.61 M/UL (4.70-6.10) Hemoglobin 9.7 G/DL (14.2-18.0) 10.5 G/DL (14.2-18.0) Hematocrit 29.4 % (42.0-52.0) 34.6 % (42.0-52.0) Mean Corpuscular Volume 90 FL (80-99) 96 FL (80-99) Mean Corpuscular Hemoglobin 29.8 PG (27.0-31.0) 29.1 PG (27.0-31.0) Mean Corpuscular Hemoglobin Concent 33.1 G/DL (32.0-36.0) 30.3 G/DL (32.0-36.0) Red Cell Distribution Width 14.5 % (11.6-14.8) 15.2 % (11.6-14.8) Platelet Count 203 K/UL (150-450) 189 K/UL (150-450) Mean Platelet Volume 5.7 FL (6.5-10.1) 6.2 FL (6.5-10.1) Neutrophils (%) (Auto) 69.9 % (45.0-75.0) 79.1 % (45.0-75.0) Lymphocytes (%) (Auto) 16.5 % (20.0-45.0) 11.1 % (20.0-45.0) Monocytes (%) (Auto) 8.5 % (1.0-10.0) 8.1 % (1.0-10.0) Eosinophils (%) (Auto) 2.4 % (0.0-3.0) 1.0 % (0.0-3.0) Basophils (%) (Auto) 2.6 % (0.0-2.0) 0.8 % (0.0-2.0) Prothrombin Time 14.0 SEC (9.30-11.50) 13.7 SEC (9.30-11.50) Prothromb Time International Ratio 1.3 (0.9-1.1) 1.3 (0.9-1.1) Activated Partial Thromboplast Time 39 SEC (23-33) 39 SEC (23-33) Fibrinogen 352 mg/dL (200-400) D-Dimer 1.46 mg/L FEU (0.00-0.49) Coagulation Factor VIII 563 % (50-150) Sodium Level 144 MMOL/L (136-145) Potassium Level 4.6 MMOL/L (3.5-5.1) Chloride Level 107 MMOL/L (98-107) Carbon Dioxide Level 27 MMOL/L (21-32) Anion Gap 10 mmol/L (5-15) Blood Urea Nitrogen 21 mg/dL (7-18) Creatinine 5.9 MG/DL (0.55-1.30) Estimat Glomerular Filtration Rate 11.5 mL/min (>60) Glucose Level 148 MG/DL (74-106) Calcium Level 8.9 MG/DL (8.5-10.1) Test 06/02/19 15:23 06/03/19 05:30 White Blood Count 14.4 K/UL (4.8-10.8) Red Blood Count 3.32 M/UL (4.70-6.10) Hemoglobin 9.7 G/DL (14.2-18.0) Hematocrit 31.8 % (42.0-52.0) Mean Corpuscular Volume 96 FL (80-99) Mean Corpuscular Hemoglobin 29.2 PG (27.0-31.0) Mean Corpuscular Hemoglobin Concent 30.4 G/DL (32.0-36.0) Red Cell Distribution Width 15.7 % (11.6-14.8) Platelet Count 115 K/UL (150-450) Mean Platelet Volume 6.1 FL (6.5-10.1) Neutrophils (%) (Auto) 81.9 % (45.0-75.0) Lymphocytes (%) (Auto) 10.1 % (20.0-45.0) Monocytes (%) (Auto) 6.6 % (1.0-10.0) Eosinophils (%) (Auto) 0.7 % (0.0-3.0) Basophils (%) (Auto) 0.8 % (0.0-2.0) Sodium Level 143 MMOL/L (136-145) Potassium Level 4.9 MMOL/L (3.5-5.1) Chloride Level 108 MMOL/L (98-107) Carbon Dioxide Level 25 MMOL/L (21-32) Anion Gap 10 mmol/L (5-15) Blood Urea Nitrogen 32 mg/dL (7-18) Creatinine 7.2 MG/DL (0.55-1.30) Estimat Glomerular Filtration Rate 9.2 mL/min (>60) Glucose Level 142 MG/DL (74-106) Calcium Level 8.6 MG/DL (8.5-10.1) Phosphorus Level 3.5 MG/DL (2.5-4.9) Magnesium Level 1.9 MG/DL (1.8-2.4) Total Bilirubin 0.8 MG/DL (0.2-1.0) Direct Bilirubin 0.2 MG/DL (0.0-0.3) Aspartate Amino Transf (AST/SGOT) 26 U/L (15-37) Alanine Aminotransferase (ALT/SGPT) 8 U/L (12-78) Alkaline Phosphatase 192 U/L (46-116) Total Protein 6.6 G/DL (6.4-8.2) Albumin 1.7 G/DL (3.4-5.0) Height (Feet): 5 Height (Inches): 10.00 Weight (Pounds): 187 Objective PHYSICAL EXAMINATION: VITAL SIGNS: Show blood pressure of 126/80, pulse was as high as 126, respirations 18, and temperature is 97. HEAD AND NECK: Showed no JVD. LUNGS: Decreased breath sounds. CARDIOVASCULAR: Shows irregular irregular S1 and S2 with no gallop or murmur. The dialysis access is in the left chest. ABDOMEN: Soft. EXTREMITIES: A 1+ pitting edema. Left 4th toe gangrene in dressing Kendell Fitzgerald MD Jun 03, 2019 11:30
[2019-06-03 12:00] VITALS: BP 136/80
--- NOTE | 2019-06-03 12:47 | Nephrology Progress Note ---
Assessment/Plan Problem List: (1) ESRF (end stage renal failure) (2) Cardiomyopathy Assessment: 40% Ej Fx (3) COPD (chronic obstructive pulmonary disease) (4) Anemia (5) Acute metabolic encephalopathy Assessment presents with SOB: CHF vs COPD Exacerbation ESRD CHF with previous Echo showing Ej Fx 40 % h/o At fib DM HTN Anemia COPD recent ear infection Plan HD next Optimize cardiac condition BP and BS check and control Discussed with Dr Chucky Hayes and Dig adjust mind altering meds per PMD per orders Subjective ROS Limited/Unobtainable: No Constitutional: Reports: malaise Objective Objective Last 24 Hour Vital Signs Date Time Temp Pulse Resp B/P (MAP) Pulse Ox O2 Delivery O2 Flow Rate FiO2 06/03/19 12:00 98.8 101 20 136/80 (98) 98 06/03/19 09:00 Nasal Cannula 2.0 06/03/19 08:41 99 125/72 06/03/19 08:40 125/72 06/03/19 08:40 125/72 06/03/19 08:07 95 Nasal Cannula 2.0 28 06/03/19 08:00 98.6 99 19 125/72 (89) 97 06/03/19 04:00 98.3 113 20 129/69 (89) 96 06/03/19 00:00 98.1 99 18 104/57 (73) 96 06/02/19 21:00 Nasal Cannula 2.0 06/02/19 21:00 103 99/59 06/02/19 20:00 98.3 103 20 99/59 (72) 96 06/02/19 19:22 97 Nasal Cannula 2.0 28 06/02/19 16:00 98.4 79 18 140/80 (100) 98 Intake and Output 06/02/19 06/03/19 19:00 07:00 Intake Total 640 ml Balance 640 ml Intake Oral 640 ml # Voids 2 1 # Bowel Movements 1 Laboratory Tests 06/02/19 15:23: Thrombin Time [Pending] 06/03/19 05:30: White Blood Count 14.4H, Red Blood Count 3.32L, Hemoglobin 9.7L, Hematocrit 31.8L, Mean Corpuscular Volume 96, Mean Corpuscular Hemoglobin 29.2, Mean Corpuscular Hemoglobin Concent 30.4L, Red Cell Distribution Width 15.7H, Platelet Count 115L, Mean Platelet Volume 6.1L, Neutrophils (%) (Auto) 81.9H, Lymphocytes (%) (Auto) 10.1L, Monocytes (%) (Auto) 6.6, Eosinophils (%) (Auto) 0.7, Basophils (%) (Auto) 0.8, Sodium Level 143, Potassium Level 4.9, Chloride Level 108H, Carbon Dioxide Level 25, Anion Gap 10, Blood Urea Nitrogen 32H, Creatinine 7.2H, Estimat Glomerular Filtration Rate 9.2, Glucose Level 142H, Calcium Level 8.6, Phosphorus Level 3.5, Magnesium Level 1.9, Total Bilirubin 0.8, Direct Bilirubin 0.2, Aspartate Amino Transf (AST/SGOT) 26, Alanine Aminotransferase (ALT/SGPT) 8L, Alkaline Phosphatase 192H, Total Protein 6.6, Albumin 1.7L Height (Feet): 5 Height (Inches): 10.00 Weight (Pounds): 187 General Appearance: no apparent distress Objective no change Francisco Javier Abraham MD Jun 03, 2019 12:47
[2019-06-03] MEDS ORDERED: LIPITOR20 MG ORAL (13:17)
[2019-06-03] MEDS ORDERED: ZESTRIL10 M1 ORAL (13:17)
[2019-06-03] MEDS ORDERED: COREG25 MG ORAL (13:17)
[2019-06-03] MEDS ORDERED: ISOSORBIDE MONO30 M1 ORAL (13:17)
[2019-06-03] MEDS ORDERED: RENVELA800 MG ORAL (13:17)
[2019-06-03] MEDS ORDERED: COLACE100 MG ORAL (13:17)
[2019-06-03] MEDS ORDERED: PANTOPRAZOLE SO40 MG ORAL (13:17)
[2019-06-03] MEDS ORDERED: ZOLOFT50 MG ORAL (13:17)
[2019-06-03] MEDS ORDERED: Vanco pharmacy to dose MISC (13:17)
[2019-06-03] MEDS ORDERED: NEPHROVITE1 TAB ORAL (13:17)
[2019-06-03] MEDS ORDERED: ABILIFY15 MG ORAL (13:17)
--- NOTE | 2019-06-03 13:46 | Surgery Progress Note ---
Surgery Progress Note Subjective Additional Comments no acute events exam unchanged labs stable. Objective Last 24 Hour Vital Signs Date Time Temp Pulse Resp B/P (MAP) Pulse Ox O2 Delivery O2 Flow Rate FiO2 06/03/19 12:00 98.8 101 20 136/80 (98) 98 06/03/19 09:00 Nasal Cannula 2.0 06/03/19 08:41 99 125/72 06/03/19 08:40 125/72 06/03/19 08:40 125/72 06/03/19 08:07 95 Nasal Cannula 2.0 28 06/03/19 08:00 98.6 99 19 125/72 (89) 97 06/03/19 04:00 98.3 113 20 129/69 (89) 96 06/03/19 00:00 98.1 99 18 104/57 (73) 96 06/02/19 21:00 Nasal Cannula 2.0 06/02/19 21:00 103 99/59 06/02/19 20:00 98.3 103 20 99/59 (72) 96 06/02/19 19:22 97 Nasal Cannula 2.0 28 06/02/19 16:00 98.4 79 18 140/80 (100) 98 I&O Intake and Output 06/02/19 06/03/19 19:00 07:00 Intake Total 640 ml Balance 640 ml Intake Oral 640 ml # Voids 2 1 # Bowel Movements 1 Dressing: dry Wound: other Drains: other Cardiovascular: RSR Respiratory: decreased breath sounds Abdomen: soft, present bowel sounds, non-distended Extremities: cyanosis, no tenderness Laboratory Tests Test 06/02/19 15:23 06/03/19 05:30 Thrombin Time Pending White Blood Count 14.4 K/UL (4.8-10.8) H Red Blood Count 3.32 M/UL (4.70-6.10) L Hemoglobin 9.7 G/DL (14.2-18.0) L Hematocrit 31.8 % (42.0-52.0) L Mean Corpuscular Volume 96 FL (80-99) Mean Corpuscular Hemoglobin 29.2 PG (27.0-31.0) Mean Corpuscular Hemoglobin Concent 30.4 G/DL (32.0-36.0) L Red Cell Distribution Width 15.7 % (11.6-14.8) H Platelet Count 115 K/UL (150-450) L Mean Platelet Volume 6.1 FL (6.5-10.1) L Neutrophils (%) (Auto) 81.9 % (45.0-75.0) H Lymphocytes (%) (Auto) 10.1 % (20.0-45.0) L Monocytes (%) (Auto) 6.6 % (1.0-10.0) Eosinophils (%) (Auto) 0.7 % (0.0-3.0) Basophils (%) (Auto) 0.8 % (0.0-2.0) Sodium Level 143 MMOL/L (136-145) Potassium Level 4.9 MMOL/L (3.5-5.1) Chloride Level 108 MMOL/L (98-107) H Carbon Dioxide Level 25 MMOL/L (21-32) Anion Gap 10 mmol/L (5-15) Blood Urea Nitrogen 32 mg/dL (7-18) H Creatinine 7.2 MG/DL (0.55-1.30) H Estimat Glomerular Filtration Rate 9.2 mL/min (>60) Glucose Level 142 MG/DL (74-106) H Calcium Level 8.6 MG/DL (8.5-10.1) Phosphorus Level 3.5 MG/DL (2.5-4.9) Magnesium Level 1.9 MG/DL (1.8-2.4) Total Bilirubin 0.8 MG/DL (0.2-1.0) Direct Bilirubin 0.2 MG/DL (0.0-0.3) Aspartate Amino Transf (AST/SGOT) 26 U/L (15-37) Alanine Aminotransferase (ALT/SGPT) 8 U/L (12-78) L Alkaline Phosphatase 192 U/L (46-116) H Total Protein 6.6 G/DL (6.4-8.2) Albumin 1.7 G/DL (3.4-5.0) L Plan Problems: (1) Gangrene of toe Assessment & Plan: Patient with two partial thickness pressure injuries sacral cleft (proximal)(L)0.4cm x (W)0.3cm. Base of wound moist and viable Non- blanching erythema without induration periwound. (distal at perianal ) (L)1.7cm x (W)0.5cm. Base of wound moist and viable. Borders macerated. Non-Blanching erythema without induration periwound. Non-blanching erythema with fluctuance noted to L heel . Non-blanching erythema with fluctuance noted to R heel. L 4th metatarsal is necrotic but dry . appreciate podiatry input plan for amputation after vascular and medical clearance INR elevated will monitor appreciate vascular input 1. Medical optimization in progress. We will complete his noninvasive imaging with duplex and CT angiography of the aorta and lower extremity to delineate his vasculopathy. Should also have bilateral arm vein mapping and duplex. 2. The patient will strongly benefit from selective left leg angiography to assess for percutaneous revascularization prior to left fourth toe gangrene amputation by Podiatry service. 3. As for more permanent hemodialysis access, the patient will require bilateral upper arm venogram to assess the vein and central veins prior to new arm AV shunt placement. Recommendations: Necrotic L 4th metatarsal. etiology potentially vascular vs trauma. will order studies and work up. Apply Moisture Barrier Paste to Buttocks. Cover with Optifoam drsg . Change every 3 days and prn. Apply Cavilon Skin Barrier to both heels. Cover each heel with Optifoam drsg.Change every 7 days and PRN. Apply Betadine to L 4th metatarsal daily. Reposition at least every 2 hours or as tolerated. Off-load heels with pillow. Pt awaiting transfer to [facility] for possible re-vasc procedure and then further amp of L 4th toe. Killian Doyle Jun 03, 2019 13:46
--- NOTE | 2019-06-03 14:39 | Infectious Diseases Prog Note ---
Assessment/Plan Assessment/Plan Full consult dictated A) 1) enterococcus uti 2) new onset leukocytosis, ? sepsis, ams 3) left foot 4 toe gangrene - ? source of leukocytosis P) 1) vancomycin, add meropenem 2) reculture, monitor labs, check chest x-ray 3) plan on revascularization then amputation 4) d/w Dr. Locke Subjective Allergies: Coded Allergies: No Known Allergies (Verified , 07/21/11) Objective Vital Signs Last 24 Hour Vital Signs Date Time Temp Pulse Resp B/P (MAP) Pulse Ox O2 Delivery O2 Flow Rate FiO2 06/03/19 12:00 98.8 101 20 136/80 (98) 98 06/03/19 09:00 Nasal Cannula 2.0 06/03/19 08:41 99 125/72 06/03/19 08:40 125/72 06/03/19 08:40 125/72 06/03/19 08:07 95 Nasal Cannula 2.0 28 06/03/19 08:00 98.6 99 19 125/72 (89) 97 06/03/19 04:00 98.3 113 20 129/69 (89) 96 06/03/19 00:00 98.1 99 18 104/57 (73) 96 06/02/19 21:00 Nasal Cannula 2.0 06/02/19 21:00 103 99/59 06/02/19 20:00 98.3 103 20 99/59 (72) 96 06/02/19 19:22 97 Nasal Cannula 2.0 28 06/02/19 16:00 98.4 79 18 140/80 (100) 98 Height (Feet): 5 Height (Inches): 10.00 Weight (Pounds): 187 Laboratory Tests Test 06/02/19 15:23 06/03/19 05:30 Thrombin Time Pending White Blood Count 14.4 K/UL (4.8-10.8) H Red Blood Count 3.32 M/UL (4.70-6.10) L Hemoglobin 9.7 G/DL (14.2-18.0) L Hematocrit 31.8 % (42.0-52.0) L Mean Corpuscular Volume 96 FL (80-99) Mean Corpuscular Hemoglobin 29.2 PG (27.0-31.0) Mean Corpuscular Hemoglobin Concent 30.4 G/DL (32.0-36.0) L Red Cell Distribution Width 15.7 % (11.6-14.8) H Platelet Count 115 K/UL (150-450) L Mean Platelet Volume 6.1 FL (6.5-10.1) L Neutrophils (%) (Auto) 81.9 % (45.0-75.0) H Lymphocytes (%) (Auto) 10.1 % (20.0-45.0) L Monocytes (%) (Auto) 6.6 % (1.0-10.0) Eosinophils (%) (Auto) 0.7 % (0.0-3.0) Basophils (%) (Auto) 0.8 % (0.0-2.0) Sodium Level 143 MMOL/L (136-145) Potassium Level 4.9 MMOL/L (3.5-5.1) Chloride Level 108 MMOL/L (98-107) H Carbon Dioxide Level 25 MMOL/L (21-32) Anion Gap 10 mmol/L (5-15) Blood Urea Nitrogen 32 mg/dL (7-18) H Creatinine 7.2 MG/DL (0.55-1.30) H Estimat Glomerular Filtration Rate 9.2 mL/min (>60) Glucose Level 142 MG/DL (74-106) H Calcium Level 8.6 MG/DL (8.5-10.1) Phosphorus Level 3.5 MG/DL (2.5-4.9) Magnesium Level 1.9 MG/DL (1.8-2.4) Total Bilirubin 0.8 MG/DL (0.2-1.0) Direct Bilirubin 0.2 MG/DL (0.0-0.3) Aspartate Amino Transf (AST/SGOT) 26 U/L (15-37) Alanine Aminotransferase (ALT/SGPT) 8 U/L (12-78) L Alkaline Phosphatase 192 U/L (46-116) H Total Protein 6.6 G/DL (6.4-8.2) Albumin 1.7 G/DL (3.4-5.0) L Current Medications Medications (Trade) Dose Ordered Sig/Divya Route PRN Reason Start Time Stop Time Status Last Admin Dose Admin Acetaminophen (Tylenol) 650 mg Q4H PRN ORAL Mild Pain (Pain Scale 1-3) 05/28/19 18:45 06/27/19 18:44 Acetaminophen (Tylenol) 650 mg Q4H PRN ORAL fever (temp>100.5F) 05/28/19 18:45 06/22/19 18:44 Acetaminophen/ Hydrocodone Bitart ([place] 10/325) 1 tab Q6H PRN ORAL For Pain 4-10 06/02/19 21:15 06/09/19 21:14 Aripiprazole (Abilify) 15 mg DAILY ORAL 05/29/19 09:00 06/23/19 08:59 06/03/19 08:41 Atorvastatin Calcium (Lipitor) 40 mg QHS ORAL 05/28/19 21:00 06/23/19 08:59 06/01/19 20:40 Carvedilol (Coreg) 25 mg EVERY 12 HOURS ORAL 06/01/19 21:00 06/23/19 20:59 06/03/19 08:41 Dextrose (Dextrose 50%) 25 ml Q30M PRN IV Hypoglycemia 05/28/19 18:45 06/22/19 18:14 Dextrose (Dextrose 50%) 50 ml Q30M PRN IV Hypoglycemia 05/28/19 18:45 06/22/19 18:14 Diphenhydramine HCl (Benadryl) 25 mg Q6H PRN ORAL Itching/Pruritis 05/28/19 18:45 06/27/19 18:44 05/30/19 01:58 Docusate Sodium (Colace) 100 mg THREE TIMES A DAY ORAL 05/29/19 09:00 06/23/19 12:59 06/03/19 13:27 Isosorbide Mononitrate (Imdur) 60 mg DAILY ORAL 05/29/19 09:00 06/23/19 08:59 06/03/19 08:40 Lisinopril (Zestril) 10 mg DAILY ORAL 06/02/19 09:00 06/23/19 08:59 06/03/19 08:40 Meropenem 500 mg/ Sodium Chloride 50 ml @ 100 mls/hr Q24HRS IVPB 06/03/19 15:00 06/08/19 14:59 Metoclopramide HCl (Reglan) 10 mg Q6H PRN IVP Nausea & Vomiting 05/28/19 18:45 06/27/19 18:44 Ondansetron HCl (Zofran) 4 mg Q6H PRN IVP Nausea & Vomiting 05/28/19 18:45 06/27/19 18:44 Pantoprazole (Protonix) 40 mg EVERY 12 HOURS ORAL 05/28/19 21:00 06/23/19 20:59 06/03/19 08:41 Phytonadione 10 mg/Dextrose 56 ml @ 112 mls/hr ONCE IVPB 06/03/19 15:00 06/03/19 17:00 Prochlorperazine (Compazine) 10 mg Q6H PRN IVP Nausea & Vomiting 05/28/19 18:45 06/27/19 18:44 Quetiapine Fumarate (SEROquel) 12.5 mg Q8H PRN ORAL aggitation 05/31/19 09:00 06/30/19 08:59 05/31/19 15:40 Sertraline HCl (Zoloft) 50 mg DAILY ORAL 05/29/19 09:00 06/23/19 08:59 06/03/19 08:41 Sevelamer Carbonate (Renvela) 1,600 mg THREE TIMES A DAY ORAL 05/29/19 09:00 06/23/19 08:59 06/03/19 13:28 Vancomycin HCl (Vanco rx to dose) 1 ea DAILY PRN MISC Per rx protocol 05/28/19 18:45 06/27/19 18:44 Vitamin B Complex/ Vit C/Folic Acid (Nephrovite) 1 tab DAILY ORAL 05/29/19 09:00 06/23/19 08:59 06/03/19 08:41 Ilya Thornton MD Jun 03, 2019 14:39
[2019-06-03] MEDS ORDERED: Vitamin K 10mg in D5W 55ml IVPB SCH (15:00)
--- NOTE | 2019-06-03 15:34 | Cardiac Electrophysiology PN ---
Assessment/Plan Assessment/Plan 1. Wide complex tachycardia, likely due to atrial fibrillation with rapid ventricular response and aberrant conduction. EF of 40 to 45 percent. 2. Atrial fibrillation with rapid ventricular response.On Coreg 12.5 mg bid and digoxin 0.125 mg daily. On Coumadin per pharmacy. 3. Hypertension. Stable. 4. Congestive heart failure with EF of 40 to 45 percent, could be due to tachy induced myopathy. On Dig, Coreg, Lisinopril, isordil and HD 5. COPD. 6. Enterococcus UTI. On antibiotics per Dr Arroyo 7. End-stage renal disease, on hemodialysis. 8. PVD with Ischemic left fourth toe dry gangrene with calcific multilevel arterial occlusive disease and absent popliteal and pedal pulses. Awaiting transfer to [facility] for selective left leg angiography to assess for percutaneous revascularization prior to left fourth toe gangrene amputation by Podiatry service per Dr Doherty 9. Thrombosed right arm AV shunt, currently on dialysis through chest Perma- catheter SIN RN andn Dr Arroyo Subjective Subjective No events. On Abx . Awaiting transfer to [facility] for vascular procedure. Objective Last 24 Hour Vital Signs Date Time Temp Pulse Resp B/P (MAP) Pulse Ox O2 Delivery O2 Flow Rate FiO2 06/03/19 12:00 98.8 101 20 136/80 (98) 98 06/03/19 09:00 Nasal Cannula 2.0 06/03/19 08:41 99 125/72 06/03/19 08:40 125/72 06/03/19 08:40 125/72 06/03/19 08:07 95 Nasal Cannula 2.0 28 06/03/19 08:00 98.6 99 19 125/72 (89) 97 06/03/19 04:00 98.3 113 20 129/69 (89) 96 06/03/19 00:00 98.1 99 18 104/57 (73) 96 06/02/19 21:00 Nasal Cannula 2.0 06/02/19 21:00 103 99/59 06/02/19 20:00 98.3 103 20 99/59 (72) 96 06/02/19 19:22 97 Nasal Cannula 2.0 28 06/02/19 16:00 98.4 79 18 140/80 (100) 98 Intake and Output 06/02/19 06/03/19 19:00 07:00 Intake Total 640 ml Balance 640 ml Intake Oral 640 ml # Voids 2 1 # Bowel Movements 1 Laboratory Tests Test 06/03/19 05:30 White Blood Count 14.4 K/UL (4.8-10.8) H Red Blood Count 3.32 M/UL (4.70-6.10) L Hemoglobin 9.7 G/DL (14.2-18.0) L Hematocrit 31.8 % (42.0-52.0) L Mean Corpuscular Volume 96 FL (80-99) Mean Corpuscular Hemoglobin 29.2 PG (27.0-31.0) Mean Corpuscular Hemoglobin Concent 30.4 G/DL (32.0-36.0) L Red Cell Distribution Width 15.7 % (11.6-14.8) H Platelet Count 115 K/UL (150-450) L Mean Platelet Volume 6.1 FL (6.5-10.1) L Neutrophils (%) (Auto) 81.9 % (45.0-75.0) H Lymphocytes (%) (Auto) 10.1 % (20.0-45.0) L Monocytes (%) (Auto) 6.6 % (1.0-10.0) Eosinophils (%) (Auto) 0.7 % (0.0-3.0) Basophils (%) (Auto) 0.8 % (0.0-2.0) Sodium Level 143 MMOL/L (136-145) Potassium Level 4.9 MMOL/L (3.5-5.1) Chloride Level 108 MMOL/L (98-107) H Carbon Dioxide Level 25 MMOL/L (21-32) Anion Gap 10 mmol/L (5-15) Blood Urea Nitrogen 32 mg/dL (7-18) H Creatinine 7.2 MG/DL (0.55-1.30) H Estimat Glomerular Filtration Rate 9.2 mL/min (>60) Glucose Level 142 MG/DL (74-106) H Calcium Level 8.6 MG/DL (8.5-10.1) Phosphorus Level 3.5 MG/DL (2.5-4.9) Magnesium Level 1.9 MG/DL (1.8-2.4) Total Bilirubin 0.8 MG/DL (0.2-1.0) Direct Bilirubin 0.2 MG/DL (0.0-0.3) Aspartate Amino Transf (AST/SGOT) 26 U/L (15-37) Alanine Aminotransferase (ALT/SGPT) 8 U/L (12-78) L Alkaline Phosphatase 192 U/L (46-116) H Total Protein 6.6 G/DL (6.4-8.2) Albumin 1.7 G/DL (3.4-5.0) L Objective HEAD AND NECK: No JVD. LUNGS: Decreased breath sounds. CARDIOVASCULAR: Shows irregular irregular S1 and S2 with no gallop or murmur. The dialysis access is in the left chest. ABDOMEN: Soft. EXTREMITIES: 1+ pitting edema. Bandar Pina MD Jun 03, 2019 15:34
--- NOTE | 2019-06-03 15:54 | NUR ---
DISCHARGE DISPOSITION: PLEASE READ PATIENT TO BE DISCHARGED TO [facility] [address] T: [phone]>> CALL FOR REPORT ROOM [address] [place] ON WILL CALL FOR SENIOR CLINICAL DATA ANALYST AFTER HD JAIL VM LEFT FOR ZIYAD VIGIL [phone]
[2019-06-03 16:00] VITALS: BP_SYST 128; BP_SYST 91; BP_DIAS 55; BP_DIAS 79
--- NOTE | 2019-06-03 16:17 | General Progress Note ---
Assessment/Plan Status: stable Assessment/Plan: Assessment - CVA / AMS / Delirium - compromised swallow - elevated INR - resolved - COPD - CHF, reduced EF Recommendations - Family agreed to PEG - PEG placement am if OK with consultants - aspiration precautions - Elevate HOB Subjective Allergies: Coded Allergies: No Known Allergies (Verified , 07/21/11) Subjective above noted confused INR noted d/w heme re PEG placement Scheduled for tomorrow am Objective Last 24 Hour Vital Signs Date Time Temp Pulse Resp B/P (MAP) Pulse Ox O2 Delivery O2 Flow Rate FiO2 06/03/19 12:00 98.8 101 20 136/80 (98) 98 06/03/19 09:00 Nasal Cannula 2.0 06/03/19 08:41 99 125/72 06/03/19 08:40 125/72 06/03/19 08:40 125/72 06/03/19 08:07 95 Nasal Cannula 2.0 28 06/03/19 08:00 98.6 99 19 125/72 (89) 97 06/03/19 04:00 98.3 113 20 129/69 (89) 96 06/03/19 00:00 98.1 99 18 104/57 (73) 96 06/02/19 21:00 Nasal Cannula 2.0 06/02/19 21:00 103 99/59 06/02/19 20:00 98.3 103 20 99/59 (72) 96 06/02/19 19:22 97 Nasal Cannula 2.0 28 Intake and Output 06/02/19 06/03/19 19:00 07:00 Intake Total 640 ml Balance 640 ml Intake Oral 640 ml # Voids 2 1 # Bowel Movements 1 Laboratory Tests 06/03/19 05:30: White Blood Count 14.4H, Red Blood Count 3.32L, Hemoglobin 9.7L, Hematocrit 31.8L, Mean Corpuscular Volume 96, Mean Corpuscular Hemoglobin 29.2, Mean Corpuscular Hemoglobin Concent 30.4L, Red Cell Distribution Width 15.7H, Platelet Count 115L, Mean Platelet Volume 6.1L, Neutrophils (%) (Auto) 81.9H, Lymphocytes (%) (Auto) 10.1L, Monocytes (%) (Auto) 6.6, Eosinophils (%) (Auto) 0.7, Basophils (%) (Auto) 0.8, Sodium Level 143, Potassium Level 4.9, Chloride Level 108H, Carbon Dioxide Level 25, Anion Gap 10, Blood Urea Nitrogen 32H, Creatinine 7.2H, Estimat Glomerular Filtration Rate 9.2, Glucose Level 142H, Calcium Level 8.6, Phosphorus Level 3.5, Magnesium Level 1.9, Total Bilirubin 0.8, Direct Bilirubin 0.2, Aspartate Amino Transf (AST/SGOT) 26, Alanine Aminotransferase (ALT/SGPT) 8L, Alkaline Phosphatase 192H, Total Protein 6.6, Albumin 1.7L Height (Feet): 5 Height (Inches): 10.00 Weight (Pounds): 187 Objective WDWn obese AA man NCAT supple CTA RRR abd soft no edema Lara La MD Jun 03, 2019 16:17
[2019-06-03 17:00] LABS: BASOPHILS % (AUTO) 0.9 % (0.0-2.0); EOSINOPHILS % (AUTO) 0.7 % (0.0-3.0); HEMATOCRIT 27.3 % (42.0-52.0); HEMOGLOBIN 8.8 G/DL (14.2-18.0); LYMPHOCYTES % (AUTO) 11.6 % (20.0-45.0); MEAN CORPUSCULAR VOLUME 91 FL (80-99); MONOCYTES % (AUTO) 5.5 % (1.0-10.0); NEUTROPHILS % (AUTO) 81.4 % (45.0-75.0); PLATELET COUNT 169 K/UL (150-450); RED BLOOD COUNT 3.01 M/UL (4.70-6.10); RED CELL DISTRIBUTION WIDTH 14.8 % (11.6-14.8); WHITE BLOOD COUNT 14.3 K/UL (4.8-10.8)
[2019-06-03 17:11] LABS: ALANINE AMINOTRANSFERASE 6 U/L (12-78); ALBUMIN 1.7 G/DL (3.4-5.0); ALBUMIN/GLOBULIN RATIO 0.4 (1.0-2.7); ALKALINE PHOSPHATASE 184 U/L (46-116); ANION GAP 11 mmol/L (5-15); ASPARTATE AMINO TRANSFERASE 16 U/L (15-37); BILIRUBIN,TOTAL 0.7 MG/DL (0.2-1.0); BLOOD UREA NITROGEN 37 mg/dL (7-18); CALCIUM 8.6 MG/DL (8.5-10.1); CARBON DIOXIDE 23 MMOL/L (21-32); CHLORIDE 106 MMOL/L (98-107); CREATININE 7.8 MG/DL (0.55-1.30); POTASSIUM 4.3 MMOL/L (3.5-5.1); SODIUM 140 MMOL/L (136-145)
--- NOTE | 2019-06-03 18:06 | Pulmonology Progress Note ---
Assessment/Plan Assessment/Plan Pulmonary Progress Note HPI Patient is a 69-year-old male with a history of Alzheimers Dementia, COPD, CHF with EF 25%, Hypertension, Pacemaker, CKD on HD, Previous CVA, chronic weakness , Diabetes, AO x1, presents with acute dyspnea, patient was at the convalescent house not taking his oxygen, he is oxygen dependent, has a history of COPD, he was hypoxic down to the low 80s, history is limited secondary to patient's dementia. Noted to have UTI, CXR pulm congestion, elevated NPA, V/Q negative, has coagulopathy associated with coumadin now improving. 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 Stable overnight, less SOB Allergies: No Known Allergies Past Medical History: Alzheimers Dementia, COPD, Hypertension, CHF with EF 25% , Pacemaker, CKD on HD, Previous CVA, chronic weakness, Diabetes All Other Systems: limited Physical Exam Vital Signs Noted General Appearance: no apparent distress, alert Head: normocephalic, atraumatic Eyes: bilateral eye PERRL, bilateral eye EOMI ENT: uvula midline, moist mucus membranes Neck: supple, thyroid normal, supple/symmetrical/no masses Respiratory: lungs clear, no respiratory distress, no retraction, no accessory muscle use, other - on non rebreather Cardiovascular: normal HS, normal peripheral pulses, no gallop, no murmur, tachycardia, irregular Gastrointestinal: non tender, soft, no guarding, no rebound Musculoskeletal: normal inspection Neurologic: awake, oriented x1, responsive Skin: no rash, warm/dry, no edema Impression: Dyspnea CHF with EF 25% HTN COPD Hypoxia - VQ negative for PE UTI (lower urinary tract infection) Alzheimer Dementia Plan - O2 PRN - HHN - HD per renal - IV Antibiotics for UTI - Monitor labs - PPX Laboratory Tests Noted EKG: Atrial fibrillation, rate 110, QTc 544, no acute ST elevations, normal axis Chest X-Ray: Decreased interstitial congestion, since prior study of 05/27/2019 Decreased left pleural effusion Subjective ROS Limited/Unobtainable: No Allergies: Coded Allergies: No Known Allergies (Verified , 07/21/11) Objective Last 24 Hour Vital Signs Date Time Temp Pulse Resp B/P (MAP) Pulse Ox O2 Delivery O2 Flow Rate FiO2 06/03/19 16:00 98.6 98 20 128/79 (95) 98 06/03/19 12:00 98.8 101 20 136/80 (98) 98 06/03/19 09:00 Nasal Cannula 2.0 06/03/19 08:41 99 125/72 06/03/19 08:40 125/72 06/03/19 08:40 125/72 06/03/19 08:07 95 Nasal Cannula 2.0 28 06/03/19 08:00 98.6 99 19 125/72 (89) 97 06/03/19 04:00 98.3 113 20 129/69 (89) 96 06/03/19 00:00 98.1 99 18 104/57 (73) 96 06/02/19 21:00 Nasal Cannula 2.0 06/02/19 21:00 103 99/59 06/02/19 20:00 98.3 103 20 99/59 (72) 96 06/02/19 19:22 97 Nasal Cannula 2.0 28 Intake and Output 06/02/19 06/03/19 19:00 07:00 Intake Total 640 ml Balance 640 ml Intake Oral 640 ml # Voids 2 1 # Bowel Movements 1 Laboratory Tests 06/03/19 05:30: White Blood Count 14.4H, Red Blood Count 3.32L, Hemoglobin 9.7L, Hematocrit 31.8L, Mean Corpuscular Volume 96, Mean Corpuscular Hemoglobin 29.2, Mean Corpuscular Hemoglobin Concent 30.4L, Red Cell Distribution Width 15.7H, Platelet Count 115L, Mean Platelet Volume 6.1L, Neutrophils (%) (Auto) 81.9H, Lymphocytes (%) (Auto) 10.1L, Monocytes (%) (Auto) 6.6, Eosinophils (%) (Auto) 0.7, Basophils (%) (Auto) 0.8, Sodium Level 143, Potassium Level 4.9, Chloride Level 108H, Carbon Dioxide Level 25, Anion Gap 10, Blood Urea Nitrogen 32H, Creatinine 7.2H, Estimat Glomerular Filtration Rate 9.2, Glucose Level 142H, Calcium Level 8.6, Phosphorus Level 3.5, Magnesium Level 1.9, Total Bilirubin 0.8, Direct Bilirubin 0.2, Aspartate Amino Transf (AST/SGOT) 26, Alanine Aminotransferase (ALT/SGPT) 8L, Alkaline Phosphatase 192H, Total Protein 6.6, Albumin 1.7L 06/03/19 16:20: White Blood Count 14.3H, Red Blood Count 3.01L, Hemoglobin 8.8L, Hematocrit 27.3L, Mean Corpuscular Volume 91, Mean Corpuscular Hemoglobin 29.2, Mean Corpuscular Hemoglobin Concent 32.2, Red Cell Distribution Width 14.8, Platelet Count 169, Mean Platelet Volume 6.2L, Neutrophils (%) (Auto) 81.4H, Lymphocytes (%) (Auto) 11.6L, Monocytes (%) (Auto) 5.5, Eosinophils (%) (Auto) 0.7, Basophils (%) (Auto) 0.9, Sodium Level 140, Potassium Level 4.3, Chloride Level 106, Carbon Dioxide Level 23, Anion Gap 11, Blood Urea Nitrogen 37H, Creatinine 7.8H, Estimat Glomerular Filtration Rate 8.4, Glucose Level 155H, Calcium Level 8.6, Total Bilirubin 0.7, Aspartate Amino Transf (AST/SGOT) 16, Alanine Aminotransferase (ALT/SGPT) 6L, Alkaline Phosphatase 184H, Total Protein 6.4, Albumin 1.7L, Globulin 4.7, Albumin/Globulin Ratio 0.4L Current Medications Medications (Trade) Dose Ordered Sig/Divya Route PRN Reason Start Time Stop Time Status Last Admin Dose Admin Acetaminophen (Tylenol) 650 mg Q4H PRN ORAL Mild Pain (Pain Scale 1-3) 05/28/19 18:45 06/27/19 18:44 Acetaminophen (Tylenol) 650 mg Q4H PRN ORAL fever (temp>100.5F) 05/28/19 18:45 06/22/19 18:44 Acetaminophen/ Hydrocodone Bitart ([place] 10/325) 1 tab Q6H PRN ORAL For Pain 4-10 06/02/19 21:15 06/09/19 21:14 Aripiprazole (Abilify) 15 mg DAILY ORAL 05/29/19 09:00 06/23/19 08:59 06/03/19 08:41 Atorvastatin Calcium (Lipitor) 40 mg QHS ORAL 05/28/19 21:00 06/23/19 08:59 06/01/19 20:40 Carvedilol (Coreg) 25 mg EVERY 12 HOURS ORAL 06/01/19 21:00 06/23/19 20:59 06/03/19 08:41 Dextrose (Dextrose 50%) 25 ml Q30M PRN IV Hypoglycemia 05/28/19 18:45 06/22/19 18:14 Dextrose (Dextrose 50%) 50 ml Q30M PRN IV Hypoglycemia 05/28/19 18:45 06/22/19 18:14 Diphenhydramine HCl (Benadryl) 25 mg Q6H PRN ORAL Itching/Pruritis 05/28/19 18:45 06/27/19 18:44 05/30/19 01:58 Docusate Sodium (Colace) 100 mg THREE TIMES A DAY ORAL 05/29/19 09:00 06/23/19 12:59 06/03/19 13:27 Isosorbide Mononitrate (Imdur) 60 mg DAILY ORAL 05/29/19 09:00 06/23/19 08:59 06/03/19 08:40 Lisinopril (Zestril) 10 mg DAILY ORAL 06/02/19 09:00 06/23/19 08:59 06/03/19 08:40 Meropenem 500 mg/ Sodium Chloride 50 ml @ 100 mls/hr Q24HRS IVPB 06/03/19 15:00 06/08/19 14:59 06/03/19 15:05 Metoclopramide HCl (Reglan) 10 mg Q6H PRN IVP Nausea & Vomiting 05/28/19 18:45 06/27/19 18:44 Ondansetron HCl (Zofran) 4 mg Q6H PRN IVP Nausea & Vomiting 05/28/19 18:45 06/27/19 18:44 Pantoprazole (Protonix) 40 mg EVERY 12 HOURS ORAL 05/28/19 21:00 06/23/19 20:59 06/03/19 08:41 Prochlorperazine (Compazine) 10 mg Q6H PRN IVP Nausea & Vomiting 05/28/19 18:45 06/27/19 18:44 Quetiapine Fumarate (SEROquel) 12.5 mg Q8H PRN ORAL aggitation 05/31/19 09:00 06/30/19 08:59 05/31/19 15:40 Sertraline HCl (Zoloft) 50 mg DAILY ORAL 05/29/19 09:00 06/23/19 08:59 06/03/19 08:41 Sevelamer Carbonate (Renvela) 1,600 mg THREE TIMES A DAY ORAL 05/29/19 09:00 06/23/19 08:59 06/03/19 13:28 Vancomycin HCl (Vanco rx to dose) 1 ea DAILY PRN MISC Per rx protocol 05/28/19 18:45 06/27/19 18:44 Vitamin B Complex/ Vit C/Folic Acid (Nephrovite) 1 tab DAILY ORAL 05/29/19 09:00 06/23/19 08:59 06/03/19 08:41 Navneet Bond MD Jun 03, 2019 18:06
--- NOTE | 2019-06-03 19:10 | NUR ---
HAND-OFF: Report given to KALEIGH Culp.
--- NOTE | 2019-06-03 19:30 | NUR ---
NURSE NOTES: Patient in bed, no complaints of pain, on O2 at 2LPM. Cleaned patient, had moderate normal bowel movement. Call lights and needs in reach. Bed in lowest position, lock engaged and alarm on. Will continue to monitor.
--- NOTE | 2019-06-03 19:30 | Progress Note ---
DATE: 06/03/2019 SUBJECTIVE: The patient is having waxing and consciousness. Continues to be agitated and attempts to pull on the IV access. The patient continues to be in restraints. MENTAL STATUS EXAMINATION: The patient is alert, confused, disoriented. Mood is agitated. Affect is flat. Thought process is disorganized. Thought content, no suicidal or homicidal ideations. Cognition is impaired. Insight and judgment is impaired. ASSESSMENT: 1. Agitation. 2. Encephalopathy. PLAN: 1. We will continue low-dose of antipsychotics. 2. The patient continues to be in restraints. 3. Provide the patient with reality orientation. 4. Discussed the case with the nurse. Glenda Rene M.D. DR: KARLA JOB#: [id number] CC: [place]
--- NOTE | 2019-06-03 21:05 | NUR ---
NURSE NOTES: Patient was off restraints. [facility] staff transported patient back to SNF with his belongings. No IV access. Patient is stable.
--- NOTE | 2019-06-03 21:16 | General Progress Note ---
Assessment/Plan Status: stable Assessment/Plan: 69 year oldmalewith a PMH of a fib on AC, ESRD on HD, anemia, htn, DM, COPD, HFPEF presented for acute hypoxemic respiratory failure # elevated wbc 2/2 Left foot 4th metatarsal dry gangrene? , no other source yet identified - no diarrhea, fever, cough or sign on exam including any wounds, source may be left toe - ctm cbc in am - id consult, appreciate reqs - cont current abx: vanco - if diarrhea check cdiff # left 4th toe dry gangrene - appreciate consults belo - gsx - podiatry -vascular surgery - patient denied transfer to [facility] for angiogram and needs further medical optimization prior to angio #Toxic metabolic encephalopathy #Hospital delirium - non violent restraints - prn seroquel 12.5 for agitation - delirium precautions - psyche consult, appreciate reqs - neuro consult in am, appreciate reqs # UTI due to Enterococcus F - abx per ID as above # Acute Hypoxic Repiratory Failure likely 2/2 chf exacerbation- resolved - cardiac medications - echo with preserved EF 40-45 % - HD for fluid removal per Dr. Chen. HD 05/28, 05/30 and next 06/01 - RT - breathing treatments - Pulm Consult appreciated # Supratherapeutic INR - hold coumadin - vit k +/- FFP if patient bleeds -> 2.5mg vit po given 05/31 - daily INR needed - Pharmacy to dose. - heme consult, appreciate reqs f/u factors ordered - check actor VIII, PTT , PT, dic panel # Hyponatremia likely hypervolemic from chf - HD - CTM # ESRD - HD by Nephrology, Last HD 05/28 # Afib with episodes of WCT and AF with aberrancy, Dr. Stone consultation appreciated. Dr. Villegas covering this week. Digoxin was stopped and Carvedilol 25 mg BID - cont cardiac meds, management per cards - hold coumadin for now # Iron deficiency anemia - iron replacement # Dysphagia with aspiration risk - Discussed with ST - Dietary adjustment - Daily ST and adjustments as needed - GI consultation for PEG completed. Will proceed once INR is < 2, likely next week # Full Code # Dispo- SNF (prior resident) - Request PT and OT evaluation for mobility Extensive amount of time, >45 minutes spent in discussion of patients care and coordination and discussion with CM, staff at OSH, all specialists involved in case as above and administration. Subjective Date patient seen: Jun 03, 2019 ROS Limited/Unobtainable: Yes - medical condition Allergies: Coded Allergies: No Known Allergies (Verified , 07/21/11) Subjective uto Objective Last 24 Hour Vital Signs Date Time Temp Pulse Resp B/P (MAP) Pulse Ox O2 Delivery O2 Flow Rate FiO2 06/03/19 19:45 96 Nasal Cannula 2.0 28 06/03/19 16:00 98.6 98 20 128/79 (95) 98 06/03/19 12:00 98.8 101 20 136/80 (98) 98 06/03/19 09:00 Nasal Cannula 2.0 06/03/19 08:41 99 125/72 06/03/19 08:40 125/72 06/03/19 08:40 125/72 06/03/19 08:07 95 Nasal Cannula 2.0 28 06/03/19 08:00 98.6 99 19 125/72 (89) 97 06/03/19 04:00 98.3 113 20 129/69 (89) 96 06/03/19 00:00 98.1 99 18 104/57 (73) 96 Intake and Output 06/02/19 06/03/19 19:00 07:00 Intake Total 640 ml Balance 640 ml Intake Oral 640 ml # Voids 2 1 # Bowel Movements 1 Laboratory Tests 06/03/19 05:30: White Blood Count 14.4H, Red Blood Count 3.32L, Hemoglobin 9.7L, Hematocrit 31.8L, Mean Corpuscular Volume 96, Mean Corpuscular Hemoglobin 29.2, Mean Corpuscular Hemoglobin Concent 30.4L, Red Cell Distribution Width 15.7H, Platelet Count 115L, Mean Platelet Volume 6.1L, Neutrophils (%) (Auto) 81.9H, Lymphocytes (%) (Auto) 10.1L, Monocytes (%) (Auto) 6.6, Eosinophils (%) (Auto) 0.7, Basophils (%) (Auto) 0.8, Sodium Level 143, Potassium Level 4.9, Chloride Level 108H, Carbon Dioxide Level 25, Anion Gap 10, Blood Urea Nitrogen 32H, Creatinine 7.2H, Estimat Glomerular Filtration Rate 9.2, Glucose Level 142H, Calcium Level 8.6, Phosphorus Level 3.5, Magnesium Level 1.9, Total Bilirubin 0.8, Direct Bilirubin 0.2, Aspartate Amino Transf (AST/SGOT) 26, Alanine Aminotransferase (ALT/SGPT) 8L, Alkaline Phosphatase 192H, Total Protein 6.6, Albumin 1.7L 06/03/19 16:20: White Blood Count 14.3H, Red Blood Count 3.01L, Hemoglobin 8.8L, Hematocrit 27.3L, Mean Corpuscular Volume 91, Mean Corpuscular Hemoglobin 29.2, Mean Corpuscular Hemoglobin Concent 32.2, Red Cell Distribution Width 14.8, Platelet Count 169, Mean Platelet Volume 6.2L, Neutrophils (%) (Auto) 81.4H, Lymphocytes (%) (Auto) 11.6L, Monocytes (%) (Auto) 5.5, Eosinophils (%) (Auto) 0.7, Basophils (%) (Auto) 0.9, Sodium Level 140, Potassium Level 4.3, Chloride Level 106, Carbon Dioxide Level 23, Anion Gap 11, Blood Urea Nitrogen 37H, Creatinine 7.8H, Estimat Glomerular Filtration Rate 8.4, Glucose Level 155H, Calcium Level 8.6, Total Bilirubin 0.7, Aspartate Amino Transf (AST/SGOT) 16, Alanine Aminotransferase (ALT/SGPT) 6L, Alkaline Phosphatase 184H, Total Protein 6.4, Albumin 1.7L, Globulin 4.7, Albumin/Globulin Ratio 0.4L Height (Feet): 5 Height (Inches): 10.00 Weight (Pounds): 187 Objective gen: opens eyes, does not answer or follow commands cv: rrr,no m,r,g resp: ctab chest: left hd catheter with no surrounding erythema abd: soft non tender, no masses ext: left 4th digit gangrenous toe, no foul smell or active discharge, + tenderness Angie Locke DO Jun 03, 2019 21:16
--- NOTE | 2019-06-04 03:00 | Consultation ---
DATE OF CONSULTATION: 06/03/2019 INFECTIOUS DISEASES CONSULTATION CONSULTING PHYSICIAN: Ilya Thornton M.D. ATTENDING PHYSICIAN: Maurizio Haq M.D. REFERRING PHYSICIAN: Angie Locke M.D. REASON FOR CONSULTATION: Left foot fourth toe gangrene, possible sepsis, elevated white count, Enterococcus UTI. CHIEF COMPLAINT: The patient's chief complaint coming to the hospital is hypoxia. HISTORY OF PRESENT ILLNESS: This is a 69-year-old male who comes in to [facility] with hypoxia looks like initially. The patient has been here and has been noted to have a left foot fourth toe gangrene. The patient also was treated for Enterococcus UTI. The patient is colonized with MRSA. The patient was noted to have worsening leukocytosis yesterday as high as 14.1. Concern for the patient to be septic. Infectious Diseases consultation was requested. Blood cultures ordered yesterday. I saw the patient yesterday and continued the patient on vancomycin. I saw the patient today and noted to still have altered mental status, elevated white count, and there is odor in left foot fourth toe gangrene. It was initially described as dry, which is still likely is; however, there is some odor at this time and could be the source of sepsis. The patient to be placed on meropenem in addition to vancomycin. Await blood cultures. Case discussed with Dr. Locke. Plan is to revascularize the patient at [facility] and then amputate. MAR was noted. Orders were noted. Notes and record reviewed. REVIEW OF SYSTEMS: The patient has altered mental status, poor historian. He has a Lees with decreased urine output. He has altered mental status, poor historian. No fevers. He is not on pressors.HEAD AND NECK: No obvious head pain or neck pain. CARDIAC: No chest pain or pressors. GASTROINTESTINAL: No nausea, vomiting, diarrhea. No abdominal pain. GENITOURINARY: He did have a Lees with decreased urine output. PULMONARY: Mild cough and congestion, but no significant secretions or hemoptysis. SKIN: No rash. EXTREMITIES: Left foot fourth toe gangrene. NEUROLOGIC: No seizures. Generalized fatigue and weakness. PAST MEDICAL HISTORY: The patient's past medical history includes the following. The patient has past medical history of atrial fibrillation. The patient has history of end-stage renal disease on hemodialysis, anemia, hypertension, diabetes, COPD, HFpEF, history of hypoxia. He is also anemic with elevated creatinine. ALLERGIES: The patient has no known drug allergies. No antibiotic allergies. SOCIAL HISTORY: Negative for smoking, alcohol, or drug abuse. FAMILY HISTORY: Noncontributory. Negative for exposure to tuberculosis or cancer. MEDICATIONS: Upon reviewing the MAR, he is on following medications. He is on phytonadione, meropenem, vancomycin, hydrocodone, lisinopril, carvedilol, quetiapine,abx , docusate, Imdur, Zoloft, Sevelamer, atorvastatin, pantoprazole, acetaminophen, Zofran, Compazine, Reglan. Outside medications noted and reconciliated. PHYSICAL EXAMINATION: VITAL SIGNS: Temperature 98.8, pulse rate 101, respiratory rate 20, blood pressure 136/80, saturation 98%. GENERAL: Alert, no acute distress, but confused, poor historian. HEAD AND NECK: Oral exam, no thrush. Eyes, no icterus. Neck is supple. No JVD. Normocephalic. HEART: Regular. No obvious gallop or murmur. Tachycardic. ABDOMEN: Soft. Positive bowel sounds. Nontender. LUNGS: Fairly clear bilaterally. No rhonchi or rales. SKIN: No rash. MUSCULOSKELETAL: No effusion. Legs are without cellulitis. PERIPHERAL VASCULAR: He has a left foot fourth toe gangrene with odor. NEUROLOGIC: Generalized weakness, not a very good historian. Opens his eyes, responsive to certain extent but seems to be confused. LINE SITES: Without phlebitis. GENITOURINARY: Does have a Lees, decreased urine output. No CVA tenderness. LABORATORY DATA: Laboratory data as follows. White count yesterday was 14.1. White count today is 14.4, hemoglobin 9.7 and creatinine is 7.2. Blood cultures have been ordered, results are pending. Previous urine culture had Enterococcus sensitive to vancomycin. Stool studies for C.diff and culture negative. The patient is colonized with MRSA based on screening. Chest x-ray showed decreased congestion, no acute infiltrate or consolidation, did have an effusion also. No consolidation mentioned. Congestion and effusion both are decreased. The patient also had a x-ray of the left foot, no definite acute process. ASSESSMENT AND PLAN: 1. The patient has persistent leukocytosis, possible sepsis, altered mental status most likely source would be left foot fourth toe gangrene since there is odor to it and certainly could be source of sepsis and elevated white count. The patient did have Enterococcus urinary tract infection; however, the patient has been treated with vancomycin, which is appropriate treatment since it is sensitive to vancomycin. Chest x-ray shows no obvious pneumonia. Blood cultures are pending. At this time, the patient was on vancomycin. I have added meropenem for gram-negative anaerobic coverage in addition to MRSA coverage. Continue vancomycin and meropenem for left foot fourth toe gangrene, possible sepsis, elevated white count, and also this will cover Enterococcus. Continue meropenem and vancomycin for now. The patient will be transferred to [facility] for revascularization, eventual amputation. Follow up on blood cultures. Monitor leukocytosis. 2. The patient has end-stage renal disease on hemodialysis. 3. The patient has atrial fibrillation. 4. Pacemaker converter. 5. Anemia. 6. Hypertension. 7. Diabetes. 8. COPD. 9. HFpEF. 10. No known drug allergies. 11. Social history is negative. 12. Family history is noncontributory. 13. MAR was noted. 14. Case was discussed with RN. 15. Continue treatment per primary consultants. 16. Case discussed with Dr. Locke and RN. Ilya Thornton M.D. DR: Janette JOB#: [id number] CC: [place]
--- NOTE | 2019-06-04 12:14 | Cardiology Report ---
APPROVED REPORT EKG Measurement Heart [id number] Atrial fibrillation with rapid ventricular response Left axis deviation Low voltage QRS Inferior infarct, age undetermined Anteroseptal infarct, age undetermined Abnormal ECG
--- NOTE | 2019-06-04 12:18 | Cardiology Report ---
APPROVED REPORT EKG Measurement Heart [id number] Atrial fibrillation with RVR Low voltage QRS Possible Anterolateral infarct, age undetermined Abnormal ECG
[2019-06-05 12:22] LABS: APTT 1:1 NORMAL PLASMA 27.8 sec (22.9-30.2); APTT 1:1NP MIX CONTROL 30.8 sec (22.9-30.2)
--- NOTE | 2019-06-05 14:48 | Discharge Summary ---
Discharge Summary Hospital Course Date of Admission May 23, 2019 at 17:05 Date of Discharge Jun 03, 2019 at 21:00 Admitting Diagnosis Hypoxia Reason for Hospitalization: Hypoxia secondary to acute on chronic CHF exacerbation HPI Chintan Buchanan is a 69 year old male who was admitted on May 23, 2019 at 17:05 for Hypoxia 69 year oldmalewith a PMH of a fib on AC, ESRD on HD, anemia, htn, DM, COPD, HFPEF presented for acute hypoxic respiratory failure from shelter. Patient was also noted to be encephalopathic and refusing to use oxygen. Patient was also found to have UTI and placed on rocephin on admission. patient is a poor historian and unable to provide adequate history. Consultations Cardiology, nephrology, hematology, general surgery, vascular surgery, podiatry , infectious disease, psychiatry Procedures None Hospital Course 69 year oldmalewith a PMH of a fib on AC, ESRD on HD, anemia, htn, DM, COPD, HFPEF presented for acute respiratory failure secondary to acute on chronic CHF exacerbation. Patient was placed on nasal cannula. Nephrology was consulted continued with hemodialysis that allowed for improvement in volume status. Patient was also placed on cardiac meds for CHF. In regards to patient's encephalopathy, it is likely related to multifactorial causes including uremia, metabolic causes including infectious. Patient was also noted to have a UTI and placed on antibiotics. Patient had been on warfarin prior to admission and was noted to have supratherapeutic INR of 6. Warfarin was held and trended while in the hospital. Patient was also noted to have a left fourth gangrenous toe that was evaluated by surgery podiatry and vascular surgery. Initially it was thought to be dry gangrene, with plan for eventual angiogram by vascular surgery prior to amputation of toe. However during hospital stay patient developed a white count, with signs of possible infection at the fourth toe including malodor and moistness. Patient was placed on antibiotics including vancomycin and meropenem. Patient was discharged to SNF for outpatient evaluation by vascular surgery for angiogram prior to amputation of fourth toe. Patient remained encephalopathic, with a delirium, occasionally waking up and was able to tolerate a pured diet without signs of aspiration. However his nutritional needs will need to be evaluated with possible consideration of PEG. Patient was discharged to [facility]. Multiple discussions were held with all specialists involved in the case as there was high complexity and barriers and treatment plan. Hospital course and follow-up recommendations were discussed with Dr. Riccardo Saravia who is the primary physician who will be following patient in a nursing facility. Clarified with Dr. Saravia that patient should also be on meropenem including medications as listed. # elevated wbc 2/2 Left foot 4th metatarsal dry gangrene? , no other source yet identified - no diarrhea, fever, cough or sign on exam including any wounds, source may be left toe - ctm cbc in am - id consult, appreciate reqs - cont current abx: vanco - if diarrhea check cdiff # left 4th toe dry gangrene - appreciate consults belo - gsx - podiatry -vascular surgery - patient denied transfer to [facility] for angiogram and needs further medical optimization prior to angio #Toxic metabolic encephalopathy #Hospital delirium - non violent restraints - prn seroquel 12.5 for agitation - delirium precautions - psyche consult, appreciate reqs - neuro consult in am, appreciate reqs # UTI due to Enterococcus F - abx per ID as above # Acute Hypoxic Repiratory Failure likely 2/2 chf exacerbation- resolved - cardiac medications - echo with preserved EF 40-45 % - HD for fluid removal per Dr. Chen. HD 05/28, 05/30 and next 06/01 - RT - breathing treatments - Pulm Consult appreciated # Supratherapeutic INR - hold coumadin - vit k +/- FFP if patient bleeds -> 2.5mg vit po given 05/31 - daily INR needed - Pharmacy to dose. - heme consult, appreciate reqs f/u factors ordered - check actor VIII, PTT , PT, dic panel # Hyponatremia likely hypervolemic from chf - HD - CTM # ESRD - HD by Nephrology, Last HD 05/28 # Afib with episodes of WCT and AF with aberrancy, Dr. Stone consultation appreciated. Dr. Villegas covering this week. Digoxin was stopped and Carvedilol 25 mg BID - cont cardiac meds, management per cards - hold coumadin for now # Iron deficiency anemia - iron replacement # Dysphagia with aspiration risk - Discussed with ST - Dietary adjustment - Daily ST and adjustments as needed - GI consultation for PEG completed. Will proceed once INR is < 2, likely next week # Full Code # Dispo- SNF (prior resident) - Request PT and OT evaluation for mobility Extensive amount of time, >45 minutes spent in discussion of patients care and coordination and discussion with CM, staff at OSH, all specialists involved in case as above and administration. Discharge Medications New Medications: Aripiprazole* (Abilify*) 15 Mg Tablet 15 MG ORAL DAILY for 30 Days, #30 TAB Atorvastatin Calcium* (Lipitor*) 20 Mg Tablet 40 MG ORAL QHS for 30 Days, #30 TAB Carvedilol (Coreg) 25 Mg Tablet 25 MG ORAL EVERY 12 HOURS for 30 Days, #30 TAB Docusate Sodium* (Colace*) 100 Mg Capsule 100 MG ORAL THREE TIMES A DAY for 30 Days, #30 CAP Isosorbide Mononitrate (Isosorbide Mononitrate Er) 30 Mg Tab.er.24h 60 MG ORAL DAILY for 30 Days, #30 TAB Lisinopril* (Zestril*) 10 Mg Tablet 10 MG ORAL DAILY for 30 Days, #30 TAB Pantoprazole* (Pantoprazole*) 40 Mg Tablet.dr 40 MG ORAL EVERY 12 HOURS for 30 Days, #30 TAB Sertraline Hcl* (Zoloft*) 50 Mg Tablet 50 MG ORAL DAILY for 30 Days, #30 TAB Sevelamer Carbonate (Renvela) 800 Mg Tablet 1600 MG ORAL THREE TIMES A DAY for 30 Days, #30 TAB [[facility] pharmacy to dose] () 1 EA MISC 1 EA MISC DAILY PRN Vitamin B Cmplx/Vit C/Folic AC (Nephro-Saranya Tablet) 0.8 Mg Tablet 1 TAB ORAL DAILY for 30 Days, #30 TAB Discharge Condition Upon Discharge: stable Discharge Disposition Patient was discharged to SNF/Subacute Facility(03) Discharge Diagnoses: (1) Cardiomyopathy (2) Gangrene of toe (3) Anemia (4) Pulmonary hypertension (5) Hypercoagulable state (6) COPD (chronic obstructive pulmonary disease) (7) Pneumonia (8) Sepsis (9) UTI (lower urinary tract infection) (10) Diabetes (11) Acute metabolic encephalopathy (12) ESRF (end stage renal failure) (13) Cardiomyopathy (14) Elevated troponin I level Angie Locke DO Jun 05, 2019 14:48
== END 2019-06-03 21:00 | DRG 291 ==
LOC: EDBD 16:03 → EMR 16:47 → 2E 17:05 → EDBEDREQ 18:53 → 2E 05-24 20:49 → 4E 05-28 15:01
PROC: 5A1D70Z Performance of Urinary Filtration, Intermittent, Less than 6 Hours Per Day (ICD-10-PCS; principal; 2019-05-23)
DX: I13.2 Hypertensive heart and chronic kidney disease with heart failure and with stage 5 chronic kidney disease, or end stage renal disease (principal); J96.01 Acute respiratory failure with hypoxia; N18.6 End stage renal disease; I50.33 Acute on chronic diastolic (congestive) heart failure; N39.0 Urinary tract infection, site not specified; E87.1 Hypo-osmolality and hyponatremia; E11.52 Type 2 diabetes mellitus with diabetic peripheral angiopathy with gangrene; I96 Gangrene, not elsewhere classified; D50.9 Iron deficiency anemia, unspecified; J44.9 Chronic obstructive pulmonary disease, unspecified; G30.9 Alzheimer's disease, unspecified; F02.80 Dementia in other diseases classified elsewhere, unspecified severity, without behavioral disturbance, psychotic disturbance, mood disturbance, and anxiety; I48.0 Paroxysmal atrial fibrillation; Z99.81 Dependence on supplemental oxygen; Z99.2 Dependence on renal dialysis; R62.7 Adult failure to thrive; Z68.26 Body mass index [BMI] 26.0-26.9, adult; R00.0 Tachycardia, unspecified; F32.9 Major depressive disorder, single episode, unspecified; F41.9 Anxiety disorder, unspecified; R13.10 Dysphagia, unspecified; Z95.0 Presence of cardiac pacemaker; B95.2 Enterococcus as the cause of diseases classified elsewhere
CPT/HCPCS: 36415; 36600; 71045; 74230; 75635; 78579; 78580; 80048; 80053; 80061; 80076; 80162; 80202; 81003; 82140; 82550; 82553; 82607; 82728; 82746; 82803; 82962; 82977; 83036; 83540; 83550; 83605; 83690; 83735; 83880; 84100; 84484; 84550; 85025; 85220; 85240; 85260; 85362; 85379; 85384; 85610; 85670; 85730; 86140; 86706; 87040; 87045; 87081; 87086; 87181; 87324; 93005; 93306; 93922; 93925; 93930; 93970; 94640; 96365; 99285; A9503; J3430; J7620